=== PATIENT | male | born 1945 | race Caucasian/White ===

== ENCOUNTER 2023-11-19 16:48 | Inpatient (IN) ==
[2023-11-19 17:32] LABS: Basophils # (auto) 0.05 K/uL (0.00-0.20); Basophils % (auto) 0.6 %; Eosinophils # (auto) 0.24 K/uL (0.00-0.50); Hematocrit (blood only) 43.3 % (42.0-52.0); Immature Granulocytes # (auto) 0.02 K/uL (0.01-0.20); Immature Granulocytes % (auto) 0.2 %; Lymphocytes # (auto) 1.42 K/uL (1.20-3.40); Lymphocytes % (auto) 17.5 %; Mean Corpuscular Hemoglobin 30.4 pg (25.0-34.0); Mean Corpuscular Hgb Conc 32.3 g/dL (32.0-36.0); Mean Corpuscular Volume 94.1 fL (80.0-100.0); Mean Platelet Volume 10.2 fL (9.4-12.4); Monocytes # (auto) 0.71 K/uL (0.11-0.59); Monocytes % (auto) 8.7 %; Neutrophils # (auto) 5.69 K/uL (1.40-6.50); Platelet Count 263 K/uL (130-400); RDW Coefficient of Variation 12.8 % (11.5-14.5); White Blood Count 8.13 K/ul (4.8-10.8)
--- NOTE | 2023-11-19 17:36 | XRay Report ---
XR chest 1V not portable HISTORY: 78 years-old Male Chest pain, nonspecific COMPARISON: 11/09/2011 TECHNIQUE: AP view chest FINDINGS: Cardiac silhouette is enlarged. Right IJ Ukisqv-d-Ryag catheter is in place. No pneumothorax. Layerin g left greater than right pleural effusions with bibasilar consolidation. Pulmonary vascular congesti on. Bilateral articulation with pulmonary nodules. Degenerative changes of the shoulders and spine. L umbar spinal fusion hardware. IMPRESSION: 1. Cardiomegaly with pulmonary vascular congestion. 2. Layering pleural effusions with left greater than right bibasilar consolidation. 2. Bilateral pulmonary nodules are noted in addition to a right IJ Fkudtl-i-Braj catheter. Correlate with oncologic history. ACT 112: Negative or not required by law. The above report was generated using voice recognition software. It may contain grammatical, syntax o r spelling errors. Electronically signed by: Narendra Mckee M.D. 11/19/2023 5:35 PM
[2023-11-19 17:48] LABS: Albumin Globulin Ratio 1.5 (0.9-2); Albumin Level 4.4 gm/dl (3.4-5.0); BUN Creatinine Ratio 12.1 (10-20); Bilirubin,Total 0.4 mg/dl (0.2-1.0); Calcium 9.3 mg/dl (8.6-10.3); Creatinine Clr Calc Pharmacy 26.6 ml/min; Est GFR (African American) 33.2 ml/min; Est GFR (Non-African American) 28.6 ml/min; Globulin 2.9 gm/dl (2.5-4.0); Potassium 4.3 mmol/L (3.5-5.1); Total Protein 7.3 gm/dl (6.0-8.3)
[2023-11-19 17:54] LABS: Troponin I High Sensitivity 5.3 pg/ml (0-20)
[2023-11-19 17:59] LABS: Partial Thromboplastin Ratio 1.1; Partial Thromboplastin Time 32 Seconds (21-31); Prothrombin Time 11.2 Seconds (9.0-12.0)
--- NOTE | 2023-11-19 18:49 | Emergency Department Note ---
Impression & Plan BRUCE (acute kidney injury), Pleural effusion ED Provider Note NAME: PIETER ZIEGLER III AGE: 78 SEX: M : 1945 ARRIVES VIA: Walk-In INFORMANT: Patient, ED PROVIDER(S): Joao Perez MD CHIEF COMPLAINT: Shortness of breath HPI: This is a 78-year-old male with history of metastatic renal cancer presenting for shortness of breath. Patient states that over the past 1 week he has had chest pain in his right lower chest as well as left chest as well. He notes it is intermittent but mostly worse with exertion. He notes that he is extremely short of breath especially with walking. He states he cannot walk more than a few feet without feeling extremely winded. He notes that he follows with heme-onc at [facility] who gives him Keytruda every 21 days. His last treatment was about 2 weeks ago. Denies any cardiac history shows heart attack, CHF. No history of blood clots, is on no blood thinners. No current fever chills nausea or vomiting. No recent leg swelling or leg pain. Patient mentions that he has his left kidney completely moved due to his renal carcinoma only has his right now. ROS: See above HPI for pertinent positives & negatives. A total of 10 systems reviewed and were otherwise negative. PAST MEDICAL HISTORY: See Below PAST SURGICAL HISTORY: See Below FAMILY HISTORY: See Below SOCIAL HISTORY: See Below HOME MEDICATIONS: See Below ALLERGIES: See Below VITALS: See Below PHYSICAL EXAMINATION: General: resting comfortably in no acute distress Head: Normocephalic and atraumatic Eyes: Normal inspection, extraocular muscles intact Ear, nose, throat: Normal external exam Neck: Normal range of motion Respiratory: Diminished lung sounds at the left Cardiovascular: Regular rate/rhythm, no murmur GI: soft, nontender, no guarding or rebound Extremities: nontender, moves all extremities, no swelling, 2+ pulses in all extremities Neuro: The patient awake and alert, appropriately conversive, no focal deficits, symmetric faces Skin: Warm, dry, and intact MEDICAL DECISION MAKING: Is a 78-year-old male with history of metastatic renal cancer resenting for shortness of breath. Consider multiple including PE, ACS, pleural effusion, metastatic CA, pneumonia. -Upon record review, it appears that patient's previous creatinine was 1.7, now is 2.5. He only has 1 kidney and making this somewhat concerning for an BRUCE. -Otherwise patient does have a chest x-ray that as per independent interpretation reveals a left pleural effusion without focal opacity or pneumothorax. -Blood work otherwise reveals no leukocytosis, anemia, no significant electrolyte disturbances, LFTs within normal limits. Troponin and BNP are both within normal limits as well. -Patient is significantly dyspneic with exertion, diabetes is like related to his pleural effusion. This may be metastatic in etiology. Otherwise patient required mission for the pleural effusions as well as BRUCE and solitary kidney. -There is a slight concern for PE as patient's cancer he has not tachycardic or hypoxic making this lower likelihood. -ECG independently interpreted by me with normal sinus rhythm, rate of 60, normal axis, normal MD, normal QRS, normal QTc, no ST segment elevations consistent with STEMI criteria Differential diagnosis: See above ER treatment provided: See below Diagnostics interpreted by me: ECG: See above Cardiac Monitoring: An order was placed for continuous cardiac monitoring. The monitor shows a rate of 67 with sinus rhythm. Laboratory studies: As stated above and show below. Imaging studies: See below. Past Med/Surg History Social History Smoking Status: Never smoker Feels Safe at Home: Yes Allergies Allergies Allergy/AdvReac Type Severity Reaction Status Date / Time lisinopril Allergy Severe LIP EDEMA Verified 11/19/23 19:05 Home Meds Home Medications Medication Instructions Recorded Confirmed aspirin 81 mg tablet,delayed 81 mg PO QPM 11/19/23 11/19/23 release atorvastatin 20 mg tablet 20 mg PO QPM 11/19/23 11/19/23 diclofenac sodium 1 % topical gel 2 g topical QID PRN Pain 11/19/23 11/19/23 doxazosin 4 mg tablet 4 mg PO QPM 11/19/23 11/19/23 doxycycline hyclate 100 mg capsule 100 mg PO BID PRN LYME FLARE-UPS 11/19/23 11/19/23 famotidine 40 mg tablet 40 mg PO HS PRN 11/19/23 11/19/23 HEARTBURN/INDIGESTION gabapentin 600 mg tablet See Rx Instructions .Route .COMPLEX 11/19/23 11/19/23 lidocaine 5 % topical patch 1 patch topical DAILY PRN Pain 11/19/23 11/19/23 lidocaine-prilocaine 2.5 %-2.5 % 1 applic topical DIRECTED PRN 1 11/19/23 11/19/23 topical cream HR PRIOR TO MEDIPORT ACCESS modafinil 100 mg tablet 100 mg PO DIRECTED PRN Fatigue 11/19/23 11/19/23 multivitamin 1 tab PO QPM 11/19/23 11/19/23 omeprazole 20 mg capsule,delayed 20 mg PO QPM 11/19/23 11/19/23 release ondansetron HCl 8 mg tablet 8 mg PO Q8H PRN NAUSEA/VOMITING 11/19/23 11/19/23 prochlorperazine maleate 10 mg 10 mg PO Q6H PRN NAUSEA/VOMITING 11/19/23 11/19/23 tablet (Compazine) tramadol 50 mg tablet 50 mg PO Q8H PRN Pain 11/19/23 11/19/23 Results & Data (ED) Vital Signs Vital Signs - 24 hr 11/19/23 17:03 11/19/23 17:56 11/19/23 18:35 Temperature 36.8 C Temperature Source Temporal Artery Scan Pulse Rate 68 57 L Pulse Rate [Finger] 60 Respiratory Rate 16 18 Respiratory Effort / Characteristics Non-Labored Spontaneous Non-Labored Spontaneous Respiratory Depth Normal Normal Blood Pressure 115/74 Blood Pressure [Left Arm] 115/69 Blood Pressure Mean 87 Blood Pressure Mean [Left Arm] 84 Blood Pressure Position Sitting Pulse Oximetry 93 95 Oxygen Delivery Method Room Air Room Air Sepsis Recent Fever Within 48 Hours No Sepsis New/Unexplained Change in Mental Status N/A Sepsis Action Taken by Nursing No Action Required 11/19/23 21:00 11/19/23 22:02 Temperature Temperature Source Pulse Rate 67 Pulse Rate [Finger] 58 L Respiratory Rate 14 Respiratory Effort / Characteristics Respiratory Depth Blood Pressure Blood Pressure [Left Arm] 154/88 H Blood Pressure Mean Blood Pressure Mean [Left Arm] 110 Blood Pressure Position Pulse Oximetry 93 Oxygen Delivery Method Room Air Sepsis Recent Fever Within 48 Hours Sepsis New/Unexplained Change in Mental Status Sepsis Action Taken by Nursing Laboratory Data 11/19/23 17:10 11/19/23 17:10 Lab Results 11/19/23 Range/Units 17:10 WBC 8.13 (4.8-10.8) K/ul RBC 4.60 L (4.70-6.10) M/uL Hgb 14.0 (14.0-18.0) g/dl Hct 43.3 (42.0-52.0) % MCV 94.1 (80.0-100.0) fL MCH 30.4 (25.0-34.0) pg MCHC 32.3 (32.0-36.0) g/dL RDW Std Deviation 44.0 (36.4-46.3) fL RDW Coeff of Karlene 12.8 (11.5-14.5) % Plt Count 263 (130-400) K/uL MPV 10.2 (9.4-12.4) fL Immature Gran % (Auto) 0.2 % Neut % (Auto) 70.0 % Lymph % (Auto) 17.5 % [place] % (Auto) 8.7 % Eos % (Auto) 3.0 % Baso % (Auto) 0.6 % Neut # (Auto) 5.69 (1.40-6.50) K/uL Lymph # (Auto) 1.42 (1.20-3.40) K/uL [place] # (Auto) 0.71 H (0.11-0.59) K/uL Eos # (Auto) 0.24 (0.00-0.50) K/uL Baso # (Auto) 0.05 (0.00-0.20) K/uL Immature Gran # (Auto) 0.02 (0.01-0.20) K/uL PT 11.2 (9.0-12.0) Seconds INR 1.0 (0.9-1.1) APTT 32 H (21-31) Seconds PTT Ratio 1.1 Sodium 137 (136-145) mmol/L Potassium 4.3 (3.5-5.1) mmol/L Chloride 102 (98-107) mmol/L Carbon Dioxide 26 (21-32) mmol/L Anion Gap 9 (3-11) BUN 26 H (6-23) mg/dl Creatinine 2.15 H (0.6-1.4) mg/dl Est Cr Clr Drug Dosing 26.6 ml/min Est GFR ( Amer) 33.2 ml/min Est GFR (Non-Af Amer) 28.6 ml/min BUN/Creatinine Ratio 12.1 (10-20) Glucose 135 H (70-99(Fasting)) mg/dl Calcium 9.3 (8.6-10.3) mg/dl Total Bilirubin 0.4 (0.2-1.0) mg/dl AST 21 (13-39) U/L ALT 15 (7-52) U/L Alkaline Phosphatase 98 (34-104) U/L Troponin I High Sens 5.3 (0-20) pg/ml B-Natriuretic Peptide 39 (0-100) pg/ml Total Protein 7.3 (6.0-8.3) gm/dl Albumin 4.4 (3.4-5.0) gm/dl Globulin 2.9 (2.5-4.0) gm/dl Albumin/Globulin Ratio 1.5 (0.9-2) Administered Medications Acetaminophen (Acetaminophen 325 Mg Tab) 650 mg PO Q4H PRN PRN Reason: Pain or Fever Stop: 12/19/23 23:18 Last Admin: 11/19/23 23:32 Dose: 650 mg Documented By: NABIL Discontinued Medications Aspirin (Aspirin 81 Mg Ectab) 81 mg PO NOW STA Stop: 11/19/23 22:30 Last Admin: 11/19/23 23:10 Dose: 81 mg Documented By: NABIL Atorvastatin Calcium (Atorvastatin 20 Mg Tab) 20 mg PO NOW STA Stop: 11/19/23 22:30 Last Admin: 11/19/23 23:11 Dose: 20 mg Documented By: NABIL Doxazosin Mesylate (Doxazosin Mesylate 4 Mg Tab) 4 mg PO NOW STA Stop: 11/19/23 22:30 Last Admin: 11/19/23 23:12 Dose: 4 mg Documented By: NABIL Famotidine (Famotidine 40 Mg Tablet) 40 mg PO NOW STA Stop: 11/19/23 22:47 Last Admin: 11/19/23 23:13 Dose: 40 mg Documented By: NABIL Gabapentin (Gabapentin 600 Mg Tab) 1,200 mg PO NOW STA Stop: 11/19/23 22:30 Last Admin: 11/19/23 23:10 Dose: 1,200 mg Documented By: NABIL Pantoprazole Sodium (Pantoprazole 40 Mg Tab) 40 mg PO NOW STA Stop: 11/19/23 22:30 Last Admin: 11/19/23 23:10 Dose: 40 mg Documented By: NABIL Tramadol HCl (Tramadol Hcl 50 Mg Tablet) 50 mg PO NOW STA Stop: 11/19/23 21:40 Last Admin: 11/19/23 21:44 Dose: 50 mg Documented By: BMK Imaging Data Radiologist's Impression: Chest X-Ray 11/19/23 17:07 XR chest 1V not portable HISTORY: 78 years-old Male Chest pain, nonspecific COMPARISON: 11/09/2011 TECHNIQUE: AP view chest FINDINGS: Cardiac silhouette is enlarged. Right IJ Ilqcax-s-Avca catheter is in place. No pneumothorax. Layering left greater than right pleural effusions with bibasilar consolidation. Pulmonary vascular congestion. Bilateral articulation with pulmonary nodules. Degenerative changes of the shoulders and spine. Lumbar spinal fusion hardware. IMPRESSION: 1. Cardiomegaly with pulmonary vascular congestion. 2. Layering pleural effusions with left greater than right bibasilar consolidation. 2. Bilateral pulmonary nodules are noted in addition to a right IJ Xcxqgt-d-Lgzz catheter. Correlate with oncologic history. ACT 112: Negative or not required by law. The above report was generated using voice recognition software. It may contain grammatical, syntax or spelling errors. Electronically signed by: Narendra Mckee M.D. 11/19/2023 5:35 PM Discharge Plan Visit Data Chief Complaint: Shortness of Breath/Dyspnea Stated Complaint: TROUBLE BREATHING/SOB/PAINFUL, CHEST/BACK PAIN ED Provider: Joao Perez Discharge Problem: BRUCE (acute kidney injury), Pleural effusion Patient Disposition: Admitted As Inpatient Discharge Instructions Interventions: ED Discharge Assessment Last Done: 11/19/23 23:19
[2023-11-19] MEDS: traMADol HCL 50 MG TABLET PO STA (21:44)
--- NOTE | 2023-11-19 22:54 | History & Physical Report ---
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 Minimal exertion making very short of breath. Has some cough. No fevers. Has lower abdominal pain. No headache. No blurred visions. No runny nose or sore throat. Appetite is okay. No nausea. No diarrhea or constipation. No blood in stools. Normal bladder movements. Hemodynamics are okay. Shortness of breath Patient is on Keytruda for recurrence of renal cancer and worried could be side effect Possible pleural effusion chest x-ray Will do CT chest Will do VQ scan Nebs as needed Will check echocardiogram Close monitor Chest pains EKG and troponin okay Will follow serial enzymes and echo Consult cardiology in a.m. Hyperlipidemia On statin GERD Omeprazole BPH On doxazosin CKD stage III Presented creatinine of 2.1 Baseline creatinine seems to around 1.7-2 Will follow labs Transitional cell renal carcinoma on the left side S/p nephrectomy Recurrence Currently on Keytruda Follows with [facility] DVT prophylaxis Heparin subcu Disposition Telemetry Addendum: CT chest shows: 1. Multiple bilateral pulmonary nidus, consistent with metastasis. Correlate for primary malignancy. 2. Hepatic metastasis are also present. 3. Mild thickening/lymphadenopathy in the LEFT upper quadrant between the spleen and diaphragm, which is indeterminate. Evaluation limited without contrast. 4. Large LEFT pleural effusion. Consulted pulmonary. May need to discuss with the heme-onc Dr. 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 Minimal exertion making very short of breath. Has some cough. No fevers. Has lower abdominal pain. No headache. No blurred visions. No runny nose or sore throat. Appetite is okay. No nausea. No diarrhea or constipation. No blood in stools. Normal bladder movements. Hemodynamics are okay. Past medical history. As mentioned above Past surgical history. Appendectomy. Bladder instillation. Cystoscopy with lithotripsy. Cystoscopy and stent placement. Cystoscopy for treatment of bladder tumor. Cystourethroscopy with biopsy. Leg stents. Robotic laparoscopic left nephrectomy. Lumbar surgery. Kidney stone. TURP. Social history. . Quit smoking 2001. Smoked 3 packs a day for 33 years. Alcohol rarely. No drug use Family history. Brother had a heart attack. Mother had stomach aneurysm. Paternal aunt had stomach aneurysm Allergies Allergy/AdvReac Type Severity Reaction Status Date / Time lisinopril Allergy Severe LIP EDEMA Verified 11/19/23 19:05 Home Medications Medication Instructions Recorded Confirmed Type aspirin 81 mg tablet,delayed 81 mg PO QPM 11/19/23 11/19/23 History release atorvastatin 20 mg tablet 20 mg PO QPM 11/19/23 11/19/23 History diclofenac sodium 1 % topical gel 2 g topical QID PRN Pain 11/19/23 11/19/23 History doxazosin 4 mg tablet 4 mg PO QPM 11/19/23 11/19/23 History doxycycline hyclate 100 mg capsule 100 mg PO BID PRN LYME FLARE-UPS 11/19/23 11/19/23 History famotidine 40 mg tablet 40 mg PO HS PRN 11/19/23 11/19/23 History HEARTBURN/INDIGESTION gabapentin 600 mg tablet See Rx Instructions .Route .COMPLEX 11/19/23 11/19/23 History lidocaine 5 % topical patch 1 patch topical DAILY PRN Pain 11/19/23 11/19/23 History lidocaine-prilocaine 2.5 %-2.5 % 1 applic topical DIRECTED PRN 1 11/19/23 11/19/23 History topical cream HR PRIOR TO MEDIPORT ACCESS modafinil 100 mg tablet 100 mg PO DIRECTED PRN Fatigue 11/19/23 11/19/23 History multivitamin 1 tab PO QPM 11/19/23 11/19/23 History omeprazole 20 mg capsule,delayed 20 mg PO QPM 11/19/23 11/19/23 History release ondansetron HCl 8 mg tablet 8 mg PO Q8H PRN NAUSEA/VOMITING 11/19/23 11/19/23 History prochlorperazine maleate 10 mg 10 mg PO Q6H PRN NAUSEA/VOMITING 11/19/23 11/19/23 History tablet (Compazine) tramadol 50 mg tablet 50 mg PO Q8H PRN Pain 11/19/23 11/19/23 History Past Med/Surg History Social History Smoking Status: Never smoker Hx Alcohol Use: No Hx Substance Use: No Preferred Language: Malay Communication Ability: Effective Food Service Coordinator Required: No Beliefs That Will Affect Care: None Current Living Situation: Spouse Other Information That Helps Us Care for You: No Feels Safe at Home: Yes Safety Concerns: Feels Safe At This Time Assistive Devices: Cane Review of Systems Review of Systems: All systems reviewed & are unremarkable except as noted in HPI & below Physical Exam Physical Exam: General- Not in distress Head- atraumatic Eyes- PERRL ENT- oropharynx clear Neck- supple, no JVD. Lungs- clear to auscultation mild bibasilar crackles, no wheezing Heart- regular rhythm; no murmur, no gallop. Abdomen- normal bowel sounds, soft, nontender, no distension. Extremities- no pretibial edema, no erythema seen. Neuro- alert, oriented PERRL, no facial palsy; no dysarthria; moves extremities. Skin- warm & dry Results & Data Results & Data Vital Signs (Past 12 Hours) Vital Signs Temp Pulse Pulse Resp BP BP Pulse Ox 11/19/23 22:02 67 11/19/23 21:00 58 L 14 154/88 H 93 11/19/23 18:35 57 L 11/19/23 17:56 60 18 115/69 95 11/19/23 17:03 36.8 C 68 16 115/74 93 O2 Del Method 11/19/23 22:02 11/19/23 21:00 Room Air 11/19/23 18:35 11/19/23 17:56 Room Air 11/19/23 17:03 Room Air Diagnostic Findings Laboratory Results WBC 8.13 K/ul (4.8-10.8) 11/19/23 17:10 RBC 4.60 M/uL (4.70-6.10) L 11/19/23 17:10 Hgb 14.0 g/dl (14.0-18.0) 11/19/23 17:10 Hct 43.3 % (42.0-52.0) 11/19/23 17:10 MCV 94.1 fL (80.0-100.0) 11/19/23 17:10 MCH 30.4 pg (25.0-34.0) 11/19/23 17:10 MCHC 32.3 g/dL (32.0-36.0) 11/19/23 17:10 RDW Std Deviation 44.0 fL (36.4-46.3) 11/19/23 17:10 RDW Coeff of Karlene 12.8 % (11.5-14.5) 11/19/23 17:10 Plt Count 263 K/uL (130-400) 11/19/23 17:10 MPV 10.2 fL (9.4-12.4) 11/19/23 17:10 Immature Gran % (Auto) 0.2 % 11/19/23 17:10 Neut % (Auto) 70.0 % 11/19/23 17:10 Lymph % (Auto) 17.5 % 11/19/23 17:10 [place] % (Auto) 8.7 % 11/19/23 17:10 Eos % (Auto) 3.0 % 11/19/23 17:10 Baso % (Auto) 0.6 % 11/19/23 17:10 Neut # (Auto) 5.69 K/uL (1.40-6.50) 11/19/23 17:10 Lymph # (Auto) 1.42 K/uL (1.20-3.40) 11/19/23 17:10 [place] # (Auto) 0.71 K/uL (0.11-0.59) H 11/19/23 17:10 Eos # (Auto) 0.24 K/uL (0.00-0.50) 11/19/23 17:10 Baso # (Auto) 0.05 K/uL (0.00-0.20) 11/19/23 17:10 Immature Gran # (Auto) 0.02 K/uL (0.01-0.20) 11/19/23 17:10 PT 11.2 Seconds (9.0-12.0) 11/19/23 17:10 INR 1.0 (0.9-1.1) 11/19/23 17:10 APTT 32 Seconds (21-31) H 11/19/23 17:10 PTT Ratio 1.1 11/19/23 17:10 Sodium 137 mmol/L (136-145) 11/19/23 17:10 Potassium 4.3 mmol/L (3.5-5.1) 11/19/23 17:10 Chloride 102 mmol/L (98-107) 11/19/23 17:10 Carbon Dioxide 26 mmol/L (21-32) 11/19/23 17:10 Anion Gap 9 (3-11) 11/19/23 17:10 BUN 26 mg/dl (6-23) H 11/19/23 17:10 Creatinine 2.15 mg/dl (0.6-1.4) H 11/19/23 17:10 Est Cr Clr Drug Dosing 26.6 ml/min 11/19/23 17:10 Est GFR ( Amer) 33.2 ml/min 11/19/23 17:10 Est GFR (Non-Af Amer) 28.6 ml/min 11/19/23 17:10 BUN/Creatinine Ratio 12.1 (10-20) 11/19/23 17:10 Glucose 135 mg/dl (70-99(Fasting)) H 11/19/23 17:10 Calcium 9.3 mg/dl (8.6-10.3) 11/19/23 17:10 Total Bilirubin 0.4 mg/dl (0.2-1.0) 11/19/23 17:10 AST 21 U/L (13-39) 11/19/23 17:10 ALT 15 U/L (7-52) 11/19/23 17:10 Alkaline Phosphatase 98 U/L (34-104) 11/19/23 17:10 Troponin I High Sens 5.3 pg/ml (0-20) 11/19/23 17:10 B-Natriuretic Peptide 39 pg/ml (0-100) 11/19/23 17:10 Total Protein 7.3 gm/dl (6.0-8.3) 11/19/23 17:10 Albumin 4.4 gm/dl (3.4-5.0) 11/19/23 17:10 Globulin 2.9 gm/dl (2.5-4.0) 11/19/23 17:10 Albumin/Globulin Ratio 1.5 (0.9-2) 11/19/23 17:10 Impressions Chest X-Ray 11/19/23 17:07 XR chest 1V not portable HISTORY: 78 years-old Male Chest pain, nonspecific COMPARISON: 11/09/2011 TECHNIQUE: AP view chest FINDINGS: Cardiac silhouette is enlarged. Right IJ Qruiji-l-Qjzt catheter is in place. No pneumothorax. Layering left greater than right pleural effusions with bibasilar consolidation. Pulmonary vascular congestion. Bilateral articulation with pulmonary nodules. Degenerative changes of the shoulders and spine. Lumbar spinal fusion hardware. IMPRESSION: 1. Cardiomegaly with pulmonary vascular congestion. 2. Layering pleural effusions with left greater than right bibasilar consolidation. 2. Bilateral pulmonary nodules are noted in addition to a right IJ Cksmbl-s-Owub catheter. Correlate with oncologic history. ACT 112: Negative or not required by law. The above report was generated using voice recognition software. It may contain grammatical, syntax or spelling errors. Electronically signed by: Narendra cMkee M.D. 11/19/2023 5:35 PM ECG Additional Comments: ECG. Sinus rhythm with short HI. Rate of 60. Nonspecific T wave abnormalities. Code Status & VTE Plan VTE Prophylaxis Plan VTE Prophylaxis will be ordered: Yes
[2023-11-19] MEDS: PANTOprazole 40 MG TAB PO STA (23:10)
[2023-11-19] MEDS: ASPIRIN 81 MG ECTAB PO STA (23:10)
[2023-11-19] MEDS: GABAPENTIN 600 MG TAB PO STA (23:10)
[2023-11-19] MEDS: ATORVASTATIN 20 MG TAB PO STA (23:11)
[2023-11-19] MEDS: DOXAZosin MESYLATE 4 MG TAB PO STA (23:12)
[2023-11-19] MEDS: FAMOTIDINE 40 MG TABLET PO STA (23:13)
[2023-11-19] MEDS ORDERED: NITROGLYCERIN SL 0.4 MG/TAB TAB SL PRN (23:19)
[2023-11-19] MEDS ORDERED: LIDOCAINE 5% 1 PATCH TD PRN (23:19)
[2023-11-19] MEDS ORDERED: DOXYCYCLINE HYCLATE 100 MG CAP PO PRN (23:19)
[2023-11-19] MEDS ORDERED: DICLOFENAC SOD 1% GEL 100 GM TUBE EXT PRN (23:19)
[2023-11-19] MEDS ORDERED: FAMOTIDINE 40 MG TABLET PO PRN (23:19)
[2023-11-19] MEDS ORDERED: LIDOCAINE/PRILOCAINE 2.5% EA CRM EXT PRN (23:19)
[2023-11-19] MEDS ORDERED: POLYETHYLENE (MIRALAX) 17 GM PACK PO PRN (23:19)
[2023-11-19] MEDS ORDERED: modafiniL 100 MG TAB PO PRN (23:19)
[2023-11-19] MEDS ORDERED: LEVALBUTEROL 1.25 MG/3 ML NEB NEB PRN (23:19)
[2023-11-19] MEDS: ACETAMINOPHEN 325 MG TAB PO PRN (23:32)
--- NOTE | 2023-11-20 00:13 | CT Scan Report ---
Exam(s): CT CHEST Without Contrast EXAM: CT Chest Without Intravenous Contrast CLINICAL HISTORY: Reason for exam: chest pain and sob. TECHNIQUE: Axial computed tomography images of the chest without intravenous contrast. Automated exposure control was utilized for the study. A dose lowering technique was utilized adhering to the principles of ALARA. COMPARISON: No relevant prior studies available. FINDINGS: Lungs: Multiple bilateral pulmonary nidus, consistent with metastasis. Correlate for primary malignancy. No consolidation. Pleural space: Large LEFT pleural effusion. No pneumothorax. Heart: Unremarkable. No cardiomegaly. No significant pericardial effusion. No significant coronary artery calcifications. Bones/joints: Degenerative changes of the spine. No acute fracture. No dislocation. Soft tissues: Unremarkable. Vasculature: Atherosclerotic changes of the aorta. No thoracic aortic aneurysm. Lymph nodes: Mild thickening/lymphadenopathy in the LEFT upper quadrant between the spleen and diaphragm, which is indeterminate. Evaluation limited without contrast. Liver: Hepatic metastasis are also present. IMPRESSION: 1. Multiple bilateral pulmonary nidus, consistent with metastasis. Correlate for primary malignancy. 2. Hepatic metastasis are also present. 3. Mild thickening/lymphadenopathy in the LEFT upper quadrant between the spleen and diaphragm, which is indeterminate. Evaluation limited without contrast. 4. Large LEFT pleural effusion. Electronically signed by: Jason Hutchins MD 11/20/23 00:12 AM
--- NOTE | 2023-11-20 00:14 | CT Scan Report ---
Exam(s): CT ABDOMEN + PELVIS Without Contrast EXAM: CT Abdomen and Pelvis Without Intravenous Contrast CLINICAL HISTORY: Reason for exam: abdominal pain. hx of renal cancer. TECHNIQUE: Axial computed tomography images of the abdomen and pelvis without intravenous contrast. Automated exposure control was utilized for the study. A dose lowering technique was utilized adhering to the principles of ALARA. COMPARISON: No relevant prior studies available. FINDINGS: Lung bases: Unremarkable. No mass. No consolidation. ABDOMEN: Liver: Hepatic metastases. Gallbladder and bile ducts: Unremarkable. No calcified stones. No ductal dilation. Pancreas: Unremarkable. No ductal dilation. Spleen: Unremarkable. No splenomegaly. Adrenals: Unremarkable. No mass. Kidneys and ureters: Multiple renal cysts. LEFT nephrectomy, correlate for history of renal cell carcinoma. Stomach and bowel: Diverticulosis, without acute diverticulitis. No small bowel obstruction. No free intraperitoneal air. PELVIS: Appendix: No findings to suggest acute appendicitis. Bladder: Unremarkable. No stones. Reproductive: Vasectomy clips. ABDOMEN and PELVIS: Intraperitoneal space: Unremarkable. No free air. No significant fluid collection. Bones/joints: Degenerative changes of the spine. Multilevel posterior lumbar fusion hardware. No acute fracture. No dislocation. Soft tissues: Unremarkable. Vasculature: Atherosclerotic changes of the aorta. No abdominal aortic aneurysm. Lymph nodes: Enlarged retroperitoneal lymph nodes, preferentially located on the LEFT side of the aorta. Mild scarring between the spleen and LEFT hemidiaphragm. IMPRESSION: 1. Enlarged retroperitoneal lymph nodes, preferentially located on the LEFT side of the aorta. Mild scarring between the spleen and LEFT hemidiaphragm. 2. Hepatic metastases. 3. Multiple renal cysts. LEFT nephrectomy, correlate for history of renal cell carcinoma. 4. Diverticulosis, without acute diverticulitis. No small bowel obstruction. No free intraperitoneal air. Electronically signed by: Jason Hutchins MD 11/20/23 00:13 AM
[2023-11-20] MEDS: traMADol HCL 50 MG TABLET PO PRN (00:29)
[2023-11-20 04:13] LABS: Basophils # (auto) 0.06 K/uL (0.00-0.20); Basophils % (auto) 0.9 %; Eosinophils # (auto) 0.29 K/uL (0.00-0.50); Eosinophils % (auto) 4.2 %; Hemoglobin 12.5 g/dl (14.0-18.0); Immature Granulocytes # (auto) 0.02 K/uL (0.01-0.20); Immature Granulocytes % (auto) 0.3 %; Lymphocytes # (auto) 1.31 K/uL (1.20-3.40); Lymphocytes % (auto) 18.8 %; Mean Corpuscular Hemoglobin 30.8 pg (25.0-34.0); Mean Corpuscular Hgb Conc 32.9 g/dL (32.0-36.0); Mean Corpuscular Volume 93.6 fL (80.0-100.0); Mean Platelet Volume 10.4 fL (9.4-12.4); Monocytes # (auto) 0.72 K/uL (0.11-0.59); Monocytes % (auto) 10.4 %; Neutrophils # (auto) 4.55 K/uL (1.40-6.50); Neutrophils % (auto) 65.4 %; Platelet Count 230 K/uL (130-400); RDW Coefficient of Variation 12.5 % (11.5-14.5); RDW Standard Deviation 43.1 fL (36.4-46.3); Red Blood Count 4.06 M/uL (4.70-6.10); White Blood Count 6.95 K/ul (4.8-10.8)
[2023-11-20 04:28] LABS: BUN Creatinine Ratio 13.2 (10-20); Calcium 8.6 mg/dl (8.6-10.3); Creatinine Clr Calc Pharmacy 30.2 ml/min; Est GFR (African American) 38.8 ml/min; Est GFR (Non-African American) 33.5 ml/min; Potassium 4.4 mmol/L (3.5-5.1)
[2023-11-20 04:35] LABS: Troponin I High Sensitivity 5.6 pg/ml (0-20)
--- OUTSIDE RECORDS SUMMARY | 2023-11-20 05:45 | External Medical Summary | Summary of Care ---
Author Name Unknown Organization [facility] Address [address] [place] [address] Phone [phone] Care Team Providers Care Gis Coordinator Name Role Phone Elissa Carrero MD Primary Care Provider Reason for Visit * Reason Comments Chemotherapy C3/D1 - Keytruda * Episode Based Medications (Routine) - Authorized Specialty Diagnoses / Procedures Referred By Contac t Referred To Contact Diagnoses Cancer of left renal pelvis (HCC) Encounter for antineoplastic chemotherapy Malignant neoplasm of overlapping sites of bladder (HCC) Procedures SD INJ PEMBROLIZUMAB Romel Perez MD [address] [place] [address] [place] [address] Anc Hem/Onc [facility] Tammy [address] [place] [phone] Referral ID Status Reason Start Date Expiration Date V isits Requested Visits Authorized [id number] Authorized 09/11/2023 08/17/[phone] Encounter Details Date Type Department Care Team (Latest Contact Info) Description 11/05/2023 11:00 AM EST Hem/Onc Treatment Hematology/Oncolog y Treatment, [address] [phone] Tammy, Chair 3 Hem Onc [address] [place] [address] Cancer of left renal pelvis (HCC)*; Encounter for antineoplastic chemotherapy; Malignant neoplasm of overlapping sites of bladder (HCC) Allergies Active Allergy Reactions Criticality Noted Date Comments Lisinopril 07/04/2019 Other reaction(s): Angioedema Piroxicam 10/25/2022 Other reaction(s): muscle spasms documented as of this encounter (statuses as of 11/16/2023) Medications Medication Sig Dispensed Refills Start Date End Date Status MULTIVITAMINS PO TABS daily 0 Active Diclofenac Sodium 1 % gel Place topically on the skin. 0 08/28/2018 Active omeprazole (PRILOSEC) 20 MG CPDR Take by mouth. 0 09/15/2019 Active Prochlorperazine Maleate 10 MG Oral Tablet (Compazine)Indicatio ns:Cancer of left renal pelvis (HCC) Take by mouth 1 Tablet every 6 hours as needed for Nausea. 30 Tablet 0 06/27/2022 Active Ondansetron HCl 8 MG Oral TabletIndications:Ca ncer of left renal pelvis (HCC) Take by mouth 1 Tablet every 8 hours as needed for Nausea. 30 Tablet 0 06/27/2022 Active traMADol HCl 50 MG Oral Tablet (Ultram)Indications: Chronic low back pain, unspecified back pain laterality, unspecified whether sciatica present Take 1 Tablet by mouth every 8 hours as needed for Pain, Moderate. 90 Tablet 2 11/03/2022 Active Lidocaine 5 % External Patch (Lidoderm) Place 1 Patch topically on the skin daily as needed (pain). 90 Patch 3 01/24/2023 Active Atorvastatin Calcium 20 MG Oral Tablet (Lipitor) TAKE 1 TABLET AT BEDTIME 90 Tablet 3 05/14/2023 Active Gabapentin 600 MG Oral Tablet (Neurontin) 2 tablets in the morning, 1 tablet in the afternoon, 2 tablets in the evening 450 Tablet 3 05/24/2023 Active Famotidine 40 MG Oral Tablet (Pepcid) Take 1 Tablet by mouth at bedtime as needed for Heartburn. 90 Tablet 3 06/21/2023 Active Doxycycline Hyclate 100 MG Oral Tablet Take 1 Tablet by mouth in the morning and 1 Tablet before bedtime. Patient takes this "as needed" for lyme flare ups- starting it 09/06/23. 0 Active Lidocaine-Prilocaine 2.5-2.5 % External Cream (Emla)Indications:Ca ncer of left renal pelvis (HCC) APPLY TO SKIN OVER MEDIPORT & COVER 1HR PRIOR TO ACCESSING. 30 g 1 09/06/2023 Active Aspirin 81 MG Oral Capsule Take 1 Tablet by mouth every evening. 0 Active Modafinil 100 MG Oral Tablet (Provigil) Take 1 Tablet by mouth daily as needed (fatigue). 90 Tablet 1 10/10/2023 Active Doxazosin Mesylate 4 MG Oral Tablet (Cardura) Take 1 Tablet by mouth in the morning. 90 Tablet 3 10/24/2023 Active documented as of this encounter (statuses as of 11/16/2023) Active Problems Problem Noted Date Diagnosed Date Right inguinal pain 10/10/2023 Chronic kidney disease, stage 3b 01/22/2023 Overview: Per CKD protocol 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 Impaired fasting glucose 11/21/2022 Allergic rhinitis 10/27/2022 Fatigue 10/27/2022 LPRD (laryngopharyngeal reflux disease) 10/27/19 23 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 Chronic back pain 10/27/2022 Other specified anemias 10/27/2022 Encounter for antineoplastic chemotherapy 2021 Cancer of left renal pelvis 05/23/2022 Malignant neoplasm of overlapping sites of bladd er 05/12/2022 Bladder cancer 04/18/2017 GERD (gastroesophageal reflux disease) 7 HTN, goal below 130/80 11/15/2016 BPH without obstruction/lower urinary tract symp toms 11/15/2016 Vascular disease 11/15/2016 Hyperlipidemia with target LDL less than 130 09/2016 documented as of this encounter (statuses as of 11/16/2023) Resolved Problems Problem Noted Date Diagnosed Date Resolved Date Stage 3a chronic kidney disease 10/27/2022 01/24/2023 Overview: Per CKD protocol documented as of this encounter (statuses as of 11/16/2023) Immunizations Name Administration Dates Next Due COVID-19 mRNA, LNP-s, No Pre serve, 2-Dose Series (F[employer]) 01/09/2022,06/28/2021,11/10/2020,10/21 Pneumococcal Conjugate Vacc, 13 Valent (Prevnar) 01/14/2016 Pneumococcal Polysaccharide PPV23 (Pneumovax) 08/06/2013 Seasonal Influenza, Quadriva lent Hd (Fluzone Hd) 09/05/2023,06/27/2022,07/12/2021,06/17,06/26/2013 Seasonal Influenza, Quadriva lent Hd, 65+ Yrs 07/13/2020 Seasonal Influenza, Split, I IV3, With Preserve, Inj 09/30/2016,06/26/2013 Seasonal Influenza, Trivalen t, High Dose, No Preserve, IM 09/05/2019,08/07/2018 TD, Preservative Free 08/16/1990 TDAP (age 10 and older)(Boostrix) 09/30/2016 TDAP (age 11 and older)(Adacel) 08/06/2013 Varicella Zoster Vaccine (Adult) 09/03/2013 documented as of this encounter Social History Tobacco Use Types Packs/Day Years Used Date Smoking Tobacco: Former Cigarettes 3 33 0 09/17/1968 - 09/17/2001 Smokeless Tobacco: Never Alcohol Use Standard Drinks/Week Comments Yes 0 (1 standard drink = 0.6 oz pur e alcohol) rarely Sex and Gender Information Value Date Recorded Sex Assigned at Not on file Gender Identity Not on file Sexual Orientation Not on file Job Start Date Occupation Industry Not on file Not on file Not on file documented as of this encounter Last Filed Vital Signs Vital Sign Reading Time Taken Comments Blood Pressure 99/56 11/05/2023 11:00 AM EST Pulse 58 11/05/2023 11:00 AM EST Temperature 35.8 C (96.5 F) 11/05/2023 11:[address] Respiratory Rate 16 11/05/2023 11:00 AM EST Oxygen Saturation 93% 11/05/2023 11:00 AM EST Inhaled Oxygen Concentration - - Weight 77.1 kg (170 lb) 11/05/2023 11:00 AM EST Height - - Body Mass Index 29.16 10/10/2023 3:16 PM EST documented in this encounter Functional Status Functional Status Response Date of Assess ment Are you deaf or do you have serious difficulty h earing? No 05/23/2022 Are you blind or do you have serious difficulty seeing, even when wearing glasses? No 05/23/2022 Do you have serious difficul ty walking or climbing stairs? (5 years old or older) No 05/23/2022 Do you have difficulty dress ing or bathing? (5 years old or older) No 05/23/2022 Because of a physical, menta l, or emotional condition, do you have difficulty doing errands alone such as visiting a doctor s office or shopping? (15 years old or older) No 05/23/20 22 Cognitive Status Response Date of Assessm ent Because of a physical, menta l, or emotional condition, do you have serious difficulty concentrating, remembering, or making decisions? (5 years old or older) No 05/23/2022 documented as of this encounter Nursing Notes * Katia Short, RN - 11/05/2023 2:42 PM EST Chair 5. Port accessed. Labs WNL for tx. Patient here for Keytruda, feeling overall well. Chemo agents Keytruda Appetite overall good Nausea/Vomiting no Diarrhea no Constipation no Mucositis no Fatigue yes, says she does get quite fatigued typically for several days after tx, then starts to come back around Bleeding no Infection no Rash no Numbness tingling no Pain says he has lower back pain, towards hips and it rotates from R to L sides, typically takes Tylenol and Tramadol when needed Radiation no ABN Labs WNL for tx, Cr 1.7, at baseline for patient, patient only has 1 kidney Alt in Tx: N/A Return in 3 weeks Safety and Risk for Injury Patient will remain free from injury. Ensure appropriate safety devices are available. Provide and maintain safe environment. Goals: Patient will remain free from injury. Possible barriers to meeting goals: ambulating with IV pole Stability of the patient: Moderately stable - low risk of patient condition declining or worsening Summary regarding today's goals: Met: pt remained free of harm today Functional status at today's visit: Restricted in physically strenuous activity but ambulatory and able to carry out work on a light orsedentary nature, e.g. light house work, office work The drug name, dose, infusion volume, rate and route of administration, expiration date and time, appearance and physical integrity of the drug and rate set on the pump and sequencing of drug administration (as applicable) were verified by me and second sign-in RN. Patient was assessed for symptoms or adverse side effects during treatment. Patient tolerated treatment well without any acute issues or problems. Patient left facility in stable condition and denied any further needs. documented in this encounter Plan of Treatment Upcoming Encounters Date Type Department Care Team (Late st Contact Info) Description 11/23/2023 10:15 AM EST Office Visit Family Medicine, [facility] [address] [facility] [address] [place] [phone] Elissa Carrero MD [address] [facility] [address] [place] [address] 11/26/2023 12:30 PM EDT Laboratory Laboratory State [facility] Sanchez [address] [place] [phone] Tammy, Lab Scenery [address] [place] [address] 11/26/2023 1:30 PM EDT Hem/Onc Treatment Hematology/Oncology Treatment, [place] [address] [place] [phone] Tammy, Chair 8 Hem Onc Scen[address] [place] [address] 12/11/2023 9:45 AM EDT Imaging Radiology [address], [address] [address] 12/17/2023 8:30 AM EDT Laboratory Laboratory [facility] Sanchez [address] [place] [phone] Tammy, Lab Scenery [address] [place] [address] 12/17/2023 9:00 AM EDT Office Visit Hematology/Oncology [facility] [address] [place] [phone] Romel Perez MD [address] [place] [address] 12/17/2023 9:30 AM EDT Hem/Onc Treatment Hematology/Oncology Treatment, [place] [address] [place], [place] [phone] Tammy, Chair 8 Hem Onc [facility] [address] [facility] [place] [address] 05/13/2024 2:00 PM EDT Office Visit Nephrology, [facility] [address] [place] [address] Geraldo Sheehan MD [address] [place] [address] Health Maintenance Due Date Last Done Comments Depression Screening 1957 Albumin/Creatinine Ratio 02/07/1964 CKD PHOS USE SMARTSET 25800 02/07/1963 Zoster Vaccines (2 of 3) 10/29/2013 09/03/2013 COVID-19 Vaccine ( season) 2023 01/09/2022, 06/28/2021, 11/10/2020, Additional history exists GFR 05/05/2024 11/05/2023, 09/18, 09/24/2023, Additional history exists CKD HGB USE SMARTSET 90339 11/05/202411/05, 11/05/2023, 10/15/2023, Additional history exists DTaP,Tdap,and Td Vaccines (3 - Td or Tdap) 09/30/2026 09/30/2016, 08/06/2013, 08/16/1990 Pneumococcal Vaccine: 65+ Years Completed 01/14/2016, 08/06/2013 Hepatitis C Screening Completed 11/15/2020 Influenza Vaccine (FLU shot) Completed , 06/27/2022, 07/12/2021, Additional history exists GARDASIL-HPV IMMUNIZATION SERIES Aged Out No longer eligible based on patient's age to complete this topic Hepatitis B Aged Out No longer eligi ble based on patient's age to complete this topic MENINGOCOCCAL (MENACTRA/MENVEO) Aged Out No longer eligible based on patient's age to complete this topic documented as of this encounter Medical Devices Implanted Type Area Wrapper Operator Device Identifier Shelf Expiration Date Model / Serial / Lot Port Implant W/8f Poly Cath - [id number] Implanted:Qty : 1 on 09/21/2023 by Phill Patrick MD at [facility] Right: Chest CR BARD : PERIPHERAL VASCULAR [id number] 08/16/2024 [id number] / / [id number] documented as of this encounter Visit Diagnoses Diagnosis Cancer of left renal pelvis (HCC)- Primary Encounter for antineoplastic chemotherapy Malignant neoplasm of overlapping sites of bladder (HCC) Malignant neoplasm of other specified sites of bladder documented in this encounter Administered Medications Inactive Administered Medications - up to 3 most recent administrations Medication Order MAR Action Action Date Dose Rate Site hEParin 100 UNIT/ML Lock Flush inj 500 Units 500 Units (5 mL), IV Lock, PRN Other, IV Flush, Starting on Sun11/05/23 at 1118, Until Sun11/05/23 at 1846, For 24 hours, Do not flush if lock, PICC, or central line not in place; IV infusing or unable to flush. Given 11/05/2023 12:02 PM EST 500 Units NSS infusion Intravenous, at 50 mL/hr, PRN, Starting on Sun11/05/23 at 1230, Until Sun11/05/23 at 1846, Maintenance line Start Infusion 11/05/2023 11:19 AM EST 50 mL/hr Pembrolizumab (Keytruda) 200 mg in NSS 100 mL infusion 200 mg, IV Piggyback, ONCE, 1 dose, On Sun11/05/23 at 1300, Administer over 30 Minutes, Infuse through 0.2 micron filter. Start Infusion 11/05/2023 11:20 AM EST 200 mg 200 mL/hr sodium chloride 0.9 % flush central line 10 mL 10 mL, IV Push, PRN Other, IV Flush, Starting on Sun11/05/23 at 1118, Until Sun11/05/23 at 1846, For 24 hours, Do not flush if lock, PICC, or central line not in place; IV infusing or unable to flush. Given 11/05/2023 12:02 PM EST 10 mL documented in this encounter Advance Directives Latest Code Status on File Code Status Date Activated Date Inactivated Comments Full Code 08/29/2023 9:51 AM 08/29/2023 4:02 PM Thi s order reflects the patients wishes and were consensually agreed upon. Question Answer Comments Discussion of Advance Directives occurred with: Patient Does the patient have a Living Will? Yes, not currently available Does the patient have Health Care Power of Machine Adjuster Leader? Yes, not currently available Code Status History Code Status Date Activated Date Inactivated Comments Full Code 05/23/2022 6:38 PM 05/25/2022 7:08 PM This or barak reflects the patients wishes and were consensually agreed upon. Question Answer Comments Discussion of Advance Directives occurred with: Not Discussed due to patient's condition Full Code 05/23/2022 12:31 PM 05/23/2022 6:38 PM This o rder reflects the patients wishes and were consensually agreed upon. Question Answer Comments Discussion of Advance Directives occurred with: Not Discussed due to patient's condition Full Code 11/12/2017 2:18 PM 11/13/2017 8:58 PM Question Answer Comments Discussion of Advance Directives occurred with: Not Discussed Does the patient have a Living Will? No Does the patient have Health Care Power of Machine Adjuster Leader? No Care Teams Gis Coordinator Relationship Specialty Start Date End Date Elissa Carrero MD [address] [address] PCP - General Family Medicine 12/29/22 documented as of this encounter
--- OUTSIDE RECORDS SUMMARY | 2023-11-20 05:45 | External Medical Summary | Summary of Care ---
Author Name Unknown Organization [facility] Address [address] [place] [address] Phone [phone] Care Team Providers Care Nutritionists Name Role Phone Elissa Carrero MD Primary Care Provider Reason for Visit * Reason Comments Treatment * Episode Based Medications (Routine) - Authorized Specialty Diagnoses / Procedures Referred By Carolina t Referred To Contact Diagnoses Cancer of left renal pelvis (HCC) Encounter for antineoplastic chemotherapy Malignant neoplasm of overlapping sites of bladder (HCC) Procedures [place] INJ PEMBROLIZUMAB Romel Perez MD [address] [place] [id number] Anc Hem/Onc [address] [address] Referral ID Status Reason Start Date Expiration Date V isits Requested Visits Authorized [id number] Authorized 09/11/2023 08/17/[phone] Encounter Details Date Type Department Care Team (Latest Contact Info) Description 09/24/2023 2:00 PM EST Hem/Onc Treatment Hematology/Oncolog y Treatment, [address] [phone] Cancer of left renal pelvis (HCC)*; Encounter for antineoplastic chemotherapy; Malignant neoplasm of overlapping sites of bladder (HCC) Allergies Active Allergy Reactions Criticality Noted Date Comments Lisinopril 07/04/2019 Other reaction(s): Angioedema Piroxicam 10/25/2022 Other reaction(s): muscle spasms documented as of this encounter (statuses as of 11/14/2023) Medications Medication Sig Dispensed Refills Start Date End Date Status MULTIVITAMINS PO TABS daily 0 Active Diclofenac Sodium 1 % gel Place topically on the skin. 0 08/28/2018 Active omeprazole (PRILOSEC) 20 MG CPDR Take by mouth. 0 09/15/2019 Active Prochlorperazine Maleate 10 MG Oral Tablet (Compazine)Indica tions:Cancer of left renal pelvis (HCC) Take by mouth 1 Tablet every 6 hours as needed for Nausea. 30 Tablet 0 06/27/2022 Active Ondansetron HCl 8 MG Oral TabletIndications :Cancer of left renal pelvis (HCC) Take by mouth 1 Tablet every 8 hours as needed for Nausea. 30 Tablet 0 06/27/2022 Active traMADol HCl 50 MG Oral Tablet (Ultram)Indicatio ns:Chronic low back pain, unspecified back pain laterality, [...] flare ups- starting it 09/06/23. 0 Active Lidocaine-Priloca ine 2.5-2.5 % External Cream (Emla)Indications :Cancer of left renal pelvis (HCC) APPLY TO SKIN OVER MEDIPORT & COVER 1HR PRIOR TO ACCESSING. 30 g 1 09/06/2023 Active Aspirin 81 MG Oral Capsule Take 1 Tablet by mouth every evening. 0 Active Modafinil 100 MG Oral Tablet (Provigil) Take 1 Tablet by mouth as needed (fatigue). 90 Tablet 1 11/03/2022 10/10/2023 Discontinue d(Refill) Doxazosin Mesylate 4 MG Oral Tablet (Cardura) TAKE 1 TABLET DAILY 90 Tablet 3 11/06/2022 10/24/2023 Discontinue d(Refill) documented as of this encounter (statuses as of 11/14/2023) Active Problems Problem Noted Date Diagnosed Date Chronic kidney disease, stage 3b 01/22/2023 Overview: Per CKD protocol 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 Impaired fasting glucose 11/21/2022 Allergic rhinitis 10/27/2022 Fatigue 10/27/2022 LPRD (laryngopharyngeal reflux disease) 10/27/19 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 Chronic back pain 10/27/2022 Other [...] as of this encounter (statuses as of 11/14/2023) Resolved Problems Problem Noted Date Diagnosed Date Resolved Date Stage 3a chronic kidney disease 10/27/2022 01/24/2023 Overview: Per CKD protocol documented as of this encounter (statuses as of 11/14/2023) Immunizations Name Administration Dates Next Due COVID-19 mRNA, LNP-s, No Pre serve, 2-Dose Series (Notch Wearable Movement Capture) 01/09/2022,06/28/2021,11/10/2020,10/21 Pneumococcal Conjugate Vacc, 13 Valent (Prevnar) [...] Sign Reading Time Taken Comments Blood Pressure 121/76 09/24/2023 1:46 PM EST Pulse 71 09/24/2023 1:46 PM EST Temperature 36.4 C (97.5 F) 09/24/2023 1:46 PM ES T Respiratory Rate 18 09/24/2023 1:46 PM EST Oxygen Saturation 97% 09/24/2023 1:46 PM EST Inhaled Oxygen Concentration - - Weight - - Height - - Body Mass Index - - documented in this encounter Functional Status Functional [...] (15 years old or older) No 05/23/20 Cognitive Status Response Date of Assessm ent Because of a physical, menta l, or emotional condition, do you have serious difficulty concentrating, remembering, or making decisions? (5 years old or older) No 05/23/2022 documented as of this encounter Nursing Notes * Stacey De Leon RN - 09/24/2023 2:48 PM EST Safety and Risk for Injury Patient will remain free from injury. Ensure appropriate safety devices are available. Provide and maintain safe environment. Functional status at today's visit: Fully active, able to carry on all pre-disease performance without restriction The drug name, dose, infusion volume, rate and route of administration, expiration date and time, appearance and physical integrity of the drug and rate set on the pump and sequencing of drug administration (as applicable) were verified by me and second sign-in RN. Patient was assessed for symptoms or adverse side effects during treatment. Goals: Patient here for day 1 cycle 1 Keytruda. Possible barriers to meeting goals: IV pole and central line. Stability of the patient: Moderately stable - low risk of patient condition declining or worsening Summary regarding today's goals: Met: Patient received treatment without any issues. documented in this encounter Plan of Treatment Upcoming Encounters Date Type Department Care Team (Late st Contact Info) Description 11/23/2023 10:15 AM EST Office Visit Family Medicine, [facility] [address] [facility] [address] [place] [address] Elissa Carrero MD [address] [facility] [address] [place] [address] 11/26/2023 12:30 PM EDT Laboratory Laboratory [facility] [place] [address] [facility] [place] [phone] Tammy, Lab Scenery [address] [facility] [place] [address] 11/26/2023 1:30 PM EDT Hem/Onc Treatment Hematology/Oncology Treatment, [place] [address] [place] [phone] Tammy, Chair 8 Hem Onc Scenery [address] [facility] [address] [place], [place] [address] 12/11/2023 9:45 AM EDT Imaging Radiology [address], [place] [facility] [place] [address] 12/17/2023 8:30 AM EDT Laboratory Laboratory [facility] [place] [address] [place] [phone] Tammy, Lab [facility] [address] [facility] [place] [address] 12/17/2023 9:00 AM EDT Office Visit Hematology/Oncology [facility] [place] [address] [place] [phone] Romel Perez MD [address] [place] [address] 12/17/2023 9:30 AM EDT Hem/Onc Treatment Hematology/Oncology Treatment, [place] [address] [place], [place] [phone] Tammy, Chair 8 Hem Onc [facility] [address] [facility] [place], [place] [address] 05/13/2024 2:00 PM EDT Office Visit Nephrology, [facility] [address] [place], [place] [address] Geraldo Sheehan MD [address] [facility] [place], [place] [address] Health Maintenance Due Date Last Done Comments Depression Screening 1957 Albumin/Creatinine Ratio 02/07/1964 CKD PHOS USE SMARTSET 22086 02/07/1964 Zoster Vaccines (2 of 3) 10/29/2013 09/03/2013 COVID-19 Vaccine ( season) 2023 01/09/2022, 06/28/2021, 11/10/2020, Additional history exists GFR 05/05/2024 11/05/2023, 09/18, 09/24/2023, Additional history exists CKD HGB USE SMARTSET 33813 11/05/202411/05, 11/05/2023, 10/15/2023, Additional history exists DTaP,Tdap,and [...] this encounter Medical Devices Implanted Type Area Hyperion Developer Device Identifier Shelf Expiration Date Model / Serial / Lot Port Implant W/8f Poly Cath - [id number] Implanted:Qty : 1 on 09/21/2023 by Phill Patrick MD at [facility] Right: Chest CR BARD : PERIPHERAL VASCULAR [id number] 08/16/2024 [id number] / / [id number] documented as of this encounter Visit Diagnoses Diagnosis Cancer of left renal pelvis (HCC)- Primary Encounter for antineoplastic chemotherapy Malignant neoplasm of overlapping sites of bladder (HCC) Malignant neoplasm of other specified sites of bladder documented in this encounter Administered Medications Inactive Administered Medications - up to 3 most recent administrations Medication Order MAR Action Action Date Dose Rate Site NSS infusion Intravenous, at 50 mL/hr, PRN, Starting on Sun09/24/23 at 1500, Until Sun09/24/23 at 1904, Maintenance line Start Infusion 09/24/2023 2:10 PM EST 50 mL/hr Pembrolizumab (Keytruda) 200 mg in NSS 100 mL infusion 200 mg, IV Piggyback, ONCE, 1 dose, On Sun09/24/23 at 1530, Administer over 30 Minutes, Infuse through 0.2 micron filter. Start Infusion 09/24/2023 2:12 PM EST 200 mg 200 mL/hr documented in this encounter Advance Directives Latest [...] the patient have Health Care Power of Assistant Reading Teacher? Yes, not currently available Code Status History [...] the patient have Health Care Power of Assistant Reading Teacher? No Care Teams Nutritionists Relationship Specialty Start Date End Date Elissa Carrero MD [address] [address] PCP - General Family Medicine 12/29/22 documented as of this encounter
--- OUTSIDE RECORDS SUMMARY | 2023-11-20 05:45 | External Medical Summary | Summary of Care ---
Author Name Unknown Organization [facility] Address [address] [place] [address] Phone [phone] Care Team Providers Care Vice President Of Marketing Name Role Phone Elissa Carrero MD Primary Care Provider Reason for Visit * Reason Onset Date Comments Advice 10/04/2023 Encounter Details Date Type Department Care Team (Late st Contact Info) Description 10/04/2023 Telephone Hematology/Oncology, [facility] [address] [facility] [place] [address] Romel Perez MD 200 [place] [address] Advice Allergies Active Allergy Reactions Criticality Noted Date Comments Lisinopril 07/04/2019 Other reaction(s): Angioedema Piroxicam 10/25/2022 Other reaction(s): muscle spasms documented as of this encounter (statuses as of 11/15/2023) Medications Medication Sig Dispensed Refills Start Date [...] as of this encounter (statuses as of 11/15/2023) Active Problems Problem Noted Date Diagnosed Date [...] as of this encounter (statuses as of 11/15/2023) Resolved Problems Problem Noted Date Diagnosed Date Resolved Date Stage 3a chronic kidney disease 10/27/2022 01/24/2023 Overview: Per CKD protocol documented as of this encounter (statuses as of 11/15/2023) Immunizations Name Administration Dates Next Due COVID-19 mRNA, LNP-s, No Pre serve, 2-Dose Series (Pfizer) 01/09/2022,06/28/2021,11/10/2020,10/21 Pneumococcal Conjugate Vacc, 13 Valent (Prevnar) [...] on file documented as of this encounter Functional Status Functional Status Response [...] No 05/23/2022 documented as of this encounter Miscellaneous Notes * Telephone Encounter - Madai Hull RN - 10/09/2023 10:46 AM EST Called patient, he verbalized understanding. * Telephone Encounter - Madai Hull RN - 10/08/2023 4:[address] Perez, patient to follow up with PCP. * Telephone Encounter - Madai Hull RN - 10/08/2023 1:[address] Perez's routing comment: "He can try" Called patient- he did doxycycline, joint pain is ok now (not gone completely, but he has arthritisso doesn't expect it to go away). Patient states that he has pain in groin/ into testicles. Started about 1-1.5 weeks ago. States it is a little more than a dull aching pain. Worse when he gets up and walks. Denies swelling/ redness.Has not had this pain previously. No trauma/ exertion that he feels would cause this. Dr Perez: patient is concerned that this could be related to his cancer- please advise. Thanks! * Telephone Encounter - Madai Hull RN - 10/04/2023 3:59 PM EST Per [facility]odate: "Title Immune Checkpoint Inhibitors (Anti-PD-1, -PD-L1, and -CTLA4 Therapies) / Antibiotics Risk Rating C: Monitor therapy Summary Antibiotics may diminish the therapeutic effect of Immune Checkpoint Inhibitors (Anti-PD-1,-PD-L1, and -CTLA4 Therapies). Severity Major Reliability Rating Fair: Existing data/reports are inconsistent Patient Management Be aware that several observational studies have demonstrated decreased progression free survival, overall survival, and tumor response in patients treated with immune checkpoint inhibitors who received antibiotics in close proximity to or during immune checkpoint inhibitor therapy." Patient received C1D1 keytruda 09/24/23. Called patient- he has chronic lyme, when it flairs up he has joint pain all over his body. He thentakes doxycycline for 2-3 days and this typically resolves it. He has been having joint pain all over his body for the last few days. Reviewed above information on interaction with patient. Patient asked if keytruda can also cause joint pain- advised him that this could be a rare immune mediated side effect. Patient would like to try doxycycline for 2 days to see if this helps joint pain. He is going to start it tonight as he is very uncomfortable, but would like Dr Perez's input on if it would be ok to continue for 2-3 days since he is in between cycles of keytruda. Dr Perez: is it ok for patient to take doxycycline for 2-3 days to see if joint pain is due to chronic lyme? * Telephone Encounter - Rex Fu OSA - 10/04/2023 12:30 PM EST Pt would like to know if it is safe for scott to take Doxycycline while he is on immune therapy. Please call pts home to advise. documented in this encounter Plan of Treatment Upcoming Encounters Date Type Department Care Team (Late st Contact Info) Description 11/23/2023 10:15 AM EST Office Visit Family Medicine, [facility] [address] [facility] [address] [place] [phone] Elissa Carrero MD 7095 [facility] [address] [facility] [address] 11/26/2023 12:30 PM EDT Laboratory Laboratory [facility] [place] [address] [place] [phone] Tammy, Lab Scenery [address] [place] [address] 11/26/2023 1:30 PM EDT Hem/Onc Treatment Hematology/Oncology Treatment, [place] [address] [place] [phone] Tammy, Chair 8 Hem Onc Scenery [address] [place] [address] 12/11/2023 9:45 AM EDT Imaging Radiology [facility] 1st Floor, [place] [address] [place] [address] 12/17/2023 8:30 AM EDT Laboratory Laboratory [facility] [place] [address] [place] [phone] Tammy, Lab Scenery [address] [place] [address] 12/17/2023 9:00 AM EDT Office Visit Hematology/Oncology [facility] [address] [facility] [place] [phone] Romel Perez MD [address] [facility] [place] [address] 12/17/2023 9:30 AM EDT Hem/Onc Treatment Hematology/Oncology Treatment, [place] 200 [facility], [place] [phone] Tammy, Chair 8 Hem Onc [address] [place] [address] 05/13/2024 2:00 PM EDT Office Visit Nephrology, [facility] [address] [facility] [place], [place] [address] Geraldo Sheehan MD [address] [facility] [place] [address] Health Maintenance Due Date Last Done Comments Depression Screening 1957 Albumin/Creatinine Ratio 02/07/1964 CKD PHOS USE SMARTSET 21045 02/07/1963 Zoster Vaccines (2 of 3) 10/29/2013 09/03/2013 COVID-19 Vaccine ( - season) 2023 01/09/2022, 06/28/2021, 11/10/2020, Additional history exists GFR 05/05/2024 11/05/2023, 09/18, 09/24/2023, Additional history exists CKD HGB USE SMARTSET 70014 11/05/202411/05, 11/05/2023, 10/15/2023, Additional history exists DTaP,Tdap,and [...] this encounter Medical Devices Implanted Type Area Payroll And Benefits Manager Device Identifier Shelf Expiration Date Model / Serial / Lot Port Implant W/8f Poly Cath - [id number] Implanted:Qty : 1 on 09/21/2023 by Phill Patrick MD at [facility] Right: Chest CR BARD : PERIPHERAL VASCULAR [id number] 08/16/2024 [id number] / / [id number] documented as of this encounter Advance Directives Latest Code Status [...] the patient have Health Care Power of Fruit Harvester Machine Operator? Yes, not currently available Code Status History [...] the patient have Health Care Power of Fruit Harvester Machine Operator? No Care Teams Vice President Of Marketing Relationship Specialty Start Date End Date Elissa Carrero MD [address] [place] [address] PCP - General Family Medicine 4/14/23 documented as of this encounter
--- OUTSIDE RECORDS SUMMARY | 2023-11-20 05:46 | External Medical Summary ---
Author Name Unknown Address Unknown Organization K09:[facility] [place] [address] Laboratory Report Ordering Provider Test Date Status PENELOPE WALLACE 11/05/2023 09:55:09 Final Observation Date Value Abnormality Reference (Units ) Status WBC, Total 11/05/2023 09:55:09 7.72 4.00-10.8 0 (K/uL) Final RBC 11/05/2023 09:55:09 4.34 4.50-5.25 (M/uL) Final Hemoglobin 11/05/2023 09:55:09 13.2 Below low normal 14 .0-16.8 (g/dL) Final HCT 11/05/2023 09:55:09 41.5 40.0-48.4 (%) Final MCV 11/05/2023 09:55:09 95.6 82.0-99.5 (fL) Final MCH 11/05/2023 09:55:09 30.4 27.0-34.0 (pg) Final MCHC 11/05/2023 09:55:09 31.8 32.0-36.0 (g/dL) Final RDW 11/05/2023 09:55:09 13.2 11.5-15.5 (%) Final Platelets 11/05/2023 09:55:09 233 140-400 (K /uL) Final MPV 11/05/2023 09:55:09 10.6 6.6-11.1 ( fL) Final Performing Location [facility] [place] [address]
--- OUTSIDE RECORDS SUMMARY | 2023-11-20 05:46 | External Medical Summary | Summary of Care ---
Author Name Unknown Organization [facility] Address [address] [facility] [place] [address] Phone [phone] Care Team Providers Care Textile Artist Name Role Phone Elissa Carrero MD Primary Care Provider Reason for Referral * Precert (Within 24 hrs (call dept; emergent)) - Authorized Specialty Diagnoses / Procedures Referred By Contac t Referred To Contact Radiology Diagnoses Cancer of left renal pelvis (HCC) Procedures PET CT SKULL BASE TO MID-THIGH Dipti Guaman CRNP [address] [place] [address] Referral ID Status Reason Start Date Expiration Date V isits Requested Visits Authorized [id number] Authorized 12/10/2023 999 999 Reason for Visit * Reason Comments Re-Check Chemo recheck Encounter Details Date Type Department Care Team (Late st Contact Info) Description 10/15/2023 11:30 AM EST Office Visit Hematology/On[facility] [place] [address] [facility] [address] Dipti Guaman CRNP [address] [place] [address] Cancer of left renal pelvis (HCC)*; Encounter for antineoplastic immunotherapy Allergies Active Allergy Reactions Criticality Noted Date Comments Lisinopril 07/04/2019 Other reaction(s): Angioedema Piroxicam 10/25/2022 Other reaction(s): muscle spasms documented as of this encounter (statuses as of 10/17/2023) Medications Medication Sig Dispensed Refills Start Date [...] Pain, Moderate. 90 Tablet 2 11/03/2022 Active Doxazosin Mesylate 4 MG Oral Tablet (Cardura) TAKE 1 TABLET DAILY 90 Tablet 3 11/06/2022 Active Lidocaine 5 % External Patch (Lidoderm) [...] needed (fatigue). 90 Tablet 1 10/10/2023 Active documented as of this encounter (statuses as of 10/17/2023) Active Problems Problem Noted Date Diagnosed Date [...] as of this encounter (statuses as of 10/17/2023) Resolved Problems Problem Noted Date Diagnosed Date Resolved Date Stage 3a chronic kidney disease 10/27/2022 01/24/2023 Overview: Per CKD protocol documented as of this encounter (statuses as of 10/17/2023) Immunizations Name Administration Dates Next Due COVID-19 mRNA, LNP-s, No Pre serve, 2-Dose Series (Synchroneuron) 01/09/2022,06/28/2021,11/10/2020,10/21 Pneumococcal Conjugate Vacc, 13 Valent (Prevnar) [...] Date Smoking Tobacco: Former Cigarettes 3 33 Q uit: 09/17/2001 Smokeless Tobacco: Never Alcohol Use Standard [...] Sign Reading Time Taken Comments Blood Pressure 106/67 10/15/2023 11:29 AM EST Pulse 60 10/15/2023 11:29 AM EST Temperature 36.4 C (97.5 F) 10/15/2023 1 1:29 AM EST Respiratory Rate 18 10/15/2023 11:2 9 AM EST Oxygen Saturation 94% 10/15/2023 11: 29 AM EST Inhaled Oxygen Concentration - - Weight 74.3 kg (163 lb 14.4 oz) 024 11:29 AM EST Height - - Body Mass Index 28.12 10/10/2023 3:16 PM EST documented in this [...] No 05/23/2022 documented as of this encounter Progress Notes * Deniz Dipti BillingsREHAN perez - 10/15/2023 11:40 AM EST Hematology/Oncology Outpatient Clinic note Rolf Munoz [address] [place] [address] Name: Drew Rosen Date: 10/15/2023 CHIEF COMPLAINT: Drew Rosen is a 78 year old male patient of Dr. Urena Ana here today for f/u visit today. From Patient chart confirmed with patient. HEMATOLOGY/ONCOLOGY DIAGNOSIS: Renal pelvis transitional cell malignant neoplasm, left Cancer Staging pT3 NX DATE OF DIAGNOSIS: 04/04/22 TREATMENT HISTORY: Robotic laparoscopic nephrectomy with total ureterectomy, bladder cuff 05/23/22 Gemzar D1, D8 and Carboplatin D1 every 21 days x 4 cycles (07/05/22 - 09/28/22) CURRENT TREATMENT: Pembrolizumab 200 mg q21 Days Until Progression, Unacceptable Toxicity, or up to 24 Months ONCOLOGY HISTORY: Patient with a past medical history significant for hypertension, hyperlipidemia, GERD, BPH, bladder cancer and chronic back pain was recently found to have abnormality on the CT urogram and filling defect of the left renal pelvis. Patient had cystoscopy, left ureteroscopy with possible ablation, left retrograde pyelogram, left ureteral stent placement on 04/04/[address] Alvarado. 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 A. Left renal pelvis, mass, biopsy: High-grade urothelial carcinoma, with laminal propria invasion No muscularis propria identified. Patient history significant for the high-grade urothelial carcinoma involving the bladder status post resection followed by the treatment with BCG twice in 2017. He underwent robotic laparoscopic nephrectomy with total ureterectomy, bladder cuff 05/23/22 by . Histopathology is consistent with high-grade urothelial carcinoma involving the ureter and renal pelvis, invasive into periureteral adipose tissue and renal pelvis adipose tissue with lymphovascular invasion. Margins of resections are negative. A. Left kidney, ureter, and bladder cuff, left radical nephroureterectomy: High grade urothelial carcinoma, involving ureter and renal pelvis, invasive into periureteral adipose tissue and renal pelvic adipose tissue, with lymphovascular invasion, see synoptic summary Ureteral/bladder cuff margin and vascular margins, negative for tumor Comment Multiple deeper levels have been examined. Immunohistochemical stains were performed with adequate controls on block A1. CK17 shows basal celllayer urothelium. CD44 highlights urothelium while CK20 is essentially negative. The morphology and immunohistochemical profile support the above diagnosis Tumor Site: Ureter Renal pelvis Tumor Size: Greatest dimension in Centimeters (cm): 7.4 cm Additional Dimension in Centimeters (cm): 1.0cm Additional Dimension in Centimeters (cm): 0.5cm Histologic Type: Urothelial carcinoma, invasive Histologic Grade: High-grade Tumor Extent: Invades beyond muscularis into peripelvic fat or renal parenchyma Lymphovascular Invasion: Present Margins: All margins negative for invasive carcinoma Regional Lymph Nodes: Not applicable (no regional lymph nodes submitted or found) pT Category: pT3: For renal pelvis only-Tumor invades beyond muscularis into peripelvic fat or intothe renal parenchyma or For ureter only-Tumor invades beyond muscularis into periureteric fat Patient is now referred for adjuvant chemotherapy. Patient is complaining of chronic back pain. He denies any headache dizziness, blurred vision, chest palpitation abdominal pain or distention, bleeding, bruising, nausea vomiting, fever, night sweats, hematuria, hematochezia. He quit smoking about 20 years ago. He used to smoke 3 packs per day for about 20 years. Drinks alcohol socially. Family history is negative for any hematology/oncology problem Patient has very aggressive disease and as per recommendation from NCCN guidelines he can benefit with adjuvant chemotherapy. He can benefit with combination of gemcitabine and carboplatin (because of his age, other comorbid condition and has only one kidney). Discussed with patient and in detail about the diagnosis and prognosis and reviewed all the available blood tests, CT scan finding, pathology finding with them. Discussed with them about the benefit, risk, side effects, toxicity and the rationale of adjuvant chemotherapy. After detailed discussion he agreed to proceed with treatment and signed the consent form. Because of the locally advanced aggressive disease also also get baseline PET scan to rule out any other metastasis. Interval History: Follow-up CT scan done on 08/31/2023 unfortunately shows disease progression with worsening nodulardensity left nephrectomy bed representing local recurrence and worsening lymphadenopathy representing metastases with indeterminate right lung nodule. PDL1 expression is more than 5%. Result: Antibody Clone Block IC Intensity Interpretation (see NOTE) PD-L1 (SP142) A1 5-8% 2-3+ ?5% IC % IC=Tumor-Infiltrating Immune Cells (the proportion of tumor area occupied by PD-L1 expressing tumor-infiltrating immune cells of any intensity). NOTE: ?5% IC is associated with increased objective response rate in a He would cystoscopy done on 08/29/2023 and was negative. Urine cytology is also negative. Discussed with the patient in detail about diagnosis and reviewed all the available blood tests, PET scan finding and CT scan finding with them. Discussed with him about the diagnosis and prognosis. He can benefit with the immunotherapy Keytruda. Discussed with him about the benefit, risk, side effects and toxicity of the treatment. After detailed discussion he agreed to proceed with treatment and signed the consent form. HISTORY OF PRESENT ILLNESS: Drew Rosen is a 78 year old male with a history as outlined above. Currently here for f/u visit today and consideration for C2D1 of treatment. Patient continues to have pain in his right groin. Comes and goes. Following with palliative care. Taking tramadol and gabapentin as needed which is helping. Has been going on the last couple weeks. Happens when he twists or crosses his leg. When it flairs it can last for hours. Is walking on his treadmill. No swelling to the area. Is urinating well. Bowels are moving normally with fiber pills. Denies significant SOB. Rarely coughs. Past Medical History: Diagnosis Date Bladder cancer (HCC) 04/18/2017 Former smoker 3ppd for 33 years GERD (gastroesophageal reflux disease) Hyperlipidemia Hypertension Vascular disease Past Surgical History: Procedure Laterality Date APPENDECTOMY W/OTHER PROCEDURE BLADDER INSTILLATION, ANTICARCINOGENIC N/A 04/10/2018 BLADDER INSTILLATION OF ANTICARCINOGENIC AGENT performed by Dean Altamirano MD at OR [facility] [place] BLADDER INSTILLATION, ANTICARCINOGENIC N/A 07/11/2018 BLADDER INSTILLATION OF ANTICARCINOGENIC AGENT performed by Dean Altamirano MD at OR [facility] [place] CYSTO/URETERO W/LITHOTRIPSY Left 09/06/2018 CYSTOURETHROSCOPY URETEROSCOPY WITH LITHOTRIPSY AND STENT INSERTION performed by Tawana Munoz MD at[facility] [place] CYSTOSCOPY N/A 01/17/2023 CYSTOURETHROSCOPY performed by Nabeel Alvarado MD at OR [facility] [place] CYSTOSCOPY N/A 08/29/2023 CYSTOURETHROSCOPY performed by Nabeel Alvarado MD at OR [facility] [place] [facility] CYSTOSCOPY/INSERTION OF STENT Left 11/13/2017 CYSTOURETHROSCOPY WITH INSERTION URETERAL STENT performed by Dean Altamirano MD at OR [facility] [place] CYSTOSCOPY/INSERTION OF STENT Left 04/10/2018 CYSTOURETHROSCOPY WITH INSERTION URETERAL STENT performed by Dean Altamirano MD at OR [facility] [place] CYSTOSCOPY/INSERTION OF STENT Left 07/11/2018 CYSTOURETHROSCOPY WITH INSERTION URETERAL STENT performed by Dean Altamirano MD at OR [facility] [place] CYSTOSCOPY/INSERTION OF STENT Left 05/23/2022 CYSTOURETHROSCOPY WITH INSERTION URETERAL STENT performed by Nabeel Alvarado MD at OR [facility] [place] CYSTOSCOPY/TREAT LGE BLADDER TUMOR N/A 11/13/2017 CYSTOURETHROSCOPY WITH FULGURATION LARGE BLADDER TUMOR performed by Dean Altamirano MD at OR [facility] [place] CYSTOSCOPY/TREAT LGE BLADDER TUMOR N/A 04/10/2018 CYSTOURETHROSCOPY WITH FULGURATION LARGE BLADDER TUMOR performed by Dean Altamirano MD at OR [facility] [place] CYSTOSCOPY/TREAT LGE BLADDER TUMOR N/A 07/11/2018 CYSTOURETHROSCOPY WITH FULGURATION LARGE BLADDER TUMOR performed by Dean Altamirano MD at OR [facility] [place] CYSTOSCOPY/TREAT LGE BLADDER TUMOR Left 04/04/2022 CYSTOURETHROSCOPY WITH FULGURATION LARGE BLADDER TUMOR performed by Nabeel Alvarado MD at OR [facility] [place] [place] CYSTOURETERO W/BIOPSY Left 11/13/2017 CYSTOURETHROSCOPY URETEROSCOPY WITH BIOPSY AND OR FULGURATION LESION performed by Dean Altamirano MD at OR [facility] [place] CYSTOURETERO W/BIOPSY Left 09/06/2018 CYSTOURETHROSCOPY URETEROSCOPY WITH BIOPSY AND OR FULGURATION LESION performed by Tawana Munoz MD at OR [facility] [place] CYSTOURETERO W/BIOPSY Left 04/04/2022 CYSTOURETHROSCOPY URETEROSCOPY WITH BIOPSY AND OR FULGURATION LESION performed by Nabeel Alvarado MD at OR [facility] [place] FLUORO PYELOGRAM RETROGRADE Left 11/13/2017 UROGRAHY, RETROGRADE, WITH OR WITHOUT KUB performed by Dean Altamirano MD at OR [facility] [place] FLUORO PYELOGRAM RETROGRADE Left 04/10/2018 UROGRAHY, RETROGRADE, WITH OR WITHOUT KUB performed by Dean Altamirano MD at OR [facility] [place] FLUORO PYELOGRAM RETROGRADE Left 07/11/2018 UROGRAHY, RETROGRADE, WITH OR WITHOUT KUB performed by Dean Altamirano MD at OR [facility] [place] FLUORO PYELOGRAM RETROGRADE Left 09/06/2018 UROGRAHY, RETROGRADE, WITH OR WITHOUT KUB performed by Tawana Munoz MD at OR [facility] [place] INFORMATION leg stents per pt INFORMATION Left left forearm repair was done in [facility] ACC DEV;5 YRS/OLDER Right 09/21/2023 INSERT TUNNELED CENTRAL VENOUS ACCESS WITH SUBQ PORT performed by Phill Patrick MD at OR [facility] [place] REMOVE K/URETER Left 05/23/2022 ROBOTIC LAPAROSCOPIC NEPHRECTOMY WITH TOTAL URETERECTOMY performed by Nabeel Alvarado MD at OR [facility] [place] MISCELLANEOUS ORDER ([facility] ONLY) 2012 lumbar surgery . Multipel back surgeries in past REMOVAL OF KIDNEY STONE, OVER 2CM N/A 11/13/2017 PERCUTANEOUS NEPHROSTOLITHOTOMY OVER 2CM performed by Dean Altamirano MD at OR [facility] [place] [facility] REMOVAL OF PROSTATE (TURP) N/A 11/13/2017 TRANSURETHRAL RESECTION PROSTATE ELECTROSURGICAL performed by Dean Altamirano MD at OR [facility] Social History Socioeconomic History Marital status: Spouse name: Not on file Number of children: Not on file Years of education: Not on file Highest education level: Not on file Occupational History Not on file Tobacco Use Smoking status: Former Packs/day: 3.00 Years: 33.00 Additional pack years: 0.00 Total pack years: 99.00 Types: Cigarettes Quit date: 09/17/2001 Years since quittin.0 Smokeless tobacco: Never Vaping Use Vaping Use: Never used Substance and Sexual Activity Alcohol use: Yes Comment: rarely Drug use: No Sexual activity: Not on file Other Topics Concern Not on file Social History Narrative Not on file Social Determinants of Health Financial Resource Strain: Not on file Food Insecurity: Not on file Transportation Needs: Not on file Physical Activity: Not on file Stress: Not on file Social Connections: Not on file Intimate Partner Violence: Not on file Housing Stability: Not on file Review of patient's allergies indicates: Allergen Reactions Lisinopril Other reaction(s): Angioedema Piroxicam Other reaction(s): muscle spasms Current Outpatient Medications Medication Sig Dispense Refill MULTIVITAMINS PO TABS daily Diclofenac Sodium 1 % gel Place topically on the skin. omeprazole (PRILOSEC) 20 MG CPDR Take by mouth. Prochlorperazine Maleate 10 MG Oral Tablet (Compazine) Take by mouth 1 Tablet every 6 hours as needed for Nausea. 30 Tablet 0 Ondansetron HCl 8 MG Oral Tablet Take by mouth 1 Tablet every 8 hours as needed for Nausea. 30 Tablet 0 traMADol HCl 50 MG Oral Tablet (Ultram) Take 1 Tablet by mouth every 8 hours as needed for Pain, Moderate. 90 Tablet 2 Doxazosin Mesylate 4 MG Oral Tablet (Cardura) TAKE 1 TABLET DAILY 90 Tablet 3 Lidocaine 5 % External Patch (Lidoderm) Place 1 Patch topically on the skin daily as needed (pain).90 Patch 3 Atorvastatin Calcium 20 MG Oral Tablet (Lipitor) TAKE 1 TABLET AT BEDTIME 90 Tablet 3 Gabapentin 600 MG Oral Tablet (Neurontin) 2 tablets in the morning, 1 tablet in the afternoon, 2 tablets in the evening 450 Tablet 3 Famotidine 40 MG Oral Tablet (Pepcid) Take 1 Tablet by mouth at bedtime as needed for Heartburn. 90Tablet 3 Doxycycline Hyclate 100 MG Oral Tablet Take 1 Tablet by mouth in the morning and 1 Tablet before bedtime. Patient takes this "as needed" for lyme flare ups- starting it 09/06/23. Lidocaine-Prilocaine 2.5-2.5 % External Cream (Emla) APPLY TO SKIN OVER MEDIPORT & COVER 1HR PRIOR TO ACCESSING. 30 g 1 Aspirin 81 MG Oral Capsule Take 1 Tablet by mouth every evening. Modafinil 100 MG Oral Tablet (Provigil) Take 1 Tablet by mouth daily as needed (fatigue). 90 Tablet1 No current facility-administered medications for this visit. REVIEW OF SYSTEMS: See HPI - otherwise negative OBJECTIVE: Filed Vitals: 10/15/23 1129 BP: 106/67 Pulse: 60 Resp: 18 Temp: 36.4 C (97.5 F) TempSrc: Tympanic SpO2: 94% Weight: 74.3 kg (163 lb 14.4 oz) Wt Readings from Last 5 Encounters: 10/15/23 74.3 kg (163 lb 14.4 oz) 10/10/23 74.5 kg (164 lb 3.2 oz) 10/02/23 78.5 kg (173 lb) 09/05/23 75.7 kg (166 lb 12.8 oz) 08/29/23 73.5 kg (162 lb 1.6 oz) PHYSICAL EXAM: ECOG: Performance Status 1 = 80-90% Symptoms but nearly ambulatory General Appearance: No acute distress Lymph Nodes: Normal - No palpable lymph nodes in the neck, supraclavicular or inguinal areas. +tender to palpation in right inguinal area - no abnormalities noted Lungs/Thorax: Normal - Clear to auscultation Heart: Normal - Regular rate and rhythm, normal S1, S2, no appreciable murmurs Pulses/Extremities: Normal - 2+ throughout and symmetrical, no edema Abdomen: Normal - Soft, nontender, bowel sounds present, no appreciable hepatosplenomegaly, no palpable masses Neurologic: alert and oriented x 4, ambulates with cane LABS: Results for orders placed or performed in visit on 10/15/23 COMPREHENSIVE METABOLIC PANEL Result Value Ref Range BUN 28 (H) 6 - 20 mg/dL Creatinine 2.0 (H) 0.6 - 1.2 mg/dL Estimated Glomerular Filtration Rate 34 (L) >=60 mL/min Sodium 140 135 - 146 mmol/L Potassium 4.6 3.5 - 5.1 mmol/L Chloride 103 98 - 107 mmol/L CO2 25 22 - 32 mmol/L Anion Gap 12 7 - 15 mmol/L Glucose 104 70 - 120 mg/dL Albumin 4.6 3.8 - 5.0 g/dL AST 18 10 - 50 U/L Alkaline Phosphatase 79 35 - 130 U/L Bilirubin, Total 0.3 <=1.2 mg/dL Calcium 9.7 8.4 - 10.2 mg/dL Protein 7.3 6.0 - 8.3 g/dL ALT 11 10 - 50 U/L CBC Result Value Ref Range WBC 8.15 4.00 - 10.80 K/uL RBC 4.58 4.50 - 5.25 M/uL HGB 14.4 14.0 - 16.8 g/dL HCT 44.2 40.0 - 48.4 % MCV 96.5 82.0 - 99.5 fL MCH 31.4 27.0 - 34.0 pg MCHC 32.6 32.0 - 36.0 g/dL RDW 13.3 11.5 - 15.5 % PLT 215 140 - 400 K/uL MPV 10.5 6.6 - 11.1 fL DIFFERENTIAL, AUTOMATED Result Value Ref Range WBC 8.15 4.00 - 10.80 K/uL Neutrophils % 63.6 40.0 - 75.0 % Lymphocytes % 21.2 18.0 - 42.0 % Monocytes % 10.8 1.0 - 11.0 % Eosinophils % 3.9 0.0 - 6.0 % Basophils % 0.5 0.0 - 2.0 % Absolute Neutrophils 5.18 1.80 - 7.70 K/uL Absolute Lymphocytes 1.73 1.00 - 4.80 K/ul Absolute Monocytes 0.88 0.00 - 1.10 K/uL Absolute Eosinophils 0.32 0.00 - 0.70 K/uL Absolute Basophils 0.04 0.00 - 0.20 K/uL IMPRESSION/PLAN: Renal pelvis transitional cell malignant neoplasm, left Encounter for immunotherapy Under observation since September 2022 Follow-up CT scan done on 08/31/2023 unfortunately shows disease progression with worsening nodulardensity left nephrectomy bed representing local recurrence and worsening lymphadenopathy representing metastases with indeterminate right lung nodule. Decided to start patient on Keytruda 200 mg every 21 days. Tolerating well. Plan to continue until disease progression, toxicity or up to 24 months. Lab results reviewed: Renal function stable Ok for treatment today as scheduled Follow up with nephrology and Urology as scheduled Order placed for restaging PET/CT to be completed s/p C4. Continue to follow with palliative care for pain management. RTC in 9 weeks with physician for chemo return/scan review REHAN Mendes documented in this encounter Nursing Notes * Libia Jean Baptiset LPN - 10/15/2023 11:35 AM EST Patient identifed by name and birthdate Do you have any concerns about pain management for today's visit? No Living Will or Advance Directive for Health Care as noted on the problem list. [facility] is a way you can talk to your provider on line through e-mail. Would you like to sign up? I can activate it for you? NO Filed Vitals: 10/15/23 1129 BP: 106/67 Pulse: 60 Resp: 18 Temp: 36.4 C (97.5 F) TempSrc: Tympanic SpO2: 94% Weight: 74.3 kg (163 lb 14.4 oz) Patient was instructed to not get up on the exam table/exam chair until directed and assisted by their provider; patient is to remain seated in the chair/ wheelchair/ exam table/ exam chair for fall prevention and safety reasons. Patient is aware to have assistance to step down off exam table/exam chair with personnel. Patient voiced full comprehension of instructions. Pt is in pain in right groin. Rates 4/10 right now but can be a 10/10 at times. documented in this encounter Plan of Treatment Upcoming Encounters Date Type Department Care Team (Late st Contact Info) Description 11/05/2023 10:00 AM EST Laboratory Laboratory [facility] [place] [address] [place] [id number] [address], Lab Scenery [address] [facility] [place] [address] 11/05/2023 11:00 AM EST Hem/Onc Treatment Hematology/Oncology Treatment, [place] [address] [place] [address] [address], Chair 3 Hem Onc Scenery [address] [place] [address] 11/23/2023 10:15 AM EST Office Visit Family Medicine, [facility] [address] [facility] [address] [place] [phone] Elissa Carrero MD [address] [facility] [address] [place] [address] 11/26/2023 12:30 PM EDT Laboratory Laboratory [facility] Tammy [place] [address] [place] [phone] Tammy, Lab Scenery [address] [place] [address] 11/26/2023 1:30 PM EDT Hem/Onc Treatment Hematology/Oncology Treatment, [place] [address] [place] [address] Tammy, Chair 8 Hem Onc Scenery [address] [place] [address] 12/11/2023 9:45 AM EDT Imaging Radiology [address], [place] [facility] [address] 12/17/2023 8:30 AM EDT [facility] [place] [address] [place] [phone] Tammy, Lab Scenery [address] [place] [address] 12/17/2023 9:00 AM EDT Office Visit Hematology/Oncology Sergio Tammy [place] [address] [place] [address] Romel Perez MD [address] [place] [address] 12/17/2023 9:30 AM EDT Hem/Onc Treatment Hematology/Oncology Treatment, [place] [address] [place] [address] Tammy, Chair [address] Hem Onc Scenery [address] [place] [address] 05/13/2024 2:00 PM EDT Office Visit NephrologyGianluca [address] [place] [address] Geraldo Sheehan MD [address] [facility] [place] [address] Scheduled Orders Name Type Priority Associated Diagnoses Orde r Schedule PET CT SKULL BASE TO MID-THIGH Medical Imaging STAT Cancer of left renal pelvis (HCC) Expected: 12/10/2023 (Approximate), Expires: 04/14/2024 Health Maintenance Due Date Last Done Comments Depression Screening 1957 Albumin/Creatinine Ratio 02/07/1964 CKD PHOS USE SMARTSET 66070 02[birth year]07/1963 Zoster Vaccines (2 of 3) 10/29/2013 09/03/2013 COVID-19 Vaccine ( season) 2023 01/09/2022, 06/28/2021, 11/10/2020, Additional history exists GFR 04/14/2024 10/15/2023, 04/2024, 08/15/2023, Additional history exists CKD HGB USE SMARTSET 86772 10/15/202410/15, 10/15/2023, 09/24/2023, Additional history exists DTaP,Tdap,and Td Vaccines (3 [...] this encounter Medical Devices Implanted Type Area Retirement Assistant Device Identifier Shelf Expiration Date Model / Serial / Lot Port Implant W/8f Poly Cath - [id number] Implanted:Qty : 1 on 09/21/2023 by Phill Patrick MD at OR [facility] Right: Chest CR BARD : PERIPHERAL VASCULAR [id number] 08/16/2024 [id number] / / [id number] documented as of this encounter Visit Diagnoses Diagnosis Cancer of left renal pelvis (HCC)- Primary Encounter for antineoplastic immunotherapy documented in this encounter Advance Directives Latest [...] the patient have Health Care Power of Web Administrator? Yes, not currently available Code Status History [...] the patient have Health Care Power of Web Administrator? No Care Teams Textile Artist Relationship Specialty Start Date End Date Elissa Carrero MD [address] [place] [address] PCP - General Family Medicine 12/29/22 documented as of this encounter
--- OUTSIDE RECORDS SUMMARY | 2023-11-20 05:46 | External Medical Summary | Summary of Care ---
Author Name Unknown Organization [facility] Address [address] [place] [address] Phone [phone] Care Team Providers Care Hand Cooper Helper Name Role Phone Elissa Carrero MD Primary Care Provider Reason for Visit * Reason Comments Treatment * Episode Based Medications (Routine) - Authorized Specialty Diagnoses / Procedures Referred By Carolina t Referred To Contact Diagnoses Cancer of left renal pelvis (HCC) Encounter for antineoplastic chemotherapy Malignant neoplasm of overlapping sites of bladder (HCC) Procedures IA INJ PEMBROLIZUMAB Romel Perez MD [address] [place] [id number] Anc Hem/Onc [address] [address] Referral ID Status Reason Start Date Expiration Date V isits Requested Visits Authorized [id number] Authorized 09/11/2023 08/17/2099 999 999 Encounter Details Date Type Department Care Team (Latest Contact Info) Description 09/24/2023 2:00 PM EST Hem/Onc Treatment Hematology/Oncolog y Treatment, [address] [address] Cancer of left renal pelvis (HCC)*; Encounter for antineoplastic chemotherapy; Malignant neoplasm of overlapping sites of bladder (HCC) Allergies Active Allergy Reactions Criticality Noted Date Comments Lisinopril 07/04/2019 Other reaction(s): Angioedema Piroxicam 10/25/2022 Other reaction(s): muscle spasms documented as of this encounter (statuses as of 11/13/2023) Medications Medication Sig Dispensed Refills Start Date [...] as of this encounter (statuses as of 11/13/2023) Active Problems Problem Noted Date Diagnosed Date [...] as of this encounter (statuses as of 11/13/2023) Resolved Problems Problem Noted Date Diagnosed Date Resolved Date Stage 3a chronic kidney disease 10/27/2022 01/24/2023 Overview: Per CKD protocol documented as of this encounter (statuses as of 11/13/2023) Immunizations Name Administration Dates Next Due COVID-19 mRNA, LNP-s, No Pre serve, 2-Dose Series ([employer]) 01/09/2022,06/28/2021,11/10/2020,10/21 Pneumococcal Conjugate Vacc, 13 Valent (Prevnar) [...] 10:15 AM EST Office Visit Family Medicine, [facility] 7095 [facility] [address] [place] [address] Elissa Carrero MD 7095 [facility] [place] [address] [place] [address] 11/26/2023 12:30 PM EDT Laboratory Laboratory [facility] [place] 200 [facility] [place] [phone] Tammy, Lab Scenery 200 [facility] [place] [address] 11/26/2023 1:30 PM EDT Hem/Onc Treatment Hematology/Oncology Treatment, [place] [address] [place] [phone] Tammy, Chair 8 Hem Onc Scenery 200 [facility] [address] [place], [place] [address] 12/11/2023 9:45 AM EDT Imaging Radiology [address], [place] [facility] [place] [address] 12/17/2023 8:30 AM EDT Laboratory Laboratory [facility] [place] [address] [place] [phone] Tammy, Lab [facility] [address] [facility] [place] [address] 12/17/2023 9:00 AM EDT Office Visit Hematology/Oncology [facility] [place] [address] [place] [phone] Romel Perez MD [address] [place] [address] 12/17/2023 9:30 AM EDT Hem/Onc Treatment Hematology/Oncology Treatment, [place] [address] [place], [place] [phone] Tammy, Chair 8 Hem Onc [facility] 200 [facility] [place], [place] [address] 05/13/2024 2:00 PM EDT Office Visit Nephrology, [facility] [address] [place], [place] [address] Geraldo Sheehan MD 200 [facility] [place], [place] [address] Health Maintenance Due Date Last Done Comments Depression Screening 1957 Albumin/Creatinine Ratio 02/07/1964 CKD PHOS USE SMARTSET 13198 02/07/1964 Zoster Vaccines (2 of 3) 10/29/2013 09/03/2013 COVID-19 Vaccine ( season) 2023 01/09/2022, 06/28/2021, 11/10/2020, Additional history exists GFR 05/05/2024 11/05/2023, 09/18, 09/24/2023, Additional history exists CKD HGB USE SMARTSET 24006 11/05/202411/05, 11/05/2023, 10/15/2023, Additional history exists DTaP,Tdap,and [...] this encounter Medical Devices Implanted Type Area Special Agent [employer] Device Identifier Shelf Expiration Date Model / Serial / Lot Port Implant W/8f Poly Cath - [id number] Implanted:Qty : 1 on 09/21/2023 by Phill Patrick MD at OR [facility] Right: Chest CR BARD : PERIPHERAL VASCULAR [id number] 08/16/2024 [id number] / / [id number] documented as of this encounter Visit Diagnoses [...] the patient have Health Care Power of Hazard Mitigation Officer? Yes, not currently available Code Status History [...] the patient have Health Care Power of Hazard Mitigation Officer? No Care Teams Hand Cooper Helper Relationship Specialty Start Date End Date Elissa Carrero MD [address] [address] PCP - General Family Medicine 12/29/22 documented as of this encounter
--- OUTSIDE RECORDS SUMMARY | 2023-11-20 05:46 | External Medical Summary ---
Author Name Unknown Address Unknown Organization K09:[facility] - [address] [place] [address] Laboratory Report Ordering Provider Test Date Status PENELOPE WALLACE 11/05/2023 09:55:09 Final Observation Date Value Abnormality Reference (Units ) Status BUN 11/05/2023 09:55:09 31 Above high normal 6-20 (mg/dL) Final Creatinine 11/05/2023 09:55:09 1.7 Above high normal 0.6-1.2 (mg/dL) Final Glomerular filtration rate/1.73 sq M.predicted [Volume Rate/Area] in Serum, Plasma or Blood by Creatinine-based formula (CKD-EPI) 11/05/2023 09:55:09 40 Below low normal >=60 (mL/min) Final eGFR is calculated based on the CKD-EPI 2020 equation SODIUM 11/05/2023 09:55:09 139 135-146 (m mol/L) Final Potassium 11/05/2023 09:55:09 4.5 3.5-5.1 (m mol/L) Final Cl 11/05/2023 09:55:09 104 98-107 (mm ol/L) Final CO2 11/05/2023 09:55:09 23 22-32 (mmo l/L) Final Anion gap 11/05/2023 09:55:09 12 7-15 (mmol /L) Final Glucose 11/05/2023 09:55:09 130 Above high normal 70 -120 (mg/dL) Final Albumin 11/05/2023 09:55:09 4.2 3.8-5.0 (g /dL) Final AST (Aspartate aminotransferase) 11/05/2023 09:55:09 19 10-50 (U/L) Fin al Alk Phos 11/05/2023 09:55:09 83 35-130 (U/ L) Final Bilirubin, Total 11/05/2023 09:55:09 0.2 <=1 .2 (mg/dL) Final Calcium 11/05/2023 09:55:09 9.2 8.4-10.2 ( mg/dL) Final Protein 11/05/2023 09:55:09 6.7 6.0-8.3 (g /dL) Final ALT (Alanine aminotransferase) 11/05/2023 09:55:09 7 Below low normal 10-50 (U/L) Final Performing Location [facility] [address] [place] [address]
--- OUTSIDE RECORDS SUMMARY | 2023-11-20 05:46 | External Medical Summary | Summary of Care ---
Author Name Unknown Organization [facility] Address [address] [place] [address] Phone [phone] Care Team Providers Care Certified Shorthand Reporter Name Role Phone Elissa Carrero MD Primary Care Provider Reason for Visit * Reason Comments Outpatient Testing Encounter Details Date Type Department Care Team (Late st Contact Info) Description 11/05/2023 10:00 AM EST Laboratory Laboratory [facility] [address] [place] [phone] [facility] [address] [place] [address] Cancer of left renal pelvis (HCC); Encounter for long-term (current) use of medications Allergies Active Allergy Reactions Criticality Noted Date Comments Lisinopril 07/04/2019 Other reaction(s): Angioedema Piroxicam 10/25/2022 Other reaction(s): muscle spasms documented as of this encounter (statuses as of 11/05/2023) Medications Medication Sig Dispensed Refills Start Date [...] as of this encounter (statuses as of 11/05/2023) Active Problems Problem Noted Date Diagnosed Date [...] as of this encounter (statuses as of 11/05/2023) Resolved Problems Problem Noted Date Diagnosed Date Resolved Date Stage 3a chronic kidney disease 10/27/2022 01/24/2023 Overview: Per CKD protocol documented as of this encounter (statuses as of 11/05/2023) Immunizations Name Administration Dates Next Due COVID-19 mRNA, LNP-s, No Pre serve, 2-Dose Series ([employer]) 01/09/2022,06/28/2021,11/10/2020,10/21 Pneumococcal Conjugate Vacc, 13 Valent (Prevnar) [...] No 05/23/2022 documented as of this encounter Plan of Treatment Upcoming Encounters Date Type Department Care Team (Late st Contact Info) Description 11/05/2023 11:00 AM EST Hem/Onc Treatment Hematology/Oncology Treatment, [place] 200 [facility] [address] Tammy, Chair [address] Hem On[address] [place] [address] Arrived 11/23/2023 10:15 AM EST Office Visit Family Medicine, [facility] 7095 [facility] [place] [address] [place] [phone] Elissa Carrero MD 7095 [facility] [place] [address] [place] [address] 11/26/2023 12:30 PM EDT Laboratory Laboratory [facility] [place] 200 [facility] [place] [phone] [place], Lab Scenery [address] [place], [place] [address] 11/26/2023 1:30 PM EDT Hem/Onc Treatment Hematology/Oncology Treatment, [place] 200 [facility], [place] [address] Tammy, Chair 8 Hem Onc Scenery [address] [place] [address] 12/11/2023 9:45 AM EDT Imaging Radiology [facility] 1st [facility], [place] [facility] [place] [phone] 12/17/2023 8:30 AM EDT Laboratory Laboratory [facility] [place] [address] [place] [phone] Tammy, Lab Scenery 200 [facility] [place] [address] 12/17/2023 9:00 AM EDT Office Visit Hematology/Oncology [facility] [place] [address] [place] [address] Romel Perez MD [address] [place] [address] 12/17/2023 9:30 AM EDT Hem/Onc Treatment Hematology/Oncology Treatment, [place] 200 [facility], [place] [address] Tammy, Chair 8 Hem Onc Scenery [address] [place], [place] [address] 05/13/2024 2:00 PM EDT Office Visit Nephrology, [facility] [address] [place], [place] [address] Geraldo Sheehan MD [address] [place] [address] Pending Results Name Type Priority Associated Diagnoses Date /Time TSH WITH FREE T4 IF INDICATED Lab STAT Cancer of left renal pelvis (HCC) Encounter for long-term (current) use of medications 11/05/2023 9:55 AM EST Health Maintenance Due Date Last Done Comments Depression Screening 1957 Albumin/Creatinine Ratio 02/07/1964 CKD PHOS USE SMARTSET 05446 02/07/1964 Zoster Vaccines (2 of 3) 10/29/2013 09/03/2013 COVID-19 Vaccine ( season) 2023 01/09/2022, 06/28/2021, 11/10/2020, Additional history exists GFR 04/14/2024 10/15/2023, 04/2024, 08/15/2023, Additional history exists CKD HGB USE SMARTSET 01168 10/15/202411/05, 11/05/2023, 10/15/2023, Additional history exists DTaP,Tdap,and Td [...] this encounter Medical Devices Implanted Type Area Topper Packer Device Identifier Shelf Expiration Date Model / Serial / Lot Port Implant W/8f Poly Cath - [id number] Implanted:Qty : 1 on 09/21/2023 by Phill Patrick MD at OR [facility] Right: Chest CR BARD : PERIPHERAL VASCULAR [id number] 08/16/2024 [id number] / / [id number] documented as of this encounter Procedures Procedure Name Priority Date/Time Associated Diagnosis Comments DIFFERENTIAL, AUTOMATED STAT 11/05/2023 9:55 AM EST Cancer of left renal pelvis (HCC) CBC STAT 11/05/2023 9:55 AM EST Cancer of left renal pelvis (HCC) CBC STAT 11/05/2023 9:55 AM EST Cancer of left renal pelvis (HCC) documented in this encounter Results * DIFFERENTIAL, AUTOMATED (11/05/2023 9:55 AM EST) WBC 7.72 4.00 - 10.80 K/uL 11/05/2023 10:02 AM EST [facility] [place] [facility]-02 Neutrophils % 67.5 40.0 - 75.0 % 11/05/2023 10:02 AM EST [facility] [place] 56-02 Lymphocytes % 18.1 18.0 - 42.0 % 11/05/2023 10:02 AM [facility] [place] 56-02 Monocytes % 10.0 1.0 - 11.0 % 11/05/2023 10:02 AM [facility] [place] 56-02 Eosinophils % 4.0 0.0 - 6.0 % 11/05/2023 10:02 AM [facility] [place] 56-02 Basophils % 0.4 0.0 - 2.0 % 11/05/2023 10:02 AM [facility] [place] 56-02 Absolute Neutrophils 5.21 1.80 - 7.70 K/uL 11/05/2023 10:02 AM [facility] [place] 56-02 Absolute Lymphocytes 1.40 1.00 - 4.80 K/ul 11/05/2023 10:02 AM [facility] [place] 56-02 Absolute Monocytes 0.77 0.00 - 1.10 K/uL 11/05/2023 10:02 AM [facility] [place] 56-02 Absolute Eosinophils 0.31 0.00 - 0.70 K/uL 11/05/2023 10:02 AM [facility] [place] 56-02 Absolute Basophils 0.03 0.00 - 0.20 K/uL 11/05/2023 10:02 AM [facility] [place] 56-02 Blood Venous blood specimen / Unknown Venipuncture / Unknown 11/05/2023 9:55 AM EST 11/05/2023 9:55 AM EST Romel Perez MD LAB BLOOD [facility] 56 [address] [place] [address] * (ABNORMAL) CBC (11/05/2023 9:55 AM EST) WBC 7.72 4.00 - 10.80 K/uL 11/05/2023 10:02 AM [facility] 56- RBC 4.34 4.50 - 5.25 M/uL 11/05/2023 10:02 AM [facility] 56- HGB 13.2(L) 14.0 - 16.8 g/dL 11/05/2023 10:02 AM [facility] 56- HCT 41.5 40.0 - 48.4 % 11/05/2023 10:02 AM [facility] 56- MCV 95.6 82.0 - 99.5 fL 11/05/2023 10:02 AM [facility] 56- MCH 30.4 27.0 - 34.0 pg 11/05/2023 10:02 AM [facility] 56-02 MCHC 31.8 32.0 - 36.0 g/dL 11/05/2023 10:02 AM [facility] 56-02 RDW 13.2 11.5 - 15.5 % 11/05/2023 10:02 AM [facility] 56-02 PLT 233 140 - 400 K/uL 11/05/2023 10:02 AM [facility] 56-02 MPV 10.6 6.6 - 11.1 fL 11/05/2023 10:02 AM [facility] 56-02 Blood Venous blood specimen / Unknown Venipuncture / Unknown 11/05/2023 9:55 AM EST 11/05/2023 9:55 AM EST Romel Perez MD LAB BLOOD [facility] 56 [address] [place] [address] documented in this encounter Visit Diagnoses Diagnosis Cancer of left renal pelvis (HCC) Encounter for long-term (current) use of medications Encounter for long-term (current) use of other medications documented in this encounter Advance Directives Latest [...] the patient have Health Care Power of Childcare Teacher? Yes, not currently available Code Status [...] the patient have Health Care Power of Childcare Teacher? No Care Teams Certified Shorthand Reporter Relationship Specialty Start Date End Date Elissa Carrero MD [address] [address] PCP - General Family Medicine 12/29/22 documented as of this encounter
--- OUTSIDE RECORDS SUMMARY | 2023-11-20 05:46 | External Medical Summary ---
Author Name Unknown Address Unknown Organization K01:[facility] [address] [facility] [address] [place] [address] Laboratory Report Ordering Provider Test Date Status PENELOPE WALLACE 11/05/2023 09:55:09 Final Observation Date Value Abnormality Reference (Units ) Status TSH 11/05/2023 09:55:09 3.44 0.27-4.20 (uIU/mL) Final Performing Location [facility] [address] [place] [address]
--- OUTSIDE RECORDS SUMMARY | 2023-11-20 05:46 | External Medical Summary | Summary of Care ---
Author Name Unknown Organization [facility] Address [address] [place] [address] Phone [phone] Care Team Providers Care Cashier Checker Name Role Phone Elissa Carrero MD Primary Care Provider Reason for Visit * Reason Comments Chemotherapy C3/D1 - Keytruda * Episode Based Medications (Routine) - Authorized Specialty Diagnoses / Procedures Referred By Contac t Referred To Contact Diagnoses Cancer of left renal pelvis (HCC) Encounter for antineoplastic chemotherapy Malignant neoplasm of overlapping sites of bladder (HCC) Procedures [place] INJ PEMBROLIZUMAB Romel Perez MD [address] [place] [address] [place] [address] Anc Hem/Onc [facility] Tammy [address] [place] [phone] Referral ID Status Reason Start Date Expiration Date V isits Requested Visits Authorized [id number] Authorized 09/11/2023 08/17/2099 999 999 Encounter Details Date Type Department Care Team (Latest Contact Info) Description 11/05/2023 11:00 AM EST Hem/Onc Treatment Hematology/Oncolog y Treatment, [address] [phone] Tammy, Chair 3 Hem On[address] [place] [address] Cancer of left renal pelvis (HCC)*; [...] mRNA, LNP-s, No Pre serve, 2-Dose Series ([employer]) 01/09/2022,06/28/2021,11/10/2020,10/21 Pneumococcal Conjugate Vacc, 13 Valent (Prevnar) [...] 10:15 AM EST Office Visit Family Medicine, [facility] 7095 [facility] [address] [place] [phone] Elissa Carrero MD 7095 [facility] [place] [address] [place] [address] 11/26/2023 12:30 PM EDT Laboratory Laboratory [facility] [address] [place] [phone] Tammy, Lab Scenery [address] [place] [address] 11/26/2023 1:30 PM EDT Hem/Onc Treatment Hematology/Oncology Treatment, [place] [address] [place] [phone] Tammy, Chair 8 Hem Onc Scenery [address] [address] 12/11/2023 9:45 AM EDT Imaging Radiology [address], [address] [address] 12/17/2023 8:30 AM EDT Laboratory Laboratory [facility] [address] [place] [phone] Tammy, Lab Scenery [address] [place] [address] 12/17/2023 9:00 AM EDT Office Visit Hematology/Oncology [facility] [place] [address] [place] [phone] Romel Perez MD [address] [place] [address] 12/17/2023 9:30 AM EDT Hem/Onc Treatment Hematology/Oncology Treatment, [place] [address] [place], [place] [address] Tammy, Chair [address] [facility] 200 [facility] [place] [address] 05/13/2024 2:00 PM EDT Office Visit Nephrology, [facility] 200 [place] [address] Geraldo Sheehan MD 200 [place] [address] Health Maintenance Due Date Last Done Comments Depression Screening 1957 Albumin/Creatinine Ratio 02/07/1964 CKD PHOS USE SMARTSET 02525 02/07/1964 Zoster Vaccines (2 of 3) 10/29/2013 09/03/2013 COVID-19 Vaccine ( season) 2023 01/09/2022, 06/28/2021, 11/10/2020, Additional history exists GFR 05/05/2024 11/05/2023, 09/18, 09/24/2023, Additional history exists CKD HGB USE SMARTSET 17420 11/05/202411/05, 11/05/2023, 10/15/2023, Additional history exists DTaP,Tdap,and [...] this encounter Medical Devices Implanted Type Area Black Top Roller Device Identifier Shelf Expiration Date Model / Serial / Lot Port Implant W/8f Poly Cath - [id number] Implanted:Qty : 1 on 09/21/2023 by Phill Patrick MD at OR [facility] Right: Chest CR BARD : PERIPHERAL VASCULAR [id number] 08/16/2024 [id number] / / [id number] documented as of this encounter Visit Diagnoses Diagnosis Cancer of left renal pelvis (HCC)- Primary Encounter for antineoplastic chemotherapy Malignant neoplasm of overlapping sites of bladder (HCC) Malignant neoplasm of other specified sites of bladder documented in this encounter Administered Medications Active Administered Medications - up to 3 most recent administrations Medication Order MAR Action Action Date Dose Rate Site diphenhydrAMINE (Benadryl) inj 50 mg 50 mg, IV Push, ONCE PRN Other, Hypersensitivity Reaction, Starting on Sun11/05/23 at 1118, Until Sun11/06/23 at 1117, For 24 hours EPINEPHrine 1 MG/ML inj 0.3 mg 0.3 mg, Intramuscular, ONCE PRN Other, Hypersensitivity Reaction or Anaphylaxis, Starting on Sun11/05/23 at 1118, Until Sun11/06/23 at 1117, For 24 hours hEParin 100 UNIT/ML Lock Flush inj 500 Units 500 Units (5 mL), IV Lock, PRN Other, IV Flush, Starting on Sun11/05/23 at 1118, Until Sun11/06/23 at 111, For 24 hours, Do not flush if lock, PICC, or central line not in place; IV infusing or unable to flush. Given 11/05/2023 12:02 PM EST 500 Units Hydrocortisone Sod Suc (PF) (Solu-Cortef) inj 100 mg 100 mg, IV Push, ONCE PRN Other, Hypersensitivity Reaction, Starting on Sun11/05/23 at 1118, Until Sun11/06/23 at 1117, For 24 hours NSS infusion Intravenous, at 50 mL/hr, PRN, Starting on Sun11/05/23 at 1230, Until Discontinued, Maintenance line Start Infusion 11/05/2023 11:19 AM EST 50 mL/hr oxygen GAS Inhalation, OXYGEN, First dose on Sun11/05/23 at 1600, Until Discontinued, Device/Managed by: Low Flow Device, Goal SPO2 (%): 91-95, Starting Device: Nasal Cannula, Initial Flow Rate (LPM): 2, Lowest Support: Nasal Cannula: Flow 0-6 LPM. Titrate up/down by 1 LPM., Higher Support: Non-Rebreather (NRB) Mask: Minimum of 10 LPM. Titrate to maintain bag inflation., Titration Interval: Q2 minutes and as needed., Notify Provider: For sudden DECREASE in resting SPO2 to less than 85% and when escalating delivery device., Wean patient off Oxygen when the oxygen saturation is greater than or equal to 93% sodium chloride 0.9 % flush central line 10 mL 10 mL, IV Push, PRN Other, IV Flush, Starting on Sun11/05/23 at 1118, Until Sun11/06/23 at 1117, For 24 hours, Do not flush if lock, PICC, or central line not in place; IV infusing or unable to flush. Given 11/05/2023 12:02 PM EST 10 mL Inactive Administered Medications - up to 3 most recent administrations Medication Order MAR Action Action Date Dose Rate Site Pembrolizumab (Keytruda) 200 mg in NSS 100 mL infusion 200 mg, IV Piggyback, ONCE, 1 dose, On Sun11/05/23 at 1300, Administer over 30 Minutes, Infuse through 0.2 micron filter. Start Infusion 11/05/2023 11:20 AM EST 200 mg 200 mL/hr documented in [...] the patient have Health Care Power of Underbaster? Yes, not currently available Code Status History [...] the patient have Health Care Power of Underbaster? No Care Teams Cashier Checker Relationship Specialty Start Date End Date Elissa Carrero MD [address] [address] PCP - General Family Medicine 12/29/22 documented as of this encounter
--- OUTSIDE RECORDS SUMMARY | 2023-11-20 05:46 | External Medical Summary ---
Author Name Unknown Address Unknown Organization K09:[facility] [place] [address] Laboratory Report Ordering Provider Test Date Status PENELOPE WALLACE 11/05/2023 09:55:09 Final Observation Date Value Abnormality Reference (Units ) Status SYNC LEUKOCYTES IN BLOOD BY AUTOMATED COUNT 11/05/2023 09:55:09 7.72 4.00-10.80 (K/uL) Final Segs 11/05/2023 09:55:09 67.5 40.0-75.0 (%) Final Lymphs % 11/05/2023 09:55:09 18.1 18.0-42.0 (%) Final Monos 11/05/2023 09:55:09 10.0 1.0-11.0 (%) Final Eosinophils 11/05/2023 09:55:09 4.0 0.0-6.0 (%) Final Basos 11/05/2023 09:55:09 0.4 0.0-2.0 (%) Final Absolute Segs 11/05/2023 09:55:09 5.21 1.80-7.70 (K/uL) Final Lymphs, absolute 11/05/2023 09:55:09 1.40 1.00-4.80 (K/ul) Final Monos, Abs 11/05/2023 09:55:09 0.77 0.00-1.10 (K/uL) Final Eos, Abs 11/05/2023 09:55:09 0.31 0.00-0.70 (K/uL) Final Basos, Abs 11/05/2023 09:55:09 0.03 0.00-0.20 (K/uL) Final Performing Location [facility] [address] [place] [address]
--- OUTSIDE RECORDS SUMMARY | 2023-11-20 05:46 | External Medical Summary | Summary of Care ---
Author Name Unknown Organization [facility] Address [address] [place] [address] Phone [phone] Care Team Providers Care Antique Furniture Repairer Name Role Phone Elissa Carrero MD Primary Care Provider Reason for Visit * Reason Onset Date Comments Advice 07/31/2023 Encounter Details Date Type Department Care Team (Late st Contact Info) Description 07/31/2023 Telephone Urology, [place] [address] [place] [address] Services, Scheduling [address] [place] [address] Advice Allergies Active Allergy Reactions Criticality Noted Date Comments Lisinopril 07/04/2019 Other reaction(s): Angioedema Piroxicam 10/25/2022 Other reaction(s): muscle spasms documented as of this encounter (statuses as of 10/30/2023) Medications Medication Sig Dispensed Refills Start Date [...] for Heartburn. 90 Tablet 3 06/21/2023 Active documented as of this encounter (statuses as of 10/30/2023) Active Problems Problem Noted Date Diagnosed Date [...] as of this encounter (statuses as of 10/30/2023) Resolved Problems Problem Noted Date Diagnosed Date Resolved Date Stage 3a chronic kidney disease 10/27/2022 01/24/2023 Overview: Per CKD protocol documented as of this encounter (statuses as of 10/30/2023) Immunizations Name Administration Dates Next Due COVID-19 mRNA, LNP-s, No Pre serve, 2-Dose Series (Pfizer) 01/09/2022,06/28/2021,11/10/2020,10/21 Pneumococcal Conjugate Vacc, 13 Valent (Prevnar) 01/14/2016 Pneumococcal Polysaccharide PPV23 (Pneumovax) 08/06/2013 Seasonal Influenza, Quadriva lent Hd (Fluzone Hd) 06/27/2022,07/12/2021,06/17/2015,06/26 Seasonal Influenza, Quadriva lent Hd, 65+ Yrs [...] encounter Miscellaneous Notes * Telephone Encounter - Daniela Helms OSA - 07/31/2023 11:30 AM EST Pt. asking for call back regarding report from PET scan done by Hem Oncology, which showed possiblecancer in lymph glands. Report should have been emailed to dr. Alvarado. Pt is out today after 1.30pm, so would like call back on his to speak with Dr. Alvarado. documented in this encounter Plan of Treatment Upcoming Encounters Date Type Department Care Team (Late st Contact Info) Description 11/05/2023 10:00 AM EST Laboratory Laboratory [facility] [employer] [address] [place] [phone] Tammy Lab [facility] 200 [facility] [place] [address] 11/05/2023 11:00 AM EST Hem/Onc Treatment Hematology/Oncology Treatment, [place] [address] [place] [address] Tammy, Chair 3 Hem Onc Scenery 200 [facility] [place] [address] 11/23/2023 10:15 AM EST Office Visit Family Medicine, [facility] [address] [facility] [address] [place] [phone] Elissa Carrero MD 7095 [facility] [address] [place] [address] 11/26/2023 12:30 PM EDT Laboratory Laboratory [place] Sanchez [address] [place] [phone] Tammy Lab [facility] 200 [facility] [place] [address] 11/26/2023 1:30 PM EDT Hem/Onc Treatment Hematology/Oncology Treatment, [place] 200 [facility], [place] [address] Tammy, Chair 8 Hem Onc Scenery [address] [place], [place] [address] 12/11/2023 9:45 AM EDT Imaging Radiology [address], [place] [address] [place] [address] 12/17/2023 8:30 AM EDT Laboratory Laboratory [facility] [address] [place] [phone] Tammy, Lab [facility] [address] [place], [place] [address] 12/17/2023 9:00 AM EDT Office Visit Hematology/Oncology [facility] [address] [place] [address] Romel Perez MD [address] [place], [place] [address] 12/17/2023 9:30 AM EDT Hem/Onc Treatment Hematology/Oncology Treatment, [place] 200 [place] [address] Tammy, Chair 8 Hem Onc Scenery [address] [place], [place] [address] 05/13/2024 2:00 PM EDT Office Visit Nephrology, [facility] [address] [place], [place] [address] Geraldo Sheehan MD 200 [facility] [place], [place] [address] Health Maintenance Due Date Last Done Comments Depression Screening 1957 Albumin/Creatinine Ratio 02/07/1964 CKD PHOS USE SMARTSET 69347 02/07/1964 Zoster Vaccines (2 of 3) 10/29/2013 09/03/2013 COVID-19 Vaccine (5 - 2023-24 season) 2023 01/09/2022, 06/28/2021, 11/10/2020, Additional history exists GFR 04/14/2024 10/15/2023, 04/2024, 08/15/2023, Additional history exists CKD HGB USE SMARTSET 93369 10/15/202410/15, 10/15/2023, 09/24/2023, Additional history exists DTaP,Tdap,and [...] this encounter Medical Devices Implanted Type Area Garage Door Technician Device Identifier Shelf Expiration Date Model / Serial / Lot Port Implant W/8f Poly Cath - [id number] Implanted:Qty : 1 on 09/21/2023 by Phill Patrick MD at OR [facility] Right: Chest CR BARD : PERIPHERAL VASCULAR [id number] 08/16/2024 [id number] / / [id number] documented as of this encounter Advance Directives [...] the patient have Health Care Power of On Site Construction Superintendent? Yes, not currently available Code Status History [...] the patient have Health Care Power of On Site Construction Superintendent? No Care Teams Antique Furniture Repairer Relationship Specialty Start Date End Date Elissa Carrero MD [address] [place] [address] PCP - General Family Medicine 12/29/22 documented as of this encounter
--- OUTSIDE RECORDS SUMMARY | 2023-11-20 05:47 | External Medical Summary | Summary of Care ---
Author Name Unknown Organization [facility] Address [address] [facility] [place] [address] Phone [phone] Care Team Providers Care Bridge Expert Name Role Phone Elissa Carrero MD Primary Care Provider Encounter Details Date Type Department Care Team (Late st Contact Info) Description 10/09/2023 Orders Only Hematology/Oncology [place] [facility] Sanchez 200 [facility] [place] [address] Romel Perez MD [address] [place] [address] Allergies Active Allergy Reactions Criticality Noted Date Comments Lisinopril 07/04/2019 Other reaction(s): Angioedema Piroxicam 10/25/2022 Other reaction(s): muscle spasms documented as of this encounter (statuses as of 10/09/2023) Medications Medication Sig Dispensed Refills Start Date [...] for Nausea. 30 Tablet 0 06/27/2022 Active Modafinil 100 MG Oral Tablet (Provigil) Take 1 Tablet by mouth as needed (fatigue). 90 Tablet 1 11/03/2022 Active traMADol HCl 50 MG Oral Tablet [...] Tablet by mouth every evening. 0 Active documented as of this encounter (statuses as of 10/09/2023) Active Problems Problem Noted Date Diagnosed Date [...] as of this encounter (statuses as of 10/09/2023) Resolved Problems Problem Noted Date Diagnosed Date Resolved Date Stage 3a chronic kidney disease 10/27/2022 01/24/2023 Overview: Per CKD protocol documented as of this encounter (statuses as of 10/09/2023) Immunizations Name Administration Dates Next Due COVID-19 mRNA, LNP-s, No Pre serve, 2-Dose Series (Zappos) 01/09/2022,06/28/2021,11/10/2020,10/21 Pneumococcal Conjugate Vacc, 13 Valent (Prevnar) [...] Care Team (Late st Contact Info) Description 10/10/2023 3:30 PM EST Office Visit Family Medicine, [facility] 7095 [facility] [address] [place] [phone] Elissa Carrero MD 7095 [facility] [address] [place] [address] 10/11/2023 2:00 PM EST Telemedicine Palliative Medicine [facility] [address] [place] [address] Jennifer Velasquez MD [address] [place] [address] 10/15/2023 11:00 AM EST Laboratory Laboratory [place] Derrick Munoz [address] [place] [phone] [place], Lab Scenery [address] [place] [address] 10/15/2023 11:30 AM EST Office Visit Hematology/Oncology [facility] [place] [address] [facility] [address] [place], [place] [address] Dipti Guaman CRNP 400 [facility] [place] [address] 10/15/2023 12:00 PM EST Hem/Onc Treatment Hematology/Oncology Treatment, [place] 200 [facility] [place] [address] Tammy, Chair 4 Hem Onc [address] [place] [address] 11/23/2023 10:15 AM EST Office Visit Family Medicine, [facility] 7095 [facility] [address] [place] [phone] Elissa Carrero MD 7095 [facility] [address] [place] [address] 05/13/2024 2:00 PM EDT Office Visit Nephrology, [facility] 200 [facility] [place] [address] Geraldo Sheehan MD [address] [facility] [address] [place], [place] [address] Health Maintenance Due Date Last Done Comments Depression Screening 1957 Albumin/Creatinine Ratio 02/07/1964 CKD PHOS USE SMARTSET 50723 02/07/1964 Zoster Vaccines (2 of 3) 10/29/2013 09/03/2013 COVID-19 Vaccine ( season) 2023 01/09/2022, 06/28/2021, 11/10/2020, Additional history exists GFR 03/24/2024 09/24/2023, 07/19, 07/17/2023, Additional history exists CKD HGB USE SMARTSET 44526 09/24/202409/24, 09/24/2023, 08/15/2023, Additional history exists DTaP,Tdap,and Td Vaccines (3 [...] this encounter Medical Devices Implanted Type Area Sales Officer Device Identifier Shelf Expiration Date Model / Serial / Lot Port Implant W/8f Poly Cath - [id number] Implanted:Qty : 1 on 09/21/2023 by Phill Patrick MD at OR [facility] Right: Chest CR BARD : PERIPHERAL VASCULAR [id number] 08/16/2024 [id number] / / [id number] documented as of this encounter Advance Directives [...] the patient have Health Care Power of Rug Dyer Helper? Yes, not currently available Code Status History [...] the patient have Health Care Power of Rug Dyer Helper? No Care Teams Bridge Expert Relationship Specialty Start Date End Date Elissa Carrero MD [address] [address] PCP - General Family Medicine 12/29/22 documented as of this encounter
--- OUTSIDE RECORDS SUMMARY | 2023-11-20 05:47 | External Medical Summary ---
Author Name Unknown Address Unknown Organization K09[facility] [place] [address] Laboratory Report Ordering Provider Test Date Status PENELOPE WALLACE 10/15/2023 10:55:08 Final Observation Date Value Abnormality Reference (Units ) Status SYNC LEUKOCYTES IN BLOOD BY AUTOMATED COUNT 10/15/2023 10:55:08 8.15 4.00-10.80 (K/uL) Final Segs 10/15/2023 10:55:08 63.6 40.0-75.0 (%) Final Lymphs % 10/15/2023 10:55:08 21.2 18.0-42.0 (%) Final Monos 10/15/2023 10:55:08 10.8 1.0-11.0 (%) Final Eosinophils 10/15/2023 10:55:08 3.9 0.0-6.0 (%) Final Basos 10/15/2023 10:55:08 0.5 0.0-2.0 (%) Final Absolute Segs 10/15/2023 10:55:08 5.18 1.80-7.70 (K/uL) Final Lymphs, absolute 10/15/2023 10:55:08 1.73 1.00-4.80 (K/ul) Final Monos, Abs 10/15/2023 10:55:08 0.88 0.00-1.10 (K/uL) Final Eos, Abs 10/15/2023 10:55:08 0.32 0.00-0.70 (K/uL) Final Basos, Abs 10/15/2023 10:55:08 0.04 0.00-0.20 (K/uL) Final Performing Location [facility] [place] [address]
--- OUTSIDE RECORDS SUMMARY | 2023-11-20 05:47 | External Medical Summary | Summary of Care ---
Author Name Unknown Organization [facility] Address [address] [facility] [place] [address] Phone [phone] Care Team Providers Care Cost Consultant Name Role Phone Elissa Carrero MD Primary Care Provider Reason for Referral * Evaluate & Treat - Unlimited Visits (Within 10 days (routine)) - Authorized Specialty Diagnoses / Procedures Referred By Contcarl t Referred To Contact Hospice and Palliative Medicine / Palliative Medicine Diagnoses Cancer of left renal pelvis (HCC) Romel Perez MD 200 [facility] [place] [address] Referral ID Status Reason Start Date Expiration Date Visits Requested Visits Authorized [id number] Authorized Specialty Services Required 09/27/2023 999 999 Question Answer Referral Priority Within 10 days (routine) Where should this appointment be scheduled? [facility] Reason for Referral: Cancer Palliative Medicine To Address: Pain & Symptom Management Is this referral for [facility] Palliative service? (P Insurance Only) No Comments Pt hx of metastatic renal cancer. Please discuss pain management and quality of life goals going forward. Thank you. Reason for Visit * Reason Onset Date Comments Advice 09/27/2023 Encounter Details Date Type Department Care Team (Late st Contact Info) Description 09/27/2023 Telephone Hematology/Oncology [place] [address] [place] [address] [address] Romel Perez MD 200 [facility] [place] [address] Advice Allergies Active Allergy Reactions Criticality Noted Date Comments Lisinopril 07/04/2019 Other reaction(s): Angioedema Piroxicam 10/25/2022 Other reaction(s): muscle spasms documented as of this encounter (statuses as of 09/27/2023) Medications Medication Sig Dispensed Refills Start Date [...] as of this encounter (statuses as of 09/27/2023) Active Problems Problem Noted Date Diagnosed Date [...] as of this encounter (statuses as of 09/27/2023) Resolved Problems Problem Noted Date Diagnosed Date Resolved Date Stage 3a chronic kidney disease 10/27/2022 01/24/2023 Overview: Per CKD protocol documented as of this encounter (statuses as of 09/27/2023) Immunizations Name Administration Dates Next Due COVID-19 mRNA, LNP-s, No Pre serve, 2-Dose Series (RadiumOne) 01/09/2022,06/28/2021,11/10/2020,10/21 Pneumococcal Conjugate Vacc, 13 Valent (Prevnar) [...] encounter Miscellaneous Notes * Telephone Encounter - Troy Dominguez RN - 09/27/2023 2:22 PM EST Palliative Medicine referral placed. Called patient to discuss this with him and he is agreeable. * Telephone Encounter - Troy Dominguez RN - 09/27/2023 10:48 AM EST Reviewed patient chart. Pt states his stomach pain has come off and on a week prior to his infusion. He is taking 1,000mg Tylenol BID and torrey-seltzer with some effect. Notices the pain worsening over time. He rates this pain 5/10 primarily in his lower abdomen. He is moving his bowels well without signs of blood/dark stools. He denies any urinary issues. I advised that the patient may take another 1,000mg at lunch time to help as well. Dr. Perez- Pt had recent CT Abdomen that showed no issues regarding the stomach. Would you like to prescribe anything further for pain? Pt started Keytruda treatment 09/24/23. * Telephone Encounter - Earnestine Lopez OSA - 09/27/2023 10:14 AM EST Patient is calling, he is on keytruda and is having upset stomach, stomach pain, lower abdominal pain and wants to speak with a nurse about side effects Please call him back to advise. documented in this encounter Plan of Treatment Upcoming Encounters Date Type Department Care Team (Late st Contact Info) Description 10/15/2023 11:00 AM EST Laboratory Laboratory [place] [address] [place] [address] [phone] [place] [address] 10/15/2023 11:30 AM EST Office Visit Hematology/Oncology [place] [facility] [place] [address] [place] [address] Dipti Gilliam CRNP 400 [facility] [place] [address] 10/15/2023 12:00 PM EST Hem/Onc Treatment Hematology/Oncology Treatment, [place] 200 [facility] [place] [address] Tammy, Chair 4 Hem Onc [address] [place] [address] 11/23/2023 10:15 AM EST Office Visit Family Medicine, [facility] 7095 [facility] 1100 [place] [phone] Elissa Carrero MD 7095 [facility] [address] [place] [address] 05/13/2024 2:00 PM EDT Office Visit Nephrology, [facility] 200 [facility] [place] [address] Geraldo Sheehan MD 200 [facility] [place] [address] Scheduled Referrals Name Type Priority Associated Diagnoses Orde r Schedule PALLIATIVE CARE REFERRAL OP Referral Within 10 days (routine) Cancer of left renal pelvis (HCC) Ordered: 09/27/2023 Health Maintenance Due Date Last Done Comments Depression Screening 1957 Albumin/Creatinine Ratio 02/07/1964 CKD PHOS USE SMARTSET 30673 02/07/1964 Zoster Vaccines (2 of 3) 10/29/2013 09/03/2013 COVID-19 Vaccine ( season) 2023 01/09/2022, 06/28/2021, 11/10/2020, Additional history exists GFR 03/24/2024 09/24/2023, 07/19, 07/17/2023, Additional history exists CKD HGB USE SMARTSET 27684 09/24/202409/24, 09/24/2023, 08/15/2023, Additional history exists DTaP,Tdap,and [...] this encounter Medical Devices Implanted Type Area E Commerce Retailer Device Identifier Shelf Expiration Date Model / Serial / Lot Port Implant W/8f Poly Cath - [id number] Implanted:Qty : 1 on 09/21/2023 by Phill Patrick MD at OR [facility] Right: Chest CR BARD : PERIPHERAL VASCULAR [id number] 08/16/2024 [id number] / / [id number] documented as of this encounter Visit Diagnoses Diagnosis Cancer of left renal pelvis (HCC)- Primary documented in this encounter Advance Directives Latest [...] the patient have Health Care Power of Milk Pickup Driver? Yes, not currently available Code Status History [...] the patient have Health Care Power of Milk Pickup Driver? No Care Teams Cost Consultant Relationship Specialty Start Date End Date Elissa Carrero MD [address] [place] [address] PCP - General Family Medicine 12/29/22 documented as of this encounter
--- OUTSIDE RECORDS SUMMARY | 2023-11-20 05:47 | External Medical Summary ---
Author Name Unknown Address Unknown Organization K09[facility] [place] [address] Laboratory Report Ordering Provider Test Date Status PENELOPE WALLACE 10/15/2023 10:55:08 Final Observation Date Value Abnormality Reference (Units ) Status WBC, Total 10/15/2023 10:55:08 8.15 4.00-10.8 0 (K/uL) Final RBC 10/15/2023 10:55:08 4.58 4.50-5.25 (M/uL) Final Hemoglobin 10/15/2023 10:55:08 14.4 14.0-16.8 (g/dL) Final HCT 10/15/2023 10:55:08 44.2 40.0-48.4 (%) Final MCV 10/15/2023 10:55:08 96.5 82.0-99.5 (fL) Final MCH 10/15/2023 10:55:08 31.4 27.0-34.0 (pg) Final MCHC 10/15/2023 10:55:08 32.6 32.0-36.0 (g/dL) Final RDW 10/15/2023 10:55:08 13.3 11.5-15.5 (%) Final Platelets 10/15/2023 10:55:08 215 140-400 (K /uL) Final MPV 10/15/2023 10:55:08 10.5 6.6-11.1 ( fL) Final Performing Location [facility] [place] [address]
--- OUTSIDE RECORDS SUMMARY | 2023-11-20 05:47 | External Medical Summary | Summary of Care ---
Author Name Unknown Organization [facility] Address [address] [place] [address] Phone [phone] Care Team Providers Care Gold Cutter Name Role Phone Elissa Carrero MD Primary Care Provider Reason for Visit * Reason Comments Follow Up Encounter Details Date Type Department Care Team (Late st Contact Info) Description 10/11/2023 2:00 PM EST Telemedicine Palliative Medicine [facility] [address] [place] [address], [place] [phone] Jennifer Velasquez MD [address], [place] [phone] Cancer related pain*; Malignant neoplasm of overlapping sites of bladder (HCC); Palliative care encounter; Nausea; Advance directive discussed with patient Allergies Active Allergy Reactions Criticality Noted Date Comments Lisinopril 07/04/2019 Other reaction(s): Angioedema Piroxicam 10/25/2022 Other reaction(s): muscle spasms documented as of this encounter (statuses as of 10/11/2023) Medications Medication Sig Dispensed Refills Start Date [...] as of this encounter (statuses as of 10/11/2023) Active Problems Problem Noted Date Diagnosed Date [...] as of this encounter (statuses as of 10/11/2023) Resolved Problems Problem Noted Date Diagnosed Date Resolved Date Stage 3a chronic kidney disease 10/27/2022 01/24/2023 Overview: Per CKD protocol documented as of this encounter (statuses as of 10/11/2023) Immunizations Name Administration Dates Next Due COVID-19 mRNA, LNP-s, No Pre serve, 2-Dose Series ([employer]) 01/09/2022,06/28/2021,11/10/2020,10/21 Pneumococcal Conjugate Vacc, 13 Valent (Prevnar) [...] as of this encounter Progress Notes * Jennifer Velasquez MD - 10/11/2023 12:12 PM EST PROGRESS NOTE - Palliative Medicine Name: Drew Rosen Date: 10/11/2023 Drew Rosen is a 78 year old male seen in follow-up for symptom management for diagnosis of metastatic renal cell cancer. Patient was last seen by me on 10/03/2023 for new onset suprapubic pain. Patient is currently receiving immunotherapy. SUBJECTIVE: After connecting to the patient via telephone, the patient was identified by name and date of . Patient was then informed that this was a telephone call only visit. The patient agreed to participate. Visit Disposition: Routine follow-up Total call duration was 15 minutes. Chart reviewed. There was no family with him during this visit Interval history: During last visit patient had complained of suprapubic pain without any exacerbating and relieving factors. It was thought to be since starting Keytruda. Patient was advised to taketramadol around the clock as he was reluctant to try any new medication. Today patient reports that suprapubic pain persist but tolerable. He had an appointment with his PCP recently who advised him to use lidocaine gel at suprapubic and right groin area. Patient tried and was not effective. He plans to continue using it more often. He takes tramadol 50 mg tablet half tablet 3 times a day. Some days he takes twice a day. He does not like to take too many pain medications. He shares that he wants to deal with the pain the way it is He is scheduled for Keytruda on 10/15/2023 He has no new complaints for today OBJECTIVE: Unable to complete physical examination due to telephonic visit LABS REVIEWED: No labs to review since last palliative Medicine visit IMAGING REVIEWED: No new imaging studies to review since last palliative Medicine visit Current Outpatient Medications Medication Sig Dispense Refill [...] No current facility-administered medications for this visit. ASSESSMENT/PLAN: Drew Rosen is a/an 78 year old male with metastatic renal cell cancer, followed by palliative Medicine for symptom management and supportive care. Secondary Diagnoses are hypertension, hyperlipidemia, BPH, chronic back pain, chronic kidney disease Encounter for palliative care Goals of care/advance directive/advance care planning Currently patient is receiving immunotherapy for metastatic renal cell cancer at [facility] During last palliative Medicine visit patient was working with his to complete advance directives. Today patient shared he has not completed and will be working on it. Chronic back pain Chronic kidney disease Suprapubic pain- persist with tolerable Continue gabapentin 600 mg, 2 capsules in the morning, 1 capsule in the afternoon into capsule at bedtime as prescribed by PCP Continue tramadol 50 mg tablet, take half tablet 3 times a day. Patient was advised to take full tablet for severe pain. Patient has enough tramadol from last prescription from last year and does notrequire any new refills today He plans to continue using lidocaine gel As per PCP note if pain persists and plan for ultrasound to rule out hernia Patient does not like too many changes in his current regimen. His symptoms are tolerable and he would like to continue current analgesic regimen Advised to continue laxatives In the future patient does have an option of seeing palliative care at [facility] or [facility] aspreferred location. Patient wants to wait till next immunotherapy appointment on 10/15/2023 to determine the next follow-up plan. I communicated this with palliative Medicine nurse navigator Yolanda Walker to call the patient in 10 days. Currently patient is not scheduled for follow-up as per hisrequest documented in this encounter Plan of Treatment Upcoming Encounters Date Type Department Care Team (Late st Contact Info) Description 10/15/2023 11:00 AM EST Laboratory Laboratory [facility] Sanchez [address] [place] [address] Francisco Munoz [place] [address] [place], [place] [address] 10/15/2023 11:30 AM EST Office Visit Hematology/Oncology [facility] [place] [address] [place], [place] [address] Dipti Guaman, REHAN [address] [facility] [place] [address] 10/15/2023 12:00 PM EST Hem/Onc Treatment Hematology/Oncology Treatment, [place] [address] [place], [place] [address] Tammy, Chair 4 Hem Onc [facility] [address] [place], [place] [address] 11/23/2023 10:15 AM EST Office Visit Family Medicine, [facility] [place] [address] [facility] [address] [place] [phone] Elissa Carrero MD [address] [facility] [address] [facility] [address] 05/13/2024 2:00 PM EDT Office Visit Nephrology, [facility] [address] [place], [place] [address] Geraldo Sheehan MD [address] [place], [place] [address] Health Maintenance Due Date Last Done Comments Depression Screening 1957 Albumin/Creatinine Ratio 02/07/1964 CKD PHOS USE SMARTSET 40791 02/07/1964 Zoster Vaccines (2 of 3) 10/29/2013 09/03/2013 COVID-19 Vaccine ( season) 2023 01/09/2022, 06/28/2021, 11/10/2020, Additional history exists GFR 03/24/2024 09/24/2023, 11/2 05/2023, 07/17/2023, Additional history exists CKD HGB USE SMARTSET 41136 09/24/202409/24, 09/24/2023, 08/15/2023, Additional history exists DTaP,Tdap,and [...] this encounter Medical Devices Implanted Type Area Top Stop Attacher Device Identifier Shelf Expiration Date Model / Serial / Lot Port Implant W/8f Poly Cath - [id number] Implanted:Qty : 1 on 09/21/2023 by Phill Patrick MD at OR [facility] Right: Chest CR BARD : PERIPHERAL VASCULAR [id number] 08/16/2024 [id number] / / [id number] documented as of this encounter Visit Diagnoses Diagnosis Cancer related pain- Primary Neoplasm related pain (acute) (chronic) Malignant neoplasm of overlapping sites of bladder (HCC) Malignant neoplasm of other specified sites of bladder Palliative care encounter Encounter for palliative care Nausea Nausea alone Advance directive discussed with patient Other specified counseling documented in this encounter Advance Directives Latest [...] the patient have Health Care Power of Shipping Point Inspector? Yes, not currently available Code Status History [...] the patient have Health Care Power of Shipping Point Inspector? No Care Teams Gold Cutter Relationship Specialty Start Date End Date Elissa Carrero MD [address] [address] PCP - General Family Medicine 12/29/22 documented as of this encounter
--- OUTSIDE RECORDS SUMMARY | 2023-11-20 05:47 | External Medical Summary | Summary of Care ---
Author Name Unknown Organization [facility] Address [address] [place] [address] Phone [phone] Care Team Providers Care Continuous Improvement Analyst Name Role Phone Elissa Carrero MD Primary Care Provider Reason for Visit * Reason Comments Chemotherapy Keytruda * Episode Based Medications (Routine) - Authorized Specialty Diagnoses / Procedures Referred By Contcarl t Referred To Contact Diagnoses Cancer of left renal pelvis (HCC) Encounter for antineoplastic chemotherapy Malignant neoplasm of overlapping sites of bladder (HCC) Procedures AR INJ PEMBROLIZUMAB Romel Perez MD [address] [place] [address] [place] [address] Anc Hem/Onc [facility] Tammy [address] [place] [address] Referral ID Status Reason Start Date Expiration Date V isits Requested Visits Authorized [id number] Authorized 09/11/2023 08/17/[phone] Encounter Details Date Type Department Care Team (Latest Contact Info) Description 10/15/2023 12:00 PM EST Hem/Onc Treatment Hematology/Oncolog y Treatment, [address] [address] Tammy, Chair 4 Hem Onc [address] [place] [address] Cancer of left renal pelvis (HCC)*; Encounter for antineoplastic chemotherapy; Malignant neoplasm of overlapping sites of bladder (HCC) Allergies Active Allergy Reactions Criticality Noted Date Comments Lisinopril 07/04/2019 Other reaction(s): Angioedema Piroxicam 10/25/2022 Other reaction(s): muscle spasms documented as of this encounter (statuses as of 10/15/2023) Medications Medication Sig Dispensed Refills Start Date [...] as of this encounter (statuses as of 10/15/2023) Active Problems Problem Noted Date Diagnosed Date [...] as of this encounter (statuses as of 10/15/2023) Resolved Problems Problem Noted Date Diagnosed Date Resolved Date Stage 3a chronic kidney disease 10/27/2022 01/24/2023 Overview: Per CKD protocol documented as of this encounter (statuses as of 10/15/2023) Immunizations Name Administration Dates Next Due COVID-19 mRNA, LNP-s, No Pre serve, 2-Dose Series ([employer]) 01/09/2022,06/28/2021,11/10/2020,10/21 Pneumococcal Conjugate Vacc, 13 Valent (Prevnar) [...] as of this encounter Nursing Notes * Beatriz Loyola, RN - 10/15/2023 2:10 PM EST Pt completed treatment without issues. VAD flushed with 10 ml NSS and Heparin 5 ml (100 units/ml). Conrad needle removed intact. Goals: Pt will remain free from injury. Possible barriers to meeting goals: ambulation with IV pole Stability of the patient: Moderately stable - low risk of patient condition declining or worsening Summary regarding today's goals: Met: Pt remained free from injury during treatment today. Discharged in stable condition. CT assisted. * Beatriz Loyola RN - 10/15/2023 12:50 PM EST Chair 11, Keytruda. Pt seen by Dipti VAN; refer to OV notes. Labs stable for treatment. VAD accessed; Keytruda infusing. Safety and Risk for Injury Patient will remain free from injury. Ensure appropriate safety devices are available. Provide and maintain safe environment. Functional status at today's visit: Restricted in [...] symptoms or adverse side effects during treatment. documented in this encounter Plan of Treatment Upcoming Encounters Date Type Department Care Team (Late st Contact Info) Description 11/05/2023 10:00 AM EST Laboratory Laboratory [facility] [place] [address] [place] [phone] Tammy, Lab [address]en[address] [facility] [place] [address] 11/05/2023 11:00 AM EST Hem/Onc Treatment Hematology/Oncology Treatment, [place] [address] [place] [address] Tammy, Chair 3 Hem Onc [place] [address] [place] [address] 11/23/2023 10:15 AM EST Office Visit Family [facility], [facility] [place] [address] [facility] [address] [place] [phone] Elissa Carrero MD 70[address] [facility] [address] [place] [address] 11/26/2023 12:30 PM EDT Laboratory Laboratory [facility] Tammy [place] [address] [place] [phone] Tammy, Lab Scenery [address] [place] [address] 11/26/2023 1:30 PM EDT Hem/Onc Treatment Hematology/Oncology Treatment, [place] [address] [place] [address] Tammy, Chair 8 Hem Onc [place] [address] [place] [address] 12/11/2023 9:45 AM EDT Imaging Radiology [facility], [place] [address] [facility] [place] [address] 12/17/2023 8:30 AM EDT Laboratory Laboratory [facility] Tammy [place] [address] [place] [phone] Tammy Lab Scenery [address] [place] [address] 12/17/2023 9:00 AM EDT Office Visit Hematology/Oncology [facility] Tammy [place] [address] [place] [address] Romel Perez MD [address] [place] [address] 12/17/2023 9:30 AM EDT Hem/Onc Treatment Hematology/Oncology Treatment, [place] [address] [place] [address] Tammy, Chair 8 Hem Onc [place] [address] [place] [address] 05/13/2024 2:00 PM EDT Office Visit Nephrology, Gianluca Munoz 200 [facility] [place] [address] Geraldo Sheehan MD [address] [facility] [place] [address] Health Maintenance Due Date Last Done Comments Depression Screening 1957 Albumin/Creatinine Ratio 02/07/1964 CKD PHOS USE SMARTSET 41423 02/07/1964 Zoster Vaccines (2 of 3) 10/29/2013 09/03/2013 COVID-19 Vaccine ( season) 2023 01/09/2022, 06/28/2021, 11/10/2020, Additional history exists GFR 04/14/2024 10/15/2023, 04/2024, 08/15/2023, Additional history exists CKD HGB USE SMARTSET 66840 10/15/202410/15, 10/15/2023, 09/24/2023, Additional history exists DTaP,Tdap,and [...] this encounter Medical Devices Implanted Type Area Quality Process Lead Device Identifier Shelf Expiration Date Model / Serial / Lot Port Implant W/8f Poly Cath - [id number] Implanted:Qty : 1 on 09/21/2023 by Phill Patrick MD at OR [facility] Right: Chest CR BARD : PERIPHERAL VASCULAR [id number] 08/16/2024 [id number] / / [id number] documented as of this encounter Visit Diagnoses [...] ONCE PRN Other, Hypersensitivity Reaction, Starting on Sun10/15/23 at 1234, Until Sun10/16/23 at 1233, For 24 hours EPINEPHrine 1 MG/ML inj 0.3 mg 0.3 mg, Intramuscular, ONCE PRN Other, Hypersensitivity Reaction or Anaphylaxis, Starting on Sun10/15/23 at 1234, Until Sun10/16/23 at 1233, For 24 hours hEParin 100 UNIT/ML Lock Flush inj 500 Units 500 Units (5 mL), IV Lock, PRN Other, IV Flush, Starting on Sun10/15/23 at 1234, Until Sun10/16/23 at 1233, For 24 hours, Do not flush if lock, PICC, or central line not in place; IV infusing or unable to flush. Given 10/15/2023 1:13 PM EST 500 Units Hydrocortisone Sod Suc (PF) (Solu-Cortef) inj 100 mg 100 mg, IV Push, ONCE PRN Other, Hypersensitivity Reaction, Starting on Sun10/15/23 at 1234, Until Sun10/16/23 at 1233, For 24 hours NSS infusion Intravenous, at 50 mL/hr, PRN, Starting on Sun10/15/23 at 1345, Until Discontinued, Maintenance line Start Infusion 10/15/2023 12:31 PM EST 50 mL/hr oxygen GAS Inhalation, OXYGEN, First dose on Sun10/15/23 at 1600, Until Discontinued, Device/Managed by: Low [...] Push, PRN Other, IV Flush, Starting on Sun10/15/23 at 1234, Until Sun10/16/23 at 1233, For 24 hours, Do not flush if lock, PICC, or central line not in place; IV infusing or unable to flush. Given 10/15/2023 1:13 PM EST 10 mL Inactive Administered Medications - up to 3 most recent administrations Medication Order MAR Action Action Date Dose Rate Site Pembrolizumab (Keytruda) 200 mg in NSS 100 mL infusion 200 mg, IV Piggyback, ONCE, 1 dose, On Sun10/15/23 at 1415, Administer over 30 Minutes, Infuse through 0.2 micron filter. Start Infusion 10/15/2023 12:39 PM EST 200 mg 200 mL/hr documented [...] the patient have Health Care Power of Washing Machine Installer? Yes, not currently available Code Status History [...] the patient have Health Care Power of Washing Machine Installer? No Care Teams Continuous Improvement Analyst Relationship Specialty Start Date End Date Elissa Carrero MD [address] [address] PCP - General Family Medicine 12/29/22 documented as of this encounter
--- OUTSIDE RECORDS SUMMARY | 2023-11-20 05:47 | External Medical Summary | Summary of Care ---
Author Name Unknown Organization [facility] Address [address] [place] [address] Phone [phone] Care Team Providers Care Knotter Name Role Phone Elissa Carrero MD Primary Care Provider Reason for Visit * Reason Comments Outpatient Testing Encounter Details Date Type Department Care Team (Late st Contact Info) Description 10/15/2023 11:00 AM EST Laboratory Laboratory [facility] [address] [place] [phone] [facility] [address] [place] [address] Cancer of left renal pelvis (HCC); Encounter [...] 10/15/2023 11:30 AM EST Office Visit Hematology/Oncology [address] [place] [address] Dipti Guaman CRNP [address] [place] [address] [place] [address] Arrived 10/15/2023 12:00 PM EST Hem/Onc Treatment Hematology/Oncology Treatment, [place] 200 [facility] [place] [address] Tammy, Chair 4 Hem Onc [address] [place] [address] Arrived 11/23/2023 10:15 AM EST Office Visit Family [facility] [place] [address] [facility] [address] [place] [phone] Elissa Carrero MD 4[address] [facility] [address] [place] [address] 05/13/2024 2:00 PM EDT Office Visit Nephrology, Gianluca Munoz 200 [facility] [place] [address] Geraldo Sheehan MD 200 [facility] [place] [address] Pending Results Name Type Priority Associated Diagnoses Date /Time COMPREHENSIVE METABOLIC PANEL Lab STAT Cancer of left renal pelvis (HCC) 10/15/2023 10:55 AM EST TSH WITH FREE T4 IF INDICATED Lab STAT Cancer of left renal pelvis (HCC) Encounter for long-term (current) use of medications 10/15/2023 10:55 AM EST Health Maintenance Due Date Last Done Comments Depression Screening 1957 Albumin/Creatinine Ratio 02/07/1964 CKD PHOS USE SMARTSET 24397 02[birth year]07/1963 Zoster Vaccines (2 of 3) 10/29/2013 09/03/2013 COVID-19 Vaccine ( season) 2023 01/09/2022, 06/28/2021, 11/10/2020, Additional history exists GFR 03/24/2024 09/24/2023, 07/19, 07/17/2023, Additional history exists CKD HGB USE SMARTSET 31683 10/15/202410/15, 10/15/2023, 09/24/2023, Additional history exists DTaP,Tdap,and [...] this encounter Medical Devices Implanted Type Area On Site Property Manager Device Identifier Shelf Expiration Date Model / Serial / Lot Port Implant W/8f Poly Cath - [id number] Implanted:Qty : 1 on 09/21/2023 by Phill Patrick MD at OR [facility] Right: Chest CR BARD : PERIPHERAL VASCULAR [id number] 08/16/2024 [id number] / / [id number] documented as of this encounter Procedures Procedure Name Priority Date/Time Associated Diagnosis Comments DIFFERENTIAL, AUTOMATED STAT 10/15/2023 10:55 AM EST Cancer of left renal pelvis (HCC) CBC STAT 10/15/2023 10:55 AM EST Cancer of left renal pelvis (HCC) CBC STAT 10/15/2023 10:55 AM EST Cancer of left renal pelvis (HCC) documented in this encounter Results * DIFFERENTIAL, AUTOMATED (10/15/2023 10:55 AM EST) WBC 8.15 4.00 - 10.80 K/uL 10/15/2023 11:01 AM EST [facility] 56-02 Neutrophils % 63.6 40.0 - 75.0 % 10/15/2023 11:01 AM EST [facility] 56-02 Lymphocytes % 21.2 18.0 - 42.0 % 10/15/2023 11:01 AM EST [facility] 56-02 Monocytes % 10.8 1.0 - 11.0 % 10/15/2023 11:01 AM EST [facility] [place] 56-02 Eosinophils % 3.9 0.0 - 6.0 % 10/15/2023 11:01 AM EST [facility] [place] 56-02 Basophils % 0.5 0.0 - 2.0 % 10/15/2023 11:01 AM EST [facility] 56-02 Absolute Neutrophils 5.18 1.80 - 7.70 K/uL 10/15/2023 11:01 AM EST [facility] [place] 56-02 Absolute Lymphocytes 1.73 1.00 - 4.80 K/ul 10/15/2023 11:01 AM EST [facility] 56-02 Absolute Monocytes 0.88 0.00 - 1.10 K/uL 10/15/2023 11:01 AM [facility] 56- Absolute Eosinophils 0.32 0.00 - 0.70 K/uL 10/15/2023 11:01 AM [facility] 56- Absolute Basophils 0.04 0.00 - 0.20 K/uL 10/15/2023 11:01 AM [facility] 56- Blood Venous blood specimen / Unknown Venipuncture / Unknown 10/15/2023 10:55 AM EST 10/15/2023 10:55 AM EST Romel Perez MD LAB BLOOD [facility]A BLES [facility] [address] [place] [address] * CBC (10/15/2023 10:55 AM EST) WBC 8.15 4.00 - 10.80 K/uL 10/15/2023 11:01 AM [facility] 56 RBC 4.58 4.50 - 5.25 M/uL 10/15/2023 11:01 AM [facility] 56 HGB 14.4 14.0 - 16.8 g/dL 10/15/2023 11:01 AM [facility] 56 HCT 44.2 40.0 - 48.4 % 10/15/2023 11:01 AM [facility] 56- MCV 96.5 82.0 - 99.5 fL 10/15/2023 11:01 AM [facility] 56- MCH 31.4 27.0 - 34.0 pg 10/15/2023 11:01 AM [facility] 56 MCHC 32.6 32.0 - 36.0 g/dL 10/15/2023 11:01 AM [facility] 56 RDW 13.3 11.5 - 15.5 % 10/15/2023 11:01 AM [facility] 56- PLT 215 140 - 400 K/uL 10/15/2023 11:01 AM [facility] 56- MPV 10.5 6.6 - 11.1 fL 10/15/2023 11:01 AM EST [facility] 56 Blood Venous blood specimen / Unknown Venipuncture / Unknown 10/15/2023 10:55 AM EST 10/15/2023 10:55 AM EST Romel Perez MD LAB BLOOD ORDERA BLES [facility] 56- [address] [place] [address] documented in this encounter Visit Diagnoses Diagnosis [...] the patient have Health Care Power of Chiller Tender? Yes, not currently available Code Status History [...] the patient have Health Care Power of Chiller Tender? No Care Teams Knotter Relationship Specialty Start Date End Date Elissa Carrero MD [address] [place] [phone] PCP - General Family Medicine 12/29/22 documented as of this encounter
--- OUTSIDE RECORDS SUMMARY | 2023-11-20 05:47 | External Medical Summary ---
Author Name Unknown Address Unknown Organization K01:[facility] [place] [address] [place] [address] Laboratory Report Ordering Provider Test Date Status RODRIGOPENELOPE 10/15/2023 10:55:08 Final Observation Date Value Abnormality Reference (Units ) Status TSH 10/15/2023 10:55:08 3.68 0.27-4.20 (uIU/mL) Final Performing Location [facility] [place] [address] [facility] [address]
--- OUTSIDE RECORDS SUMMARY | 2023-11-20 05:47 | External Medical Summary | Summary of Care ---
Author Name Unknown Organization [facility] Address [address] [facility] [address] Phone [phone] Care Team Providers Care Sole Rounder Name Role Phone Elissa Carrero MD Primary Care Provider Reason for Visit * Reason Onset Date Comments Appointment 10/15/2023 Encounter Details Date Type Department Care Team (Late st Contact Info) Description 10/15/2023 Telephone Hematology/Oncology [facility] [address] [place] [address] Dipti Guaman CRNP [address] [place] [address] Appointment Allergies Active Allergy Reactions Criticality Noted Date [...] mRNA, LNP-s, No Pre serve, 2-Dose Series ([employer],) 01/09/2022,06/28/2021,11/10/2020,10/21 Pneumococcal Conjugate Vacc, 13 Valent (Prevnar) [...] encounter Miscellaneous Notes * Telephone Encounter - Hayley Puentes OSA - 10/15/2023 1:13 PM EST Patient scheduled for a PET/CT Scan @ for 12/11/23 @ 9:45am. Patient given prep instructions. documented in this encounter Plan of Treatment Upcoming Encounters Date Type Department Care Team (Late st Contact Info) Description 11/05/2023 10:00 AM EST Laboratory Laboratory [facility] [address] [place] [phone] [facility] [address] [place] [address] 11/05/2023 11:00 AM EST Hem/Onc Treatment Hematology/Oncology Treatment, [address] [place] [address] Tammy, Chair 3 Hem Onc Scen[address] [place] [address] 11/23/2023 10:15 AM EST Office Visit Family Medicine, [facility] [address] [facility] [address] [place] [phone] Elissa Carrero MD [address] [facility] [address] [place] [address] 11/26/2023 12:30 PM EDT Laboratory Laboratory [facility] [address] [place] [phone] [facility] [address] [place] [address] 11/26/2023 1:30 PM EDT Hem/Onc Treatment Hematology/Oncology Treatment, [address] [facility] [place] [address] Tammy, Chair 8 Hem Onc Scenery [address] [place] [address] 12/11/2023 9:45 AM EDT Imaging Radiology [facility] [address] [facility] [facility] [address] 12/17/2023 8:30 AM EDT Laboratory Laboratory [facility] [address] [place] [phone] Tammy [facility] Sc[address] [place] [address] 12/17/2023 9:00 AM EDT Office Visit Hematology/Oncology [facility] [address] [place] [address] Romel Perez MD [address] [place] [address] 12/17/2023 9:30 AM EDT Hem/Onc Treatment Hematology/Oncology Treatment, [address] [facility] [place] [address] Tammy, Chair 8 Hem On[address] [place] [address] 05/13/2024 2:00 PM EDT Office Visit Nephrology, [facility] [address] [facility] [place] [address] Geraldo Sheehan MD [address] [facility] [place] [address] Health Maintenance Due Date Last Done Comments Depression Screening 1957 Albumin/Creatinine Ratio 02/07/1964 CKD PHOS USE SMARTSET 83933 02/07/1964 Zoster Vaccines (2 of 3) 10/29/2013 09/03/2013 COVID-19 Vaccine (2022- season) 2023 01/09/2022, 06/28/2021, 11/10/2020, Additional history exists GFR 04/14/2024 10/15/2023, 04/2024, 08/15/2023, Additional history exists CKD HGB USE SMARTSET 11346 10/15/202410/15, 10/15/2023, 09/24/2023, Additional history exists DTaP,Tdap,and [...] this encounter Medical Devices Implanted Type Area Supervisor Prepress Device Identifier Shelf Expiration Date Model / Serial / Lot Port Implant W/8f Poly Cath - [id number] Implanted:Qty : 1 on 09/21/2023 by Phill Patrick MD at OR [facility] Right: Chest CR BARD : PERIPHERAL VASCULAR [id number] 08/16/2024 [id number] / / [id number] documented as of this encounter Advance Directives [...] the patient have Health Care Power of Buckle Attacher? Yes, not currently available Code Status History [...] the patient have Health Care Power of Buckle Attacher? No Care Teams Sole Rounder Relationship Specialty Start Date End Date Elissa Carrero MD [address] [place] [address] PCP - General Family Medicine 12/29/22 documented as of this encounter
--- OUTSIDE RECORDS SUMMARY | 2023-11-20 05:47 | External Medical Summary | Summary of Care ---
Author Name Unknown Organization [facility] Address [address] [place] [address] Phone [phone] Care Team Providers Care Senior Catering Sales Manager Name Role Phone Elissa Carrero MD Primary Care Provider Reason for Visit * Reason Comments NEW PATIENT * Evaluate & Treat - Unlimited Visits (Within 10 days (routine)) - Authorized Specialty Diagnoses / Procedures Referred By Contac t Referred To Contact Hospice and Palliative Medicine / Palliative Medicine Diagnoses Cancer of left renal pelvis (HCC) Romel Perez MD [address] [place] [id number] Referral ID Status Reason Start Date Expiration Date Visits Requested Visits Authorized [id number] Authorized Specialty Services Required 09/27/[phone] Encounter Details Date Type Department Care Team (Late st Contact Info) Description 10/02/2023 1:00 PM EST Office Visit Palliative Medicine [facility] [address] [place] [address] Jennifer Velasquez MD [address] [place] [address] Cancer related pain*; Cancer of left renal pelvis (HCC); Malignant neoplasm of overlapping sites of bladder (HCC); Palliative care encounter; Advance directive discussed with patient; Nausea Allergies Active Allergy Reactions Criticality Noted Date Comments Lisinopril 07/04/2019 Other reaction(s): Angioedema Piroxicam 10/25/2022 Other reaction(s): muscle spasms documented as of this encounter (statuses as of 10/02/2023) Medications Medication Sig Dispensed Refills Start Date [...] as of this encounter (statuses as of 10/02/2023) Active Problems Problem Noted Date Diagnosed Date [...] as of this encounter (statuses as of 10/02/2023) Resolved Problems Problem Noted Date Diagnosed Date Resolved Date Stage 3a chronic kidney disease 10/27/2022 01/24/2023 Overview: Per CKD protocol documented as of this encounter (statuses as of 10/02/2023) Immunizations Name Administration Dates Next Due COVID-19 mRNA, LNP-s, No Pre serve, 2-Dose Series ([employer]) 01/09/2022,06/28/2021,11/10/2020,10/21 Pneumococcal Conjugate Vacc, 13 Valent (Prevnar) [...] Sign Reading Time Taken Comments Blood Pressure 106/58 10/02/2023 12:33 PM EST ma nual Pulse 59 10/02/2023 12:33 PM EST Temperature 36.3 C (97.3 F) 10/02/2023 12:[address] Respiratory Rate 16 10/02/2023 12:33 PM EST Oxygen Saturation 95% 10/02/2023 12:33 PM EST ra Inhaled Oxygen Concentration - - Weight 78.5 kg (173 lb) 10/02/2023 12:33 PM EST Height 162.6 cm (5' 4.02") 10/02/2023 12:[address] Body Mass Index 29.68 10/02/2023 12:33 PM EST documented in this encounter Functional [...] Progress Notes * Jennifer Velasquez MD - 10/02/2023 10:18 AM EST Images from the original note were not included. OUTPATIENT CONSULT NOTE - Palliative Medicine Name: Drew Rosen Date: 10/02/2023 REASON FOR CONSULT: We have been asked to see this patient for Setting Goals of Care - Palliative and Symptom Management Patient accompanied by none HPI: rDew Rosen is a (an) 78 year old male referred for assistance with pain and symptom mx. This note was copy/pasted from Romel Perez MD, dated on 09/05/23. "78-year-old male with past medical history significant for high blood pressure, hyperlipidemia, GERD BPH, bladder cancer and chronic back pain was recently found to have abnormality on the CT urogram and filling defect of the left renal pelvis. Patient had cystoscopy, left ureteroscopy with possible ablation, left retrograde pyelogram, left ureteral stent placement on 04/04/[address] Alvarado. 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 He underwent robotic laparoscopic nephrectomy with total ureterectomy, bladder cuff 05/23/22 by . Histopathology is consistent with high-grade urothelial carcinoma involving the ureter and renal pelvis, invasive into periureteral adipose tissue and renal pelvis adipose tissue with lymphovascular invasion. Margins of resections are negative. Clinically patient is recovering well from the surgical procedure clinically doing well. He continues to issues with chronic back pain. Patient has stage pT3 NX (no lymph nodes were removed) high-grade urothelial carcinoma, size of thetumor was 7.4 cm and all the resection margins are negative. Tumor invades beyond muscularis into peripelvic fat or renal parenchyma. Patient has very aggressive disease and as per recommendation from NCCN guidelines he received 4 cycles of adjuvant chemotherapy including combination gemcitabine and carboplatin (because of his age,other comorbid condition and has only one kidney). Received last dose of chemotherapy on 09/28/2022. Follow-up PET scan done on 07/20/2023 which unfortunately revealed new nodularity in the left nephrectomy bed with hypermetabolic para-aortic/left common iliac lymph nodes concerning for metastasis. PET scan was reviewed by Nabeel Roa and his impression is most likely patient has metastatic disease and need systemic treatment. He has follow-up CT scan done which shows disease progression. Discussed with the patient in detail about [...] proceed with treatment and signed the consent form." PALLIATIVE ENCOUNTER FROM TODAY'S VISIT: 10/02/2023 Patient with history of renal cancer since March 2022. Bedtime the disease was limited to left renalpelvis. Patient underwent laparoscopic nephrectomy with total ureterectomy in May 2022. Patient was diagnosed with high-grade urothelial carcinoma. Post surgery patient had adjuvant chemotherapy which was completed in September 2022. Recent PET scan in July 2023 showed metastatic disease involving left nephrectomy bed and abdominal lymph nodes. Patient follows Oncology at [facility]. After detailed discussion with Oncology, patient agreed to start immunotherapy. Patient had Keytruda on 09/24/2023. Patient was referred to palliative Medicine for pain and symptom management. Patient has history ofchronic back pain for which he takes gabapentin 1200 milligram in the morning, 600 in the afternoonand 1200 milligram at bedtime. Patient has chronic back pain has been managed with patient's PCP Recently patient started having lower abdominal pain. Pain is located suprapubic radiating to bilateral side and pelvis. Pain started last week after receiving Keytruda. Pain is not associated with urination, bowel movements and eating. Pain is intermittent and worst 5/10. Patient has not seen any changes in urination. Does not have nausea or vomiting. Does not have diarrhea or constipation. Patient tried tramadol 50 mg 3 days ago and 25 mg yesterday. Pain was better relieved with 50 mg tramadol. Patient does not like to take medications. He had past experience with oxycodone and hydrocodone and did not like the way it makes him feel. Currently he has been prescribed tramadol by his PCP. Hetakes tramadol for chronic back pain every couple days as needed. [facility] Currently he gets tramadol through [facility] pharmacy since it is not frequent medication. He does not remember when was the last time he had tramadol refills and how many tablets left. REVIEW OF SYMPTOMS: [Severity scale of each symptom should be based on how the patient feels now.] 1. Pain Assessment: Yes: Severity: , Location: Lower abdomen, Onset: days, Duration: intermittent, Quality: dull/blunt, and Exacerbating/Precipitating Factors: none Current Analgesic Regimen: Yes: Acetaminophen and Adjuvant medications: Gabapentin, Tramadol 2. Shortness of Breath Assessment: None Current Regimen: None 3. Nausea Assessment: Yes: Severity: Current Regimen: Yes: 5-HT3 antagonists: Ondansetron and Antidopaminergics: Prochlorperazine 4. Tiredness/Fatigue Assessment: Yes: Severity: Current Regimen: None 5. Drowsiness Assessment: None 6. Depression Assessment: 1. During the past month, has patient been bothered by feeling down, depressed, or hopeless? No 2. During the past month, has patient been bothered by having little interest or pleasure in doing things? No Current Regimen: none 7. Anxiety Assessment: None Current Regimen: None 8. Anorexia/Lack of Appetite: Yes: Severity: Current Regimen: None 9. Well-being Assessment: Yes: Severity: 10. Constipation Assessment: None Current Regimen: None 11. Insomnia Assessment: None Current Regimen: None 12. Oropharyngeal Secretions or Cough: No Current Regimen: none Rest of the review of systems negative. FUNCTIONALITY: 70% - Ambulation: Reduced, Unable normal job/work / Significant disease. Self-care: Full. Intake: Normal or reduced. Conscious level: Full. ADVANCED DIRECTIVES AND [place] ORDERS FOR LIFE-SUSTAINING TREATMENT: Patient has not completed PAST MEDICAL HISTORY: Past Medical History: Diagnosis Date Bladder cancer (HCC) 04/18/2017 Former smoker 3ppd for 33 years GERD (gastroesophageal reflux disease) Hyperlipidemia Hypertension Vascular disease PAST SURGICAL HISTORY: Past Surgical History: Procedure Laterality Date APPENDECTOMY W/OTHER PROCEDURE BLADDER INSTILLATION, ANTICARCINOGENIC N/A 04/10/2018 BLADDER INSTILLATION OF ANTICARCINOGENIC AGENT performed [place] Altam[place] [facility] [place]DER INSTILLATION, ANTICARCINOGENIC N/A 07/11/2018 BLADDER INSTILLATION OF ANTICARCINOGENIC AGENT performed by Dean Altamirano MD [place] [facility] [place]STO/URETERO W/LITHOTRIPSY Left 09/06/2018 CYSTOURETHROSCOPY URETEROSCOPY WITH LITHOTRIPSY AND STENT INSERTION performed [place] Tawana Munoz [place] [facility] [place] N/A 01/17/2023 CYSTOURETHROSCOPY performed by Nabeel Alvarado MD [place] [facility] [place] N/A 08/29/2023 CYSTOURETHROSCOPY performed by Nabeel Alvarado MD [place] [facility] [place]/INSERTION OF STENT Left 11/13/2017 CYSTOURETHROSCOPY WITH INSERTION URETERAL STENT performed by Dean Altamirano MD [place] [facility] [place]/INSERTION OF STENT Left 04/10/2018 CYSTOURETHROSCOPY WITH INSERTION URETERAL STENT performed by Dean Altamirano MD [place] [facility] [place]STOS[place]/INSERTION OF STENT Left 07/11/2018 CYSTOURETHROSCOPY WITH INSERTION URETERAL STENT performed by Dean Altamirano MD [place] [facility] [place]/INSERTION OF STENT Left 05/23/2022 CYSTOURETHROSCOPY WITH INSERTION URETERAL STENT performed by Nabeel Alvarado MD [place] [facility] [place]STOS[place]/TREAT LGE BLADDER TUMOR N/A 11/13/2017 CYSTOURETHROSCOPY WITH FULGURATION LARGE BLADDER TUMOR performed by Dean Altamirano MD [place] [facility] [place]/TREAT LGE BLADDER TUMOR N/A 04/10/2018 CYSTOURETHROSCOPY WITH FULGURATION LARGE BLADDER TUMOR performed by Dean Altamirano MD [place] [facility] [place]STOS[place]/TREAT LGE BLADDER TUMOR N/A 07/11/2018 CYSTOURETHROSCOPY WITH FULGURATION LARGE BLADDER TUMOR performed by Dean Altamirano MD [place] [facility] [place]STOS[place]/TREAT LGE BLADDER TUMOR Left 04/04/2022 CYSTOURETHROSCOPY WITH FULGURATION LARGE BLADDER TUMOR performed by Nabeel Alvarado MD at [place] [facility] [place] CYSTOURETERO W/BIOPSY Left 11/13/2017 CYSTOURETHROSCOPY URETEROSCOPY WITH BIOPSY AND OR FULGURATION LESION performed by Dean Altamirano MD [place] [facility] [place] CYSTOURETERO W/BIOPSY Left 09/06/2018 CYSTOURETHROSCOPY URETEROSCOPY WITH BIOPSY AND OR FULGURATION LESION performed by Tawana Munoz MD [place] [facility] [place] CYSTOURETERO W/BIOPSY Left 04/04/2022 CYSTOURETHROSCOPY URETEROSCOPY WITH BIOPSY AND OR FULGURATION LESION performed by Nabeel Alvarado MD [place] [facility] [place] FLUORO PYELOGRAM RETROGRADE Left 11/13/2017 UROGRAHY, RETROGRADE, WITH OR WITHOUT KUB performed by Dean Altamirano MD [place] [facility] [place]O PYELOGRAM RETROGRADE Left 04/10/2018 UROGRAHY, RETROGRADE, WITH OR WITHOUT KUB performed by Dean Altamirano MD [place] [facility] [place]O PYELOGRAM RETROGRADE Left 07/11/2018 UROGRAHY, RETROGRADE, WITH OR WITHOUT KUB performed by Dean Altamirano MD [place] [facility] [place]O PYELOGRAM RETROGRADE Left 09/06/2018 UROGRAHY, RETROGRADE, WITH OR WITHOUT KUB performed by Tawana Munoz MD [place] [facility] [place] INFORMATION leg stents per pt INFORMATION Left left forearm repair was done in [facility] ACC DEV;5 YRS/OLDER Right 09/21/2023 INSERT TUNNELED CENTRAL VENOUS ACCESS WITH SUBQ PORT performed by Phill Patrick MD at OR [facility] [place] REMOVE K/URETER Left 05/23/2022 ROBOTIC LAPAROSCOPIC NEPHRECTOMY WITH TOTAL URETERECTOMY performed by Nabeel Alvarado MD [place] [facility] [place]ISCELLANEOUS ORDER ([facility] ONLY) 2011 lumbar surgery . Multipel back surgeries in past REMOVAL OF KIDNEY STONE, OVER 2CM N/A 11/13/2017 PERCUTANEOUS NEPHROSTOLITHOTOMY OVER 2CM performed by Dean Altamirano MD [place] [facility] [place] REMOVAL OF PROSTATE (TURP) N/A 11/13/2017 TRANSURETHRAL RESECTION PROSTATE ELECTROSURGICAL performed by Dean Altamirano MD [place] [facility] [place] FAMILY HISTORY: Family History Problem Relation Age of Onset Other (stomach aneurysm) Mother Heart attack Brother Other (stomach aneurysm) Aunt (Unspecified) Paternal Family History: noncontributory SOCIAL HISTORY: Social History Socioeconomic History Marital status: Tobacco Use Smoking status: Former Packs/day: 3.00 Years: 33.00 Additional pack years: 0.00 Total pack years: 99.00 Types: Cigarettes Quit date: 09/17/2001 Years since quittin.0 Smokeless tobacco: Never Vaping Use Vaping Use: Never used Substance and Sexual Activity Alcohol use: Yes Comment: rarely Drug use: No Family Support: Spouse: Primary PSYCHOSOCIAL ASSESSMENT: At times, I worry I will be a burden to my family: A little bit Pertinent Social Factors: Lives with . for 58 yrs. They have a daughter. 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 He used to smoke 3 packs per day for about 20 years. Drinks alcohol socially. Denies h/o drug abuse Current Outpatient Medications Medication Sig Dispense Refill [...] as needed for Nausea. 30 Tablet 0 Modafinil 100 MG Oral Tablet (Provigil) Take 1 Tablet by mouth as needed (fatigue). 90 Tablet 1 traMADol HCl 50 MG Oral Tablet (Ultram) [...] Take 1 Tablet by mouth every evening. No current facility-administered medications for this visit. ALLERGIES: Lisinopril and Piroxicam PHYSICAL EXAMINATION: Constitutional: no acute distress HEENT: normal: normocephalic, atraumatic; no masses, tenderness, or adenopathy Eyes: sclera and conjunctiva normal Chest: normal respiratory effort Abdomen: soft, normal bowel sounds, suprapubic tenderness + Musculoskeletal: (-) negative Extremities: no clubbing, cyanosis, or edema, otherwise grossly normal, warm, and dry Neuro: alert, oriented to person, place, and time Psych: normal mood and affect LABS REVIEWED: Yes. 09/24/2023 UN 6 - 20 mg/dL 25 High Creatinine 0.6 - 1.2 mg/dL 1.9 High Estimated Glomerular Filtration Rate >=60 mL/min 35 Low Comment: eGFR is calculated based on the CKD-EPI 2020 equation Sodium 135 - 146 mmol/L 139 Potassium 3.5 - 5.1 mmol/L 4.4 Chloride 98 - 107 mmol/L 103 CO2 22 - 32 mmol/L 25 Anion Gap 7 - 15 mmol/L 11 Glucose 70 - 120 mg/dL 132 High Albumin 3.8 - 5.0 g/dL 4.4 AST 10 - 50 U/L 16 Alkaline Phosphatase 35 - 130 U/L 76 Bilirubin, Total <=1.2 mg/dL 0.4 Calcium 8.4 - 10.2 mg/dL 9.3 Protein 6.0 - 8.3 g/dL 7.0 ALT 10 - 50 U/L 10 WBC 4.00 - 10.80 K/uL 6.81 RBC 4.50 - 5.25 M/uL 4.38 HGB 14.0 - 16.8 g/dL 13.5 Low HCT 40.0 - 48.4 % 42.0 MCV 82.0 - 99.5 fL 95.9 MCH 27.0 - 34.0 pg 30.8 MCHC 32.0 - 36.0 g/dL 32.1 RDW 11.5 - 15.5 % 13.2 PLT 140 - 400 K/uL 220 MPV 6.6 - 11.1 fL 10.1 I reviewed and interpreted lab data independently. Patient has normal CBC and liver function. He has decreased renal function, stable creatinine 1.9 since last 2 months IMAGING REVIEWED: Yes. CT abdomen pelvis on 08/31/2023 showed IMPRESSION 1. Worsening nodular density left nephrectomy bed representing local recurrence. Worsening lymphadenopathy representing metastasis. 2. Indeterminate right lung nodules. Metastasis not excluded. Consider short- term follow-up CT scanof the chest in 3 months. PET-CT on 07/20/2023 showed IMPRESSION 1. New nodularity in the left nephrectomy bed, suspicious for local recurrence. 2. Enlarged and hypermetabolic distal paraaortic/left common iliac nodes, concerning for heather metastases. ASSESSMENT/PLAN: Drew Rosen is a/an 78 year old male referred for consultation to Palliative Medicine with the primary diagnosis of: Cancer: Metastatic renal cell cancer Secondary Diagnoses are hypertension, hyperlipidemia, BPH, chronic back pain, chronic kidney disease Encounter for palliative care Reviewed Palliative medicine involvement for symptom assessment and management related to serious illness or related to disease directed treatment. We discussed our involvement as support, corodination, advance care planning discussion and advance directives discussion. Our role remains as a oracle hrms consultant and we work along with Primary team involved in care planning or other medical transcription editor.. We remain available for any questions or concerns at office number [phone] from 8 am to 4 pm. In case of any urgent need, we have production worker provider who can be reached by calling hospital ethylene oxide panelboard operator at [phone]. Goals of care/advance directive/advance care planning Patient had history of renal cancer status post left nephrectomy and adjuvant chemotherapy till September 2022. In July 2023 patient is diagnosed with metastatic renal cancer. Patient was recently started with immunotherapy, Keytruda and received 1st dose on 09/24/2023. Next dose scheduled on 10/15/2023. Patient follows Oncology at [facility]. Patient was referred to palliative Medicine for pain and symptom management. Patient does not have written advance directives. He did share that he and his has started discussing and plan to complete the document. He he tells me that he has a copy at home. Encouraged him to complete and bring the copy for record. Chronic back pain Cancer-related lower abdominal pain Chronic kidney disease Opioid Risk Tool - Revised (ORT-R) The revised ORT is a validated screening tool for the risk of developing Opioid Use Disorder (OUD) in patients on or being considered for opioid therapy. This tool should be administered to patients upon initial visit prior to beginning or continuing opioid therapy for pain management. A score of 2 or lower indicates low risk for future opioid use disorder; a score of >/= 3 indicates a high risk for opioid use disorder. Nik each box that applies Yes NO Family history of substance abuse Alcohol 0 0 Illegal drugs 0 0 Rx drugs 0 0 Personal history of substance abuse Alcohol 1 0 Illegal drugs 0 0 Rx drugs 0 0 Age between 16--45 years 0 0 Psychological disease ADD, OCD, bipolar, schizophrenia 0 0 Depression 0 0 Scoring totals Mary Ann Chau, Lexie Pichardo, Jayson Atkins, Jose Suarez, Cecil Kirkland. (2019) Development of the Revised Opioid Risk Tool to Predict Opioid Use Disorder in Patients with Chronic Nonmalignant Pain The Journal of Pain 0 (0) 1-10. Available online: https://www.jpain.org/article/K1353-0885(98)83665-6/fulltext Accessed February 24, 2019. Score is 1: low risk Plan to continue gabapentin and Tylenol as prescribed by PCP for chronic back pain Lower abdominal pain, suprapubic pain-uncertain etiology, but it does coincide after starting Keytruda No other associated symptoms, aggravating or relieving factors Patient does not like to use opioids, bad feelings with oxycodone and hydrocodone in the past Given chronic kidney disease, advised not to take NSAIDs We would detailed discussion regarding uncertainty of new onset suprapubic pain. Plan to continue to observe pain and other associated symptoms if any. Since patient does not like changes in his current medications, advised to start taking tramadol asscheduled based Patient is agreeable to take tramadol 50 mg tablet, half tablet twice a day for few days and then if tolerated increase it to 3 times a day Continue laxatives Patient is unsure how many tramadol tablets left at home. He will call palliative Medicine office if he needs prescription prior to next palliative telephonic visit Return visit in 9 days on 10/11 as telephonic visit In the future patient does have an option of seeing palliative care at [facility] or [place] aspreferred location. We will continue to address this plan and future visits. Jennifer Velasquez MD 10/02/2023 10:18 AM documented in this encounter Nursing Notes * Filiberto Biggs, MED ASSIST - 10/02/2023 12:33 PM EST Patient was instructed to not get up on the exam table/exam chair until directed and assisted by their provider; patient is to remain seated in the chair/ wheelchair/ exam table/ exam chair for fall prevention and safety reasons. Patient is aware to have assistance to step down off exam table/exam chair with personnel. Patient voiced full comprehension of instructions. Room 7 documented in this encounter Plan of Treatment Upcoming Encounters Date Type Department Care Team (Late st Contact Info) Description 10/11/2023 2:00 PM EST Telemedicine Palliative Medicine [facility] [address], [place] [id number] Jennifer Velasquez MD [address], [place] [id number] 10/15/2023 11:00 AM EST Laboratory Laboratory [facility] [place] [place] [address] [facility] [place] [id number] Tammy, Lab Scenery [address] [facility] [place] [address] 10/15/2023 11:30 AM EST Office Visit Hematology/Oncology [facility] [place] [address] [facility] [place] [address] Dipti Guaman CRNP [address] [place] [address] 10/15/2023 12:00 PM EST Hem/Onc Treatment Hematology/Oncology Treatment, [place] [address] [place] [address] Tammy, Chair 4 Hem Onc Scenery [address] [facility] [place] [address] 11/23/2023 10:15 AM EST Office Visit Family Medicine, [facility] [address] [facility] [place] [address] [place] [phone] Elissa Carrero MD [address] [facility] [place] [address] [place] [address] 05/13/2024 2:00 PM EDT Office Visit Nephrology[facility]ianluca [address] [place] [address] Geraldo Sheehan MD [address] [place] [address] Scheduled Referrals Name Type Priority Associated Diagnoses Orde r Schedule PALLIATIVE CARE REFERRAL OP Referral Within 10 days (routine) Cancer of left renal pelvis (HCC) Ordered: 09/27/2023 Health Maintenance Due Date Last Done Comments Depression Screening 1957 Albumin/Creatinine Ratio 02/07/1964 CKD PHOS USE SMARTSET 09897 02/07/1963 Zoster Vaccines (2 of 3) 10/29/2013 09/03/2013 COVID-19 Vaccine ( season) 2023 01/09/2022, 06/28/2021, 11/10/2020, Additional history exists GFR 03/24/2024 09/24/2023, 07/19, 07/17/2023, Additional history exists CKD HGB USE SMARTSET 23037 09/24/202409/24, 09/24/2023, 08/15/2023, Additional history exists DTaP,Tdap,and [...] this encounter Medical Devices Implanted Type Area Assistant Merchandiser Device Identifier Shelf Expiration Date Model / Serial / Lot Port Implant W/8f Poly Cath - [id number] Implanted:Qty : 1 on 09/21/2023 by Phill Patrick MD at OR [facility] Right: Chest CR BARD : PERIPHERAL VASCULAR [id number] 08/16/2024 [id number] / / [id number] documented as of this encounter Visit Diagnoses Diagnosis Cancer related pain- Primary Neoplasm related pain (acute) (chronic) Cancer of left renal pelvis (HCC) Malignant neoplasm of overlapping sites of bladder (HCC) Malignant neoplasm of other specified sites of bladder Palliative care encounter Encounter for palliative care Advance directive discussed with patient Other specified counseling Nausea Nausea alone documented in this encounter Advance Directives Latest [...] the patient have Health Care Power of Inspector Plug Seam? Yes, not currently available Code Status History [...] the patient have Health Care Power of Inspector Plug Seam? No Care Teams Senior Catering Sales Manager Relationship Specialty Start Date End Date Elissa Carrero MD [address] [address] PCP - General Family Medicine 12/29/22 documented as of this encounter
--- OUTSIDE RECORDS SUMMARY | 2023-11-20 05:47 | External Medical Summary ---
Author Name Unknown Address Unknown Organization [id number]:[facility] [address] [place] [address] Laboratory Report Ordering Provider Test Date Status PENELOPE WALLACE 10/15/2023 10:55:08 Final Observation Date Value Abnormality Reference (Units ) Status BUN 10/15/2023 10:55:08 28 Above high normal 6-20 (mg/dL) Final Creatinine 10/15/2023 10:55:08 2.0 Above high normal 0.6-1.2 (mg/dL) Final Glomerular filtration rate/1.73 sq M.predicted [Volume Rate/Area] in Serum, Plasma or Blood by Creatinine-based formula (CKD-EPI) 10/15/2023 10:55:08 34 Below low normal >=60 (mL/min) Final eGFR is calculated based on the CKD-EPI 2020 equation SODIUM 10/15/2023 10:55:08 140 135-146 (m mol/L) Final Potassium 10/15/2023 10:55:08 4.6 3.5-5.1 (m mol/L) Final Cl 10/15/2023 10:55:08 103 98-107 (mm ol/L) Final CO2 10/15/2023 10:55:08 25 22-32 (mmo l/L) Final Anion gap 10/15/2023 10:55:08 12 7-15 (mmol /L) Final Glucose 10/15/2023 10:55:08 104 70-120 (mg /dL) Final Albumin 10/15/2023 10:55:08 4.6 3.8-5.0 (g /dL) Final AST (Aspartate aminotransferase) 10/15/2023 10:55:08 18 10-50 (U/L) Final Alk Phos 10/15/2023 10:55:08 79 35-130 (U/ L) Final Bilirubin, Total 10/15/2023 10:55:08 0.3 <=1 .2 (mg/dL) Final Calcium 10/15/2023 10:55:08 9.7 8.4-10.2 ( mg/dL) Final Protein 10/15/2023 10:55:08 7.3 6.0-8.3 (g /dL) Final ALT (Alanine aminotransferase) 10/15/2023 10:55:08 11 10-50 (U/L) Final Performing Location [facility] [address] [place] [address]
--- OUTSIDE RECORDS SUMMARY | 2023-11-20 05:48 | External Medical Summary | Summary of Care ---
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] Procedures INSER TUNN ACC DEV;5 YRS/OLDER INSERT TUNNELED CENTRAL VENOUS ACCESS WITH SUBQ PORT Referral ID Status Reason Start Date Expiration Date Visits Re quested Visits Authorized [id number] Encounter Details Date Type Department Care Team (Latest Contact Info) Description 09/21/2023 8:50 AM EST - 09/21/2023 12:30 PM EST Hospital Encounter OR [facility], Operating Room, [facility] - 4th Floor [address] [address] Phill Patrick [facility] [address] [facility] [address] Discharge Disposition: Home - Self Care Allergies Active Allergy Reactions Criticality Noted Date Comments Lisinopril 07/04/2019 Other reaction(s): Angioedema Piroxicam 10/25/2022 Other reaction(s): muscle spasms documented as of this encounter (statuses as of 09/22/2023) Medications Medication Sig Dispensed Refills Start Date [...] as of this encounter (statuses as of 09/22/2023) Active Problems Problem Noted Date Diagnosed Date [...] as of this encounter (statuses as of 09/22/2023) Resolved Problems Problem Noted Date Diagnosed Date Resolved Date Stage 3a chronic kidney disease 10/27/2022 01/24/2023 Overview: Per CKD protocol documented as of this encounter (statuses as of 09/22/2023) Immunizations Name Administration Dates Next Due COVID-19 mRNA, LNP-s, No Pre serve, 2-Dose Series (MinuteKey) 01/09/2022,06/28/2021,11/10/2020,10/21 Pneumococcal Conjugate Vacc, 13 Valent (Prevnar) [...] Sign Reading Time Taken Comments Blood Pressure 138/97 09/21/2023 12:23 PM EST Pulse 60 09/21/2023 12:23 PM EST Temperature 36.2 C (97.2 F) 09/21/2023 12:[address] Respiratory Rate 16 09/21/2023 12:23 PM EST Oxygen Saturation 97% 09/21/2023 12:23 PM EST Inhaled Oxygen Concentration - - [...] as of this encounter Progress Notes * Phill Patrick MD - 09/21/2023 11:48 AM EST [address] [address] OUTPATIENT SURGERY DISCHARGE SUMMARY NOTE Name: Drew Rosen Location: [facility]/MD Date: 09/21/2023 Time: 11:49 AM Surgery Date: 09/21/2023 Procedure: Procedure(s): INSERT TUNNELED CENTRAL VENOUS ACCESS WITH SUBQ PORT Right Surgeon: Surgeon(s): Phill Patrick MD Discharge Diagnosis: carcinoma After examination of this patient, I have determined he is ready for discharge to home when the patient meets criteria. Discharge instructions were given to the patient. documented in this encounter H&P Notes * Phill Patrick MD - 09/21/2023 10:05 AM EST HISTORY & PHYSICAL - Interventional Radiology Service [address] [address] Name: Drew Rosen Location: [facility]/MD Date: 09/21/2023 Time: 10:05 AM CHIEF COMPLAINT: Port placement for chemotherapy HISTORY OF PRESENT ILLNESS: Cancer, left renal pelvis, bladder Past Medical History: Diagnosis Date Bladder cancer (HCC) 04/18/2017 Former smoker 3ppd for 33 years GERD (gastroesophageal reflux disease) Hyperlipidemia Hypertension Vascular disease Past Surgical History: Procedure Laterality Date APPENDECTOMY W/OTHER PROCEDURE BLADDER INSTILLATION, ANTICARCINOGENIC N/A 04/10/2018 BLADDER INSTILLATION OF ANTICARCINOGENIC AGENT performed by Dean Altamirano MD at [place] [facility] BLADDER INSTILLATION, ANTICARCINOGENIC N/A 07/11/2018 BLADDER INSTILLATION OF ANTICARCINOGENIC AGENT performed by Dean Altamirano MD at [place] [facility] CYSTO/URETERO W/LITHOTRIPSY Left 09/06/2018 CYSTOURETHROSCOPY URETEROSCOPY WITH LITHOTRIPSY AND STENT INSERTION performed by Tawana Mnuoz MD [facility] CYSTOSCOPY N/A 01/17/2023 CYSTOURETHROSCOPY performed by Nabeel Alvarado MD at [place] [facility] CYSTOSCOPY N/A 08/29/2023 CYSTOURETHROSCOPY performed by Nabeel Alvarado MD at OR [facility] CYSTOSCOPY/INSERTION OF STENT Left 11/13/2017 CYSTOURETHROSCOPY WITH INSERTION URETERAL STENT performed by Dean Altamirano MD at OR [facility] CYSTOSCOPY/INSERTION OF STENT Left 04/10/2018 CYSTOURETHROSCOPY WITH INSERTION URETERAL STENT performed by Dean Altamirano MD at OR [facility] CYSTOSCOPY/INSERTION OF STENT Left 07/11/2018 CYSTOURETHROSCOPY WITH INSERTION URETERAL STENT performed by Dean Altamirano MD at OR [facility] CYSTOSCOPY/INSERTION OF STENT Left 05/23/2022 CYSTOURETHROSCOPY WITH INSERTION URETERAL STENT performed by Nabeel Alvarado MD at OR [facility] CYSTOSCOPY/TREAT LGE BLADDER TUMOR N/A 11/13/2017 CYSTOURETHROSCOPY WITH FULGURATION LARGE BLADDER TUMOR performed by Dean Altamirano MD at OR [facility] CYSTOSCOPY/TREAT LGE BLADDER TUMOR N/A 04/10/2018 CYSTOURETHROSCOPY WITH FULGURATION LARGE BLADDER TUMOR performed by Dean Altamirano MD at OR [facility] CYSTOSCOPY/TREAT LGE BLADDER TUMOR N/A 07/11/2018 CYSTOURETHROSCOPY WITH FULGURATION LARGE BLADDER TUMOR performed by Dean Altamirano MD at OR [facility] CYSTOSCOPY/TREAT LGE BLADDER TUMOR Left 04/04/2022 CYSTOURETHROSCOPY WITH FULGURATION LARGE BLADDER TUMOR performed by Nabeel Alvarado MD at OR [facility] CYSTOURETERO W/BIOPSY Left 11/13/2017 CYSTOURETHROSCOPY URETEROSCOPY WITH BIOPSY AND OR FULGURATION LESION performed by Dean Altamirano MD at OR [facility] CYSTOURETERO W/BIOPSY Left 09/06/2018 CYSTOURETHROSCOPY URETEROSCOPY WITH BIOPSY AND OR FULGURATION LESION performed by Tawana Munoz MD at OR [facility] CYSTOURETERO W/BIOPSY Left 04/04/2022 CYSTOURETHROSCOPY URETEROSCOPY WITH BIOPSY AND OR FULGURATION LESION performed by Nabeel Alvarado MD at OR [facility] FLUORO PYELOGRAM RETROGRADE Left 11/13/2017 UROGRAHY, RETROGRADE, WITH OR WITHOUT KUB performed by Dean Altamirano MD at OR [facility] FLUORO PYELOGRAM RETROGRADE Left 04/10/2018 UROGRAHY, RETROGRADE, WITH OR WITHOUT KUB performed by Dean Altamirano MD at OR [facility] FLUORO PYELOGRAM RETROGRADE Left 07/11/2018 UROGRAHY, RETROGRADE, WITH OR WITHOUT KUB performed by Dean Altamirano MD at OR [facility] FLUORO PYELOGRAM RETROGRADE Left 09/06/2018 UROGRAHY, RETROGRADE, WITH OR WITHOUT KUB performed by Tawana Munoz MD at [place] [facility] INFORMATION leg stents per pt INFORMATION Left left forearm repair was done in [place] LAPARO REMOVE K/URETER Left 05/23/2022 ROBOTIC LAPAROSCOPIC NEPHRECTOMY WITH TOTAL URETERECTOMY performed by Nabeel Alvarado MD at OR [facility] MISCELLANEOUS ORDER ([facility] ONLY) 2012 lumbar surgery . Multipel back surgeries in past REMOVAL OF KIDNEY STONE, OVER 2CM N/A 11/13/2017 PERCUTANEOUS NEPHROSTOLITHOTOMY OVER 2CM performed by Dean Altamirano MD at OR [facility] REMOVAL OF PROSTATE (TURP) N/A 11/13/2017 TRANSURETHRAL RESECTION PROSTATE ELECTROSURGICAL performed by Dean Altamirano MD at [place] [facility] Social History Socioeconomic History Marital status: Spouse [...] on file Housing Stability: Not on file Family History Problem Relation Age of Onset Other (stomach aneurysm) Mother Heart attack Brother Other (stomach aneurysm) Aunt (Unspecified) Paternal Review of patient's allergies indicates: Allergen Reactions Lisinopril Other reaction(s): Angioedema Piroxicam Other reaction(s): muscle spasms Current Facility-Administered Medications Medication Dose Route Frequency Provider Last Rate Last Admin isolyte-S pH 7.4 infusion Intravenous Continuous Phill Patrick MD 10 mL/hr at 09/21/23918 New Bag at 09/21/23 09 REVIEW OF SYSTEMS: Constitutional: (-) fever chills sweats or weight loss Cardiovascular: (-) negative: no chest pain, dyspnea, syncope, or palpitations Pulmonary: (-) negative: no cough, wheezing, or shortness of breath Abdominal/GI: (-) negative: no pain, heartburn, dysphagia, bleeding, change in bowel habits, nauseaor vomiting OBJECTIVE: There were no vitals taken for this visit. PHYSICAL EXAM: Constitutional: no acute distress CV: normal rate and rhythm, no murmur, gallops or rub Chest: normal respiratory effort, lungs clear to auscultation and percussion Abdomen: normal: soft, bowel sounds normal, no masses, tenderness or organomegaly LABS: CBC Results: PT INR Results: Results for orders placed or performed in visit on 11/12/17 PT/INR Result Value Ref Range Prothrombin Time 13.1 11.5 - 14.6 seconds INR 1.02 0.87 - 1.17 BUN Results: Lab Results Component Value Date/Time BUN - [facility] 33 (H) 08/15/2023 11:01 AM BUN - [facility] 31 (H) 07/17/2023 10:29 AM BUN - [facility] 27 (H) 04/09/2023 10:50 AM BUN - [facility] 36 (H) 09/04/2018 01:10 PM BUN - [facility] 23 (H) 07/02/2018 12:09 PM BUN - [facility] 26 (H) 02/28/2018 12:27 PM BUN/CREAT RATIO-OUTSIDE LAB 22.0 (H) 08/28/2017 12:05 PM BUN/CREAT RATIO-OUTSIDE LAB 30.0 (H) 07/23/2017 02:28 PM BUN/CREAT RATIO-OUTSIDE LAB 20.0 03/29/2017 11:33 AM Creatinine Results: Lab Results Component Value Date/Time CREATININE - [facility] 1.9 (H) 08/15/2023 11:01 AM CREATININE - [facility] 2.0 (H) 07/17/2023 10:29 AM CREATININE - [facility] 1.8 (H) 04/09/2023 10:50 AM CREATININE - [facility] 1.4 (H) 09/04/2018 01:10 PM CREATININE - [facility] 1.3 (H) 07/02/2018 12:09 PM CREATININE - [facility] 1.3 (H) 02/28/2018 12:27 PM CREATININE, BODY FLUID - [facility] 2.0 05/25/2022 10:56 AM CREATININE, BODY FLUID - [facility] 2.0 05/24/2022 11:48 AM Potassium Results: Lab Results Component Value Date/Time POTASSIUM - [facility] 4.4 08/15/2023 11:01 AM POTASSIUM - [facility] 4.9 07/17/2023 10:29 AM POTASSIUM - [facility] 4.3 04/09/2023 10:50 AM POTASSIUM - [facility] 3.5 09/04/2018 01:10 PM POTASSIUM - [facility] 3.7 07/02/2018 12:09 PM POTASSIUM - [facility] 3.5 02/28/2018 12:27 PM POTASSIUM, WHOLE BLOOD - [facility] 3.4 (L) 05/23/2022 05:35 PM POTASSIUM, WHOLE BLOOD - [facility] 3.3 (L) 05/23/2022 03:54 PM INFORMED CONSENT: Yes PRE-SEDATION ASSESSMENT IMPRESSION/PLAN: Port placement under ultrasound guidance, right internal jugular Phill Patrick MD documented in this encounter Nursing Notes * Wendy Garland RN - 09/21/2023 12:29 PM EST [address] [address] SameDay Surgery Discharge Note Name: Drew Rosen Date: 09/21/2023 Time: 12:29 PM Discharge Disposition: Home Responsible adult as escort home: [facility] [place] Transport Mode: Ambulatory Accompanied by: Keyanna Garland RN To: Car Belongings with patient: Yes Patient meets criteria to be transferred or discharged. * Eliezer Templeton RN - 09/21/2023 10:30 AM EST Pt condition was reassessed by Dr. Phill Patrick immediately prior to start of moderate sedation and procedure. documented in this encounter OR Notes * Operative Report Brief - Phill Patrick MD - 09/21/2023 11:43 AM EST PROCEDURE NOTE - Interventional Radiology [facility]-[address] [address] Name: Drew Rosen Location: OR [facility]/OR Date: 09/21/2023 Time: 11:43 AM PROCEDURE: right IJ port placement DOCK COORDINATOR: Celina ANESTHESIA: conscious sedation COMPLICATIONS: none SPECIMEN: none ESTIMATED BLOOD LOSS: negligible FINDINGS: right IJ patent. Port placed cavoatrial junction documented in this encounter Miscellaneous Notes * Sedation Note - Phill Patrick MD - 09/21/2023 11:49 AM EST Discharge Date: 09/21/2023 Provider: Celina GARRETT The information below provides you with the instructions and the list of medications you need to betaking following discharge from the hospital. If you have any questions, please ask before leaving.Please carry this letter with you when you see your doctor in the clinic. If you have questions, you can reach us at the numbers above. SPECIAL INSTRUCTIONS Mediport Insertion (Implanted Central Venous Access) A Mediport is a sealed chamber covered by a silicone disc that is surgically placed in a pocket under the skin on the upper chest, just below the collarbone. This chamber connects to a flexible tube that goes into a large vein in the neck. The tip is near the heart. The port provides direct access to the bloodstream and can be used in drawing blood samples and giving intravenous fluids and medications. Some ports allow CT scan injections; these ports are referred to as "Power Ports." The port will be visible only as a small raised area beneath your skin. Home Care If you experience pain or discomfort at the site you may use a cold pack on the site and/or take acetaminophen (Tylenol) or your preferred pain medicine as directed. Avoid contact sports or any activity that may cause blunt force impact to the port area, as it may damage your port. Avoid strenuous activity for 24 to 48 hours after the procedure. Do not lift anything heavier than 10 pounds for 3 days after the procedure. Gradually increase your activity after 24 to 48 hours after the procedure. No dressing changes or wound care are needed at the insertion site. Your wound is closed with sutures on the inside and then sealed on the outside with a special "skin glue" called Dermabond (a surgical glue). Depending on your physician's preference, there may also be "steri strips" applied. It isvery important to let these special bandages fall off on their own. Please do not scrub or pull these bandages off. You may gently wash the area with soap and water. Depending on your physician's preference, there may also be gauze and Tegaderm (clear) bandage overthe Mediport insertion site. You may remove this bandage in 24 hours. You may shower in 24 hours. Gently wash the area and pat it dry. Please DO NOT take a bath, soak in a hot tub, or swim until the wound is completely healed. Your port must be accessed and flushed/heparinized every 30 days if it is not currently being used. When to Call Interventional Radiology Call Interventional Radiology right away if you have any of the following: Fever above 100 degrees Fahrenheit Increased bleeding, redness, swelling, warmth, or discharge at the incision site. Constant or increasing pain, numbness, coldness, or tingling around the incision area. Vomiting or nausea that does not go away If at any time you experience any of the following or feel you are having a medical emergency, [id number] for emergency assistance. Chest Pain Sudden, severe shortness of breath Rapid heart rate Sudden onset of weakness Do not smoke or use tobacco products in any way! If you feel suicidal or homicidal, please call the crisis hotline at 8-873-035-WMJS ([phone]) MODERATE SEDATION You may have received medication that made you comfortable/sedated you during your procedure. This is considered moderate sedation. This medication was given to relax you. You may also not remember having the procedure done. It may take up to 24 hours for this medication to be out of your system. Because of this, you should observe the following for the next 24 hours: Do not drink alcohol or take depressant drugs. Do not operate any type of machinery that requires hand-eye coordination. Do not sign any legal papers or documents. Do not make any financial decisions. You should be in the presence of an adult for the remainder of the day. If you are experiencing any problems related to your procedure, you should contact the Interventional Radiology physician unless otherwise directed. Driving: You may resume driving 2 days . Diet: You may resume your current diet as tolerated. Return to work or school: You may return to school or work 2 days after the procedure, unless otherwise instructed by the physician. * Sedation Note - Phill Patrick MD - 09/21/2023 11:44 AM EST SEDATION NOTE Indication: The patient is a(n) 78 year old male with left renal pelvis carcinoma. Location: right chest Sedating physician: Celina Procedure physician: Celina Procedure(s) Performed: port placement, right chest. Sedation was accomplished using versed & fentanyl a. Any and all anesthetic medications were delivered under the direct supervision of a provider. Actual level of sedation: Moderate Patient tolerated procedure well. Vitals and oxygen saturations stable throughout. Adverse Outcome(s) during the procedure: None Post Sedation Evaluation: Cardiovascular status: acceptable and BP returned to baseline Level of consciousness: awake and alert Airway patency: patent Distress - NAD Hydration status - well hydrated Nausea/vomiting - present Pain Evaluation Pain Assessment Flowsheet Row Most Recent Value Pain Assessment Scale [facility] Adult Scale 0-10 Pain Score 0 (no pain) Vital Signs: BP: 148/86 (09/21 1134) Pulse: 52 (09/21 1134) Resp: 7 (09/21 1134) SpO2: 93 % (09/21 1134) I have personally examined the patient, prescribed the necessary medications as charted, and certify that Drew Rosen is recovered for safe discharge from my face to face care. * Pre-Sedation Assessment - Phill Patrick MD - 09/21/2023 10:03 AM EST PRE-SEDATION ASSESSMENT PRE-SEDATION ASSESSMENT: Port Placement Under Us Guidance,Likely Right Level of sedation planned: Moderate Patient's allergies reviewed: Yes H&P Review / Interval Note Documentation: There is no H&P on file. Difficulty with sedation / anesthesia: No Sleep apnea: No History of snoring: Yes History of difficult intubation: No Decreased ROM neck flexion/extension: No Tracheal deviation: No Decreased ability to open mouth / TMJ: No Loose teeth / dentures / partial: Yes Congenital deformities / abnormalities: No Dysphagia: No Chest: Clear Heart: Regular Rhythm Adequate Vascular Access: Yes ASA Risk Stratification (Select One): ASA 2 - Mild systemic disease, no functional limitations The patient was identified and the procedure verified: Yes The patient was reevaluated immediately prior to the sedation: 09/21/2023 10:05 AM documented in this encounter Plan of Treatment Upcoming Encounters Date Type Department Care Team (Late st Contact Info) Description 09/24/2023 1:00 PM EST Laboratory Laboratory [facility] [place] [address] [facility] [place] [phone] [address] [place] [address] 09/24/2023 2:00 PM EST Hem/Onc Treatment Hematology/Oncology Treatment, [place] [address] [facility] [place] [address] 11/23/2023 10:15 AM EST Office Visit Family Medicine, [facility] [address] [facility] [address] [place] [phone] Elissa Carrero MD [address] [facility] [place] [address] [place] [address] 05/13/2024 2:00 PM EDT Office Visit Nephrology, [facility] [address] [facility] [place] [address] Geraldo Sheehan MD [address] [place] [address] Health Maintenance Due Date Last Done Comments Depression Screening 1957 Albumin/Creatinine Ratio 02/07/1964 CKD PHOS USE SMARTSET 67630 02/07/1964 Zoster Vaccines (2 of 3) 10/29/2013 09/03/2013 COVID-19 Vaccine ( season) 2023 01/09/2022, 06/28/2021, 11/10/2020, Additional history exists GFR 02/13/2024 08/15/2023, 06/19, 04/09/2023, Additional history exists CKD HGB USE SMARTSET 18524 08/15/202408/15, 08/15/2023, 07/17/2023, Additional history exists DTaP,Tdap,and Td Vaccines (3 [...] this encounter Medical Devices Implanted Type Area Business Banking Representative Device Identifier Shelf Expiration Date Model / Serial / Lot Port Implant W/8f Poly Cath - [id number] Implanted:Qty : 1 on 09/21/2023 by Phill Patrick MD at OR [facility] Right: Chest CR BARD : PERIPHERAL VASCULAR [id number] 08/16/2024 [id number] / / [id number] documented as of this encounter Procedures Procedure Name Priority Date/Time Associated Diagnosis Comments IR INTERVENTIONAL RADIOLOGY PROCEDURE IN OR Routine 09/21/2023 11:25 AM EST documented in this encounter Results * IR INTERVENTIONAL RADIOLOGY PROCEDURE IN OR (09/21/2023 11:25 AM EST) 09/21/2023 4:53 PM EST Impressions [facility] - 09/21/2023 4:50 PM EST IMPRESSION: Successful placement of a right chest power injectable medical port. Narrative [facility] - 09/21/2023 4:50 PM EST PROCEDURE: right chest medical port placement INDICATION: Bladder neoplasm in need of central intravenous access for chemotherapy. ATTENDING (OPERATING PHYSICIAN): Celina REYES RESIDENT (OPERATING PHYSICIAN): SUPPORTING PROVIDER (COMMONWEALTH ATTORNEY): None. CONSENT: After a detailed discussion of the procedure, risks, benefits and alternative treatment options, informed consent was obtained. TIME OUT: A time out procedure was performed. The patient's identification was verified. Informed consent with agreement of procedure, site and position was obtained. All necessary equipment was available prior to procedure. CONTRAST: No contrast was administered. COMPLICATIONS: None. ANESTHESIA: Local lidocaine. IV Versed. IV Fentanyl. SEDATION TIME: Start to end: 1032J-1137J. MEDICATIONS: See MAR PROCEDURE DESCRIPTION: The right neck and chest were prepped and draped in the usual sterile fashion. Using real-time ultrasound guidance, the right internal jugular vein was punctured with a micro puncture needle. Digital ultrasound images were acquired and digitally archived. A wire and sheath were used to secure access to the internal jugular vein access using fluoroscopic guidance. A second incision was made in the upper chest and a pocket was created. The medical port catheter was tunneled from the pocket to the venotomy site, measured to 21 cm and then cut. A peel-away sheath was placed through the venotomy over the wire and the catheter was positioned under fluoroscopic guidance. Once the medical port and catheter were in satisfactory position, the medical port was accessed, had appropriate blood return, and easily flushed and was locked with dilute heparin. The incision was then closed with absorbable suture and surgical glue. The venotomy site was closed with absorbable suture and surgical glue. FINDINGS: Ultrasound shows an anechoic and compressible right internal jugular vein. The medical port is in the right upper chest with the catheter tip at the cavoatrial junction Procedure Note Phill Patrick MD - 09/21/2023 PROCEDURE: right chest medical port placement INDICATION: Bladder neoplasm in need of central intravenous access forchemotherapy. ATTENDING (OPERATING PHYSICIAN): Celina REYES RESIDENT (OPERATING PHYSICIAN): SUPPORTING PROVIDER (COMMONWEALTH ATTORNEY): None. CONSENT: After a detailed discussion of the procedure, risks, benefits andalternative treatment options, informed consent was obtained. TIME OUT: A time out procedure was performed. The patient's identificationwas verified. Informed consent with agreement of procedure, site andposition was obtained. All necessary equipment was available prior toprocedure. CONTRAST: No contrast was administered. COMPLICATIONS: None. ANESTHESIA: Local lidocaine. IV Versed. IV Fentanyl. SEDATION TIME: Start to end: 1032J-1137J. MEDICATIONS: See MAR PROCEDURE DESCRIPTION: The right neck and chest were prepped and draped inthe usual sterile fashion. Using real-time ultrasound guidance, the rightinternal jugular vein was punctured with a micro puncture needle. Digitalultrasound images were acquired and digitally archived. A wire and sheathwere used to secure access to the internal jugular vein access usingfluoroscopic guidance. A second incision was made in the upper chest and a pocket was created.The medical port catheter was tunneled from the pocket to the venotomysite, measured to 21 cm and then cut. A peel-away sheath was placedthrough the venotomy over the wire and the catheter was positioned underfluoroscopic guidance. Once the medical port and catheter were in satisfactory position, themedical port was accessed, had appropriate blood return, and easilyflushed and was locked with dilute heparin. The incision was then closedwith absorbable suture and surgical glue. The venotomy site was closedwith absorbable suture and surgical glue. FINDINGS: Ultrasound shows an anechoic and compressible right internal jugularvein. The medical port is in the right upper chest with the catheter tipat the cavoatrial junction IMPRESSION IMPRESSION: Successful placement of a right chest power injectable medical port. Phill Patrick MD RAD SPECIAL PROCEDUR ES Performing Organization Address City/State/ZIP Co va Phone Number [facility] documented in this encounter Administered Medications Inactive Administered Medications - up to 3 most recent administrations Medication Order MAR Action Action Date Dose Rate Site isolyte-S pH 7.4 infusion Intravenous, at 10 mL/hr, Plasma-LYTE 148, isolyte-S, and isolyte-S pH 7.4 are considered equivalent - including for MAR barcode scanning., CONTINUOUS, Starting on Sun09/21/23 at 0945, Until Sun09/21/23 at 1632 New Bag 09/21/2023 9:19 AM EST 10 mL/ hr documented in this encounter Active and Recently Administered Medications Times are shown in EST. Continuous Medication Order 09/19/2023 09/20/2023 09/21/2023 isolyte-S pH 7.4 infusion Intravenous, at 10 mL/hr, Plasma-LYTE 148, isolyte-S, and isolyte-S pH 7.4 are considered equivalent - including for MAR barcode scanning., CONTINUOUS, Starting on Sun09/21/23 at 0945, Until Sun09/21/23 at 1632 0919 (New Bag - Prov ider: Mikaela Paulino RN) PRN Medication Order 09/19/2023 09/20/2023 09/21/2023 buffered lidocaine 1 % inj (CANCELED) ONCE PRN INTRA PROCEDURE, Starting on Sun09/21/23 at 1123, Until Sun09/21/23 at 1137, Intra-Op 1123 (Given - Provid er: Phill Patrick MD) fentaNYL (PF) inj (CANCELED) ONCE PRN INTRA PROCEDURE, Starting on Sun09/21/23 at 1034, Until Sun09/21/23 at 1137, Intra-Op 1034 (Given - Provid er: Deja Tinajero RN)1115 (Given - Provider: Deja Tinajero RN) hEParin 100 UNIT/ML Lock Flush inj (CANCELED) ONCE PRN INTRA PROCEDURE, Starting on Sun09/21/23 at 1123, Until Sun09/21/23 at 1137, Intra-Op 1123 (Given - Provid er: Phill Patrick MD) midazolam (Versed) 2 MG/2ML inj (CANCELED) ONCE PRN INTRA PROCEDURE, Starting on Sun09/21/23 at 1034, Until Sun09/21/23 at 1137, Intra-Op 1034 (Given - Provid er: Deja Tinajero RN) documented in this encounter Advance Directives Latest [...] the patient have Health Care Power of Reimbursement Consultant? Yes, not currently available Code Status History [...] the patient have Health Care Power of Reimbursement Consultant? No Care Teams Garment Parts Cutter Hand Relationship Specialty Start Date End Date Elissa Carrero MD [address] [address] [place] [address] PCP - General Family Medicine 12/29/22 documented as of this encounter
--- OUTSIDE RECORDS SUMMARY | 2023-11-20 05:48 | External Medical Summary ---
Author Name Unknown Address Unknown Organization K09:[facility] [address] [place] [address] Laboratory Report Ordering Provider Test Date Status PENELOPE WALLACE 09/24/2023 12:48:49 Final Observation Date Value Abnormality Reference (Units ) Status BUN 09/24/2023 12:48:49 25 Above high normal 6-20 (mg/dL) Final Creatinine 09/24/2023 12:48:49 1.9 Above high normal 0.6-1.2 (mg/dL) Final Glomerular filtration rate/1.73 sq M.predicted [Volume Rate/Area] in Serum, Plasma or Blood by Creatinine-based formula (CKD-EPI) 09/24/2023 12:48:49 35 Below low normal >=60 (mL/min) Final eGFR is calculated based on the CKD-EPI 2020 equation SODIUM 09/24/2023 12:48:49 139 135-146 (m mol/L) Final Potassium 09/24/2023 12:48:49 4.4 3.5-5.1 (m mol/L) Final Cl 09/24/2023 12:48:49 103 98-107 (mm ol/L) Final CO2 09/24/2023 12:48:49 25 22-32 (mmo l/L) Final Anion gap 09/24/2023 12:48:49 11 7-15 (mmol /L) Final Glucose 09/24/2023 12:48:49 132 Above high normal 70 -120 (mg/dL) Final Albumin 09/24/2023 12:48:49 4.4 3.8-5.0 (g /dL) Final AST (Aspartate aminotransferase) 09/24/2023 12:48:49 16 10-50 (U/L) Fin al Alk Phos 09/24/2023 12:48:49 76 35-130 (U/ L) Final Bilirubin, Total 09/24/2023 12:48:49 0.4 <=1 .2 (mg/dL) Final Calcium 09/24/2023 12:48:49 9.3 8.4-10.2 ( mg/dL) Final Protein 09/24/2023 12:48:49 7.0 6.0-8.3 (g /dL) Final ALT (Alanine aminotransferase) 09/24/2023 12:48:49 10 10-50 (U/L) Frantz kirkpatrick Performing Location [facility] [address] [place] [address]
--- OUTSIDE RECORDS SUMMARY | 2023-11-20 05:48 | External Medical Summary ---
Author Name Unknown Address Unknown Organization [facility] [address] [place] [address] Laboratory Report Ordering Provider Test Date Status PENELOPE WALLACE 09/24/2023 12:48:49 Final Observation Date Value Abnormality Reference (Units ) Status WBC, Total 09/24/2023 12:48:49 6.81 4.00-10.8 0 (K/uL) Final RBC 09/24/2023 12:48:49 4.38 4.50-5.25 (M/uL) Final Hemoglobin 09/24/2023 12:48:49 13.5 Below low normal 14 .0-16.8 (g/dL) Final HCT 09/24/2023 12:48:49 42.0 40.0-48.4 (%) Final MCV 09/24/2023 12:48:49 95.9 82.0-99.5 (fL) Final MCH 09/24/2023 12:48:49 30.8 27.0-34.0 (pg) Final MCHC 09/24/2023 12:48:49 32.1 32.0-36.0 (g/dL) Final RDW 09/24/2023 12:48:49 13.2 11.5-15.5 (%) Final Platelets 09/24/2023 12:48:49 220 140-400 (K /uL) Final MPV 09/24/2023 12:48:49 10.1 6.6-11.1 ( fL) Final Performing Location [facility] [address] [address]
--- OUTSIDE RECORDS SUMMARY | 2023-11-20 05:48 | External Medical Summary | Summary of Care ---
Author Name Unknown Organization [facility] Address [address] [place] [address] Phone [phone] Care Team Providers Care Director Life Name Role Phone Elissa Carrero MD Primary Care Provider Encounter Details Date Type Department Care Team (Late st Contact Info) Description 09/07/2023 Orders Only Hematology/Oncology, [facility] [address] [place] [address] Romel Perez MD [address] [place] [address] Allergies Active Allergy Reactions Criticality Noted Date Comments Lisinopril 07/04/2019 Other reaction(s): Angioedema Piroxicam 10/25/2022 Other reaction(s): muscle spasms documented as of this encounter (statuses as of 09/07/2023) Medications Medication Sig Dispensed Refills Start Date [...] TO ACCESSING. 30 g 1 09/06/2023 Active documented as of this encounter (statuses as of 09/07/2023) Active Problems Problem Noted Date Diagnosed Date [...] as of this encounter (statuses as of 09/07/2023) Resolved Problems Problem Noted Date Diagnosed Date Resolved Date Stage 3a chronic kidney disease 10/27/2022 01/24/2023 Overview: Per CKD protocol documented as of this encounter (statuses as of 09/07/2023) Immunizations Name Administration Dates Next Due COVID-19 mRNA, LNP-s, No Pre serve, 2-Dose Series ([employer]) 01/09/2022,06/28/2021,11/10/2020,10/21 Pneumococcal Conjugate Vacc, 13 Valent (Prevnar) [...] Care Team (Late st Contact Info) Description 09/19/2023 1:00 PM EST Office Visit Urology, [place] [address] [place] [address] Nabeel Alvarado MD [address] [place] [address] 11/23/2023 10:15 AM EST Office Visit [facility], [facility] [address] [facility] [address] [place] [phone] Elissa Carrero MD 7095 [facility] [address] [place] [address] 05/13/2024 2:00 PM EDT Office Visit Nephrology, [place]luca Munoz [address] [place] [address] Geraldo Sheehan MD [address] [place] [address] Health Maintenance Due Date Last Done Comments Depression Screening 1957 Albumin/Creatinine Ratio 02/07/1964 CKD PHOS USE SMARTSET 46128 02/07/1964 Zoster Vaccines (2 of 3) 10/29/2013 09/03/2013 COVID-19 Vaccine ( season) 2023 01/09/2022, 06/28/2021, 11/10/2020, Additional history exists GFR 02/13/2024 08/15/2023, 06/19, 04/09/2023, Additional history exists CKD HGB USE SMARTSET 86964 08/15/202408/15, 08/15/2023, 07/17/2023, Additional history exists DTaP,Tdap,and [...] documented as of this encounter Medical Devices Not on filedocumented as of this encounter Advance Directives Latest [...] the patient have Health Care Power of Straight Knife Machine Cutter? Yes, not currently available Code Status History [...] the patient have Health Care Power of Straight Knife Machine Cutter? No Care Teams Director Life Relationship Specialty Start Date End Date Elissa Carrero MD [address] [address] PCP - General Family Medicine 12/29/22 documented as of this encounter
--- OUTSIDE RECORDS SUMMARY | 2023-11-20 05:48 | External Medical Summary ---
Author Name Unknown Address Unknown Organization [facility] [address] [place] [address] Laboratory Report Ordering Provider Test Date Status PENELOPE WALLACE 09/24/2023 12:48:49 Final Observation Date Value Abnormality Reference (Units ) Status SYNC LEUKOCYTES IN BLOOD BY AUTOMATED COUNT 09/24/2023 12:48:49 6.81 4.00-10.80 (K/uL) Final Segs 09/24/2023 12:48:49 64.1 40.0-75.0 (%) Final Lymphs % 09/24/2023 12:48:49 21.6 18.0-42.0 (%) Final Monos 09/24/2023 12:48:49 9.8 1.0-11.0 (%) Final Eosinophils 09/24/2023 12:48:49 4.1 0.0-6.0 (%) Final Basos 09/24/2023 12:48:49 0.4 0.0-2.0 (%) Final Absolute Segs 09/24/2023 12:48:49 4.36 1.80-7.70 (K/uL) Final Lymphs, absolute 09/24/2023 12:48:49 1.47 1.00-4.80 (K/ul) Final Monos, Abs 09/24/2023 12:48:49 0.67 0.00-1.10 (K/uL) Final Eos, Abs 09/24/2023 12:48:49 0.28 0.00-0.70 (K/uL) Final Basos, Abs 09/24/2023 12:48:49 0.03 0.00-0.20 (K/uL) Final Performing Location [facility] [address] [place] [address]
--- OUTSIDE RECORDS SUMMARY | 2023-11-20 05:48 | External Medical Summary | Summary of Care ---
Author Name Unknown Organization [facility] Address [address] [place] [address] Phone [phone] Care Team Providers Care Ship Boss Name Role Phone Elissa Carrero MD Primary Care Provider Reason for Visit * Reason Comments Treatment * Episode Based Medications (Routine) - Authorized Specialty Diagnoses / Procedures Referred By Carolina t Referred To Contact Diagnoses Cancer of left renal pelvis (HCC) Encounter for antineoplastic chemotherapy Malignant neoplasm of overlapping sites of bladder (HCC) Procedures [place] INJ PEMBROLIZUMAB Romel Perez MD [address] [place] [address] Anc Hem/Onc [address] [address] Referral ID Status Reason Start Date Expiration Date V isits Requested Visits Authorized [id number] Authorized 09/11/2023 08/17/[phone] Encounter Details Date Type Department Care Team (Latest Contact Info) Description 09/24/2023 2:00 PM EST Hem/Onc Treatment Hematology/Oncolog y Treatment, [address] [address] Cancer of left renal pelvis (HCC)*; Encounter for antineoplastic chemotherapy; Malignant neoplasm of overlapping sites of bladder (HCC) Allergies Active Allergy Reactions Criticality Noted Date Comments Lisinopril 07/04/2019 Other reaction(s): Angioedema Piroxicam 10/25/2022 Other reaction(s): muscle spasms documented as of this encounter (statuses as of 09/24/2023) Medications Medication Sig Dispensed Refills Start Date [...] as of this encounter (statuses as of 09/24/2023) Active Problems Problem Noted Date Diagnosed Date [...] as of this encounter (statuses as of 09/24/2023) Resolved Problems Problem Noted Date Diagnosed Date Resolved Date Stage 3a chronic kidney disease 10/27/2022 01/24/2023 Overview: Per CKD protocol documented as of this encounter (statuses as of 09/24/2023) Immunizations Name Administration Dates Next Due COVID-19 mRNA, LNP-s, No Pre serve, 2-Dose Series ([employer]) 01/09/2022,06/28/2021,11/10/2020,10/21 Pneumococcal Conjugate Vacc, 13 Valent (Prevnar) [...] Description 10/15/2023 11:00 AM EST Laboratory Laboratory [facility] 200 [facility] [place] [phone] [facility] [address] [facility] [place] [address] 10/15/2023 11:30 AM EST Office Visit Hematology/Oncology [address] [place] [address] Dipti Guaman CRNP 400 [facility] [place] [address] 10/15/2023 12:00 PM EST Hem/Onc Treatment Hematology/Oncology Treatment, [place] [facility] [place] [address] Tammy, Chair 4 Hem Onc [address] [place] [address] 11/23/2023 10:15 AM EST Office Visit Family Medicine, [facility] 7095 [facility] [address] [place] [address] Elissa Carrero MD 7097 [facility] [address] [place] [address] 05/13/2024 2:00 PM EDT [facility] 200 [facility] [place] [address] Geraldo Sheehan MD 200 [facility] [place] [address] Health Maintenance Due Date Last Done Comments Depression Screening 1957 Albumin/Creatinine Ratio 02/07/1964 CKD PHOS USE SMARTSET 85445 02/07/1964 Zoster Vaccines (2 of 3) 10/29/2013 09/03/2013 COVID-19 Vaccine ( season) 2023 01/09/2022, 06/28/2021, 11/10/2020, Additional history exists GFR 03/24/2024 09/24/2023, 07/19, 07/17/2023, Additional history exists CKD HGB USE SMARTSET 14041 09/24/202409/24, 09/24/2023, 08/15/2023, Additional history exists DTaP,Tdap,and [...] this encounter Medical Devices Implanted Type Area Gyn Physician Device Identifier Shelf Expiration Date Model / Serial / Lot Port Implant W/8f Poly Cath - [id number] Implanted:Qty : 1 on 09/21/2023 by Phill Patrick MD at OR [facility] Right: Chest CR BARD : PERIPHERAL VASCULAR [id number] 08/16/2024 [id number] / / [id number] documented as of this encounter Visit Diagnoses [...] ONCE PRN Other, Hypersensitivity Reaction, Starting on Sun09/24/23 at 1349, Until Sun09/25/23 at 1348, For 24 hours EPINEPHrine 1 MG/ML inj 0.3 mg 0.3 mg, Intramuscular, ONCE PRN Other, Hypersensitivity Reaction or Anaphylaxis, Starting on Sun09/24/23 at 1349, Until Sun09/25/23 at 1348, For 24 hours hEParin 100 UNIT/ML Lock Flush inj 500 Units 500 Units (5 mL), IV Lock, PRN Other, IV Flush, Starting on Sun09/24/23 at 1452, Until Sun09/25/23 at 1451, For 24 hours, Do not flush if lock, PICC, or central line not in place; IV infusing or unable to flush. Hydrocortisone Sod Suc (PF) (Solu-Cortef) inj 100 mg 100 mg, IV Push, ONCE PRN Other, Hypersensitivity Reaction, Starting on Sun09/24/23 at 1349, Until Sun09/25/23 at 1348, For 24 hours NSS infusion Intravenous, at 50 mL/hr, PRN, Starting on Sun09/24/23 at 1500, Until Discontinued, Maintenance line Start Infusion 09/24/2023 2:10 PM EST 50 mL/hr oxygen GAS Inhalation, OXYGEN, First dose on Sun09/24/23 at 1600, Until Discontinued, Device/Managed by: Low [...] Push, PRN Other, IV Flush, Starting on Sun09/24/23 at 1452, Until Sun09/25/23 at 1451, For 24 hours, Do not flush if lock, PICC, or central line not in place; IV infusing or unable to flush. Inactive Administered Medications - up to 3 [...] the patient have Health Care Power of Travel Physical Therapist? Yes, not currently available Code Status History [...] the patient have Health Care Power of Travel Physical Therapist? No Care Teams Ship Boss Relationship Specialty Start Date End Date Elissa Carrero MD [address] [address] PCP - General Family Medicine 12/29/22 documented as of this encounter
--- OUTSIDE RECORDS SUMMARY | 2023-11-20 05:48 | External Medical Summary | Summary of Care ---
Author Name Unknown Organization [facility] Address [address] [facility] [place] [address] Phone [phone] Care Team Providers Care Beater Lead Name Role Phone Elissa Carrero MD Primary Care Provider Reason for Visit * Reason Onset Date Comments Precert Future 09/06/2023 Keytruda Encounter Details Date Type Department Care Team (Late st Contact Info) Description 09/06/2023 Telephone Hematology/Oncology Sergio Tammy [place] [address] [place] [address] Romel Perez MD [address] [place] [address] Precert Future (Keytruda) Allergies Active Allergy Reactions Criticality Noted Date Comments Lisinopril 07/04/2019 Other reaction(s): Angioedema Piroxicam 10/25/2022 Other reaction(s): muscle spasms documented as of this encounter (statuses as of 09/11/2023) Medications Medication Sig Dispensed Refills Start Date [...] as of this encounter (statuses as of 09/11/2023) Active Problems Problem Noted Date Diagnosed Date [...] as of this encounter (statuses as of 09/11/2023) Resolved Problems Problem Noted Date Diagnosed Date Resolved Date Stage 3a chronic kidney disease 10/27/2022 01/24/2023 Overview: Per CKD protocol documented as of this encounter (statuses as of 09/11/2023) Immunizations Name Administration Dates Next Due COVID-19 [...] Telephone Encounter - Madai Hull RN - 09/11/2023 7:47 AM EST Referral entered but was not routed to nursing. [facility]: can you please call patient with OOP estimate for treatment? Scheduling: please call patient to schedule for after port placement 09/21/23 - labs "CBCd, CMP, TSH/T4" - 2 hour appt "C1D1 keytruda" (Ana) Thanks! * Telephone Encounter - Madai Hull RN - 09/06/2023 2:33 PM EST Patient would like [facility] to call with OOP cost estimate. Port placement 09/21/23. * Telephone Encounter - Troy Dominguez RN - 09/06/2023 2:07 PM EST Order received for Keytruda. [place] plan adjusted. Waiting for auth. Consent signed 09/05/23. Hep B Labs 07/04/22. Nurse education scheduled for today. documented in this encounter Plan of Treatment Upcoming Encounters Date Type Department Care Team (Late st Contact Info) Description 09/19/2023 1:00 PM EST Office Visit Urology, [place] [address] [place] [address] Nabeel Alvarado MD [address] [place] [address] 11/23/2023 10:15 AM EST Office Visit Family Medicine, [facility] 70[address] [facility] [address] [place] [phone] Elissa Carrero MD 7095 [facility] [address] [place] [address] 05/13/2024 2:00 PM EDT Office Visit Nephrology, [facility] 200 [facility] [place] [address] Geraldo Sheehan MD [address] [facility] [place] [address] Health Maintenance Due Date Last Done Comments Depression Screening 1957 Albumin/Creatinine Ratio 02/07/1964 CKD PHOS USE SMARTSET 57240 02/07/1963 Zoster Vaccines (2 of 3) 10/29/2013 09/03/2013 COVID-19 Vaccine ( season) 2023 01/09/2022, 06/28/2021, 11/10/2020, Additional history exists GFR 02/13/2024 08/15/2023, 06/19, 04/09/2023, Additional history exists CKD HGB USE SMARTSET 70625 08/15/202408/15, 08/15/2023, 07/17/2023, Additional history exists DTaP,Tdap,and [...] the patient have Health Care Power of Hourly Shift Manager? Yes, not currently available Code Status History [...] the patient have Health Care Power of Hourly Shift Manager? No Care Teams Beater Lead Relationship Specialty Start Date End Date Elissa Carrero MD [address] [address] PCP - General Family Medicine 12/29/22 documented as of this encounter
--- OUTSIDE RECORDS SUMMARY | 2023-11-20 05:48 | External Medical Summary | Summary of Care ---
Author Name Unknown Organization [facility] Address [address] [facility] [place] [address] Phone [phone] Care Team Providers Care Crimping Machine Operator For Metal Name Role Phone Elissa Carrero MD Primary Care Provider Reason for Visit * Reason Onset Date Comments Precert Future 09/06/2023 Keytruda Encounter Details Date Type Department Care Team (Late st Contact Info) Description 09/06/2023 Telephone Hematology/Oncology Sergio Tammy [place] [address] [place] [address] Romel Perez MD [address] [place] [address] Precert Future (Keytruda) Allergies Active Allergy Reactions [...] encounter Miscellaneous Notes * Telephone Encounter - Niecy Lin OSA - 09/11/2023 8:15 AM EST Unable to estimate due to patient having 2 insurances. Pt not contacted due to minimal cost. * Telephone Encounter - Madai Hull RN [...] 09/06/2023 2:33 PM EST Patient would like [facility] to call with OOP cost estimate. Port placement 09/21/23. * Telephone Encounter - Troy Dominguez RN - 09/06/2023 2:07 PM EST Order received for Keytruda. [place] plan adjusted. Waiting for auth. Consent signed 09/05/23. Hep B Labs 07/04/22. Nurse education scheduled for today. documented in this encounter Plan of Treatment Upcoming Encounters Date Type Department Care Team (Late st Contact Info) Description 09/19/2023 1:00 PM EST Office Visit Urology, [place] [address] [place] [address] Nabe[place] Alvarado MD [address] [place] [address] 11/23/2023 10:15 AM EST Office Visit Family Medicine, [facility] 70[address] [facility] [address] [place] [address] Elissa Carrero MD 7095 [facility] [address] [place] [address] 05/13/2024 2:00 PM EDT Office Visit Nephrology, [facility] 200 [facility] [place] [address] Geraldo Sheehan MD 200 [facility] [place] [address] Health Maintenance Due Date Last Done Comments Depression Screening 1957 Albumin/Creatinine Ratio 02/07/1964 CKD PHOS USE SMARTSET 51407 02[birth year]07/1963 Zoster Vaccines (2 of 3) 10/29/2013 09/03/2013 COVID-19 Vaccine ( season) 2023 01/09/2022, 06/28/2021, 11/10/2020, Additional history exists GFR 02/13/2024 08/15/2023, 06/19, 04/09/2023, Additional history exists CKD HGB USE SMARTSET 49092 08/15/202408/15, 08/15/2023, 07/17/2023, Additional history exists DTaP,Tdap,and [...] the patient have Health Care Power of Tax Senior Associate? Yes, not currently available Code Status History [...] the patient have Health Care Power of Tax Senior Associate? No Care Teams Crimping Machine Operator For Metal Relationship Specialty Start Date End Date Elissa Carrero MD [address] [address] PCP - General Family Medicine 12/29/22 documented as of this encounter
--- OUTSIDE RECORDS SUMMARY | 2023-11-20 05:48 | External Medical Summary | Summary of Care ---
Author Name Unknown Organization [facility] Address [address] [place] [facility] [place] [address] Phone [phone] Care Team Providers Care Labor And Delivery Nurse Name Role Phone Elissa Carrero MD Primary Care Provider Reason for Visit * Reason Comments Outpatient Testing Encounter Details Date Type Department Care Team (Late st Contact Info) Description 09/24/2023 1:00 PM EST Laboratory Laboratory [facility] [address] [place] [phone] [facility] [address] [place] [address] Cancer of left renal pelvis (HCC); Encounter [...] mRNA, LNP-s, No Pre serve, 2-Dose Series (idiag) 01/09/2022,06/28/2021,11/10/2020,10/21 Pneumococcal Conjugate Vacc, 13 Valent (Prevnar) [...] Team (Late st Contact Info) Description 09/24/2023 2:00 PM EST Hem/Onc Treatment Hematology/Oncology Treatment, [place] 200 [facility] [place] [address] Arrived 11/23/2023 10:15 AM EST Office Visit Family Medicine, [facility] EMSO 7095 [facility] [address] [place] [phone] Elissa Carrero MD 7095 [facility] [address] [place] [address] 05/13/2024 2:00 PM EDT Office Visit Nephrology, [facility] 200 [facility] [place] [address] Geraldo Sheehan MD 200 [facility] [place] [address] Pending Results Name Type Priority Associated Diagnoses Date /Time COMPREHENSIVE METABOLIC PANEL Lab STAT Cancer of left renal pelvis (HCC) 09/24/2023 12:48 PM EST TSH WITH FREE T4 IF INDICATED Lab STAT Cancer of left renal pelvis (HCC) Encounter for long-term (current) use of medications 09/24/2023 12:48 PM EST Health Maintenance Due Date Last Done Comments Depression Screening 1957 Albumin/Creatinine Ratio 02/07/1964 CKD PHOS USE SMARTSET 86526 02/07/1964 Zoster Vaccines (2 of 3) 10/29/2013 09/03/2013 COVID-19 Vaccine ( season) 2023 01/09/2022, 06/28/2021, 11/10/2020, Additional history exists GFR 02/13/2024 08/15/2023, 06/19, 04/09/2023, Additional history exists CKD HGB USE SMARTSET 57734 08/15/202409/24, 09/24/2023, 08/15/2023, Additional history exists DTaP,Tdap,and Td [...] this encounter Medical Devices Implanted Type Area Flake Cutter Operator Device Identifier Shelf Expiration Date Model / Serial / Lot Port Implant W/8f Poly Cath - [id number] Implanted:Qty : 1 on 09/21/2023 by Phill Patrick MD at OR [facility] Right: Chest CR BARD : PERIPHERAL VASCULAR [id number] 08/16/2024 [id number] / / [id number] documented as of this encounter Procedures Procedure Name Priority Date/Time Associated Diagnosis Comments DIFFERENTIAL, AUTOMATED STAT 09/24/2023 12:48 PM EST Cancer of left renal pelvis (HCC) CBC STAT 09/24/2023 12:48 PM EST Cancer of left renal pelvis (HCC) CBC STAT 09/24/2023 12:48 PM EST Cancer of left renal pelvis (HCC) documented in this encounter Results * DIFFERENTIAL, AUTOMATED (09/24/2023 12:48 PM EST) WBC 6.81 4.00 - 10.80 K/uL 09/24/2023 1:02 PM EST [facility] 56-02 Neutrophils % 64.1 40.0 - 75.0 % 09/24/2023 1:02 PM EST [facility] 56-02 Lymphocytes % 21.6 18.0 - 42.0 % 09/24/2023 1:02 PM EST [facility] 56-02 Monocytes % 9.8 1.0 - 11.0 % 09/24/2023 1:02 PM EST [facility] [place] 56-02 Eosinophils % 4.1 0.0 - 6.0 % 09/24/2023 1:02 PM EST [facility] [place] 56-02 Basophils % 0.4 0.0 - 2.0 % 09/24/2023 1:02 PM EST [facility] 56-02 Absolute Neutrophils 4.36 1.80 - 7.70 K/uL 09/24/2023 1:02 PM EST [facility] 56-02 Absolute Lymphocytes 1.47 1.00 - 4.80 K/ul 09/24/2023 1:02 PM EST [facility] 56-02 Absolute Monocytes 0.67 0.00 - 1.10 K/uL 09/24/2023 1:02 PM EST [facility] 56-02 Absolute Eosinophils 0.28 0.00 - 0.70 K/uL 09/24/2023 1:02 PM [facility] 56-02 Absolute Basophils 0.03 0.00 - 0.20 K/uL 09/24/2023 1:02 PM [facility] 56-02 Blood Venous blood specimen / Unknown Venipuncture / Unknown 09/24/2023 12:48 PM EST 09/24/2023 12:54 PM EST Romel Perez MD LAB BLOOD ORDERA BLES [facility] 56-02 [address] [place] [address] * (ABNORMAL) CBC (09/24/2023 12:48 PM EST) WBC 6.81 4.00 - 10.80 K/uL 09/24/2023 1:02 PM EST [facility] 56- RBC 4.38 4.50 - 5.25 M/uL 09/24/2023 1:02 PM [facility] 5602 HGB 13.5(L) 14.0 - 16.8 g/dL 09/24/2023 1:02 PM [facility] 56 HCT 42.0 40.0 - 48.4 % 09/24/2023 1:02 PM [facility] 56- MCV 95.9 82.0 - 99.5 fL 09/24/2023 1:02 PM [facility] 5602 MCH 30.8 27.0 - 34.0 pg 09/24/2023 1:02 PM [facility] 5602 MCHC 32.1 32.0 - 36.0 g/dL 09/24/2023 1:02 PM [facility] 5602 RDW 13.2 11.5 - 15.5 % 09/24/2023 1:02 PM [facility] 56-02 PLT 220 140 - 400 K/uL 09/24/2023 1:02 PM [facility] 56-02 MPV 10.1 6.6 - 11.1 fL 09/24/2023 1:02 PM [facility] 56-02 Blood Venous blood specimen / Unknown Venipuncture / Unknown 09/24/2023 12:48 PM EST 09/24/2023 12:54 PM EST Romel Perez MD LAB BLOOD ORDERA BLES [facility] 56- [address] [place] [address] documented in this encounter Visit Diagnoses Diagnosis [...] the patient have Health Care Power of Beck Operator? Yes, not currently available Code Status [...] the patient have Health Care Power of Beck Operator? No Care Teams Labor And Delivery Nurse Relationship Specialty Start Date End Date Elissa Carrero MD [address] [address] PCP - General Family Medicine 12/29/22 documented as of this encounter
--- OUTSIDE RECORDS SUMMARY | 2023-11-20 05:48 | External Medical Summary | Summary of Care ---
Author Name Unknown Organization [facility] Address [address] [facility] [place] [address] Phone [phone] Care Team Providers Care Commissioner Of Relocation Services Name Role Phone Elissa Carrero MD Primary Care Provider Reason for Visit * Reason Onset Date Comments Precert Future 09/06/2023 Keytruda Encounter Details Date Type Department Care Team (Late st Contact Info) Description 09/06/2023 Telephone Hematology/Oncology Sergio Tammy [place] [address] [place] [address] Romel Perez MD [address] [place] [address] Precert Future (Keytruda) Allergies Active Allergy Reactions Criticality Noted Date Comments Lisinopril 07/04/2019 Other reaction(s): Angioedema Piroxicam 10/25/2022 Other reaction(s): muscle spasms documented as of this encounter (statuses as of 09/12/2023) Medications Medication Sig Dispensed Refills Start Date [...] as of this encounter (statuses as of 09/12/2023) Active Problems Problem Noted Date Diagnosed Date [...] as of this encounter (statuses as of 09/12/2023) Resolved Problems Problem Noted Date Diagnosed Date Resolved Date Stage 3a chronic kidney disease 10/27/2022 01/24/2023 Overview: Per CKD protocol documented as of this encounter (statuses as of 09/12/2023) Immunizations Name Administration Dates Next Due COVID-19 [...] encounter Miscellaneous Notes * Telephone Encounter - Keyla Hudson OSA - 09/12/2023 9:30 AM EST Spoke to patient, scheduled treatment/labs 09/24/23. * Telephone Encounter - Niecy Lin OSA [...] 2:07 PM EST Order received for Keytruda. [place] plan adjusted. Waiting for auth. Consent signed 09/05/23. Hep B Labs 07/04/22. Nurse education scheduled for today. documented in this encounter Plan of Treatment Upcoming Encounters Date Type Department Care Team (Late st Contact Info) Description 09/19/2023 1:00 PM EST Office Visit Urology, [place] [address] [place] [address] Nabeel Alvarado MD [address] [place] [address] 09/24/2023 1:00 PM EST Laboratory Laboratory [facility] [place] 200 [facility] [place] [phone] [place] [facility] [address] [facility] [place] [address] 09/24/2023 2:00 PM EST Hem/Onc Treatment Hematology/Oncology Treatment, [place] [address] [place] [address] 11/23/2023 10:15 AM EST Office Visit Family Medicine, [facility] EMSO 7095 [facility] [place] [address] [place] [phone] Elissa Carrero MD 7095 [facility] [place] 1100 [place] [address] 05/13/2024 2:00 PM EDT Office Visit Nephrology, [facility] 200 [facility] [place] [address] Geraldo Sheehan MD 200 [facility] [place] [address] Health Maintenance Due Date Last Done Comments Depression Screening 1957 Albumin/Creatinine Ratio 02/07/1964 CKD PHOS USE SMARTSET 01538 02/07/1964 Zoster Vaccines (2 of 3) 10/29/2013 09/03/2013 COVID-19 Vaccine ( season) 2023 01/09/2022, 06/28/2021, 11/10/2020, Additional history exists GFR 02/13/2024 08/15/2023, 06/19, 04/09/2023, Additional history exists CKD HGB USE SMARTSET 96803 08/15/202408/15, 08/15/2023, 07/17/2023, Additional history exists DTaP,Tdap,and [...] the patient have Health Care Power of Communications Consultant? Yes, not currently available Code Status [...] the patient have Health Care Power of Communications Consultant? No Care Teams Commissioner Of Relocation Services Relationship Specialty Start Date End Date Elissa Carrero MD [address] [address] PCP - General Family Medicine 12/29/22 documented as of this encounter
--- OUTSIDE RECORDS SUMMARY | 2023-11-20 05:48 | External Medical Summary ---
Author Name Unknown Address Unknown Organization K01:[facility] [place] [address] [facility] [address] [place] [address] Laboratory Report Ordering Provider Test Date Status WALLACEDEDRAPENELOPE 09/24/2023 12:48:49 Final Observation Date Value Abnormality Reference (Units ) Status TSH 09/24/2023 12:48:49 2.73 0.27-4.20 (uIU/mL) Final Performing Location LABORATORY C - [address] [place] [address]
--- OUTSIDE RECORDS SUMMARY | 2023-11-20 05:48 | External Medical Summary | Summary of Care ---
Author Name Unknown Organization [facility] Address [address] [place] [address] Phone [phone] Care Team Providers Care Lead Recreation Assistant Name Role Phone Elissa Carrero MD Primary Care Provider Reason for Visit * Reason Comments Treatment * Episode Based Medications (Routine) - Authorized Specialty Diagnoses / Procedures Referred By Carolina t Referred To Contact Diagnoses Cancer of left renal pelvis (HCC) Encounter for antineoplastic chemotherapy Malignant neoplasm of overlapping sites of bladder (HCC) Procedures MO INJ PEMBROLIZUMAB Romel Perez MD [address] [place] [address] Anc Hem/Onc [address] [address] Referral ID Status Reason Start Date Expiration Date V isits Requested Visits Authorized [id number] Authorized 09/11/2023 08/17/[phone] Encounter Details Date Type Department Care Team (Latest Contact Info) Description 09/24/2023 2:00 PM EST Hem/Onc Treatment Hematology/Oncolog y Treatment, [address] [address] Cancer of left renal pelvis (HCC)*; Encounter [...] mRNA, LNP-s, No Pre serve, 2-Dose Series ([employer]) 01/09/2022,06/28/2021,11/10/2020,10/21 Pneumococcal Conjugate Vacc, 13 Valent (Prevnar) [...] Description 10/15/2023 11:00 AM EST Laboratory Laboratory [facility] 200 [facility] [place] [phone] [facility] [address] [facility] [place] [address] 10/15/2023 11:30 AM EST Office Visit Hematology/Oncology [address] [place] [address] Dipti Guaman CRNP 400 [facility] [place] [address] 10/15/2023 12:00 PM EST Hem/Onc Treatment Hematology/Oncology Treatment, [place] 200 [facility] [place] [address] Tammy, Chair 4 Hem Onc [address] [place] [address] 11/23/2023 10:15 AM EST Office Visit Family Medicine, [facility] EMSO 7095 [facility] 1100 [place] [phone] Elissa Carrero MD 7056 [facility] [address] [place] [address] 05/13/2024 2:00 PM EDT Office Visit Nephrology, [facility] 200 [facility] [place] [address] Geraldo Sheehan MD 200 [facility] [place] [address] Health Maintenance Due Date Last Done Comments Depression Screening 1957 Albumin/Creatinine Ratio 02/07/1964 CKD PHOS USE SMARTSET 25381 02/07/1964 Zoster Vaccines (2 of 3) 10/29/2013 09/03/2013 COVID-19 Vaccine ( season) 2023 01/09/2022, 06/28/2021, 11/10/2020, Additional history exists GFR 03/24/2024 09/24/2023, 07/19, 07/17/2023, Additional history exists CKD HGB USE SMARTSET 76327 09/24/202409/24, 09/24/2023, 08/15/2023, Additional history exists DTaP,Tdap,and [...] this encounter Medical Devices Implanted Type Area Spray Gun Repairer Helper Device Identifier Shelf Expiration Date Model / Serial / Lot Port Implant W/8f Poly Cath - [id number] Implanted:Qty : 1 on 09/21/2023 by Phill Patrick MD at OR [facility] Right: Chest CR BARD : PERIPHERAL VASCULAR [id number] 08/16/2024 [id number] / / [id number] documented as of this encounter Visit Diagnoses [...] the patient have Health Care Power of Mill Beam Fitter? Yes, not currently available Code Status History [...] the patient have Health Care Power of Mill Beam Fitter? No Care Teams Lead Recreation Assistant Relationship Specialty Start Date End Date Elissa Carrero MD [address] [address] PCP - General Family Medicine 12/29/22 documented as of this encounter
[2023-11-20] MEDS: HEPARIN SOD 5,000 UNIT/0.5 ML VIAL SQ SCH (05:55)
--- OUTSIDE RECORDS SUMMARY | 2023-11-20 06:10 | External Medical Summary | Summary of Care ---
Author Name Unknown Organization [facility] Address [address] [facility] [place] [address] Phone [phone] Care Team Providers Care Professional Services Manager Name Role Phone Elissa Carrero MD Primary Care Provider Reason for Visit * Reason Onset Date Comments Precert Future 09/06/2023 Keytruda Encounter Details Date Type Department Care Team (Late st Contact Info) Description 09/06/2023 Telephone Hematology/Oncology Sergio Tammy [place] [address] [place] [address] Romel Perez MD [address] [place] [address] Precert Future (Keytruda) Allergies Active Allergy Reactions Criticality Noted Date Comments Lisinopril 07/04/2019 Other reaction(s): Angioedema Piroxicam 10/25/2022 Other reaction(s): muscle spasms documented as of this encounter (statuses as of 09/06/2023) Medications Medication Sig Dispensed Refills Start Date [...] as of this encounter (statuses as of 09/06/2023) Active Problems Problem Noted Date Diagnosed Date [...] as of this encounter (statuses as of 09/06/2023) Resolved Problems Problem Noted Date Diagnosed Date Resolved Date Stage 3a chronic kidney disease 10/27/2022 01/24/2023 Overview: Per CKD protocol documented as of this encounter (statuses as of 09/06/2023) Immunizations Name Administration Dates Next Due COVID-19 [...] placement 09/21/23. * Telephone Encounter - Troy Dominguez, MARCIE - 09/06/2023 2:07 PM EST Order received for Keytruda. [place] plan adjusted. Waiting for auth. Consent signed 09/05/23. Hep B Labs 07/04/22. Nurse education scheduled for today. documented in this encounter Plan of Treatment Upcoming Encounters Date Type Department Care Team (Late st Contact Info) Description 09/19/2023 1:00 PM EST Office Visit Urology, [place] [address] [place] [address] Nabeel Alvarado MD [address] [facility] [address] [facility] [address] 11/23/2023 10:15 AM EST Office Visit Family Medicine, [facility] E[facility] 7095 [facility] [address] [place] [phone] Elissa Carrero MD 7095 [facility] [address] [place] [address] 05/13/2024 2:00 PM EDT Office Visit Nephrology, [place]luc[place] 200 [facility] [place] [address] Geraldo Sheehan MD 200 [facility] [place] [facility] [place] [address] Health Maintenance Due Date Last Done Comments Depression Screening 1957 Albumin/Creatinine Ratio 02/07/1964 CKD PHOS USE SMARTSET 23819 02/07/1964 Zoster Vaccines (2 of 3) 10/29/2013 09/03/2013 COVID-19 Vaccine ( season) 2023 01/09/2022, 06/28/2021, 11/10/2020, Additional history exists GFR 02/13/2024 08/15/2023, 06/19, 04/09/2023, Additional history exists CKD HGB USE SMARTSET 35853 08/15/202408/15, 08/15/2023, 07/17/2023, Additional history exists DTaP,Tdap,and [...] the patient have Health Care Power of Flight Test Shop Mechanic? Yes, not currently available Code Status History [...] the patient have Health Care Power of Flight Test Shop Mechanic? No Care Teams Professional Services Manager Relationship Specialty Start Date End Date Elissa Carrero MD [address] [place] [address] PCP - General Family Medicine 12/29/22 documented as of this encounter
--- OUTSIDE RECORDS SUMMARY | 2023-11-20 06:11 | External Medical Summary | Summary of Care ---
Author Name Unknown Organization [facility] Address [address] [place] [address] Phone [phone] Care Team Providers Care Faculty Criminal Justice Name Role Phone Elissa Carrero MD Primary Care Provider Reason for Visit * Reason Onset Date Comments Scheduling 09/06/2023 Encounter Details Date Type Department Care Team (Late st Contact Info) Description 09/06/2023 Telephone Hematology/Oncology, [facility] 400 [facility] [place] [address] Romel Perez MD 200 [place] [address] Scheduling Allergies Active Allergy Reactions Criticality Noted Date [...] encounter Miscellaneous Notes * Telephone Encounter - Mercedes Adams OSA - 09/06/2023 10:35 AM EST Spoke to patient to schedule the Mediport Insertion for 09/21 at [facility]. Patient identified by: name/birthdate Person taught: Patient METHOD: Lecture-telephone interview Patient Preferred Learning Methods: Lecture-Telephone interview PATIENT INSTRUCTIONS GIVEN: - General Preoperative Instructions Reviewed - NPO Instructions Reviewed, pt to stop eating 8 hours prior to procedure and stop drinking 2 hoursprior to procedure. -Vocal Music Teacher required Location and check-in instructions Verbalizes understanding of education: Yes Procedure date at time of Imaging Encounter: 09/21 What procedure is patient having? Mediport Insertion Laterality confirmed as N/a Does the patient have a yellow bar? Did not The Patient was given the opportunity to ask questions concerning the procedure. Signature: VIVIENNE Trinidad 09/06/2023 documented in this encounter Plan of Treatment Upcoming Encounters Date Type Department Care Team (Late st Contact Info) Description 09/06/2023 2:30 PM EST Nurse Only Hematology/Oncology [facility] [place] [address] [place] [address] Tammy, Nurse [facility] [address] [place] [address] 09/19/2023 1:00 PM EST Office Visit Urology, [address] [place] [address] Nabeel Alvarado MD [address] [place] [address] 11/23/2023 10:15 AM EST Office Visit Family Medicine, [facility] E[facility] 7095 [facility] [address] [place] [address] Elissa Carrero MD 7095 [facility] [place] [address] [place] [address] 05/13/2024 2:00 PM EDT Office Visit Nephrology, [facility] 200 [facility] [place] [address] Geraldo Sheehan MD [address] [place] [address] Health Maintenance Due Date Last Done Comments Depression Screening 1957 Albumin/Creatinine Ratio 02/07/1964 CKD PHOS USE SMARTSET 98088 02/07/1963 Zoster Vaccines (2 of 3) 10/29/2013 09/03/2013 COVID-19 Vaccine ( season) 2023 01/09/2022, 06/28/2021, 11/10/2020, Additional history exists GFR 02/13/2024 08/15/2023, 06/19, 04/09/2023, Additional history exists CKD HGB USE SMARTSET 26657 08/15/202408/15, 08/15/2023, 07/17/2023, Additional history exists DTaP,Tdap,and [...] the patient have Health Care Power of Fugitive Investigator? Yes, not currently available Code Status History Code Status Date Activated Date Inactivated Comments Full Code 05/23/2022 6:38 PM 05/25/2022 7:08 PM This or barak reflects the patients wishes and were consensually agreed upon. Question Answer Comments Discussion of Advance Directives occurred with: Not Discussed due to patient's condition Full Code 05/23/2022 12:31 PM 05/23/2022 6:38 PM This order reflects the patients wishes and were consensually agreed upon. Question Answer Comments Discussion of Advance Directives occurred with: Not Discussed due to patient's condition Full Code 11/12/2017 2:18 PM 11/13/2017 8:58 PM Question Answer Comments Discussion of Advance Directives occurred with: Not Discussed Does the patient have a Living Will? No Does the patient have Health Care Power of Fugitive Investigator? No Care Teams Faculty Criminal Justice Relationship Specialty Start Date End Date Elissa Carrero MD [address] [address] PCP - General Family Medicine 12/29/22 documented as of this encounter
--- OUTSIDE RECORDS SUMMARY | 2023-11-20 06:11 | External Medical Summary | Summary of Care ---
Author Name Unknown Organization [facility] Address [address] [facility] [place] [address] Phone [phone] Care Team Providers Care Bar Gauger And Lubricator Tender Name Role Phone Elissa Carrero MD Primary Care Provider Reason for Visit * Reason Onset Date Comments Precert Future 09/06/2023 Keytruda Encounter Details Date Type Department Care Team (Late st Contact Info) Description 09/06/2023 Telephone Hematology/Oncology Sergio Tammy [place] [address] [place] [address] Romel Perez MD [address] [place] [address] Precert Future (Keytruda) Allergies Active Allergy Reactions [...] 2:07 PM EST Order received for Keytruda. [place] plan adjusted. Waiting for auth. Consent signed 09/05/23. Hep B Labs 07/04/22. Nurse education scheduled for today. documented in this encounter Plan of Treatment Upcoming Encounters Date Type Department Care Team (Late st Contact Info) Description 09/06/2023 2:30 PM EST Nurse Only Hematology/Oncology [facility] [address] [place] [address] [place], Nurse Hem Onc [facility] 200 [facility] [place] [address] Arrived 09/19/2023 1:00 PM EST Office Visit Urology, [place] [address] [place] [address] Nabeel Alvarado MD [address] [place] [address] 11/23/2023 10:15 AM EST Office Visit Family Medicine, [facility] EMSO 7095 [facility] [place] [address] [place] [phone] Elissa Carrero MD 7095 [facility] [address] [place] [address] 05/13/2024 2:00 PM EDT Office Visit Nephrology, Gianluca Munoz 200 Gianluca [address] [place] [address] Geraldo Sheehan MD 200 [facility] [place] [address] Health Maintenance Due Date Last Done Comments Depression Screening 1957 Albumin/Creatinine Ratio 02/07/1964 CKD PHOS USE SMARTSET 20312 02/07/1963 Zoster Vaccines (2 of 3) 10/29/2013 09/03/2013 COVID-19 Vaccine ( season) 2023 01/09/2022, 06/28/2021, 11/10/2020, Additional history exists GFR 02/13/2024 08/15/2023, 06/19, 04/09/2023, Additional history exists CKD HGB USE SMARTSET 99180 08/15/202408/15, 08/15/2023, 07/17/2023, Additional history exists DTaP,Tdap,and [...] the patient have Health Care Power of Boiler Helper? Yes, not currently available Code Status [...] the patient have Health Care Power of Boiler Helper? No Care Teams Bar Gauger And Lubricator Tender Relationship Specialty Start Date End Date Elissa Carrero MD [address] [address] PCP - General Family Medicine 12/29/22 documented as of this encounter
--- OUTSIDE RECORDS SUMMARY | 2023-11-20 06:11 | External Medical Summary | Summary of Care ---
Author Name Unknown Organization [facility] Address [address] [facility] [place] [address] Phone [phone] Care Team Providers Care Paleology Teacher Name Role Phone Elissa Carrero MD Primary Care Provider Encounter Details Date Type Department Care Team (Late st Contact Info) Description 09/06/2023 Orders Only Hematology/Oncology [place] Derrick Sanchez [address] [facility] [place] [address] Romel Perez MD [address] [place] [address] Cancer of left renal pelvis (HCC)*; Encounter for long-term (current) use of medications [...] Nurse Only Hematology/Oncology [place] Der[place] Sanchez [address] [facility] [place] [address] Tammy, Nurse Hem Onc [facility] [address] [facility] [place] [address] Arrived 09/19/2023 1:00 PM EST Office Visit Urology, [place] [address] [place] [address] Nabeel Alvarado MD [address] [place] [address] 11/23/2023 10:15 AM EST Office Visit Family Medicine, [facility] [address] [facility] [address] [place] [phone] Elissa Carrero MD 7095 [facility] [address] [place] [address] 05/13/2024 2:00 PM EDT Office Visit Nephrology, [place]luc[place] Munoz 200 [facility] [place] [address] Geraldo Sheehan MD [address] [facility] [place] [address] Scheduled Orders Name Type Priority Associated Diagnoses Orde r Schedule CBC WITH WBC DIFFERENTIAL Lab STAT Cancer of left renal pelvis (HCC) Every 3 Weeks for 17 Occurrences starting 09/06/2023 until 09/06/2024 COMPREHENSIVE METABOLIC PANEL Lab STAT Cancer of left renal pelvis (HCC) Every 3 Weeks for 17 Occurrences starting 09/06/2023 until 09/06/2024 TSH WITH FREE T4 IF INDICATED Lab STAT Cancer of left renal pelvis (HCC) Encounter for long-term (current) use of medications Every 3 Weeks for 17 Occurrences starting 09/06/2023 until 09/06/2024 Health Maintenance Due Date Last Done Comments Depression Screening 1957 Albumin/Creatinine Ratio 02/07/1964 CKD PHOS USE SMARTSET 24834 02/07/1964 Zoster Vaccines (2 of 3) 10/29/2013 09/03/2013 COVID-19 Vaccine ( season) 2023 01/09/2022, 06/28/2021, 11/10/2020, Additional history exists GFR 02/13/2024 08/15/2023, 06/19, 04/09/2023, Additional history exists CKD HGB USE SMARTSET 39104 08/15/202408/15, 08/15/2023, 07/17/2023, Additional history exists DTaP,Tdap,and [...] Not on filedocumented as of this encounter Visit Diagnoses Diagnosis Cancer of left renal pelvis (HCC)- Primary Encounter for long-term (current) use of medications [...] the patient have Health Care Power of Bellows Assembler? Yes, not currently available Code Status History [...] the patient have Health Care Power of Bellows Assembler? No Care Teams Paleology Teacher Relationship Specialty Start Date End Date Elissa Carrero MD [address] [place] [address] PCP - General Family Medicine 12/29/22 documented as of this encounter
--- OUTSIDE RECORDS SUMMARY | 2023-11-20 06:12 | External Medical Summary | Summary of Care ---
Author Name Unknown Organization [facility] Address [address] [facility] [place] [address] Phone [phone] Care Team Providers Care Netbackup Engineer Name Role Phone Elissa Carrero MD Primary Care Provider Reason for Visit * Reason Onset Date Comments Test Results Imaging Study 09/03/2023 Encounter Details Date Type Department Care Team (Late st Contact Info) Description 09/03/2023 Telephone Hematology/Oncology [facility] [address] [place] [address] Romel Perez MD [address] [place] [address] Test Results Imaging Study Allergies Active Allergy Reactions Criticality Noted Date Comments Lisinopril 07/04/2019 Other reaction(s): Angioedema Piroxicam 10/25/2022 Other reaction(s): muscle spasms documented as of this encounter (statuses as of 09/03/2023) Medications Medication Sig Dispensed Refills Start Date [...] as of this encounter (statuses as of 09/03/2023) Active Problems Problem Noted Date Diagnosed Date [...] as of this encounter (statuses as of 09/03/2023) Resolved Problems Problem Noted Date Diagnosed Date Resolved Date Stage 3a chronic kidney disease 10/27/2022 01/24/2023 Overview: Per CKD protocol documented as of this encounter (statuses as of 09/03/2023) Immunizations Name Administration Dates Next Due COVID-19 [...] Telephone Encounter - Troy Dominguez RN - 09/03/2023 3:52 PM EST ----- Message from Romel Perez MD sent at 09/02/2023 8:16 PM EST ----- Will discuss CT finding on 09/05 documented in this encounter Plan of Treatment Upcoming Encounters Date Type Department Care Team (Late st Contact Info) Description 09/05/2023 10:15 AM EST Office Visit Hematology/Oncology [facility] [address] [place] [address] Romel Perez MD [address] [place] [address] 09/19/2023 1:00 PM EST Office Visit Urology, [place] [address] [place] [address] Nabeel Alvarado MD [address] [place] [address] 11/23/2023 10:15 AM EST Office Visit Family Medicine, [facility] [address] [facility] [address] [place] [phone] Elissa Carrero MD 7095 [facility] [address] [place] [address] 05/13/2024 2:00 PM EDT Office Visit NephrologyGianluca [address] [place] [address] Geraldo Sheehan MD [address] [place] [address] Health Maintenance Due Date Last Done Comments Depression Screening 1957 Albumin/Creatinine Ratio 02/07/1964 CKD PHOS USE SMARTSET 72773 02/07/1964 Zoster Vaccines (2 of 3) 10/29/2013 09/03/2013 COVID-19 Vaccine ( season) 2023 01/09/2022, 06/28/2021, 11/10/2020, Additional history exists Influenza Vaccine (FLU shot) (#1) 2023 06/27/2022, 07/12/2021, 07/13/2020, Additional history exists GFR 02/13/2024 08/15/2023, 06/19, 04/09/2023, Additional history exists CKD HGB USE SMARTSET 20627 08/15/202408/15, 08/15/2023, 07/17/2023, Additional history exists DTaP,Tdap,and Td Vaccines (3 - Td or Tdap) 09/30/2026 09/30/2016, 08/06/2013, 08/16/1990 Pneumococcal Vaccine: 65+ Years Completed 01/14/2016, 08/06/2013 Hepatitis C Screening Completed 11/15/2020 GARDASIL-HPV IMMUNIZATION SERIES Aged Out No longer [...] the patient have Health Care Power of Relocation Commissioner? Yes, not currently available Code Status History [...] the patient have Health Care Power of Relocation Commissioner? No Care Teams Netbackup Engineer Relationship Specialty Start Date End Date Elissa Carrero MD [address] [address] PCP - General Family Medicine 12/29/22 documented as of this encounter
--- OUTSIDE RECORDS SUMMARY | 2023-11-20 06:12 | External Medical Summary | Summary of Care ---
Author Name Unknown Organization [facility] Address [address] [place] [address] Phone [phone] Care Team Providers Care Shorthand Reporter Name Role Phone Elissa Carrero MD Primary Care Provider Reason for Referral * Precert (Within 10 days (routine)) - Authorized Specialty Diagnoses / Procedures Referred By Contac t Referred To Contact Radiology Diagnoses Cancer of left renal pelvis (HCC) Procedures IR VENOUS ACCESS MEDIPORT Romel Perez MD [address] [facility] [place] [address] Referral ID Status Reason Start Date Expiration Date V isits Requested Visits Authorized [id number] Authorized 09/12/2023 999 999 Reason for Visit * Reason Onset Date Comments Follow Up 4wk Medication Administration 09/05/2023 Flu an d/or Pneumo Inj Encounter Details Date Type Department Care Team (Late st Contact Info) Description 09/05/2023 10:15 AM EST Office Visit Hematology/Oncology State Derrick Sanchez [address] [place] [address] [address] Romel Perez MD [address] [place] [address] [address] Cancer of left renal pelvis (HCC)*; Need for prophylactic vaccination and inoculation against influenza Allergies Active Allergy Reactions Criticality Noted Date Comments Lisinopril 07/04/2019 Other reaction(s): Angioedema Piroxicam 10/25/2022 Other reaction(s): muscle spasms documented as of this encounter (statuses as of 09/05/2023) Medications Medication Sig Dispensed Refills Start Date [...] as of this encounter (statuses as of 09/05/2023) Active Problems Problem Noted Date Diagnosed Date [...] as of this encounter (statuses as of 09/05/2023) Resolved Problems Problem Noted Date Diagnosed Date Resolved Date Stage 3a chronic kidney disease 10/27/2022 01/24/2023 Overview: Per CKD protocol documented as of this encounter (statuses as of 09/05/2023) Immunizations Name Administration Dates Next Due COVID-19 mRNA, LNP-s, No Pre serve, 2-Dose Series (Miradia) 01/09/2022,06/28/2021,11/10/2020,10/21 Pneumococcal Conjugate Vacc, 13 Valent (Prevnar) [...] 33 Q uit: 09/17/2001 Smokeless Tobacco: Never Tobacco Cessation:Counseling Given: Not Answered Alcohol Use Standard Drinks/Week Comments Yes 0 [...] Sign Reading Time Taken Comments Blood Pressure 99/63 09/05/2023 10:08 AM EST Pulse 59 09/05/2023 10:08 AM EST Temperature 36.7 C (98 F) 09/05/2023 10: 08 AM EST Respiratory Rate 16 09/05/2023 10:0 8 AM EST Oxygen Saturation 95% 09/05/2023 10: 08 AM EST Inhaled Oxygen Concentration - - Weight 75.7 kg (166 lb 12.8 oz) 023 10:08 AM EST Height 162.6 cm (5' 4") 09/05/2023 10:0 8 AM EST Body Mass Index 28.63 09/05/2023 10:08 AM EST documented in this encounter Functional Status [...] as of this encounter Progress Notes * Sulma Stiles CMA - 09/05/2023 10:32 AM EST PRE - ADMINISTRATION DOCUMENTATION Are you experiencing any cold symptoms or fever? No Have you had Guillain-[place] Syndrome (an illness that causes paralysis) within the last 6 weeks? No Have you had the flu shot in the past? YES Have you ever had a reaction to the flu shot? No Sulma Stiles CMA, 09/05/2023 10:32 AM Immunization Administration Documentation Time Out Procedure Performed: Yes Patient Identified (Ask Name/Date of ): Yes Does the patient have a fever greater than 101 degrees today? No Patient allergic to latex? No VFC Stock: Yes, Does this patient qualify for immunization through the VFC program because he/she (check only one): Yes-is enrolled in Medicaid Immunization(s) verified: Yes, Immunization Name: Flu, VIS Sheet(s) given: Yes Verified Side and Site: Yes Verified Shot(s) with Parent(s)/Patient: Yes * Rmoel Perez MD - 09/05/2023 10:09 AM EST Outpatient Consult Note Data Source: Patient, Epic record. Data Source: Patient, Epic record. 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 Received 4 cycles of adjuvant chemotherapy including combination of gemcitabine and carboplatin. Received last dose on 09/28/2022. Oncologic History : 78-year-old male with a past medical history significant for hypertension, hyperlipidemia, GERD, BPH, bladder cancer and chronic back pain was recently found to have abnormality on the CT urogram andfilling defect of the left renal pelvis. Patient [...] history is negative for any hematology/oncology problem Follow-up PET scan was done on 07/20/2023 which shows new nodularity in the left nephrectomy bed measuring 1.2 x 0.9 cm with the SUV of 1.9. There were also 2 adjacent newly hypermetabolic distal para-aortic/left common iliac lymph nodes increase in size from the prior examination with SUV of 4.7. 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 Received 4 cycles of adjuvant chemotherapy including combination of gemcitabine and carboplatin. Received last dose on 09/28/2022. Oncologic History : 78-year-old male with a past medical history significant for hypertension, hyperlipidemia, GERD, BPH, bladder cancer and chronic back pain was recently found to have abnormality on the CT urogram andfilling defect of the left renal pelvis. Patient [...] history is negative for any hematology/oncology problem Follow-up PET scan was done on 07/20/2023 which shows new nodularity in the left nephrectomy bed measuring 1.2 x 0.9 cm with the SUV of 1.9. There were also 2 adjacent newly hypermetabolic distal para-aortic/left common iliac lymph nodes increase in size from the prior examination with SUV of 4.7. Dr. Alvarado, Heinric response about PET scan finding: Given the observation that he had both disease in the renal bed and retroperitoneal lymph nodes, itis more likely than not that he has systemic disease. I relooked at his path report and this development is not surprising. Interval History: Follow-up CT scan done on [...] was negative. Urine cytology is also negative. LABS/IMAGING: Results for orders placed or performed during the hospital encounter of 11/12/17 GLUCOSE METER STAT STRIP Result Value Ref Range Glucose Meter 128 (H) 70 - 120 mg/dL TYPE AND SCREEN Result Value Ref Range SAMPLE EXPIRES 11/16/2017 ABO/RH(D) A POSITIVE Red Blood Cell Antibody Screen NEGATIVE ABO/RH Result Value Ref Range ABO/RH(D) A POSITIVE REVIEW OF SYSTEMS: General: No Fever, chills, night sweats, or weight loss. HEENT: No change in visual acuity, blurred or double vision. No epistaxis, facial pain, nasal discharge or change in hearing. Denies dysphagia, no muscosal ulceration, or sores noted. Cardiovascular: No chest pain, THURSTON, or palpitations Respiratory: No shortness of breath, cough, hemoptysis, or pleuritic chest pain Gastrointestinal: No abdominal pain, nausea, vomiting, diarrhea, rectal pain or bleeding Genitourinary: Denies Hematuria or dysuria Musculoskeletal: Generalized weakness and fatigue Psychiatric: No vegetative signs of depression Endocrine: No symptoms of hypothyroidism or hyperglycemia Hematologic: No bleeding or lymph nodes noted As mentioned above, all of the systems were reviewed in full and are unremarkable. Past Medical History: Diagnosis Date Bladder cancer (HCC) 04/18/2017 Former smoker 3ppd for 33 years GERD (gastroesophageal reflux disease) Hyperlipidemia Hypertension Vascular disease Current Outpatient Medications Medication Sig Dispense Refill [...] bedtime as needed for Heartburn. 90Tablet 3 No current facility-administered medications for this visit. Social History Tobacco Use Smoking status: Former Packs/day: 3.00 Years: 33.00 Additional pack years: 0.00 Total pack years: 99.00 Types: Cigarettes Quit date: 09/17/2001 Years since quittin.9 Smokeless tobacco: Never Vaping Use Vaping Use: Never used Substance Use Topics Alcohol use: Yes Comment: rarely Drug use: No Review of patient's allergies indicates: Allergen Reactions Lisinopril Other reaction(s): Angioedema Piroxicam Other reaction(s): muscle spasms PHYSICAL EXAMINATION: General Appearance: Healthy appearing patient in no acute distress BP 99/63 (BP Site: Left Arm, BP Position: Sitting, BP Cuff Size: Regular) | Pulse 59 | Temp 36.7 C (98 F) (Tympanic) | Resp 16 | Ht 1.626 m (5' 4") | Wt 75.7 kg (166 lb 12.8 oz) | SpO2 95% | BMI 28.63 kg/m | BSA 1.85 m Vitals reviewed. HEENT: No oral or pharyngeal masses, ulceration or thrush noted, no sinus tenderness. Neck is supple with no thyromegaly or JVD noted. Lymph Nodes: No lymphadenopathy noted in the occipital, pre and post auricular, cervical, supra andinfraclavicular, axillary, epitrochlear, inguinal, and popliteal region. Lungs/Thorax: Clear to auscultation, no accessory muscles of respiration being used. Heart: Regular rate and rhythm, normal S1, S2 Abdomen: Soft, nontender, bowel sounds present, no appreciable hepatosplenomegaly, no palpable masses Extremeties: Good pulses bilaterally, no peripheral edema. ASSESSMENT: 78-year-old male with past medical history significant for high blood pressure, hyperlipidemia, GERD BPH, bladder cancer and chronic back pain was recently found to have abnormality on the CT urogramand filling defect of the left renal pelvis. [...] with treatment and signed the consent form. I will also refer the patient to IR for the placement of Port-A-Cath. PLAN: As above. He will return to clinic for follow-up in 3 weeks after receiving 1st dose of Keytruda. The patient voiced understanding of all of the above. All questions and concerns were addressed in an apparently satisfactory manner. Romel Perez MD (This note was completed using the dictation program Fluency Direct. As such, there may be misspellings, word substitutions, or other variations that should not change the essence of the clinical content of this encounter note. If there is need for further clarification, please direct questions to me.) documented in this encounter Nursing Notes * Sulma Stiles CMA - 09/05/2023 10:08 AM EST Patient identifed by name and birthdate Do you have any concerns about pain management for today's visit? No Living Will or Advance Directive for Health Care as noted on the problem list. [facility] is a way you can talk to your provider on line through e-mail. Would you like to sign up? I can activate it for you? NO Filed Vitals: 09/05/23 1008 BP: 99/63 Pulse: 59 Resp: 16 Temp: 36.7 C (98 F) TempSrc: Tympanic SpO2: 95% Weight: 75.7 kg (166 lb 12.8 oz) Height: 1.626 m (5' 4") Patient was instructed to not get up on the exam table/exam chair until directed and assisted by their provider; patient is to remain seated in the chair/ wheelchair/ exam table/ exam chair for fall prevention and safety reasons. Patient is aware to have assistance to step down off exam table/exam chair with personnel. Patient voiced full comprehension of instructions. documented in this encounter Plan of Treatment Upcoming Encounters Date Type Department Care Team (Late st Contact Info) Description 09/06/2023 2:30 PM EST Nurse Only Hematology/Oncology [facility] [place] [address] [place] [address] [place], Nurse Hem Onc [place] [address] [place] [address] 09/19/2023 1:00 PM EST [facility] [place] [address] [facility] [address] Nabeel Alvarado MD [address] [facility] [place] [address] 11/23/2023 10:15 AM EST Office Visit Family Medicine, [facility] [address] [facility] [address] [place] [address] Elissa Carrero MD 70[address] [facility] [address] [place] [address] 05/13/2024 2:00 PM EDT Office Visit Nephrology, Gianluca Munoz 200 [facility] [place] [address] Geraldo Sheehan MD [address] [facility] [place] [address] Scheduled Orders Name Type Priority Associated Diagnoses Orde r Schedule IR VENOUS ACCESS MEDIPORT Medical Imaging Routine Cancer of left renal pelvis (HCC) Expected: 09/12/2023, Expires: 10/06/2024 Health Maintenance Due Date Last Done Comments Depression Screening 1957 Albumin/Creatinine Ratio 02/07/1964 CKD PHOS USE SMARTSET 87260 02/07/1964 Zoster Vaccines (2 of 3) 10/29/2013 09/03/2013 COVID-19 Vaccine ( season) 2023 01/09/2022, 06/28/2021, 11/10/2020, Additional history exists GFR 02/13/2024 08/15/2023, 06/19, 04/09/2023, Additional history exists CKD HGB USE SMARTSET 24626 08/15/202408/15, 08/15/2023, 07/17/2023, Additional history exists DTaP,Tdap,and [...] Cancer of left renal pelvis (HCC)- Primary Need for prophylactic vaccination and inoculation against influenza documented in this encounter Advance Directives Latest [...] the patient have Health Care Power of Electrical Maintenance Man? Yes, not currently available Code Status History [...] the patient have Health Care Power of Electrical Maintenance Man? No Care Teams Shorthand Reporter Relationship Specialty Start Date End Date Elissa Carrero MD [address] [address] PCP - General Family Medicine 12/29/22 documented as of this encounter
--- OUTSIDE RECORDS SUMMARY | 2023-11-20 06:12 | External Medical Summary | Summary of Care ---
Author Name Unknown Organization [facility] Address [address] [place] [address] Phone [phone] Care Team Providers Care Dye Maker Name Role Phone Elissa Carrero MD Primary Care Provider Reason for Visit * Reason Onset Date Comments Appointment 09/05/2023 Encounter Details Date Type Department Care Team (Late st Contact Info) Description 09/05/2023 Telephone Hematology/Oncology, [facility] 400 [facility] [place] [address] Romel Perez MD 200 [place] [address] Appointment Allergies Active Allergy Reactions Criticality Noted [...] Telephone Encounter - Keyla Hudson OSA - 09/05/2023 10:40 AM EST IR- Please reach out to patient regarding: Order Questions Question Answer Is this Procedure for Evaluation, Venous Access Insertion or Removal? Venous Access Insertion Mediport Type Single Lumen Reason for Procedure for chemo Where Will The Procedure Be Performed? [facility] Thanks! documented in this encounter Plan of Treatment Upcoming Encounters Date Type Department Care Team (Late st Contact Info) Description 09/06/2023 2:30 PM EST Nurse Only Hematology/Oncology [facility] [place] [address] [place] [address] [place], Nurse Hem Onc [facility] [address] [place] [address] 09/19/2023 1:00 PM EST Office Visit Urology, [place] [address] [place] [address] Nabeel Alvarado MD [address] [place] [address] 11/23/2023 10:15 AM EST Office Visit Family Medicine, [facility] [address] [facility] [address] [place] [phone] Elissa Carrero MD 70[address] [facility] [address] [place] [address] 05/13/2024 2:00 PM EDT Office Visit Nephrology, Gianluca Munoz 200 [facility] [place] [address] Geraldo Sheehan MD 200 [facility] [place] [address] Health Maintenance Due Date Last Done Comments Depression Screening 1957 Albumin/Creatinine Ratio 02/07/1964 CKD PHOS USE SMARTSET 41374 02/07/1964 Zoster Vaccines (2 of 3) 10/29/2013 09/03/2013 COVID-19 Vaccine ( season) 2023 01/09/2022, 06/28/2021, 11/10/2020, Additional history exists GFR 02/13/2024 08/15/2023, 06/19, 04/09/2023, Additional history exists CKD HGB USE SMARTSET 82840 08/15/202408/15, 08/15/2023, 07/17/2023, Additional history exists DTaP,Tdap,and [...] the patient have Health Care Power of Pharmacy Care Coordinator? Yes, not currently available Code Status History [...] the patient have Health Care Power of Pharmacy Care Coordinator? No Care Teams Dye Maker Relationship Specialty Start Date End Date Elissa Carrero MD [address] [place] [address] PCP - General Family Medicine 12/29/22 documented as of this encounter
--- OUTSIDE RECORDS SUMMARY | 2023-11-20 06:12 | External Medical Summary | Summary of Care ---
Author Name Unknown Organization [facility] Address [address] [place] [address] Phone [phone] Care Team Providers Care Flight Radio Operator Name Role Phone Elissa Carrero MD Primary Care Provider Reason for Visit * Auth/Cert Specialty Diagnoses / Procedures Referred By Carolina t Referred To Contact Diagnoses Malignant neoplasm of urinary bladder, unspecified site (HCC) Malignant neoplasm of urinary bladder, unspecified site (HCC) [C67.9] Procedures CYSTOSCOPY CYSTOURETHROSCOPY Referral ID Status Reason Start Date Expiration Date Visits Re quested Visits Authorized [id number] Encounter Details Date Type Department Care Team (Latest Contact Info) Description 08/29/2023 9:29 AM EST - 08/29/2023 11:58 AM EST Hospital Encounter [facility] [address] [place] [address] Nabeel Alvarado MD [address] [place] [address] Discharge Disposition: Home - Self Care Allergies Active Allergy Reactions Criticality Noted Date Comments Lisinopril 07/04/2019 Other reaction(s): Angioedema Piroxicam 10/25/2022 Other reaction(s): muscle spasms documented as of this encounter (statuses as of 08/30/2023) Medications Medication Sig Dispensed Refills Start Date [...] as of this encounter (statuses as of 08/30/2023) Active Problems Problem Noted Date Diagnosed Date [...] as of this encounter (statuses as of 08/30/2023) Resolved Problems Problem Noted Date Diagnosed Date Resolved Date Stage 3a chronic kidney disease 10/27/2022 01/24/2023 Overview: Per CKD protocol documented as of this encounter (statuses as of 08/30/2023) Immunizations Name Administration Dates Next Due COVID-19 mRNA, LNP-s, No Pre serve, 2-Dose Series (Zerply) 01/09/2022,06/28/2021,11/10/2020,10/21 Pneumococcal Conjugate Vacc, 13 Valent (Prevnar) [...] Sign Reading Time Taken Comments Blood Pressure 129/72 08/29/2023 11:15 AM EST Pulse 59 08/29/2023 11:15 AM EST Temperature 36 C (96.8 F) 08/29/2023 11:15 AM EST Respiratory Rate 12 08/29/2023 11:15 AM EST Oxygen Saturation 95% 08/29/2023 11:15 AM EST Inhaled Oxygen Concentration - - Weight 73.5 kg (162 lb 1.6 oz) 08/29/2023 9:43 A M EST Height 162.6 cm (5' 4") 08/29/2023 9:43 AM EST Body Mass Index 27.82 08/29/2023 9:43 AM EST documented in this encounter Functional [...] No 05/23/2022 documented as of this encounter Discharge Instructions * Discharge Instr - AVS* Nik Nickerson MD - 08/29/2023 11:43 AM EST Discharge Date: 08/29/2023 Check your Patient Education Brochure for further information. You may call [phone] between the hours of 7:00 a.m. - 8:00 p.m. for the first 24 hours. After the initial 24 hours, please contact your physician at [phone]. After 5:00 p.m. or on the weekend, call [phone] and ask for thephysician customer service and sales consultant. [facility] is available 24 hours a day at . The information below provides you with the instructions and the list of medications you need to betaking following discharge from the hospital. If you have any questions, please ask before leaving.Please carry this letter with you when you see your doctor in the clinic. If you have questions, you can reach us at the numbers above. Diet: Start with clear liquids (jello, tea, apple juice), avoid dairy products (milk, cheese, pudding, ice cream) and fried, greasy foods. Progress to prescribed diet as tolerated. If nausea should occur, have clear liquids only until soft foods can be tolerated. Activity: A responsible adult must be with the patient for 24 hours after surgery. Rest today and tomorrow, and then increase activity as tolerated. DO NOT drive, operate any appliances and/or machinery or sign legal documents for 24 hours. Warnings: Call promptly in case of: A. Excessive bleeding B. Fever greater than 101 degrees F (38.3 degrees C) C. Persistent nausea and vomiting D. Redness, swelling or pus-like drainage E. Pain that is not relieved by the medicines mentioned above Special Instructions: You had instrumentation of your urethra and bladder. You will likely have burning or light bleedingwhen you urinate - this is normal. Drink plenty of fluids, preferably water, to dilute any blood inyour urine. Additionally, dilute urine will burn less with urination. Follow up A follow up appointment will be made for you with Dr. Alvarado in one year with cystoscopy You willbe called with this appointment. If you are not contacted about this appointment -within 1 week youshould call [phone] confirm the date. See your primary care physician (Elissa Carrero MD) as needed. Future Appointments Appt Date/Time Provider Department 08/31/2023 10:00 AM CT1 [facility] Radiology [address] 09/05/2023 10:15 AM Romel Perez MD Hematology/Oncology [facility] 09/19/2023 1:00 PM [facility]23 10:15 AM Elissa Carrero MD [facility] 05/13/2024 2:00 PM Geraldo Sheehan MD Nephrology, [facility] documented in this encounter Progress Notes * Nik Nickerson MD - 08/29/2023 11:20 AM EST [facility] [address] [facility] [address] OUTPATIENT SURGERY DISCHARGE SUMMARY NOTE Name: Drew Rosen Location: [place] [facility] Date: 08/29/2023 Time: 11:20 AM Surgery Date: 08/29/2023 Procedure: Procedure(s): CYSTOURETHROSCOPY N/A Surgeon: Surgeon(s): Nabeel Alvarado MD El Miniawi, Mark Nasser, MD Wang, Danielle, MD Discharge Diagnosis: history of high grade T1 urothelial carcinoma After examination of this patient, I have determined he is ready for discharge to home when the patient meets criteria. Discharge instructions were given to the patient. documented in this encounter H&P Notes * Nabeel Alvarado MD - 08/29/2023 9:56 AM EST HISTORY AND PHYSICAL EXAMINATION - Urology Name: Drew Rosen Date: 08/29/2023 Time: 9:56 AM Location: [place] [facility] PCP: Elissa Carrero MD [address] [address] HPI: This 78 year old male presented to the clinic last on 08/15/2023, for pre- operative H&P for planned surgery. Patient is tentatively scheduled for cystoscopy for surveillance by Dr. Ralf Alvarado on 08/29/2023. Last surveillance cystoscopy 01/17/2023. 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 He received 4 cycles of adjuvant chemotherapy including combination of gemcitabine and carboplatin. Received last dose on 09/28/2022. Final pathology ypT3 7.4cm UC of left renal pelvis with extension into perirenal fat, LVI+, margin -. Saw [facility] most recently 08/01/23, with plan to repeat CT in 4 weeks due to eye surgery holding off immunotherapy. He had most recent PET scan was done on 07/20/2023 which shows new nodularity in the left nephrectomy bed measuring 1.2 x 0.9 cm with the SUV of 1.9. There were also 2 adjacent newly hypermetabolic distal para-aortic/left common iliac lymph nodes increase in size from the prior examination with SUV of 4.7. He experiences nocturia 1 episode per night which is not bothersome. The patient denies hematuria, dysuria, obstructive or irritative voiding complaints, flank pain, f/c, n/v/c/d. The patient denies h/o TIA/CVA, KS, sleep apnea, DVT/PE, or DM. No blood thinners aside from 81mg ASA, last dose 12 evening. No recent gross hematuria. PAST MEDICAL HISTORY: Past Medical History Past Medical History: Diagnosis Date Bladder cancer (HCC) 04/18/2017 Former smoker 3ppd for 33 years GERD (gastroesophageal reflux disease) Hyperlipidemia Hypertension Vascular disease Problem List Patient Active Problem List Diagnosis Code GERD (gastroesophageal reflux disease) K21.9 HTN, goal below 130/80 I10 BPH without obstruction/lower urinary tract symptoms N40.0 Vascular disease I99.9 Hyperlipidemia with target LDL less than 130 E78.5 Bladder cancer (HCC) C67.9 Malignant neoplasm of overlapping sites of bladder (HCC) C67.8 Cancer of left renal pelvis (HCC) C65.2 Encounter for antineoplastic chemotherapy Z51.11 Allergic rhinitis J30.9 Fatigue R53.83 LPRD (laryngopharyngeal reflux disease) K21.9 Narcolepsy G47.419 Chronic back pain M54.9, G89.29 Other specified anemias D64.89 Transitional cell carcinoma (HCC) C68.9 Impaired fasting glucose R73.01 Chronic kidney disease, stage 3b (HCC) N18.32 PAST SURGICAL HISTORY: Past Surgical History Past Surgical History: Procedure Laterality Date APPENDECTOMY W/OTHER PROCEDURE BLADDER INSTILLATION, ANTICARCINOGENIC N/A 04/10/2018 BLADDER INSTILLATION OF ANTICARCINOGENIC AGENT performed by Dean Altamirano MD at [place] [facility] BLADDER INSTILLATION, ANTICARCINOGENIC N/A 07/11/2018 BLADDER INSTILLATION OF ANTICARCINOGENIC AGENT performed by Dean Altamirano MD at [place] [facility] CYSTO/URETERO W/LITHOTRIPSY Left 09/06/2018 CYSTOURETHROSCOPY URETEROSCOPY WITH LITHOTRIPSY AND STENT INSERTION performed by Tawana Munoz MD [facility] CYSTOSCOPY N/A 01/17/2023 CYSTOURETHROSCOPY performed by Nabeel Alvarado MD at [place] [facility] CYSTOSCOPY/INSERTION OF STENT Left 11/13/2017 CYSTOURETHROSCOPY WITH INSERTION URETERAL STENT performed by Dean Altamirano MD at [place] [facility] CYSTOSCOPY/INSERTION OF STENT Left 04/10/2018 CYSTOURETHROSCOPY WITH INSERTION URETERAL STENT performed by Dean Altamirano MD at [place] [facility] CYSTOSCOPY/INSERTION OF STENT Left 07/11/2018 CYSTOURETHROSCOPY WITH INSERTION URETERAL STENT performed by Dean Altamirano MD at [place] [facility] CYSTOSCOPY/INSERTION OF STENT Left 05/23/2022 CYSTOURETHROSCOPY WITH INSERTION URETERAL STENT performed by Nabeel Alvarado MD at [place] [facility] CYSTOSCOPY/TREAT LGE BLADDER TUMOR N/A 11/13/2017 CYSTOURETHROSCOPY WITH FULGURATION LARGE BLADDER TUMOR performed by Dean Altamirano MD at [place] [facility] CYSTOSCOPY/TREAT LGE BLADDER TUMOR N/A 04/10/2018 CYSTOURETHROSCOPY WITH FULGURATION LARGE BLADDER TUMOR performed by Dean Altamirano MD at [place] [facility] CYSTOSCOPY/TREAT LGE BLADDER TUMOR N/A 07/11/2018 CYSTOURETHROSCOPY WITH FULGURATION LARGE BLADDER TUMOR performed by Dean Altamirano MD at [place] [facility] CYSTOSCOPY/TREAT LGE BLADDER TUMOR Left 04/04/2022 CYSTOURETHROSCOPY WITH FULGURATION LARGE BLADDER TUMOR performed by Nabeel Alvarado MD at OR [facility] CYSTOURETERO W/BIOPSY Left 11/13/2017 CYSTOURETHROSCOPY URETEROSCOPY WITH BIOPSY AND OR FULGURATION LESION performed by Dean Altamirano MD at [place] [facility] CYSTOURETERO W/BIOPSY Left 09/06/2018 CYSTOURETHROSCOPY URETEROSCOPY WITH BIOPSY AND OR FULGURATION LESION performed by Tawana Munoz MD at OR [facility] CYSTOURETERO W/BIOPSY Left 04/04/2022 CYSTOURETHROSCOPY URETEROSCOPY WITH BIOPSY AND OR FULGURATION LESION performed by Nabeel Alvarado MD at [place] [facility] FLUORO PYELOGRAM RETROGRADE Left 11/13/2017 UROGRAHY, RETROGRADE, WITH OR WITHOUT KUB performed by Dean Altamirano MD at [place] [facility] FLUORO PYELOGRAM RETROGRADE Left 04/10/2018 UROGRAHY, RETROGRADE, WITH OR WITHOUT KUB performed by Dean Altamirano MD at [place] [facility] FLUORO PYELOGRAM RETROGRADE Left 07/11/2018 UROGRAHY, RETROGRADE, WITH OR WITHOUT KUB performed by Dean Altamirano MD at [place] [facility] FLUORO PYELOGRAM RETROGRADE Left 09/06/2018 UROGRAHY, RETROGRADE, WITH OR WITHOUT KUB performed by Tawana Muonz MD at [place] [facility] INFORMATION leg stents per pt INFORMATION Left left forearm repair was done in [place] LAPARO REMOVE K/URETER Left 05/23/2022 ROBOTIC LAPAROSCOPIC NEPHRECTOMY WITH TOTAL URETERECTOMY performed by Nabeel Alvarado MD at [place] [facility] MISCELLANEOUS ORDER ([facility] ONLY) 2012 lumbar surgery . Multipel back surgeries in past REMOVAL OF KIDNEY STONE, OVER 2CM N/A 11/13/2017 PERCUTANEOUS NEPHROSTOLITHOTOMY OVER 2CM performed by Dean Altamirano MD at [place] [facility] REMOVAL OF PROSTATE (TURP) N/A 11/13/2017 TRANSURETHRAL RESECTION PROSTATE ELECTROSURGICAL performed by Dean Altmairano MD at [place] [facility] FAMILY HISTORY: Family History Problem Relation Age of Onset Other (stomach aneurysm) Mother Heart attack Brother Other (stomach aneurysm) Aunt (Unspecified) Paternal SOCIAL HISTORY: Social History Socioeconomic History Marital status: Spouse [...] on file Housing Stability: Not on file Current Medications Current Outpatient Medications Medication Sig Dispense Refill [...] No current facility-administered medications for this visit. Review of patient's allergies indicates: Allergen Reactions Lisinopril Other reaction(s): Angioedema Piroxicam Other reaction(s): muscle spasms ROS EXAM: CONSTITUTIONAL: No change in weight, No weakness, No fatigue, and No fevers, sweats, or chills CARDIOVASCULAR: No chest pain, No shortness of breath, No dyspnea on exertion, No orthopnea, No paroxysmal nocturnal dyspnea, No edema, No palpitations, and No syncope PULMONARY: No cough, sputum, or hemoptysis, No wheezing, No rales, No shortness of breath, and No recent change in breathing GASTROINTESTINAL: No abdominal pain, No change in bowel habits, No significant heartburn, No significant change in appetite, No nausea, vomiting, diarrhea, or constipation, No hematemesis, No blood in stools or black tarry stools, No abdominal bloating or early satiety, and No dysphagia : As above NEUROLOGIC: Normal balance, No headaches, No seizures, and No weakness All other systems normal/negative PHYSICAL EXAMINATION: Most Recent Vital Signs: BP: 145 mmHg/76 mmHg (08/29/23944) Pulse: 56 (08/29/23944) Temp: 36 C (08/29/23944) Resp: 19 (08/29/23944) SpO2: 100 % (08/29/23944) General: alert, awake, oriented to person and place and situation, no distress Skin: Warm, dry, w/o rash or diaphoresis HEAD: Normocephalic, atraumatic Heart: regular rate, regular rhythm, no murmur Chest: clear to auscultation bilaterally Abdomen: soft, non-tender, non-distended, normal bowel sounds Back: no costo-vertebral angle tenderness, well healed lumbar incisional scar from prior back surgery Extremities: no edema Impression: 1Dayron Rosen is a 78 year old male with 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 Nabeel Alvarado on 08/29/2023 Sonali Dsouza MD 08/29/2023 9:56 AM documented in this encounter Nursing Notes * Leonie Lyons RN - 08/29/2023 11:15 AM EST Dual Licensed Skin Assessment completed by Leonie Lyons RN and Trisha Hawk RN. The patient is/has a N/A Skin Breakdown (includes non blanchable erythema): No * Susu Judd RN - 08/29/2023 10:17 AM EST Dual Licensed Skin Assessment completed by Jordyn cody. The patient is/has a N/A Skin Breakdown (includes non blanchable erythema): No documented in this encounter Plan of Treatment Upcoming Encounters Date Type Department Care Team (Late st Contact Info) Description 08/31/2023 10:00 AM EST Imaging Radiology [address] [place] [address] 09/05/2023 10:15 AM EST Office Visit Hematology/Oncology [facility] [place] [address] [facility] [place] [address] Romel Perez MD [address] [facility] [place] [address] 09/19/2023 1:00 PM EST Office Visit Urology, [place] [address] [place] [address] Nabeel Alvarado MD [address] [place] [address] 11/23/2023 10:15 AM EST Office Visit Family Medicine, [facility] [address] [facility] [address] [place] [id number] Elissa Carrero MD [address] [facility] [address] [place] [address] 05/13/2024 2:00 PM EDT Office Visit Nephrology, [facility] [address] [facility] [address] [place], [place] [address] Geraldo Sheehan MD [address] [facility] [place] [address] Pending Results Name Type Priority Associated Diagnoses Date /Time CYTOLOGY Pathology Routine Malignant neoplasm of urinary bladder, unspecified site (HCC) 08/29/2023 10:46 AM EST Scheduled Orders Name Type Priority Associated Diagnoses Orde r Schedule CYTOLOGY Pathology Routine Malignant neoplasm of urinary bladder, unspecified site (HCC) Release Upon Ordering for 1 Occurrences starting 08/29/2023, 1 completed Health Maintenance Due Date Last Done Comments Depression Screening 1957 Albumin/Creatinine Ratio 02/07/1964 CKD PHOS USE SMARTSET 38958 02/07/1963 Zoster Vaccines (2 of 3) 10/29/2013 09/03/2013 COVID-19 Vaccine ( - season) 2023 01/09/2022, 06/28/2021, 11/10/2020, Additional history exists Influenza Vaccine (FLU shot) (#1) 2023 06/27/2022, 07/12/2021, 07/13/2020, Additional history exists GFR 02/13/2024 08/15/2023, 06/19, 04/09/2023, Additional history exists CKD HGB USE SMARTSET 18756 08/15/202408/15, 08/15/2023, 07/17/2023, Additional history exists DTaP,Tdap,and [...] as of this encounter Visit Diagnoses Diagnosis Malignant neoplasm of urinary bladder, unspecified site (HCC) documented in this encounter Active and Recently Administered Medications Times are shown in EST. Scheduled Medication Order 08/27/2023 08/28/2023 08/29/2023 ceFAZolin in dextrose (Ancef) ivpb 2 g (COMPLETED) 2 g, IV Piggyback, ONCALL, 1 dose, Starting on Sun08/29/23 at 0951, Until Sun08/29/23 at 1029 1029 (Given - Provid er: Divina Guevara CRNA) PRN Medication Order 08/27/2023 08/28/2023 08/29/2023 sodium chloride IR 0.9 % irrigation (CANCELED) ONCE PRN INTRA PROCEDURE, Starting on Sun08/29/23 at 1040, Until Sun08/29/23 at 1053, Intra-Op 1040 (Given - Provid er: Nabeel Alvarado MD - Comment: PRN Intraop) documented in this encounter Advance Directives Latest [...] patient have Health Care Power of Pharmacy Messenger? Yes, not currently available Code Status History [...] patient have Health Care Power of Pharmacy Messenger? No Care Teams Flight Radio Operator Relationship Specialty Start Date End Date Elissa Carrero MD [address] [address] PCP - General Family Medicine 12/29/22 documented as of this encounter
--- OUTSIDE RECORDS SUMMARY | 2023-11-20 06:13 | External Medical Summary | Summary of Care ---
Author Name Unknown Organization [facility] Address [address] [place] [address] Phone [phone] Care Team Providers Care Pressure Supervisor Name Role Phone Elissa Carrero MD Primary Care Provider Reason for Visit * Reason Comments HISTORY and PHYSICAL Encounter Details Date Type Department Care Team (Late st Contact Info) Description 08/15/2023 9:30 AM EST Office Visit Urology, [place] [address] [place], [place] [phone] Rojelio Rose PA-C [address], [place] [id number] Malignant neoplasm of overlapping sites of bladder (HCC)*; Pre-op testing; Dysuria Allergies Active Allergy Reactions Criticality Noted Date Comments Lisinopril 07/04/2019 Other reaction(s): Angioedema Piroxicam 10/25/2022 Other reaction(s): muscle spasms documented as of this encounter (statuses as of 08/15/2023) Medications Medication Sig Dispensed Refills Start Date [...] as of this encounter (statuses as of 08/15/2023) Active Problems Problem Noted Date Diagnosed Date [...] as of this encounter (statuses as of 08/15/2023) Resolved Problems Problem Noted Date Diagnosed Date Resolved Date Stage 3a chronic kidney disease 10/27/2022 01/24/2023 Overview: Per CKD protocol documented as of this encounter (statuses as of 08/15/2023) Immunizations Name Administration Dates Next Due COVID-19 [...] Sign Reading Time Taken Comments Blood Pressure 104/57 08/15/2023 9:46 AM EST Pulse 59 08/15/2023 9:46 AM EST Temperature 35.7 C (96.3 F) 08/15/2023 9:46 AM ES T Respiratory Rate - - Oxygen Saturation - - Inhaled Oxygen Concentration - - Weight 77.1 kg (170 lb 1 oz) 08/15/2023 9:46 AM EST Height 162.6 cm (5' 4") 08/15/2023 9:46 AM EST Body Mass Index 29.19 08/15/2023 9:46 AM EST documented in this encounter Functional [...] as of this encounter Progress Notes * Rojelio Rose PA-C - 08/15/2023 9:57 AM EST HISTORY AND PHYSICAL EXAMINATION - Urology Name: Drew Rosen Date: 08/15/2023 Time: 9:57 AM PCP: Elissa Carrero MD [address] [place] [address] C/c Pre-operative History and Physical HPI: This 78 year old male presents to the clinic today, 08/15/2023, for pre- operative H&P for planned surgery. Patient is tentatively scheduled for cystoscopy for surveillance by Dr. Ralf Alvarado on 08/29/2023. Last surveillance cystoscopy 01/17/2023. 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 The patient denies hematuria, dysuria, obstructive or irritative voiding complaints, flank pain, f/c, n/v/c/d. The patient denies h/o TIA/CVA, PA, sleep apnea, DVT/PE, or DM. PAST MEDICAL HISTORY: Past Medical History: Diagnosis Date Bladder cancer (HCC) 04/18/2017 Former smoker 3ppd for 33 years GERD (gastroesophageal reflux disease) Hyperlipidemia Hypertension Vascular disease Patient Active Problem List Diagnosis Code GERD [...] (HCC) N18.32 PAST SURGICAL HISTORY: Past Surgical History: Procedure Laterality Date APPENDECTOMY W/OTHER PROCEDURE BLADDER INSTILLATION, ANTICARCINOGENIC N/A 04/10/2018 BLADDER INSTILLATION OF ANTICARCINOGENIC AGENT performed by Dean Altamirano MD at OR [facility] BLADDER INSTILLATION, ANTICARCINOGENIC N/A 07/11/2018 BLADDER INSTILLATION OF ANTICARCINOGENIC AGENT performed by Dean Altamirano MD at OR [facility] CYSTO/URETERO W/LITHOTRIPSY Left 09/06/2018 CYSTOURETHROSCOPY URETEROSCOPY WITH LITHOTRIPSY AND STENT INSERTION performed by Tawana Munoz MD at[facility] CYSTOSCOPY N/A 01/17/2023 CYSTOURETHROSCOPY performed by Nabeel Alvarado MD at OR [facility] CYSTOSCOPY/INSERTION OF STENT Left 11/13/2017 CYSTOURETHROSCOPY WITH INSERTION URETERAL STENT performed by Dean Altamirano MD at OR [facility] CYSTOSCOPY/INSERTION OF STENT Left 04/10/2018 CYSTOURETHROSCOPY WITH INSERTION URETERAL STENT performed by Dean Altamirano MD at OR [facility] CYSTOSCOPY/INSERTION OF STENT Left 07/11/2018 CYSTOURETHROSCOPY WITH INSERTION URETERAL STENT performed by Dean Altamirano MD at OR [facility] CYSTOSCOPY/INSERTION OF STENT Left 05/23/2022 CYSTOURETHROSCOPY WITH INSERTION URETERAL STENT performed by Nabeel Alvarado MD at OR [facility] CYSTOSCOPY/TREAT LGE BLADDER TUMOR N/A 11/13/2017 CYSTOURETHROSCOPY WITH FULGURATION LARGE BLADDER TUMOR performed by Dean Altamirano MD at OR [facility] CYSTOSCOPY/TREAT LGE BLADDER TUMOR N/A 04/10/2018 CYSTOURETHROSCOPY WITH FULGURATION LARGE BLADDER TUMOR performed by Dean Altamirano MD at OR [facility] CYSTOSCOPY/TREAT LGE BLADDER TUMOR N/A 07/11/2018 CYSTOURETHROSCOPY WITH FULGURATION LARGE BLADDER TUMOR performed by Dean Altamirano MD at OR [facility] CYSTOSCOPY/TREAT LGE BLADDER TUMOR Left 04/04/2022 CYSTOURETHROSCOPY WITH FULGURATION LARGE BLADDER TUMOR performed by Nabeel Alvarado MD at OR [facility] CYSTOURETERO W/BIOPSY Left 11/13/2017 CYSTOURETHROSCOPY URETEROSCOPY WITH BIOPSY AND OR FULGURATION LESION performed by Dean Altamirano MD at OR [facility] CYSTOURETERO W/BIOPSY Left 09/06/2018 CYSTOURETHROSCOPY URETEROSCOPY WITH BIOPSY AND OR FULGURATION LESION performed by Tawana Munoz MD at OR [facility] CYSTOURETERO W/BIOPSY Left 04/04/2022 CYSTOURETHROSCOPY URETEROSCOPY WITH BIOPSY AND OR FULGURATION LESION performed by Nabeel Alvarado MD at OR [facility] FLUORO PYELOGRAM RETROGRADE Left 11/13/2017 UROGRAHY, RETROGRADE, WITH OR WITHOUT KUB performed by Dean Altamirano MD at OR [facility] FLUORO PYELOGRAM RETROGRADE Left 04/10/2018 UROGRAHY, RETROGRADE, WITH OR WITHOUT KUB performed by Dean Altamirano MD at OR [facility] FLUORO PYELOGRAM RETROGRADE Left 07/11/2018 UROGRAHY, RETROGRADE, WITH OR WITHOUT KUB performed by Dean Altamirano MD at OR [facility] FLUORO PYELOGRAM RETROGRADE Left 09/06/2018 UROGRAHY, RETROGRADE, WITH OR WITHOUT KUB performed by Tawana Munoz MD at OR [facility] INFORMATION leg stents per pt INFORMATION Left left forearm repair was done in [place] LAPARO REMOVE K/URETER Left 05/23/2022 ROBOTIC LAPAROSCOPIC NEPHRECTOMY WITH TOTAL URETERECTOMY performed by Nabeel Alvarado MD at OR [facility] MISCELLANEOUS ORDER ([facility] ONLY) 2012 lumbar surgery . Multipel back surgeries in past REMOVAL OF KIDNEY STONE, OVER 2CM N/A 11/13/2017 PERCUTANEOUS NEPHROSTOLITHOTOMY OVER 2CM performed by Dean Altamirano MD at OR [facility] REMOVAL OF PROSTATE (TURP) N/A 11/13/2017 TRANSURETHRAL RESECTION PROSTATE ELECTROSURGICAL performed by Dean Altamirano MD at OR [facility] FAMILY HISTORY: Family History Problem Relation Age [...] file Housing Stability: Not on file Current Outpatient Medications Medication Sig Dispense Refill [...] normal/negative PHYSICAL EXAMINATION: Most Recent Vital Signs: BP 104/57 (BP Site: Left Arm, BP Position: Sitting, BP Cuff Size: Large) | Pulse 59 | Temp 35.7 C(96.3 F) (Tympanic) | Ht 1.626 m (5' 4") | Wt 77.1 kg (170 lb 1 oz) | BMI 29.19 kg/m | BSA 1.87m General: alert, awake, oriented to person and place and situation, no distress Skin: Warm, dry, w/o rash or diaphoresis HEAD: Normocephalic, atraumatic Heart: regular rate, regular rhythm, no murmur Chest: clear to auscultation bilaterally Abdomen: soft, non-tender, non-distended, normal bowel sounds Back: no costo-vertebral angle tenderness, well healed lumbar incisional scar from prior back surgery Extremities: no edema Impression: 1. Pre-operative Examination 2. 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 Ralf Alvarado on 08/29/2023 - Pre-op labs: CBC, BMP, Urine Culture clean catch - Pre-Op diagnostics ordered: EKG ordered - Pre-operative anticoagulation management includes: none - Reviewed the rationale, risks, and benefits of the procedure. The patient has no questions regarding the risks of surgery. - Pt was instructed to notify clinic with any changes to health status prior to procedure. - Pt will receive preop antibiotics and early mobilization to decrease surgical risks. - Pt knows to be NPO (nothing by mouth) after midnight the night before surgery. Pt informed to take any necessary meds with sips of water only. - The following PREP was reviewed and given to the patient: none - Patient handouts given for: Adverse reaction, patient instructions - Patient's questions regarding the preparations as well as the procedure were answered to the bestof my ability. Patient was agreeable to everything that was discussed and displayed an understanding of all information given. Will proceed as planned. - Consent will be completed day of procedure. Rojelio Rose PA-C Department of Urology [facility] 08/15/2023 9:57 AM documented in this encounter Miscellaneous Notes * Addendum Note - Kendra Luna OSA - 08/15/2023 12:28 PM ESTAddended by: KENDRA LUNA on: 08/15/2023 12:28 PM Modules accepted: Orders documented in this encounter Plan of Treatment Upcoming Encounters Date Type Department Care Team (Latest Contact Info) Description 08/27/2023 10:15 AM EST Office Visit Hematology/Oncology Gianluca Munoz [place] [address] [place] [address] Romel Perez MD [address] [place] [address] 08/29/2023 2:00 PM EST Hospital Encounter OR [facility], OPERATING ROOM [facility], [facility] [address] [place] [address] Nabeel Alvarado MD [address] [place] [address] 08/29/2023 2:00 PM EST Anesthesia Event OR [facility], OPERATING ROOM [facility], [facility] [address] [place] [address] Cyril Pena CRNP [address] [place] [address] 08/29/2023 2:00 PM EST - 08/29/2023 3:18 PM EST Surgery OR [facility], OPERATING ROOM [facility], [facility] [address] [place] [address] Nabeel Alvarado MD [address] [place] [address] CYSTOURETHROSCOPY 08/31/2023 10:00 AM EST Imaging Radiology [address], [place] [address] [facility] [place] [address] 09/05/2023 10:15 AM EST Office Visit Hematology/Oncology Gianluca Munoz [place] [address] [place] [address] Romel Perez MD [address] [place] [address] 09/19/2023 1:00 PM EST Office Visit Urology, [place] [address] [place] [address] Nabeel Alvarado MD [address] [place] [address] 11/23/2023 10:15 AM EST Office Visit Family Medicine, [facility] [address] [facility] [address] [place] [address] Elissa Carrero MD [address] [facility] [address] [place] [address] 05/13/2024 2:00 PM EDT Office Visit Nephrology, [facility] [address] [facility] [place] [address] Geraldo Sheehan MD [address] [place] [id number] Pending Results Name Type Priority Associated Diagnoses Date /Time CULTURE, URINE, QUANTITATIVE Lab Routine Malignant neoplasm of overlapping sites of bladder (HCC) Pre-op testing Dysuria 08/15/2023 11:33 AM EST Scheduled Orders Name Type Priority Associated Diagnoses Orde r Schedule EKG EKG Routine Malignant neoplasm of overlapping sites of bladder (HCC) Pre-op testing Ordered: 08/15/2023 Scheduled Procedures Name Priority Associated Diagnoses Date/Ti me CYSTOURETHROSCOPY Malignant neoplasm of urinary bladder, unspecified site (HCC) 08/29/2023 2:00 PM EST Health Maintenance Due Date Last Done Comments Depression Screening 1957 Albumin/Creatinine Ratio 02/07/1964 CKD PHOS USE SMARTSET 93462 02/07/1964 Zoster Vaccines (2 of 3) 10/29/2013 09/03/2013 COVID-19 Vaccine ( season) 2023 01/09/2022, 06/28/2021, 11/10/2020, Additional history exists Influenza Vaccine (FLU shot) (#1) 2023 06/27/2022, 07/12/2021, 07/13/2020, Additional history exists GFR 02/13/2024 08/15/2023, 06/19, 04/09/2023, Additional history exists CKD HGB USE SMARTSET 49982 08/15/202408/15, 08/15/2023, 07/17/2023, Additional history exists DTaP,Tdap,and [...] Not on filedocumented as of this encounter Procedures Procedure Name Priority Date/Time Associated Diagnosis Comments EXTRA URINE MARBLE TOP Routine 08/15/2023 11:32 AM EST EXTRA TUBES Routine 08/15/2023 11:32 AM EST DIFFERENTIAL, AUTOMATED Routine 08/15/2023 11:01 AM EST Malignant neoplasm of overlapping sites of bladder (HCC) Pre-op testing BASIC METABOLIC PANEL Routine 08/15/2023 11:01 AM EST Malignant neoplasm of overlapping sites of bladder (HCC) Pre-op testing CBC Routine 08/15/2023 11:01 AM EST Malignant neoplasm of overlapping sites of bladder (HCC) Pre-op testing CBC Routine 08/15/2023 11:01 AM EST Malignant neoplasm of overlapping sites of bladder (HCC) Pre-op testing URINALYSIS, POINT OF CARE CAIO 08/15/2023 9:44 AM EST documented in this encounter Results * EXTRA URINE MARBLE TOP (08/15/2023 11:32 AM EST) Urine Urine specimen / Unknown 08/15/2023 11:32 AM EST 08/15/2023 12:28 PM EST Rojelio Rose PA-C LAB URINE ORDERABLES [facility] [address] [place] [address] * DIFFERENTIAL, AUTOMATED (08/15/2023 11:01 AM EST) WBC 5.95 4.00 - 10.80 K/uL 08/15/2023 11:42 AM EST [facility] Neutrophils % 60.1 40.0 - 75.0 % 08/15/2023 11:42 AM EST [facility] Lymphocytes % 25.4 18.0 - 42.0 % 08/15/2023 11:42 AM EST [facility] Monocytes % 9.4 1.0 - 11.0 % 08/15/2023 11:42 AM EST [facility] Eosinophils % 4.0 0.0 - 6.0 % 08/15/2023 11:42 AM EST [facility] Basophils % 0.8 0.0 - 2.0 % 08/15/2023 11:42 AM EST [facility] Immature Granulocytes % 0.3 0.0 - 2.0 % 08/15/2023 11:42 AM EST [facility] Absolute Neutrophils 3.57 1.80 - 7.70 K/uL 08/15/2023 11:42 AM EST [facility] Absolute Lymphocytes 1.51 1.00 - 4.80 K/ul 08/15/2023 11:42 AM EST [facility] Absolute Monocytes 0.56 0.00 - 1.10 K/uL 08/15/2023 11:42 AM EST [facility] Absolute Eosinophils 0.24 0.00 - 0.70 K/uL 08/15/2023 11:42 AM EST [facility] Absolute Basophils 0.05 0.00 - 0.20 K/uL 08/15/2023 11:42 AM EST [facility] Absolute Immature Granulocytes 0.02 0.00 - 0.20 K/uL 08/15/2023 11:42 AM EST [facility] Blood Venous blood specimen / Unknown Venipuncture / Unknown 08/15/2023 11:01 AM EST 08/15/2023 11:25 AM EST Rojelio Rose PA-C LAB BLOOD ORDERABLES [facility] [address] [place] [address] * (ABNORMAL) CBC (08/15/2023 11:01 AM EST) WBC 5.95 4.00 - 10.80 K/uL 08/15/2023 11:42 AM EST [facility] RBC 4.29 4.50 - 5.25 M/uL 08/15/2023 11:42 AM EST [facility] HGB 13.6(L) 14.0 - 16.8 g/dL 08/15/2023 11:42 AM EST [facility] HCT 42.2 40.0 - 48.4 % 08/15/2023 11:42 AM EST [facility] MCV 98.4 82.0 - 99.5 fL 08/15/2023 11:42 AM EST [facility] MCH 31.7 27.0 - 34.0 pg 08/15/2023 11:42 AM EST [facility] MCHC 32.2 32.0 - 36.0 g/dL 08/15/2023 11:42 AM EST [facility] RDW 12.8 11.5 - 15.5 % 08/15/2023 11:42 AM EST [facility] PLT 211 140 - 400 K/uL 08/15/2023 11:42 AM EST [facility] MPV 10.6 6.6 - 11.1 fL 08/15/2023 11:42 AM EST [facility] nRBCs 0 <=0 /100 WBCs 08/15/2023 11:42 AM EST [facility] Blood Venous blood specimen / Unknown Venipuncture / Unknown 08/15/2023 11:01 AM EST 08/15/2023 11:25 AM EST Rojelio Rose PA-C LAB BLOOD ORDERABLES [facility] [address] [place] [address] * (ABNORMAL) BASIC METABOLIC PANEL (08/15/2023 11:01 AM EST) BUN 33(H) 6 - 20 mg/dL 08/15/2023 11:59 AM EST [facility] Creatinine 1.9(H) 0.6 - 1.2 mg/dL 08/15/2023 11:59 AM EST LABORATORY GM Estimated Glomerular Filtration Rate 37(L) >=60 mL/min 08/15/2023 11:59 AM EST [facility] Comment:eGFR is calculated b ased on the CKD-EPI 2020 equation Sodium 141 135 - 146 mmol/L 08/15/2023 11:59 AM EST [facility] Potassium 4.4 3.5 - 5.1 mmol/L 08/15/2023 11:59 AM EST [facility] Chloride 106 98 - 107 mmol/L 08/15/2023 11:59 AM EST [facility] CO2 24 22 - 32 mmol/L 08/15/2023 11:59 AM EST [facility] Anion Gap 11 7 - 15 mmol/L 08/15/2023 11:59 AM EST [facility] Glucose 103 70 - 120 mg/dL 08/15/2023 11:59 AM EST [facility] Calcium 9.3 8.4 - 10.2 mg/dL 08/15/2023 11:59 AM EST [facility] Blood Venous blood specimen / Unknown Venipuncture / Unknown 08/15/2023 11:01 AM EST 08/15/2023 11:24 AM EST Rojelio Rose PA-C LAB BLOOD ORDERABLES Performing Organization Address City/State/[facility] Co de Phone Number LABORATORY [facility] [address] [place] [address] * URINALYSIS, POINT OF CARE (08/15/2023 9:44 AM EST) Color, Urine Yellow Light Yellow, Yellow 08/15/2023 9:46 AM EST [employer] Clarity, Urine Clear Clear 08/15/2023 9:46 AM EST [employer] Glucose, Urine Negative Negative mg/dL 08/15/2023 9:46 AM EST [employer] Bilirubin, Urine Negative Negative 08/15/2023 9:46 AM EST [employer] Ketone, Urine Negative Negative mg/dL 08/15/2023 9:46 AM EST [facility] Specific [place], Urine 1.015 1.003 - 1.030 08/15/2023 9:46 AM EST [facility] Blood, Urine Negative Negative 08/15/2023 9:46 AM EST [facility] pH, Urine 5.5 5.0, 5.5, 6.0, 6.5, 7.0, 7.5 units 08/15/2023 9:46 AM EST [facility] Protein, Urine Negative Negative mg/dL 08/15/2023 9:46 AM EST [facility] [employer] Urobilinogen, Urine 0.2 0.2, 1.0 mg/dL 08/15/2023 9:46 AM EST [facility] [employer] Nitrite, Urine Negative Negative 08/15/2023 9:46 AM EST [facility] [employer] Esterase, Urine Negative Negative 08/15/2023 9:46 AM EST [facility] [employer] Urine 08/15/2023 9:44 AM EST 08/15/2023 9:46 AM EST Rojelio Rose PA-C LAB POINT OF CARE TE ST DOCKED DEVICE UNSOLICITED RESULTS [facility] [address] [place] [address] documented in this encounter Visit Diagnoses Diagnosis Malignant neoplasm of overlapping sites of bladder (HCC)- Primary Malignant neoplasm of other specified sites of bladder Pre-op testing Preoperative examination, unspecified Dysuria Malignant neoplasm of urinary bladder, unspecified site (HCC) documented in this encounter Advance Directives Latest Code Status on File Code Status Date Activated Date Inactivated Comments Full Code 05/23/2022 6:38 PM 05/25/2022 7:08 PM This or barak reflects the patients wishes and were consensually agreed upon. Question Answer Comments Discussion of Advance Directives occurred with: Not Discussed due to patient's condition Code Status History Code Status Date Activated Date Inactivated Comments Full Code 05/23/2022 12:31 PM 05/23/2022 6:38 [...] the patient have Health Care Power of Graduate Teacher Education? No Care Teams Pressure Supervisor Relationship Specialty Start Date End Date Elissa Carrero MD [address] [address] PCP - General Family Medicine 12/29/22 documented as of this encounter
--- OUTSIDE RECORDS SUMMARY | 2023-11-20 06:13 | External Medical Summary | Summary of Care ---
Author Name Unknown Organization [facility] Address [address] [place] [address] Phone [phone] Care Team Providers Care Wedding Florist Name Role Phone Elissa Carrero MD Primary Care Provider Reason for Visit * Reason Comments HISTORY and PHYSICAL Encounter Details Date Type Department Care Team (Late st Contact Info) Description 08/15/2023 9:30 AM EST Office Visit Urology, [place] [address] [place], [place] [phone] Rojelio Rose PA-C [address] [place], [place] [phone] Malignant neoplasm of overlapping sites of bladder [...] Time: 9:57 AM PCP: Elissa Carrero MD [address] [place] [address] C/c Pre-operative History and Physical HPI: This [...] f/c, n/v/c/d. The patient denies h/o TIA/CVA, DE, sleep apnea, DVT/PE, or DM. PAST MEDICAL [...] performed by Dean Altamirano MD at OR [facility] BLADDER INSTILLATION, ANTICARCINOGENIC N/A 07/11/2018 BLADDER INSTILLATION OF ANTICARCINOGENIC AGENT performed by Dean Altamirano MD at OR [facility] CYSTO/URETERO W/LITHOTRIPSY Left 09/06/2018 CYSTOURETHROSCOPY URETEROSCOPY WITH LITHOTRIPSY AND STENT INSERTION performed by Tawana Munoz MD atOR [facility] CYSTOSCOPY N/A 01/17/2023 CYSTOURETHROSCOPY performed by Nabeel Alvarado MD at OR [facility] CYSTOSCOPY/INSERTION OF STENT Left 11/13/2017 CYSTOURETHROSCOPY WITH INSERTION URETERAL STENT performed by Dean Altamirano MD at OR [facility] CYSTOSCOPY/INSERTION OF STENT Left 04/10/2018 CYSTOURETHROSCOPY WITH INSERTION URETERAL STENT performed by Dean Altamirano MD at OR [facility] CYSTOSCOPY/INSERTION OF STENT Left 07/11/2018 CYSTOURETHROSCOPY WITH INSERTION URETERAL STENT performed by Dean Altamirano MD at OR [facility] CYSTOSCOPY/INSERTION OF STENT Left 05/23/2022 CYSTOURETHROSCOPY WITH INSERTION URETERAL STENT performed by Nabeel Alvarado MD at OR [facility] CYSTOSCOPY/TREAT LGE BLADDER TUMOR N/A 11/13/2017 CYSTOURETHROSCOPY WITH FULGURATION LARGE BLADDER TUMOR performed by Dean Altamirano MD at OR [facility] CYSTOSCOPY/TREAT LGE BLADDER TUMOR N/A 04/10/2018 CYSTOURETHROSCOPY WITH FULGURATION LARGE BLADDER TUMOR performed by Dean Altamirano MD at OR [facility] CYSTOSCOPY/TREAT LGE BLADDER TUMOR N/A 07/11/2018 CYSTOURETHROSCOPY WITH FULGURATION LARGE BLADDER TUMOR performed by Dean Altamirano MD at OR [facility] CYSTOSCOPY/TREAT LGE BLADDER TUMOR Left 04/04/2022 CYSTOURETHROSCOPY WITH FULGURATION LARGE BLADDER TUMOR performed by Nabeel Alvarado MD at OR [facility] CYSTOURETERO W/BIOPSY Left 11/13/2017 CYSTOURETHROSCOPY URETEROSCOPY WITH BIOPSY AND OR FULGURATION LESION performed by Dean Altamirano MD at OR [facility] [facility] CYSTOURETERO W/BIOPSY Left 09/06/2018 CYSTOURETHROSCOPY URETEROSCOPY WITH BIOPSY AND OR FULGURATION LESION performed by Tawana Munoz MD at OR [facility] CYSTOURETERO W/BIOPSY Left 04/04/2022 CYSTOURETHROSCOPY URETEROSCOPY WITH BIOPSY AND OR FULGURATION LESION performed by Nabeel Alvarado MD at OR [facility] FLUORO PYELOGRAM RETROGRADE Left 11/13/2017 UROGRAHY, RETROGRADE, WITH OR WITHOUT KUB performed by Dean Altamirano MD at OR [facility] FLUORO PYELOGRAM RETROGRADE Left 04/10/2018 UROGRAHY, RETROGRADE, WITH OR WITHOUT KUB performed by Dean Altamirano MD at OR [facility] FLUORO PYELOGRAM RETROGRADE Left 07/11/2018 UROGRAHY, RETROGRADE, WITH OR WITHOUT KUB performed by Dean Altamirano MD at OR [facility] FLUORO PYELOGRAM RETROGRADE Left 09/06/2018 UROGRAHY, RETROGRADE, WITH OR WITHOUT KUB performed by Tawana Munoz MD at OR [facility] INFORMATION leg stents per pt INFORMATION Left left forearm repair was done in [place] LAPARO REMOVE K/URETER Left 05/23/2022 ROBOTIC LAPAROSCOPIC NEPHRECTOMY WITH TOTAL URETERECTOMY performed by Nabeel Alvarado MD at OR [facility] MISCELLANEOUS ORDER ([facility] ONLY) 2012 lumbar surgery . Multipel back surgeries in past REMOVAL OF KIDNEY STONE, OVER 2CM N/A 11/13/2017 PERCUTANEOUS NEPHROSTOLITHOTOMY OVER 2CM performed by Dean Altamirano MD at OR [facility] REMOVAL OF PROSTATE (TURP) N/A 11/13/2017 TRANSURETHRAL RESECTION PROSTATE ELECTROSURGICAL performed by Dean Altamirano MD at OR [facility] FAMILY HISTORY: Family History [...] procedure. Rojelio Rose PA-C Department of Urology [facility] 08/15/2023 9:57 AM documented in this encounter Miscellaneous Notes * Addendum Note - Kendra Luna OSA - 08/15/2023 12:28 PM ESTAddended by: KENDRA LUNA on: 08/15/2023 12:28 PM Modules accepted: Orders documented in this encounter Plan of Treatment Upcoming Encounters Date Type Department Care Team (Latest Contact Info) Description 08/27/2023 10:15 AM EST Office Visit Hematology/Oncology Gianluca Munoz [place] [address] [place] [address] Romel Perez MD [address] [place] [address] 08/29/2023 2:00 PM EST Hospital Encounter OR [facility], OPERATING ROOM [facility], [facility] [address] [place] [address] Nabeel Alvarado MD [address] [place] [address] 08/29/2023 2:00 PM EST Anesthesia Event OR [facility], OPERATING ROOM [facility], [facility] [address] [place] [address] Cyril Pena CRNP [address] [place] [address] 08/29/2023 2:00 PM EST - 08/29/2023 3:18 PM EST Surgery OR [facility], OPERATING ROOM [facility], [facility] [address] [place] [address] Nabeel Alvarado MD [address] [place] [address] CYSTOURETHROSCOPY 08/31/2023 10:00 AM EST Imaging Radiology [address], [place] [address] [facility] [address] 09/05/2023 10:15 AM EST Office Visit Hematology/Oncology Gianluca Munoz [place] [address] [place] [address] Romel Perez MD [address] [place] [address] 09/19/2023 1:00 PM EST Office Visit Urology, [place] [address] [place] [address] Nabeel Alvarado MD [address] [place] [address] 11/23/2023 10:15 AM EST Office Visit Family Medicine, [facility] 7095 [facility] [address] [place] [address] Elissa Carrero MD 7095 [facility] [address] [place] [address] 05/13/2024 2:00 PM EDT Office Visit Nephrology, [facility] 200 [facility] [place] [address] Geraldo Sheehan MD [address] [place] [address] Pending Results Name Type Priority Associated Diagnoses Date /Time CULTURE, URINE, QUANTITATIVE Lab Routine Malignant neoplasm of overlapping sites of bladder (HCC) Pre-op testing Dysuria 08/15/2023 11:33 AM EST EXTRA TUBES Lab Routine 08/15/2023 11 :32 AM EST EXTRA URINE MARBLE TOP Lab Routine 11:32 AM EST Scheduled Orders Name Type Priority [...] Albumin/Creatinine Ratio 02/07/1963 CKD PHOS USE SMARTSET 92744 02/07/1963 Zoster Vaccines (2 of 3) 10/29/2013 09/03/2013 COVID-19 Vaccine ( season) 2023 01/09/2022, 06/28/2021, 11/10/2020, Additional history exists Influenza Vaccine (FLU shot) (#1) 2023 06/27/2022, 07/12/2021, 07/13/2020, Additional history exists GFR 02/13/2024 08/15/2023, 06/19, 04/09/2023, Additional history exists CKD HGB USE SMARTSET 37065 08/15/202408/15, 08/15/2023, 07/17/2023, Additional history exists DTaP,Tdap,and [...] Priority Date/Time Associated Diagnosis Comments DIFFERENTIAL, AUTOMATED Routine 08/15/2023 11:01 AM EST [...] EST documented in this encounter Results * DIFFERENTIAL, AUTOMATED (08/15/2023 11:01 AM EST) [...] LAB BLOOD ORDERABLES [facility] [address] [place] [address] * (ABNORMAL) CBC (08/15/2023 11:01 AM EST) [...] PA-C LAB BLOOD ORDERABLES [facility] [address] [place] [address] * (ABNORMAL) BASIC METABOLIC PANEL (08/15/2023 11:01 AM EST) BUN 33(H) 6 - 20 mg/dL 08/15/2023 11:59 AM EST [facility] Creatinine 1.9(H) 0.6 - 1.2 mg/dL 08/15/2023 11:59 AM EST [facility] Estimated Glomerular Filtration Rate 37(L) >=60 mL/min [...] PA-C LAB BLOOD ORDERABLES Performing Organization Address City/State/[facility] Co de Phone Number LABORATORY [facility] [address] [place], [place] [phone] * URINALYSIS, POINT OF CARE (08/15/2023 9:44 AM EST) Color, Urine Yellow Light Yellow, Yellow 08/15/2023 9:46 AM EST [employer] Clarity, Urine Clear Clear 08/15/2023 9:46 AM EST [employer] Glucose, Urine Negative Negative mg/dL 08/15/2023 9:46 AM EST [employer] Bilirubin, Urine Negative Negative 08/15/2023 9:46 AM EST [employer] Ketone, Urine Negative Negative mg/dL 08/15/2023 9:46 AM EST [employer] Specific [place], Urine 1.015 1.003 - 1.030 08/15/2023 9:46 AM EST [employer] Blood, Urine Negative Negative 08/15/2023 9:46 AM EST [employer] pH, Urine 5.5 5.0, 5.5, 6.0, 6.5, 7.0, 7.5 units 08/15/2023 9:46 AM EST [employer] Protein, Urine Negative Negative mg/dL 08/15/2023 9:46 AM EST [facility] [employer] Urobilinogen, Urine 0.2 0.2, 1.0 mg/dL 08/15/2023 9:46 AM EST [facility] Nitrite, Urine Negative Negative 08/15/2023 9:46 AM EST [facility] Esterase, Urine Negative Negative 08/15/2023 9:46 AM EST [facility] Urine 08/15/2023 9:44 AM EST 08/15/2023 9:46 AM EST Rojelio Rose PA-C LAB POINT OF CARE TE ST DOCKED DEVICE UNSOLICITED RESULTS [facility] [address] [place] [address] documented in this encounter Visit Diagnoses Diagnosis [...] the patient have Health Care Power of Animal Treatment Investigator? No Care Teams Wedding Florist Relationship Specialty Start Date End Date Elissa Carrero MD [address] [place] [id number] PCP - General Family Medicine 12/29/22 documented as of this encounter
--- OUTSIDE RECORDS SUMMARY | 2023-11-20 06:13 | External Medical Summary | Summary of Care ---
Author Name Unknown Organization [facility] Address [address] [place] [address] Phone [phone] Care Team Providers Care Roller Machine Operator Name Role Phone Elissa Carrero MD Primary Care Provider Reason for Visit * Reason Onset Date Comments Advice 08/16/2023 Encounter Details Date Type Department Care Team (Late st Contact Info) Description 08/16/2023 Telephone Hematology/Oncology, [facility] 400 [facility] [place] [address] Romel Perez MD [address] [place] [address] Advice Allergies Active Allergy Reactions Criticality Noted Date Comments Lisinopril 07/04/2019 Other reaction(s): Angioedema Piroxicam 10/25/2022 Other reaction(s): muscle spasms documented as of this encounter (statuses as of 08/20/2023) Medications Medication Sig Dispensed Refills Start Date [...] as of this encounter (statuses as of 08/20/2023) Active Problems Problem Noted Date Diagnosed Date [...] as of this encounter (statuses as of 08/20/2023) Resolved Problems Problem Noted Date Diagnosed Date Resolved Date Stage 3a chronic kidney disease 10/27/2022 01/24/2023 Overview: Per CKD protocol documented as of this encounter (statuses as of 08/20/2023) Immunizations Name Administration Dates Next Due COVID-19 [...] Telephone Encounter - Madai Hull RN - 08/20/2023 9:[address] Perez's routing comment: "Patient had robotic laparoscopic nephrectomy with total ureterectomy, bladder cuff 05/23/22. Not sure why NGS can not be done. Want to see the patient after the CT scan. Please can we request for NGS, they should have enough material/tissue." Staff message sent to pathology. * Telephone Encounter - Madai Hull RN - 08/20/2023 8:[address] Perez: please advise on previous note. NGS unable to be added, patient would like to start treatment. Would you like to see him 08/27? Or do you want to cancel this and see him 09/[address] scan? * Telephone Encounter - Madai Hull RN - 08/16/2023 1:59 PM EST Per office note, plan was to add NGS to pathology and repeat CT scan prior to deciding on treatment. Ct 08/31. Appt with Dr Perez 08/27 was previously scheduled. NGS unable to be added. Called patient. He states that he does not see the point in waiting to start treatment. Advised himthat I will leave both appts scheduled, will review with Dr Perez when he returns on Sunday. Patient verbalized understanding. He notes he has cataract surgery 08/22 and follow up with eye doctor 08/23. * Telephone Encounter - Allen Parker OSA - 08/16/2023 11:22 AM EST Wants advice on 2 questions. Has an appointment w/Dr. Perez on 08/27/23 and 09/05/23. Does he need both and if not, which shouldbe canceled? Dr. Perez had discussed immunotherapy. If the cancer that is coming back is the same as the highly aggressive cancer, why are they waiting so long? documented in this encounter Plan of Treatment Upcoming Encounters Date Type Department Care Team (Latest Contact Info) Description 08/27/2023 10:15 AM EST Office Visit Hematology/Oncology [facility] [place] [address] [facility] [place] [address] Romel Perez MD [address] [facility] [place] [address] 08/29/2023 2:00 PM EST Hospital Encounter [place] [facility], OPER[facility]OM [facility] [address] [place] [address] Nabeel Alvarado MD [address] [place] [address] 08/29/2023 2:00 PM EST Anesthesia Event [place] [facility] [facility]ATING RO[facility] [address] [place] [address] Cyril Pena CRNP [address] [place] [address] 08/29/2023 2:00 PM EST - 08/29/2023 3:18 PM EST Surgery OR C, OPER[facility] ROOM [facility] [address] [place] [address] Nabeel Alvarado MD [address] [place] [address] CYSTOURETHROSCOPY 08/31/2023 10:00 AM EST Imaging Radiology [address], [place] 132 [facility] [place] [address] 09/05/2023 10:15 AM EST Office Visit Hematology/Oncology [facility] [place] 200 [facility] [place] [address] Romel Perez MD [address] [facility] [place] [address] 09/19/2023 1:00 PM EST Office Visit Urology, [place] [address] [facility] [place] [address] Nabeel Alvarado MD [address] [place] [address] 11/23/2023 10:15 AM EST Office Visit Family Medicine, [facility] 7095 [facility] [address] [place] [phone] Elissa Carrero MD 7095 [facility] [address] [place] [address] 05/13/2024 2:00 PM EDT Office Visit Nephrology, [facility] 200 [facility] [place] [address] Geraldo Sheehan MD [address] [place] [address] Scheduled Procedures Name Priority Associated Diagnoses Date/Ti me CYSTOURETHROSCOPY Malignant neoplasm of urinary bladder, unspecified site (HCC) 08/29/2023 2:00 PM EST Health Maintenance Due Date Last Done Comments Depression Screening 1957 Albumin/Creatinine Ratio 02/07/1964 CKD PHOS USE SMARTSET 83602 02/07/1964 Zoster Vaccines (2 of 3) 10/29/2013 09/03/2013 COVID-19 Vaccine ( season) 2023 01/09/2022, 06/28/2021, 11/10/2020, Additional history exists Influenza Vaccine (FLU shot) (#1) 2023 06/27/2022, 07/12/2021, 07/13/2020, Additional history exists GFR 02/13/2024 08/15/2023, 06/19, 04/09/2023, Additional history exists CKD HGB USE SMARTSET 41334 08/15/202408/15, 08/15/2023, 07/17/2023, Additional history exists DTaP,Tdap,and [...] the patient have Health Care Power of Container Washer Machine? No Care Teams Roller Machine Operator Relationship Specialty Start Date End Date Elissa Carrero MD [address] [address] PCP - General Family Medicine 12/29/22 documented as of this encounter
--- OUTSIDE RECORDS SUMMARY | 2023-11-20 06:13 | External Medical Summary | Summary of Care ---
Author Name Unknown Organization [facility] Address [address] [place] [address] Phone [phone] Care Team Providers Care Radiation Officer Name Role Phone Elissa Carrero MD Primary Care Provider Reason for Visit * Reason Onset Date Comments Advice 08/16/2023 Encounter Details Date Type Department Care Team (Late st Contact Info) Description 08/16/2023 Telephone Hematology/Oncology, [facility] 400 [facility] [place] [address] Romel Perez MD [address] [place] [address] Advice Allergies Active Allergy Reactions Criticality Noted Date Comments Lisinopril 07/04/2019 Other reaction(s): Angioedema Piroxicam 10/25/2022 Other reaction(s): muscle spasms documented as of this encounter (statuses as of 08/22/2023) Medications Medication Sig Dispensed Refills Start Date [...] as of this encounter (statuses as of 08/22/2023) Active Problems Problem Noted Date Diagnosed Date [...] as of this encounter (statuses as of 08/22/2023) Resolved Problems Problem Noted Date Diagnosed Date Resolved Date Stage 3a chronic kidney disease 10/27/2022 01/24/2023 Overview: Per CKD protocol documented as of this encounter (statuses as of 08/22/2023) Immunizations Name Administration Dates Next Due COVID-19 [...] Telephone Encounter - Keyla Hudson OSA - 08/22/2023 3:58 PM EST Cancelled as requested. * Telephone Encounter - Madai Hull RN - 08/22/2023 3:44 PM EST Pathology can be added, now in process. Called patient. He is agreeable to cancelling 08/27/23 appt and keeping 09/05 appt as scheduled to review pathology/ CT results. Scheduling: please cancel 08/27/23 appt- patient aware. Thanks! * Telephone Encounter - Madai Hull [...] Care Team (Latest Contact Info) Description 08/29/2023 2:00 PM EST Hospital Encounter OR [facility], OPERATING ROOM [facility] [address] [place] [address] Nabeel Alvarado MD [address] [place] [address] 08/29/2023 2:00 PM EST Anesthesia Event OR [facility], OPERATING ROOM [facility], [facility] [address] [place] [facility] [place] [address] Cyril Pena CRNP [address] [place] [address] 08/29/2023 2:00 PM EST - 08/29/2023 3:18 PM EST Surgery OR [facility], OPERATING ROOM [facility], [facility] [address] [place] [facility] [place] [address] Nabeel Alvarado MD [address] [place] [address] CYSTOURETHROSCOPY 08/31/2023 10:00 AM EST Imaging Radiology [address], [place] 132 [place] [address] 09/05/2023 10:15 AM EST Office Visit Hematology/Oncology [facility] [address] [place] [address] Romel Perez MD [address] [place] [address] 09/19/2023 1:00 PM EST Office Visit Urology, [place] [address] [place] [address] Nabeel Alvarado MD [address] [place] [address] 11/23/2023 10:15 AM EST Office Visit Family Medicine, [facility] 7095 [facility] [address] [place] [phone] Elissa Carrero MD 7095 [facility] [address] [place] [address] 05/13/2024 2:00 PM EDT Office Visit Nephrology, [facility] [address] [place], [place] [address] Geraldo Sheehan MD 200 [facility] [place] [address] Scheduled Procedures Name Priority Associated Diagnoses Date/Ti me CYSTOURETHROSCOPY Malignant neoplasm of urinary bladder, unspecified site (HCC) 08/29/2023 2:00 PM EST Health Maintenance Due Date Last Done Comments Depression Screening 1957 Albumin/Creatinine Ratio 02/07/1964 CKD PHOS USE SMARTSET 83477 02/07/1963 Zoster Vaccines (2 of 3) 10/29/2013 09/03/2013 COVID-19 Vaccine ( season) 2023 01/09/2022, 06/28/2021, 11/10/2020, Additional history exists Influenza Vaccine (FLU shot) (#1) 2023 06/27/2022, 07/12/2021, 07/13/2020, Additional history exists GFR 02/13/2024 08/15/2023, 06/19, 04/09/2023, Additional history exists CKD HGB USE SMARTSET 98379 08/15/202408/15, 08/15/2023, 07/17/2023, Additional history exists DTaP,Tdap,and [...] the patient have Health Care Power of Slicing Machine Operator/Tender? No Care Teams Radiation Officer Relationship Specialty Start Date End Date Elissa Carrero MD [address] [address] PCP - General Family Medicine 12/29/22 documented as of this encounter
--- OUTSIDE RECORDS SUMMARY | 2023-11-20 06:13 | External Medical Summary | Summary of Care ---
Author Name Unknown Organization [facility] Address [address] [place] [address] Phone [phone] Care Team Providers Care Wedding Coordinator Name Role Phone Elissa Carrero MD Primary Care Provider Reason for Visit * Reason Onset Date Comments Advice 08/16/2023 Encounter Details Date Type Department Care Team (Late st Contact Info) Description 08/16/2023 Telephone Hematology/Oncology, [facility] 400 [facility] [place] [address] Romel Perez MD 200 [place] [address] Advice Allergies Active Allergy Reactions Criticality Noted [...] AM EST Office Visit Hematology/Oncology Gianluca Munoz [place] 200 [facility] [place] [address] Romel Perez MD [address] [place] [address] 08/29/2023 2:00 PM EST Hospital Encounter [facility] [address] [place] [address] Nabeel Alvarado MD [address] [place] [address] 08/29/2023 2:00 PM EST Anesthesia Event OR [facility], OPERATING ROOM [facility], [facility] [address] [facility] [place] [address] Cyril Pena CRNP [address] [facility] [address] 08/29/2023 2:00 PM EST - 08/29/2023 3:18 PM EST Surgery OR [facility], OPERATING ROOM [facility], [facility] [address] [facility] [address] Nabeel Alvarado MD [address] [place] [address] CYSTOURETHROSCOPY 08/31/2023 10:00 AM EST Imaging Radiology [address] [place] [address] 09/05/2023 10:15 AM EST Office Visit Hematology/Oncology [facility] [address] [place] [address] Romel Perez MD [address] [place] [address] 09/19/2023 1:00 PM EST Office Visit Urology, [place] [address] [place] [address] Nabeel Alvarado MD [address] [place] [address] 11/23/2023 10:15 AM EST Office Visit Family Medicine, [facility] 7095 [facility] 1100 [place] [phone] Elissa Carrero MD 7095 [facility] [address] [place] [address] 05/13/2024 2:00 PM EDT Office Visit Nephrology, [facility] [address] [place] [address] Geraldo Sheehan MD 200 Gianluca Nguyen [place], [place] [address] Scheduled Procedures Name Priority Associated Diagnoses Date/Ti me CYSTOURETHROSCOPY Malignant neoplasm of urinary bladder, unspecified site (HCC) 08/29/2023 2:00 PM EST Health Maintenance Due Date Last Done Comments Depression Screening 1957 Albumin/Creatinine Ratio 02/07/1964 CKD PHOS USE SMARTSET 68846 02/07/1963 Zoster Vaccines (2 of 3) 10/29/2013 09/03/2013 COVID-19 Vaccine ( season) 2023 01/09/2022, 06/28/2021, 11/10/2020, Additional history exists Influenza Vaccine (FLU shot) (#1) 2023 06/27/2022, 07/12/2021, 07/13/2020, Additional history exists GFR 02/13/2024 08/15/2023, 06/19, 04/09/2023, Additional history exists CKD HGB USE SMARTSET 96805 08/15/202408/15, 08/15/2023, 07/17/2023, Additional history exists DTaP,Tdap,and [...] the patient have Health Care Power of Electric Melt Operator? No Care Teams Wedding Coordinator Relationship Specialty Start Date End Date Elissa Carrero MD [address] [place] [address] [place] [address] PCP - General Family Medicine 12/29/22 documented as of this encounter
--- OUTSIDE RECORDS SUMMARY | 2023-11-20 06:14 | External Medical Summary ---
Author Name Unknown Address Unknown Organization K01:[facility] - [facility] [place] [address] Laboratory Report Ordering Provider Test Date Status DORITA RÍOS 08/15/2023 11:01:19 Final Observation Date Value Abnormality Reference (Units ) Status WBC, Total 08/15/2023 11:01:19 5.95 4.00-10.80 (K/uL) Final RBC 08/15/2023 11:01:19 4.29 4.50-5.25 (M/uL) Final Hemoglobin 08/15/2023 11:01:19 13.6 Below low normal 14.0-16.8 (g/dL) Final HCT 08/15/2023 11:01:19 42.2 40.0-48.4 (%) Final MCV 08/15/2023 11:01:19 98.4 82.0-99.5 (fL) Final MCH 08/15/2023 11:01:19 31.7 27.0-34.0 (pg) Final MCHC 08/15/2023 11:01:19 32.2 32.0-36.0 (g/dL) Final RDW 08/15/2023 11:01:19 12.8 11.5-15.5 (%) Final Platelets 08/15/2023 11:01:19 211 140-400 (K/uL) Final MPV 08/15/2023 11:01:19 10.6 6.6-11.1 (fL) Final Nucleated erythrocytes/100 leukocytes [Ratio] in Blood by Automated count 08/15/2023 11:01:19 0 <=0 (/100 WBCs) Final Performing Location [facility] - [address] [place] [address]
--- OUTSIDE RECORDS SUMMARY | 2023-11-20 06:14 | External Medical Summary | Summary of Care ---
Author Name Unknown Organization [facility] Address [address] [place] [address] Phone [phone] Care Team Providers Care [employer] Teacher Name Role Phone Elissa Carrero MD Primary Care Provider Reason for Visit * Reason Onset Date Comments Follow Up 07/31/2023 Encounter Details Date Type Department Care Team (Late st Contact Info) Description 07/31/2023 Telephone [facility] Urology [address] [place] [address] Nabeel Alvarado MD [address] [place] [address] Follow Up Allergies Active Allergy Reactions Criticality Noted Date Comments Lisinopril 07/04/2019 Other reaction(s): Angioedema Piroxicam 10/25/2022 Other reaction(s): muscle spasms documented as of this encounter (statuses as of 07/31/2023) Medications Medication Sig Dispensed Refills Start Date [...] as of this encounter (statuses as of 07/31/2023) Active Problems Problem Noted Date Diagnosed Date [...] as of this encounter (statuses as of 07/31/2023) Resolved Problems Problem Noted Date Diagnosed Date Resolved Date Stage 3a chronic kidney disease 10/27/2022 01/24/2023 Overview: Per CKD protocol documented as of this encounter (statuses as of 07/31/2023) Immunizations Name Administration Dates Next Due COVID-19 [...] encounter Miscellaneous Notes * Telephone Encounter - Nabeel Alvarado MD - 07/31/2023 5:16 PM EST After connecting to the patient via telephone, the patient was identified by name and date of . Patient was then informed that this was a telephone call only visit. The patient agreed to participate. Visit Disposition: Routine follow-up Total call duration was 18 minutes. Called patient at his request to discuss the results of the PETscan and whether there is a role forsurgery. Results of surgery were discussed below: A. Left kidney, ureter, and bladder cuff, [...] morphology and immunohistochemical profile support the above diagnosis. Clinical History History of renal pelvis cancer. Synoptic Data Procedure: Nephroureterectomy Specimen Laterality: Left Tumor Site: Ureter Renal pelvis Tumor Size: [...] only-Tumor invades beyond muscularis into periureteric fat Pathologic Finding in Ipsilateral Nonneoplastic Renal Tissue: Glomerular disease: glomerulosclerosis Results of PET scan were also discussed below: Narrative & Impression EXAM PET CT SKULL BASE TO MID-THIGH - 07/20/2023 12:03 pm HISTORY history of left renal pelvis transitional cell neoplasm, s/p surgery and chemotherapy, f/u abnormalactivity in left renal bed COMPARISON PET CT dated 07/04/2022. CT body dated 01/08/2023. TECHNIQUE PET imaging was performed from the skull base to the mid thighs 64 minutes following the intravenous administration of 12.3 mCi of F-18 fluorodeoxyglucose (FDG). Gastroview was administered. Low-doseCT was performed for anatomic localization and attenuation correction purposes and fused with the PET images on a separate workstation. The patient's glucose level at the time of radiotracer injection was 92 mg/dL. This is a follow up PET/CT for the above indication. FINDINGS PET SCAN: Maximum blood pool SUV: 2.7 Maximum hepatic SUV: 3.8 Head/Neck: No metabolically active cervical lymphadenopathy. Physiologic activity is present within the visualized brain. Chest: Stable 7 mm left upper lobe pulmonary nodule (series 2, image 79), too small for PET characterization. No metabolically active pulmonary nodules. No metabolically active axillary, hilar, or mediastinal lymphadenopathy. Abdomen/Pelvis: Status post left nephrectomy with new nodularity measuring 1.2 x 0.9 cm (series 2, image 146) with mild activity up to 1.9 SUV. Two adjacent newly hypermetabolic distal paraaortic/left common iliac lymph nodes, increased in size from prior exams. They measure 1.2 x 1.5 cm and 1.1 x 1.3 cm with activity up to 4.7 SUV (previously 0.5 cm and 0.6 x 0.8 cm on 07/04/2022). Similar enlargement of the left adrenal gland without focal activity. Physiologic activity is present within the gastrointestinal and genitourinary systems. Musculoskeletal: No abnormal focal activity localizes to the bones. Similar lucent lesion in the right iliac bone, possibly donor graft site. ADDITIONAL CT FINDINGS: Lines/Devices: None. Head/Neck: Atherosclerosis of the carotid bulbs. Chest: Heavy coronary artery calcifications. The large airways are patent. No focal consolidation, pleural effusion, or pneumothorax. Abdomen/Pelvis: Scattered hepatic cysts. Right cortical and sinus renal cysts. Status post left nephrectomy. Similar enlargement of the left adrenal gland. Colonic diverticulosis. Heavy atherosclerosis of the aorta and its branches. Vasectomy clips. Musculoskeletal/Other: Osseous degenerative changes. Lumbar posterior fusion hardware. Diffuse inflammatory activity throughout the left lumbar erector spinae complex. IMPRESSION IMPRESSION 1. New nodularity in the left nephrectomy bed, suspicious for local recurrence. 2. Enlarged and hypermetabolic distal paraaortic/left common iliac nodes, concerning for heather metastases. I have personally reviewed this examination and agree with the resident/fellow physician's interpretation. 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 He received 4 cycles of adjuvant carboplatin and gemcitabine with last dose on 09/28/2022. He had a recent PET scan showing recurrent disease in the left renal bed and left sided retroperitoneal and pelvic lymphadenopathy. Plan: Reviewed the surgical pathology and indicated that the pT3 disease is high risk for local recurrence and lymphovascular invasion in high risk for systemic dissemination of his disease. Recommended systemic management. He has progress following gemcitabine and carboplatin (due to eGFRof 35 mL/min) 3. Pt expressed understanding and agrees with oncology followup which is scheduled for next month. 4. He has an upcoming cystoscopy next month that he wants in the operating room. Last cystoscopy was negative for bladder recurrence. Nabeel Alvarado MD 07/31/2023 8:13 PM documented in this encounter Plan of Treatment Upcoming Encounters Date Type Department Care Team (Late st Contact Info) Description 08/15/2023 9:30 AM EST Office Visit Urology, [place] [address] [place] [address] Rojelio Rose PA-C [address] [place] [address] 08/15/2023 10:30 AM EST Pre-Admission Testing Pre Surgery Center, [place] [address] [place] [facility] [address] [place] [address] [place] [facility] [address] 08/27/2023 10:15 AM EST Office Visit Hematology/Oncology Gianluca Munoz [place] [address] [place] [address] Romel Perez MD [address] [place] [address] 08/29/2023 2:00 PM EST Hospital Encounter OR [facility], OPERATING ROOM [facility], [facility] [address] [place] [address] Nabeel Alvarado MD [address] [place] [facility] [address] 08/29/2023 2:00 PM EST - 08/29/2023 3:18 PM EST Surgery OR [facility], OPERATING ROOM [facility], [facility] [address] [facility] [address] Nabeel Alvarado MD [address] [place] [facility] [address] CYSTOURETHROSCOPY 09/19/2023 1:00 PM EST Office Visit Urology, [place] [address] [facility] [address] Nabeel Alvarado MD [address] [place] [facility] [address] 11/23/2023 10:15 AM EST Office Visit Family Medicine, [facility] [address] [facility] [address] [place] [phone] Elissa Carrero MD [address] [facility] [address] [place] [address] 05/13/2024 2:00 PM EDT Office Visit Nephrology, [facility] [address] [place] [address] Geraldo Sheehan MD 200 [facility] [place] [address] Scheduled Procedures Name Priority Associated Diagnoses Date/Ti me CYSTOURETHROSCOPY Malignant neoplasm of urinary bladder, unspecified site (HCC) 08/29/2023 2:00 PM EST Health Maintenance Due Date Last Done Comments Depression Screening 1957 Albumin/Creatinine Ratio 02/07/1964 CKD PHOS USE SMARTSET 12696 02[birth year]07/1963 Zoster Vaccines (2 of 3) 10/29/2013 09/03/2013 COVID-19 Vaccine ( season) 2023 01/09/2022, 06/28/2021, 11/10/2020, Additional history exists Influenza Vaccine (FLU shot) (#1) 2023 06/27/2022, 07/12/2021, 07/13/2020, Additional history exists GFR 01/15/2024 07/17/2023, 03/18, 12/26/2022, Additional history exists CKD HGB USE SMARTSET 83947 07/17/202407/17, 07/17/2023, 04/09/2023, Additional history exists DTaP,Tdap,and Td Vaccines (3 [...] the patient have Health Care Power of Icer Air Conditioning? No Care Teams [employer] Teacher Relationship Specialty Start Date End Date Elissa Carrero MD [address] [address] PCP - General Family Medicine 12/29/22 documented as of this encounter
--- OUTSIDE RECORDS SUMMARY | 2023-11-20 06:14 | External Medical Summary ---
Author Name Unknown Address Unknown Organization K01:LABORATORY C - [address] [place] [address] Laboratory Report Ordering Provider Test Date Status DORITA RÍOS 08/15/2023 11:01:19 Final Observation Date Value Abnormality Reference (Units ) Status SYNC LEUKOCYTES IN BLOOD BY AUTOMATED COUNT 08/15/2023 11:01:19 5.95 4.00-10.80 (K/uL) Final Segs 08/15/2023 11:01:19 60.1 40.0-75.0 (%) Final Lymphs % 08/15/2023 11:01:19 25.4 18.0-42.0 (%) Final Monos 08/15/2023 11:01:19 9.4 1.0-11.0 (%) Final Eosinophils 08/15/2023 11:01:19 4.0 0.0-6.0 (%) Final Basos 08/15/2023 11:01:19 0.8 0.0-2.0 (%) Final Immature Granulocyte, Percent 08/15/2023 11:01:19 0.3 0.0-2.0 (%) Final Absolute Segs 08/15/2023 11:01:19 3.57 1.80-7.70 (K/uL) Final Lymphs, absolute 08/15/2023 11:01:19 1.51 1.00-4.80 (K/ul) Final Monos, Abs 08/15/2023 11:01:19 0.56 0.00-1.10 (K/uL) Final Eos, Abs 08/15/2023 11:01:19 0.24 0.00-0.70 (K/uL) Final Basos, Abs 08/15/2023 11:01:19 0.05 0.00-0.20 (K/uL) Final Immature Granulocytes, Number 08/15/2023 11:01:19 0.02 0.00-0.20 (K/uL) Final Performing Location [facility] [place] [address] [facility] [address]
--- OUTSIDE RECORDS SUMMARY | 2023-11-20 06:14 | External Medical Summary | Summary of Care ---
Author Name Unknown Organization [facility] Address [address] [place] [address] Phone [phone] Care Team Providers Care Supervisor Cartography Name Role Phone Elissa Carrero MD Primary Care Provider Reason for Visit * Reason Comments HISTORY and PHYSICAL Encounter Details Date Type Department Care Team (Late st Contact Info) Description 08/15/2023 9:30 AM EST Office Visit Urology, [place] [address] [place], [place] [phone] Rojelio Rose PA-C [address] [place], [place] [phone] Malignant neoplasm of overlapping sites of bladder [...] Time: 9:57 AM PCP: Elissa Carrero MD [address] [place] [address] C/c Pre-operative History and Physical HPI: This [...] performed by Dean Altamirano MD at OR [facility] BLADDER INSTILLATION, ANTICARCINOGENIC N/A 07/11/2018 BLADDER INSTILLATION OF ANTICARCINOGENIC AGENT performed by Dean Altamirano MD at OR [facility] CYSTO/URETERO W/LITHOTRIPSY Left 09/06/2018 CYSTOURETHROSCOPY URETEROSCOPY WITH LITHOTRIPSY AND STENT INSERTION performed by Tawana Munoz [facility] CYSTOSCOPY N/A 01/17/2023 CYSTOURETHROSCOPY performed by Nabeel Alvarado MD at OR [facility] CYSTOSCOPY/INSERTION OF STENT Left 11/13/2017 CYSTOURETHROSCOPY WITH INSERTION URETERAL STENT performed by Dean Altamirano MD at OR [facility] CYSTOSCOPY/INSERTION OF STENT Left 04/10/2018 CYSTOURETHROSCOPY WITH INSERTION URETERAL STENT performed by Dean Altamirano MD at OR [facility] CYSTOSCOPY/INSERTION OF STENT Left 07/11/2018 CYSTOURETHROSCOPY WITH INSERTION URETERAL STENT performed by Dean Altamirano MD at OR [facility] CYSTOSCOPY/INSERTION OF STENT Left 05/23/2022 CYSTOURETHROSCOPY WITH INSERTION URETERAL STENT performed by Nabeel Alvarado MD at OR [facility] CYSTOSCOPY/TREAT LGE BLADDER TUMOR N/A 11/13/2017 CYSTOURETHROSCOPY WITH FULGURATION LARGE BLADDER TUMOR performed by Dean Altamirano MD at OR [facility] CYSTOSCOPY/TREAT LGE BLADDER TUMOR N/A 04/10/2018 CYSTOURETHROSCOPY WITH FULGURATION LARGE BLADDER TUMOR performed by Dean Altamirano MD at OR [facility] CYSTOSCOPY/TREAT LGE BLADDER TUMOR N/A 07/11/2018 CYSTOURETHROSCOPY WITH FULGURATION LARGE BLADDER TUMOR performed by Dean Altamirano MD at OR [facility] CYSTOSCOPY/TREAT LGE BLADDER TUMOR Left 04/04/2022 CYSTOURETHROSCOPY WITH FULGURATION LARGE BLADDER TUMOR performed by Nabeel Alvarado MD at OR [facility] CYSTOURETERO W/BIOPSY Left 11/13/2017 CYSTOURETHROSCOPY URETEROSCOPY WITH BIOPSY AND OR FULGURATION LESION performed by Dean Altamirano MD at OR [facility] CYSTOURETERO W/BIOPSY Left 09/06/2018 CYSTOURETHROSCOPY URETEROSCOPY WITH BIOPSY AND OR FULGURATION LESION performed by Tawana Munoz MD at OR [facility] CYSTOURETERO W/BIOPSY Left 04/04/2022 CYSTOURETHROSCOPY URETEROSCOPY WITH BIOPSY AND OR FULGURATION LESION performed by Nabeel Alvarado MD at OR [facility] FLUORO PYELOGRAM RETROGRADE Left 11/13/2017 UROGRAHY, RETROGRADE, WITH OR WITHOUT KUB performed by Dean Altamirano MD at OR [facility] FLUORO PYELOGRAM RETROGRADE Left 04/10/2018 UROGRAHY, RETROGRADE, WITH OR WITHOUT KUB performed by Dean Altamirano MD at OR [facility] FLUORO PYELOGRAM RETROGRADE Left 07/11/2018 UROGRAHY, RETROGRADE, WITH OR WITHOUT KUB performed by Dean Altamirano MD at OR [facility] FLUORO PYELOGRAM RETROGRADE Left 09/06/2018 UROGRAHY, RETROGRADE, WITH OR WITHOUT KUB performed by Tawana Munoz MD at OR [facility] INFORMATION leg stents per pt INFORMATION Left left forearm repair was done in [place] LAPARO REMOVE K/URETER Left 05/23/2022 ROBOTIC LAPAROSCOPIC NEPHRECTOMY WITH TOTAL URETERECTOMY performed by Nabeel Alvarado MD at OR [facility] MISCELLANEOUS ORDER ([facility] ONLY) 2012 lumbar surgery . Multipel back surgeries in past REMOVAL OF KIDNEY STONE, OVER 2CM N/A 11/13/2017 PERCUTANEOUS NEPHROSTOLITHOTOMY OVER 2CM performed by Dean Altamirano MD at OR [facility] REMOVAL OF PROSTATE (TURP) N/A 11/13/2017 TRANSURETHRAL RESECTION PROSTATE ELECTROSURGICAL performed by Dean Altamirano MD at OR [facility] FAMILY HISTORY: Family History Problem Relation Age [...] procedure. Rojelio Rose PA-C Department of Urology [facility] 08/15/2023 9:57 AM documented in this encounter Plan of Treatment Upcoming Encounters Date Type Department Care Team (Latest Contact Info) Description 08/27/2023 10:15 AM EST Office Visit Hematology/Oncology [facility] [address] [place] [address] Romel Perez MD [address] [place] [address] 08/29/2023 2:00 PM EST Hospital Encounter OR [facility], OPERATING ROOM [facility], [facility] [address] [place] [address] Nabeel Alvarado MD [address] [place] [address] 08/29/2023 2:00 PM EST Anesthesia Event OR [facility], OPERATING ROOM [facility], [facility] [address] [place] [facility] [place] [address] Cyril Pena CRNP [address] [place] [address] 08/29/2023 2:00 PM EST - 08/29/2023 3:18 PM EST Surgery OR [facility], OPERATING ROOM [facility], [facility] [address] [place] [address] Nabeel Alvarado MD [address] [place] [address] CYSTOURETHROSCOPY 08/31/2023 10:00 AM EST Imaging Radiology [address] [place] [address] 09/05/2023 10:15 AM EST Office Visit Hematology/Oncology [facility] [address] [place] [address] Romel Perez MD [address] [place] [address] 09/19/2023 1:00 PM EST Office Visit Urology, [place] [address], [place] [phone] Nabeel Alvarado MD [address] [place] [address] 11/23/2023 10:15 AM EST Office Visit [facility] [address] [facility] [address] [place] [address] Elissa Carrero MD [address] [facility] [address] [place] [address] 05/13/2024 2:00 PM EDT Office Visit Nephrology, Gianluca Munoz 200 [facility] [place] [address] Geraldo Sheehan MD 200 [facility] [place] [address] Scheduled Orders Name Type Priority Associated Diagnoses Orde r Schedule EKG EKG Routine Malignant neoplasm of overlapping sites of bladder (HCC) Pre-op testing Ordered: 08/15/2023 CULTURE, URINE, QUANTITATIVE Lab Routine Malignant neoplasm of overlapping sites of bladder (HCC) Pre-op testing Dysuria Ordered: 08/15/2023 BASIC METABOLIC PANEL Lab Routine Malignant neoplasm of overlapping sites of bladder (HCC) Pre-op testing Ordered: 08/15/2023 CBC WITH WBC DIFFERENTIAL Lab Routine Malignant neoplasm of overlapping sites of bladder (HCC) Pre-op testing Ordered: 08/15/2023 CBC Lab Routine Malignant neoplasm of overlapping sites of bladder (HCC) Pre-op testing Ordered: 08/15/2023 DIFFERENTIAL, AUTOMATED Lab Routine Malignant neoplasm of overlapping sites of bladder (HCC) Pre-op testing Ordered: 08/15/2023 Scheduled Procedures Name Priority Associated Diagnoses Date/Ti me CYSTOURETHROSCOPY Malignant neoplasm of urinary bladder, unspecified site (HCC) 08/29/2023 2:00 PM EST Health Maintenance Due Date Last Done Comments Depression Screening 1957 Albumin/Creatinine Ratio 02/07/1963 CKD PHOS USE SMARTSET 09920 02[birth year]07/1963 Zoster Vaccines (2 of 3) 10/29/2013 09/03/2013 COVID-19 Vaccine ( season) 2023 01/09/2022, 06/28/2021, 11/10/2020, Additional history exists Influenza Vaccine (FLU shot) (#1) 2023 06/27/2022, 07/12/2021, 07/13/2020, Additional history exists GFR 01/15/2024 07/17/2023, 07/12/2022, 12/26/2022, Additional history exists CKD HGB USE SMARTSET 94508 07/17/202407/17, 07/17/2023, 04/09/2023, Additional history exists DTaP,Tdap,and [...] Procedure Name Priority Date/Time Associated Diagnosis Comments URINALYSIS, POINT OF CARE CAIO 08/15/2023 9:44 AM EST documented in this encounter Results * URINALYSIS, POINT OF CARE (08/15/2023 9:44 AM EST) Color, Urine Yellow Light Yellow, Yellow 08/15/2023 9:46 AM EST [facility] Clarity, Urine Clear Clear 08/15/2023 9:46 AM EST [facility] Glucose, Urine Negative Negative mg/dL 08/15/2023 9:46 AM EST [facility] Bilirubin, Urine Negative Negative 08/15/2023 9:46 AM EST [facility] Ketone, Urine Negative Negative mg/dL 08/15/2023 9:46 AM EST [facility] Specific [place], Urine 1.015 1.003 - 1.030 08/15/2023 9:46 AM EST [facility] Blood, Urine Negative Negative 08/15/2023 9:46 AM EST [facility] pH, Urine 5.5 5.0, 5.5, 6.0, 6.5, 7.0, 7.5 units 08/15/2023 9:46 AM EST [facility] Protein, Urine Negative Negative mg/dL 08/15/2023 9:46 AM EST [facility] Urobilinogen, Urine 0.2 0.2, 1.0 mg/dL 08/15/2023 9:46 AM EST [facility] Nitrite, Urine Negative Negative 08/15/2023 9:46 AM EST [facility] Esterase, Urine Negative Negative 08/15/2023 9:46 AM EST [facility] Urine 08/15/2023 9:44 AM EST 08/15/2023 9:46 AM EST Rojelio Rose PA-C LAB POINT OF CARE TE ST DOCKED DEVICE UNSOLICITED RESULTS [facility] [address] [place] [address] documented in this encounter Visit Diagnoses Diagnosis [...] the patient have Health Care Power of Photovoltaic Solar Cell Designer? No Care Teams Supervisor Cartography Relationship Specialty Start Date End Date Elissa Carrero MD [address] [phone] PCP - General Family Medicine 12/29/22 documented as of this encounter
--- OUTSIDE RECORDS SUMMARY | 2023-11-20 06:14 | External Medical Summary ---
Author Name Unknown Address Unknown Organization K01:LABORATORY [facility] - [address] [place] [address] Laboratory Report Ordering Provider Test Date Status DORITA RÍOS 08/15/2023 11:01:19 Final Observation Date Value Abnormality Reference (Units ) Status BUN 08/15/2023 11:01:19 33 Above high normal 6-20 (mg/dL) Final Creatinine 08/15/2023 11:01:19 1.9 Above high normal 0.6-1.2 (mg/dL) Final Glomerular filtration rate/1.73 sq M.predicted [Volume Rate/Area] in Serum, Plasma or Blood by Creatinine-based formula (CKD-EPI) 08/15/2023 11:01:19 37 Below low normal >=60 (mL/min) Final eGFR is calculated based on the CKD-EPI 2020 equation SODIUM 08/15/2023 11:01:19 141 135-146 (m mol/L) Final Potassium 08/15/2023 11:01:19 4.4 3.5-5.1 (m mol/L) Final Cl 08/15/2023 11:01:19 106 98-107 (mm ol/L) Final CO2 08/15/2023 11:01:19 24 22-32 (mmo l/L) Final Anion gap 08/15/2023 11:01:19 11 7-15 (mmol /L) Final Glucose 08/15/2023 11:01:19 103 70-120 (mg /dL) Final Calcium 08/15/2023 11:01:19 9.3 8.4-10.2 ( mg/dL) Final Performing Location LABORATORY [facility] - [address] [place] [address]
--- OUTSIDE RECORDS SUMMARY | 2023-11-20 06:14 | External Medical Summary | Summary of Care ---
Author Name Unknown Organization [facility] Address [address] [place] [address] Phone [phone] Care Team Providers Care Hose Handler Name Role Phone Elissa Carrero MD Primary Care Provider Reason for Visit * Reason Onset Date Comments Pre-Op Testing 08/15/2023 Encounter Details Date Type Department Care Team (Latest Contact Info) Description 08/15/2023 10:30 AM EST Pre-Admission Testing Pre Surgery [facility] [address], [place] [id number] [facility] [address], [place] [id number] Pre-operative examination* Allergies Active Allergy Reactions Criticality Noted Date [...] (Adult) 09/03/2013 documented as of this encounter Anesthesia Record Procedure Summary Procedure Name Responsible Anesthesiologist Anesthesia Start Time Anesthesia Stop Time CYSTOURETHROSCOPY Events No events on file. Meds * Agents No agents on file. * Blood No blood administrations on file. Lines, Drains, and Airways Type Details Placement Removal Alteration in Skin Integrity Placement Date: 11/13/17; Time: 1019; Wound Type: Surgical Incision; Laterality: Left; Location: Flank 11/13/17 1019 by Elyse Dunne RN Urethral Catheter 05/23/22; 1523; Hand search engine marketing manager; Regular catheter; 16; 10 mL; Yes; None 05/23/22 1523 by Doug Tyler RN Drain 05/23/22; 1726; Jose Juan e (19); Left, Lower, Quadrant 05/23/22 1726 by Doug Tyler RN Alteration in Skin Integrity Placement Date: 05/23/22; Time: 1747; Wound Type: Surgical (4 incisions); Orientation/Laterality: Medial, Upper; Location: Abdomen 05/23/221747 by Doug Tyler RN documented in this encounter Social History Tobacco Use Types [...] No 05/23/2022 documented as of this encounter Patient Instructions * Patient Instructions* Cyril Pena CRNP - 08/15/2023 10:22 AM EST [facility]: Contact # [phone] Directions to Surgical Suite in from the [facility] Entrance The Surgical Waiting Room can be found in the [facility]. Enter through Main [facility] Entrance and the Waiting Room is directly in front of you. Proceed to check in and give them your name. Directions to Surgical Suite from the East Entrance Enter the East entrance and follow the hallway to the J elevator. Take the J elevator up to Level 1. Continue down the long hallway to the main [facility] Lobby. The Surgical Waiting Room will be on your Right. Proceed to check in and give them your Name. Directions to Surgical Suite from the Parking Garage Enter the [facility] lobby and proceed down the [place] to the left. At the end of the [place]ston, turn right. Continue down the long hallway to the main [facility] Lobby. The Surgical Waiting Room will be on your Right. Proceed to check in and give them your Name. THANK YOU FOR CHOOSING [facility]! PRE-OP PATIENT INFORMATION AND EDUCATION: MEDICATION INSTRUCTIONS: The day of surgery/procedure, you may TAKE the following medications with a sip of water up to 2 hours prior to your arrival time: -Lipitor -Cardura -Pepcid -Gabapentin -Prilosec -Zofran (if needed) -Compazine (if needed) -Tramadol (if needed) AVOID / DO NOT TAKE the following medications the morning of surgery/procedure: -Provigil STOP taking the following medications the noted number of days prior to surgery/procedure unless otherwise specified by your surgeon: -STOP taking your Multivitamin 10 days prior to surgery. Please follow surgeon's instructions regarding use of Aspirin, Coumadin, Plavix, Eliquis, and any other blood thinner including NSAIDs (non-steroidal anti- inflammatory drugs, eg, Advil, Ibuprofen, Motrin, Aleve, Naproxen). 10 days prior to surgery/procedure Stop all Herbal supplements, Green Tea, Turmeric, Melatonin, CBD, THC, etc. Stop all Vitamins (including Vitamin E) 24 hours prior to surgery/procedure DO NOT consume any alcohol. DO NOT use medical marijuana. DO NOT smoke or use tobacco products of any kind after midnight prior to surgery. *Using any of these products may increase your risks of procedural complications. IF IT IS LESS THAN RECOMMENDED STOPPAGE TIME PLEASE STOP AT TIME OF NOTIFICATION. FASTING RECOMMENDATIONS: To reduce risk, it is important for all elective surgery patients to follow the specific fasting guidelines listed below. DO NOT EAT after midnight on the night prior to your surgery date. You are allowed to drink clear liquids up to two hours prior to arrival time to the hospital or surgery center. Examples of clear liquids include water, clear fruit juice without pulp, clear carbonated beverages, clear tea, and black coffee. Any drinks given by your surgical service take as directed. THE DAY BEFORE YOUR SURGERY: -Drink plenty of fluid the day before your surgery. Contact your surgeon's office if you develop any of the following within 2 weeks of surgery: A cold Infection Fever Shingles Chicken pox or exposure to chicken pox Open areas such as scrapes, cuts, kevin or other skin conditions Rashes GENERAL INSTRUCTIONS FOR PREPARING FOR SURGERY: BATHING INSTRUCTIONS: Bathe the evening prior to and the morning of surgery/procedure. Cleanse your body using ONLY anti-bacterial soap (eg, Dial, Safeguard) or any specific soap/cleansers and instructions provided by your surgeon (eg, Chlorhexidine). -You should brush your teeth the morning of surgery. Do NOT apply any lotions, powders, sprays, creams, oils, make-up, or deodorants after bathing. No hairspray, or nail slovenian on fingers or toes. Day of surgery/procedure do not use tampons. If you wear contacts wear your eyeglasses if available otherwise bring your contact supplies with you to remove them prior to your surgery/procedure. If you wear glasses or dentures, please bring cases in which you can store them during your surgery. Please remove all piercings and jewelry and leave them at home. Wear comfortable and loose clothing. -Please leave all valuables at home. -If you use a CPAP and are staying overnight, please bring your mask. -If you use an assistive mobility device (walker, cane, etc), please label it with your name and bring to hospital. -An escort ups driver is required if you are being discharged the same day of the surgery. You should have a responsible adult over the age of 18 [address] you home. This person should be present with youin the hospital at the time of discharge and for the first 24 hours after the surgery to support your needs. If you are taking a taxi home, you must have your responsible democrat accompany you in the taxi ride home at the time of discharge. OR times subject to change. Please check voicemail messages the day/evening before your surgery forany updates. PRE-OP: You will be taken to the pre-op area where your vital signs (blood pressure, pulse and temperature)will be taken. Any preparations that need to be done will be done there. When it is time for your surgery, you will be taken to the operating room. PARENTS OF PEDIATRIC PATIENTS WILL BE ALLOWED TO STAY WITH THEIR CHILDREN UNTIL THEY ARE ESCORTED TO THE OPERATING ROOM OUTPATIENT SURGERY PATIENTS: After your surgery you will be taken to the Same Day Surgery Unit when you are awake and will go home from there. You will get instructions about your home care before you leave. Arrange to have someone drive you home from the hospital. You may not drive for 24 hours after anesthesia. You must havean adult stay with you at home for 24 hours after your operation. This is very important. If you are not able to comply with these guidelines, your Short Stay surgery cannot be done. ADMISSION PATIENTS: After your stay in the recovery area, you will be taken to your room. Your family may visit you in your room based on current visitation policy. If a next day discharge is expected, it is important to make arrangements for a ups driver to take you home. Please be aware our visitation policies are subject to change Professionals, attendants, caregivers or family members are allowable visitors for patients with intellectual, developmental or cognitive disabilities, communication barriers or behavioral concerns. Because patients' and families' needs vary, they will be taken into account when applying visitation restrictions. ANESTHESIA INFORMATION This information has been prepared to help you and your family better understand the process of anesthesia, so that you may help make well-informed decisions about your care. This information is alsoprovided to guide your completion of the [facility] [address] anesthesia consent form which addresses real, but infrequent, problems associated with anesthesia. IMPORTANT INFORMATION TO PREVENT YOUR SURGERY FROM BEING CANCELLED/ RESCHEDULED: --You are required to have a ups driver to take you home whether you are admitted to the hospital following your surgery or not --You are required to have a responsible adult with you for the first 24 hours after surgery to support your needs Types of Anesthesia: Local Anesthesia Local anesthetic drugs (numbing drugs) are usually injected into the tissues to numb just the specific location of your body requiring minor surgery, such as an area of your hand or foot. Regional Anesthesia -Regional anesthesia involves the use of local anesthetics (numbing drugs) to numb larger areas of your body by blocking nerves to those areas. This is commonly referred to as a nerve block. Another way of performing regional anesthesia is by blocking nerves of the spinal cord by injecting numbing m edicines with great exactness around those nerves. This is called spinal or epidural anesthesia depending on exactly where the medication is injected. The type of regional anesthesia selected dependson the type of surgery and whether regional anesthesia is being done to help with pain after surgery or as a part of the anesthesia for surgery. You may remain awake, be sedated, or be given a general anesthetic depending on the type of surgery and the type of regional anesthesia performed Monitored Anesthesia Care (MAC) -Describes a range of sedation that can be given to a patient undergoing a procedure. The level of sedation usually depends on what is needed for the procedure being performed. A patient could be awake and aware of the procedure being performed but be relaxed and able to follow instructions as needed or may be unaware of what is happening and only rouse to significant stimulation. A patient may be able to speak, hear things around them, and answer questions and follow commands but is not in pain or anxious. A patient may experience varying depths of sedation during the procedure. The use of general anesthesia could result if this type of anesthesia is ineffective. General Anesthesia - Occurs by using a combination of medications to put a patient into a deep, sleep-like, unresponsive state for surgery. This is required for many surgical procedures. Under general anesthesia, a patient does not feel pain and is unaware of what is happening during the procedure. Systems in the body may not function normally while a patient is under general anesthesia. They are monitored by the anesthesia provider and may need to be assisted while a patient is under general anesthesia. For example, a breathing device may need to be placed in the airway to assist breathing and medications may need to be given to ensure that your blood pressure and heart rate remain normal. Risks of Anesthesia: Regional/Local/Nerve Blocks -Include but are not limited to, , cardiac or respiratory arrest, permanent complete paralysis, permanent nerve injury, seizure, spinal headache, backache, pain in buttocks and legs, infection, bleeding, leakage of spinal fluid, inadequate pain relief, bowel or bladder dysfunction, prolonged numbness or pain, temporary drop in blood pressure, or allergic reaction to the medications. Monitored Anesthesia Care (MAC) -Common risks include temporary dizziness, light-headedness, nausea and/or vomiting, and leakage ofintravenous fluid into the tissues with swelling or discoloration of the area or residual pain. Less common risks include, but are not limited to, , heart attack, permanent brain damage, stroke,pneumonia, blood clots, awareness, nerve stretch injury of your arm, neck or leg, permanent liver damage and allergic reaction to the medications. General Anesthesia -More common risks include temporary sore throat, pain in the neck or other muscles, dizziness, light-headedness, nausea and/or vomiting, and leakage of intravenous fluid into the tissues with swelling or discoloration of the area or residual pain. Less common risks include, but are not limited to,, heart attack, permanent brain damage, stroke, pneumonia, blood clots, irritation of the cornea of your eye, vision loss, loosened or broken teeth, or other oral injuries, awareness, nerve stretch injury of the arm, neck or leg, hoarseness, laryngospasm, permanent liver damage and allergic reaction to the medications. History of anesthesia complications: If you or a family member have had a complication related to anesthesia such as difficulty with placement of a breathing tube or a serious reaction to a medication administered for anesthesia, pleasetell your anesthesia provider. Having this information will help keep you safe while under anesthesia Nausea: A common side effect of anesthesia is nausea, but some patients do experience both nausea and vomiting. If you have experienced nausea or vomiting after anesthesia in the past, be sure to tell your anesthesia provider so medication can be given to help prevent it from happening again. Patient safety/consenting process: All surgical procedures and anesthetics have some small risks. They are dependent upon many factorsincluding the type of surgery and your medical condition. That is why it is important to know aboutany underlying medical problems, how they are treated and how they can be managed to reduce the risks of anesthesia and surgery. Thus, it is important for your anesthesia provider to ask detailed questions about your medical history, and to know what prescription medications you are taking, including dosages and schedules, as well as any over the counter or herbal medicines and supplements. You must notify the doctor of any of the following: -if you are or possibly -if you have any sensitivity to medications -present mental and physical condition -if recently consumed alcohol or non-clear liquids -if you are presently on psychiatric mood-altering drugs or other medications If you are a female of child-bearing age and you use any form of hormone-based contraception, please continue to use it and, in addition, use an alternative form of contraception, such as condoms andspermicide for a month after discharge from the hospital. This is because during the hospitalization you might receive one or more medications that may render hormone-based contraceptives ineffective for several days or weeks. The affected contraceptives include, but are not limited to, the usual contraceptive pills, most types of intrauterine devices, Depo-Provera shots, hormonal patches, and hormonal vaginal rings. If you are not sure, contact your primary care physician, your ceo ziff davis, or your surgeon to check if this warning applies to you. You may need to have invasive monitoring, which includes the insertion of catheters into your veinsand arteries. This is done to measure pressures, to take blood samples, and may be used in emergentsituations for intravenous access. This monitoring has risks including, but not limited to, injury to your arteries, lung collapse, bleeding, nerve injury as well as the risks related to anesthesia. An esophageal probe may be used to monitor your heart, this monitor has risks which include sore throat, hoarseness, difficulty with swallowing, loosened or broken teeth and esophageal injury. Major complications are rare but could include , respiratory distress, an abnormal heartbeat, infection, and bleeding. As part of the consent to administer anesthesia authorization you will discuss the following with the anesthesia doctor and his/her associates: -your present condition and diagnosis as it pertains to anesthesia or sedation administration -a description of the proposed anesthetic/sedation technique or procedure to be used -significant risks and benefits of the proposed anesthetic/sedation technique or procedure -any applicable alternatives, including their risks and benefits -if applicable, use of back-up method of contraception for 30 days after discharge -if applicable, the option of having no treatment and the potential results of this -if your procedure is in an outpatient surgery setting-the risk associated with having this procedure in this type of setting should be discussed as well as the potential need for transfer to the hospital if necessary Please be sure to have all questions that you have answered prior to signing the consent to administer anesthesia. You can make your care safer by being an active, informed patient. It is important that you are involved in your health care. Being a good patient does not mean being a silent one. If you have questions, problems, safety concerns or unmet needs, please let us know if you would like further clarification of the "Patient Rights and Responsibilities" as they pertain to you, or would like more information regarding our complaint and for grievance process, please call the site where you receive care and request to speak withthe patient advocate line. documented in this encounter Nursing Notes * Roxy Espinoza MED ASSIST - 08/15/2023 11:01 AM EST Patient identified by: name/birthdate Current Lab work: Lab work drawn from right arm and basilic antecubital vein . Previous Lab work: N/A EKG obtained: done today - 08/15/2023 Other Studies: N/A * Cyril Pena CRNP - 08/15/2023 10:21 AM EST [facility]: Contact # [phone] Directions to Surgical Suite in from the [facility] Entrance The Surgical Waiting Room can be found in the Lobby [facility]. Enter through Main [facility] Entrance and the Waiting Room is directly in front of you. Proceed to check in and give them your name. Directions to Surgical Suite from the East Entrance Enter the East entrance and follow the hallway to the J elevator. Take the J elevator up to Level 1. Continue down the long hallway to the main [facility]. The Surgical Waiting Room will be on your Right. Proceed to check in and give them your Name. Directions to Surgical Suite from the Parking Garage Enter the [facility] and proceed down the [place] to the left. At the end of the [place], turn right. Continue down the long hallway to the main [facility]. The Surgical Waiting Room will be on your Right. Proceed to check in and give them your Name. THANK YOU FOR CHOOSING [facility]! PRE-OP PATIENT INFORMATION AND EDUCATION: MEDICATION INSTRUCTIONS: The day of surgery/procedure, you may TAKE the following medications with a sip of water up to 2 hours prior to your arrival time: -Lipitor -Cardura -Pepcid -Gabapentin -Prilosec -Zofran (if needed) -Compazine (if needed) -Tramadol (if needed) AVOID / DO NOT TAKE the following medications the morning of surgery/procedure: -Provigil STOP taking the following medications the noted number of days prior to surgery/procedure unless otherwise specified by your surgeon: -STOP taking your Multivitamin 10 days prior to surgery. Please follow surgeon's instructions regarding use of Aspirin, Coumadin, Plavix, Eliquis, and any other blood thinner including NSAIDs (non-steroidal anti- inflammatory drugs, eg, Advil, Ibuprofen, Motrin, Aleve, Naproxen). 10 days prior to surgery/procedure Stop all Herbal supplements, Green Tea, Turmeric, Melatonin, CBD, THC, etc. Stop all Vitamins (including Vitamin E) 24 hours prior to surgery/procedure DO NOT consume any alcohol. DO NOT use medical marijuana. DO NOT smoke or use tobacco products of any kind after midnight prior to surgery. *Using any of these products may increase your risks of procedural complications. IF IT IS LESS THAN RECOMMENDED STOPPAGE TIME PLEASE STOP AT TIME OF NOTIFICATION. FASTING RECOMMENDATIONS: To reduce risk, it is important for all elective surgery patients to follow the specific fasting guidelines listed below. DO NOT EAT after midnight on the night prior to your surgery date. You are allowed to drink clear liquids up to two hours prior to arrival time to the hospital or surgery center. Examples of clear liquids include water, clear fruit juice without pulp, clear carbonated beverages, clear tea, and black coffee. Any drinks given by your surgical service take as directed. THE DAY BEFORE YOUR SURGERY: -Drink plenty of fluid the day before your surgery. Contact your surgeon's office if you develop any of the following within 2 weeks of surgery: A cold Infection Fever Shingles Chicken pox or exposure to chicken pox Open areas such as scrapes, cuts, kevin or other skin conditions Rashes GENERAL INSTRUCTIONS FOR PREPARING FOR SURGERY: BATHING INSTRUCTIONS: Bathe the evening prior to and the morning of surgery/procedure. Cleanse your body using ONLY anti-bacterial soap (eg, Dial, Safeguard) or any specific soap/cleansers and instructions provided by your surgeon (eg, Chlorhexidine). -You should brush your teeth the morning of surgery. Do NOT apply any lotions, powders, sprays, creams, oils, make-up, or deodorants after bathing. No hairspray, or nail slovenian on fingers or toes. Day of surgery/procedure do not use tampons. If you wear contacts wear your eyeglasses if available otherwise bring your contact supplies with you to remove them prior to your surgery/procedure. If you wear glasses or dentures, please bring cases in which you can store them during your surgery. Please remove all piercings and jewelry and leave them at home. Wear comfortable and loose clothing. -Please leave all valuables at home. -If you use a CPAP and are staying overnight, please bring your mask. -If you use an assistive mobility device (walker, cane, etc), please label it with your name and bring to hospital. -An escort ups driver is required if you are being discharged the same day of the surgery. You should have a responsible adult over the age of 18 [address] you home. This person should be present with youin the hospital at the time of discharge and for the first 24 hours after the surgery to support your needs. If you are taking a taxi home, you must have your responsible democrat accompany you in the taxi ride home at the time of discharge. OR times subject to change. Please check [employer] Pharm[employer]sil messages the day/evening before your surgery forany updates. PRE-OP: You will be taken to the pre-op area where your vital signs (blood pressure, pulse and temperature)will be taken. Any preparations that need to be done will be done there. When it is time for your surgery, you will be taken to the operating room. PARENTS OF PEDIATRIC PATIENTS WILL BE ALLOWED TO STAY WITH THEIR CHILDREN UNTIL THEY ARE ESCORTED TO THE OPERATING ROOM OUTPATIENT SURGERY PATIENTS: After your surgery you will be taken to the Same Day Surgery Unit when you are awake and will go home from there. You will get instructions about your home care before you leave. Arrange to have someone drive you home from the hospital. You may not drive for 24 hours after anesthesia. You must havean adult stay with you at home for 24 hours after your operation. This is very important. If you are not able to comply with these guidelines, your Short Stay surgery cannot be done. ADMISSION PATIENTS: After your stay in the recovery area, you will be taken to your room. Your family may visit you in your room based on current visitation policy. If a next day discharge is expected, it is important to make arrangements for a ups driver to take you home. Please be aware our visitation policies are subject to change Professionals, attendants, caregivers or family members are allowable visitors for patients with intellectual, developmental or cognitive disabilities, communication barriers or behavioral concerns. Because patients' and families' needs vary, they will be taken into account when applying visitation restrictions. ~SEE ANESTHESIA EVENT FOR PRE-OP ANESTHESIA ASSESSMENT~ ~~~~~~~~~~~~~~~~~~~~~~~~~~~~~~~~~~~~~~~~~~~~~~~~~~~~ Patient identified by name/birthdate Optime case procedure confirmed with surgical consent Laterality confirmed as N/a Surgery date at time of Pre-Surgery Center Encounter: 08/29/2023 What procedure is patient having? Cysto for surveillance for malignant neoplasm of urinary bladder Anesthesia Consent pool notified: N/A In an emergency, is patient willing to accept blood products or blood transfusion? Yes Does Blood Bank order need placed? No. Anesthesia evaluation requested per case documentation. No Preop Eval Requested? No PATIENT EDUCATION SCREENING Education Screening: Patient Preoperative bathing instructions were reviewed with patient. Motivation Level: Asks Questions and Eager to Learn Language Barrier: No Physical Barrier: N/A Patient Preferred Learning Methods: Reading and Lecture LEARNING NEED: Printed Patient Education Given: Preop Information: Adult Persons present for education: Patient METHOD: One to One OUTCOME: State / Describe / Explain PATIENT INSTRUCTIONS GIVEN: General Preoperative Instructions Reviewed Medication Instructions Reviewed NPO Instructions Reviewed Verbalizes understanding of education: Yes COVID-19/Coronavirus Screening: Informant: Patient Have you been experiencing any symptoms of viral infection of the upper respiratory system (fever, cough, shortness of breath, myalgia, fatigue) in the last 16 days? No Symptoms started N/a Symptoms include none Symptom severity is N/a Additional details include: N/A In the last month, have you been in contact with someone who was confirmed or suspected to have Coronavirus/ COVID-19? No In the last month, have you been in contact with someone who was experiencing upper respiratory symptoms of viral infection? No Have you been diagnosed with COVID-19/Coronavirus? Yes If so, when were you given this diagnosis? 11/06/2022, patient denies residual s/sx, s/p vaccination x 3 doses Are you currently experiencing any residual symptoms? When did your symptoms resolve? No, N/a Has patient undergone Infectious Disease consultation for Coronavirus/ COVID-19? No Does patient require Infectious Disease consultation/referral? No Pre-Anesthesia Review of Systems, Health History and Education completed Signature: REHAN Bolivar 08/15/2023 documented in this encounter Plan of Treatment Upcoming Encounters Date Type Department Care Team (Latest Contact Info) Description 08/27/2023 10:15 AM EST Office Visit Hematology/Oncology [facility] Tammy [place] [address] [facility] [place] [address] Romel Perez MD [address] [place] [address] 08/29/2023 2:00 PM EST Hospital [place] [facility] [facility] [facility] [address] [place] [address] Nabeel Alvarado MD [address] [place] [address] 08/29/2023 2:00 PM EST Anesthesia Event [place] [facility] [facility] [address] [place] [facility] [address] Cyril Pena CRNP [address] [place] [address] 08/29/2023 2:00 PM EST - 08/29/2023 3:18 PM EST Surgery [place] [facility] [facility] [address] [facility] [address] Nabeel Alvarado MD [address] [place], [place] [id number] CYSTOURETHROSCOPY 08/31/2023 10:00 AM EST Imaging Radiology [address], [place] [address] [place] [address] 09/05/2023 10:15 AM EST Office Visit Hematology/Oncology [facility] [place] [address] [facility] [place] [address] Romel Perez MD [address] [facility] [address] [place] [address] 09/19/2023 1:00 PM EST Office Visit Urology, [place] [address] [place] [address] Nabeel Alvarado MD [address] [place] [address] 11/23/2023 10:15 AM EST Office Visit Family Medicine, [facility] [address] [facility] [place] [address] [place] [phone] Elissa Carrero MD 70[address] [facility] [address] [place] [address] 05/13/2024 2:00 PM EDT Office Visit Nephrology, [facility] [address] [facility] [address] [place] [address] Geraldo Sheehan MD [address] [facility] [place], [place] [address] Scheduled Procedures Name Priority Associated Diagnoses Date/Ti me CYSTOURETHROSCOPY Malignant neoplasm of urinary bladder, unspecified site (HCC) 08/29/2023 2:00 PM EST Health Maintenance Due Date Last Done Comments Depression Screening 1957 Albumin/Creatinine Ratio 02/07/1964 CKD PHOS USE SMARTSET 32995 02/07/1964 Zoster Vaccines (2 of 3) 10/29/2013 09/03/2013 COVID-19 Vaccine ( season) 2023 01/09/2022, 06/28/2021, 11/10/2020, Additional history exists Influenza Vaccine (FLU shot) (#1) 2023 06/27/2022, 07/12/2021, 07/13/2020, Additional history exists GFR 01/15/2024 07/17/2023, 07/12/2022, 12/26/2022, Additional history exists CKD HGB USE SMARTSET 50840 07/17/202407/17, 07/17/2023, 04/09/2023, Additional history exists DTaP,Tdap,and [...] as of this encounter Visit Diagnoses Diagnosis Pre-operative examination- Primary Preoperative examination, unspecified Malignant neoplasm of urinary bladder, unspecified site [...] the patient have Health Care Power of Cheese Cooker? No Care Teams Hose Handler Relationship Specialty Start Date End Date Elissa Carrero MD [address] [address] PCP - General Family Medicine 12/29/22 documented as of this encounter
--- OUTSIDE RECORDS SUMMARY | 2023-11-20 06:14 | External Medical Summary | Summary of Care ---
Author Name Unknown Organization [facility] Address [address] [place] [address] Phone [phone] Care Team Providers Care Incubator Machine Operator Name Role Phone Elissa Carrero MD Primary Care Provider Encounter Details Date Type Department Care Team (Late st Contact Info) Description 07/31/2023 Orders Only Hematology/Oncology, [facility] [address] [place] [address] Romel Perez MD [address] [place] [address] Reply from [place]abe[place] Roa about PET scan finding: Allergies Active Allergy Reactions Criticality Noted Date [...] as of this encounter Progress Notes * Romel Perez MD - 07/31/2023 4:27 PM EST Reply from Nabeel Roa about PET scan finding: Given the observation that he had both disease in the renal bed and retroperitoneal lymph nodes, itis more likely than not that he has systemic disease. I relooked at his path report and this development is not surprising. A. Left kidney, ureter, and bladder cuff, left radical nephroureterectomy: High grade urothelial carcinoma, involving ureter and renal pelvis, invasive into periureteral adipose tissue and renal pelvic adipose tissue, with lymphovascular invasion, see synoptic summary Ureteral/bladder cuff margin and vascular margins, negative for tumor. documented in this encounter Plan of Treatment Upcoming Encounters Date Type Department Care Team (Late st Contact Info) Description 08/15/2023 9:30 AM EST Office Visit Urology, [place] [address] [place] [address] Rojelio Rose PA-C [address] [place] [address] 08/15/2023 10:30 AM EST Pre-Admission Testing Pre [facility], [place] [address] [place] [address] [facility] [address] [place] [address] 08/27/2023 10:15 AM EST Office Visit Hematology/Oncology [employer] [address] [place] [address] Romel Perez MD [address] [place] [address] 08/29/2023 2:00 PM EST Hospital Encounter [place] [facility] [place]OM [facility] [address] [place] [address] Nabeel Alvarado MD [address] [place] [address] 08/29/2023 2:00 PM EST - 08/29/2023 3:18 PM EST Surgery OR [facility] OPERATING ROOM [facility] [address] [place] [address] Nabeel Alvarado MD [address] [place] [address] CYSTOURETHROSCOPY 09/19/2023 1:00 PM EST Office Visit Urology, [place] [address] [place] [address] Nabeel Alvarado MD [address] [place] [address] 11/23/2023 10:15 AM EST Office Visit Family Medicine, [facility] [address] [facility] [address] [place] [phone] Elissa Carrero MD 70[address] [facility] [address] [place] [address] 05/13/2024 2:00 PM EDT Office Visit Nephrology, [facility]luca Munoz [address] [place] [address] Geraldo Sheehan MD [address] [place], [place] [address] Scheduled Procedures Name Priority Associated Diagnoses Date/Ti me CYSTOURETHROSCOPY Malignant neoplasm of urinary bladder, unspecified site (HCC) 08/29/2023 2:00 PM EST Health Maintenance Due Date Last Done Comments Depression Screening 1957 Albumin/Creatinine Ratio 02/07/1964 CKD PHOS USE SMARTSET 17752 02/07/1964 Zoster Vaccines (2 of 3) 10/29/2013 09/03/2013 COVID-19 Vaccine ( season) 2023 01/09/2022, 06/28/2021, 11/10/2020, Additional history exists Influenza Vaccine (FLU shot) (#1) 2023 06/27/2022, 07/12/2021, 07/13/2020, Additional history exists GFR 01/15/2024 07/17/2023, 03/18, 12/26/2022, Additional history exists CKD HGB USE SMARTSET 93310 07/17/202407/17, 07/17/2023, 04/09/2023, Additional history exists DTaP,Tdap,and [...] the patient have Health Care Power of Drum Filler? No Care Teams Incubator Machine Operator Relationship Specialty Start Date End Date Elissa Carrero MD [address] [address] PCP - General Family Medicine 12/29/22 documented as of this encounter
--- OUTSIDE RECORDS SUMMARY | 2023-11-20 06:14 | External Medical Summary | Summary of Care ---
Author Name Unknown Organization [facility] Address [address] [place] [place] [place] [address] Phone [phone] Care Team Providers Care Manager Medical Affairs Name Role Phone Elissa Carrero MD Primary Care Provider Reason for Referral * Precert (Within 10 days (routine)) - Authorized Specialty Diagnoses / Procedures Referred By Contac t Referred To Contact Radiology Diagnoses Cancer of left renal pelvis (HCC) Procedures CT ABDOMEN WO IV/ORAL CONTRAST Romel Perez MD [address] [place] [address] Referral ID Status Reason Start Date Expiration Date V isits Requested Visits Authorized [id number] Authorized 08/31/2023 999 999 Reason for Visit * Reason Comments Follow Up Encounter Details Date Type Department Care Team (Late st Contact Info) Description 08/01/2023 12:30 PM EST Office Visit Hematology/Oncology [facility] [address] [place] [address] Romel Perez MD [address] [place] [address] Cancer of left renal pelvis (HCC)* Allergies Active Allergy Reactions Criticality Noted Date Comments Lisinopril 07/04/2019 Other reaction(s): Angioedema Piroxicam 10/25/2022 Other reaction(s): muscle spasms documented as of this encounter (statuses as of 08/01/2023) Medications Medication Sig Dispensed Refills Start Date [...] as of this encounter (statuses as of 08/01/2023) Active Problems Problem Noted Date Diagnosed Date [...] as of this encounter (statuses as of 08/01/2023) Resolved Problems Problem Noted Date Diagnosed Date Resolved Date Stage 3a chronic kidney disease 10/27/2022 01/24/2023 Overview: Per CKD protocol documented as of this encounter (statuses as of 08/01/2023) Immunizations Name Administration Dates Next Due COVID-19 mRNA, LNP-s, No Pre serve, 2-Dose Series ([employer]) 01/09/2022,06/28/2021,11/10/2020,10/21 Pneumococcal Conjugate Vacc, 13 Valent (Prevnar) [...] Sign Reading Time Taken Comments Blood Pressure 133/85 08/01/2023 12:29 PM EST Pulse 69 08/01/2023 12:29 PM EST Temperature - - Respiratory Rate 16 08/01/2023 12:29 PM EST Oxygen Saturation 95% 08/01/2023 12:29 PM EST Inhaled Oxygen Concentration - - Weight 74.2 kg (163 lb 9.6 oz) 08/01/2023 12:29 PM EST Height 163.8 cm (5' 4.5") 08/01/2023 12:29 PM ES T Body Mass Index 27.65 08/01/2023 12:29 PM EST documented in this encounter Functional [...] Progress Notes * Romel Perez MD - 08/01/2023 12:25 PM EST Outpatient Consult Note Data Source: Patient, Epic record. Data Source: Patient, Epic record. 08/01/2023 12:25 PM Drew Rosen [id number] 78 year old Patient Encounter: HEMATOLOGY/ONCOLOGY [facility] Cancer Diagnosis: Renal pelvis transitional cell [...] the prior examination with SUV of 4.7. Interval History: Reply from [place]abe[place] Roa about PET scan finding: Given the observation that he had both disease in the renal bed and retroperitoneal lymph nodes, itis more likely than not that he has systemic disease. I relooked at his path report and this development is not surprising. He return to clinic to discuss options of further treatment. Overall clinically he is stable without any new symptoms. Denies any headache, dizziness, chest pain palpitation pain, nausea, vomiting, fever, night sweats. LABS/IMAGING: Results for orders placed or performed [...] bleeding Genitourinary: Denies Hematuria or dysuria Musculoskeletal: Stable pain Psychiatric: No vegetative signs of depression Endocrine: [...] Types: Cigarettes Quit date: 09/17/2001 Years since quittin.8 Smokeless tobacco: Never Vaping Use Vaping Use: Never used Substance Use Topics Alcohol use: Yes Comment: rarely Drug use: No Review of patient's allergies indicates: Allergen Reactions Lisinopril Other reaction(s): Angioedema Piroxicam Other reaction(s): muscle spasms PHYSICAL EXAMINATION: General Appearance: Healthy appearing patient in no acute distress There were no vitals taken for this visit. Vitals reviewed. HEENT: No oral or pharyngeal [...] has metastatic disease and need systemic treatment. Patient return to clinic to discuss the options of the treatment. Discussed with the patient and in detail about the diagnosis and prognosis and reviewed all the available blood tests and PET scan finding with them. Patient is scheduled for the eye surgery in next few weeks. He has metastatic incurable disease and can benefit with immunotherapy. After detailed discussion we decided to hold treatment and repeat the scan in 6 weeks. In the meantime he will have eye surgery done. I will also request the pathology for PD-L1 and NGS. PLAN: As above. He will return clinic for follow-up in [address] scan of the abdomen pelvis. The patient voiced understanding of all of [...] in this encounter Nursing Notes * Sulma Stiles, [facility] - 08/01/2023 12:30 PM EST Patient identifed by name and birthdate Do you have any concerns about pain management for today's visit? No Living Will or Advance Directive for Health Care as noted on the problem list. [employer] is a way you can talk to your provider on line through e-mail. Would you like to sign up? I can activate it for you? NO Filed Vitals: 08/01/23 1229 BP: 133/85 Pulse: 69 Resp: 16 SpO2: 95% Weight: 74.2 kg (163 lb 9.6 oz) Height: 1.638 m (5' 4.5") Patient was instructed to not get up [...] 08/15/2023 9:30 AM EST Office Visit Urology, [place] [address] [place] [address] Rojelio Rose PA-C [address] [place] [address] 08/15/2023 10:30 AM EST Pre-Admission Testing Pre Surgery Center, [place] [address] [place] [address] [facility] [address] [place] [address] 08/27/2023 10:15 AM EST Office Visit Hematology/Oncology [facility] [address] [place] [address] Romel Perez MD 200 [facility] [place] [address] 08/29/2023 2:00 PM EST Hospital En[place] [facility] [facility] [address] [place] [address] Nabeel Alvarado MD [address] [place], [place] [id number] 08/29/2023 2:00 PM EST - 08/29/2023 3:18 PM EST Surgery [place] [facility] [facility] [address] [place] [address] Nabeel Alvarado MD [address] [place] [address] CYSTOURETHROSCOPY 08/31/2023 10:00 AM EST Imaging Radiology [address] [place] [address] [facility] [address] 09/05/2023 10:15 AM EST Office Visit Hematology/Oncology [employer] [address] [facility] [place] [address] Romel Perez MD 200 [facility] [place] [address] 09/19/2023 1:00 PM EST Office Visit Urology, [place] [address] [place] [address] Nabeel Alvarado MD [address] [place] [address] 11/23/2023 10:15 AM EST Office Visit Family Medicine, [facility] [address] [facility] [address] [place] [phone] Elissa Carreor MD 70[address] [facility] [address] [place] [address] 05/13/2024 2:00 PM EDT Office Visit Nephrology, Gianluca Munoz [address] [facility] [place] [address] Geraldo Sheehan MD 200 [facility] [place] [address] Pending Results Name Type Priority Associated Diagnoses Date /Time ANATOMIC PATHOLOGY (BM/SURGICAL/CYTOLOGY) ADD ON REQUEST Lab Routine Cancer of left renal pelvis (HCC) 08/01/2023 12:45 PM EST Scheduled Orders Name Type Priority Associated Diagnoses Orde r Schedule CT ABDOMEN WO IV/ORAL CONTRAST Medical Imaging Routine Cancer of left renal pelvis (HCC) Expected: 08/31/2023, Expires: 08/31/2024 Scheduled Procedures Name Priority Associated Diagnoses Date/Ti me CYSTOURETHROSCOPY Malignant neoplasm of urinary bladder, unspecified site (HCC) 08/29/2023 2:00 PM EST Health Maintenance Due Date Last Done Comments Depression Screening 1957 Albumin/Creatinine Ratio 02/07/1964 CKD PHOS USE SMARTSET 82904 02[birth year]07/1963 Zoster Vaccines (2 of 3) 10/29/2013 09/03/2013 COVID-19 Vaccine ( season) 2023 01/09/2022, 06/28/2021, 11/10/2020, Additional history exists Influenza Vaccine (FLU shot) (#1) 2023 06/27/2022, 07/12/2021, 07/13/2020, Additional history exists GFR 01/15/2024 07/17/2023, 03/18, 12/26/2022, Additional history exists CKD HGB USE SMARTSET 93543 07/17/202407/17, 07/17/2023, 04/09/2023, Additional history exists DTaP,Tdap,and [...] Cancer of left renal pelvis (HCC)- Primary Malignant neoplasm of urinary bladder, unspecified site [...] the patient have Health Care Power of Floorworker Distributor? No Care Teams Manager Medical Affairs Relationship Specialty Start Date End Date Elissa Carrero MD [address] [address] PCP - General Family Medicine 12/29/22 documented as of this encounter
--- OUTSIDE RECORDS SUMMARY | 2023-11-20 06:14 | External Medical Summary | Summary of Care ---
Author Name Unknown Organization [facility] Address [address] [facility] [place] [address] Care Team Providers Care Combat Engineer Name Role Phone Elissa Carrero MD Primary Care Provider Reason for Visit * Reason Comments pre-op exam Patient here for a P re-op exam for Cataract Surgery 08/06/23 and 08/22/[address] Camp. No PAC needed. He has no medication changes. He had his annual PET scan and per the patient states his Oncologist found something and his cancer has returned. Encounter Details Date Type Department Care Team (Late st Contact Info) Description 07/31/2023 2:45 PM EST Office Visit Family Medicine, [facility] EMSO [address] [facility] [address] [place] [phone] Elissa Carrero MD 70[address] [facility] [address] [place] [address] Cataract of both eyes, unspecified cataract type*; Cancer of left renal pelvis (HCC); Chronic kidney disease, stage 3b (HCC); HTN, goal below 130/80 Allergies Active Allergy Reactions Criticality Noted Date [...] mRNA, LNP-s, No Pre serve, 2-Dose Series ([employer]) 01/09/2022,06/28/2021,11/10/2020,10/21 Pneumococcal Conjugate Vacc, 13 Valent (Prevnar) [...] Sign Reading Time Taken Comments Blood Pressure 138/78 07/31/2023 2:27 PM EST Pulse 65 07/31/2023 2:27 PM EST Temperature 36 C (96.8 F) 07/31/2023 2:27 PM EST Respiratory Rate - - Oxygen Saturation - - Inhaled Oxygen Concentration - - Weight 74.3 kg (163 lb 12.8 oz) 07/31/2023 2:27 PM EST Height 163.8 cm (5' 4.5") 07/31/2023 2:27 PM EST Body Mass Index 27.68 07/31/2023 2:27 PM EST documented in this encounter Functional [...] as of this encounter Progress Notes * Elissa Carrero MD - 07/31/2023 2:44 PM EST Images from the original note were not included. History of Present Illness Drew Rosen is a 78 year old male that presents for pre-op exam (Patient here for a Pre-op examfor Cataract Surgery 08/06/23 and 08/22/[address] Camp. No PAC needed. He has no medication changes. He had his annual PET scan and per the patient states his Oncologist found something and his cancer has returned. ) Planning for cataract surgery with Dr Camp. 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 Using a cane for ambulation due to back trouble, no SOB or CP with exertion. Exercises most days ontreadmill and light weights. Most recent kidney function GFR 34, stable. Review of Systems Constitutional: Negative for chills and fever. Respiratory: Negative for chest tightness and shortness of breath. Cardiovascular: Negative for chest pain and leg swelling. Physical Exam Vitals: 07/31/23 1427 Temp: 36 C (96.8 F) Pulse: 65 BP: 138/78 BMI: 27.69 Physical Exam Vitals and nursing note reviewed. Constitutional: Appearance: Normal appearance. Cardiovascular: Rate and Rhythm: Normal rate and regular rhythm. Pulses: Normal pulses. Heart sounds: Normal heart sounds. Pulmonary: Effort: Pulmonary effort is normal. Breath sounds: Normal breath sounds. Musculoskeletal: Cervical back: Normal range of motion. Right lower leg: No edema. Left lower leg: No edema. Skin: General: Skin is warm and dry. Neurological: Mental Status: He is alert. I have reviewed the following results: BMP results Recent Labs Units 07/17/23 1029 04/09/23 1050 12/26/22 1027 SODIUM - [facility] mmol/L 140 138 140 POTASSIUM - [facility] mmol/L 4.9 4.3 4.4 CHLORIDE - [facility] mmol/L 105 103 105 CO2 - [facility] mmol/L 24 24 27 CREATININE - [facility] mg/dL 2.0* 1.8* 1.9* BUN - [facility] mg/dL 31* 27* 29* Lipid panel resultsNo results for input(s): "CHOL", "LDLCALC", "HDL", "TRIG" in the last 32055 hours. CBC results Recent Labs Units 07/17/23 1029 04/09/23 1050 12/26/22 1027 WBC AUTO - [facility] K/uL 5.54 5.13 4.95 HGB - [facility] g/dL 14.3 12.6* 13.1* HCT - [facility] % 43.7 38.3* 39.4* PLATELET AUTO - [facility] K/uL 196 187 178 HbA1c results Recent Labs Units 07/17/23 1029 05/24/22 0607 HEMOGLOBIN A1C - [facility] % 6.1* 5.9* TSH results No results for input(s): "TSH" in the last 30666 hours. Vitamin D results No results for input(s): "25OHVITAMIND" in the last 82557 hours. Hepatic panel results Recent Labs Units 07/17/23 1029 04/09/23 1050 12/26/22 1027 PROTEIN - [facility] g/dL 7.0 6.6 7.0 BILIRUBIN, TOTAL - [facility] mg/dL 0.3 0.4 0.3 ALKALINE PHOSPHATASE - [facility] U/L 58 69 58 AST - [facility] U/L 18 17 18 ALT - [facility] U/L 11 8* 7* Assessment and Plan Cataract of both eyes, unspecified cataract type Surgery planned per Dr Camp. History, physical, recent labs reviewed. No signs of active cardiopulmonary or infectious process at this time. OK to clear for surgery without additional testing/evaluation. Cancer of left renal pelvis (HCC) Reviewed PET report and Oncology notes - planning to FU with Urology for next steps. Chronic kidney disease, stage 3b (HCC) HTN, goal below 130/80 Reviewed CMP, Nephrology notes - stable. BP at goal on home checks (120s/60s) Wrap-Up documented in this encounter Plan of Treatment Upcoming Encounters Date Type Department Care Team (Late st Contact Info) Description 08/15/2023 9:30 AM EST Office Visit Urology, [place] [address] [place] [address] Rojelio Rose PA-C [address] [place] [address] 08/15/2023 10:30 AM EST Pre-Admission Testing [facility], [place] [address] [place] [address] Nicola Kirk [address] [place] [address] 08/27/2023 10:15 AM EST Office Visit Hematology/Oncology [place], [place] [address] [place] [address] Romel Perez MD 200 [facility] [place] [address] 08/29/2023 2:00 PM EST Hospital Encounter [place] [facility] OPERATING ROOM [facility] [place] [address] [place] [address] Nabeel Alvarado MD [address] [place] [address] 08/29/2023 2:00 PM EST - 08/29/2023 3:18 PM EST Surgery OR [facility], OPERATING ROOM [facility] [place] [address] [place] [address] Nabeel Alavrado MD [address] [place] [address] CYSTOURETHROSCOPY 09/19/2023 1:00 PM EST Office Visit Urology, [place] [address], [place] [phone] Nabeel Alvarado MD [address] [place] [address] 11/23/2023 10:15 AM EST Office Visit Family Medicine, [facility] [address] [facility] [address] [place] [phone] Elissa Carrero MD 7095 [facility] [address] [place] [address] 05/13/2024 2:00 PM EDT Office Visit Nephrology, [place]luc[place] Munoz [address], [place] [address] Geraldo Sheehan MD [address] [facility] [address] [place], [place] [address] Scheduled Procedures Name Priority Associated Diagnoses Date/Ti me CYSTOURETHROSCOPY Malignant neoplasm of urinary bladder, unspecified site (HCC) 08/29/2023 2:00 PM EST Health Maintenance Due Date Last Done Comments Depression Screening 1957 Albumin/Creatinine Ratio 02/07/1964 CKD PHOS USE SMARTSET 71618 02/07/1964 Zoster Vaccines (2 of 3) 10/29/2013 09/03/2013 COVID-19 Vaccine ( season) 2023 01/09/2022, 06/28/2021, 11/10/2020, Additional history exists Influenza Vaccine (FLU shot) (#1) 2023 06/27/2022, 07/12/2021, 07/13/2020, Additional history exists GFR 01/15/2024 07/17/2023, 03/18, 12/26/2022, Additional history exists CKD HGB USE SMARTSET 83213 07/17/202407/17, 07/17/2023, 04/09/2023, Additional history exists DTaP,Tdap,and [...] as of this encounter Visit Diagnoses Diagnosis Cataract of both eyes, unspecified cataract type- Primary Cancer of left renal pelvis (HCC) Chronic kidney disease, stage 3b (HCC) HTN, goal below 130/80 Unspecified essential hypertension Malignant neoplasm of urinary bladder, unspecified site [...] the patient have Health Care Power of Theater Projectionist? No Care Teams Combat Engineer Relationship Specialty Start Date End Date Elissa Carrero MD [address] [address] PCP - General Family Medicine 12/29/22 documented as of this encounter
--- OUTSIDE RECORDS SUMMARY | 2023-11-20 06:14 | External Medical Summary ---
Author Name Unknown Address Unknown Organization K01:[facility] - [address] [place] [id number] Laboratory Report Ordering Provider Test Date Status DORITA RÍOS 08/15/2023 11:33:04 Final Observation Date Value Abnormality Reference (Units) Status Bacteria identified in Specimen by Culture 08/15/2023 11:33:04 No significant growth Final Test: Culture, Urine, Quant itative
Specimen Source: Urine, Clean Catch
Specimen Type: Urine
Specimen Date: 08/15/2023 11:33 AM
Result Date: 08/16/2023 9:52 AM
Result Status: Final result
Resulting Lab: [facility]
[address]
[place] [address]

CULTURE

No significant growth

null Performing Location [facility] - [address] [facility] [address]
--- OUTSIDE RECORDS SUMMARY | 2023-11-20 06:14 | External Medical Summary | Summary of Care ---
Author Name Unknown Organization [facility] Address [address] [place] [address] Phone [phone] Care Team Providers Care Traveling Plant Operator Name Role Phone Elissa Carrero MD Primary Care Provider Reason for Visit * Reason Comments HISTORY and PHYSICAL Encounter Details Date Type Department Care Team (Late st Contact Info) Description 08/15/2023 9:30 AM EST Office Visit Urology, [place] [address] [place], [place] [phone] Rojelio Rose PA-C [address] [place], [place] [phone] Malignant neoplasm of overlapping sites of bladder [...] Time: 9:57 AM PCP: Elissa Carrero MD [address] [place] [address] C/c Pre-operative History and Physical HPI: This [...] f/c, n/v/c/d. The patient denies h/o TIA/CVA, OR, sleep apnea, DVT/PE, or DM. PAST MEDICAL [...] performed by Dean Altamirano MD at OR [facility] BLADDER INSTILLATION, ANTICARCINOGENIC N/A 07/11/2018 BLADDER INSTILLATION OF ANTICARCINOGENIC AGENT performed by Dean Altamirano MD at OR [facility] CYSTO/URETERO W/LITHOTRIPSY Left 09/06/2018 CYSTOURETHROSCOPY URETEROSCOPY WITH LITHOTRIPSY AND STENT INSERTION performed by Tawana Munoz MD atOR [facility] CYSTOSCOPY N/A 01/17/2023 CYSTOURETHROSCOPY performed by Nabeel Alvarado MD at OR [facility] CYSTOSCOPY/INSERTION OF STENT Left 11/13/2017 CYSTOURETHROSCOPY WITH INSERTION URETERAL STENT performed by Dean Altamirano MD at OR [facility] CYSTOSCOPY/INSERTION OF STENT Left 04/10/2018 CYSTOURETHROSCOPY WITH INSERTION URETERAL STENT performed by Dean Altamirano MD at OR [facility] CYSTOSCOPY/INSERTION OF STENT Left 07/11/2018 CYSTOURETHROSCOPY WITH INSERTION URETERAL STENT performed by Dean Altamirano MD at OR [facility] CYSTOSCOPY/INSERTION OF STENT Left 05/23/2022 CYSTOURETHROSCOPY WITH INSERTION URETERAL STENT performed by Nabeel Alvarado MD at OR [facility] CYSTOSCOPY/TREAT LGE BLADDER TUMOR N/A 11/13/2017 CYSTOURETHROSCOPY WITH FULGURATION LARGE BLADDER TUMOR performed by Dean Altamirano MD at OR [facility] CYSTOSCOPY/TREAT LGE BLADDER TUMOR N/A 04/10/2018 CYSTOURETHROSCOPY WITH FULGURATION LARGE BLADDER TUMOR performed by Dean Altamirano MD at OR [facility] CYSTOSCOPY/TREAT LGE BLADDER TUMOR N/A 07/11/2018 CYSTOURETHROSCOPY WITH FULGURATION LARGE BLADDER TUMOR performed by Dean Altamirano MD at OR [facility] CYSTOSCOPY/TREAT LGE BLADDER TUMOR Left 04/04/2022 CYSTOURETHROSCOPY WITH FULGURATION LARGE BLADDER TUMOR performed by Nabeel Alvarado MD at OR [facility] CYSTOURETERO W/BIOPSY Left 11/13/2017 CYSTOURETHROSCOPY URETEROSCOPY WITH BIOPSY AND OR FULGURATION LESION performed by Dean Altamirano MD at OR [facility] CYSTOURETERO W/BIOPSY Left 09/06/2018 CYSTOURETHROSCOPY URETEROSCOPY WITH BIOPSY AND OR FULGURATION LESION performed by Tawana Munoz MD at OR [facility] CYSTOURETERO W/BIOPSY Left 04/04/2022 CYSTOURETHROSCOPY URETEROSCOPY WITH BIOPSY AND OR FULGURATION LESION performed by Nabeel Alvarado MD at OR [facility] FLUORO PYELOGRAM RETROGRADE Left 11/13/2017 UROGRAHY, RETROGRADE, WITH OR WITHOUT KUB performed by Dean Altamirano MD at OR [facility] FLUORO PYELOGRAM RETROGRADE Left 04/10/2018 UROGRAHY, RETROGRADE, WITH OR WITHOUT KUB performed by Dean Altamirano MD at OR [facility] FLUORO PYELOGRAM RETROGRADE Left 07/11/2018 UROGRAHY, RETROGRADE, WITH OR WITHOUT KUB performed by Dean Altamirano MD at OR [facility] FLUORO PYELOGRAM RETROGRADE Left 09/06/2018 UROGRAHY, RETROGRADE, WITH OR WITHOUT KUB performed by Tawana Munoz MD at OR [facility] INFORMATION leg stents per pt INFORMATION Left left forearm repair was done in [place] LAPARO REMOVE K/URETER Left 05/23/2022 ROBOTIC LAPAROSCOPIC NEPHRECTOMY WITH TOTAL URETERECTOMY performed by Nabeel Alvarado MD at OR [facility] MISCELLANEOUS ORDER ([facility] ONLY) 2012 lumbar surgery . Multipel back surgeries in past REMOVAL OF KIDNEY STONE, OVER 2CM N/A 11/13/2017 PERCUTANEOUS NEPHROSTOLITHOTOMY OVER 2CM performed by Dean Altamirano MD at OR [facility] REMOVAL OF PROSTATE (TURP) N/A 11/13/2017 TRANSURETHRAL RESECTION PROSTATE ELECTROSURGICAL performed by Dean Altamirano MD at OR [facility] FAMILY HISTORY: Family History Problem Relation Age [...] procedure. Rojelio Rose PA-C Department of Urology [facility] 08/15/2023 9:57 AM documented in this encounter Plan of Treatment Upcoming Encounters Date Type Department Care Team (Latest Contact Info) Description 08/27/2023 10:15 AM EST Office Visit Hematology/Oncology [place] [address] [place] [address] Romel Perez MD [address] [place] [address] 08/29/2023 2:00 PM EST Hospital Encounter OR [facility], OPERATING ROOM [facility], [facility] [address] [place] [address] Nabeel Alvarado MD [address] [place] [address] 08/29/2023 2:00 PM EST Anesthesia Event OR [facility], OPERATING ROOM [facility], [facility] [address] [place] [facility] [place] [address] Cyril Pena CRNP [address] [place] [address] 08/29/2023 2:00 PM EST - 08/29/2023 3:18 PM EST Surgery OR [facility], OPERATING ROOM [facility], [facility] [address] [place] [address] Nabeel Alvarado MD [address] [place] [address] CYSTOURETHROSCOPY 08/31/2023 10:00 AM EST Imaging Radiology [address] [place] [address] 09/05/2023 10:15 AM EST Office Visit Hematology/Oncology [facility] [address] [place] [address] Romel Perez MD [address] [place] [address] 09/19/2023 1:00 PM EST Office Visit Urology, [place] [address], [place] [phone] Nabeel Alvarado MD [address] [place] [address] 11/23/2023 10:15 AM EST Office Visit [facility] [address] [facility] [address] [place] [address] Elissa Carrero MD 70[address] [facility] [address] [facility] [place] [address] 05/13/2024 2:00 PM EDT Office Visit Nephrology, Gianluca Munoz 200 [place] [address] Geraldo Sheehan MD [address] [facility] [place] [address] Scheduled Orders Name Type Priority Associated Diagnoses [...] Albumin/Creatinine Ratio 02[birth year]07/1963 CKD PHOS USE SMARTSET 86293 02/07/1963 Zoster Vaccines (2 of 3) 10/29/2013 09/03/2013 COVID-19 Vaccine ( season) 2023 01/09/2022, 06/28/2021, 11/10/2020, Additional history exists Influenza Vaccine (FLU shot) (#1) 2023 06/27/2022, 07/12/2021, 07/13/2020, Additional history exists GFR 01/15/2024 07/17/2023, 03/18, 12/26/2022, Additional history exists CKD HGB USE SMARTSET 03520 07/17/202407/17, 07/17/2023, 04/09/2023, Additional history exists DTaP,Tdap,and [...] Yellow Light Yellow, Yellow 08/15/2023 9:46 AM [employer] Clarity, Urine Clear Clear 08/15/2023 9:46 AM EST [employer] Glucose, Urine Negative Negative mg/dL 08/15/2023 9:46 AM EST [employer] Bilirubin, Urine Negative Negative 08/15/2023 9:46 AM EST [employer] Ketone, Urine Negative Negative mg/dL 08/15/2023 9:46 AM EST [employer] Specific [place], Urine 1.015 1.003 - 1.030 08/15/2023 9:46 AM EST [employer] Blood, Urine Negative Negative 08/15/2023 9:46 AM EST [employer] pH, Urine 5.5 5.0, 5.5, 6.0, 6.5, 7.0, 7.5 units 08/15/2023 9:46 AM EST [employer] Protein, Urine Negative Negative mg/dL 08/15/2023 9:46 AM EST [employer] Urobilinogen, Urine 0.2 0.2, 1.0 mg/dL 08/15/2023 9:46 AM [employer] Nitrite, Urine Negative Negative 08/15/2023 9:46 AM EST [facility] [employer] Esterase, Urine Negative Negative 08/15/2023 9:46 AM EST [facility] [employer] Urine 08/15/2023 9:44 AM EST 08/15/2023 9:46 AM EST Rojelio Rose PA-C LAB POINT OF CARE TE ST DOCKED DEVICE UNSOLICITED RESULTS [facility] [address] [place] [address] documented in this encounter Visit Diagnoses Diagnosis [...] the patient have Health Care Power of Paint Stockman? No Care Teams Traveling Plant Operator Relationship Specialty Start Date End Date Elissa Carrero MD [address] [id number] PCP - General Family Medicine 12/29/22 documented as of this encounter
--- OUTSIDE RECORDS SUMMARY | 2023-11-20 06:14 | External Medical Summary | Summary of Care ---
Author Name Unknown Organization [facility] Address [address] [place] [address] Phone [phone] Care Team Providers Care Production Supervisor Name Role Phone Elissa Carrero MD Primary Care Provider Reason for Visit * Reason Comments HISTORY and PHYSICAL Encounter Details Date Type Department Care Team (Late st Contact Info) Description 08/15/2023 9:30 AM EST Office Visit Urology, [facility] [address] [place], [place] [phone] Rojelio Rose PA-C [address] [place], [place] [phone] Malignant neoplasm of overlapping sites of bladder [...] Time: 9:57 AM PCP: Elissa Carrero MD [address] [place] [address] C/c Pre-operative History and Physical HPI: This [...] TIA/CVA, KS, sleep apnea, DVT/PE, or DM. PAST MEDICAL [...] performed by Dean Altamirano MD at OR [facility] BLADDER INSTILLATION, ANTICARCINOGENIC N/A 07/11/2018 BLADDER INSTILLATION OF ANTICARCINOGENIC AGENT performed by Dean Altamirano MD at OR [facility] CYSTO/URETERO W/LITHOTRIPSY Left 09/06/2018 CYSTOURETHROSCOPY URETEROSCOPY WITH LITHOTRIPSY AND STENT INSERTION performed by Tawana Munoz MD atOR [facility] CYSTOSCOPY N/A 01/17/2023 CYSTOURETHROSCOPY performed by Nabeel Alvarado MD at OR [facility] CYSTOSCOPY/INSERTION OF STENT Left 11/13/2017 CYSTOURETHROSCOPY WITH INSERTION URETERAL STENT performed by Dean Altamirano MD at OR [facility] CYSTOSCOPY/INSERTION OF STENT Left 04/10/2018 CYSTOURETHROSCOPY WITH INSERTION URETERAL STENT performed by Dean Altamirano MD at OR [facility] CYSTOSCOPY/INSERTION OF STENT Left 07/11/2018 CYSTOURETHROSCOPY WITH INSERTION URETERAL STENT performed by Dean Altamirano MD at OR [facility] CYSTOSCOPY/INSERTION OF STENT Left 05/23/2022 CYSTOURETHROSCOPY WITH INSERTION URETERAL STENT performed by Nabeel Alvarado MD at OR [facility] CYSTOSCOPY/TREAT LGE BLADDER TUMOR N/A 11/13/2017 CYSTOURETHROSCOPY WITH FULGURATION LARGE BLADDER TUMOR performed by Dean Altamirano MD at OR [facility] CYSTOSCOPY/TREAT LGE BLADDER TUMOR N/A 04/10/2018 CYSTOURETHROSCOPY WITH FULGURATION LARGE BLADDER TUMOR performed by Dean Altamirano MD at OR [facility] CYSTOSCOPY/TREAT LGE BLADDER TUMOR N/A 07/11/2018 CYSTOURETHROSCOPY WITH FULGURATION LARGE BLADDER TUMOR performed by Dean Altamirano MD at OR [facility] CYSTOSCOPY/TREAT LGE BLADDER TUMOR Left 04/04/2022 CYSTOURETHROSCOPY WITH FULGURATION LARGE BLADDER TUMOR performed by Nabeel Alvarado MD at OR [facility] CYSTOURETERO W/BIOPSY Left 11/13/2017 CYSTOURETHROSCOPY URETEROSCOPY WITH BIOPSY AND OR FULGURATION LESION performed by Dean Altamirano MD at OR [facility] CYSTOURETERO W/BIOPSY Left 09/06/2018 CYSTOURETHROSCOPY URETEROSCOPY WITH BIOPSY AND OR FULGURATION LESION performed by Tawana Munoz MD at OR [facility] CYSTOURETERO W/BIOPSY Left 04/04/2022 CYSTOURETHROSCOPY URETEROSCOPY WITH BIOPSY AND OR FULGURATION LESION performed by Nabeel Alvarado MD at OR [facility] FLUORO PYELOGRAM RETROGRADE Left 11/13/2017 UROGRAHY, RETROGRADE, WITH OR WITHOUT KUB performed by Dean Altamirano MD at OR [facility] FLUORO PYELOGRAM RETROGRADE Left 04/10/2018 UROGRAHY, RETROGRADE, WITH OR WITHOUT KUB performed by Dean Altamirano MD at OR [facility] FLUORO PYELOGRAM RETROGRADE Left 07/11/2018 UROGRAHY, RETROGRADE, WITH OR WITHOUT KUB performed by Dean Altamirano MD at OR [facility] FLUORO PYELOGRAM RETROGRADE Left 09/06/2018 UROGRAHY, RETROGRADE, WITH OR WITHOUT KUB performed by Tawana Munoz MD at OR [facility] INFORMATION leg stents per pt INFORMATION Left left forearm repair was done in [place] LAPARO REMOVE K/URETER Left 05/23/2022 ROBOTIC LAPAROSCOPIC NEPHRECTOMY WITH TOTAL URETERECTOMY performed by Nabeel Alvarado MD at OR [facility] MISCELLANEOUS ORDER ([facility] ONLY) 2012 lumbar surgery . Multipel back surgeries in past REMOVAL OF KIDNEY STONE, OVER 2CM N/A 11/13/2017 PERCUTANEOUS NEPHROSTOLITHOTOMY OVER 2CM performed by Dean Altamirano MD at OR [facility] REMOVAL OF PROSTATE (TURP) N/A 11/13/2017 TRANSURETHRAL RESECTION PROSTATE ELECTROSURGICAL performed by Dean Altamirano MD at OR [facility] FAMILY HISTORY: Family [...] procedure. Rojelio Rose PA-C Department of Urology [facility] 08/15/2023 9:57 AM documented in this encounter Plan of Treatment Upcoming Encounters Date Type Department Care Team (Latest Contact Info) Description 08/27/2023 10:15 AM EST Office Visit Hematology/Oncology [facility] Der[facility] Sanchez [address] [place] [address] Romel Perez MD [address] [place] [address] 08/29/2023 2:00 PM EST Hospital Encounter OR [facility], OPERATING ROOM [facility], [facility] [address] [place] [address] Nabeel Alvarado MD [address] [place] [address] 08/29/2023 2:00 PM EST Anesthesia Event OR [facility], OPERATING ROOM [facility], [facility] [address] [place] [facility] [address] Cyril Pena CRNP [address] [place] [address] 08/29/2023 2:00 PM EST - 08/29/2023 3:18 PM EST Surgery OR [facility], OPERATING ROOM [facility], [facility] [address] [place] [address] Nabeel Alvarado MD [address] [place] [address] CYSTOURETHROSCOPY 08/31/2023 10:00 AM EST Imaging Radiology [address] [place] [address] 09/05/2023 10:15 AM EST Office Visit Hematology/Oncology [facility] [address] [place] [address] Romel Perez MD [address] [place] [address] 09/19/2023 1:00 PM EST Office Visit Urology, [facility] [address] [place], [place] [phone] Nabeel Alvarado MD [address] [place] [address] 11/23/2023 10:15 AM EST Office Visit [facility] [address] [facility] [address] [facility] [address] [place] [phone] Elissa Carrero MD [address] [facility] [address] [place] [address] 05/13/2024 2:00 PM EDT Office Visit Nephrology, Gianluca Munoz [address] [facility] [place] [address] Geraldo Sheehan MD [address] [facility] [place] [address] Pending Results Name Type Priority Associated Diagnoses Date /Time BASIC METABOLIC PANEL Lab Routine Malignant neoplasm of overlapping sites of bladder (HCC) Pre-op testing 08/15/2023 11:01 AM EST CBC WITH WBC DIFFERENTIAL Lab Routine Malignant neoplasm of overlapping sites of bladder (HCC) Pre-op testing 08/15/2023 11:01 AM EST CBC Lab Routine Malignant neoplasm of overlapping sites of bladder (HCC) Pre-op testing 08/15/2023 11:01 AM EST DIFFERENTIAL, AUTOMATED Lab Routine Malignant neoplasm of overlapping sites of bladder (HCC) Pre-op testing 08/15/2023 11:01 AM EST Scheduled Orders Name Type Priority Associated Diagnoses Orde r Schedule EKG EKG Routine Malignant neoplasm of overlapping sites of bladder (HCC) Pre-op testing Ordered: 08/15/2023 CULTURE, URINE, QUANTITATIVE Lab Routine Malignant neoplasm of overlapping sites of bladder (HCC) Pre-op testing Dysuria Ordered: 08/15/2023 Scheduled Procedures Name Priority Associated Diagnoses Date/Ti me CYSTOURETHROSCOPY Malignant neoplasm of urinary bladder, unspecified site (HCC) 08/29/2023 2:00 PM EST Health Maintenance Due Date Last Done Comments Depression Screening 1957 Albumin/Creatinine Ratio 02/07/1964 CKD PHOS USE SMARTSET 46322 02[birth year]07/1963 Zoster Vaccines (2 of 3) 10/29/2013 09/03/2013 COVID-19 Vaccine ( season) 2023 01/09/2022, 06/28/2021, 11/10/2020, Additional history exists Influenza Vaccine (FLU shot) (#1) 2023 06/27/2022, 07/12/2021, 07/13/2020, Additional history exists GFR 01/15/2024 07/17/2023, 07/12/2022, 12/26/2022, Additional history exists CKD HGB USE SMARTSET 02779 07/17/202407/17, 07/17/2023, 04/09/2023, Additional history exists DTaP,Tdap,and [...] Associated Diagnosis Comments URINALYSIS, POINT OF CARE [facility] 08/15/2023 9:44 AM EST documented in this encounter Results * URINALYSIS, POINT OF CARE (08/15/2023 9:44 AM EST) Color, Urine Yellow Light Yellow, Yellow 08/15/2023 9:46 AM EST [facility] Clarity, Urine Clear Clear 08/15/2023 9:46 AM EST [facility] Glucose, Urine Negative Negative mg/dL 08/15/2023 9:46 AM EST [facility] Bilirubin, Urine Negative Negative 08/15/2023 9:46 AM EST [facility] Ketone, Urine Negative Negative mg/dL 08/15/2023 9:46 AM EST [employer] Specific [place], Urine 1.015 1.003 - 1.030 08/15/2023 9:46 AM EST [employer] Blood, Urine Negative Negative 08/15/2023 9:46 AM EST [employer] pH, Urine 5.5 5.0, 5.5, 6.0, 6.5, 7.0, 7.5 units 08/15/2023 9:46 AM EST [facility] Protein, Urine Negative Negative mg/dL 08/15/2023 9:46 AM EST [facility] TIME PLUS Q Urobilinogen, Urine 0.2 0.2, 1.0 mg/dL 08/15/2023 9:46 AM EST [facility] Nitrite, Urine Negative Negative 08/15/2023 9:46 AM EST [facility] Esterase, Urine Negative Negative 08/15/2023 9:46 AM EST [facility] Urine 08/15/2023 9:44 AM EST 08/15/2023 9:46 AM EST Rojelio Rose PA-C LAB POINT OF CARE TE ST DOCKED DEVICE UNSOLICITED RESULTS [facility] [address] [place] [address] documented in this encounter Visit Diagnoses Diagnosis [...] the patient have Health Care Power of Numerical Control Programmer? No Care Teams Production Supervisor Relationship Specialty Start Date End Date Elissa Carrero MD [address] [address] PCP - General Family Medicine 12/29/22 documented as of this encounter
--- OUTSIDE RECORDS SUMMARY | 2023-11-20 06:14 | External Medical Summary ---
Author Name Unknown Address Unknown Organization : Laboratory Report Ordering Provider Test Date Status DORITA RÍOS 08/15/2023 09:44:00 Final Observation Date Value Abnormality Reference (Units ) Status Color of Urine by Auto 08/15/2023 09:44:00 Yellow Light Yellow, Yellow Final Clarity, Urine 08/15/2023 09:44:00 Clear Clear Final Glucose [Mass/volume] in Urine by Automated test strip 08/15/2023 09:44:00 Negative Negative (mg/dL) Final Bilirubin.total [Presence] in Urine by Automated test strip 08/15/2023 09:44:00 Negative Negative Final Ketones [Mass/volume] in Urine by Automated test strip 08/15/2023 09:44:00 Negative Negative (mg/dL) Final Specific gravity, Urine 08/15/2023 09:44:00 1.015 1.003-1.030 Final Hemoglobin [Presence] in Urine by Automated test strip 08/15/2023 09:44:00 Negative Negative Final pH, Urine 08/15/2023 09:44:00 5.5 5.0, 5.5, 6.0, 6.5, 7.0, 7.5 (units) Final Protein [Mass/volume] in Urine by Automated test strip 08/15/2023 09:44:00 Negative Negative (mg/dL) Final Urobilinogen, Urine 08/15/2023 09:44:00 0.2 0.2, 1.0 (mg/dL) Final Nitrite [Presence] in Urine by Automated test strip 08/15/2023 09:44:00 Negative Negative Final Leukocyte esterase [Presence] in Urine by Automated test strip 08/15/2023 09:44:00 Negative Negative Final Performing Location
--- OUTSIDE RECORDS SUMMARY | 2023-11-20 06:14 | External Medical Summary | Summary of Care ---
Author Name Unknown Organization [facility] Address [address] [place] [facility] [place] [place] [address] Phone [phone] Care Team Providers Care Wait Staff Name Role Phone Elissa Carrero MD Primary Care Provider Reason for Visit * Reason Comments Follow Up F/U Encounter Details Date Type Department Care Team (Late st Contact Info) Description 07/25/2023 4:00 PM EST Office Visit [facility] [place] [address] [place] [address] Romel Perez MD [address] [place] [address] Cancer of left renal pelvis (HCC)* Allergies Active Allergy Reactions Criticality Noted Date Comments Lisinopril 07/04/2019 Other reaction(s): Angioedema Piroxicam 10/25/2022 Other reaction(s): muscle spasms documented as of this encounter (statuses as of 07/25/2023) Medications Medication Sig Dispensed Refills Start Date [...] as of this encounter (statuses as of 07/25/2023) Active Problems Problem Noted Date Diagnosed Date [...] as of this encounter (statuses as of 07/25/2023) Resolved Problems Problem Noted Date Diagnosed Date Resolved Date Stage 3a chronic kidney disease 10/27/2022 01/24/2023 Overview: Per CKD protocol documented as of this encounter (statuses as of 07/25/2023) Immunizations Name Administration Dates Next Due COVID-19 [...] Sign Reading Time Taken Comments Blood Pressure 149/84 07/25/2023 3:46 PM EST Pulse 59 07/25/2023 3:46 PM EST Temperature 35.9 C (96.7 F) 07/25/2023 3:46 PM ES T Respiratory Rate 16 07/25/2023 3:46 PM EST Oxygen Saturation 95% 07/25/2023 3:46 PM EST Inhaled Oxygen Concentration - - Weight 75 kg (165 lb 4.8 oz) 07/25/2023 3:46 PM EST Height - - Body Mass Index 27.94 05/24/2023 11:40 AM EDT documented in this encounter Functional Status Functional [...] or making decisions? (5 years old or older No 05/23/2022 documented as of this encounter Progress Notes * Romel Perez MD - 07/25/2023 4:10 PM EST Outpatient Consult Note Data Source: [facility]. Data Source: Patient, Epic record. 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 Denies any headache, dizziness, blurred vision, chest pain, shortness breath palpitation abdominal or distention, nausea, vomiting, fever, night sweats, weight loss, hematuria. LABS/IMAGING: Results for orders placed or performed during the hospital encounter of 07/20/23 GLUCOSE METER, POINT OF CARE Result Value Ref Range Glucose Meter 92 70 - 120 mg/dL Follow-up PET scan was done on 07/20/2023 which shows new nodularity in the left nephrectomy bed measuring 1.2 x 0.9 cm with the SUV of 1.9. There were also 2 adjacent newly hypermetabolic distal para-aortic/left common iliac lymph nodes increase in size from the prior examination with SUV of 4.7. REVIEW OF SYSTEMS: General: No Fever, chills, [...] bleeding Genitourinary: Denies Hematuria or dysuria Musculoskeletal: No bone pain Skin: No skin rash or lesions noted Neurologic: No numbness, weakness, neuropathic pain or change in cognitive function Psychiatric: No vegetative signs of depression Endocrine: [...] appearing patient in no acute distress BP 149/84 (BP Site: Left Arm, BP Position: Sitting, BP Cuff Size: Regular) | Pulse 59 | Temp 35.9 C (96.7 F) (Tympanic) | Resp 16 | Wt 75 kg (165 lb 4.8 oz) | SpO2 95% | BMI 27.94 kg/m | BSA 1.85 m Vitals reviewed. [...] Extremeties: Good pulses bilaterally, no peripheral edema. Skin: Normal skin tone with no rash, petechiae, ecchymosis noted. Musculoskeletal: No pain on palpation over bony prominence, no edema, no evidence of gout, no jointor bony deformity ASSESSMENT: 78-year-old male with past medical history [...] Received last dose of chemotherapy on 09/28/2022. Clinically he is doing well and physical examination is unremarkable. All his blood tests are in acceptable range. He is a follow-up PET scan done which unfortunately revealed new nodularity in the left nephrectomy bed with hypermetabolic para-aortic/left common iliac lymph nodes concerning for meta stasis. Discussed with the patient about diagnosis reviewed all the available blood tests and PET scan finding with him. I will get the opinion of Dr. Shameka Harry about the PET scan finding and his recommendation. Patient has follow-up appointment with him on 08/15/2023. PLAN: As above. He will return to clinic for follow-up in 4 weeks. The patient voiced understanding of all of [...] this encounter Nursing Notes * Libia Jean Baptiste LPN - 07/25/2023 3:50 PM EST Patient identifed by name and birthdate Do you have any concerns about pain management for today's visit? No Living Will or Advance Directive for Health Care as noted on the problem list. [facility] is a way you can talk to your provider on line through e-mail. Would you like to sign up? I can activate it for you? NO Filed Vitals: 07/25/23 1546 BP: 149/84 Pulse: 59 Resp: 16 Temp: 35.9 C (96.7 F) TempSrc: Tympanic SpO2: 95% Weight: 75 kg (165 lb 4.8 oz) Patient was instructed to not get [...] 2:45 PM EST Office Visit Family Medicine, [facility] [address] [facility] [address] [place] [phone] Elissa Carrero MD [address] [facility] [address] [place] [address] 08/15/2023 9:30 AM EST Office Visit Urology, [place] [address] [place] [address] Rojelio Rose PA-C [address] [place] [address] 08/15/2023 10:30 AM EST Pre-Admission Testing Pre Surgery [place], [place] [address] [place] [address] [facility] [address] [place] [address] 08/27/2023 10:15 AM EST Office Visit Hematology/Oncology [facility] Tammy [place] [address] [place] [address] Romel Perez MD [address] [place] [address] 08/29/2023 2:00 PM EST Hospital Encounter [place] [facility] [place] [facility] [place] [facility] [address] [place] [address] Nabeel Alvarado MD [address] [place] [address] 08/29/2023 2:00 PM EST - 08/29/2023 3:18 PM EST Surgery [place] [facility] [place] [facility] [facility] [address] [place] [address] Nabeel Alvarado MD [address] [place] [address] CYSTOURETHROSCOPY 09/19/2023 1:00 PM EST Office Visit Urology, [place] [address] [place] [address] Nabeel Alvarado MD [address] [place] [address] 11/23/2023 10:15 AM EST Office Visit [facility] [address] [place] [phone] Elissa Carrero MD [address] [facility] [address] [place] [address] 05/13/2024 2:00 PM EDT Office Visit Nephrology, Gianluca Munoz [address] [place] [address] Geraldo Sheehan MD [address] [place] [address] Scheduled Procedures Name Priority Associated Diagnoses Date/Ti me CYSTOURETHROSCOPY Malignant neoplasm of urinary bladder, unspecified site (HCC) 08/29/2023 2:00 PM EST Health Maintenance Due Date Last Done Comments Depression Screening 1957 Albumin/Creatinine Ratio 02/07/1964 CKD PHOS USE SMARTSET 02202 02/07/1963 Zoster Vaccines (2 of 3) 10/29/2013 09/03/2013 COVID-19 Vaccine ( season) 2023 01/09/2022, 06/28/2021, 11/10/2020, Additional history exists Influenza Vaccine (FLU shot) (#1) 2023 06/27/2022, 07/12/2021, 07/13/2020, Additional history exists GFR 01/15/2024 07/17/2023, 03/18, 12/26/2022, Additional history exists CKD HGB USE SMARTSET 23601 07/17/202407/17, 07/17/2023, 04/09/2023, Additional history exists DTaP,Tdap,and [...] the patient have Health Care Power of Percussion Welding Machine Operator? No Care Teams Wait Staff Relationship Specialty Start Date End Date Elissa Carrero MD [address] [place] [address] PCP - General Family Medicine 12/29/22 documented as of this encounter"
--- OUTSIDE RECORDS SUMMARY | 2023-11-20 06:14 | External Medical Summary ---
Author Name Unknown Address Unknown Organization K01:[facility]ATORY [facility] - [address] [place] [address] Laboratory Report Ordering Provider Test Date Status PENELOPE WALLACE 08/01/2023 12:45:49 Final Observation Date Value Abnormality Reference (Units ) Status COMMENT 08/01/2023 12:45:49 Rcvd request,slides to [place](SM out)08/01/23 Final COMMENT 08/01/2023 12:45:49 Per [place], there is no tissue block(smear only)test not done 08/01/23 Final COMMENT 08/01/2023 12:45:49 Testing can't be performed, insufficient tissue Final Performing Location [facility] - [address] [place] [address]
--- OUTSIDE RECORDS SUMMARY | 2023-11-20 06:15 | External Medical Summary | Summary of Care ---
Author Name Unknown Organization [facility] Address [address] [place] [address] Phone [phone] Care Team Providers Care Community Health Outreach Worker Name Role Phone Elissa Carrero MD Primary Care Provider Reason for Visit * Precert (Within 10 days (routine)) - Authorized Specialty Diagnoses / Procedures Referred By Carolina t Referred To Contact Radiology Diagnoses Cancer of left renal pelvis (HCC) Malignant neoplasm of overlapping sites of bladder (HCC) Procedures PET CT SKULL BASE TO MID-THIGH Dipti Guaman CRNP [address] [place] [address] Referral ID Status Reason Start Date Expiration Date V isits Requested Visits Authorized [id number] Authorized 07/25/[phone] Encounter Details Date Type Department Care Team (Latest Contact Info) Description 07/20/2023 9:23 AM EDT - 07/20/2023 11:59 PM EDT Hospital Encounter Radiology, [facility] [address] [place], [place] [id number] Arrived Discharge Disposition: Home - Self Care Allergies Active Allergy Reactions Criticality Noted Date Comments Lisinopril 07/04/2019 Other reaction(s): Angioedema Piroxicam 10/25/2022 Other reaction(s): muscle spasms documented as of this encounter (statuses as of 07/21/2023) Medications Medication Sig Dispensed Refills Start Date [...] as of this encounter (statuses as of 07/21/2023) Active Problems Problem Noted Date Diagnosed Date [...] as of this encounter (statuses as of 07/21/2023) Resolved Problems Problem Noted Date Diagnosed Date Resolved Date Stage 3a chronic kidney disease 10/27/2022 01/24/2023 Overview: Per CKD protocol documented as of this encounter (statuses as of 07/21/2023) Immunizations Name Administration Dates Next Due COVID-19 [...] Care Team (Late st Contact Info) Description 07/23/2023 2:40 PM EST Office Visit Nephrology, [facility] [address] [place] [address] Geraldo Sheehan MD 200 [facility] [place] [address] 07/25/2023 4:00 PM EST Office Visit Hematology/Oncology [facility] [place] [address] [place] [address] Romel Perez MD [facility] [place] [address] 07/31/2023 2:45 PM EST Office Visit Family Medicine, [facility] [place] [address] [facility] [address] [phone] Elissa Carrero MD 70[address] [facility] [address] [place] [address] 08/15/2023 9:30 AM EST Office Visit Urology, [place] [address] [place] [address] Rojelio Rose PA-C [address] [place] [address] 08/15/2023 10:30 AM EST Pre-Admission Testing Pre Surgery Center, [place] [address] [place] [address] [facility] [address] [place] [address] 08/29/2023 2:00 PM EST Hospital Encounter [place] [facility], OPERATING ROOM [facility], [facility] [address] [place] [address] Nabeel Alvarado MD [address] [place] [address] 08/29/2023 2:00 PM EST - 08/29/2023 3:18 PM EST Surgery OR [facility], OPERATING ROOM [facility], [facility] [address] [place] [address] Nabeel Alvarado MD [address] [place] [address] CYSTOURETHROSCOPY 09/19/2023 1:00 PM EST Office Visit Urology, [place] [address] [place] [address] Nabeel Alvarado MD [address] [place] [address] 11/23/2023 10:15 AM EST Office Visit Family Medicine, [facility] [place] [address] [facility] [address] [place] [phone] Elissa Carrero MD 70[address] [facility] [address] [place] [address] Scheduled Procedures Name Priority Associated Diagnoses Date/Ti me CYSTOURETHROSCOPY Malignant neoplasm of urinary bladder, unspecified site (HCC) 08/29/2023 2:00 PM EST Health Maintenance Due Date Last Done Comments Depression Screening 1957 Albumin/Creatinine Ratio 02/07/1964 CKD PHOS USE SMARTSET 99450 02/07/1964 Zoster Vaccines (2 of 3) 10/29/2013 09/03/2013 COVID-19 Vaccine (5 - season) 2023 01/09/2022, 06/28/2021, 11/10/2020, Additional history exists Influenza Vaccine (FLU shot) (#1) 2023 06/27/2022, 07/12/2021, 07/13/2020, Additional history exists GFR 01/15/2024 07/17/2023, 03/18, 12/26/2022, Additional history exists CKD HGB USE SMARTSET 22153 07/17/202407/17, 07/17/2023, 04/09/2023, Additional history exists DTaP,Tdap,and [...] Procedure Name Priority Date/Time Associated Diagnosis Comments GLUCOSE METER, POINT OF CARE CAIO 07/20/2023 9:47 AM EDT documented in this encounter Results * GLUCOSE METER, POINT OF CARE (07/20/2023 9:47 AM EDT) Glucose Meter 92 70 - 120 mg/dL 07/20/2023 1:39 PM EDT [facility] Blood Whole blood specimen / Unknown 07/20/2023 9:47 AM EDT 07/20/2023 1:39 PM EDT No Physician Data Unknown LAB POINT OF C ARE TEST DOCKED DEVICE UNSOLICITED RESULTS [facility] [address] [place] [place] [address] documented in this encounter Administered Medications Inactive Administered Medications - up to 3 most recent administrations Medication Order MAR Action Action Date Dose Rate Site fludeoxyglucose f-18 (Fdg) inj 12.3 millicurie 12.3 millicurie, Intravenous, ONCE, On Sun07/20/23 at 1006, For 1 dose, Radiology Medication Routing (Non-IR) Given 07/20/2023 9:55 AM EDT 12.3 millicuries Antecubital Left documented in this encounter Advance Directives Latest [...] the patient have Health Care Power of Breaker Table Worker? No Care Teams Community Health Outreach Worker Relationship Specialty Start Date End Date Elissa Carrero MD 70[address] [facility] [address] [phone] PCP - General Family Medicine 12/29/22 documented as of this encounter
--- OUTSIDE RECORDS SUMMARY | 2023-11-20 06:15 | External Medical Summary | Summary of Care ---
Author Name Unknown Organization [facility] Address [address] [place] [facility] [place] [address] Phone [phone] Care Team Providers Care Commercial Lines Account Manager Name Role Phone Elissa Carrero MD Primary Care Provider Reason for Visit * Reason Comments Chronic Kidney Disease (CKD) Encounter Details Date Type Department Care Team (Late st Contact Info) Description 07/23/2023 2:40 PM EST Office Visit [facility] [address] [place] [address] [address] Geraldo Sheehan MD 200 [facility] [address] [place] [address] Stage 3b chronic kidney disease (HCC)*; Cancer of left renal pelvis (HCC); S/p nephrectomy; HTN, goal below 140/90 Allergies Active Allergy Reactions Criticality Noted Date Comments Lisinopril 07/04/2019 Other reaction(s): Angioedema Piroxicam 10/25/2022 Other reaction(s): muscle spasms documented as of this encounter (statuses as of 07/23/2023) Medications Medication Sig Dispensed Refills Start Date [...] as of this encounter (statuses as of 07/23/2023) Active Problems Problem Noted Date Diagnosed Date [...] as of this encounter (statuses as of 07/23/2023) Resolved Problems Problem Noted Date Diagnosed Date Resolved Date Stage 3a chronic kidney disease 10/27/2022 01/24/2023 Overview: Per CKD protocol documented as of this encounter (statuses as of 07/23/2023) Immunizations Name Administration Dates Next Due COVID-19 [...] Sign Reading Time Taken Comments Blood Pressure 122/55 07/23/2023 2:40 PM EST Pulse 62 07/23/2023 2:40 PM EST Temperature 36.1 C (96.9 F) 07/23/2023 2:40 PM ES T Respiratory Rate - - Oxygen Saturation - - Inhaled Oxygen Concentration - - Weight 75.5 kg (166 lb 6.4 oz) 07/23/2023 2:40 P M EST Height - - Body Mass Index 28.12 05/24/2023 11:40 AM EDT documented in this [...] as of this encounter Progress Notes * Geraldo Sheehan MD - 07/23/2023 2:51 PM EST . Chief Complaint Patient presents with Chronic Kidney Disease (CKD) HPI: 78-year-old male with hypertension hyperlipidemia GERD BPH prior bladder cancer and chronic back pain was found to have a cancer in the left kidney. He had a creatinine of 1.4 GFR of 52 before he had the left nephrectomy May 2022. Biopsy consistent with high-grade urothelial carcinoma. Since then creatinine GFR has been worse but steady with the most recent blood work showing a creatinine of 1.9 GFR of 37 as of December 26, 2022. After the nephrectomy in May he has already finished a chemotherapy course of carboplatin without any major change in his kidney function. No diabetes no significant heart disease childhood kidney disease or family history of kidney disease. At this time he feels fine but very worried about his single kidney status. Since last visit December 2022----no new health issues. Is still closely followed by Urology and is supposed to have cystoscopy in August. He just had a PET scan done but results pending at this time. Denies any acute symptoms. Appetite is good weight is stable NSAID No Renal Stone No Herbal Medication No Urinary Complaints Yes, mild BPH symptoms Current Outpatient Medications Medication Sig Dispense Refill [...] No current facility-administered medications for this visit. Past Medical History: Diagnosis Date Bladder cancer (HCC) 04/18/2017 Former smoker 3ppd for 33 years GERD (gastroesophageal reflux disease) Hyperlipidemia Hypertension Vascular disease Past Surgical History: Procedure Laterality Date APPENDECTOMY W/OTHER PROCEDURE BLADDER INSTILLATION, ANTICARCINOGENIC N/A 04/10/2018 BLADDER INSTILLATION OF ANTICARCINOGENIC AGENT performed by Dean Altamirano MD at [place] [facility] BLADDER INSTILLATION, ANTICARCINOGENIC N/A 07/11/2018 BLADDER INSTILLATION OF ANTICARCINOGENIC AGENT performed by Dean Altamirano MD at OR [facility] CYSTO/URETERO W/LITHOTRIPSY Left 09/06/2018 CYSTOURETHROSCOPY URETEROSCOPY WITH LITHOTRIPSY AND STENT INSERTION performed by Tawana Munoz MD at[facility] CYSTOSCOPY N/A 01/17/2023 CYSTOURETHROSCOPY performed by Nabeel Alvarado MD at OR [facility] CYSTOSCOPY/INSERTION OF STENT Left 11/13/2017 CYSTOURETHROSCOPY WITH INSERTION URETERAL STENT performed by Dean Altamirano MD at OR [facility] CYSTOSCOPY/INSERTION OF STENT Left 04/10/2018 CYSTOURETHROSCOPY WITH INSERTION URETERAL STENT performed by Dean Altamirano MD at OR [facility] CYSTOSCOPY/INSERTION OF STENT Left 07/11/2018 CYSTOURETHROSCOPY WITH INSERTION URETERAL STENT performed by Dean Altamirano MD at OR [facility] CYSTOSCOPY/INSERTION OF STENT Left 05/23/2022 CYSTOURETHROSCOPY WITH INSERTION URETERAL STENT performed by Nabeel Alvarado MD at OR [facility] CYSTOSCOPY/TREAT LGE BLADDER TUMOR N/A 11/13/2017 CYSTOURETHROSCOPY WITH FULGURATION LARGE BLADDER TUMOR performed by Dean Altamirano MD at OR [facility] CYSTOSCOPY/TREAT LGE BLADDER TUMOR N/A 04/10/2018 CYSTOURETHROSCOPY WITH FULGURATION LARGE BLADDER TUMOR performed by Dean Altamirano MD at OR [facility] CYSTOSCOPY/TREAT LGE BLADDER TUMOR N/A 07/11/2018 CYSTOURETHROSCOPY WITH FULGURATION LARGE BLADDER TUMOR performed by Dean Altamirano MD at OR [facility] CYSTOSCOPY/TREAT LGE BLADDER TUMOR Left 04/04/2022 CYSTOURETHROSCOPY WITH FULGURATION LARGE BLADDER TUMOR performed by Nabeel Alvarado MD at OR [facility] CYSTOURETERO W/BIOPSY Left 11/13/2017 CYSTOURETHROSCOPY URETEROSCOPY WITH BIOPSY AND OR FULGURATION LESION performed by Dean Altamirano MD at OR [facility] CYSTOURETERO W/BIOPSY Left 09/06/2018 CYSTOURETHROSCOPY URETEROSCOPY WITH BIOPSY AND OR FULGURATION LESION performed by Tawana Munoz MD at OR [facility] CYSTOURETERO W/BIOPSY Left 04/04/2022 CYSTOURETHROSCOPY URETEROSCOPY WITH BIOPSY AND OR FULGURATION LESION performed by Nabeel Alvarado MD at OR [facility] FLUORO PYELOGRAM RETROGRADE Left 11/13/2017 UROGRAHY, RETROGRADE, WITH OR WITHOUT KUB performed by Dean Altamirano MD at OR [facility] FLUORO PYELOGRAM RETROGRADE Left 04/10/2018 UROGRAHY, RETROGRADE, WITH OR WITHOUT KUB performed by Dean Altamirano MD at OR [facility] FLUORO PYELOGRAM RETROGRADE Left 07/11/2018 UROGRAHY, RETROGRADE, WITH OR WITHOUT KUB performed by Dean Altamirano MD at OR [facility] FLUORO PYELOGRAM RETROGRADE Left 09/06/2018 UROGRAHY, RETROGRADE, WITH OR WITHOUT KUB performed by Tawana Munoz MD at OR [facility] INFORMATION leg stents per pt INFORMATION Left left forearm repair was done in [place] LAPARO REMOVE K/URETER Left 05/23/2022 ROBOTIC LAPAROSCOPIC NEPHRECTOMY WITH TOTAL URETERECTOMY performed by Nabeel Alvarado MD at OR [facility] MISCELLANEOUS ORDER ([facility] ONLY) 2011 lumbar surgery . Multipel back surgeries in past REMOVAL OF KIDNEY STONE, OVER 2CM N/A 11/13/2017 PERCUTANEOUS NEPHROSTOLITHOTOMY OVER 2CM performed by Dean Altamirano MD at OR [facility] REMOVAL OF PROSTATE (TURP) N/A 11/13/2017 TRANSURETHRAL RESECTION PROSTATE ELECTROSURGICAL performed by Dean Altamirano MD at OR [facility] Review of patient's allergies indicates: Allergen Reactions Lisinopril Other reaction(s): Angioedema Piroxicam Other reaction(s): muscle spasms Family History Problem Relation Age of Onset Other (stomach aneurysm) Mother Heart attack Brother Other (stomach aneurysm) Aunt (Unspecified) Paternal Family History of Renal Disease No Social History Socioeconomic History Marital status: Spouse [...] on file Housing Stability: Not on file Ambulation: Cane Review of Systems: Twelve systems reviewed and negative OBJECTIVE: PHYSICAL EXAM: BP 122/55 (BP Site: Right Arm, BP Position: Sitting, BP Cuff Size: Regular) | Pulse 62 | Temp 36.1 C (96.9 F) (Tympanic) | Wt 75.5 kg (166 lb 6.4 oz) | BMI 28.12 kg/m | BSA 1.85 m General: alert, healthy and no distress Head: No masses, lesions, tenderness or abnormalities Neck: supple, no JVD Heart: regular rate & rhythm, no murmur and no gallops Lungs: normal respiratory rate and rhythm, lungs clear to auscultation Abdomen: abdomen soft and non-tender Back: no costovertebral angle tenderness Extremities: no edema Neuro Exam: alert & oriented x 3 with fluent speech, no focal motor/sensory deficits Skin: skin color, texture, turgor are normal, no rashes or significant lesions BP Readings from Last 4 Encounters: 07/23/23 122/55 05/24/23 133/72 04/24/23 149/87 01/17/23 148/79 Wt Readings from Last 4 Encounters: 07/23/23 75.5 kg (166 lb 6.4 oz) 05/24/23 74.1 kg (163 lb 6.4 oz) 04/24/23 73.4 kg (161 lb 14.4 oz) 01/17/23 74.8 kg (165 lb) Estimated body mass index is 28.12 kg/m as calculated from the following: Height as of 05/24/23: 1.638 m (5' 4.5"). Weight as of this encounter: 75.5 kg (166 lb 6.4 oz). Latest Reference Range & Units 05/23/22 18:54 05/24/22 06:07 05/25/22 06:33 Sodium 135 - 146 mmol/L 139 141 138 Potassium 3.5 - 5.1 mmol/L 3.4 (L) 4.0 3.9 Chloride 98 - 107 mmol/L 101 103 103 CO2 22 - 32 mmol/L 25 28 25 BUN 6 - 20 mg/dL 22 (H) 22 (H) 19 Creatinine 0.6 - 1.2 mg/dL 1.4 (H) 1.7 (H) 2.0 (H) Estimated Glomerular Filtration Rate >=60 mL/min 52 (L) 41 (L) 35 (L) Anion Gap 7 - 15 mmol/L 13 10 10 Glucose 70 - 120 mg/dL 209 (H) 134 (H) 103 Calcium 8.4 - 10.2 mg/dL 8.7 8.3 (L) 8.0 (L) Latest Reference Range & Units 09/27/22 10:47 12/26/22 10:27 Sodium 135 - 146 mmol/L 138 140 Potassium 3.5 - 5.1 mmol/L 4.4 4.4 Chloride 98 - 107 mmol/L 102 105 CO2 22 - 32 mmol/L 24 27 BUN 6 - 20 mg/dL 28 (H) 29 (H) Creatinine 0.6 - 1.2 mg/dL 2.0 (H) 1.9 (H) Estimated Glomerular Filtration Rate >=60 mL/min 34 (L) 37 (L) Anion Gap 7 - 15 mmol/L 12 8 Glucose 70 - 120 mg/dL 122 (H) 104 Calcium 8.4 - 10.2 mg/dL 9.4 9.7 ASSESSMENT: Stage 3b chronic kidney disease (HCC) (Primary) Chronic kidney disease stage IIIB secondary to reduced nephron mass as he is now single kidney status. Prior to nephrectomy at a creatinine of 1.4 giving a GFR in 50's. However after the nephrectomy GFRdropped to the 30s and has remained stable since then with the most recent GFR of 37 on December 26, 2022. I explained to him that at this age nobody really has the same GFR after 1 kidney is removed. Explain the inevitable drop in the GFR given the single kidney status after nephrectomy. His kidney has also handled the carboplatin chemotherapy fairly well without any meaningful change in his GFR Normal exam without evidence of fluid overload No symptoms. As long as he does not have any obstructive uropathy with his bladder cancer his renal prognosis isstill good. He does not have diabetes uncontrolled hypertension or vascular disease. 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 Explain to the patient the drop in his GFR from the 50s to 30s now. But since then has been stable HTN, goal below 140/90 Blood pressure is totally at goal without any medication at this time. Advised to continue with a low-salt diet. documented in this encounter Nursing Notes * Lillie Bryant LPN - 07/23/2023 2:32 PM EST Return patient- has back pain. Unsure what this is from. documented in this encounter Plan of Treatment Upcoming Encounters Date Type Department Care Team (Late st Contact Info) Description 07/25/2023 4:00 PM EST Office Visit Hematology/Oncology [facility] [place] [address] [facility] [place] [address] Romel Perez MD 200 [facility] [place] [place] [address] 07/31/2023 2:45 PM EST Office Visit Family Medicine, [facility] [place] [address] [facility] [address] [place] [phone] Elissa Carrero MD 70[address] [facility] [address] [place] [address] 08/15/2023 9:30 AM EST Office Visit Urology, [place] [address] [facility] [place] [address] Rojelio Rose PA-C [address] [place] [facility] [place] [address] 08/15/2023 10:30 AM EST Pre-Admission Testing Pre Surgery [place], [place] [address] [address] [facility]ola Kirk [address] [facility] [address] 08/29/2023 2:00 PM EST Hospital Encounter [facility], [facility] [address] [address] Nabeel Alvarado MD [address] [place] [address] 08/29/2023 2:00 PM EST - 08/29/2023 3:18 PM EST Surgery OR [facility] OPERATING ROOM [facility] [place] [address] [place] [address] Nabeel Alvarado MD [address] [place] [address] CYSTOURETHROSCOPY 09/19/2023 1:00 PM EST Office Visit Urology, [place] [address] [place] [address] Nabeel Alvarado MD [address] [place] [address] 11/23/2023 10:15 AM EST Office Visit Family Medicine, [facility] [place] [address] [facility] [address] [place] [address] Elissa Carrero MD [address] [facility] [address] [place] [address] 05/13/2024 2:00 PM EDT Office Visit Nephrology, [facility] 200 [facility] [place] [address] Geraldo Sheehan MD 200 [facility] [place] [place] [address] Scheduled Procedures Name Priority Associated Diagnoses Date/Ti me CYSTOURETHROSCOPY Malignant neoplasm of urinary bladder, unspecified site (HCC) 08/29/2023 2:00 PM EST Health Maintenance Due Date Last Done Comments Depression Screening 1957 Albumin/Creatinine Ratio 02/07/1964 CKD PHOS USE SMARTSET 60948 02/07/1963 Zoster Vaccines (2 of 3) 10/29/2013 09/03/2013 COVID-19 Vaccine ( season) 2023 01/09/2022, 06/28/2021, 11/10/2020, Additional history exists Influenza Vaccine (FLU shot) (#1) 2023 06/27/2022, 07/12/2021, 07/13/2020, Additional history exists GFR 01/15/2024 07/17/2023, 03/18, 12/26/2022, Additional history exists CKD HGB USE SMARTSET 71671 07/17/202407/17, 07/17/2023, 04/09/2023, Additional history exists DTaP,Tdap,and [...] as of this encounter Visit Diagnoses Diagnosis Stage 3b chronic kidney disease (HCC)- Primary 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 No Care Teams Commercial Lines Account Manager Relationship Specialty Start Date End Date Elissa Carrero MD [address] [address] PCP - General Family Medicine 12/29/22 documented as of this encounter
--- OUTSIDE RECORDS SUMMARY | 2023-11-20 06:15 | External Medical Summary | Summary of Care ---
Author Name Unknown Organization [facility] Address [facility] [place] [address] Care Team Providers Care Carton Forming Machine Adjuster Name Role Phone Elissa Carrero MD Primary Care Provider Reason for Visit * Reason Onset Date Comments Medication Refill 06/22/2023 Encounter Details Date Type Department Care Team Description 06/22/2023 [facility] [address] [place] [phone] Elissa Carrero MD 7095 [facility] [address] [place] [address] Allergies Active Allergy Reactions Severity Noted Date Comments Lisinopril 07/04/2019 Other reaction(s): Angioedema Piroxicam 10/25/2022 Other reaction(s): muscle spasms documented as of this encounter (statuses as of 06/22/2023) Medications Medication Sig Dispensed Refills Start Date [...] as of this encounter (statuses as of 06/22/2023) Active Problems Problem Noted Date Chronic kidney disease, stage 3b 023 Overview: Per CKD protocol 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 Impaired fasting glucose 11/21/2022 Allergic rhinitis 10/27/2022 Fatigue 10/27/2022 LPRD (laryngopharyngeal reflux disease) 10/27/2022 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 Chronic back pain 10/27/2022 Other specified anemias 10/27/2022 Encounter for antineoplastic chemotherap y 06/29/2022 Cancer of left renal pelvis 05/23/2022 Malignant neoplasm of overlapping sites of bladder 05/12/2022 Bladder cancer 04/18/2017 GERD (gastroesophageal reflux disease) 0 11/15/2016 HTN, goal below 130/80 11/15/2016 BPH without obstruction/lower urinary tr act symptoms 11/15/2016 Vascular disease 11/15/2016 Hyperlipidemia with target LDL less than 130 11/15/2016 documented as of this encounter (statuses as of 06/22/2023) Resolved Problems Problem Noted Date Resolved Date Stage 3a chronic kidney disease 10/27/2022 01/24/2023 Overview: Per CKD protocol documented as of this encounter (statuses as of 06/22/2023) Immunizations Name Administration Dates Next Due COVID-19 [...] 0.6 oz pur e alcohol) rarely Sex Assigned at Date Recorded Not on file Job Start Date Occupation [...] Plan of Treatment Upcoming Encounters Date Type Specialty Care Team Description 07/17/2023 Laboratory Laboratory [facility] [address] [place] [address] 07/17/2023 Imaging Radiology 07/23/2023 Office Visit Nephrology Geraldo Sheehan MD [address] [place] [address] 07/25/2023 Office Visit Urology Nabeel Alvarado MD [address] [place] [address] 07/25/2023 Office Visit Hematology Oncology Romel Perez MD [address] [place] [address] 11/23/2023 Office Visit Family Medicine Elissa Carrero MD [address] [id number] Health Maintenance Due Date Last Done Comments Depression Screening 1957 Albumin/Creatinine Ratio 02/07/1964 CKD PHOS USE SMARTSET 54433 02[birth year]07/1963 Zoster Vaccines (2 of 3) 10/29/2013 09/03/2013 COVID-19 Vaccine ( season) 2023 01/09/2022, 06/28/2021, 11/10/2020, Additional history exists Influenza Vaccine (FLU shot) (#1) 2023 06/27/2022, 07/12/2021, 07/13/2020, Additional history exists GFR 10/10/2023 04/09/2023, 12/16, 09/27/2022, Additional history exists CKD HGB USE SMARTSET 95777 04/09/202404/09, 04/09/2023, 12/26/2022, Additional history exists DTaP,Tdap,and Td Vaccines (3 [...] the patient have Health Care Power of Director Of Hotel? No Care Teams Carton Forming Machine Adjuster Relationship Specialty Start Date End Date Elissa Carrero MD [address], [place] [phone] PCP - General Family Medicine 12/29/22 documented as of this encounter
--- OUTSIDE RECORDS SUMMARY | 2023-11-20 06:15 | External Medical Summary ---
Author Name Unknown Address Unknown Organization [id number] [address] [place] [address] Laboratory Report Ordering Provider Test Date Status ERIN TESFAYE 07/17/2023 10:29:35 Final Observation Date Value Abnormality Reference (Units ) Status SYNC LEUKOCYTES IN BLOOD BY AUTOMATED COUNT 07/17/2023 10:29:35 5.54 4.00-10.80 (K/uL) Final Segs 07/17/2023 10:29:35 58.9 40.0-75.0 (%) Final Lymphs % 07/17/2023 10:29:35 24.7 18.0-42.0 (%) Final Monos 07/17/2023 10:29:35 9.6 1.0-11.0 (%) Final Eosinophils 07/17/2023 10:29:35 6.3 Above high normal 0.0-6.0 (%) Final Basos 07/17/2023 10:29:35 0.5 0.0-2.0 (%) Final Absolute Segs 07/17/2023 10:29:35 3.26 1.80-7.70 (K/uL) Final Lymphs, absolute 07/17/2023 10:29:35 1.37 1.00-4.80 (K/ul) Final Monos, Abs 07/17/2023 10:29:35 0.53 0.00-1.10 (K/uL) Final Eos, Abs 07/17/2023 10:29:35 0.35 0.00-0.70 (K/uL) Final Basos, Abs 07/17/2023 10:29:35 0.03 0.00-0.20 (K/uL) Final Performing Location [facility] - [address] [place] [address]
--- OUTSIDE RECORDS SUMMARY | 2023-11-20 06:15 | External Medical Summary ---
Author Name Unknown Address Unknown Organization [id number] [address] - [address] [place] [address] Laboratory Report Ordering Provider Test Date Status ERIN TESFAYE 07/17/2023 10:29:35 Final Observation Date Value Abnormality Reference (Units ) Status BUN 07/17/2023 10:29:35 31 Above high normal 6-20 (mg/dL) Final Creatinine 07/17/2023 10:29:35 2.0 Above high normal 0.6-1.2 (mg/dL) Final Glomerular filtration rate/1.73 sq M.predicted [Volume Rate/Area] in Serum, Plasma or Blood by Creatinine-based formula (CKD-EPI) 07/17/2023 10:29:35 34 Below low normal >=60 (mL/min) Final eGFR is calculated based on the CKD-EPI 2020 equation SODIUM 07/17/2023 10:29:35 140 135-146 (m mol/L) Final Potassium 07/17/2023 10:29:35 4.9 3.5-5.1 (m mol/L) Final Cl 07/17/2023 10:29:35 105 98-107 (mm ol/L) Final CO2 07/17/2023 10:29:35 24 22-32 (mmo l/L) Final Anion gap 07/17/2023 10:29:35 11 7-15 (mmol /L) Final Glucose 07/17/2023 10:29:35 114 70-120 (mg /dL) Final Albumin 07/17/2023 10:29:35 4.4 3.8-5.0 (g /dL) Final AST (Aspartate aminotransferase) 07/17/2023 10:29:35 18 10-50 (U/L) Final Alk Phos 07/17/2023 10:29:35 58 35-130 (U/ L) Final Bilirubin, Total 07/17/2023 10:29:35 0.3 <=1 .2 (mg/dL) Final Calcium 07/17/2023 10:29:35 9.5 8.4-10.2 ( mg/dL) Final Protein 07/17/2023 10:29:35 7.0 6.0-8.3 (g /dL) Final ALT (Alanine aminotransferase) 07/17/2023 10:29:35 11 10-50 (U/L) Final Performing Location [facility] [address] - [address] [facility] [address]
--- OUTSIDE RECORDS SUMMARY | 2023-11-20 06:15 | External Medical Summary | Summary of Care ---
Author Name Unknown Organization [facility] Address [address] [place] [address] Phone [phone] Care Team Providers Care Dental Chairside Assistant Name Role Phone Elissa Carrero MD Primary Care Provider Reason for Visit * Reason Onset Date Comments Surgery 06/29/2023 Procedure ssched uled Encounter Details Date Type Department Care Team Description 06/29/2023 Telephone Urology, [place] [address] [place] [address] Nabeel Alvarado MD [address] [place] [address] Surgery (Procedure sscheduled) Allergies Active Allergy Reactions Severity Noted Date Comments Lisinopril 07/04/2019 Other reaction(s): Angioedema Piroxicam 10/25/2022 Other reaction(s): muscle spasms documented as of this encounter (statuses as of 06/29/2023) Medications Medication Sig Dispensed Refills Start Date [...] as of this encounter (statuses as of 06/29/2023) Active Problems Problem Noted Date Chronic kidney [...] as of this encounter (statuses as of 06/29/2023) Resolved Problems Problem Noted Date Resolved Date Stage 3a chronic kidney disease 10/27/2022 01/24/2023 Overview: Per CKD protocol documented as of this encounter (statuses as of 06/29/2023) Immunizations Name Administration Dates Next Due COVID-19 [...] Specialty Care Team Description 07/17/2023 [facility] [address] 07/17/2023 Imaging Radiology 07/23/2023 Office Visit Nephrology Geraldo Sheehan MD [address] [place] [address] 07/25/2023 Office Visit Urology Nabeel Alvarado MD [address] [place] [address] 07/25/2023 Office Visit Hematology Oncology Romel Perez MD [address] [place] [address] 08/29/2023 Hospital Encounter Surgery Nabeel Alvarado MD [address] [place] [address] 11/23/2023 Office Visit Family Medicine Elissa Carrero MD [address] [address] Scheduled Procedures Name Priority Associated Diagnoses Date/Ti me CYSTOURETHROSCOPY Malignant neoplasm of urinary bladder, unspecified site (HCC) Health Maintenance Due Date Last Done Comments Depression Screening 1957 Albumin/Creatinine Ratio 02/07/1964 CKD PHOS USE SMARTSET 94383 02/07/1964 Zoster Vaccines (2 of 3) 10/29/2013 09/03/2013 COVID-19 Vaccine ( season) 2023 01/09/2022, 06/28/2021, 11/10/2020, Additional history exists Influenza Vaccine (FLU shot) (#1) 2023 06/27/2022, 07/12/2021, 07/13/2020, Additional history exists GFR 10/10/2023 04/09/2023, 12/16, 09/27/2022, Additional history exists CKD HGB USE SMARTSET 56368 04/09/202404/09, 04/09/2023, 12/26/2022, Additional history exists DTaP,Tdap,and [...] the patient have Health Care Power of Fondant Machine Operator? No Care Teams Dental Chairside Assistant Relationship Specialty Start Date End Date Elissa Carrero MD [address], [place] [address] PCP - General Family Medicine 12/29/22 documented as of this encounter
--- OUTSIDE RECORDS SUMMARY | 2023-11-20 06:15 | External Medical Summary ---
Author Name Unknown Address Unknown Organization K01:[facility] - [address] [place] [address] Laboratory Report Ordering Provider Test Date Status SUSI DOTSON 07/17/2023 10:29:35 Final Observation Date Value Abnormality Reference (Units ) Status HbA1C 07/17/2023 10:29:35 6.1 Above high normal 4. 0-5.6 (%) Final The use of HbA1c to monitor glycemic status is based on normal hemoglobin and HbA composition. This test should not be used in patients with abnormal hemoglobin that affects the half life of the red blood cell or the in vivo glycation rates. Glucose, estimated average 07/17/2023 10:29:35 128 Above high normal <126 (mg/dL) Frantz kirkpatrick Performing Location [facility] - [address] [facility] [address]
--- OUTSIDE RECORDS SUMMARY | 2023-11-20 06:15 | External Medical Summary ---
Author Name Unknown Address Unknown Organization [facility] [address] - [address] [place] [address] Laboratory Report Ordering Provider Test Date Status ERIN TESFAYE 07/17/2023 10:29:35 Final Observation Date Value Abnormality Reference (Units ) Status WBC, Total 07/17/2023 10:29:35 5.54 4.00-10.8 0 (K/uL) Final RBC 07/17/2023 10:29:35 4.57 4.50-5.25 (M/uL) Final Hemoglobin 07/17/2023 10:29:35 14.3 14.0-16.8 (g/dL) Final HCT 07/17/2023 10:29:35 43.7 40.0-48.4 (%) Final MCV 07/17/2023 10:29:35 95.6 82.0-99.5 (fL) Final MCH 07/17/2023 10:29:35 31.3 27.0-34.0 (pg) Final MCHC 07/17/2023 10:29:35 32.7 32.0-36.0 (g/dL) Final RDW 07/17/2023 10:29:35 13.0 11.5-15.5 (%) Final Platelets 07/17/2023 10:29:35 196 140-400 (K /uL) Final MPV 07/17/2023 10:29:35 10.8 6.6-11.1 ( fL) Final Performing Location [facility] [address] - [address] [place] [address]
--- OUTSIDE RECORDS SUMMARY | 2023-11-20 06:15 | External Medical Summary | Summary of Care ---
Author Name Unknown Organization [facility] Address [address] [facility] [address] Phone [phone] Care Team Providers Care Psychological Stress Evaluator Name Role Phone Elissa Carrero MD Primary Care Provider Reason for Visit * Reason Comments Outpatient Testing Encounter Details Date Type Department Care Team (Late st Contact Info) Description 07/17/2023 10:30 AM EDT Laboratory Laboratory, [facility] [phone] [facility] 132 [place] [address] Cancer of left renal pelvis (HCC); Malignant neoplasm of overlapping sites of bladder (HCC); Impaired fasting glucose Allergies Active Allergy Reactions Criticality Noted Date Comments Lisinopril 07/04/2019 Other reaction(s): Angioedema Piroxicam 10/25/2022 Other reaction(s): muscle spasms documented as of this encounter (statuses as of 07/17/2023) Medications Medication Sig Dispensed Refills Start Date [...] as of this encounter (statuses as of 07/17/2023) Active Problems Problem Noted Date Diagnosed Date [...] as of this encounter (statuses as of 07/17/2023) Resolved Problems Problem Noted Date Diagnosed Date Resolved Date Stage 3a chronic kidney disease 10/27/2022 01/24/2023 Overview: Per CKD protocol documented as of this encounter (statuses as of 07/17/2023) Immunizations Name Administration Dates Next Due COVID-19 [...] 07/23/2023 2:40 PM EST Office Visit Nephrology, [facility] 200 [facility] [place] [address] Geraldo Sheehan MD 200 [facility] [place] [address] 07/25/2023 4:00 PM EST Office Visit Hematology/Oncology [facility] [place] 200 [facility] [place] [address] Romel Perez MD 200 [facility] [place] [address] 07/31/2023 2:45 PM EST Office Visit Family Medicine, [facility] 7095 [facility] [address] [place] [phone] Elissa Carrero MD 7095 [facility] [address] [place] [address] 08/15/2023 9:30 AM EST Office Visit Urology, [place] [address] [place] [address] Rojelio Rose PA-C [address] [place], [place] [phone] 08/15/2023 10:30 AM EST Pre-Admission Testing Pre Surgery Center, [place] [address] [place] [facility] [place] [address] Nicola Kirk [address] [facility] [place] [address] 08/29/2023 12:38 PM EST Hospital Encounter OR [facility], OPERATING ROOM [facility], TJ PAVWINIFRED [address] [facility] [place] [address] Nabeel Alvarado MD [address] [place] [address] 08/29/2023 12:38 PM EST - 08/29/2023 2:06 PM EST Surgery OR [facility], OPERATING ROOM [facility], TJ LENNYWINIFRED [address] [facility] [place] [address] Nabeel Alvarado MD [address] [place] [address] CYSTOURETHROSCOPY 09/19/2023 1:00 PM EST Office Visit Urology, [place] [address] [place] [address] Nabeel Alvarado MD [address] [place] [address] 11/23/2023 10:15 AM EST [facility] 7095 [facility] 1100 [place] [phone] Elissa Carrero MD 7095 [facility] [address] [place] [address] Pending Results Name Type Priority Associated Diagnoses Date /Time COMPREHENSIVE METABOLIC PANEL Lab STAT Cancer of left renal pelvis (HCC) Malignant neoplasm of overlapping sites of bladder (HCC) 07/17/2023 10:29 AM EDT HEMOGLOBIN A1C Lab Routine Impaired fasting glucose 07/17/2023 10:29 AM EDT Scheduled Procedures Name Priority Associated Diagnoses Date/Ti me CYSTOURETHROSCOPY Malignant neoplasm of urinary bladder, unspecified site (HCC) 08/29/2023 12:38 PM EST Health Maintenance Due Date Last Done Comments Depression Screening 1957 Albumin/Creatinine Ratio 02/07/1964 CKD PHOS USE SMARTSET 66739 02/07/1963 Zoster Vaccines (2 of 3) 10/29/2013 09/03/2013 COVID-19 Vaccine (5 - season) 2023 01/09/2022, 06/28/2021, 11/10/2020, Additional history exists Influenza Vaccine (FLU shot) (#1) 2023 06/27/2022, 07/12/2021, 07/13/2020, Additional history exists GFR 10/10/2023 04/09/2023, 12/16, 09/27/2022, Additional history exists CKD HGB USE SMARTSET 69477 04/09/202407/17, 07/17/2023, 04/09/2023, Additional history exists DTaP,Tdap,and Td [...] Date/Time Associated Diagnosis Comments DIFFERENTIAL, AUTOMATED STAT 07/17/2023 10:29 AM EDT Cancer of left renal pelvis (HCC) Malignant neoplasm of overlapping sites of bladder (HCC) CBC STAT 07/17/2023 10:29 AM EDT Cancer of left renal pelvis (HCC) Malignant neoplasm of overlapping sites of bladder (HCC) CBC STAT 07/17/2023 10:29 AM EDT Cancer of left renal pelvis (HCC) Malignant neoplasm of overlapping sites of bladder (HCC) documented in this encounter Results * (ABNORMAL) DIFFERENTIAL, AUTOMATED (07/17/2023 10:29 AM EDT) WBC 5.54 4.00 - 10.80 K/uL 07/17/2023 10:35 AM EDT [facility] Neutrophils % 58.9 40.0 - 75.0 % 07/17/2023 10:35 AM EDT [facility] Lymphocytes % 24.7 18.0 - 42.0 % 07/17/2023 10:35 AM EDT [facility] Monocytes % 9.6 1.0 - 11.0 % 07/17/2023 10:35 AM EDT [facility] Eosinophils % 6.3(H) 0.0 - 6.0 % 07/17/2023 10:35 AM EDT [facility] Basophils % 0.5 0.0 - 2.0 % 07/17/2023 10:35 AM EDT [facility]10 Absolute Neutrophils 3.26 1.80 - 7.70 K/uL 07/17/2023 10:35 AM EDT [facility] Absolute Lymphocytes 1.37 1.00 - 4.80 K/ul 07/17/2023 10:35 AM EDT [facility] Absolute Monocytes 0.53 0.00 - 1.10 K/uL 07/17/2023 10:35 AM EDT [facility] Absolute Eosinophils 0.35 0.00 - 0.70 K/uL 07/17/2023 10:35 AM EDT [facility] Absolute Basophils 0.03 0.00 - 0.20 K/uL 07/17/2023 10:35 AM EDT [facility] Blood Venous blood specimen / Unknown Venipuncture / Unknown 07/17/2023 10:29 AM EDT 07/17/2023 10:29 AM EDT Dipti VAN LAB BLOOD ORDER AMISHA [facility] [place] [id number] * CBC (07/17/2023 10:29 AM EDT) WBC 5.54 4.00 - 10.80 K/uL 07/17/2023 10:35 AM EDT [facility] 57-10 RBC 4.57 4.50 - 5.25 M/uL 07/17/2023 10:35 AM EDT [facility]10 HGB 14.3 14.0 - 16.8 g/dL 07/17/2023 10:35 AM EDT [facility] 57-10 HCT 43.7 40.0 - 48.4 % 07/17/2023 10:35 AM EDT [facility] 57-10 MCV 95.6 82.0 - 99.5 fL 07/17/2023 10:35 AM EDT LAB[facility] 57-10 MCH 31.3 27.0 - 34.0 pg 07/17/2023 10:35 AM EDT [facility]10 MCHC 32.7 32.0 - 36.0 g/dL 07/17/2023 10:35 AM EDT [facility] 57-10 RDW 13.0 11.5 - 15.5 % 07/17/2023 10:35 AM EDT LAB[facility]ORY [facility] 57-10 PLT 196 140 - 400 K/uL 07/17/2023 10:35 AM EDT [facility] 57-10 MPV 10.8 6.6 - 11.1 fL 07/17/2023 10:35 AM EDT [facility] 57-10 Blood Venous blood specimen / Unknown Venipuncture / Unknown 07/17/2023 10:29 AM EDT 07/17/2023 10:29 AM EDT Dipti VAN LAB BLOOD ORDER AMISHA [facility]AT[facility] 57[address] [place] [id number] documented in this encounter Visit Diagnoses Diagnosis Cancer of left renal pelvis (HCC) Malignant neoplasm of overlapping sites of bladder (HCC) Malignant neoplasm of other specified sites of bladder Impaired fasting glucose Malignant neoplasm of urinary bladder, unspecified site [...] the patient have Health Care Power of Jewel Hole Rough Opener? No Care Teams Psychological Stress Evaluator Relationship Specialty Start Date End Date Elissa Carrero MD [address] [address] PCP - General Family Medicine 12/29/22 documented as of this encounter
--- OUTSIDE RECORDS SUMMARY | 2023-11-20 06:15 | External Medical Summary ---
Author Name Unknown Address Unknown Organization : Laboratory Report Ordering Provider Test Date Status NO,UNKNOWN 07/20/2023 09:47:32 Final Observation Date Value Abnormality Reference (Units ) Status Glucose Point of Care 07/20/2023 09:47:32 92 70-120 (mg/dL) Final Performing Location
--- OUTSIDE RECORDS SUMMARY | 2023-11-20 06:16 | External Medical Summary | Summary of Care ---
Author Name Unknown Organization [facility] Address [address] [place] [address] Care Team Providers Care High School Band Director Name Role Phone Elissa Carrero MD Primary Care Provider Encounter Details Date Type Department Care Team Description 06/19/2023 Telephone OtolaryngologyPat [facility] [address] [place] [phone] Susu Rome, DO [address] [place] [address] Allergies Active Allergy Reactions Severity Noted Date Comments Lisinopril 07/04/2019 Other reaction(s): Angioedema Piroxicam 10/25/2022 Other reaction(s): muscle spasms documented as of this encounter (statuses as of 06/19/2023) Medications Medication Sig Dispensed Refills Start Date End Date Status MULTIVITAMINS PO TABS daily 0 Active Diclofenac Sodium 1 % gel Place topically on the skin. 0 08/28/2018 Active omeprazole (PRILOSEC) 20 MG CPDR Take by mouth. 0 09/15/2019 Active Famotidine 40 MG Oral Tablet (Pepcid) 0 03/25/2021 Acti ve Prochlorperazine Maleate 10 MG Oral Tablet (Compazine)Indicatio [...] the evening 450 Tablet 3 05/24/2023 Active documented as of this encounter (statuses as of 06/19/2023) Active Problems Problem Noted Date Chronic kidney [...] as of this encounter (statuses as of 06/19/2023) Resolved Problems Problem Noted Date Resolved Date Stage 3a chronic kidney disease 10/27/2022 01/24/2023 Overview: Per CKD protocol documented as of this encounter (statuses as of 06/19/2023) Immunizations Name Administration Dates Next Due COVID-19 [...] encounter Miscellaneous Notes * Telephone Encounter - Karin Pappas LPN - 06/19/2023 1:39 PM EDT Rec'd Rx Clarification request for Famotidine from pharmacy. Patient not seen in our office since 2020. Sent back to pharmacy stating patient not seen since 2020 and if medication needed, to check with Dr. Carrero's office. documented in this encounter Plan of Treatment Upcoming Encounters Date Type Specialty Care Team Description 07/17/2023 Laboratory Laboratory [facility] [address] [place] [address] 07/17/2023 Imaging Radiology 07/23/2023 Office Visit Nephrology Geraldo Sheehan MD 200 [facility] [place] [address] 07/25/2023 Office Visit Urology Nabeel Alvarado MD [address] [place] [address] 07/25/2023 Office Visit Hematology Oncology Romel Perez MD [address] [place] [address] 11/23/2023 Office Visit Family Medicine Elissa Carrero MD [address] [address] Health Maintenance Due Date Last Done Comments Depression Screening 1957 Albumin/Creatinine Ratio 02/07/1963 CKD PHOS USE SMARTSET 02936 02[birth year]07/1963 Zoster Vaccines (2 of 3) 10/29/2013 09/03/2013 COVID-19 Vaccine ( season) 2023 01/09/2022, 06/28/2021, 11/10/2020, Additional history exists Influenza Vaccine (FLU shot) (#1) 2023 06/27/2022, 07/12/2021, 07/13/2020, Additional history exists GFR 10/10/2023 04/09/2023, 12/16, 09/27/2022, Additional history exists CKD HGB USE SMARTSET 68432 04/09/202404/09, 04/09/2023, 12/26/2022, Additional history exists DTaP,Tdap,and [...] the patient have Health Care Power of Photographer Motion Picture? No Care Teams High School Band Director Relationship Specialty Start Date End Date Elissa Carrero MD [address] [place] [address] PCP - General Family Medicine 12/29/22 documented as of this encounter
--- OUTSIDE RECORDS SUMMARY | 2023-11-20 06:16 | External Medical Summary | Summary of Care ---
Author Name Unknown Organization [facility] Address [address] [facility] [place] [address] Care Team Providers Care Oracle Database Manager Name Role Phone Elissa Carrero MD Primary Care Provider Reason for Referral * Evaluate & Treat - Unlimited Visits (Within 10 days (routine)) - Authorized Specialty Diagnoses / Procedures Referred By Contcarl t Referred To Contact Physical Therapy / Physical Medicine And Rehab Diagnoses Chronic bilateral low back pain with bilateral sciatica Elissa Carrero MD [address] [place] [address] [place] [id number] Referral ID Status Reason Start Date Expiration Date Visits Requested Visits Authorized [id number] Authorized Specialty Services Required 05/24/2023 05/24/[phone] Question Answer Referral Priority Within 10 days (routine) Where should this appointment be scheduled? Internal Comments [facility] Reason for Visit * Reason Comments Follow Up Patient here for a 6 month f/u for CKD, hyperlipidemia and Hypertension. He has no medication changes. Encounter Details Date Type Department Care Team Description 05/24/2023 Office Visit Family Medicine, [facility] [address] [address] [place] [phone] Elissa Carrero MD [address] [place] [address] [place] [id number] Chronic kidney disease, stage 3b (HCC)*; LPRD (laryngopharyngeal reflux disease); Impaired fasting glucose; Chronic bilateral low back pain with bilateral sciatica; Hyperlipidemia, unspecified hyperlipidemia type; Cancer of left renal pelvis (HCC) Allergies Active Allergy Reactions Severity Noted Date Comments Lisinopril 07/04/2019 Other reaction(s): Angioedema Piroxicam 10/25/2022 Other reaction(s): muscle spasms documented as of this encounter (statuses as of 05/25/2023) Medications Medication Sig Dispensed Refills Start Date End Date Status MULTIVITAMINS PO TABS daily 0 Active Diclofenac Sodium 1 % gel Place topically on the skin. 0 08/28/2018 Active omeprazole (PRILOSEC) 20 MG CPDR Take by mouth. 0 09/15/2019 Active Famotidine 40 MG Oral Tablet (Pepcid) 0 03/25/2021 Active Prochlorperazine Maleate 10 MG Oral Tablet [...] TABLET DAILY 90 Tablet 3 11/06/2022 Active Sennosides-Docusa te Sodium 8.6-50 MG Oral Tablet (Senokot-S) TAKE ONE TABLET BY MOUTH EVERY DAY IN THE MORNING 30 Tablet 0 05/25/2022 05/25/2023 Active Lidocaine 5 % External Patch (Lidoderm) [...] the evening 450 Tablet 3 05/24/2023 Active Gabapentin 600 MG Oral Tablet (Neurontin) Take 1 Tablet by mouth in the morning and 1 Tablet at noon and 1 Tablet in the evening. 90 Tablet 2 11/17/2022 05/24/2023 Discontinue d(Refill) documented as of this encounter (statuses as of 05/25/2023) Active Problems Problem Noted Date Chronic kidney [...] as of this encounter (statuses as of 05/25/2023) Resolved Problems Problem Noted Date Resolved Date Stage 3a chronic kidney disease 10/27/2022 01/24/2023 Overview: Per CKD protocol documented as of this encounter (statuses as of 05/25/2023) Immunizations Name Administration Dates Next Due COVID-19 mRNA, LNP-s, No Pre serve, 2-Dose Series (Noovo) 01/09/2022,06/28/2021,11/10/2020,10/21 Pneumococcal Conjugate Vacc, 13 Valent (Prevnar) [...] Sign Reading Time Taken Comments Blood Pressure 133/72 05/24/2023 11:40 AM EDT Pulse 59 05/24/2023 11:40 AM EDT Temperature 35.9 C (96.6 F) 05/24/2023 11:40 AM E DT Respiratory Rate - - Oxygen Saturation - - Inhaled Oxygen Concentration - - Weight 74.1 kg (163 lb 6.4 oz) 05/24/2023 11:40 AM EDT Height 163.8 cm (5' 4.5") 05/24/2023 11:40 AM ED T Body Mass Index 27.61 05/24/2023 11:40 AM EDT documented in this [...] Progress Notes * Elissa Carrero MD - 05/24/2023 11:47 AM EDT Images from the original note were not included. History of Present Illness Drew Rosen is a 78 year old male that presents for Follow Up (Patient here for a 6 month f/u for CKD, hyperlipidemia and Hypertension. He has no medication changes. 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 Has undergone chemo x4 cycles. Initial PET showed no metastasis but questionedactivity in renal pelvis (post-surg vs other). Will be getting a repeat PET this fall. Cysto 5/3 normal, will also be getting repeat this fall. Renal function is stable stage 3b. Following with Nephrology q6mo Has ongoing chronic back pain. Had his yearly meeting with back surgeon, xray showed stable hardware. Has been through interventions with pain management and hasn't found that to be worthwhile. Neuropathy has been managed with gabapentin 1200/600/1200. Planning for cataract surgery in June - doesn't have a date yet. Would like to get a permit to [place] from his vehicle. [facility] with [facility] - has qualified for compensation related to [employer] based on the type of cancer he has been diagnosed with. 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 Feels he has adequate support through social networks. Has a very close friend that is nearing end of life, so that is also a stressor. Physical Exam Vitals: 05/24/23 1140 Temp: 35.9 C (96.6 F) Pulse: 59 BP: 133/72 BMI: 27.62 I have reviewed the following results: BMP results Recent Labs Units 04/09/23 1050 12/26/22 1027 09/27/22 1047 SODIUM - [facility] mmol/L 138 140 138 POTASSIUM - [facility] mmol/L 4.3 4.4 4.4 CHLORIDE - [facility] mmol/L 103 105 102 CO2 - [facility] mmol/L 24 27 24 CREATININE - [facility] mg/dL 1.8* 1.9* 2.0* BUN - [facility] mg/dL 27* 29* 28* Lipid panel resultsNo results for input(s): CHOL, LDLCALC, HDL, TRIG in the last 37556 hours. CBC results Recent Labs Units 04/09/23 1050 12/26/22 1027 09/27/22 1047 WBC AUTO - [facility] K/uL 5.13 4.95 4.04 HGB - [facility] g/dL 12.6* 13.1* 8.5* HCT - [facility] % 38.3* 39.4* 25.8* PLATELET AUTO - [facility] K/uL 187 178 149 HbA1c results Recent Labs Units 05/24/22 0607 HEMOGLOBIN A1C - [facility] % 5.9* TSH results No results for input(s): TSH in the last 21768 hours. Vitamin D results No results for input(s): 25OHVITAMIND in the last 57107 hours. Hepatic panel results Recent Labs Units 04/09/23 1050 12/26/22 1027 09/27/22 1047 PROTEIN - [facility] g/dL 6.6 7.0 7.0 BILIRUBIN, TOTAL - [facility] mg/dL 0.4 0.3 0.2 ALKALINE PHOSPHATASE - [facility] U/L 69 58 77 AST - [facility] U/L 17 18 26 ALT - [facility] U/L 8* 7* 36 Assessment and Plan Chronic kidney disease, stage 3b (HCC) Stable, avoiding nephrotoxins, encourage hydration LPRD (laryngopharyngeal reflux disease) Stable Impaired fasting glucose Update labs - HEMOGLOBIN A1C; Future - LIPID PANEL - (ECH ONLY); Future Chronic bilateral low back pain with bilateral sciatica Has seen ortho and pain management. Would be interested in PT - ordered - PHYSICAL THERAPY REFERRAL OP Hyperlipidemia, unspecified hyperlipidemia type Stable - LIPID PANEL - (ECH ONLY); Future Cancer of left renal pelvis (HCC) Following closely with heme/onc, Urology, planning for PET this fall. Notes reviewed. Wrap-Up Follow Up: Return in about 6 months (around 11/22/2023) for Return with Physician. | For: Return withPhysician Time: I spent a total of 30-39 minutes (exact time 36 mins) on the date of service in preparation, delivery, and documentation of the care provided to Drew Rosen excluding any time spent in the performance of separately billed services. documented in this encounter Plan of Treatment Upcoming Encounters Date Type Specialty Care Team Description 07/17/2023 Laboratory Laboratory [place] [address] [facility] [place] [address] 07/17/2023 Imaging Radiology 07/23/2023 Office Visit Nephrology Geraldo Sheehan MD [address] [place] [address] 07/25/2023 Office Visit Urology Nabeel Alvarado MD [address] [place] [address] 07/25/2023 Office Visit Hematology Oncology Romel Perez MD [address] [place] [address] 11/23/2023 Office Visit Family Medicine Elissa Carrero MD [address] [address] Scheduled Orders Name Type Priority Associated Diagnoses Orde r Schedule HEMOGLOBIN A1C Lab Routine Impaired fasting glucose Expected: 05/24/2023 (Approximate), Expires: 05/24/2024 LIPID PANEL - ([facility] ONLY) Lab Routine Impaired fasting glucose Hyperlipidemia, unspecified hyperlipidemia type Expected: 05/24/2023 (Approximate), Expires: 05/24/2024 Scheduled Referrals Name Type Priority Associated Diagnoses Orde r Schedule PHYSICAL THERAPY REFERRAL OP Referral Within 10 days (routine) Chronic bilateral low back pain with bilateral sciatica Ordered: 05/24/2023 Health Maintenance Due Date Last Done Comments Depression Screening 1957 Albumin/Creatinine Ratio 02/07/1964 CKD PHOS USE SMARTSET 90033 02[birth year]07/1963 Zoster Vaccines (2 of 3) 10/29/2013 09/03/2013 COVID-19 Vaccine (5 - Pfizer series) 03/06/2022 01/09/2022, 06/28/2021, 11/10/2020, Additional history exists Influenza Vaccine (FLU shot) (#1) 2023 06/27/2022, 07/12/2021, 07/13/2020, Additional history exists GFR 10/10/2023 04/09/2023, 12/16, 09/27/2022, Additional history exists CKD HGB USE SMARTSET 06821 04/09/202404/09, 04/09/2023, 12/26/2022, Additional history exists DTaP,Tdap,and [...] as of this encounter Visit Diagnoses Diagnosis Chronic kidney disease, stage 3b (HCC)- Primary LPRD (laryngopharyngeal reflux disease) Other diseases of larynx Impaired fasting glucose Chronic bilateral low back pain with bilateral sciatica Hyperlipidemia, unspecified hyperlipidemia type Cancer of left renal pelvis (HCC) documented in this encounter Advance Directives [...] the patient have Health Care Power of Centerless Grinder Tender? No Care Teams Oracle Database Manager Relationship Specialty Start Date End Date Elissa Carrero MD [address] [place] [address] PCP - General Family Medicine 12/29/22 documented as of this encounter
--- NOTE | 2023-11-20 08:26 | Electrocardiogram Report ---
Test Reason : Blood Pressure : / mmHG Vent. Rate : 060 BPM Atrial Rate : 060 BPM P-R Int : 102 ms QRS Dur : 088 ms QT Int : 442 ms P-R-T Axes : 013 024 037 degrees QTc Int : 442 ms Sinus rhythm with short OR Incomplete right bundle branch block Diffuse Minor Nonspecific T wave abnormality Abnormal ECG When compared with ECG of 29-JUL-2014 14:11, No significant change Confirmed by Vincenzo Francois ([id number]) on 11/20/2023 8:25:58 AM Referred By: REFERRED SELF Confirmed By:Vincenzo Francois
[2023-11-20] MEDS: GABAPENTIN 600 MG TAB PO SCH ×2 (08:41→15:12)
--- OUTSIDE RECORDS SUMMARY | 2023-11-20 08:44 | External Medical Summary | Summary of Care ---
Author Name Unknown Organization [facility] Address [address] [place] [address] Phone [phone] Care Team Providers Care Manager New Product Name Role Phone Elissa Carrero MD Primary Care Provider Reason for Visit * Reason Onset Date Comments Medication Refill 09/06/2023 Encounter Details Date Type Department Care Team (Late st Contact Info) Description 09/06/2023 Refill Hematology/Oncology Treatment, [place] [address] [place] [address] Romel Perez MD [address] [place] [address] Cancer of left renal pelvis (HCC)* Allergies [...] mRNA, LNP-s, No Pre serve, 2-Dose Series (D1G) 01/09/2022,06/28/2021,11/10/2020,10/21 Pneumococcal Conjugate Vacc, 13 Valent (Prevnar) [...] Encounter - Madai Hull RN - 09/06/2023 2:48 PM EST Pended EMLA documented in this encounter Plan of Treatment Upcoming Encounters Date Type Department Care Team (Late st Contact Info) Description 09/19/2023 1:00 PM EST Office Visit Urology, [place] [address] [place] [address] Nabeel Alvarado MD [address] [place] [address] 11/23/2023 10:15 AM EST Office Visit Family Medicine, [facility] [address] [facility] [address] [place] [phone] Elissa Carrero MD [address] [facility] [address] [place] [address] 05/13/2024 2:00 PM EDT Office Visit Nephrology, [facility] [address] [place] [address] Geraldo Sheehan MD [address] [place] [address] Health Maintenance Due Date Last Done Comments Depression Screening 1957 Albumin/Creatinine Ratio 02/07/1964 CKD PHOS USE SMARTSET 32428 02[birth year]07/1963 Zoster Vaccines (2 of 3) 10/29/2013 09/03/2013 COVID-19 Vaccine ( season) 2023 01/09/2022, 06/28/2021, 11/10/2020, Additional history exists GFR 02/13/2024 08/15/2023, 06/19, 04/09/2023, Additional history exists CKD HGB USE SMARTSET 07102 08/15/202408/15, 08/15/2023, 07/17/2023, Additional history exists DTaP,Tdap,and [...] the patient have Health Care Power of District Service Manager? Yes, not currently available Code Status [...] the patient have Health Care Power of District Service Manager? No Care Teams Manager New Product Relationship Specialty Start Date End Date Elissa Carrero MD [address] [place] [address] PCP - General Family Medicine 12/29/22 documented as of this encounter
--- OUTSIDE RECORDS SUMMARY | 2023-11-20 08:44 | External Medical Summary | Summary of Care ---
Author Name Unknown Organization [facility] Address [address] [facility] [place] [address] Phone [phone] Care Team Providers Care Pumping Supervisor Name Role Phone Elissa Carrero MD Primary Care Provider Encounter Details Date Type Department Care Team (Late st Contact Info) Description 09/06/2023 2:30 PM EST Nurse Only Hematology/Oncology [facility] Tammy Milo [address] [place] [address] [place], Nurse Hem Onc [facility] [address] [place] [address] Arrived Allergies Active Allergy Reactions Criticality Noted Date [...] flare ups- starting it 09/06/23. 0 Active documented as of this encounter [...] as of this encounter Nursing Notes * Madai Hull RN - 09/06/2023 4:38 PM EST Nurse education for keytruda completed. documented in this encounter Plan of Treatment Upcoming Encounters Date Type Department Care Team (Late st Contact Info) Description 09/19/2023 1:00 PM EST Office Visit Urology, [place] [address] [place] [address] Nabeel Alvarado MD [address] [place] [address] 11/23/2023 10:15 AM EST Office Visit Family Medicine, [facility] [address] [facility] [address] [place] [phone] Elissa Carrero MD [address] [facility] [address] [place] [address] 05/13/2024 2:00 PM EDT Office Visit Nephrology, [facility] [address] [facility] [place] [address] Geraldo Sheehan MD [address] [facility] [place] [address] Health Maintenance Due Date Last Done Comments Depression Screening 1957 Albumin/Creatinine Ratio 02/07/1964 CKD PHOS USE SMARTSET 49501 02/07/1963 Zoster Vaccines (2 of 3) 10/29/2013 09/03/2013 COVID-19 Vaccine ( - season) 2023 01/09/2022, 06/28/2021, 11/10/2020, Additional history exists GFR 02/13/2024 08/15/2023, 06/19, 04/09/2023, Additional history exists CKD HGB USE SMARTSET 37826 08/15/202408/15, 08/15/2023, 07/17/2023, Additional history exists DTaP,Tdap,and [...] the patient have Health Care Power of Maintainer Operator? Yes, not currently available Code Status [...] the patient have Health Care Power of Maintainer Operator? No Care Teams Pumping Supervisor Relationship Specialty Start Date End Date Elissa Carrero MD [address] [address] PCP - General Family Medicine 12/29/22 documented as of this encounter
--- NOTE | 2023-11-20 11:37 | Electrocardiogram Report ---
Test Reason : Blood Pressure : / mmHG Vent. Rate : 057 BPM Atrial Rate : 057 BPM P-R Int : 130 ms QRS Dur : 096 ms QT Int : 440 ms P-R-T Axes : 022 020 029 degrees QTc Int : 428 ms Sinus bradycardia Incomplete right bundle branch block Borderline ECG When compared with ECG of 19-NOV-2023 17:10, No significant change was found Confirmed by Vincenzo Francois ([id number]) on 11/20/2023 11:36:49 AM Referred By: REFERRED SELF Confirmed By:Vincenzo Francois
--- NOTE | 2023-11-20 11:54 | Nuclear Medicine Report ---
NM lung perf cyn CLINICAL HISTORY: sob. PE? Technique: Perfusion imaging was performed in multiple projections after the intravenous injection of 5 mCi of Tc-99m labeled macroaggregated albumin (MAA). Comparison: Comparison is made to CT chest 11/19/2023 FINDINGS/IMPRESSION: Left-sided perfusion is significantly diminished in the posterior hemithorax, c ompatible with a large pleural effusion seen on CT. Against this background, no definite segmental de fects are seen. ACT 112: Negative or not required by law. Electronically signed by: Franky Santos M.D. 11/20/2023 11:53 AM
--- NOTE | 2023-11-20 12:44 | Pulmonary Consultation ---
Date of Consultation November 20, 2023 Assessment & Plan (1) Pleural effusion: (2) Pulmonary nodule: (3) SOB (shortness of breath): Plan Impression: 78-year-old male with metastatic renal cell carcinoma but without known history of pulmonary involvement presents now with multiple pulmonary nodules and pleural effusion and shortness of breath. Recommendations: 1. Pleural effusion: Advised the patient that diagnostic/therapeutic thoracentesis may offer him some benefit. He is agreeable to proceed. Fluid will be sent for microbiologic as well as cytologic analysis. 2. Multiple pulmonary nodules: Have asked for the patient's prior imaging at [facility] to be forwarded into our system for review including his most recent PET scan and prior CTs of the chest abdomen and pelvis. If these nodules are new and the pleural fluid does not yield a definitive diagnosis, biopsies of the nodules could be considered although with the patient already being diagnosed with metastatic cancer, it is unclear if this would pattern changer. Consultation with his outpatient oncologist is strongly recommended. 3. Dyspnea: Will see how he feels after drainage of the pleural fluid. If his symptoms are reasonably well-controlled, he can likely be dismissed from the hospital with outpatient pulmonary follow-up and follow-up with his primary care provider and [facility] medical oncology. The above recommendations and plan were extensively discussed with the patient. Questions were answered to the best my ability. He expressed understanding and is in agreement with the plan as outlined. Thanks for the opportunity participating in the care of this patient. History of Present Illness Attending Physician: Adriano Pace MD History of Present Illness Asked by hospitalist to evaluate this patient with pleural effusion and multiple pulmonary nodules and a history of metastatic renal cell carcinoma. History is obtained from discussion with the patient as well as review of the electronic medical record. Patient is a 78-year-old male with a history of transitional cell bladder cancer which is in remission and recently diagnosed renal cell carcinoma status post nephrectomy. His PET scan performed about 6 months ago demonstrated PET positive adenopathy in his abdomen per his report. We do not have any records available to review. He was given a diagnosis of metastatic renal cell carcinoma and has been initiated on Keytruda in the outpatient setting. He is completed 3 doses. He receives it every 3 weeks. His next dose is scheduled for next week. The patient presented to the emergency room late last evening with increasing shortness of breath. He denies any fevers chills night sweats. No productive cough. He is having some pain in his back abdomen and rectum. He was evaluated in the emergency room with a CT scan which demonstrated innumerable pulmonary nodules with a moderate-sized left effusion. The patient was admitted to the medicine service and pulmonary was consulted for additional management. The patient denies any known knowledge of pulmonary metastases. We do not have records from his hematology oncology evaluation or his prior imaging to review. He is not known to have osseous metastasis either. He is not anticoagulated currently. Allergies Allergy/AdvReac Type Severity Reaction Status Date / Time lisinopril Allergy Severe LIP EDEMA Verified 11/19/23 19:05 Home Medications Medication Instructions Recorded Confirmed Type aspirin 81 mg tablet,delayed 81 mg PO QPM 11/19/23 11/19/23 History release atorvastatin 20 mg tablet 20 mg PO QPM 11/19/23 11/19/23 History diclofenac sodium 1 % topical gel 2 g topical QID PRN Pain 11/19/23 11/19/23 History doxazosin 4 mg tablet 4 mg PO QPM 11/19/23 11/19/23 History doxycycline hyclate 100 mg capsule 100 mg PO BID PRN LYME FLARE-UPS 11/19/23 11/19/23 History famotidine 40 mg tablet 40 mg PO HS PRN 11/19/23 11/19/23 History HEARTBURN/INDIGESTION gabapentin 600 mg tablet See Rx Instructions .Route .COMPLEX 11/19/23 11/19/23 History lidocaine 5 % topical patch 1 patch topical DAILY PRN Pain 11/19/23 11/19/23 History lidocaine-prilocaine 2.5 %-2.5 % 1 applic topical DIRECTED PRN 1 11/19/23 11/19/23 History topical cream HR PRIOR TO MEDIPORT ACCESS modafinil 100 mg tablet 100 mg PO DIRECTED PRN Fatigue 11/19/23 11/19/23 History multivitamin 1 tab PO QPM 11/19/23 11/19/23 History omeprazole 20 mg capsule,delayed 20 mg PO QPM 11/19/23 11/19/23 History release ondansetron HCl 8 mg tablet 8 mg PO Q8H PRN NAUSEA/VOMITING 11/19/23 11/19/23 History prochlorperazine maleate 10 mg 10 mg PO Q6H PRN NAUSEA/VOMITING 11/19/23 11/19/23 History tablet (Compazine) tramadol 50 mg tablet 50 mg PO Q8H PRN Pain 11/19/23 11/19/23 History Patient History Social History Smoking Status: Never smoker Hx Alcohol Use: No Hx Substance Use: No Preferred Language: Kazakh Communication Ability: Effective Yeast Pumper Required: No Beliefs That Will Affect Care: None Current Living Situation: Spouse Other Information That Helps Us Care for You: No Feels Safe at Home: Yes Safety Concerns: Feels Safe At This Time Assistive Devices: Cane Review of Systems Review of Systems: Please refer to admission H&P. No additions or deletions Physical Exam Constitutional: WD/WN, vitals as above Neck: trachea midline, no thyromegaly Respiratory: + dullness to percussion; no respiratory distress, no labored breathing and no cough Auscultation: + diminished lung sounds Decreased at the left lung base. Cardiovascular: RRR, no murmur, no edema Gastrointestinal (Abdomen): normal bowel sounds, soft, nontender, no hepatosplenomegaly Musculoskeletal: Extremities: extremities normal to inspection Skin: no rashes, warm and dry Neurologic: Nonfocal exam Lymphatic: no cervical lymphadenopathy Results & Data Results & Data Vital Signs (Past 12 Hours) Vital Signs Temp Pulse Pulse Resp BP Pulse Ox O2 Del Method 11/20/23 10:44 Room Air 11/20/23 09:28 36.3 C L 60 18 133/72 92 Room Air 11/20/23 09:23 59 L 11/20/23 07:52 53 L 11/20/23 07:21 54 L 18 119/68 97 Nasal Cannula 11/20/23 06:00 62 18 108/68 97 Nasal Cannula 11/20/23 04:15 62 18 102/55 L 97 Nasal Cannula 11/20/23 02:37 56 L 19 99/60 L 95 Room Air O2 Flow Rate 11/20/23 10:44 11/20/23 09:28 11/20/23 09:23 11/20/23 07:52 11/20/23 07:21 2 11/20/23 06:00 2 11/20/23 04:15 2 11/20/23 02:37 Critical Care Results & Data Vital Signs (Past 12 Hours) Vital Signs Temp Pulse Pulse Resp BP Pulse Ox O2 Del Method 11/20/23 10:44 Room Air 11/20/23 09:28 36.3 C L 60 18 133/72 92 Room Air 11/20/23 09:23 59 L 11/20/23 07:52 53 L 11/20/23 07:21 54 L 18 119/68 97 Nasal Cannula 11/20/23 06:00 62 18 108/68 97 Nasal Cannula 11/20/23 04:15 62 18 102/55 L 97 Nasal Cannula 11/20/23 02:37 56 L 19 99/60 L 95 Room Air O2 Flow Rate 11/20/23 10:44 11/20/23 09:28 11/20/23 09:23 11/20/23 07:52 11/20/23 07:21 2 11/20/23 06:00 2 11/20/23 04:15 2 11/20/23 02:37 Lab & Micro Results (Past 24 Hours) RBC 4.06 M/uL (4.70-6.10) L 11/20/23 WBC 6.95 K/ul (4.8-10.8) 11/20/23 Hgb 12.5 g/dl (14.0-18.0) L 11/20/23 Hct 38.0 % (42.0-52.0) L 11/20/23 MCV 93.6 fL (80.0-100.0) 11/20/23 MCH 30.8 pg (25.0-34.0) 11/20/23 MCHC 32.9 g/dL (32.0-36.0) 11/20/23 RDW Standard Deviation 43.1 fL (36.4-46.3) 11/20/23 RDW Coefficient of Variation 12.5 % (11.5-14.5) 11/20/23 Plt Count 230 K/uL (130-400) 11/20/23 MPV 10.4 fL (9.4-12.4) 11/20/23 Neutrophils (%) (Auto) 65.4 % 11/20/23 Lymphocytes (%) (Auto) 18.8 % 11/20/23 Monocytes # (Auto) 0.72 K/uL (0.11-0.59) H 11/20/23 Eosinophils # (Auto) 0.29 K/uL (0.00-0.50) 11/20/23 Immature Granulocyte % (Auto) 0.3 % 11/20/23 Neutrophils # (Auto) 4.55 K/uL (1.40-6.50) 11/20/23 Lymphocytes # (Auto) 1.31 K/uL (1.20-3.40) 11/20/23 Monocytes # (Auto) 0.72 K/uL (0.11-0.59) H 11/20/23 Eosinophils # (Auto) 0.29 K/uL (0.00-0.50) 11/20/23 Basophils # (Auto) 0.06 K/uL (0.00-0.20) 11/20/23 Immature Granulocyte # (Auto) 0.02 K/uL (0.01-0.20) 4 Na 138 mmol/L (136-145) 11/20/23 K 4.4 mmol/L (3.5-5.1) 11/20/23 Cl 107 mmol/L (98-107) 11/20/23 CO2 24 mmol/L (21-32) 11/20/23 Anion Gap 7 (3-11) 11/20/23 BUN 25 mg/dl (6-23) H 11/20/23 Creatinine 1.89 mg/dl (0.6-1.4) H 11/20/23 Estimated GFR ( Amer) 38.8 ml/min 11/20/23 Estimated GFR (Non-Af Amer) 33.5 ml/min 11/20/23 BUN/Creatinine Ratio 13.2 (10-20) 11/20/23 Glu 105 mg/dl (70-99(Fasting)) H 11/20/23 Ca 8.6 mg/dl (8.6-10.3) 11/20/23 Total Bilirubin 0.4 mg/dl (0.2-1.0) 11/19/23 AST 21 U/L (13-39) 11/19/23 ALT 15 U/L (7-52) 11/19/23 Alkaline Phosphatase 98 U/L (34-104) 11/19/23 TP 7.3 gm/dl (6.0-8.3) 11/19/23 Albumin 4.4 gm/dl (3.4-5.0) 03/04/24 Globulin 2.9 gm/dl (2.5-4.0) 11/19/23 Albumin/Globulin Ratio 1.5 (0.9-2) 11/19/23 Mg 2.0 mg/dl (1.7-2.4) 11/20/23 03:37 Calcium Level 8.6 mg/dl (8.6-10.3) 11/20/23 03:37 Prothromb Time International Ratio 1.0 (0.9-1.1) 11/19/23 17:1 0 Diagnostic Findings (Past 24 Hours) Chest X-Ray 11/19/23 17:07 XR chest 1V not portable HISTORY: 78 years-old Male Chest pain, nonspecific COMPARISON: 11/09/2011 TECHNIQUE: AP view chest FINDINGS: Cardiac silhouette is enlarged. Right IJ Ulisew-m-Yuzs catheter is in place. No pneumothorax. Layering left greater than right pleural effusions with bibasilar consolidation. Pulmonary vascular congestion. Bilateral articulation with pulmonary nodules. Degenerative changes of the shoulders and spine. Lumbar spinal fusion hardware. IMPRESSION: 1. Cardiomegaly with pulmonary vascular congestion. 2. Layering pleural effusions with left greater than right bibasilar consolidation. 2. Bilateral pulmonary nodules are noted in addition to a right IJ Agukix-s-Ofew catheter. Correlate with oncologic history. ACT 112: Negative or not required by law. The above report was generated using voice recognition software. It may contain grammatical, syntax or spelling errors. Electronically signed by: Narendra Mckee M.D. 11/19/2023 5:35 PM Abdomen/Pelvis CT 11/19/23 23:19 Exam(s): CT ABDOMEN + PELVIS Without Contrast EXAM: CT Abdomen and Pelvis Without Intravenous Contrast CLINICAL HISTORY: Reason for exam: abdominal pain. hx of renal cancer. TECHNIQUE: Axial computed tomography images of the abdomen and pelvis without intravenous contrast. Automated exposure control was utilized for the study. A dose lowering technique was utilized adhering to the principles of ALARA. COMPARISON: No relevant prior studies available. FINDINGS: Lung bases: Unremarkable. No mass. No consolidation. ABDOMEN: Liver: Hepatic metastases. Gallbladder and bile ducts: Unremarkable. No calcified stones. No ductal dilation. Pancreas: Unremarkable. No ductal dilation. Spleen: Unremarkable. No splenomegaly. Adrenals: Unremarkable. No mass. Kidneys and ureters: Multiple renal cysts. LEFT nephrectomy, correlate for history of renal cell carcinoma. Stomach and bowel: Diverticulosis, without acute diverticulitis. No small bowel obstruction. No free intraperitoneal air. PELVIS: Appendix: No findings to suggest acute appendicitis. Bladder: Unremarkable. No stones. Reproductive: Vasectomy clips. ABDOMEN and PELVIS: Intraperitoneal space: Unremarkable. No free air. No significant fluid collection. Bones/joints: Degenerative changes of the spine. Multilevel posterior lumbar fusion hardware. No acute fracture. No dislocation. Soft tissues: Unremarkable. Vasculature: Atherosclerotic changes of the aorta. No abdominal aortic aneurysm. Lymph nodes: Enlarged retroperitoneal lymph nodes, preferentially located on the LEFT side of the aorta. Mild scarring between the spleen and LEFT hemidiaphragm. IMPRESSION: 1. Enlarged retroperitoneal lymph nodes, preferentially located on the LEFT side of the aorta. Mild scarring between the spleen and LEFT hemidiaphragm. 2. Hepatic metastases. 3. Multiple renal cysts. LEFT nephrectomy, correlate for history of renal cell carcinoma. 4. Diverticulosis, without acute diverticulitis. No small bowel obstruction. No free intraperitoneal air. Electronically signed by: Jason Hutchins MD 11/20/23 00:[address] 11/19/23 23:19 Exam(s): CT CHEST Without Contrast EXAM: CT Chest Without Intravenous Contrast CLINICAL HISTORY: Reason for exam: chest pain and sob. TECHNIQUE: Axial computed tomography images of the chest without intravenous contrast. Automated exposure control was utilized for the study. A dose lowering technique was utilized adhering to the principles of ALARA. COMPARISON: No relevant prior studies available. FINDINGS: Lungs: Multiple bilateral pulmonary nidus, consistent with metastasis. Correlate for primary malignancy. No consolidation. Pleural space: Large LEFT pleural effusion. No pneumothorax. Heart: Unremarkable. No cardiomegaly. No significant pericardial effusion. No significant coronary artery calcifications. Bones/joints: Degenerative changes of the spine. No acute fracture. No dislocation. Soft tissues: Unremarkable. Vasculature: Atherosclerotic changes of the aorta. No thoracic aortic aneurysm. Lymph nodes: Mild thickening/lymphadenopathy in the LEFT upper quadrant between the spleen and diaphragm, which is indeterminate. Evaluation limited without contrast. Liver: Hepatic metastasis are also present. IMPRESSION: 1. Multiple bilateral pulmonary nidus, consistent with metastasis. Correlate for primary malignancy. 2. Hepatic metastasis are also present. 3. Mild thickening/lymphadenopathy in the LEFT upper quadrant between the spleen and diaphragm, which is indeterminate. Evaluation limited without contrast. 4. Large LEFT pleural effusion. Electronically signed by: Jason Hutchins MD 11/20/23 00:12 AM Pulmonary Quantative Diff Nuc Med 11/20/23 08:00 NM lung perf cyn CLINICAL HISTORY: sob. PE? Technique: Perfusion imaging was performed in multiple projections after the intravenous injection of 5 mCi of Tc-99m labeled macroaggregated albumin (MAA). Comparison: Comparison is made to CT chest 11/19/2023 FINDINGS/IMPRESSION: Left-sided perfusion is significantly diminished in the posterior hemithorax, compatible with a large pleural effusion seen on CT. Against this background, no definite segmental defects are seen. ACT 112: Negative or not required by law. Electronically signed by: Franky Santos M.D. 11/20/2023 11:53 AM I & O Totals 24 Hours 11/19/23 11/20/23 11/21/23 06:59 06:59 06:59 Intake Total 0 / 0 Balance 0 / 0 Cumulative 11/19/23 16:48 thru 11/20/23 06:00 Intake Total 0 Balance 0 RT Ventilator Mngmt (Last Documented) Ventilator Ordered Settings Respiratory Rate 18 11/20/23 09:28 Ventilator - PT Measurements Respiratory Rate 18 PG Care Time/CCT Total # of Minutes Spent Total Time Spent with Patient: Total time spent is greater than 50% in coordination of care (as documented) at patient's floor/unit and/or counseling patient: Coding Level of Care Code 17541 INT INP/OBS CARE 3/75MIN Diagnoses Pleural effusion J90 Pulmonary nodule R91.1 SOB (shortness of breath) R06.02
[2023-11-20] MEDS: KETOROLAC TROMETHAMINE 15 MG/ML VIAL IV ONE (12:56)
--- NOTE | 2023-11-20 13:28 | Procedure Note ---
Procedure Note Date of Service November 20, 2023 Note Procedure: Diagnostic therapeutic ultrasound-guided catheter thoracentesis Last Trimmer: Dr. Arjun Menard Indication: Pleural effusion Consent: Signed by patient and verified with timeout prior to procedure Anesthesia: 8 mL's 1% lidocaine without epinephrine local. Procedure: Consent was verified and timeout performed. Appropriate imaging studies were reviewed prior to the procedure. Patient was placed in a seated position and limited thoracic ultrasound was performed of the left chest. A moderate-sized left effusion was noted with compressive atelectasis. Site appropriate for thoracentesis was selected. The skin was prepped and draped in normal sterile fashion. Lidocaine was used for local analgesia. Fluid was aspirated via the finder needle. A small skin ina was made with the scalpel and the catheter over the needle apparatus was advanced over the rib into the pleural space. Using the syringe one-way valve system, a total of 1400 mL's of bloody fluid was removed. Procedure was terminated due to inability to withdraw additional fluid. The catheter was removed and observed to be intact. A sterile dressing was applied. Post procedure chest x-ray was ordered. Postprocedural ultrasound demonstrated persistent lung sliding with small residual fluid collection in the left pleural space Fluid was sent for cytology, cell count differential, Gram stain and culture, LDH, pH, glucose, total protein. The patient tolerated the procedure well without obvious complication Coding CPT Codes Pulmonary/Thoracic - Pulmonary and Thoracic: 89175 Thoracentesis w imaging ([id number]) [facility] [place] Procedure Codes (Charges) Pulmonary/Thoracic Procedure 1: Pulmonary and Thoracic: 67843 Thoracentesis w imaging
--- NOTE | 2023-11-20 14:05 | XRay Report ---
XR chest 1V portable CLINICAL HISTORY: S/P Thoracentesis TECHNIQUE: Single frontal radiograph of the chest was obtained. Comparison: Comparison is made to chest radiograph 11/19/2023 FINDINGS: A port catheter is seen. Calcified aortic knob is seen. The lungs are clear. No evidence of pleural e ffusion or pneumothorax. IMPRESSION: Status post thoracentesis with resolution of left pleural effusion and no evidence of pneumothorax. ACT 112: Negative or not required by law. Electronically signed by: Franky Santos M.D. 11/20/2023 2:03 PM
[2023-11-20 14:18] LABS: Total Protein Pleural Fluid 4.4 gm/dl
[2023-11-20 14:58] LABS: Appearance Pleural Fluid Bloody; Color Pleural Fluid Red; Lymphocytes, Fluid 54 %; Mono,Macrophage,Mesothelial 12 %; Neutrophils, Fluid 34 %; RBC Pleural Fluid Auto 60000 /uL; Source Pleural Fluid Left Lung; WBC Pleural Fluid Auto 3774 /uL
[2023-11-20] MEDS: MULTIVITAMIN TAB PO SCH (20:25)
[2023-11-20] MEDS: ASPIRIN 81 MG ECTAB PO SCH (20:25)
[2023-11-20] MEDS: PANTOprazole 40 MG TAB PO SCH (20:26)
[2023-11-20] MEDS: DOXAZosin MESYLATE 4 MG TAB PO SCH (20:28)
[2023-11-20] MEDS: ATORVASTATIN 20 MG TAB PO SCH (20:29)
[2023-11-20] MEDS ORDERED: NON-FORMULARY MEDICATION (Omeprazole 20 mg Capsule,Delayed Release(Dr/Ec)) PO SCH (21:00)
--- NOTE | 2023-11-21 06:27 | Hospitalist Progress Note ---
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 Minimal exertion making very short of breath. Has some cough. No fevers. Shortness of breath Patient is on Keytruda for recurrence of renal cancer and worried could be side effect Possible pleural effusion chest x-ray CT chest shows: 1. Multiple bilateral pulmonary nidus, consistent with metastasis. Correlate for primary malignancy. 2. Hepatic metastasis are also present. 3. Mild thickening/lymphadenopathy in the LEFT upper quadrant between the spleen and diaphragm, which is indeterminate. Evaluation limited without contrast. 4. Large LEFT pleural effusion. Consulted pulmonary medicine - pt is now s/p L thoracentesis Pt feels well after the procedure. Denies any more chest pains or shortness of breath, and was just walking laps in hallway May need to discuss with the elsa Perez Echocardiogram obtained -LV normal in size. Mild concentric LVH. LV wall motion is normal. EF 60 to 65%. Aortic valve sclerosis moderate, without significant aortic valvular stenosis. There is trace mitral regurg. There is trace tricuspid regurg. Doppler findings do not suggest pulmonary hypertension. Closely monitor Chest pains, secondary to above, now resolved EKG and troponin okay serial enzymes and echo, as above Hyperlipidemia On statin GERD Omeprazole BPH On doxazosin CKD stage III Presented creatinine of 2.1 Baseline creatinine seems to around 1.7-2 Will follow labs Transitional cell renal carcinoma on the left side S/p nephrectomy Recurrence Currently on Keytruda Follows with Dr. Ana Todd DVT prophylaxis Heparin subcu Disposition Telemetry Full code as per admitting provider discussion with patient Admission and Anticipated Discharge Date Admission Date: November 19, 2023 Subjective Pt seen in follow up of pl. effusion, hx of metastatic renal cancer, on Keytruda, follows w/ Dr. Perez No s/p thoracentesis by pulm. medicine Laying in bed, feeling well No chest pain, or shortness of breath. Says he was just walking laps in hallway Review of Systems Review of Systems: All systems reviewed & are unremarkable except as noted in Subjective Physical Exam Physical Exam: General- WD/WN eld erly M in NAD Hea d- atraumatic Ey es- PERRL ENT- or opharynx clear Ne ck- supple, no JVD . Lungs- clear to auscultation mild bibasilar crackle s, no wheezing He art- regular rhyth m; no murmur, no g allop. Abdomen- n ormal bowel sounds , soft, nontender, no distension. E xtremities- no pre tibial edema, no e rythema seen. Billie ro- alert, oriente d PERRL, no facia l palsy; no dysart hria; moves extrem ities. Skin- warm & dry Results & Data Results & Data Vital Signs (Past 12 Hours) Vital Signs Temp Pulse Pulse Resp BP Pulse Ox O2 Del Method 11/21/23 03:58 36.6 C 53 L 18 117/69 93 Room Air 11/20/23 23:11 36.6 C 63 18 102/58 L 95 Room Air 11/20/23 22:15 Room Air 11/20/23 21:58 63 11/20/23 19:53 36.7 C 61 18 126/72 91 Room Air
--- NOTE | 2023-11-21 07:35 | Electrocardiogram Report ---
Test Reason : Blood Pressure : / mmHG Vent. Rate : 055 BPM Atrial Rate : 055 BPM P-R Int : 132 ms QRS Dur : 092 ms QT Int : 432 ms P-R-T Axes : 033 026 059 degrees QTc Int : 413 ms Sinus bradycardia Otherwise normal ECG When compared with ECG of 20-NOV-2023 10:25, No significant change was found Confirmed by Vincenzo Francois ([id number]) on 11/21/2023 7:35:31 AM Referred By: REFERRED SELF Confirmed By:Vincenzo Francois
[2023-11-21 08:10] LABS: Hematocrit (blood only) 38.9 % (42.0-52.0); Hemoglobin 12.8 g/dl (14.0-18.0); Mean Corpuscular Hemoglobin 30.3 pg (25.0-34.0); Mean Corpuscular Hgb Conc 32.9 g/dL (32.0-36.0); Mean Corpuscular Volume 92.2 fL (80.0-100.0); Mean Platelet Volume 10.3 fL (9.4-12.4); Platelet Count 230 K/uL (130-400); RDW Coefficient of Variation 12.5 % (11.5-14.5); RDW Standard Deviation 42.2 fL (36.4-46.3); Red Blood Count 4.22 M/uL (4.70-6.10); White Blood Count 7.56 K/ul (4.8-10.8)
[2023-11-21 08:17] LABS: BUN Creatinine Ratio 14.5 (10-20); Calcium 8.5 mg/dl (8.6-10.3); Creatinine Clr Calc Pharmacy 31.9 ml/min; Est GFR (African American) 41.4 ml/min; Est GFR (Non-African American) 35.8 ml/min; Phosphorus 3.3 mg/dl (2.5-4.9); Potassium 4.8 mmol/L (3.5-5.1)
--- NOTE | 2023-11-21 11:16 | Pulmonology Progress Note ---
Date of Service November 21, 2023 Assessment & Plan (1) Pleural effusion: (2) Pulmonary nodule: (3) SOB (shortness of breath): Plan Impression: 78-year-old male with metastatic renal cell carcinoma but without known history of pulmonary involvement presents now with multiple pulmonary nodules and pleural effusion and shortness of breath. Recommendations: 1. Pleural effusion: Reviewed with cytology and pathology. There do appear to be malignant cells present. This likely represents spread of the patient's known metastatic transitional cell carcinoma. Formal pathology read pending. He will need to follow-up soon as possible with his medical oncologist as his current chemotherapy appears to be ineffectual. If the effusion reaccumulates, could consider additional interventions including serial thoracentesis or Pleurx catheter placement. 2. Multiple pulmonary nodules: These are new compared to his prior PET scan from a few months ago and undoubtedly represent metastatic spread of his known transitional cell carcinoma. 3. Dyspnea: W resolved The above recommendations and plan were extensively discussed with the patient. His pulmonary issues are resolved at this point in time and pulmonary will sign off. Recommend the patient be dismissed from the hospital with urgent outpatient follow-up with his medical oncologist Admission and Anticipated Discharge Date Admission Date: November 19, 2023 Subjective Patient seen and examined. EMR reviewed. The patient states his breathing is better since undergoing thoracentesis. He is anxious to be dismissed from the hospital. He is not coughing wheezing or expectorating any phlegm. Postprocedure chest x-ray demonstrated no complications. Review of Systems Review of Systems: All systems reviewed & are unremarkable except as noted in Subjective Physical Exam Constitutional: WD/WN, vitals as above Neck: trachea midline, no thyromegaly Respiratory: + dullness to percussion; no respiratory distress, no labored breathing and no cough Auscultation: + diminished lung sounds Cardiovascular: RRR, no murmur, no edema Gastrointestinal (Abdomen): normal bowel sounds, soft, nontender, no hepatosplenomegaly Musculoskeletal: Extremities: extremities normal to inspection Skin: no rashes, warm and dry Lymphatic: no cervical lymphadenopathy Results & Data Results & Data Vital Signs (Past 12 Hours) Vital Signs Temp Pulse Pulse Resp BP BP Pulse Ox 11/21/23 09:23 56 L 11/21/23 07:36 36.7 C 59 L 18 115/71 92 11/21/23 07:23 11/21/23 03:58 36.6 C 53 L 18 117/69 93 O2 Del Method 11/21/23 09:23 11/21/23 07:36 Room Air 11/21/23 07:23 Room Air 11/21/23 03:58 Room Air Diagnostic Findings Post procedure thoracentesis demonstrated no pneumothorax with improved aeration PG Care Time/CCT Total # of Minutes Spent Total Time Spent with Patient: Total time spent is greater than 50% in coordination of care (as documented) at patient's floor/unit and/or counseling patient: Coding Level of Care Code 20818 SUB INP/OBS CARE 3/50MIN Diagnoses Pleural effusion J90 Pulmonary nodule R91.1 SOB (shortness of breath) R06.02
--- NOTE | 2023-11-21 13:39 | Discharge Summary ---
Discharge Summary Date of Service November 21, 2023 Notes For Next Care Provider Per Hand Engraver, Dr Arjun Menard: "Pleural effusion: Reviewed with cytology and pathology. There do appear to be malignant cells present. This likely represents spread of the patient's known metastatic transitional cell carcinoma. Formal pathology read pending. He will need to follow-up soon as possible with his medical oncologist as his current c hemotherapy appears to be ineffectual. If the effusion reaccumulates, could consider additional interventions including serial thoracentesis or Pleurx catheter placement. 2. Multiple pulmonary nodules: These are new compared to his prior PET scan from a few months ago and undoubtedly represent metastatic spread of his known transitional cell carcinoma." Please ensure close follow up with Oncology. 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 Minimal exertion making very short of breath. Has some cough. No fevers. Has lower abdominal pain. No headache. No blurred visions. No runny nose or sore throat. Appetite is okay. No nausea. No diarrhea or constipation. No blood in stools. Normal bladder movements. Hemodynamics are okay. Past medical history. As mentioned above Past surgical history. Appendectomy. Bladder instillation. Cystoscopy with lithotripsy. Cystoscopy and stent placement. Cystoscopy for treatment of bladder tumor. Cystourethroscopy with biopsy. Leg stents. Robotic laparoscopic left nephrectomy. Lumbar surgery. Kidney stone. TURP. Social history. . Quit smoking 2001. Smoked 3 packs a day for 33 years. Alcohol rarely. No drug use Family history. Brother had a heart attack. Mother had stomach aneurysm. Paternal aunt had stomach aneurysm Admission Exam Per Admitting Provider General- Not in distress Head- atraumatic Eyes- PERRL ENT- oropharynx clear Neck- supple, no JVD. Lungs- clear to auscultation mild bibasilar crackles, no wheezing Heart- regular rhythm; no murmur, no gallop. Abdomen- normal bowel sounds, soft, nontender, no distension. Extremities- no pretibial edema, no erythema seen. Neuro- alert, oriented PERRL, no facial palsy; no dysarthria; moves extremities. 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 Shortness of breath Patient is on Keytruda for recurrence of renal cancer and worried could be side effect Possible pleural effusion chest x-ray CT chest noting multiple pulmonary nodules, hepatic metastasis, large LEFT pleural effusion Pulmonology consulted, appreciate recs -s/p L thoracentesis on 11/20 -per pulmonology, "1.Pleural effusion: Reviewed with cytology and pathology. There do appear to be malignant cells present. This likely represents spread of the patient's known metastatic transitional cell carcinoma. Formal pathology read pending. He will need to follow-up soon as possible with his medical oncologist as his current chemotherapy appears to be ineffectual. If the effusion reaccumulates, could consider additional interventions including serial thoracentesis or Pleurx catheter placement. 2. Multiple pulmonary nodules: These are new compared to his prior PET scan from a few months ago and undoubtedly represent metastatic spread of his known transitional cell carcinoma" Echocardiogram obtained -LV normal in size. Mild concentric LVH. LV wall motion is normal. EF 60 to 65%. Aortic valve sclerosis moderate, without significant aortic valvular stenosis. There is trace mitral regurg. There is trace tricuspid regurg. Doppler findings do not suggest pulmonary hypertension. Pt's oncologist Dr. Perez contacted directly as well as his office- state that they will reach out to pt to schedule follow up appointment. Pt notes that he has an upcoming treatment appointment in a few days but is aware that given the changes noted, treatment will need to be re-evaluated. Please ensure close follow up with Oncology. Chest pains secondary to above, now resolved hs-trop x3 wnl EKG with sinus bradycardia Echo as above Hyperlipidemia On statin, continue GERD On omeprazole, continue BPH On doxazosin, continue CKD stage III Presented with creatinine of 2.1 Baseline creatinine seems to around 1.7-2 Cr at baseline 1.79 on discharge Transitional cell renal carcinoma on the left side S/p nephrectomy Recurrence Currently on Keytruda, will need treatment plan re-assessment given metastasis above per pulmonology recs Follows with Rolf lamb-onc, Dr. Perez Pt's oncologist Dr. Perez contacted directly as well as his office- state that they will reach out to pt to schedule follow up appointment. Pt notes that he has an upcoming treatment appointment in a few days but is aware that given the changes noted, treatment will need to be re-evaluated. Please ensure close follow up with Oncology. Discharge Exam General: Alert, oriented. No acute distress Skin: No noted rashes or bruises Psych: Appropriate mood and affect Neuro: No gross deficits HEENT: NC/AT Chest: Nontender to palpation. CV: RRR Resp: Breath sounds clear bilaterally, no increased effort of breathing. Abdomen: Soft, nontender, nondistended. Extremities: No edema in lower extremities bilaterally. Updated Medication List Medication Instructions Recorded Confirmed Type aspirin 81 mg tablet,delayed 81 mg PO QPM 11/19/23 11/19/23 History release atorvastatin 20 mg tablet 20 mg PO QPM 11/19/23 11/19/23 History diclofenac sodium 1 % topical gel 2 g topical QID PRN Pain 11/19/23 11/19/23 History doxazosin 4 mg tablet 4 mg PO QPM 11/19/23 11/19/23 History doxycycline hyclate 100 mg capsule 100 mg PO BID PRN LYME FLARE-UPS 11/19/23 11/19/23 History famotidine 40 mg tablet 40 mg PO HS PRN 11/19/23 11/19/23 History HEARTBURN/INDIGESTION gabapentin 600 mg tablet See Rx Instructions .Route .COMPLEX 11/19/23 11/19/23 History lidocaine 5 % topical patch 1 patch topical DAILY PRN Pain 11/19/23 11/19/23 History lidocaine-prilocaine 2.5 %-2.5 % 1 applic topical DIRECTED PRN 1 11/19/23 11/19/23 History topical cream HR PRIOR TO MEDIPORT ACCESS modafinil 100 mg tablet 100 mg PO DIRECTED PRN Fatigue 11/19/23 11/19/23 History multivitamin 1 tab PO QPM 11/19/23 11/19/23 History omeprazole 20 mg capsule,delayed 20 mg PO QPM 11/19/23 11/19/23 History release ondansetron HCl 8 mg tablet 8 mg PO Q8H PRN NAUSEA/VOMITING 11/19/23 11/19/23 History prochlorperazine maleate 10 mg 10 mg PO Q6H PRN NAUSEA/VOMITING 11/19/23 11/19/23 History tablet (Compazine) tramadol 50 mg tablet 50 mg PO Q8H PRN Pain 11/19/23 11/19/23 History Hospital Stay Data Consultations 11/19/23 20:20 ED Decision to Admit Stat 11/20/23 07:18 Consult Pulmonology Routine Diagnostic Imagining Performed 11/19/23 23:19 CT Abd and Pelvis [CT abd pelvis wo con] Urgent CT chest diagnostic wo con Urgent Chest X-Ray 11/19/23 17:07 XR chest 1V not portable HISTORY: 78 years-old Male Chest pain, nonspecific COMPARISON: 11/09/2011 TECHNIQUE: AP view chest FINDINGS: Cardiac silhouette is enlarged. Right IJ [id number] catheter is in place. No pneumothorax. Layering left greater than right pleural effusions with bibasilar consolidation. Pulmonary vascular congestion. Bilateral articulation with pulmonary nodules. Degenerative changes of the shoulders and spine. Lumbar spinal fusion hardware. IMPRESSION: 1. Cardiomegaly with pulmonary vascular congestion. 2. Layering pleural effusions with left greater than right bibasilar consolidation. 2. Bilateral pulmonary nodules are noted in addition to a right IJ Iaeipc-k-[id number] catheter. Correlate with oncologic history. ACT 112: Negative or not required by law. The above report was generated using voice recognition software. It may contain grammatical, syntax or spelling errors. Electronically signed by: Narendra Mckee M.D. 11/19/2023 5:35 PM Abdomen/Pelvis CT 03/04/24 23:19 Exam(s): CT ABDOMEN + PELVIS Without Contrast EXAM: CT Abdomen and Pelvis Without Intravenous Contrast CLINICAL HISTORY: Reason for exam: abdominal pain. hx of renal cancer. TECHNIQUE: Axial computed tomography images of the abdomen and pelvis without intravenous contrast. Automated exposure control was utilized for the study. A dose lowering technique was utilized adhering to the principles of ALARA. COMPARISON: No relevant prior studies available. FINDINGS: Lung bases: Unremarkable. No mass. No consolidation. ABDOMEN: Liver: Hepatic metastases. Gallbladder and bile ducts: Unremarkable. No calcified stones. No ductal dilation. Pancreas: Unremarkable. No ductal dilation. Spleen: Unremarkable. No splenomegaly. Adrenals: Unremarkable. No mass. Kidneys and ureters: Multiple renal cysts. LEFT nephrectomy, correlate for history of renal cell carcinoma. Stomach and bowel: Diverticulosis, without acute diverticulitis. No small bowel obstruction. No free intraperitoneal air. PELVIS: Appendix: No findings to suggest acute appendicitis. Bladder: Unremarkable. No stones. Reproductive: Vasectomy clips. ABDOMEN and PELVIS: Intraperitoneal space: Unremarkable. No free air. No significant fluid collection. Bones/joints: Degenerative changes of the spine. Multilevel posterior lumbar fusion hardware. No acute fracture. No dislocation. Soft tissues: Unremarkable. Vasculature: Atherosclerotic changes of the aorta. No abdominal aortic aneurysm. Lymph nodes: Enlarged retroperitoneal lymph nodes, preferentially located on the LEFT side of the aorta. Mild scarring between the spleen and LEFT hemidiaphragm. IMPRESSION: 1. Enlarged retroperitoneal lymph nodes, preferentially located on the LEFT side of the aorta. Mild scarring between the spleen and LEFT hemidiaphragm. 2. Hepatic metastases. 3. Multiple renal cysts. LEFT nephrectomy, correlate for history of renal cell carcinoma. 4. Diverticulosis, without acute diverticulitis. No small bowel obstruction. No free intraperitoneal air. Electronically signed by: Jason Hutchins MD 11/20/23 00:[address] 11/19/23 23:19 Exam(s): CT CHEST Without Contrast EXAM: CT Chest Without Intravenous Contrast CLINICAL HISTORY: Reason for exam: chest pain and sob. TECHNIQUE: Axial computed tomography images of the chest without intravenous contrast. Automated exposure control was utilized for the study. A dose lowering technique was utilized adhering to the principles of ALARA. COMPARISON: No relevant prior studies available. FINDINGS: Lungs: Multiple bilateral pulmonary nidus, consistent with metastasis. Correlate for primary malignancy. No consolidation. Pleural space: Large LEFT pleural effusion. No pneumothorax. Heart: Unremarkable. No cardiomegaly. No significant pericardial effusion. No significant coronary artery calcifications. Bones/joints: Degenerative changes of the spine. No acute fracture. No dislocation. Soft tissues: Unremarkable. Vasculature: Atherosclerotic changes of the aorta. No thoracic aortic aneurysm. Lymph nodes: Mild thickening/lymphadenopathy in the LEFT upper quadrant between the spleen and diaphragm, which is indeterminate. Evaluation limited without contrast. Liver: Hepatic metastasis are also present. IMPRESSION: 1. Multiple bilateral pulmonary nidus, consistent with metastasis. Correlate for primary malignancy. 2. Hepatic metastasis are also present. 3. Mild thickening/lymphadenopathy in the LEFT upper quadrant between the spleen and diaphragm, which is indeterminate. Evaluation limited without contrast. 4. Large LEFT pleural effusion. Electronically signed by: Jason Hutchins MD 11/20/23 00:12 AM Pulmonary Quantative Diff Nuc Med 11/20/23 08:00 NM lung perf cyn CLINICAL HISTORY: sob. PE? Technique: Perfusion imaging was performed in multiple projections after the intravenous injection of 5 mCi of Tc-99m labeled macroaggregated albumin (MAA). Comparison: Comparison is made to CT chest 11/19/2023 FINDINGS/IMPRESSION: Left-sided perfusion is significantly diminished in the posterior hemithorax, compatible with a large pleural effusion seen on CT. Ag ainst this background, no definite segmental defects are seen. ACT 112: Negative or not required by law. Electronically signed by: Franky Santos M.D. 11/20/2023 11:53 AM Chest X-Ray 11/20/23 13:29 XR chest 1V portable CLINICAL HISTORY: S/P Thoracentesis TECHNIQUE: Single frontal radiograph of the chest was obtained. Comparison: Comparison is made to chest radiograph 11/19/2023 FINDINGS: A port catheter is seen. Calcified aortic knob is seen. The lungs are clear. No evidence of pleural effusion or pneumothorax. IMPRESSION: Status post thoracentesis with resolution of left pleural effusion and no evidence of pneumothorax. ACT 112: Negative or not required by law. Electronically signed by: Franky Santos M.D. 11/20/2023 2:03 PM Pending Results Patient Have Any Pending Studies at Discharge: No Discharge Instructions Given to Patient (Per Discharging Provider) Mr. Rosne, You were admitted and treated for shortness of breath. The pet technologist is recommending discharge but close followup with your oncologist as it appears that your cancer is spreading. We were in touch with your primary care provider and they indicated they would reach out to you to schedule an appointment. Please contact them if you have not heard from them by next week. We were also in touch with Dr. Perez's office, and they are working on an appointment for you. Please do not hesitate to come back to the emergency room if your symptoms worsen or return. It was a pleasure taking care of you while you were here. Total Time Total Time Spent Total Time Spent (In Minutes): > 30 minutes
== END 2023-11-21 13:57 | disposition home or self-care (01) | DRG 687 ==
LOC: ED 16:48 → SUATTDRO 22:36 → EDINP 22:36 → 2N 23:19

== ENCOUNTER 2024-04-28 09:16 | Inpatient (IN) ==
[2024-04-28 10:40] LABS: Basophils # (auto) 0.05 K/uL (0.00-0.20); Basophils % (auto) 0.4 %; Eosinophils # (auto) 0.14 K/uL (0.00-0.50); Eosinophils % (auto) 1.1 %; Hemoglobin 13.5 g/dl (14.0-18.0); Immature Granulocytes # (auto) 0.11 K/uL (0.01-0.20); Immature Granulocytes % (auto) 0.8 %; Lymphocytes % (auto) 7.6 %; Mean Corpuscular Hemoglobin 28.3 pg (25.0-34.0); Mean Corpuscular Hgb Conc 32.1 g/dL (32.0-36.0); Mean Corpuscular Volume 88.1 fL (80.0-100.0); Monocytes # (auto) 1.33 K/uL (0.11-0.59); Neutrophils # (auto) 10.61 K/uL (1.40-6.50); Neutrophils % (auto) 80.1 %; Platelet Count 353 K/uL (130-400); RDW Coefficient of Variation 16.7 % (11.5-14.5); RDW Standard Deviation 53.2 fL (36.4-46.3); Red Blood Count 4.77 M/uL (4.70-6.10); White Blood Count 13.24 K/ul (4.8-10.8)
[2024-04-28 10:41] LABS: Appearance Urine Clear (Clear); Bilirubin Urine Negative (Negative); Blood Urine Negative (Negative); Color Urine Yellow; Glucose Urine UA Negative (Negative); Ketones Urine 1+ (Negative); Leukocyte Esterase Urine Negative (Negative); Nitrite Urine Negative (Negative); Protein Urine Negative (Negative); Specific Gravity Urine 1.017 (1.000-1.030); Urobilinogen Urine Negative (Negative); pH Urine 6.5 (4.5-7.5)
[2024-04-28 10:54] LABS: Albumin Globulin Ratio 1.1 (0.9-2); Albumin Level 3.2 gm/dl (3.4-5.0); BUN Creatinine Ratio 23.5 (10-20); Bilirubin,Total 0.7 mg/dl (0.2-1.0); Calcium 9.8 mg/dl (8.6-10.3); Creatinine Clr Calc Pharmacy 42.8 ml/min; Est GFR (African American) 67.4 ml/min; Est GFR (Non-African American) 58.2 ml/min; Potassium 4.9 mmol/L (3.5-5.1); Total Protein 6.2 gm/dl (6.0-8.3)
[2024-04-28 10:59] LABS: Troponin I High Sensitivity 12.3 pg/ml (0-20)
[2024-04-28] MEDS: HYDROmorphone INJ 0.5 MG/0.5 ML SYR IV STA (11:05)
--- NOTE | 2024-04-28 11:13 | Emergency Department Note ---
Impression & Plan SOB (shortness of breath), Congestive heart failure ED Provider Note NAME: PIETER ZIEGLER III AGE: 79 SEX: M : 1945 ARRIVES VIA: Ambulance INFORMANT: Patient, ED PROVIDER(S): Joao Perez MD CHIEF COMPLAINT: Shortness of breath, right-sided abdominal pain HPI: This is a 79-year-old male presenting for shortness of breath. Patient notes that he has had worsening of his symptoms over the past few days to weeks. He notes a history of bladder, kidney and lung cancer. He actually missed his most recent chemo treatments due to inflammatory breath and generally weak/unwell. He notes at this time he is having shortness of breath that is worsening over the past few days. It is a slight pain in his right lower chest as well. No other nausea, vomiting or fevers. He notes exertional dyspnea, leg swelling. No leg pain. ROS: See above HPI for pertinent positives & negatives. A total of 10 systems reviewed and were otherwise negative. PAST MEDICAL HISTORY: See Below PAST SURGICAL HISTORY: See Below FAMILY HISTORY: See Below SOCIAL HISTORY: See Below HOME MEDICATIONS: See Below ALLERGIES: See Below VITALS: See Below PHYSICAL EXAMINATION: General: Chronically ill-appearing, weak Head: Normocephalic and atraumatic Eyes: Normal inspection, extraocular muscles intact Ear, nose, throat: Normal external exam Neck: Normal range of motion Respiratory: Crackles at bilateral bases Cardiovascular: Regular rate/rhythm, no murmur GI: soft, nontender, no guarding or rebound Extremities: nontender, moves all extremities Neuro: The patient awake and alert, appropriately conversive, no focal deficits, symmetric faces Skin: Warm, dry, and intact MEDICAL DECISION MAKING: This is a 79-year-old male present for shortness of breath. Considered PE, pneumonia, CHF/fluid overload -ECG independently interpreted by me with normal sinus rhythm, rate of 89, normal axis, normal IL, normal QRS, normal QTc, no ST segment elevations consistent with STEMI criteria -Chest x-ray implanter by me reveals focal opacities concerning for multifocal pneumonia or metastases -Blood was reviewed showing leukocytosis at 13.24. Otherwise BNP is elevated to 10, negative troponin. Urinalysis reassuring. No respiratory infection on upper respiratory panel -Patient does have pitting edema to bilateral feet. Consider CHF is a 20 etiology for his shortness of breath. Also consider worsening metastases as possible etiology. -Discussed care with hospitalist service, Rolf, for admission. Differential diagnosis: See above ER treatment provided: See below Independent History obtained from: Diagnostics interpreted by me: ECG: See above Cardiac Monitoring: An order was placed for continuous cardiac monitoring. The monitor shows a rate of 84 with sinus rhythm. Laboratory studies: As stated above and show below. Imaging studies: See below. Past Med/Surg History Problem List (Updated 04/28/24 @ 19:21 by Joao Perez MD) Congestive heart failure (Acute) Hypertension (Chronic) Pulmonary nodule SOB (shortness of breath) (Acute) Chronic low back pain (Chronic) Medical History (Updated 04/28/24 @ 19:21 by Joao Perez MD) BPH (benign prostatic hyperplasia) Pleural effusion Hypercholesteremia Peripheral arterial disease Transitional cell carcinoma Surgical History (Updated 04/28/24 @ 15:02 by Mayela Fu PA-C) S/P angioplasty with stent S/P lumbar spinal fusion History of appendectomy History of nephroureterectomy left Family History Other Heart disease Social History Smoking Status: Never smoker Second Hand Exposure: No; Do You Dip or Chew Tobacco: No; Tobacco Cessation Education Requested by Patient: No Hx Alcohol Use: No Hx Substance Use: No Preferred Language: Honduran Communication Ability: Effective Dressmaker Helper Required: No Beliefs That Will Affect Care: None Current Living Situation: Spouse Current Living Situation Comment: house Other Information That Helps Us Care for You: No Feels Safe at Home: Yes Safety Concerns: Feels Safe At This Time Assistive Devices: Cane, Denture - Upper, Denture - Lower and Scooter/Electric Scooter Assistive Devices Comment: cane at home, electric wheel chair when out of the home Allergies Allergies Allergy/AdvReac Type Severity Reaction Status Date / Time lisinopril Allergy Severe LIP EDEMA Verified 11/28/23 19:39 Home Meds Home Medications Medication Instructions Recorded Confirmed gabapentin 600 mg tablet 600 mg PO BID 11/19/23 04/28/24 lidocaine 5 % topical patch 1 patch topical DAILY PRN Pain 11/19/23 04/28/24 lidocaine-prilocaine 2.5 %-2.5 % 1 applic topical DIRECTED PRN 1 11/19/23 04/28/24 topical cream HR PRIOR TO MEDIPORT ACCESS ondansetron HCl 8 mg tablet 8 mg PO Q8H PRN NAUSEA/VOMITING 11/19/23 04/28/24 tramadol 50 mg tablet 50 mg PO Q8H PRN Pain 11/19/23 04/28/24 megestrol 625 mg/5 mL (125 mg/mL) 5 ml PO DAILY 04/28/24 04/28/24 oral suspension tamsulosin 0.4 mg capsule 0.4 mg PO HS 04/28/24 04/28/24 Results & Data (ED) Vital Signs Vital Signs - 24 hr 04/28/24 09:10 04/28/24 09:10 04/28/24 09:10 Temperature 36.8 C 36.8 C Temperature Source Oral Oral Pulse Rate 93 H Pulse Rate [Apical] 93 H Pulse Rate from SpO2 Sensor Pulse Rhythm [Apical] Respiratory Rate 20 19 Respiratory Effort / Characteristics Spontaneous Spontaneous Respiratory Pattern Regular Blood Pressure 135/91 Blood Pressure [Right Arm] 135/91 Blood Pressure Mean 105 Blood Pressure Mean [Right Arm] 105 Blood Pressure Position Semi-fowlers Blood Pressure Position [Right Arm] Semi-fowlers Pulse Oximetry 95 95 95 Oxygen Delivery Method Room Air Room Air Room Air Sepsis Recent Fever Within 48 Hours No Sepsis New/Unexplained Change in Mental Status N/A Sepsis Action Taken by Nursing No Action Required 04/28/24 09:10 04/28/24 09:26 04/28/24 09:30 Temperature Temperature Source Pulse Rate 933 H 90 Pulse Rate [Apical] Pulse Rate from SpO2 Sensor 92 H Pulse Rhythm [Apical] Respiratory Rate 19 18 Respiratory Effort / Characteristics Respiratory Pattern Blood Pressure 138/87 Blood Pressure [Right Arm] Blood Pressure Mean 105 Blood Pressure Mean [Right Arm] Blood Pressure Position Blood Pressure Position [Right Arm] Pulse Oximetry 95 94 Oxygen Delivery Method Room Air Sepsis Recent Fever Within 48 Hours Sepsis New/Unexplained Change in Mental Status Sepsis Action Taken by Nursing 04/28/24 09:40 04/28/24 09:50 04/28/24 09:57 Temperature Temperature Source Pulse Rate 90 91 H Pulse Rate [Apical] Pulse Rate from SpO2 Sensor 91 H Pulse Rhythm [Apical] Respiratory Rate 17 21 Respiratory Effort / Characteristics Respiratory Pattern Blood Pressure 128/94 135/91 Blood Pressure [Right Arm] Blood Pressure Mean 108 96 Blood Pressure Mean [Right Arm] Blood Pressure Position Blood Pressure Position [Right Arm] Pulse Oximetry 93 93 Oxygen Delivery Method Sepsis Recent Fever Within 48 Hours Sepsis New/Unexplained Change in Mental Status Sepsis Action Taken by Nursing 04/28/24 10:00 04/28/24 10:28 04/28/24 10:30 Temperature Temperature Source Pulse Rate 91 H 84 85 Pulse Rate [Apical] Pulse Rate from SpO2 Sensor Pulse Rhythm [Apical] Respiratory Rate 21 20 20 Respiratory Effort / Characteristics Respiratory Pattern Blood Pressure 144/91 H 142/88 H Blood Pressure [Right Arm] Blood Pressure Mean 117 118 Blood Pressure Mean [Right Arm] Blood Pressure Position Blood Pressure Position [Right Arm] Pulse Oximetry 93 95 96 Oxygen Delivery Method Room Air Sepsis Recent Fever Within 48 Hours Sepsis New/Unexplained Change in Mental Status Sepsis Action Taken by Nursing 04/28/24 11:00 04/28/24 11:30 04/28/24 12:10 Temperature Temperature Source Pulse Rate 69 72 68 Pulse Rate [Apical] Pulse Rate from SpO2 Sensor Pulse Rhythm [Apical] Respiratory Rate 15 15 15 Respiratory Effort / Characteristics Respiratory Pattern Blood Pressure 130/81 127/81 134/81 Blood Pressure [Right Arm] Blood Pressure Mean 96 94 109 Blood Pressure Mean [Right Arm] Blood Pressure Position Blood Pressure Position [Right Arm] Pulse Oximetry 95 94 94 Oxygen Delivery Method Sepsis Recent Fever Within 48 Hours Sepsis New/Unexplained Change in Mental Status Sepsis Action Taken by Nursing 04/28/24 12:33 04/28/24 12:48 04/28/24 13:00 Temperature Temperature Source Pulse Rate 71 69 Pulse Rate [Apical] 75 Pulse Rate from SpO2 Sensor 71 69 Pulse Rhythm [Apical] Regular Respiratory Rate 10 L 12 19 Respiratory Effort / Characteristics Respiratory Pattern Blood Pressure 135/82 135/85 Blood Pressure [Right Arm] 142/90 H Blood Pressure Mean 99 101 Blood Pressure Mean [Right Arm] 107 Blood Pressure Position Blood Pressure Position [Right Arm] Semi-fowlers Pulse Oximetry 93 94 94 Oxygen Delivery Method Room Air Sepsis Recent Fever Within 48 Hours Sepsis New/Unexplained Change in Mental Status Sepsis Action Taken by Nursing 04/28/24 13:10 Temperature Temperature Source Pulse Rate 75 Pulse Rate [Apical] Pulse Rate from SpO2 Sensor Pulse Rhythm [Apical] Respiratory Rate 14 Respiratory Effort / Characteristics Respiratory Pattern Blood Pressure 142/90 H Blood Pressure [Right Arm] Blood Pressure Mean 117 Blood Pressure Mean [Right Arm] Blood Pressure Position Blood Pressure Position [Right Arm] Pulse Oximetry 95 Oxygen Delivery Method Room Air Sepsis Recent Fever Within 48 Hours Sepsis New/Unexplained Change in Mental Status Sepsis Action Taken by Nursing Laboratory Data 04/28/24 10:14 04/28/24 10:14 Lab Results 04/28/24 04/28/24 Range/Units 10:14 10:22 WBC 13.24 H (4.8-10.8) K/ul RBC 4.77 (4.70-6.10) M/uL Hgb 13.5 L (14.0-18.0) g/dl Hct 42.0 (42.0-52.0) % MCV 88.1 (80.0-100.0) fL MCH 28.3 (25.0-34.0) pg MCHC 32.1 (32.0-36.0) g/dL RDW Std Deviation 53.2 H (36.4-46.3) fL RDW Coeff of Karlene 16.7 H (11.5-14.5) % Plt Count 353 (130-400) K/uL MPV 10.0 (9.4-12.4) fL Immature Gran % (Auto) 0.8 % Neut % (Auto) 80.1 % Lymph % (Auto) 7.6 % [place] % (Auto) 10.0 % Eos % (Auto) 1.1 % Baso % (Auto) 0.4 % Neut # (Auto) 10.61 H (1.40-6.50) K/uL Lymph # (Auto) 1.00 L (1.20-3.40) K/uL [place] # (Auto) 1.33 H (0.11-0.59) K/uL Eos # (Auto) 0.14 (0.00-0.50) K/uL Baso # (Auto) 0.05 (0.00-0.20) K/uL Immature Gran # (Auto) 0.11 (0.01-0.20) K/uL Sodium 136 (136-145) mmol/L Potassium 4.9 (3.5-5.1) mmol/L Chloride 105 (98-107) mmol/L Carbon Dioxide 22 (21-32) mmol/L Anion Gap 9 (3-11) BUN 28 H (6-23) mg/dl Creatinine 1.19 (0.6-1.4) mg/dl Est Cr Clr Drug Dosing 42.8 ml/min Est GFR ( Amer) 67.4 ml/min Est GFR (Non-Af Amer) 58.2 ml/min BUN/Creatinine Ratio 23.5 H (10-20) Glucose 79 (70-99(Fasting)) mg/dl Calcium 9.8 (8.6-10.3) mg/dl Total Bilirubin 0.7 (0.2-1.0) mg/dl AST 37 (13-39) U/L ALT 17 (7-52) U/L Alkaline Phosphatase 335 H (34-104) U/L Troponin I High Sens 12.3 (0-20) pg/ml B-Natriuretic Peptide 210 H (0-100) pg/ml Total Protein 6.2 (6.0-8.3) gm/dl Albumin 3.2 L (3.4-5.0) gm/dl Globulin 3.0 (2.5-4.0) gm/dl Albumin/Globulin Ratio 1.1 (0.9-2) Urine Color Yellow Urine Appearance Clear (Clear) Urine pH 6.5 (4.5-7.5) Ur Specific [place] 1.017 (1.000-1.030) Urine Protein Negative (Negative) Urine Glucose (UA) Negative (Negative) Urine Ketones 1+ H (Negative) Urine Blood Negative (Negative) Urine Nitrite Negative (Negative) Urine Bilirubin Negative (Negative) Urine Urobilinogen Negative (Negative) Ur Leukocyte Esterase Negative (Negative) Adenovirus (PCR) Not Detected (NotDetected) B. pertussis DNA (PCR) Not Detected (NotDetected) B.parapertussis DNA PCR Not Detected (NotDetected) C. pneumoniae DNA (PCR) Not Detected (NotDetected) Coronavirus OC43 (PCR) Not Detected (NotDetected) Coronavirus HKU1 (PCR) Not Detected (NotDetected) Coronavirus 229E (PCR) Not Detected (NotDetected) SARS-CoV-2 (PCR) Not Detected (NotDetected) Coronavirus NL63 (PCR) Not Detected (NotDetected) Human Metapneumovir PCR Not Detected (NotDetected) Influenza Type A (PCR) Not Detected (NotDetected) Influenza Type B (PCR) Not Detected (NotDetected) M. pneumoniae (PCR) Not Detected (NotDetected) Parainfluenza 1 (PCR) Not Detected (NotDetected) Parainfluenza 2 (PCR) Not Detected (NotDetected) Parainfluenza 3 (PCR) Not Detected (NotDetected) Parainfluenza 4 (PCR) Not Detected (NotDetected) RSV (PCR) Not Detected (NotDetected) Entero/Rhino (PCR) Not Detected (NotDetected) Administered Medications Acetaminophen (Acetaminophen 500 Mg Tab) 1,000 mg PO Q8H FELISHA Stop: 05/28/24 17:29 Last Admin: 04/28/24 17:40 Dose: 1,000 mg Documented By: EFREN Heparin Sodium (Porcine) (Heparin 100 Unit/Ml 5ml Flush) 5 ml FLUSH PRN PRN PRN Reason: Flush Stop: 05/28/24 17:11 Last Admin: 04/28/24 17:40 Dose: 5 ml Documented By: EFREN Discontinued Medications Hydromorphone HCl (Hydromorphone Inj 0.5 Mg/0.5 Ml Syr) 0.5 mg IV NOW STA Stop: 04/28/24 10:40 Last Admin: 04/28/24 11:05 Dose: 0.5 mg Documented By: JEFFERY Lidocaine (Lidocaine 5% 1 Patch) 1 patch TD NOW STA Stop: 04/28/24 17:24 Last Admin: 04/28/24 17:39 Dose: 1 patch Documented By: EFREN Oxycodone HCl (Oxycodone Hcl Ir 5 Mg Tab (Immediate Release)) 5 mg PO NOW STA Stop: 04/28/24 17:25 Last Admin: 04/28/24 17:39 Dose: 5 mg Documented By: EFREN Imaging Data Radiologist's Impression: Chest X-Ray 04/28/24 09:24 XR chest 1V portable HISTORY: 79 years-old Male Dyspnea COMPARISON: 03/26/2024 TECHNIQUE: AP view of the chest FINDINGS: Cardiac mediastinal and hilar silhouettes are unchanged. Right IJ Iznbjc-b-[id number] catheter is in stable positioning. Unchanged left greater than right pleural effusion with left basilar predominant consolidation. 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 No pneumothorax or pulmonary edema. Bones appear grossly intact. IMPRESSION: 1. Left greater right pleural effusions with left basilar consolidation again noted. 2. Multifocal pulmonary metastasis redemonstrated. ACT 112: Negative or not required by law. The above report was generated using voice recognition software. It may contain grammatical, syntax or spelling errors. Electronically signed by: Narendra Mckee M.D. 04/28/2024 11:26 AM Discharge Plan Visit Data Chief Complaint: Shortness of Breath/Dyspnea ED Provider: Joao Perez Discharge Problem: SOB (shortness of breath), Congestive heart failure Patient Disposition: Admitted As Inpatient Discharge Instructions Interventions: ED Discharge Assessment Last Done: 04/28/24 15:32
[2024-04-28 11:25] LABS: Adenovirus PCR Not Detected (NotDetected); Bordetella parapertussis PCR Not Detected (NotDetected); Bordetella pertussis PCR Not Detected (NotDetected); Chlamydia pneumoniae PCR Not Detected (NotDetected); Coronavirus 229E PCR Not Detected (NotDetected); Coronavirus CoV-2 (COVID19)PCR Not Detected (NotDetected); Coronavirus HKU1 PCR Not Detected (NotDetected); Coronavirus NL63 PCR Not Detected (NotDetected); Coronavirus OC43PCR Not Detected (NotDetected); Human Metapneumovirus PCR Not Detected (NotDetected); Influenza A PCR Not Detected (NotDetected); Influenza B PCR Not Detected (NotDetected); Mycoplasma pneumoniae PCR Not Detected (NotDetected); Parainfluenza Virus 1 PCR Not Detected (NotDetected); Parainfluenza Virus 2 PCR Not Detected (NotDetected); Parainfluenza Virus 3 PCR Not Detected (NotDetected); Parainfluenza Virus 4 PCR Not Detected (NotDetected); Respiratory Syncytial VirusPCR Not Detected (NotDetected); Rhinovirus/Enterovirus PCR Not Detected (NotDetected)
--- NOTE | 2024-04-28 11:27 | XRay Report ---
XR chest 1V portable HISTORY: 79 years-old Male Dyspnea COMPARISON: 03/26/2024 TECHNIQUE: AP view of the chest FINDINGS: Cardiac mediastinal and hilar silhouettes are unchanged. Right IJ Ygrzlb-b-Gdpy catheter is in stable positioning. Unchanged left greater than right pleural effusion with left basilar predominant consol idation. 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 No pneumo thorax or pulmonary edema. Bones appear grossly intact. IMPRESSION: 1. Left greater right pleural effusions with left basilar consolidation again noted. 2. Multifocal pulmonary metastasis redemonstrated. ACT 112: Negative or not required by law. The above report was generated using voice recognition software. It may contain grammatical, syntax o r spelling errors. Electronically signed by: Narendra Mckee M.D. 04/28/2024 11:26 AM
--- OUTSIDE RECORDS SUMMARY | 2024-04-28 12:36 | External Medical Summary | Summary of Care ---
Author Name Unknown Organization [facility] Address [address] [place] [facility] [address] Phone [phone] Care Team Providers Care Telephone Lineworker Name Role Phone Elissa Carrero MD Primary Care Provider Reason for Visit * Reason Comments Chemotherapy C2/D8 - Trodelvy * Episode Based Medications (Routine) - Authorized Specialty Diagnoses / Procedures Referred By Contcarl t Referred To Contact Diagnoses Cancer of left renal pelvis (HCC) Encounter for antineoplastic chemotherapy Malignant neoplasm of overlapping sites of bladder (HCC) Procedures [place] FOSAPREPITANT INJECTION [place] SACITUZUMAB GOVITECAN-HZIY Romel Perez MD [address] [place] [address] [place] [address] Anc Hem/Onc [address] [address] Referral ID Status Reason Start Date Expiration Date V isits Requested Visits Authorized [id number] Authorized 02/04/2024 09/16/2099 [id number] Encounter Details Date Type Department Care Team (Latest Contact Info) Description 03/18/2024 1:00 PM EDT Hem/Onc Treatment Hematology/Oncolog y Treatment, [address] [phone] Tammy, Chair 11 Hem Onc [address] [place] [address] Cancer of left renal pelvis (HCC)*; Encounter for antineoplastic chemotherapy; Malignant neoplasm of overlapping sites of bladder (HCC) Allergies Active Allergy Reactions Criticality Noted Date Comments Lisinopril 07/04/2019 Other reaction(s): Angioedema Piroxicam 10/25/2022 Other reaction(s): muscle spasms documented as of this encounter (statuses as of 04/24/2024) Medications Medication Sig Dispensed Refills Start Date End Date Status MULTIVITAMINS PO TABS Take by mouth once. Takes at night Active Diclofenac Sodium 1 % gel Place topically on the skin. 08/28/2018 Active Lidocaine 5 % External Patch (Lidoderm) Place 1 Patch topically on the skin daily as needed (pain). 90 Patch 3 01/24/2023 Active Gabapentin 600 MG Oral Tablet (Neurontin) 2 tablets in the morning, 1 tablet in the afternoon, 2 tablets in the evening 450 Tablet 3 05/24/2023 Active Famotidine 40 MG Oral Tablet (Pepcid) Take 1 Tablet by mouth at bedtime as needed for Heartburn. 90 Tablet 3 06/21/2023 Active Lidocaine-Priloca ine 2.5-2.5 % External Cream (Emla)Indications :Cancer of left renal pelvis (HCC) APPLY TO SKIN OVER MEDIPORT & COVER 1HR PRIOR TO ACCESSING. 30 g 1 09/06/2023 Active Aspirin 81 MG Oral Capsule Take 1 Tablet by mouth every evening. Active oxyCODONE-Acetami nophen 5-325 MG Oral Tablet (Percocet)Indicat ions:Malignant neoplasm of overlapping sites of bladder (HCC) Take 1 Tablet by mouth every 4 hours as needed for Pain, Moderate. 30 Tablet 11/26/2023 Active Prochlorperazine Maleate 10 MG Oral Tablet (Compazine)Indica tions:Cancer of left renal pelvis (HCC) Take 1 Tablet by mouth every 6 hours as needed for Nausea. 30 Tablet 2 02/07/2024 Active Ondansetron HCl 8 MG Oral TabletIndications :Cancer of left renal pelvis (HCC) Take 1 Tablet by mouth every 8 hours as needed for Nausea. 30 Tablet 2 02/07/2024 Active dexAMETHasone 2 MG Oral Tablet (Decadron)Indicat ions:Cancer related pain Take 1 Tablet by mouth daily with breakfast. 14 Tablet 03/11/2024 Active Diclofenac Sodium 50 MG Oral Tablet Delayed Release (Voltaren) FOUR TIMES DAILY 11/19/2023 Active MultiVitamin + Fluoride 0.25 MG Oral Tablet Chewable 1 Tablet. 11/19/2023 Active Tamsulosin HCl 0.4 MG Oral Capsule (Flomax)Indicatio ns:BPH without obstruction/lower urinary tract symptoms Take 1 Capsule by mouth every evening. 90 Capsule 5 03/13/2024 Active Modafinil 100 MG Oral Tablet (Provigil) Take 1 Tablet by mouth daily as needed (fatigue). 90 Tablet 1 03/13/2024 Active Hydrocortisone 2.5 % External Cream Administer into the rectum 2 times a day. Apply To rectum twice daily as needed for pain 20 g 3 03/13/2024 Active traMADol HCl 50 MG Oral Tablet (Ultram)Indicatio ns:Chronic low back pain, unspecified back pain laterality, unspecified whether sciatica present Take 1 Tablet by mouth every 8 hours as needed for Pain, Moderate. 90 Tablet 2 11/03/2022 Discontinue d(Refill) documented as of this encounter (statuses as of 04/24/2024) Active Problems Problem Noted Date Diagnosed Date Dehydration 12/10/2023 Right inguinal pain 10/10/2023 Chronic kidney disease, [...] as of this encounter (statuses as of 04/24/2024) Resolved Problems Problem Noted Date Diagnosed Date Resolved Date Stage 3a chronic kidney disease 10/27/2022 01/24/2023 Overview: Per CKD protocol documented as of this encounter (statuses as of 04/24/2024) Immunizations Name Administration Dates Next Due COVID-19 mRNA, LNP-s, No Pre serve, 2-Dose Series (Pfizer) 01/09/2022,06/28/2021,11/10/2020,10/21 Pneumococcal Conjugate Vacc, 13 Valent (Prevnar) 01/14/2016 Pneumococcal Polysaccharide PPV23 (Pneumovax) 08/06/2013 Seasonal Influenza Virus Vac cine, Unspecified Formulation 09/05/2023,06/27/2022,07/12/2021,09/05,08/07/2018,10/02/2017,09/30/2016 ,06/17/2015 Seasonal Influenza, Quadriva lent Hd (Fluzone Hd) 09/05/2023,06/27/2022,07/12/2021,06/17,06/26/2013 Seasonal Influenza, Quadriva lent Hd, 65+ Yrs 07/13/2020 Seasonal Influenza, Split, I IV3, With Preserve, Inj 09/30/2016,06/26/2013 Seasonal Influenza, Trivalen t, High Dose, No Preserve, IM 09/05/2019,08/07/2018 TD, Preservative Free 08/16/1990 TDAP (age 10 and older)(Boostrix) 09/30/2016 TDAP, Age 7 and older, IM (Adacel) 08/06/2013 Varicella Zoster Vaccine (Adult) 09/03/2013 documented [...] Sign Reading Time Taken Comments Blood Pressure 93/60 03/18/2024 12:53 PM EDT Pulse 60 03/18/2024 12:53 PM EDT Temperature 35.9 C (96.7 F) 03/18/2024 12:53 PM E DT Respiratory Rate 16 03/18/2024 12:53 PM EDT Oxygen Saturation 95% 03/18/2024 12:53 PM EDT Inhaled Oxygen Concentration - - Weight 60.3 kg (133 lb) 03/18/2024 12:53 PM EDT Height - - Body Mass Index 22.83 03/13/2024 11:32 AM EDT documented in this encounter Functional [...] as of this encounter Nursing Notes * Sonali Rucker RN - 03/18/2024 4:32 PM EDT Goals: Patient will remain free from injury Possible barriers to meeting goals: weakness, IV pole Stability of the patient: Moderately unstable - medium risk of patient condition declining or worsening Summary regarding today's goals: Met: pt remained free from harm while in clinic VAD flushed with 10 ml NSS and Heparin 5 ml (100 units/ml). Conrad needle removed intact. Pt discharged in stable condition. * Katia Short RN - 03/18/2024 12:58 PM EDT Chair 12. Port accessed. BP is slightly low 93/60. Patient has not been drinking a lot of water, less than 64 oz daily. Per patient, he feels he is drinking maybe half of this daily. Encouraged fluid intake to get to 64 oz per day. Chemotherapy/Immunotherapy agents: THERON Consent for chemotherapy drug treatment complete, dated, and signed? yes, date - 02/04/2024 Treatment lab parameters met? Yes Has treatment weight changed > than 10%? No Treatment preauthorized? Yes VITALS Filed Vitals: 03/18/24 1253 BP: 93/60 Pulse: 60 Resp: 16 Temp: 35.9 C (96.7 F) TempSrc: Tympanic SpO2: 95% Weight: 60.3 kg (133 lb) Urine protein: N/A Patient education completed for treatment? Yes Blood transfusion consent signed and complete? NA Return appointment scheduled? Yes Patient had provider visit today? No - If no provider visit must complete Pretreatment Assessment Functional Status: Functional status at today's visit: Ambulatory and capable of all selfcare but unable to carry out any work activities. Up and about more than 50% of waking hours The drug name, dose, infusion volume, rate and route of administration, expiration date and time, appearance and physical integrity of the drug and rate set on the pump and sequencing of drug administration (as applicable) were verified by me and second sign-in RN. Patient was assessed for symptoms or adverse side effects during treatment. PRE-TREATMENT ASSESSMENT: NEURO: fatigue:Main complaint from patient, significantly more fatigued since his Day 1 of tx cycle last week. CV/RESP: denies symptoms GI/: OTHER: sore on anus, makes it painful for patient to have BM, he is taking a stool softener . He saw PCP about 1 week ago for this sore and they ordered cream/topical medication to use for it. Otherwise, he is managing his pain he has regarding this. OTHER: denies any additional symptoms PAIN: 1-2 pain location : sore on anus, hurts mainly when having a BM Safety and Risk for Injury Patient will remain free from injury. Ensure appropriate safety devices are available. Provide and maintain safe environment. documented in this encounter Plan of Treatment Upcoming Encounters Date Type Department Care Team (Late st Contact Info) Description 04/29/2024 11:50 AM EDT Laboratory Laboratory [facility] [address] [facility] [place], [place] [phone] Tammy, Lab [address] [place], [place] [address] 04/29/2024 12:30 PM EDT Office Visit Hematology/Oncology [facility] [address] [place], [place] [phone] Romel Perez MD [address] [place] [address] 04/29/2024 1:00 PM EDT Hem/Onc Treatment Hematology/Oncology Treatment, [address] [place] [phone] Tammy, Chair 7 Hem Onc [address] [place], [place] [address] 05/14/2024 10:00 AM EDT Office Visit Palliative Medicine [address] [place] [phone] Mary Mayfield MD [address] [place] [address] Health Maintenance Due Date Last Done Comments Depression Screening 1957 Albumin/Creatinine Ratio 02/07/1964 CKD PHOS USE SMARTSET 40639 02[birth year]07/1963 Zoster Vaccines (2 of 3) 10/29/2013 09/03/2013 COVID-19 Vaccine ( season) 2023 01/09/2022, 06/28/2021, 11/10/2020, Additional history exists Influenza Vaccine (FLU shot) (#1) 2024 09/05/2023, 09/05/2023, 06/27/2022, Additional history exists GFR 10/15/2024 04/14/2024, 03/17, 03/18/2024, Additional history exists CKD HGB USE SMARTSET 11264 04/14/202504/14, 04/14/2024, 04/01/2024, Additional history exists DTaP,Tdap,and Td Vaccines (3 - Td or Tdap) 09/30/2026 09/30/2016, 08/06/2013, 08/16/1990 Pneumococcal Vaccine: 65+ Years Completed 01/14/2016, 08/06/2013 Hepatitis C Screening Completed 11/15/2020 HPV (Gardasil) Vaccine Aged Out No lo nger eligible based on patient's age to complete this topic Hepatitis B Vaccine Aged Out No longe r eligible based on patient's age to complete this topic MENINGOCOCCAL (MENACTRA/MENVEO) Aged Out No longer eligible based on patient's age to complete this topic documented as of this encounter Medical Devices Implanted Type Area Horse Breeder Device Identifier Shelf Expiration Date Model / Serial / Lot Port Implant W/8f Poly Cath - [id number] Implanted:Qty : 1 on 09/21/2023 by Phill Patrick MD at OR [facility] Right: Chest CR BARD : PERIPHERAL VASCULAR [id number] 08/16/2024 [id number] / / [id number] documented as of this encounter Visit Diagnoses Diagnosis Cancer of left renal pelvis (HCC)- Primary Encounter for antineoplastic chemotherapy Malignant neoplasm of overlapping sites of bladder (HCC) Malignant neoplasm of other specified sites of bladder documented in this encounter Administered Medications Inactive Administered Medications - up to 3 most recent administrations Medication Order MAR Action Action Date Dose Rate Site Acetaminophen (Tylenol) tab 650 mg 650 mg, Oral, ONCE, On Sun03/18/24 at 1430, For 1 dose, Maximum of 4 grams (4000 mg) per day. Patient/Caregiver Administered 03/18/2024 2:30 PM EDT 650 mg diphenhydrAMINE (Benadryl) cap 50 mg 50 mg, Oral, ONCE, On Sun03/18/24 at 1430, For 1 dose Given 03/18/2024 1:47 PM EDT 50 mg Famotidine (Pepcid) tab 20 mg 20 mg, Oral, ONCE, On Sun03/18/24 at 1430, For 1 dose Given 03/18/2024 1:47 PM EDT 20 mg Fosaprepitant Dimeglumine (Emend) 150 mg, ondansetron (Zofran) 16 mg, dexamethasone sodium phosphate 12 mg in NSS 250 mL Infusion 150 mg, IV Piggyback, ONCE, 1 dose, On Sun03/18/24 at 1430, Administer over 30 Minutes, Give 30 minutes prior to chemotherapy. Infuse over 30 minutes. Start Infusion 03/18/2024 1:54 PM EDT 150 mg 538.4 mL/hr hEParin 100 UNIT/ML Lock Flush inj 500 Units 500 Units (5 mL), IV Lock, PRN Other, IV Flush, Starting on Sun03/18/24 at 1328, Until Sun03/18/24 at 2040, For 24 hours, Do not flush if lock, PICC, or central line not in place; IV infusing or unable to flush. Given 03/18/2024 4:22 PM EDT 500 Units NSS infusion Intravenous, at 50 mL/hr, PRN, Starting on Sun03/18/24 at 1430, Until Sun03/18/24 at 2040, Maintenance line Start Infusion 03/18/2024 1:34 PM EDT 50 mL/hr Sacituzumab Govitecan-hziy (Trodelvy) 645 mg in NSS 250 mL infusion 645 mg (10 mg/kg 64.5 kg Treatment plan Recorded weight), IV Piggyback, ONCE, On Sun03/18/24 at 1500, For 1 dose, Final concentration 1.1 to 3.4 mg/mL. Total volume should not exceed 500 mL. Infuse inital dose over 3 hours. May administer subsequent infusions over 1 to 2 hours if previous infusions were tolerated. Caution Chemotherapy! Handle with gloves! Protect from light! Start Infusion 03/18/2024 2:39 PM EDT 645 mg 255 mL/hr sodium chloride 0.9 % flush central line 10 mL 10 mL, IV Push, PRN Other, IV Flush, Starting on Sun03/18/24 at 1328, Until Sun03/18/24 at 2040, For 24 hours, Do not flush if lock, PICC, or central line not in place; IV infusing or unable to flush. Given 03/18/2024 4:22 PM EDT 10 mL documented in this encounter Advance Directives Documents on File Type Date Recorded Patient Iso Coordinator Melody mitchell POLST 12/13/2023 10:22 AM POLST (kassie ba DNR) * Full Code (Latest Code Status on File) Date Activated Date Inactivated Comments 08/29/2023 9:51 AM 08/29/2023 4:02 PM This order reflects the patients wishes and were consensually agreed upon. Question Answer Comments Discussion of Advance Directives occurred with: Patient Does the patient have a Living Will? Yes, not cu rrently available Does the patient have Health Care Power of Medical Videographer? Yes, not currently available * Full Code Date Activated Date Inactivated Comments 05/23/2022 6:38 PM 05/25/2022 7:08 PM This order ref lects the patients wishes and were consensually agreed upon. Question Answer Comments Discussion of Advance Direct maral occurred with: Not Discussed due to patient's condition * Full Code Date Activated Date Inactivated Comments 05/23/2022 12:31 PM 05/23/2022 6:38 PM This order re flects the patients wishes and were consensually agreed upon. Question Answer Comments Discussion of Advance Direct maral occurred with: Not Discussed due to patient's condition * Full Code Date Activated Date Inactivated Comments 11/12/2017 2:18 PM 11/13/2017 8:58 PM Question Answer Comments Discussion of Advance Directives occurred with: Not Discussed Does the patient have a Living Will? No Does the patient have Health Care Power of Attor panchito? No Care Teams Telephone Lineworker Relationship Specialty Start Date End Date Elissa Carrero MD [address] [address] [place] [address] PCP - General Family Medicine 12/29/22 documented as of this encounter
--- OUTSIDE RECORDS SUMMARY | 2024-04-28 12:36 | External Medical Summary | Summary of Care ---
Author Name Unknown Organization [facility] Address [address] [place] [address] Phone [phone] Care Team Providers Care Senior Wind Energy Consultant Name Role Phone Elissa Carrero MD Primary Care Provider Reason for Visit * Reason Comments Chemotherapy C2/D8 - Trodelvy * Episode Based Medications (Routine) - Authorized Specialty Diagnoses / Procedures Referred By Contcarl t Referred To Contact Diagnoses Cancer of left renal pelvis (HCC) Encounter for antineoplastic chemotherapy Malignant neoplasm of overlapping sites of bladder (HCC) Procedures [place] FOSAPREPITANT INJECTION [place] SACITUZUMAB GOVITECAN-HZIY Rmoel Perez MD [address] [place] [address] [place] [address] Anc Hem/Onc [address] [phone] Referral ID Status Reason Start Date Expiration Date V isits Requested Visits Authorized [id number] Authorized 02/04/2024 09/16/[phone] Encounter Details Date Type Department Care Team (Latest Contact Info) Description 03/18/2024 1:00 PM EDT Hem/Onc Treatment Hematology/Oncolog y Treatment, [address] [phone] Tammy, Chair 11 Hem Onc [address] [place] [address] Cancer of left renal pelvis (HCC)*; Encounter [...] Description 04/29/2024 11:50 AM EDT Laboratory Laboratory [facility] [address] [facility] [place], [place] [phone] Tammy, Lab [address] [place], [place] [address] 04/29/2024 12:30 PM EDT Office Visit Hematology/Oncology [facility] [address] [place], [place] [phone] Romel Perez MD [address] [place] [address] 04/29/2024 1:00 PM EDT Hem/Onc Treatment Hematology/Oncology Treatment, [address] [place] [phone] Tammy, Chair 7 Hem Onc [address] [place], [place] [address] 05/14/2024 10:00 AM EDT Office Visit Palliative Medicine [address] [place] [phone] Mary Mayfield MD [address] [place] [address] Health Maintenance Due Date Last Done Comments Depression Screening 1957 Albumin/Creatinine Ratio 02/07/1964 CKD PHOS USE SMARTSET 06583 02/07/1964 Zoster Vaccines (2 of 3) 10/29/2013 09/03/2013 COVID-19 Vaccine ( season) 2023 01/09/2022, 06/28/2021, 11/10/2020, Additional history exists Influenza Vaccine (FLU shot) (#1) 2024 09/05/2023, 09/05/2023, 06/27/2022, Additional history exists GFR 10/15/2024 04/14/2024, 03/17, 03/18/2024, Additional history exists CKD HGB USE SMARTSET 81536 04/14/202504/14, 04/14/2024, 04/01/2024, Additional history exists DTaP,Tdap,and [...] this encounter Medical Devices Implanted Type Area Ms Access Database Developer Device Identifier Shelf Expiration Date Model / Serial / Lot Port Implant W/8f Poly Cath - [id number] Implanted:Qty : 1 on 09/21/2023 by Phill Patrick MD at OR [facility] Right: Chest CR BARD : PERIPHERAL VASCULAR [id number] 08/16/2024 [id number] / / [id number] documented as of this encounter Visit Diagnoses [...] Documents on File Type Date Recorded Patient Property Staff Accountant Melody mitchell POLST 12/13/2023 10:22 AM POLST [...] the patient have Health Care Power of Principal Systems Architect? Yes, not currently available * Full Code [...] Power of Attor panchito? No Care Teams Senior Wind Energy Consultant Relationship Specialty Start Date End Date Elissa Carrero MD [address] [address] [place] [address] PCP - General Family Medicine 12/29/22 documented as of this encounter
--- OUTSIDE RECORDS SUMMARY | 2024-04-28 12:37 | External Medical Summary ---
Author Name Unknown Address Unknown Organization K09[facility] [place] [address] Laboratory Report Ordering Provider Test Date Status PENELOPE WALLACE 04/14/2024 10:13:13 Final Observation Date Value Abnormality Reference (Units ) Status SYNC LEUKOCYTES IN BLOOD BY AUTOMATED COUNT 04/14/2024 10:13:13 9.91 4.00-10.80 (K/uL) Final Segs 04/14/2024 10:13:13 73.4 40.0-75.0 (%) Final Lymphs % 04/14/2024 10:13:13 10.0 Below low normal 18.0-42.0 (%) Final Monos 04/14/2024 10:13:13 15.2 Above high normal 1.0-11.0 (%) Final Eosinophils 04/14/2024 10:13:13 1.2 0.0-6.0 (%) Final Basos 04/14/2024 10:13:13 0.2 0.0-2.0 (%) Final Absolute Segs 04/14/2024 10:13:13 7.27 1.80-7.70 (K/uL) Final Lymphs, absolute 04/14/2024 10:13:13 0.99 Below low normal 1.00-4.80 (K/ul) Final Monos, Abs 04/14/2024 10:13:13 1.51 Above high normal 0.00-1.10 (K/uL) Final Eos, Abs 04/14/2024 10:13:13 0.12 0.00-0.70 (K/uL) Final Basos, Abs 04/14/2024 10:13:13 0.02 0.00-0.20 (K/uL) Final Performing Location [facility] [place] [address]
--- OUTSIDE RECORDS SUMMARY | 2024-04-28 12:37 | External Medical Summary | Summary of Care ---
Author Name Unknown Organization [facility] [address] [facility] [address] Phone [phone] Care Team Providers Care Boilers Inspector Name Role Phone Elissa Carrero MD Primary Care Provider Reason for Visit * Reason Comments Outpatient Testing Encounter Details Date Type Department Care Team (Late st Contact Info) Description 04/14/2024 10:10 AM EDT Laboratory Laboratory [facility] [address] [place] [phone] Mobile, Lab Scenery [address] [place] [address] Bladder cancer (HCC) Allergies Active Allergy Reactions Criticality Noted Date Comments Lisinopril 07/04/2019 Other reaction(s): Angioedema Piroxicam 10/25/2022 Other reaction(s): muscle spasms documented as of this encounter (statuses as of 04/14/2024) Medications Medication Sig Dispensed Refills Start Date End Date Status MULTIVITAMINS PO TABS Take by mouth once. Takes at night Active Diclofenac Sodium 1 % gel Place topically on the skin. 08/28/2018 Active traMADol HCl 50 MG Oral Tablet (Ultram)Indications :Chronic low back pain, unspecified back pain laterality, [...] for Heartburn. 90 Tablet 3 06/21/2023 Active Lidocaine-Prilocain e 2.5-2.5 % External Cream (Emla)Indications:C ancer of left renal pelvis (HCC) APPLY TO SKIN OVER MEDIPORT & COVER 1HR PRIOR TO ACCESSING. 30 g 1 09/06/2023 Active Aspirin 81 MG Oral Capsule Take 1 Tablet by mouth every evening. Active oxyCODONE-Acetamino phen 5-325 MG Oral Tablet (Percocet)Indicatio ns:Malignant neoplasm of overlapping sites of bladder (HCC) Take 1 Tablet by mouth every 4 hours as needed for Pain, Moderate. 30 Tablet 11/26/2023 Active Prochlorperazine Maleate 10 MG Oral Tablet (Compazine)Indicati ons:Cancer of left renal pelvis (HCC) Take 1 Tablet by mouth every 6 hours as needed for Nausea. 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 30 Tablet 2 02/07/2024 Active dexAMETHasone 2 MG Oral Tablet (Decadron)Indicatio ns:Cancer related pain Take 1 Tablet by mouth daily with breakfast. 14 Tablet 03/11/2024 Active Diclofenac Sodium 50 MG Oral Tablet Delayed Release (Voltaren) FOUR TIMES DAILY 11/19/2023 Active MultiVitamin + Fluoride 0.25 MG Oral Tablet Chewable 1 Tablet. 11/19/2023 Active Tamsulosin HCl 0.4 MG Oral Capsule (Flomax)Indications :BPH without obstruction/lower urinary tract symptoms Take 1 [...] for pain 20 g 3 03/13/2024 Active Megestrol Acetate 625 MG/5ML Oral SuspensionIndicatio ns:Malignant neoplasm of overlapping sites of bladder (HCC) Take 625 mg by mouth in the morning. 2000 mL 2 04/02/2024 Active documented as of this encounter (statuses as of 04/14/2024) Active Problems Problem Noted Date Diagnosed Date [...] as of this encounter (statuses as of 04/14/2024) Resolved Problems Problem Noted Date Diagnosed Date Resolved Date Stage 3a chronic kidney disease 10/27/2022 01/24/2023 Overview: Per CKD protocol documented as of this encounter (statuses as of 04/14/2024) Immunizations Name Administration Dates Next Due COVID-19 mRNA, LNP-s, No Pre serve, 2-Dose Series ([employer]) 01/09/2022,06/28/2021,11/10/2020,10/21 Pneumococcal Conjugate Vacc, 13 Valent (Prevnar) [...] Care Team (Late st Contact Info) Description 04/14/2024 10:30 AM EDT Office Visit Hematology/Oncology [facility] [address] [place] [phone] Romel Perez MD 200 [place] [address] Arrived 04/14/2024 11:00 AM EDT Hem/Onc Treatment Hematology/Oncology Treatment, [address] [place] [phone] Tammy, Chair 9 Hem On[address] [place], [place] [address] Arrived 05/14/2024 10:00 AM EDT Office Visit Palliative Medicine [facility] 200 [place] [address] Mary Mayfield MD [address] [place] [address] Pending Results Name Type Priority Associated Diagnoses Date /Time CBC WITH WBC DIFFERENTIAL Lab STAT Bladder cancer (HCC) 04/14/2024 10:13 AM EDT COMPREHENSIVE METABOLIC PANEL Lab STAT Bladder cancer (HCC) 04/14/2024 10:13 AM EDT CBC Lab STAT Bladder cancer (HCC) 04/14/2024 10:13 AM EDT DIFFERENTIAL, AUTOMATED Lab STAT Bladder cancer (HCC) 04/14/2024 10:13 AM EDT Health Maintenance Due Date Last Done Comments Depression Screening 1957 Albumin/Creatinine Ratio 02/07/1964 CKD PHOS USE SMARTSET 65566 02[birth year]07/1963 Zoster Vaccines (2 of 3) 10/29/2013 09/03/2013 COVID-19 Vaccine ( season) 2023 01/09/2022, 06/28/2021, 11/10/2020, Additional history exists Influenza Vaccine (FLU shot) (#1) 2024 09/05/2023, 09/05/2023, 06/27/2022, Additional history exists GFR 10/02/2024 04/01/2024, 07/0 10/2023, 03/11/2024, Additional history exists CKD HGB USE SMARTSET 32643 04/01/202504/01, 04/01/2024, 03/18/2024, Additional history exists DTaP,Tdap,and Td Vaccines (3 [...] this encounter Medical Devices Implanted Type Area Credit Resolution Representative Device Identifier Shelf Expiration Date Model / Serial / Lot Port Implant W/8f Poly Cath - [id number] Implanted:Qty : 1 on 09/21/2023 by Phill Patrick MD at OR [facility] Right: Chest CR BARD : PERIPHERAL VASCULAR [id number] 08/16/2024 [id number] / / [id number] documented as of this encounter Visit Diagnoses Diagnosis Bladder cancer (HCC) Malignant neoplasm of bladder, part unspecified documented in this encounter Advance Directives Documents on File Type Date Recorded Patient Customer Manager Expl anation POLST 12/13/2023 10:22 AM POLST (kassie ba [...] the patient have Health Care Power of Piece Maker? Yes, not currently available * Full Code [...] Power of Attor panchito? No Care Teams Boilers Inspector Relationship Specialty Start Date End Date Elissa Carrero MD [address] [address] PCP - General Family Medicine 12/29/22 documented as of this encounter
--- OUTSIDE RECORDS SUMMARY | 2024-04-28 12:37 | External Medical Summary | Summary of Care ---
Author Name Unknown Organization [facility] Address [address] [facility] [place] [address] Phone [phone] Care Team Providers Care Equalizer Operator Name Role Phone Elissa Carrero MD Primary Care Provider Reason for Visit * Reason Comments Chemotherapy C2/D8 - Trodelvy * Episode Based Medications (Routine) - Authorized Specialty Diagnoses / Procedures Referred By Contcarl t Referred To Contact Diagnoses Cancer of left renal pelvis (HCC) Encounter for antineoplastic chemotherapy Malignant neoplasm of overlapping sites of bladder (HCC) Procedures VA FOSAPREPITANT INJECTION VA SACITUZUMAB GOVITECAN-HZIY Romel Perez MD [address] [place] [address] [place] [address] Anc Hem/Onc [address] [address] Referral ID Status Reason Start Date Expiration Date V isits Requested Visits Authorized [id number] Authorized 02/04/2024 09/16/2099 [id number] Encounter Details Date Type Department Care Team (Latest Contact Info) Description 03/18/2024 1:00 PM EDT Hem/Onc Treatment Hematology/Oncolog y Treatment, [address] [phone] Tammy, Chair 11 Hem Onc [address] [place] [address] Cancer of left renal pelvis (HCC)*; Encounter for antineoplastic chemotherapy; Malignant neoplasm of overlapping sites of bladder (HCC) Allergies Active Allergy Reactions Criticality Noted Date Comments Lisinopril 07/04/2019 Other reaction(s): Angioedema Piroxicam 10/25/2022 Other reaction(s): muscle spasms documented as of this encounter (statuses as of 04/23/2024) Medications Medication Sig Dispensed Refills Start Date [...] as of this encounter (statuses as of 04/23/2024) Active Problems Problem Noted Date Diagnosed Date [...] as of this encounter (statuses as of 04/23/2024) Resolved Problems Problem Noted Date Diagnosed Date Resolved Date Stage 3a chronic kidney disease 10/27/2022 01/24/2023 Overview: Per CKD protocol documented as of this encounter (statuses as of 04/23/2024) Immunizations Name Administration Dates Next Due COVID-19 [...] Description 04/29/2024 11:50 AM EDT Laboratory Laboratory [facility] 200 [facility] [place], [place] [phone] Tammy, Lab [address] [place], [place] [address] 04/29/2024 12:30 PM EDT Office Visit Hematology/Oncology [facility] [address] [place], [place] [phone] Romel Perez MD 200 [place] [address] 04/29/2024 1:00 PM EDT Hem/Onc Treatment Hematology/Oncology Treatment, [address] [place] [phone] Tammy, Chair 7 Hem Onc [address] [place], [place] [address] 05/14/2024 10:00 AM EDT Office Visit Palliative Medicine [address] [place] [phone] Mary May[place] MD [address] [place] [address] Health Maintenance Due Date Last Done Comments Depression Screening 1957 Albumin/Creatinine Ratio 02/07/1964 CKD PHOS USE SMARTSET 82454 02/07/1964 Zoster Vaccines (2 of 3) 10/29/2013 09/03/2013 COVID-19 Vaccine ( season) 2023 01/09/2022, 06/28/2021, 11/10/2020, Additional history exists Influenza Vaccine (FLU shot) (#1) 2024 09/05/2023, 09/05/2023, 06/27/2022, Additional history exists GFR 10/15/2024 04/14/2024, 03/17, 03/18/2024, Additional history exists CKD HGB USE SMARTSET 32126 04/14/202504/14, 04/14/2024, 04/01/2024, Additional history exists DTaP,Tdap,and [...] this encounter Medical Devices Implanted Type Area 3Rd Grade Reading Teacher Device Identifier Shelf Expiration Date Model / Serial / Lot Port Implant W/8f Poly Cath - [id number] Implanted:Qty : 1 on 09/21/2023 by Phill Patrick MD at OR [facility] Right: Chest CR BARD : PERIPHERAL VASCULAR [id number] 08/16/2024 [id number] / / [id number] documented as of this encounter Visit Diagnoses [...] Documents on File Type Date Recorded Patient Marketing Program Manager Melody mitchell POLST 12/13/2023 10:22 AM POLST [...] the patient have Health Care Power of Home Visits Nurse? Yes, not currently available * Full Code [...] Power of Attor panchito? No Care Teams Equalizer Operator Relationship Specialty Start Date End Date Elissa Carrero MD [address] [address] [place] [address] PCP - General Family Medicine 12/29/22 documented as of this encounter
--- OUTSIDE RECORDS SUMMARY | 2024-04-28 12:37 | External Medical Summary | Summary of Care ---
Author Name Unknown Organization [facility] Address [address] [facility] [place] [address] Phone [phone] Care Team Providers Care Loading Manager Name Role Phone Elissa Carrero MD Primary Care Provider Reason for Visit * Reason Comments Chemotherapy C2/D8 - Trodelvy * Episode Based Medications (Routine) - Authorized Specialty Diagnoses / Procedures Referred By Contcarl t Referred To Contact Diagnoses Cancer of left renal pelvis (HCC) Encounter for antineoplastic chemotherapy Malignant neoplasm of overlapping sites of bladder (HCC) Procedures IA FOSAPREPITANT INJECTION IA SACITUZUMAB GOVITECAN-HZIY Romel Perez MD [address] [place] [address] [place] [address] Anc Hem/Onc [address] [address] Referral ID Status Reason Start Date Expiration Date V isits Requested Visits Authorized [id number] Authorized 02/04/2024 09/16/2099 [id number] Encounter Details Date Type Department Care Team (Latest Contact Info) Description 03/18/2024 1:00 PM EDT Hem/Onc Treatment Hematology/Oncolog y Treatment, [address] [phone] Tammy, Chair [address] Hem On[address] [place] [address] Cancer of left renal pelvis (HCC)*; Encounter [...] Description 04/29/2024 11:50 AM EDT Laboratory Laboratory [facility] 200 [facility] [place], [place] [phone] Tammy, Lab [address] [place], [place] [address] 04/29/2024 12:30 PM EDT Office Visit Hematology/Oncology [facility] [address] [place], [place] [phone] Romel Perez MD 200 [place] [address] 04/29/2024 1:00 PM EDT Hem/Onc Treatment Hematology/Oncology Treatment, [address] [place] [phone] Tammy, Chair 7 Hem Onc [address] [place], [place] [address] 05/14/2024 10:00 AM EDT Office Visit Palliative Medicine [address] [place] [phone] Mary [place] MD [address] [place] [address] Health Maintenance Due Date Last Done Comments Depression Screening 1957 Albumin/Creatinine Ratio 02/07/1964 CKD PHOS USE SMARTSET 60899 02/07/1963 Zoster Vaccines (2 of 3) 10/29/2013 09/03/2013 COVID-19 Vaccine ( season) 2023 01/09/2022, 06/28/2021, 11/10/2020, Additional history exists Influenza Vaccine (FLU shot) (#1) 2024 09/05/2023, 09/05/2023, 06/27/2022, Additional history exists GFR 10/15/2024 04/14/2024, 03/17, 03/18/2024, Additional history exists CKD HGB USE SMARTSET 11356 04/14/202504/14, 04/14/2024, 04/01/2024, Additional history exists DTaP,Tdap,and [...] encounter Medical Devices Implanted Type Area Payroll Machine Operator Device Identifier Shelf Expiration Date Model / Serial / Lot Port Implant W/8f Poly Cath - [id number] Implanted:Qty : 1 on 09/21/2023 by Phill Patrick MD at OR [facility] Right: Chest CR BARD : PERIPHERAL VASCULAR [id number] 08/16/2024 [id number] / / [id number] documented as of this encounter Visit Diagnoses [...] Documents on File Type Date Recorded Patient Equity Manager Melody mitchell POLST 12/13/2023 10:22 AM [...] the patient have Health Care Power of Furniture Removalist? Yes, not currently available * Full Code [...] Power of Attor panchito? No Care Teams Loading Manager Relationship Specialty Start Date End Date Elissa Carrero MD [address] [address] [place] [address] PCP - General Family Medicine 12/29/22 documented as of this encounter
--- OUTSIDE RECORDS SUMMARY | 2024-04-28 12:37 | External Medical Summary | Summary of Care ---
Author Name Unknown Organization [facility] Address [address] [facility] [place] [address] Phone [phone] Care Team Providers Care Farm Mechanic Name Role Phone Elissa Carrero MD Primary Care Provider Reason for Visit * Reason Comments Nurse Documentation No treatment per Dr. Perez. Encounter Details Date Type Department Care Team (Late st Contact Info) Description 04/14/2024 11:00 AM EDT Hem/Onc Treatment Hematology/Oncology Treatment, [address] [phone] Tammy, Chair 9 Hem Onc [facility] 200 [place] [address] Arrived Allergies Active Allergy Reactions Criticality Noted [...] mRNA, LNP-s, No Pre serve, 2-Dose Series ([employer]) 01/09/2022,06/28/2021,11/10/2020,10/21 Pneumococcal Conjugate Vacc, 13 Valent (Prevnar) [...] as of this encounter Nursing Notes * Apoorva Barba RN - 04/14/2024 11:02 AM EDT Patient was seen by Dr. Perez today. Per Dr. Perez delay treatment for 2 weeks. documented in this encounter Plan of Treatment Upcoming Encounters Date Type Department Care Team (Late st Contact Info) Description 04/29/2024 11:50 AM EDT Laboratory Laboratory [address] [place] [phone] [facility] Lab [address] [place] [address] 04/29/2024 12:30 PM EDT Office Visit Hematology/Oncology [address] [place] [phone] Romel Perez MD 200 [facility] [place] [address] 04/29/2024 1:00 PM EDT Hem/Onc Treatment Hematology/Oncology Treatment, [address], [place] [phone] Tammy, Chair 8 Hem Onc [address] [place] [address] 05/14/2024 10:00 AM EDT Office Visit Palliative Medicine [address], [place] [address] Mary [place] MD [address] [place], [place] [address] [address] Health Maintenance Due Date Last Done Comments Depression Screening 1957 Albumin/Creatinine Ratio 02/07/1964 CKD PHOS USE SMARTSET 84554 02/07/1963 Zoster Vaccines (2 of 3) 10/29/2013 09/03/2013 COVID-19 Vaccine ( season) 2023 01/09/2022, 06/28/2021, 11/10/2020, Additional history exists Influenza Vaccine (FLU shot) (#1) 2024 09/05/2023, 09/05/2023, 06/27/2022, Additional history exists GFR 10/15/2024 04/14/2024, 03/17, 03/18/2024, Additional history exists CKD HGB USE SMARTSET 34064 04/14/202504/14, 04/14/2024, 04/01/2024, Additional history exists DTaP,Tdap,and [...] this encounter Medical Devices Implanted Type Area Milk Processing Worker Device Identifier Shelf Expiration Date Model / Serial / Lot Port Implant W/8f Poly Cath - [id number] Implanted:Qty : 1 on 09/21/2023 by Phill Patrick MD at OR [facility] Right: Chest CR BARD : PERIPHERAL VASCULAR [id number] 08/16/2024 [id number] / / [id number] documented as of this encounter Advance Directives Documents on File Type Date Recorded Patient Agate Setter Expl anation POLST 12/13/2023 10:22 AM POLST [...] the patient have Health Care Power of Marketing Program Coordinator? Yes, not currently available * Full Code [...] Power of Attor panchito? No Care Teams Farm Mechanic Relationship Specialty Start Date End Date Elissa Carrero MD [address] [address] [place] [address] PCP - General Family Medicine 12/29/22 documented as of this encounter
--- OUTSIDE RECORDS SUMMARY | 2024-04-28 12:37 | External Medical Summary | Summary of Care ---
Author Name Unknown Organization [facility] [address] [facility] [address] Phone [phone] Care Team Providers Care Automobile Spring Repairer Name Role Phone Elissa Carrero MD Primary Care Provider Reason for Visit * Reason Onset Date Comments Filling Problem 04/01/2024 Dr. Perez Encounter Details Date Type Department Care Team (Late st Contact Info) Description 04/01/2024 [facility] [address] [place] [phone] Romel Perez MD [address] [place] [address] Filling Problem (Dr. Perez) Allergies Active Allergy Reactions Criticality Noted Date Comments Lisinopril 07/04/2019 Other reaction(s): Angioedema Piroxicam 10/25/2022 Other reaction(s): muscle spasms documented as of this encounter (statuses as of 04/02/2024) Medications Medication Sig Dispensed Refills Start Date [...] 03/13/2024 Active Megestrol Acetate 625 MG/5ML Oral SuspensionIndicat ions:Malignant neoplasm of overlapping sites of bladder (HCC) Take 625 mg by mouth in the morning. 2000 mL 2 04/02/2024 Active Megestrol Acetate 625 MG/5ML Oral SuspensionIndicat ions:Malignant neoplasm of overlapping sites of bladder (HCC) Take 625 mg by mouth once for 1 dose. 1999 mL 2 04/01/2024 Discontinue d(Refill) documented as of this encounter (statuses as of 04/02/2024) Active Problems Problem Noted Date Diagnosed Date [...] as of this encounter (statuses as of 04/02/2024) Resolved Problems Problem Noted Date Diagnosed Date Resolved Date Stage 3a chronic kidney disease 10/27/2022 01/24/2023 Overview: Per CKD protocol documented as of this encounter (statuses as of 04/02/2024) Immunizations Name Administration Dates Next Due COVID-19 mRNA, LNP-s, No Pre serve, 2-Dose Series ([employer]) 01/09/2022,06/28/2021,11/10/2020,10/21 Pneumococcal Conjugate Vacc, 13 Valent (Prevnar) [...] Telephone Encounter - Madai Hull RN - 04/02/2024 12:[address] Perez's routing comment: "Done Once daily" * Telephone Encounter - Madai Hull RN - 04/02/2024 11:07 AM EDT Rx was written: Disp Refills Start End Megestrol Acetate 625 MG/5ML Oral Suspension 2000 mL 2 04/01/2024 04/01/2024 Sig - Route: Take 625 mg by mouth once for 1 dose. - Oral Dr Perez: pended rx. Please adjust frequency and resign (ie- is patient to take this once a day, twice a day, etc- current rx says 1 dose). Thanks! * Telephone Encounter - Fide Coello OSA - 04/01/2024 1:[address] [facility] pharmacy in [place] requesting corrected script for Pt's Megestrol Acetate medication; dosing instructions seem to be incorrect according to pharmacist. Pharmacy phone number is [phone]. documented in this encounter Plan of Treatment Upcoming Encounters Date Type Department Care Team (Late st Contact Info) Description 04/14/2024 10:10 AM EDT Laboratory Laboratory [facility] [address] [place] [address] Francisco [address] [facility] [place] [address] 04/14/2024 10:30 AM EDT Office Visit Hematology/Oncology [facility] 200 [facility] [place] [place] [phone] Romel Perez MD 200 [facility] [place] [address] 04/14/2024 11:00 AM EDT Hem/Onc Treatment Hematology/Oncology Treatment, [place] 200 [place] [phone] Tammy, Chair 9 Hem Onc [address] [place] [address] 05/14/2024 10:00 AM EDT Office Visit Palliative Medicine [facility] 200 [place] [phone] Mary [place] MD [address] [place] [address] Health Maintenance Due Date Last Done Comments Depression Screening 1957 Albumin/Creatinine Ratio 02/07/1964 CKD PHOS USE SMARTSET 93607 02/07/1963 Zoster Vaccines (2 of 3) 10/29/2013 09/03/2013 COVID-19 Vaccine ( season) 2023 01/09/2022, 06/28/2021, 11/10/2020, Additional history exists Influenza Vaccine (FLU shot) (#1) 2024 09/05/2023, 09/05/2023, 06/27/2022, Additional history exists GFR 10/02/2024 04/01/2024, 07/0 10/2023, 03/11/2024, Additional history exists CKD HGB USE SMARTSET 22310 04/01/202504/01, 04/01/2024, 03/18/2024, Additional history exists DTaP,Tdap,and [...] this encounter Medical Devices Implanted Type Area Production Stage Manager Device Identifier Shelf Expiration Date Model / Serial / Lot Port Implant W/8f Poly Cath - [id number] Implanted:Qty : 1 on 09/21/2023 by Phill Patrick MD at [facility] Right: Chest CR BARD : PERIPHERAL VASCULAR [id number] 08/16/2024 [id number] / / [id number] documented as of this encounter Visit Diagnoses Diagnosis Malignant neoplasm of overlapping sites of bladder (HCC) Malignant neoplasm of other specified sites of bladder documented in this encounter Advance Directives Documents on File Type Date Recorded Patient Broadcasting Equipment Mechanic Expl anation POLST 12/13/2023 10:22 AM POLST [...] the patient have Health Care Power of Hall Supervisor? Yes, not currently available * Full Code [...] Power of Attor panchito? No Care Teams Automobile Spring Repairer Relationship Specialty Start Date End Date Elissa Carrero MD [address] [address] PCP - General Family Medicine 12/29/22 documented as of this encounter
--- OUTSIDE RECORDS SUMMARY | 2024-04-28 12:37 | External Medical Summary | Summary of Care ---
Author Name Unknown Organization [facility] Address [address] [facility] [place] [address] Phone [phone] Care Team Providers Care Project Design Engineer Name Role Phone Elissa Carrero MD Primary Care Provider Encounter Details Date Type Department Care Team (Late st Contact Info) Description 04/10/2024 Orders Only Hematology/Oncology [facility] [place] [address] [facility] [place] [phone] Romel Perez MD 200 [facility] [place] [address] Allergies Active Allergy Reactions Criticality Noted Date Comments Lisinopril 07/04/2019 Other reaction(s): Angioedema Piroxicam 10/25/2022 Other reaction(s): muscle spasms documented as of this encounter (statuses as of 04/10/2024) Medications Medication Sig Dispensed Refills Start Date [...] as of this encounter (statuses as of 04/10/2024) Active Problems Problem Noted Date Diagnosed Date [...] as of this encounter (statuses as of 04/10/2024) Resolved Problems Problem Noted Date Diagnosed Date Resolved Date Stage 3a chronic kidney disease 10/27/2022 01/24/2023 Overview: Per CKD protocol documented as of this encounter (statuses as of 04/10/2024) Immunizations Name Administration Dates Next Due COVID-19 mRNA, LNP-s, No Pre serve, 2-Dose Series ([employer]) 01/09/2022,06/28/2021,11/10/2020,10/21 Pneumococcal Conjugate Vacc, 13 Valent (Prevnar) [...] Description 04/14/2024 10:10 AM EDT Laboratory Laboratory [facility] 200 [facility] [place], [place] [phone] Tammy, Lab [facility] 200 [facility] [place], [place] [address] 04/14/2024 10:30 AM EDT Office Visit Hematology/Oncology [facility] [address] [facility] [place], [place] [phone] Romel Perez MD 200 [facility] [place] [address] 04/14/2024 11:00 AM EDT Hem/Onc Treatment Hematology/Oncology Treatment, [address] [place] [phone] Tammy, Chair 9 Hem On[address] [place], [place] [address] 05/14/2024 10:00 AM EDT Office Visit Palliative Medicine [address] [place] [phone] Mary Mayfield MD [address] [place] [address] Health Maintenance Due Date Last Done Comments Depression Screening 1957 Albumin/Creatinine Ratio 02/07/1964 CKD PHOS USE SMARTSET 76833 02/07/1964 Zoster Vaccines (2 of 3) 10/29/2013 09/03/2013 COVID-19 Vaccine ( season) 2023 01/09/2022, 06/28/2021, 11/10/2020, Additional history exists Influenza Vaccine (FLU shot) (#1) 2024 09/05/2023, 09/05/2023, 06/27/2022, Additional history exists GFR 10/02/2024 04/01/2024, 07/0 10/2023, 03/11/2024, Additional history exists CKD HGB USE SMARTSET 53378 04/01/202504/01, 04/01/2024, 03/18/2024, Additional history exists DTaP,Tdap,and [...] this encounter Medical Devices Implanted Type Area Ship Erector Device Identifier Shelf Expiration Date Model / Serial / Lot Port Implant W/8f Poly Cath - [id number] Implanted:Qty : 1 on 09/21/2023 by Phill Patrick MD at OR [facility] Right: Chest CR BARD : PERIPHERAL VASCULAR [id number] 08/16/2024 [id number] / / [id number] documented as of this encounter Advance Directives Documents on File Type Date Recorded Patient Steam Trap Worker Expl anation POLST 12/13/2023 10:22 AM POLST [...] the patient have Health Care Power of Local Intermodal Truck Driver? Yes, not currently available * Full Code [...] Power of Attor panchito? No Care Teams Project Design Engineer Relationship Specialty Start Date End Date Elissa Carrero MD [address] [address] PCP - General Family Medicine 12/29/22 documented as of this encounter
--- OUTSIDE RECORDS SUMMARY | 2024-04-28 12:37 | External Medical Summary ---
Author Name Unknown Address Unknown Organization K09[facility] [place] [address] Laboratory Report Ordering Provider Test Date Status PENELOPE WALLACE 04/14/2024 10:13:13 Final Observation Date Value Abnormality Reference (Units ) Status WBC, Total 04/14/2024 10:13:13 9.91 4.00-10.8 0 (K/uL) Final RBC 04/14/2024 10:13:13 4.50 4.50-5.25 (M/uL) Final Hemoglobin 04/14/2024 10:13:13 13.0 Below low normal 14 .0-16.8 (g/dL) Final HCT 04/14/2024 10:13:13 40.1 40.0-48.4 (%) Final MCV 04/14/2024 10:13:13 89.1 82.0-99.5 (fL) Final MCH 04/14/2024 10:13:13 28.9 27.0-34.0 (pg) Final MCHC 04/14/2024 10:13:13 32.4 32.0-36.0 (g/dL) Final RDW 04/14/2024 10:13:13 17.7 11.5-15.5 (%) Final Platelets 04/14/2024 10:13:13 313 140-400 (K /uL) Final MPV 04/14/2024 10:13:13 10.1 6.6-11.1 ( fL) Final Performing Location [facility] [place] [address]
--- OUTSIDE RECORDS SUMMARY | 2024-04-28 12:37 | External Medical Summary | Summary of Care ---
Author Name Unknown Organization [facility] Address [address] [facility] [place] [address] Care Team Providers Care Chief Administrative Officer Name Role Phone Elissa Carrero MD Primary Care Provider Reason for Visit * Reason Onset Date Comments Medication Refill 04/23/2024 Encounter Details Date Type Department Care Team (Late st Contact Info) Description 04/23/2024 Refill Family Medicine, [facility] EMSO [address] [facility] [address] [place] [phone] Elissa Carrero MD [address] [facility] [place] [address] [facility] [place] [address] Chronic low back pain, unspecified back pain laterality, unspecified whether sciatica present* Allergies Active Allergy Reactions Criticality Noted Date [...] the morning. 2000 mL 2 04/02/2024 Active traMADol HCl 50 MG Oral Tablet (Ultram)Indicatio ns:Chronic low back pain, unspecified back pain laterality, unspecified whether sciatica present Take 1 Tablet by mouth every 8 hours as needed for Pain, Moderate. 90 Tablet 2 04/23/2024 Active traMADol HCl 50 MG Oral Tablet [...] mRNA, LNP-s, No Pre serve, 2-Dose Series ([employer]) 01/09/2022,06/28/2021,11/10/2020,10/21 Pneumococcal Conjugate Vacc, 13 Valent (Prevnar) [...] encounter Miscellaneous Notes * Telephone Encounter - Elissa Carrero MD - 04/23/2024 5:04 PM EDT Signed Prescriptions: Disp Refills traMADol HCl 50 MG Oral Tablet (Ultram) 90 Tab*2 Sig: Take 1 Tablet by mouth every 8 hours as needed for Pain, Moderate.Authorizing Provider: ELISSA CARRERO- documented in this encounter Plan of Treatment Upcoming Encounters Date Type Department Care Team (Late st Contact Info) Description 04/29/2024 11:50 AM EDT Laboratory Laboratory [facility] Tammy [place] [address] [place] [phone] Tammy, Lab [facility] [address] [place] [address] 04/29/2024 12:30 PM EDT Office Visit Hematology/Oncology [facility] Tammy [place] [address] [place] [phone] Romel Perez MD [address] [place] [address] 04/29/2024 1:00 PM EDT Hem/Onc Treatment Hematology/Oncology Treatment, [place] [address] [place] [phone] Tammy, Chair 7 Hem Onc [facility] [place] [address] [address] 05/14/2024 10:00 AM EDT Office Visit Palliative Medicine [facility] 200 [place] [phone] Mary Mayfield MD [address] [place] [address] [place] [address] Health Maintenance Due Date Last Done Comments Depression Screening 1957 Albumin/Creatinine Ratio 02/07/1964 CKD PHOS USE SMARTSET 40773 02/07/1964 Zoster Vaccines (2 of 3) 10/29/2013 09/03/2013 COVID-19 Vaccine ( season) 2023 01/09/2022, 06/28/2021, 11/10/2020, Additional history exists Influenza Vaccine (FLU shot) (#1) 2024 09/05/2023, 09/05/2023, 06/27/2022, Additional history exists GFR 10/15/2024 04/14/2024, 03/17, 03/18/2024, Additional history exists CKD HGB USE SMARTSET 89464 04/14/202504/14, 04/14/2024, 04/01/2024, Additional history exists DTaP,Tdap,and [...] this encounter Medical Devices Implanted Type Area Placing Judge Device Identifier Shelf Expiration Date Model / Serial / Lot Port Implant W/8f Poly Cath - [id number] Implanted:Qty : 1 on 09/21/2023 by Phill Patrick MD at OR [facility] Right: Chest CR BARD : PERIPHERAL VASCULAR [id number] 08/16/2024 [id number] / / [id number] documented as of this encounter Visit Diagnoses Diagnosis Chronic low back pain, unspecified back pain laterality, unspecified whether sciatica present- Primary documented in this encounter Advance Directives Documents on File Type Date Recorded Patient Circuit Designer Expl anation POLST 12/13/2023 10:22 AM POLST [...] the patient have Health Care Power of Carpenter Inspector? Yes, not currently available * Full Code [...] Power of Attor panchito? No Care Teams Chief Administrative Officer Relationship Specialty Start Date End Date Elissa Carrero MD [address] [address] PCP - General Family Medicine 12/29/22 documented as of this encounter
--- OUTSIDE RECORDS SUMMARY | 2024-04-28 12:37 | External Medical Summary | Summary of Care ---
Author Name Unknown Organization [facility] Address [address] [facility] [place] [address] Phone [phone] Care Team Providers Care Tank Cleaner Name Role Phone Elissa Carrero MD Primary Care Provider Reason for Visit * Reason Comments Chemotherapy C2/D8 - Trodelvy * Episode Based Medications (Routine) - Authorized Specialty Diagnoses / Procedures Referred By Contcarl t Referred To Contact Diagnoses Cancer of left renal pelvis (HCC) Encounter for antineoplastic chemotherapy Malignant neoplasm of overlapping sites of bladder (HCC) Procedures MO FOSAPREPITANT INJECTION MO SACITUZUMAB GOVITECAN-HZIY Romel Perez MD [address] [place] [address] [place] [address] Anc Hem/Onc [address] [address] Referral ID Status Reason Start Date Expiration Date V isits Requested Visits Authorized [id number] Authorized 02/04/2024 09/16/2099 [id number] Encounter Details Date Type Department Care Team (Latest Contact Info) Description 03/18/2024 1:00 PM EDT Hem/Onc Treatment Hematology/Oncolog y Treatment, [address] [phone] Tammy, Chair 11 Hem On[address] [place] [address] Cancer of left renal pelvis (HCC)*; Encounter [...] Description 04/29/2024 11:50 AM EDT Laboratory Laboratory [facility] 200 [facility] [place], [place] [phone] Tammy, Lab [address] [place], [place] [address] 04/29/2024 12:30 PM EDT Office Visit Hematology/Oncology [facility] [address] [place], [place] [phone] Romel Perez MD 200 [place] [address] 04/29/2024 1:00 PM EDT Hem/Onc Treatment Hematology/Oncology Treatment, [address] [place] [phone] Tammy, Chair 7 Hem Onc [address] [place], [place] [address] 05/14/2024 10:00 AM EDT Office Visit Palliative Medicine [address] [place] [phone] Mary Mayfield MD [address] [place] [address] Health Maintenance Due Date Last Done Comments Depression Screening 1957 Albumin/Creatinine Ratio 02/07/1964 CKD PHOS USE SMARTSET 54527 02/07/1963 Zoster Vaccines (2 of 3) 10/29/2013 09/03/2013 COVID-19 Vaccine ( season) 2023 01/09/2022, 06/28/2021, 11/10/2020, Additional history exists Influenza Vaccine (FLU shot) (#1) 2024 09/05/2023, 09/05/2023, 06/27/2022, Additional history exists GFR 10/15/2024 04/14/2024, 03/17, 03/18/2024, Additional history exists CKD HGB USE SMARTSET 69810 04/14/202504/14, 04/14/2024, 04/01/2024, Additional history exists DTaP,Tdap,and [...] this encounter Medical Devices Implanted Type Area Childcare Attendant Device Identifier Shelf Expiration Date Model / Serial / Lot Port Implant W/8f Poly Cath - [id number] Implanted:Qty : 1 on 09/21/2023 by Phill Patrick MD at OR [facility] Right: Chest CR BARD : PERIPHERAL VASCULAR [id number] 08/16/2024 [id number] / / [id number] documented as of this encounter Visit Diagnoses [...] Documents on File Type Date Recorded Patient Motel Food Service Supervisor Melody mitchell POLST 12/13/2023 10:22 AM POLST [...] the patient have Health Care Power of Senior Systems Administrator? Yes, not currently available * Full Code [...] Power of Attor panchito? No Care Teams Tank Cleaner Relationship Specialty Start Date End Date Elissa Carrero MD [address] [place] [address] [place] [address] PCP - General Family Medicine 12/29/22 documented as of this encounter
--- OUTSIDE RECORDS SUMMARY | 2024-04-28 12:37 | External Medical Summary | Summary of Care ---
Author Name Unknown Organization [facility] Address [address] [place] [place] [address] Phone [phone] Care Team Providers Care Senior Art Director Name Role Phone Elissa Carrero MD Primary Care Provider Reason for Visit * Reason Comments Chemotherapy C2/D8 - Trodelvy * Episode Based Medications (Routine) - Authorized Specialty Diagnoses / Procedures Referred By Contcarl t Referred To Contact Diagnoses Cancer of left renal pelvis (HCC) Encounter for antineoplastic chemotherapy Malignant neoplasm of overlapping sites of bladder (HCC) Procedures LA FOSAPREPITANT INJECTION LA SACITUZUMAB GOVITECAN-HZIY Romel Perez MD [address] [place] [address] [place] [address] Anc Hem/Onc [address] [address] Referral ID Status Reason Start Date Expiration Date V isits Requested Visits Authorized [id number] Authorized 02/04/2024 09/16/2099 [id number] Encounter Details Date Type Department Care Team (Latest Contact Info) Description 03/18/2024 1:00 PM EDT Hem/Onc Treatment Hematology/Oncolog y Treatment, [address] [phone] Tammy, Chair 11 Hem Onc [address] [place] [address] Cancer of left renal pelvis (HCC)*; Encounter [...] Description 04/29/2024 11:50 AM EDT Laboratory Laboratory [facility] 200 [facility] [place], [place] [phone] Tammy, Lab [address] [place], [place] [address] 04/29/2024 12:30 PM EDT Office Visit Hematology/Oncology [facility] [address] [place], [place] [phone] Romel Perez MD 200 [facility] [address] 04/29/2024 1:00 PM EDT Hem/Onc Treatment Hematology/Oncology Treatment, [address] [place] [phone] Tammy, Chair 7 Hem Onc [address] [place], [place] [address] 05/14/2024 10:00 AM EDT Office Visit Palliative Medicine [address] [place] [phone] Mary Mayfield MD [address] [place] [address] Health Maintenance Due Date Last Done Comments Depression Screening 1957 Albumin/Creatinine Ratio 02/07/1964 CKD PHOS USE SMARTSET 29122 02[birth year]07/1963 Zoster Vaccines (2 of 3) 10/29/2013 09/03/2013 COVID-19 Vaccine ( season) 2023 01/09/2022, 06/28/2021, 11/10/2020, Additional history exists Influenza Vaccine (FLU shot) (#1) 2024 09/05/2023, 09/05/2023, 06/27/2022, Additional history exists GFR 10/15/2024 04/14/2024, 03/17, 03/18/2024, Additional history exists CKD HGB USE SMARTSET 71162 04/14/202504/14, 04/14/2024, 04/01/2024, Additional history exists DTaP,Tdap,and [...] this encounter Medical Devices Implanted Type Area News Writer Device Identifier Shelf Expiration Date Model / Serial / Lot Port Implant W/8f Poly Cath - [id number] Implanted:Qty : 1 on 09/21/2023 by Phill Patrick MD at OR [facility] Right: Chest CR BARD : PERIPHERAL VASCULAR [id number] 08/16/2024 [id number] / / [id number] documented as of this encounter Visit Diagnoses [...] Documents on File Type Date Recorded Patient Seamer Operator Melody mitchell POLST 12/13/2023 10:22 AM POLST [...] the patient have Health Care Power of Manager Molecular? Yes, not currently available * Full Code [...] of Attor panchito? No Care Teams Senior Art Director Relationship Specialty Start Date End Date Elissa Carrero MD [address] [place] [address] [place] [address] PCP - General Family Medicine 12/29/22 documented as of this encounter
--- OUTSIDE RECORDS SUMMARY | 2024-04-28 12:37 | External Medical Summary | Summary of Care ---
Author Name Unknown Organization [facility] Address [address] [facility] [place] [address] Phone [phone] Care Team Providers Care Steel Rule Die Maker Apprentice Name Role Phone Elissa Carrero MD Primary Care Provider Reason for Visit * Reason Comments Follow Up Treatment Encounter Details Date Type Department Care Team (Late st Contact Info) Description 04/14/2024 10:30 AM EDT Office Visit Hematology/Oncology [place] Derrick Sanchez [address] [facility] [place] [phone] Romel Perez MD [address] [facility] [place] [address] Cancer of left renal pelvis (HCC)* Allergies [...] mRNA, LNP-s, No Pre serve, 2-Dose Series (Conject) 01/09/2022,06/28/2021,11/10/2020,10/21 Pneumococcal Conjugate Vacc, 13 Valent (Prevnar) [...] 0 09/17/1968 - 09/17/2001 Smokeless Tobacco: Never Tobacco Cessation:Counseling Given: [...] Sign Reading Time Taken Comments Blood Pressure 119/81 04/14/2024 10:19 AM EDT Pulse 89 04/14/2024 10:19 AM EDT Temperature 36.1 C (97 F) 04/14/2024 10:19 AM EDT Respiratory Rate - - Oxygen Saturation 93% 04/14/2024 10:19 AM EDT Inhaled Oxygen Concentration - - Weight 62.6 kg (138 lb) 04/14/2024 10:19 AM EDT Height - - Body Mass Index 23.69 03/13/2024 11:32 AM EDT documented in this [...] Progress Notes * Romel Perez MD - 04/14/2024 10:34 AM EDT Outpatient Consult Note Data Source: Patient, Epic record. Data Source: Patient, Epic record. 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 Current Treatment: Sacituzumab govitecan-hziy (Trodelvy) Previous Treatment: Status post left radical nephroureterectomy. Received 4 cycles of adjuvant chemotherapy including combination of gemcitabine and carboplatin. Received last dose on 09/28/2022. Keytruda, received total of 3 cycles and had disease progression (09/24/2023 to 11/26/2023). Enfortumab vedotin 12/03/2023 to 01/21/2024 Oncologic History : 79-year-old male with a past medical history significant [...] report and this development is not surprising. Follow-up CT scan done on 08/31/2023 unfortunately [...] increased objective response rate in a He had cystoscopy done on 08/29/2023 and was negative. Urine cytology is also negative. He was admitted to the hospital on 11/19/2023 complaint of increasing shortness of breath and generalized weakness. CT scan revealed multiple pulmonary nodules, hepatic metastasis and large left pleural effusion. Patient was evaluated by the pulmonary service and had left thoracocentesis done and cytology is positive for metastatic malignant cells consistent with metastatic urothelial carcinoma. FINAL DIAGNOSIS Pleural fluid, left pleural cavity (cytologic analysis): - Metastatic carcinoma consistent with metastatic urothelial carcinoma is seen. - Please see microscopic description. Screened by on at . at 1231 CT scan of the abdomen pelvis revealed enlarged retroperitoneal lymph nodes with hepatic metastasis. Markers Tumor Mutational [place] (TMB): TMB Unit [place] 6.63 m/MB Low Microsatellite Instability Status (MSI): MSI Status 0.32 Stable Result Detail Tier I: Strong Significance Variants NONE Tier II: Potential Significance Variants Single Nucleotide Variants and Insertions/Deletions Gene Variant Tier Amino Acid Change Nucleotide Change Consequence Allele Frequency Sequencing Depth KMT2D H1820Pqn*19 Tier 2: Potential significance p.[id number] NM_003482.4: c.8301delT Frameshift Variant 25% 1975 KMT2D K287* Tier 2: Potential significance p.[id number] NM_003482.4: c.858_859insT Nonsense 22.3% 1991 TP53 R337C Tier 2: Potential significance p.Jbm344Dha NM_000546.6: c.1009C>T Missense Variant 22% 1999 TP53 H179R Tier 2: Potential significance p.Vce571Zmy NM_000546.6: c.536A>G Missense Variant 10.9% 1829 Interval History: Overall he is feeling better with improvement in the appetite since the start of megestrol acetate.He continues to complain generalized weakness and fatigue. LABS/IMAGING: Results for orders placed or performed in visit on 04/14/24 CBC Result Value Ref Range WBC 9.91 4.00 - 10.80 K/uL RBC 4.50 4.50 - 5.25 M/uL HGB 13.0 (L) 14.0 - 16.8 g/dL HCT 40.1 40.0 - 48.4 % MCV 89.1 82.0 - 99.5 fL MCH 28.9 27.0 - 34.0 pg MCHC 32.4 32.0 - 36.0 g/dL RDW 17.7 11.5 - 15.5 % PLT 313 140 - 400 K/uL MPV 10.1 6.6 - 11.1 fL DIFFERENTIAL, AUTOMATED Result Value Ref Range WBC 9.91 4.00 - 10.80 K/uL Neutrophils % 73.4 40.0 - 75.0 % Lymphocytes % 10.0 (L) 18.0 - 42.0 % Monocytes % 15.2 (H) 1.0 - 11.0 % Eosinophils % 1.2 0.0 - 6.0 % Basophils % 0.2 0.0 - 2.0 % Absolute Neutrophils 7.27 1.80 - 7.70 K/uL Absolute Lymphocytes 0.99 (L) 1.00 - 4.80 K/ul Absolute Monocytes 1.51 (H) 0.00 - 1.10 K/uL Absolute Eosinophils 0.12 0.00 - 0.70 K/uL Absolute Basophils 0.02 0.00 - 0.20 K/uL Result of the blood counts and electrolytes are in acceptable range with normal LFTs. Albumin levelhas decreased to 3.1. REVIEW OF SYSTEMS: General: No Fever, chills, night sweats, or weight loss. HEENT: No change in visual acuity, blurred or double vision. No epistaxis, facial pain, nasal discharge or change in hearing. Denies dysphagia, no muscosal ulceration, or sores noted. Cardiovascular: No chest pain, [place], or palpitations Respiratory: c/o shortness of breath, No cough, hemoptysis, or pleuritic chest pain Gastrointestinal: No abdominal pain, nausea, vomiting, diarrhea, rectal pain or bleeding Genitourinary: Denies Hematuria or dysuria Musculoskeletal: No bone pain Psychiatric: No vegetative signs of depression [...] Medication Sig Dispense Refill MULTIVITAMINS PO TABS Take by mouth once. Takes at night Diclofenac Sodium 1 % gel Place topically on the skin. traMADol HCl 50 MG Oral Tablet (Ultram) Take 1 Tablet by mouth every 8 hours as needed for Pain, Moderate. 90 Tablet 2 Lidocaine 5 % External Patch (Lidoderm) Place 1 Patch topically on the skin daily as needed (pain).90 Patch 3 Gabapentin 600 MG Oral Tablet (Neurontin) 2 tablets in the morning, 1 tablet in the afternoon, 2 tablets in the evening 450 Tablet 3 Famotidine 40 MG Oral Tablet (Pepcid) Take 1 Tablet by mouth at bedtime as needed for Heartburn. 90Tablet 3 Lidocaine-Prilocaine 2.5-2.5 % External Cream (Emla) APPLY TO SKIN OVER MEDIPORT & COVER 1HR PRIOR TO ACCESSING. 30 g 1 Aspirin 81 MG Oral Capsule Take 1 Tablet by mouth every evening. oxyCODONE-Acetaminophen 5-325 MG Oral Tablet (Percocet) Take 1 Tablet by mouth every 4 hours as needed for Pain, Moderate. 30 Tablet 0 Prochlorperazine Maleate 10 MG Oral Tablet (Compazine) Take 1 Tablet by mouth every 6 hours as needed for Nausea. 30 Tablet 2 Ondansetron HCl 8 MG Oral Tablet Take 1 Tablet by mouth every 8 hours as needed for Nausea. 30 Tablet 2 dexAMETHasone 2 MG Oral Tablet (Decadron) Take 1 Tablet by mouth daily with breakfast. 14 Tablet 0 Diclofenac Sodium 50 MG Oral Tablet Delayed Release (Voltaren) FOUR TIMES DAILY MultiVitamin + Fluoride 0.25 MG Oral Tablet Chewable 1 Tablet. Tamsulosin HCl 0.4 MG Oral Capsule (Flomax) Take 1 Capsule by mouth every evening. 90 Capsule 5 Modafinil 100 MG Oral Tablet (Provigil) Take 1 Tablet by mouth daily as needed (fatigue). 90 Tablet1 Hydrocortisone 2.5 % External Cream Administer into the rectum 2 times a day. Apply To rectum twicedaily as needed for pain 20 g 3 Megestrol Acetate 625 MG/5ML Oral Suspension Take 625 mg by mouth in the morning. 2000 mL 2 No current facility-administered medications for this visit. Social History Tobacco Use Smoking status: Former Current packs/day: 0.00 Average packs/day: 3.0 packs/day for 33.0 years (99.0 ttl pk-yrs) Types: Cigarettes Start date: 09/17/1968 Quit date: 09/17/2001 Years since quittin.5 Smokeless tobacco: Never Vaping Use Vaping status: Never Used Substance Use Topics Alcohol use: Yes Comment: rarely Drug use: No Review of patient's allergies indicates: Allergen Reactions Lisinopril Other reaction(s): Angioedema Piroxicam Other reaction(s): muscle spasms PHYSICAL EXAMINATION: General Appearance: Healthy appearing patient in no acute distress BP 119/81 (BP Site: Left Arm, BP Position: Sitting, BP Cuff Size: Regular) | Pulse 89 | Temp 36.1 C (97 F) (Tympanic) | Wt 62.6 kg (138 lb) | SpO2 93% | BMI 23.69 kg/m | BSA 1.68 m Vitals reviewed. HEENT: No oral or pharyngeal masses, ulceration or thrush noted, no sinus tenderness. Neck is supple with no thyromegaly or JVD noted. Lymph Nodes: No lymphadenopathy noted in the occipital, pre and post auricular, cervical, supra andinfraclavicular, axillary, epitrochlear, inguinal, and popliteal region. Lungs/Thorax: Decreased breath sounds in the left lower lung field, no accessory muscles of respiration being used. Heart: Regular rate and rhythm, normal S1, S2 Abdomen: Soft, nontender, bowel sounds present, no appreciable hepatosplenomegaly, no palpable masses Extremeties: Good pulses bilaterally, no peripheral edema. ASSESSMENT: 79-year-old male with past medical history significant for [...] to issues with chronic back pain. Patient had stage pT3 NX (no lymph nodes were [...] metastatic disease and need systemic treatment. He had follow-up CT scan done which shows disease progression. He was treated with Keytruda, received total of 3 doses with overall good tolerance. He was admitted recent to hospital with increasing shortness of breath and found to have new left-sided pleural effusion with liver and lung metastasis. He had thoracocentesis done and pleural fluid is positive for metastatic cancer. Patient had disease progression while receiving Keytruda. Subsequently he was treated with Enfortumab vedotin. Unfortunately follow-up PET scan shows diseaseprogression. Currently he is on Trodelvy. Currently his treatment is on hold because of the deteriorating and the general condition and performance status. He is feeling better since the start of megestrol acetate with improvement in appetite. He continues to feel weak and tired and fatigued. His blood counts are in acceptable range. Again discussed with the patient in detail about diagnosis and prognosis. Patient has incurable disease. He is planning to go on vacation for 2 weeks. For now I will continue to hold his treatment and he will continue megestrol acetate. Further management will depend on his overall general condition and performance status. PLAN: Continue hold treatment. He will return clinic for follow-up in 2 weeks with CBC and CMP. The patient voiced understanding of all of [...] in this encounter Nursing Notes * Libia Alvarado MED ASSIST - 04/14/2024 10:24 AM EDT Patient identifed by name and birthdate Do you have any concerns about pain management for today's visit? Yes. Patient instructed to discuss pain concerns with provider during the visit today Living Will or Advance Directive for Health Care as noted on the problem list. [facility] is a way you can talk to your provider on line through e-mail. Would you like to sign up? I can activate it for you? ALREADY ACTIVE Filed Vitals: 04/14/24 1019 BP: 119/81 Pulse: 89 Temp: 36.1 C (97 F) TempSrc: Tympanic SpO2: 93% Weight: 62.6 kg (138 lb) Patient was instructed to not get up [...] Description 04/29/2024 11:50 AM EDT Laboratory Laboratory [facility] [address] [facility] [place], [place] [phone] Tammy, Lab [facility] [address] [facility] [place] [address] 04/29/2024 12:30 PM EDT Office Visit Hematology/Oncology [facility] [place] [address] [facility] [place] [phone] Romel Perez MD [address] [facility] [place] [address] 04/29/2024 1:00 PM EDT Hem/Onc Treatment Hematology/Oncology Treatment, [address], [place] [phone] Tammy, Chair [address] Hem On[address] [place], [place] [address] 05/14/2024 10:00 AM EDT Office Visit Palliative Medicine [facility] [address], [place] [phone] Mary Mayfield MD [address] [place] [id number] Scheduled Orders Name Type Priority Associated Diagnoses Orde r Schedule CBC WITH WBC DIFFERENTIAL Lab Routine Cancer of left renal pelvis (HCC) Expected: 04/29/2024, Expires: 04/14/2025 COMPREHENSIVE METABOLIC PANEL Lab Routine Cancer of left renal pelvis (HCC) Expected: 04/29/2024, Expires: 04/14/2025 LD Lab Routine Cancer of left renal pelvis (HCC) Expected: 04/29/2024, Expires: 04/14/2025 Health Maintenance Due Date Last Done Comments Depression Screening 1957 Albumin/Creatinine Ratio 02/07/1964 CKD PHOS USE SMARTSET 44882 02/07/1963 Zoster Vaccines (2 of 3) 10/29/2013 09/03/2013 COVID-19 Vaccine ( season) 2023 01/09/2022, 06/28/2021, 11/10/2020, Additional history exists Influenza Vaccine (FLU shot) (#1) 2024 09/05/2023, 09/05/2023, 06/27/2022, Additional history exists GFR 10/15/2024 04/14/2024, 03/17, 03/18/2024, Additional history exists CKD HGB USE SMARTSET 36383 04/14/202504/14, 04/14/2024, 04/01/2024, Additional history exists DTaP,Tdap,and [...] this encounter Medical Devices Implanted Type Area Radiological Defense Officer Device Identifier Shelf Expiration Date Model / Serial / Lot Port Implant W/8f Poly Cath - [id number] Implanted:Qty : 1 on 09/21/2023 by Phill Patrick MD at [facility] Right: Chest CR BARD : PERIPHERAL VASCULAR [id number] 08/16/2024 [id number] / / [id number] documented as of this encounter Visit Diagnoses Diagnosis Cancer of left renal pelvis (HCC)- Primary documented in this encounter Advance Directives Documents on File Type Date Recorded Patient Adobe Developer Expl anation POLST 12/13/2023 10:22 AM POLST [...] the patient have Health Care Power of Conference Organizer? Yes, not currently available * Full Code [...] Power of Attor panchito? No Care Teams Steel Rule Die Maker Apprentice Relationship Specialty Start Date End Date Elissa Carrero MD [address] [address] PCP - General Family Medicine 12/29/22 documented as of this encounter"
--- OUTSIDE RECORDS SUMMARY | 2024-04-28 12:37 | External Medical Summary | Summary of Care ---
Author Name Unknown Organization [facility] Address [address] [place] [address] Phone [phone] Care Team Providers Care Bandsaw Operator Name Role Phone Elissa Carrero MD Primary Care Provider Encounter Details Date Type Department Care Team (Late st Contact Info) Description 04/12/2024 Orders Only Hematology/Oncology, [address] [address] Romel Perez MD [address] [place] [address] Allergies Active Allergy Reactions Criticality Noted Date Comments Lisinopril 07/04/2019 Other reaction(s): Angioedema Piroxicam 10/25/2022 Other reaction(s): muscle spasms documented as of this encounter (statuses as of 04/12/2024) Medications Medication Sig Dispensed Refills Start Date [...] as of this encounter (statuses as of 04/12/2024) Active Problems Problem Noted Date Diagnosed Date [...] as of this encounter (statuses as of 04/12/2024) Resolved Problems Problem Noted Date Diagnosed Date Resolved Date Stage 3a chronic kidney disease 10/27/2022 01/24/2023 Overview: Per CKD protocol documented as of this encounter (statuses as of 04/12/2024) Immunizations Name Administration Dates Next Due COVID-19 mRNA, LNP-s, No Pre serve, 2-Dose Series (Drillinginfo) 01/09/2022,06/28/2021,11/10/2020,10/21 Pneumococcal Conjugate Vacc, 13 Valent (Prevnar) [...] Description 04/14/2024 10:10 AM EDT Laboratory Laboratory [address] [place], [place] [phone] Tammy, Lab [address] [place], [place] [address] 04/14/2024 10:30 AM EDT Office Visit Hematology/Oncology [address] [place], [place] [phone] Rmoel Perez MD [address] [facility] [place] [address] 04/14/2024 11:00 AM EDT Hem/Onc Treatment Hematology/Oncology Treatment, [address] [place] [phone] Tammy, Chair 9 Hem Onc [address] [place], [place] [address] 05/14/2024 10:00 AM EDT Office Visit Palliative Medicine [address] [place] [phone] Mary Mayfield MD [address] [place] [phone] Health Maintenance Due Date Last Done Comments Depression Screening 1957 Albumin/Creatinine Ratio 02/07/1964 CKD PHOS USE SMARTSET 61565 02/07/1963 Zoster Vaccines (2 of 3) 10/29/2013 09/03/2013 COVID-19 Vaccine ( season) 2023 01/09/2022, 06/28/2021, 11/10/2020, Additional history exists Influenza Vaccine (FLU shot) (#1) 2024 09/05/2023, 09/05/2023, 06/27/2022, Additional history exists GFR 10/02/2024 04/01/2024, 07/0 10/2023, 03/11/2024, Additional history exists CKD HGB USE SMARTSET 94026 04/01/202504/01, 04/01/2024, 03/18/2024, Additional history exists DTaP,Tdap,and [...] this encounter Medical Devices Implanted Type Area Fire Extinguisher Sprinkler Inspector Device Identifier Shelf Expiration Date Model / Serial / Lot Port Implant W/8f Poly Cath - [id number] Implanted:Qty : 1 on 09/21/2023 by Phill Patrick MD at [facility] Right: Chest CR BARD : PERIPHERAL VASCULAR [id number] 08/16/2024 [id number] / / [id number] documented as of this encounter Advance Directives Documents on File Type Date Recorded Patient Hospital Unit Clerk Expl anation POLST 12/13/2023 10:22 AM POLST [...] the patient have Health Care Power of Repairer Hairspring? Yes, not currently available * Full Code [...] Power of Attor panchito? No Care Teams Bandsaw Operator Relationship Specialty Start Date End Date Elissa Carrero MD [address] [place] [address] PCP - General Family Medicine 12/29/22 documented as of this encounter
--- OUTSIDE RECORDS SUMMARY | 2024-04-28 12:37 | External Medical Summary ---
Author Name Unknown Address Unknown Organization [facility] [place] [address] Laboratory Report Ordering Provider Test Date Status PENELOPE WALLACE 04/14/2024 10:13:13 Final Observation Date Value Abnormality Reference (Units ) Status BUN 04/14/2024 10:13:13 16 6-20 (mg/dL) Final Creatinine 04/14/2024 10:13:13 1.2 0.6-1.2 (mg/dL) Final Glomerular filtration rate/1.73 sq M.predicted [Volume Rate/Area] in Serum, Plasma or Blood by Creatinine-based formula (CKD-EPI) 04/14/2024 10:13:13 64 >=60 (mL/min) Final eGFR is calculated based on the CKD-EPI 2020 equation. Sodium 04/14/2024 10:13:13 135 135-146 (m mol/L) Final Potassium 04/14/2024 10:13:13 4.3 3.5-5.1 (m mol/L) Final Cl 04/14/2024 10:13:13 103 98-107 (mm ol/L) Final CO2 04/14/2024 10:13:13 18 Below low normal 22- 32 (mmol/L) Final Anion gap 04/14/2024 10:13:13 14 7-15 (mmol /L) Final Glucose 04/14/2024 10:13:13 85 70-120 (mg /dL) Final Albumin 04/14/2024 10:13:13 3.1 Below low normal 3.8 -5.0 (g/dL) Final AST (Aspartate aminotransferase) 04/14/2024 10:13:13 29 10-50 (U/L) Fin al Alk Phos 04/14/2024 10:13:13 242 Above high normal 35 -130 (U/L) Final Bilirubin, Total 04/14/2024 10:13:13 0.5 <=1 .2 (mg/dL) Final Calcium 04/14/2024 10:13:13 8.9 8.4-10.2 ( mg/dL) Final Protein 04/14/2024 10:13:13 6.3 6.0-8.3 (g /dL) Final ALT (Alanine aminotransferase) 04/14/2024 10:13:13 10 10-50 (U/L) Frantz kirkpatrick Performing Location [facility] [address] [place] [address]
--- OUTSIDE RECORDS SUMMARY | 2024-04-28 12:38 | External Medical Summary | Summary of Care ---
Author Name Unknown Organization [facility] Address [address] [facility] [place] [address] Phone [phone] Care Team Providers Care Transportation Worker Name Role Phone Elissa Carrero MD Primary Care Provider Reason for Visit * Reason Onset Date Comments Advice 03/26/2024 Encounter Details Date Type Department Care Team (Late st Contact Info) Description 03/26/2024 Telephone Hematology/Oncology [facility] Tammy [place] 200 [facility] [place] [phone] Romel Perez MD 200 [facility] [place] [address] Advice Allergies Active Allergy Reactions Criticality Noted Date Comments Lisinopril 07/04/2019 Other reaction(s): Angioedema Piroxicam 10/25/2022 Other reaction(s): muscle spasms documented as of this encounter (statuses as of 03/27/2024) Medications Medication Sig Dispensed Refills Start Date [...] for pain 20 g 3 03/13/2024 Active documented as of this encounter (statuses as of 03/27/2024) Active Problems Problem Noted Date Diagnosed Date [...] as of this encounter (statuses as of 03/27/2024) Resolved Problems Problem Noted Date Diagnosed Date Resolved Date Stage 3a chronic kidney disease 10/27/2022 01/24/2023 Overview: Per CKD protocol documented as of this encounter (statuses as of 03/27/2024) Immunizations Name Administration Dates Next Due COVID-19 mRNA, LNP-s, No Pre serve, 2-Dose Series ([employer]) 01/09/2022,06/28/2021,11/10/2020,10/21 Pneumococcal Conjugate Vacc, 13 Valent (Prevnar) [...] Telephone Encounter - Troy Dominguez RN - 03/27/2024 11:12 AM EDT Scheduling- per Dr. Perez, would like to see patient prior to his infusion on 04/01. Please overbookpatient at 12:15 and call him to inform of visit with Dr. Perez that day. * Telephone Encounter - Troy Dominguez RN - 03/27/2024 10:10 AM EDT Pt was seen in ER yesterday and discharged. Dr. Perez - patient is scheduled for Trodelvy on 04/01, doesn't have a follow up with you until 04/08. Do you wish to see him when he comes that day? * Telephone Encounter - Troy Dominguez RN - 03/26/2024 4:02 PM EDT Pt calling stating that he hasn't been able to eat a lot for multiple days, has been coughing with some chest pain. Patient states he has no appetite. He has been having diarrhea at times but having at least uncontrolled diarrhea. Pt states he feels that he is severely dehydrated. SOB has been going on for at least 3 days. Denies fever. He has been having issues moving his urine. This RN advised patient to go to the closest ER for further evaluation. Pt asking if he can go tomorrow, I advised against this and recommended patient to be evaluated as soon as possible. Pt states he will go to [facility] ER after he showers. Dr. Perez- [facility]. documented in this encounter Plan of Treatment Upcoming Encounters Date Type Department Care Team (Late st Contact Info) Description 04/01/2024 12:00 PM EDT Laboratory Laboratory State Derrick Sanchez [address] [place] [phone] Francisco Munoz [address] [place] [address] 04/01/2024 1:00 PM EDT [facility] 200 [facility], [place] [phone] Park, Chair 1 Hem Onc [facility] 200 [facility] [place], [place] [address] 04/08/2024 8:20 AM EDT Laboratory Laboratory [facility] [place] 200 [facility] [place] [phone] Tammy, Lab [address] [place], [place] [address] 04/08/2024 9:00 AM EDT Office Visit Hematology/Oncology [facility] 200 [facility] [place], [place] [phone] Romel Perez MD 200 [facility] [address] 04/08/2024 9:30 AM EDT Hem/Onc Treatment Hematology/Oncology [facility] 200 [facility], [place] [phone] Park, Chair 9 Hem Onc [facility] 200 [facility] [place], [place] [address] 05/14/2024 10:00 AM EDT Office Visit Palliative Medicine [address], [place] [phone] Mary Mayfield MD [address] [place] [address] [place], [place] [phone] Health Maintenance Due Date Last Done Comments Depression Screening 1957 Albumin/Creatinine Ratio 02/07/1964 CKD PHOS USE SMARTSET 63038 02/07/1964 Zoster Vaccines (2 of 3) 10/29/2013 09/03/2013 COVID-19 Vaccine ( season) 2023 01/09/2022, 06/28/2021, 11/10/2020, Additional history exists Influenza Vaccine (FLU shot) (#1) 2024 09/05/2023, 09/05/2023, 06/27/2022, Additional history exists GFR 09/18/2024 03/18/2024, 02/16, 02/26/2024, Additional history exists CKD HGB USE SMARTSET 13205 03/18/202503/18, 03/18/2024, 03/11/2024, Additional history exists DTaP,Tdap,and Td Vaccines (3 [...] this encounter Medical Devices Implanted Type Area Pairing Machine Operator Device Identifier Shelf Expiration Date Model / Serial / Lot Port Implant W/8f Poly Cath - [id number] Implanted:Qty : 1 on 09/21/2023 by Phill Patrick MD at [facility] Right: Chest CR BARD : PERIPHERAL VASCULAR [id number] 08/16/2024 [id number] / / [id number] documented as of this encounter Advance Directives Documents on File Type Date Recorded Patient Assistant Winemaker Expl anation POL 12/13/2023 10:22 AM POL (kassie ba DNR) * Full Code (Latest Code Status on File) Date Activated Date Inactivated Comments 08/29/2023 9:51 AM 08/29/2023 4:02 PM This order reflects the patients wishes and were consensually agreed upon. Question Answer Comments Discussion of Advance Directives occurred with: Patient Does the patient have a Living Will? Yes, not cu rrently available Does the patient have Health Care Power of Insulation Technician? Yes, not currently available * Full Code [...] Power of Attor panchito? No Care Teams Transportation Worker Relationship Specialty Start Date End Date Elissa Carrero MD [address] [place] [address] PCP - General Family Medicine 12/29/22 documented as of this encounter
--- OUTSIDE RECORDS SUMMARY | 2024-04-28 12:38 | External Medical Summary | Summary of Care ---
Author Name Unknown Organization [facility] Address [address] [facility] [address] Phone [phone] Care Team Providers Care Manager Math Name Role Phone Elissa Carrero MD Primary Care Provider Reason for Visit * Reason Comments Outpatient Testing Encounter Details Date Type Department Care Team (Late st Contact Info) Description 04/01/2024 12:00 PM EDT Laboratory Laboratory [facility] [address] [place] [phone] [place], Lab Scenery [address] [place] [address] Bladder cancer (HCC) Allergies Active Allergy Reactions Criticality Noted Date Comments Lisinopril 07/04/2019 Other reaction(s): Angioedema Piroxicam 10/25/2022 Other reaction(s): muscle spasms documented as of this encounter (statuses as of 04/01/2024) Medications Medication Sig Dispensed Refills Start Date [...] as of this encounter (statuses as of 04/01/2024) Active Problems Problem Noted Date Diagnosed Date [...] as of this encounter (statuses as of 04/01/2024) Resolved Problems Problem Noted Date Diagnosed Date Resolved Date Stage 3a chronic kidney disease 10/27/2022 01/24/2023 Overview: Per CKD protocol documented as of this encounter (statuses as of 04/01/2024) Immunizations Name Administration Dates Next Due COVID-19 mRNA, LNP-s, No Pre serve, 2-Dose Series ([employer]) 01/09/2022,06/28/2021,11/10/2020,10/21 Pneumococcal Conjugate Vacc, 13 Valent (Prevnar) [...] Team (Late st Contact Info) Description 04/01/2024 1:00 PM EDT Hem/Onc Treatment Hematology/Oncology Treatment, [place] 200 [place] [phone] Tammy, Chair 1 Hem Onc Scenery 200 [facility] [place], [place] [address] Arrived 04/08/2024 8:20 AM EDT Laboratory Laboratory [facility] [address] [place], [place] [phone] Tammy, Lab [facility] 200 [facility] [place], [place] [address] 04/08/2024 9:00 AM EDT Office Visit Hematology/Oncology [facility] [address] [place], [place] [phone] Romel Perez MD [address] [place], [place] [address] 04/08/2024 9:30 AM EDT Hem/Onc Treatment Hematology/Oncology Treatment, [place] 200 [facility], [place] [phone] Tammy, Chair 9 Hem Onc [facility] 200 [place] [address] 05/14/2024 10:00 AM EDT Office Visit Palliative Medicine [facility] [place] 200 [facility], [place] [phone] Mary Mayfield MD [address] [place], [place] [address] [phone] Pending Results Name Type Priority Associated Diagnoses Date /Time COMPREHENSIVE METABOLIC PANEL Lab STAT Bladder cancer (HCC) 04/01/2024 12:12 PM EDT Health Maintenance Due Date Last Done Comments Depression Screening 1957 Albumin/Creatinine Ratio 02/07/1964 CKD PHOS USE SMARTSET 72182 02/07/1964 Zoster Vaccines (2 of 3) 10/29/2013 09/03/2013 COVID-19 Vaccine ( season) 2023 01/09/2022, 06/28/2021, 11/10/2020, Additional history exists Influenza Vaccine (FLU shot) (#1) 2024 09/05/2023, 09/05/2023, 06/27/2022, Additional history exists GFR 09/18/2024 03/18/2024, 02/16, 02/26/2024, Additional history exists CKD HGB USE SMARTSET 71459 04/01/202504/01, 04/01/2024, 03/18/2024, Additional history exists DTaP,Tdap,and [...] encounter Medical Devices Implanted Type Area Sales And Marketing Director Device Identifier Shelf Expiration Date Model / Serial / Lot Port Implant W/8f Poly Cath - [id number] Implanted:Qty : 1 on 09/21/2023 by Phill Patrick MD at [facility] Right: Chest CR BARD : PERIPHERAL VASCULAR [id number] 08/16/2024 [id number] / / [id number] documented as of this encounter Procedures Procedure Name Priority Date/Time Associated Diagnosis Comments DIFFERENTIAL, AUTOMATED STAT 04/01/2024 12:12 PM EDT Bladder cancer (HCC) CBC STAT 04/01/2024 12:12 PM EDT Bladder cancer (HCC) CBC STAT 04/01/2024 12:12 PM EDT Bladder cancer (HCC) documented in this encounter Results * (ABNORMAL) DIFFERENTIAL, AUTOMATED (04/01/2024 12:12 PM EDT) WBC 6.30 4.00 - 10.80 K/uL 04/01/2024 12:17 PM EDT [facility] 56- Neutrophils % 50.6 40.0 - 75.0 % 04/01/2024 12:17 PM EDT [facility] 56-02 Lymphocytes % 22.2 18.0 - 42.0 % 04/01/2024 12:17 PM EDT [facility] 56- Monocytes % 24.0(H) 1.0 - 11.0 % 04/01/2024 12:17 PM EDT [facility] 56-02 Eosinophils % 2.9 0.0 - 6.0 % 04/01/2024 12:17 PM EDT [facility] 56 Basophils % 0.3 0.0 - 2.0 % 04/01/2024 12:17 PM EDT [facility] 56-02 Absolute Neutrophils 3.19 1.80 - 7.70 K/uL 04/01/2024 12:17 PM EDT [facility] 56- Absolute Lymphocytes 1.40 1.00 - 4.80 K/ul 04/01/2024 12:17 PM EDT [facility] 56-02 Absolute Monocytes 1.51(H) 0.00 - 1.10 K/uL 04/01/2024 12:17 PM EDT [facility] 56-02 Absolute Eosinophils 0.18 0.00 - 0.70 K/uL 04/01/2024 12:17 PM EDT [facility] 56-02 Absolute Basophils 0.02 0.00 - 0.20 K/uL 04/01/2024 12:17 PM EDT [facility] 56-02 Blood Venous blood specimen / Unknown Venipuncture / Unknown 04/01/2024 12:12 PM EDT 04/01/2024 12:12 PM EDT Romel Perez MD LAB BLOOD ORDERA BLES [facility] [address] [place] [address] * (ABNORMAL) CBC (04/01/2024 12:12 PM EDT) WBC 6.30 4.00 - 10.80 K/uL 04/01/2024 12:17 [address]T [address] RBC 4.74 4.50 - 5.25 M/uL 04/01/2024 12:17 PM EDT [address] HGB 13.6(L) 14.0 - 16.8 g/dL 04/01/2024 12:17 PM EDT [address] HCT 42.3 40.0 - 48.4 % 04/01/2024 12:17 PM EDT [address] MCV 89.2 82.0 - 99.5 fL 04/01/2024 12:17 PM EDT [address] MCH 28.7 27.0 - 34.0 pg 04/01/2024 12:17 PM EDT [address] MCHC 32.2 32.0 - 36.0 g/dL 04/01/2024 12:17 PM EDT [address] RDW 16.9 11.5 - 15.5 % 04/01/2024 12:17 PM EDT [address] PLT 341 140 - 400 K/uL 04/01/2024 12:17 PM EDT [address] MPV 9.5 6.6 - 11.1 fL 04/01/2024 12:17 PM EDT [address] Blood Venous blood specimen / Unknown Venipuncture / Unknown 04/01/2024 12:12 PM EDT 04/01/2024 12:12 PM EDT Romel Perez MD LAB BLOOD ORDERA [place]ES [place] [address] [place] [address] documented in this encounter Visit Diagnoses Diagnosis Bladder cancer (HCC) Malignant neoplasm of bladder, part unspecified documented in this encounter Advance Directives Documents on File Type Date Recorded Patient Chick Sexer Expl anation POLST 12/13/2023 10:22 AM POLST [...] patient have Health Care Power of Manager Housekeeping? Yes, not currently available * Full Code [...] Power of Attor panchito? No Care Teams Manager Math Relationship Specialty Start Date End Date Elissa Carrero MD [address] [address] PCP - General Family Medicine 12/29/22 documented as of this encounter
--- OUTSIDE RECORDS SUMMARY | 2024-04-28 12:38 | External Medical Summary | Summary of Care ---
Author Name Unknown Organization [facility] Address [address] [facility] [place] [address] Phone [phone] Care Team Providers Care Rn Transplant Name Role Phone Elissa Carrero MD Primary Care Provider Reason for Visit * Reason Onset Date Comments Filling Problem 04/01/2024 Dr. Perez Encounter Details Date Type Department Care Team (Late st Contact Info) Description 04/01/2024 [facility] [address] [place] [phone] Romel Perez MD [address] [place] [address] Filling Problem (Dr. Perez) Allergies Active Allergy [...] mRNA, LNP-s, No Pre serve, 2-Dose Series ([employer]!) 01/09/2022,06/28/2021,11/10/2020,10/21 Pneumococcal Conjugate Vacc, 13 Valent (Prevnar) [...] Coello OSA - 04/01/2024 1:57 PM EDT [facility] pharmacy in [place] requesting corrected script for Pt's Megestrol Acetate medication; dosing instructions seem to be incorrect according to pharmacist. Pharmacy phone number is [phone]. documented in this encounter Plan of Treatment Upcoming Encounters Date Type Department Care Team (Late st Contact Info) Description 04/14/2024 10:10 AM EDT Laboratory Laboratory State Derrick Sanchez [address] [place] [phone] Francisco Munoz Scenery [address] [facility] [place] [address] 04/14/2024 10:30 AM EDT Office Visit Hematology/Oncology [facility] 200 [facility] [place] [phone] Romel Perez MD 200 [facility] [place] [address] 04/14/2024 11:00 AM EDT Hem/Onc Treatment Hematology/Oncology Treatment, [place] 200 [place] [phone] Tammy, Chair 9 Hem Onc [address] [place] [address] 05/14/2024 10:00 AM EDT Office Visit Palliative Medicine [facility] 200 [place] [phone] Mary Mayfield MD [address] [place] [address] Health Maintenance Due Date Last Done Comments Depression Screening 1957 Albumin/Creatinine Ratio 02/07/1964 CKD PHOS USE SMARTSET 61470 02/07/1963 Zoster Vaccines (2 of 3) 10/29/2013 09/03/2013 COVID-19 Vaccine ( season) 2023 01/09/2022, 06/28/2021, 11/10/2020, Additional history exists Influenza Vaccine (FLU shot) (#1) 2024 09/05/2023, 09/05/2023, 06/27/2022, Additional history exists GFR 10/02/2024 04/01/2024, 07/0 10/2023, 03/11/2024, Additional history exists CKD HGB USE SMARTSET 08977 04/01/202504/01, 04/01/2024, 03/18/2024, Additional history exists DTaP,Tdap,and [...] this encounter Medical Devices Implanted Type Area Director Airport Operations Device Identifier Shelf Expiration Date Model / Serial / Lot Port Implant W/8f Poly Cath - [id number] Implanted:Qty : 1 on 09/21/2023 by Phill Patrick MD at [facility] Right: Chest CR BARD : PERIPHERAL VASCULAR [id number] 08/16/2024 [id number] / / [id number] documented as of this encounter Visit Diagnoses Diagnosis Malignant neoplasm of overlapping sites of bladder (HCC) Malignant neoplasm of other specified sites of bladder documented in this encounter Advance Directives Documents on File Type Date Recorded Patient Licensed Clinical Social Worker Expl anation POLST 12/13/2023 10:22 AM [...] the patient have Health Care Power of Dock Attendant? Yes, not currently available * Full Code [...] Power of Attor panchito? No Care Teams Rn Transplant Relationship Specialty Start Date End Date Elissa Crarero MD [address] [address] PCP - General Family Medicine 12/29/22 documented as of this encounter
--- OUTSIDE RECORDS SUMMARY | 2024-04-28 12:38 | External Medical Summary | Summary of Care ---
Author Name Unknown Organization [facility] Address [address] [place] [address] Phone [phone] Care Team Providers Care Senior Microsoft Net Developer Name Role Phone Elissa Carrero MD Primary Care Provider Encounter Details Date Type Department Care Team (Late st Contact Info) Description 03/27/2024 Orders Only Hematology/Oncology, [address] [address] Romel Perez MD 200 [place] [address] Allergies Active Allergy Reactions Criticality [...] mRNA, LNP-s, No Pre serve, 2-Dose Series ([employer]) 01/09/2022,06/28/2021,11/10/2020,10/21 Pneumococcal Conjugate Vacc, 13 Valent (Prevnar) [...] EDT Laboratory Laboratory State Derrick Sanchez [address] [place] [address] Tammy, Lab Scenery [address] [place] [address] 04/01/2024 12:15 PM EDT Office Visit Hematology/Oncology [facility] [address] [place], [place] [address] Romel Perez MD [address] [place], [place] [address] 04/01/2024 1:00 PM EDT Hem[facility] 200 [facility], [place] [phone] Tammy, Chair 1 Hem Onc [facility] 200 [facility] [place], [place] [address] 04/08/2024 8:20 AM EDT Laboratory Laboratory [facility] [place] [address] [place], [place] [phone] Tammy, Lab [address] [place] [address] 04/08/2024 9:00 AM EDT Office Visit Hematology/Oncology [facility] [place] [address] [place], [place] [phone] Romel Perez MD [address] [place] [address] 04/08/2024 9:30 AM EDT Hem[facility] 200 [place] [phone] Tammy, Chair 9 Hem Onc [address]ery [address] [place] [address] 05/14/2024 10:00 AM EDT Office Visit Palliative Medicine [facility] 200 [facility], [place] [phone] Mary Mayfield MD [address] [place], [place] [address], [place] [address] Health Maintenance Due Date Last Done Comments Depression Screening 1957 Albumin/Creatinine Ratio 02/07/1964 CKD PHOS USE SMARTSET 27564 02/07/1964 Zoster Vaccines (2 of 3) 10/29/2013 09/03/2013 COVID-19 Vaccine ( season) 2023 01/09/2022, 06/28/2021, 11/10/2020, Additional history exists Influenza Vaccine (FLU shot) (#1) 2024 09/05/2023, 09/05/2023, 06/27/2022, Additional history exists GFR 09/18/2024 03/18/2024, 02/16, 02/26/2024, Additional history exists CKD HGB USE SMARTSET 53487 03/18/202503/18, 03/18/2024, 03/11/2024, Additional history exists DTaP,Tdap,and [...] this encounter Medical Devices Implanted Type Area Parts Expediter Device Identifier Shelf Expiration Date Model / Serial / Lot Port Implant W/8f Poly Cath - [id number] Implanted:Qty : 1 on 09/21/2023 by Phill Patrick MD at [facility] Right: Chest CR BARD : PERIPHERAL VASCULAR [id number] 08/16/2024 [id number] / / [id number] documented as of this encounter Advance Directives Documents on File Type Date Recorded Patient Food Packer Expl anation POLST 12/13/2023 10:22 AM POLST [...] the patient have Health Care Power of Pitting Machine Operator? Yes, not currently available * Full Code [...] of Attor panchito? No Care Teams Senior Microsoft Net Developer Relationship Specialty Start Date End Date Elissa Carrero MD [address] [address] PCP - General Family Medicine 12/29/22 documented as of this encounter
--- OUTSIDE RECORDS SUMMARY | 2024-04-28 12:38 | External Medical Summary ---
Author Name Unknown Address Unknown Organization K09:[facility] 56-02 - [address] [place] [address] Laboratory Report Ordering Provider Test Date Status PENELOPE WALLACE 04/01/2024 12:12:17 Final Observation Date Value Abnormality Reference (Units ) Status BUN 04/01/2024 12:12:17 24 Above high normal 6-20 (mg/dL) Final Creatinine 04/01/2024 12:12:17 1.2 0.6-1.2 (mg/dL) Final Glomerular filtration rate/1.73 sq M.predicted [Volume Rate/Area] in Serum, Plasma or Blood by Creatinine-based formula (CKD-EPI) 04/01/2024 12:12:17 63 >=60 (mL/min) Final eGFR is calculated based on the CKD-EPI 2020 equation Sodium 04/01/2024 12:12:17 137 135-146 (m mol/L) Final Potassium 04/01/2024 12:12:17 3.8 3.5-5.1 (m mol/L) Final Cl 04/01/2024 12:12:17 103 98-107 (mm ol/L) Final CO2 04/01/2024 12:12:17 21 Below low normal 22- 32 (mmol/L) Final Anion gap 04/01/2024 12:12:17 13 7-15 (mmol /L) Final Glucose 04/01/2024 12:12:17 126 Above high normal 70 -120 (mg/dL) Final Albumin 04/01/2024 12:12:17 3.5 Below low normal 3.8 -5.0 (g/dL) Final AST (Aspartate aminotransferase) 04/01/2024 12:12:17 20 10-50 (U/L) Fin al Alk Phos 04/01/2024 12:12:17 158 Above high normal 35 -130 (U/L) Final Bilirubin, Total 04/01/2024 12:12:17 0.3 <=1 .2 (mg/dL) Final Calcium 04/01/2024 12:12:17 8.9 8.4-10.2 ( mg/dL) Final Protein 04/01/2024 12:12:17 6.6 6.0-8.3 (g /dL) Final ALT (Alanine aminotransferase) 04/01/2024 12:12:17 15 10-50 (U/L) Frantz kirkpatrick Performing Location [facility] [address] [place] [address]
--- OUTSIDE RECORDS SUMMARY | 2024-04-28 12:38 | External Medical Summary | Summary of Care ---
Author Name Unknown Organization [facility] Address [address] [facility] [place] [address] Phone [phone] Care Team Providers Care Body Cleaner Name Role Phone Elissa Carrero MD Primary Care Provider Reason for Visit * Reason Comments Follow Up Treatment Encounter Details Date Type Department Care Team (Late st Contact Info) Description 04/01/2024 12:15 PM EDT Office Visit Hematology/Oncology [facility] [address] [facility] [place] [phone] Romel Perez MD [address] [facility] [place] [address] Malignant neoplasm of overlapping sites of bladder (HCC)* Allergies Active Allergy Reactions Criticality Noted [...] Active traMADol HCl 50 MG Oral Tablet (Ultram)Indication s:Chronic low back pain, unspecified back pain laterality, [...] for Heartburn. 90 Tablet 3 06/21/2023 Active Lidocaine-Prilocai ne 2.5-2.5 % External Cream (Emla)Indications: Cancer of left renal pelvis (HCC) APPLY TO SKIN OVER MEDIPORT & COVER 1HR PRIOR TO ACCESSING. 30 g 1 09/06/2023 Active Aspirin 81 MG Oral Capsule Take 1 Tablet by mouth every evening. Active oxyCODONE-Acetamin ophen 5-325 MG Oral Tablet (Percocet)Indicati ons:Malignant neoplasm of overlapping sites of bladder (HCC) Take 1 Tablet by mouth every 4 hours as needed for Pain, Moderate. 30 Tablet 11/26/2023 Active Prochlorperazine Maleate 10 MG Oral Tablet (Compazine)Indicat ions:Cancer of left renal pelvis (HCC) Take 1 Tablet by mouth every 6 hours as needed for Nausea. 30 Tablet 2 02/07/2024 Active Ondansetron HCl 8 MG Oral TabletIndications: Cancer of left renal pelvis (HCC) Take 1 Tablet by mouth every 8 hours as needed for Nausea. 30 Tablet 2 02/07/2024 Active dexAMETHasone 2 MG Oral Tablet (Decadron)Indicati ons:Cancer related pain Take 1 Tablet by mouth daily with breakfast. 14 Tablet 03/11/2024 Active Diclofenac Sodium 50 MG Oral Tablet Delayed Release (Voltaren) FOUR TIMES DAILY 11/19/2023 Active MultiVitamin + Fluoride 0.25 MG Oral Tablet Chewable 1 Tablet. 11/19/2023 Active Tamsulosin HCl 0.4 MG Oral Capsule (Flomax)Indication s:BPH without obstruction/lower urinary tract symptoms Take 1 [...] 03/13/2024 Active Megestrol Acetate 625 MG/5ML Oral SuspensionIndicati ons:Malignant neoplasm of overlapping sites of bladder (HCC) Take 625 mg by mouth once for 1 dose. 2000 mL 2 04/01/2024 04/01/2024 Active documented as of this encounter (statuses [...] mRNA, LNP-s, No Pre serve, 2-Dose Series ([employer]) 01/09/2022,06/28/2021,11/10/2020,10/21 Pneumococcal Conjugate Vacc, 13 Valent (Prevnar) [...] Sign Reading Time Taken Comments Blood Pressure 103/71 04/01/2024 12:25 PM EDT Pulse 78 04/01/2024 12:25 PM EDT Temperature 36.2 C (97.2 F) 04/01/2024 12:25 PM E DT Respiratory Rate 16 04/01/2024 12:25 PM EDT Oxygen Saturation 98% 04/01/2024 12:25 PM EDT Inhaled Oxygen Concentration - - Weight 58.7 kg (129 lb 6.4 oz) 04/01/2024 12:25 PM EDT Height - - Body Mass Index 22.21 03/13/2024 11:32 AM EDT documented in this [...] Progress Notes * Romel Perez MD - 04/01/2024 12:16 PM EDT Outpatient Consult Note Data Source: Patient, Epic record. Data Source: Patient, Epic record. 04/01/2024 12:16 PM Drew Rosen [id number] 79 year old Patient Encounter: HEMATOLOGY/ONCOLOGY [facility] Cancer Diagnosis: Renal pelvis High grade [...] nodes with hepatic metastasis. Markers Tumor Mutational [place] (TMB): TMB Unit [place] 6.63 m/MB Low Microsatellite Instability Status (MSI): MSI Status 0.32 Stable Result Detail Tier I: Strong Significance Variants NONE Tier II: Potential Significance Variants Single Nucleotide Variants and Insertions/Deletions Gene Variant Tier Amino Acid Change Nucleotide Change Consequence Allele Frequency Sequencing Depth KMT2D T2281Ztj*19 Tier 2: Potential significance p.[id number] NM_003482.4: c.8301delT Frameshift Variant 1975 KMT2D K287* Tier 2: Potential significance p.Udr827Nll NM_003482.4: c.858_859insT Nonsense 22.3% 1991 TP53 R337C Tier 2: Potential significance p.Jao594Eur NM_000546.6: c.1009C>T Missense Variant 22% 1999 TP53 H179R Tier 2: Potential significance p.Sqs018Eap NM_000546.6: c.536A>G Missense Variant 10.9% 1829 Interval History: He continues to complain generalized weakness and poor appetite. He continues to lose weight. So far he received total of 2 cycles of Trodelvy. LABS/IMAGING: Results for orders placed or performed in visit on 03/18/24 COMPREHENSIVE METABOLIC PANEL Result Value Ref Range BUN 25 (H) 6 - 20 mg/dL Creatinine 1.5 (H) 0.6 - 1.2 mg/dL Estimated Glomerular Filtration Rate 49 (L) >=60 mL/min Sodium 135 135 - 146 mmol/L Potassium 4.2 3.5 - 5.1 mmol/L Chloride 101 98 - 107 mmol/L CO2 22 22 - 32 mmol/L Anion Gap 12 7 - 15 mmol/L Glucose 114 70 - 120 mg/dL Albumin 3.6 (L) 3.8 - 5.0 g/dL AST 23 10 - 50 U/L Alkaline Phosphatase 163 (H) 35 - 130 U/L Bilirubin, Total 0.3 <=1.2 mg/dL Calcium 9.1 8.4 - 10.2 mg/dL Protein 6.6 6.0 - 8.3 g/dL ALT 14 10 - 50 U/L CBC Result Value Ref Range WBC 4.79 4.00 - 10.80 K/uL RBC 4.49 4.50 - 5.25 M/uL HGB 13.0 (L) 14.0 - 16.8 g/dL HCT 40.8 40.0 - 48.4 % MCV 90.9 82.0 - 99.5 fL MCH 29.0 27.0 - 34.0 pg MCHC 31.9 32.0 - 36.0 g/dL RDW 16.7 11.5 - 15.5 % PLT 371 140 - 400 K/uL MPV 10.4 6.6 - 11.1 fL DIFFERENTIAL, AUTOMATED Result Value Ref Range WBC 4.79 4.00 - 10.80 K/uL Neutrophils % 46.5 40.0 - 75.0 % Lymphocytes % 25.1 18.0 - 42.0 % Monocytes % 23.0 (H) 1.0 - 11.0 % Eosinophils % 5.0 0.0 - 6.0 % Basophils % 0.4 0.0 - 2.0 % Absolute Neutrophils 2.23 1.80 - 7.70 K/uL Absolute Lymphocytes 1.20 1.00 - 4.80 K/ul Absolute Monocytes 1.10 0.00 - 1.10 K/uL Absolute Eosinophils 0.24 0.00 - 0.70 K/uL Absolute Basophils 0.02 0.00 - 0.20 K/uL Blood counts results are stable in acceptable range. REVIEW OF SYSTEMS: General: No Fever, chills, night sweats, continue to loose weight HEENT: No change in visual acuity, blurred [...] as needed for pain 20 g 3 No current facility-administered medications for this [...] reaction(s): muscle spasms PHYSICAL EXAMINATION: General Appearance: Weak appearing patient in no acute distress, PS=3 There were no vitals taken for this [...] shows diseaseprogression. Currently he is on Trodelvy. He looks weak and tired with poor performance status. So far he completed 2 cycles of Trodelvy without any significant improvement in his symptoms and performance status. He continued to lose weight with a poor appetite. Discussed with the patient and in detail about diagnosis and prognosis. With his overall general condition, I will continue to hold his chemotherapy. I also prescribed megestrol acetate his appetite. I will see him back in 2 weeks to re-evaluate hold situation and decide about the continuationof the chemotherapy. After detailed discussion they agreed with the plan. PLAN: Continue hold chemotherapy. Return clinic for follow-up in 2 weeks. The patient voiced understanding of all [...] in this encounter Nursing Notes * Libia Alvarado, YUE ASSIST - 04/01/2024 12:26 PM EDT Patient identifed by name and birthdate [...] it for you? ALREADY ACTIVE Filed Vitals: 04/01/24 1225 BP: 103/71 Pulse: 78 Resp: 16 Temp: 36.2 C (97.2 F) TempSrc: Tympanic SpO2: 98% Weight: 58.7 kg (129 lb 6.4 oz) Patient was instructed to not get [...] Care Team (Late st Contact Info) Description 04/08/2024 8:20 AM EDT Laboratory Laboratory [facility] [address] [place] [phone] Tammy, Lab [address] [facility] [place] [address] 04/08/2024 9:00 AM EDT Office Visit Hematology/Oncology [facility] [place] [address] [facility] [place] [phone] Romel Perez MD [address] [facility] [place] [address] 04/08/2024 9:30 AM EDT Hem/Onc Treatment Hematology/Oncology Treatment, [place] [address] [facility], [place] [phone] [place], Chair 9 Hem Onc [address] [place] [address] 05/14/2024 10:00 AM EDT Office Visit Palliative Medicine [facility] [address] [phone] Mary Mayfield MD [address] [place] [address] [place] [address] Health Maintenance Due Date Last Done Comments Depression Screening 1957 Albumin/Creatinine Ratio 02/07/1964 CKD PHOS USE SMARTSET 18852 02/07/1964 Zoster Vaccines (2 of 3) 10/29/2013 09/03/2013 COVID-19 Vaccine ( season) 2023 01/09/2022, 06/28/2021, 11/10/2020, Additional history exists Influenza Vaccine (FLU shot) (#1) 2024 09/05/2023, 09/05/2023, 06/27/2022, Additional history exists GFR 10/02/2024 04/01/2024, 07/0 10/2023, 03/11/2024, Additional history exists CKD HGB USE SMARTSET 48425 04/01/202504/01, 04/01/2024, 03/18/2024, Additional history exists DTaP,Tdap,and [...] this encounter Medical Devices Implanted Type Area Rural Sociologist Device Identifier Shelf Expiration Date Model / Serial / Lot Port Implant W/8f Poly Cath - [id number] Implanted:Qty : 1 on 09/21/2023 by Phill Patrick MD at [facility] Right: Chest CR BARD : PERIPHERAL VASCULAR [id number] 08/16/2024 [id number] / / [id number] documented as of this encounter Visit Diagnoses Diagnosis Malignant neoplasm of overlapping sites of bladder (HCC)- Primary Malignant neoplasm of other specified sites of bladder documented in this encounter Advance Directives Documents on File Type Date Recorded Patient Interior Design Principal Expl anation POLST 12/13/2023 10:22 AM POLST [...] the patient have Health Care Power of Roller Skate Assembler? Yes, not currently available * Full Code [...] Power of Attor panchito? No Care Teams Body Cleaner Relationship Specialty Start Date End Date Elissa Carrero MD [address] [address] PCP - General Family Medicine 12/29/22 documented as of this encounter
--- OUTSIDE RECORDS SUMMARY | 2024-04-28 12:38 | External Medical Summary | Summary of Care ---
Author Name Unknown Organization [facility] Address [address] [facility] [place] [address] Phone [phone] Care Team Providers Care Newsroom Intern Name Role Phone Elissa Carrero MD Primary Care Provider Reason for Visit * Reason Onset Date Comments Advice 03/26/2024 Encounter Details Date Type Department Care Team (Late st Contact Info) Description 03/26/2024 Telephone Hematology/Oncology [facility] [place] [address] [facility] [place] [phone] Romel Perez MD [address] [facility] [place] [address] Advice Allergies Active Allergy Reactions Criticality Noted [...] mRNA, LNP-s, No Pre serve, 2-Dose Series ([employer]) 01/09/2022,06/28/2021,11/10/2020,10/21 Pneumococcal Conjugate Vacc, 13 Valent (Prevnar) [...] encounter Miscellaneous Notes * Telephone Encounter - Moriah Sarmiento OSA - 03/27/2024 11:33 AM EDT Added and pt is aware * Telephone Encounter - Troy Dominguez RN [...] possible. Pt states he will go to [facility] ER after he showers. Dr. Perez- [facility]. documented in this encounter Plan of Treatment Upcoming Encounters Date Type Department Care Team (Late st Contact Info) Description 04/01/2024 12:00 PM EDT Laboratory Laboratory [facility] [address] [place] [address] Tammy, Lab [address] [place] [address] 04/01/2024 12:15 PM EDT Office Visit Hematology/Oncology [facility] [place] [address] [place], [place] [address] Romel Perez MD [address] [place] [address] 04/01/2024 1:00 PM EDT [facility] [address] [facility], [place] [address] Tammy, Chair 1 Hem Onc [place] [address] [place], [place] [address] 04/08/2024 8:20 AM EDT Laboratory Laboratory [facility] [place] [address] [place], [place] [phone] Tammy, Lab [address] [place] [address] 04/08/2024 9:00 AM EDT Office Visit Hematology/Oncology [facility] [place] [address] [place], [place] [phone] Romel Perez MD [address] [place] [address] 04/08/2024 9:30 AM EDT Hem/Onc Treatment Hematology/Oncology Treatment, [place] [address] [facility] [address] Tammy, Chair 9 Hem Onc [address] [place], [place] [address] 05/14/2024 10:00 AM EDT Office Visit Palliative Medicine [facility] [place] [address] [facility], [place] [address] Mary [place]field MD [address] [place], [place] [address] [address] Health Maintenance Due Date Last Done Comments Depression Screening 1957 Albumin/Creatinine Ratio 02/07/1964 CKD PHOS USE SMARTSET 04547 02/07/1964 Zoster Vaccines (2 of 3) 10/29/2013 09/03/2013 COVID-19 Vaccine ( season) 2023 01/09/2022, 06/28/2021, 11/10/2020, Additional history exists Influenza Vaccine (FLU shot) (#1) 2024 09/05/2023, 09/05/2023, 06/27/2022, Additional history exists GFR 09/18/2024 03/18/2024, 02/16, 02/26/2024, Additional history exists CKD HGB USE SMARTSET 63985 03/18/202503/18, 03/18/2024, 03/11/2024, Additional history exists DTaP,Tdap,and [...] this encounter Medical Devices Implanted Type Area Tamper Operator Device Identifier Shelf Expiration Date Model / Serial / Lot Port Implant W/8f Poly Cath - [id number] Implanted:Qty : 1 on 09/21/2023 by Phill Patrick MD at [facility] Right: Chest CR BARD : PERIPHERAL VASCULAR [id number] 08/16/2024 [id number] / / [id number] documented as of this encounter Advance Directives Documents on File Type Date Recorded Patient Matlab Developer Expl anation POLST 12/13/2023 10:22 AM POLST (kassie ab DNR) * Full Code (Latest Code Status on File) Date Activated Date Inactivated Comments 08/29/2023 9:51 AM 08/29/2023 4:02 PM This order reflects the patients wishes and were consensually agreed upon. Question Answer Comments Discussion of Advance Directives occurred with: Patient Does the patient have a Living Will? Yes, not cu rrently available Does the patient have Health Care Power of Asset Protection Officer? Yes, not currently available * Full Code [...] Power of Attor panchito? No Care Teams Newsroom Intern Relationship Specialty Start Date End Date Elissa Carrero MD [address] [address] PCP - General Family Medicine 12/29/22 documented as of this encounter
--- OUTSIDE RECORDS SUMMARY | 2024-04-28 12:38 | External Medical Summary ---
Author Name Unknown Address Unknown Organization [facility] [place] [address] Laboratory Report Ordering Provider Test Date Status PENELOPE WALLACE 04/01/2024 12:12:17 Final Observation Date Value Abnormality Reference (Units ) Status SYNC LEUKOCYTES IN BLOOD BY AUTOMATED COUNT 04/01/2024 12:12:17 6.30 4.00-10.80 (K/uL) Final Segs 04/01/2024 12:12:17 50.6 40.0-75.0 (%) Final Lymphs % 04/01/2024 12:12:17 22.2 18.0-42.0 (%) Final Monos 04/01/2024 12:12:17 24.0 Above high normal 1.0-11.0 (%) Final Eosinophils 04/01/2024 12:12:17 2.9 0.0-6.0 (%) Final Basos 04/01/2024 12:12:17 0.3 0.0-2.0 (%) Final Absolute Segs 04/01/2024 12:12:17 3.19 1.80-7.70 (K/uL) Final Lymphs, absolute 04/01/2024 12:12:17 1.40 1.00-4.80 (K/ul) Final Monos, Abs 04/01/2024 12:12:17 1.51 Above high normal 0.00-1.10 (K/uL) Final Eos, Abs 04/01/2024 12:12:17 0.18 0.00-0.70 (K/uL) Final Basos, Abs 04/01/2024 12:12:17 0.02 0.00-0.20 (K/uL) Final Performing Location [facility] [place] [address]
--- OUTSIDE RECORDS SUMMARY | 2024-04-28 12:39 | External Medical Summary | Summary of Care ---
Author Name Unknown Organization [facility] Address [address] [place] [address] Phone [phone] Care Team Providers Care Biological Lab Technician Name Role Phone Elissa Carrero MD Primary Care Provider Reason for Visit * Reason Comments Procedure Hydration Encounter Details Date Type Department Care Team (Latest Contact Info) Description 02/19/2024 12:30 PM EDT Hem/Onc Treatment Hematology/Oncology Treatment, [place] [address] [place] [address] Malignant neoplasm of overlapping sites of bladder (HCC)*; Dehydration Allergies Active Allergy Reactions Criticality Noted Date Comments Lisinopril 07/04/2019 Other reaction(s): Angioedema Piroxicam 10/25/2022 Other reaction(s): muscle spasms documented as of this encounter (statuses as of 03/26/2024) Medications Medication Sig Dispensed Refills Start Date End Date Status MULTIVITAMINS PO TABS Take by mouth once. Takes at night Active Diclofenac Sodium 1 % gel Place topically on the skin. 08/28/2018 Active traMADol HCl 50 MG Oral Tablet (Ultram)Indicati ons:Chronic low back pain, unspecified back pain laterality, [...] for Heartburn. 90 Tablet 3 06/21/2023 Active Lidocaine-Priloc krystle 2.5-2.5 % External Cream (Emla)Indication s:Cancer of left renal pelvis (HCC) APPLY TO SKIN OVER MEDIPORT & COVER 1HR PRIOR TO ACCESSING. 30 g 1 09/06/2023 Active Aspirin 81 MG Oral Capsule Take 1 Tablet by mouth every evening. Active oxyCODONE-Acetam inophen 5-325 MG Oral Tablet (Percocet)Indica tions:Malignant neoplasm of overlapping sites of bladder (HCC) Take 1 Tablet by mouth every 4 hours as needed for Pain, Moderate. 30 Tablet 11/26/2023 Active Prochlorperazine Maleate 10 MG Oral Tablet (Compazine)Indic ations:Cancer of left renal pelvis (HCC) Take 1 Tablet by mouth every 6 hours as needed for Nausea. 30 Tablet 2 02/07/2024 Active Ondansetron HCl 8 MG Oral TabletIndication s:Cancer of left renal pelvis (HCC) Take 1 Tablet by mouth every 8 hours as needed for Nausea. 30 Tablet 2 02/07/2024 Active omeprazole (PRILOSEC) 20 MG CPDR Take by mouth. 09/15/2019 03/13/20 24 Discontinued Atorvastatin Calcium 20 MG Oral Tablet (Lipitor) TAKE 1 TABLET AT BEDTIME 90 Tablet 3 05/14/2023 03/13/20 24 Discontinued Doxycycline Hyclate 100 MG Oral Tablet Take 1 Tablet by mouth in the morning and 1 Tablet before bedtime. Patient takes this "as needed" for lyme flare ups- starting it 09/06/23. 03/13/20 24 Discontinued Modafinil 100 MG Oral Tablet (Provigil) Take 1 Tablet by mouth daily as needed (fatigue). 90 Tablet 1 10/10/2023 03/13/20 24 Discontinued(Ref ill) dexAMETHasone 2 MG Oral Tablet (Decadron)Indica tions:Cancer related pain Take 1 Tablet by mouth daily with breakfast. 14 Tablet 01/23/2024 03/11/20 24 Discontinued(Ref ill) Tamsulosin HCl 0.4 MG Oral Capsule (Flomax)Indicati ons:BPH without obstruction/lowe r urinary tract symptoms Take 1 Capsule by mouth in the morning. 30 Capsule 11 02/04/2024 03/13/20 24 Discontinued(Ref ill) documented as of this encounter (statuses as of 03/26/2024) Active Problems Problem Noted Date Diagnosed Date [...] as of this encounter (statuses as of 03/26/2024) Resolved Problems Problem Noted Date Diagnosed Date Resolved Date Stage 3a chronic kidney disease 10/27/2022 01/24/2023 Overview: Per CKD protocol documented as of this encounter (statuses as of 03/26/2024) Immunizations Name Administration Dates Next Due COVID-19 mRNA, LNP-s, No Pre serve, 2-Dose Series (Aginova) 01/09/2022,06/28/2021,11/10/2020,10/21 Pneumococcal Conjugate Vacc, 13 Valent (Prevnar) [...] Sign Reading Time Taken Comments Blood Pressure 98/64 02/19/2024 1:16 PM EDT Pulse 64 02/19/2024 1:16 PM EDT Temperature 36.6 C (97.9 F) 02/19/2024 1:16 PM ED T Respiratory Rate 16 02/19/2024 1:16 PM EDT Oxygen Saturation 93% 02/19/2024 1:16 PM EDT Inhaled Oxygen Concentration - - Weight - [...] of this encounter Nursing Notes * Katia Short RN - 02/19/2024 4:12 PM EDT Safety and Risk for Injury Patient will remain free from injury. Ensure appropriate safety devices are available. Provide and maintain safe environment. Goals: Patient will remain free from injury. Possible barriers to meeting goals: ambulating with IV pole, age, use of cane/wheelchair Stability of the patient: Moderately stable - low risk of patient condition declining or worsening Summary regarding today's goals: Met: patient remained free of harm today * Troy Dominguez, MARCIE - 02/19/2024 1:36 PM EDT Chair 5. Pt made aware that we are holding treatment one week today per Dr. Perez d/t worsening kidney function and ANC of 0.77. Pt with c/o dizziness with standing. Vitals entered and pt hypotensive with dryskin. Verbalizes that he is drinking fluids and protein shakes. Pt labs reviewed with him per his request. Per Dr. Perez pt to receive 1L NSS over 2 hours today. VAD accessed without issues, positive blood return noted. Fluids infusing per orders. documented in this encounter Plan of Treatment Upcoming Encounters Date Type Department Care Team (Late st Contact Info) Description 04/01/2024 12:00 PM EDT Laboratory Laboratory [facility] Derrick Munoz [address] [place] [phone] [place], Lab [facility] [address] [place] [address] 04/01/2024 1:00 PM EDT [facility], [place] [phone] Tammy, Chair 1 Hem Onc [address] [place] [address] 04/08/2024 8:20 AM EDT Laboratory Laboratory [facility] [address] [place], [place] [phone] Tammy, Lab [address] [place], [place] [address] 04/08/2024 9:00 AM EDT Office Visit Hematology/Oncology [address] [place], [place] [phone] [facility] [address] 04/08/2024 9:30 AM EDT Hem/Onc Treatment Hematology/Oncology [facility] [address] [facility], [place] [phone] Tammy, Chair 9 Hem Onc [address] [place], [place] [address] 05/14/2024 10:00 AM EDT Office Visit Palliative Medicine [address], [place] [phone] Mary Mayfield MD [address] [place], [place] [address] [address] Health Maintenance Due Date Last Done Comments Depression Screening 1957 Albumin/Creatinine Ratio 02/07/1964 CKD PHOS USE SMARTSET 35409 02/07/1964 Zoster Vaccines (2 of 3) 10/29/2013 09/03/2013 COVID-19 Vaccine ( season) 2023 01/09/2022, 06/28/2021, 11/10/2020, Additional history exists Influenza Vaccine (FLU shot) (#1) 2024 09/05/2023, 09/05/2023, 06/27/2022, Additional history exists GFR 09/18/2024 03/18/2024, 02/16, 02/26/2024, Additional history exists CKD HGB USE SMARTSET 74096 03/18/202503/18, 03/18/2024, 03/11/2024, Additional history exists DTaP,Tdap,and [...] this encounter Medical Devices Implanted Type Area Morning [employer] Anchor Device Identifier Shelf Expiration Date Model / Serial / Lot Port Implant W/8f Poly Cath - [id number] Implanted:Qty : 1 on 09/21/2023 by Phill Patrick MD at OR [facility] Right: Chest CR BARD : PERIPHERAL VASCULAR [id number] 08/16/2024 [id number] / / [id number] documented as of this encounter Visit Diagnoses Diagnosis Malignant neoplasm of overlapping sites of bladder (HCC)- Primary Malignant neoplasm of other specified sites of bladder Dehydration documented in this encounter Administered Medications Inactive Administered Medications - up to 3 most recent administrations Medication Order MAR Action Action Date Dose Rate Site hEParin 100 UNIT/ML Lock Flush inj 500 Units 500 Units (5 mL), IV Lock, PRN Other, IV Flush, Starting on Sun02/19/24 at 1232, Until Sun02/19/24 at 2015, For 24 hours, Do not flush if lock, PICC, or central line not in place; IV infusing or unable to flush. Given 02/19/2024 2:39 PM EDT 500 Units NSS infusion FOR HYDRATION Intravenous, at 500 mL/hr Administer over 2 Hours, ONCE, 1 dose, On Sun02/19/24 at 1345 Start Infusion 02/19/2024 12:36 PM EDT 1,000 mL 500 mL/hr sodium chloride 0.9 % flush central line 10 mL 10 mL, IV Push, PRN Other, IV Flush, Starting on Sun02/19/24 at 1232, Until Sun02/19/24 at 2015, For 24 hours, Do not flush if lock, PICC, or central line not in place; IV infusing or unable to flush. Given 02/19/2024 2:39 PM EDT 10 mL documented in this encounter Advance Directives Documents on File Type Date Recorded Patient Carder Blankets Expl anation POLST 12/13/2023 10:22 AM POLST [...] the patient have Health Care Power of Stained Glass Artist? Yes, not currently available * Full Code [...] Power of Attor panchito? No Care Teams Biological Lab Technician Relationship Specialty Start Date End Date Elissa Carrero MD 70[address] [facility] [address] [place] [address] PCP - General Family Medicine 12/29/22 documented as of this encounter
--- OUTSIDE RECORDS SUMMARY | 2024-04-28 12:39 | External Medical Summary | Summary of Care ---
Author Name Unknown Organization [facility] Address [address] [place] [address] Phone [phone] Care Team Providers Care Insulation Board Coater Operator Name Role Phone Elissa Carrero MD Primary Care Provider Reason for Visit * Reason Comments Chemotherapy Trodelvy. * Episode Based Medications (Routine) - Authorized Specialty Diagnoses / Procedures Referred By Carolina t Referred To Contact Diagnoses Cancer of left renal pelvis (HCC) Encounter for antineoplastic chemotherapy Malignant neoplasm of overlapping sites of bladder (HCC) Procedures HI FOSAPREPITANT INJECTION HI SACITUZUMAB GOVITECAN-HZIY Romel Perez MD [address] [place] [address] [place] [address] Anc Hem/Onc [address] [address] Referral ID Status Reason Start Date Expiration Date V isits Requested Visits Authorized [id number] Authorized 02/04/2024 09/16/2099 [id number] Encounter Details Date Type Department Care Team (Latest Contact Info) Description 02/26/2024 1:30 PM EDT Hem/Onc Treatment Hematology/Oncolog y Treatment, [address] [phone] Tammy, Chair 7 Hem Onc [address] [place] [address] Cancer of left renal pelvis (HCC)*; Encounter [...] Nursing Notes * Apoorva Barba RN - 02/26/2024 4:21 PM EDT Goals: Patient will remain free from injury. Possible barriers to meeting goals: Fall risk d/t ambulation with IV pole. Stability of the patient: Moderately unstable - medium risk of patient condition declining or worsening Summary regarding today's goals: Met: Patient remained free of injury. Patient tolerated infusion well. Discharged in stable condition. * Apoorva Barba RN - 02/26/2024 1:50 PM EDT Chair 7. Patient arrived for [facility]. Patient was seen by Dr. Perez (see office notes), per Dr. Perez ok for treatment today. VAD accessed. Chemotherapy/Immunotherapy agents: Trodelvy Consent for chemotherapy drug treatment complete, dated, and signed? yes, date - 02/04/24 Treatment lab parameters met? Yes Has treatment weight changed > than 10%? No Treatment preauthorized? Yes VITALS Filed Vitals: Urine protein: N/A Patient education completed for treatment? Yes Blood transfusion consent signed and complete? NA Return appointment scheduled? Yes Patient had provider visit today? Yes - Ok to release order and treat per provider Functional Status: Functional status at today's visit: [...] symptoms or adverse side effects during treatment. Safety and Risk for Injury Patient will remain free from injury. Ensure appropriate safety devices are available. Provide and maintain safe environment. documented in this encounter Plan of Treatment Upcoming Encounters Date Type Department Care Team (Late st Contact Info) Description 04/01/2024 12:00 PM EDT Laboratory Laboratory [facility] Tammy [place] [address] [place] [phone] Tammy, Lab [facility] [address] [place] [address] 04/01/2024 1:00 PM EDT Hem/Onc Treatment Hematology/Oncology Treatment, [place] [address] [place] [phone] Tammy, Chair 1 Hem Onc [facility] [address] [place] [address] 04/08/2024 8:20 AM EDT Laboratory Laboratory [facility] Tammy [place] [address] [place] [phone] Tammy, Lab [place] [address] [place] [address] 04/08/2024 9:00 AM EDT Office Visit Hematology/Oncology [facility] Tammy [place] [address] [place] [phone] Romel Perez MD [address] [place] [address] 04/08/2024 9:30 AM EDT Hem/Onc Treatment Hematology/[address], [address] [phone] Tammy, Chair 9 Hem Onc [address] [address] 05/14/2024 10:00 AM EDT Office Visit Palliative Medicine [facility] [address] [address] Mary Mayfield MD [address] [place] [address] [place] [address] Health Maintenance Due Date Last Done Comments Depression Screening 1957 Albumin/Creatinine Ratio 02/07/1964 CKD PHOS USE SMARTSET 10719 02/07/1963 Zoster Vaccines (2 of 3) 10/29/2013 09/03/2013 COVID-19 Vaccine (2022- season) 2023 01/09/2022, 06/28/2021, 11/10/2020, Additional history exists Influenza Vaccine (FLU shot) (#1) 2024 09/05/2023, 09/05/2023, 06/27/2022, Additional history exists GFR 09/18/2024 03/18/2024, 02/16, 02/26/2024, Additional history exists CKD HGB USE SMARTSET 24086 03/18/202503/18, 03/18/2024, 03/11/2024, Additional history exists DTaP,Tdap,and [...] this encounter Medical Devices Implanted Type Area Flexographic Press Operator Device Identifier Shelf Expiration Date Model / Serial / Lot Port Implant W/8f Poly Cath - [id number] Implanted:Qty : 1 on 09/21/2023 by Phill Patrick MD at OR [facility] Right: Chest CR BARD : PERIPHERAL VASCULAR [id number] 08/16/2024 [id number] / / [id number] documented as of this encounter Visit Diagnoses [...] 650 mg 650 mg, Oral, ONCE, On Sun02/26/24 at 1430, For 1 dose, Maximum of 4 grams (4000 mg) per day. Given 02/26/2024 1:41 PM EDT 650 mg Atropine sulfate inj 0.4 mg 0.4 mg, IV Push, ONCE PRN Other, acute diarrhea with a previous dose of sacituzumab, Starting on Sun02/26/24 at 1318, Until Sun02/26/24 at 2021 Given 02/26/2024 2:27 PM EDT 0.4 mg diphenhydrAMINE (Benadryl) cap 50 mg 50 mg, Oral, ONCE, On Sun02/26/24 at 1430, For 1 dose Given 02/26/2024 1:41 PM EDT 50 mg Famotidine (Pepcid) tab 20 mg 20 mg, Oral, ONCE, On Sun02/26/24 at 1430, For 1 dose Given 02/26/2024 1:41 PM EDT 20 mg Fosaprepitant Dimeglumine (Emend) 150 mg, ondansetron (Zofran) 16 mg, dexamethasone sodium phosphate 12 mg in NSS 250 mL Infusion 150 mg, IV Piggyback, ONCE, 1 dose, On Sun02/26/24 at 1430, Administer over 30 Minutes, Give 30 minutes prior to chemotherapy. Infuse over 30 minutes. Start Infusion 02/26/2024 1:40 PM EDT 150 mg 538.4 mL/hr NSS infusion Intravenous, at 50 mL/hr, PRN, Starting on Sun02/26/24 at 1430, Until Sun02/26/24 at 2021, Maintenance line Start Infusion 02/26/2024 1:35 PM EDT 50 mL/hr Sacituzumab Govitecan-hziy (Trodelvy) 645 mg in NSS 250 mL infusion 645 mg (10 mg/kg 64.5 kg Treatment plan Recorded weight), IV Piggyback, ONCE, On Sun02/26/24 at 1500, For 1 dose, Final concentration 1.1 to 3.4 mg/mL. Total volume should not exceed 500 mL. Infuse inital dose over 3 hours. May administer subsequent infusions over 1 to 2 hours if previous infusions were tolerated. Caution Chemotherapy! Handle with gloves! Protect from light! Start Infusion 02/26/2024 2:29 PM EDT 645 mg 255 mL/hr documented in this encounter Advance Directives Documents on File Type Date Recorded Patient Manager Strategic Development Expl anation POLST 12/13/2023 10:22 AM POLST [...] the patient have Health Care Power of Gun Club Manager? Yes, not currently available * Full Code [...] Power of Attor panchito? No Care Teams Insulation Board Coater Operator Relationship Specialty Start Date End Date Elissa Carrero MD [address] [address] PCP - General Family Medicine 12/29/22 documented as of this encounter
--- OUTSIDE RECORDS SUMMARY | 2024-04-28 12:39 | External Medical Summary | Summary of Care ---
Author Name Unknown Organization [facility] Address [address] [facility] [place] [address] Care Team Providers Care Rackman Name Role Phone Elissa Carrero MD Primary Care Provider Reason for Visit * Reason Onset Date Comments Emergency Department Follow-Up 03/27/2024 Encounter Details Date Type Department Care Team (Late st Contact Info) Description 03/27/2024 Telephone Family Medicine, [facility] 70[address] [facility] [address] [place] [phone] Elissa Carrero MD 7095 [facility] [place] [address] [place] [address] Emergency Department Follow-Up Allergies Active Allergy Reactions Criticality Noted Date [...] mRNA, LNP-s, No Pre serve, 2-Dose Series ([employer] 01/09/2022,06/28/2021,11/10/2020,10/21 Pneumococcal Conjugate Vacc, 13 Valent (Prevnar) [...] encounter Miscellaneous Notes * Telephone Encounter - Joy Alvarado OSA - 03/27/2024 8:31 AM EDT Called and spoke to Socorro on Drew's ER visit yesterday, she said that he is still currently sleeping but she will let him know to call the office if he wants an appointment. documented in this encounter Plan of Treatment Upcoming Encounters Date Type Department Care Team (Late st Contact Info) Description 04/01/2024 12:00 PM EDT Laboratory Laboratory [facility] [place] [address] [place] [phone] Tammy Lab [address] [place], [place] [address] 04/01/2024 1:00 PM EDT Hem/Onc Treatment [facility]ematology[facility], [place] [facility] [phone] Tammy, Chair 1 Hem Onc [address] [place] [address] 04/08/2024 8:20 AM EDT Laboratory Laboratory [facility] Tammy [place] [address] [place] [address] Tammy Lab [place] [address] [place], [place] [address] 04/08/2024 9:00 AM EDT Office Visit Hematology/Oncology [facility] Tammy [place] [address] [place] [address] Romel Perez MD [address] [place], [place] [address] 04/08/2024 9:30 AM EDT Hem/Onc Treatment [facility]ematology[facility]cology [facility], [place] [address] [facility] [address] Tammy, Chair 9 Hem Onc [address] [place] [address] 05/14/2024 10:00 AM EDT Office Visit Palliative Medicine [facility] 200 [place] [address] Mary Mayfield MD [address] [place], [place] [address] [address] Health Maintenance Due Date Last Done Comments Depression Screening 1957 Albumin/Creatinine Ratio 02/07/1963 CKD PHOS USE SMARTSET 91157 02/07/1963 Zoster Vaccines (2 of 3) 10/29/2013 09/03/2013 COVID-19 Vaccine (2022- season) 2023 01/09/2022, 06/28/2021, 11/10/2020, Additional history exists Influenza Vaccine (FLU shot) (#1) 2024 09/05/2023, 09/05/2023, 06/27/2022, Additional history exists GFR 09/18/2024 03/18/2024, 02/16, 02/26/2024, Additional history exists CKD HGB USE SMARTSET 54164 03/18/202503/18, 03/18/2024, 03/11/2024, Additional history exists DTaP,Tdap,and [...] encounter Medical Devices Implanted Type Area Supervisor Shop Device Identifier Shelf Expiration Date Model / Serial / Lot Port Implant W/8f Poly Cath - [id number] Implanted:Qty : 1 on 09/21/2023 by Phill Patrick MD at OR [facility] Right: Chest CR BARD : PERIPHERAL VASCULAR [id number] 08/16/2024 [id number] / / [id number] documented as of this encounter Advance Directives Documents on File Type Date Recorded Patient Apartment Community Assistant Manager Expl anation POLST 12/13/2023 10:22 AM [...] the patient have Health Care Power of Cutter Grind Tool Technician? Yes, not currently available * Full [...] Power of Attor panchito? No Care Teams Rackman Relationship Specialty Start Date End Date Elissa Carrero MD [address] [address] PCP - General Family Medicine 12/29/22 documented as of this encounter
--- OUTSIDE RECORDS SUMMARY | 2024-04-28 12:39 | External Medical Summary | Summary of Care ---
Author Name Unknown Organization [facility] Address [address] [facility] [place] [address] Phone [phone] Care Team Providers Care Loom Changeover Operator Name Role Phone Elissa Carrero MD Primary Care Provider Reason for Visit * Reason Onset Date Comments Advice 03/26/2024 Encounter Details Date Type Department Care Team (Late st Contact Info) Description 03/26/2024 Telephone Hematology/Oncology [facility] Tammy [place] 200 [facility] [place] [phone] Romel Perez MD 200 [facility] [place] [address] Advice Allergies Active Allergy Reactions Criticality Noted [...] mRNA, LNP-s, No Pre serve, 2-Dose Series ([employer]) 01/09/2022,06/28/2021,11/10/2020,10/21 Pneumococcal Conjugate Vacc, 13 Valent [...] possible. Pt states he will go to [facility] ER after he showers. Dr. Nico st[place]. documented in this encounter Plan of Treatment Upcoming Encounters Date Type Department Care Team (Late st Contact Info) Description 04/01/2024 12:00 PM EDT Laboratory Laboratory [facility] [address] [place] [phone] Tammy Lab [place] [address] [address] [facility] [place] [address] 04/01/2024 1:00 PM EDT Hem/Onc Treatment Hematology/Oncology Treatment, [place] [address] [facility] [address] [place] [phone] Tammy, Chair 1 Hem Onc [facility] 200 [facility] [place] [address] 04/08/2024 8:20 AM EDT Laboratory Laboratory [facility] Tammy [place] [address] [place] [address] Tammy Lab [facility] [address] [facility] [place] [address] 04/08/2024 9:00 AM EDT Office Visit Hematology/Oncology [facility] [address] [place] [phone] Romel Perez MD [address] [place] [address] 04/08/2024 9:30 AM EDT Hem/Onc Treatment Hematology/Oncology Treatment, [address] [place] [address] Tammy, Chair 9 Hem Onc [address] [place] [address] 05/14/2024 10:00 AM EDT Office Visit Palliative Medicine [address] [place] [phone] Mary Mayfield MD [address] [place] [address] Health Maintenance Due Date Last Done Comments Depression Screening 1957 Albumin/Creatinine Ratio 02/07/1963 CKD PHOS USE SMARTSET 40935 02/07/1963 Zoster Vaccines (2 of 3) 10/29/2013 09/03/2013 COVID-19 Vaccine (2022- season) 2023 01/09/2022, 06/28/2021, 11/10/2020, Additional history exists Influenza Vaccine (FLU shot) (#1) 2024 09/05/2023, 09/05/2023, 06/27/2022, Additional history exists GFR 09/18/2024 03/18/2024, 02/16, 02/26/2024, Additional history exists CKD HGB USE SMARTSET 60902 03/18/202503/18, 03/18/2024, 03/11/2024, Additional history exists DTaP,Tdap,and [...] this encounter Medical Devices Implanted Type Area Lineman Device Identifier Shelf Expiration Date Model / Serial / Lot Port Implant W/8f Poly Cath - [id number] Implanted:Qty : 1 on 09/21/2023 by Phill Patrick MD at [facility] Right: Chest CR BARD : PERIPHERAL VASCULAR [id number] 08/16/2024 [id number] / / [id number] documented as of this encounter Advance Directives Documents on File Type Date Recorded Patient Engineering Technical Analyst Expl anation POLST 12/13/2023 10:22 AM POLST [...] the patient have Health Care Power of Ops Manager? Yes, not currently available * Full [...] Power of Attor panchito? No Care Teams Loom Changeover Operator Relationship Specialty Start Date End Date Elissa Carrero MD [address] [address] PCP - General Family Medicine 12/29/22 documented as of this encounter
--- OUTSIDE RECORDS SUMMARY | 2024-04-28 12:39 | External Medical Summary | Summary of Care ---
Author Name Unknown Organization [facility] Address [address] [place] [address] Phone [phone] Care Team Providers Care Resident Care Provider Name Role Phone Elissa Carrero MD Primary Care Provider Reason for Visit * Reason Comments Chemotherapy Trodelvy. * Episode Based Medications (Routine) - Authorized Specialty Diagnoses / Procedures Referred By Carolina t Referred To Contact Diagnoses Cancer of left renal pelvis (HCC) Encounter for antineoplastic chemotherapy Malignant neoplasm of overlapping sites of bladder (HCC) Procedures [place] FOSAPREPITANT INJECTION [place] SACITUZUMAB GOVITECAN-HZIY Romel Perez MD [address] [place] [address] [place] [address] Anc Hem/Onc [address] [address] Referral ID Status Reason Start Date Expiration Date V isits Requested Visits Authorized [id number] Authorized 02/04/2024 09/16/2099 999 999 Encounter Details Date Type Department Care Team (Latest Contact Info) Description 02/26/2024 1:30 PM EDT Hem/Onc Treatment Hematology/Oncolog y Treatment, [address] [address] Tammy, Chair 7 Hem Onc [address] [place] [address] Cancer of left renal pelvis (HCC)*; Encounter [...] PM EDT Chair 7. Patient arrived for [facility]. Patient was seen by Dr. Perez (see [...] Description 04/01/2024 12:00 PM EDT Laboratory Laboratory [facility] Tammy [place] [address] [place] [phone] Tammy, Lab [facility] [address] [place] [address] 04/01/2024 1:00 PM EDT Hem/Onc Treatment Hematology/Oncology Treatment, [place] [address] [place] [phone] Tammy, Chair 1 Hem Onc [facility] [address] [place] [address] 04/08/2024 8:20 AM EDT Laboratory Laboratory [facility] Tammy [place] [address] [place] [address] Tammy, Lab Scene [address] [place] [address] 04/08/2024 9:00 AM EDT Office Visit Hematology/Oncology [facility] Tammy [place] [address] [place] [address] Romel Perez MD [address] [place] [address] 04/08/2024 9:30 AM EDT Hem/Onc Treatment Hematology/Oncology Treatment, [address] [phone] Tammy, Chair 9 Hem Onc [address] [address] 05/14/2024 10:00 AM EDT Office Visit Palliative Medicine [facility] [address] [address] Mary Mayfield MD [address] [place] [address] [place] [address] Health Maintenance Due Date Last Done Comments Depression Screening 1957 Albumin/Creatinine Ratio 02/07/1964 CKD PHOS USE SMARTSET 90128 02/07/1964 Zoster Vaccines (2 of 3) 10/29/2013 09/03/2013 COVID-19 Vaccine (2022- season) 2023 01/09/2022, 06/28/2021, 11/10/2020, Additional history exists Influenza Vaccine (FLU shot) (#1) 2024 09/05/2023, 09/05/2023, 06/27/2022, Additional history exists GFR 09/18/2024 03/18/2024, 02/16, 02/26/2024, Additional history exists CKD HGB USE SMARTSET 58898 03/18/202503/18, 03/18/2024, 03/11/2024, Additional history exists DTaP,Tdap,and [...] this encounter Medical Devices Implanted Type Area Streets And Buildings Decorator Device Identifier Shelf Expiration Date Model / Serial / Lot Port Implant W/8f Poly Cath - [id number] Implanted:Qty : 1 on 09/21/2023 by Phill Patrick MD at OR [facility] Right: Chest CR BARD : PERIPHERAL VASCULAR [id number] 08/16/2024 [id number] / / [id number] documented as of this encounter Visit Diagnoses [...] Documents on File Type Date Recorded Patient Mail Teller Expl anation POLST 12/13/2023 10:22 AM POLST [...] the patient have Health Care Power of Production Support Specialist? Yes, not currently available * Full Code [...] Power of Attor panchito? No Care Teams Resident Care Provider Relationship Specialty Start Date End Date Elissa Carrero MD [address] [address] PCP - General Family Medicine 12/29/22 documented as of this encounter
--- OUTSIDE RECORDS SUMMARY | 2024-04-28 12:39 | External Medical Summary | Summary of Care ---
Author Name Unknown Organization [facility] Address [address] [place] [address] Phone [phone] Care Team Providers Care Hood Fitter Name Role Phone Elissa Carrero MD Primary Care Provider Reason for Visit * Reason Comments Chemotherapy Trodelvy. * Episode Based Medications (Routine) - Authorized Specialty Diagnoses / Procedures Referred By Carolina t Referred To Contact Diagnoses Cancer of left renal pelvis (HCC) Encounter for antineoplastic chemotherapy Malignant neoplasm of overlapping sites of bladder (HCC) Procedures [place] FOSAPREPITANT INJECTION [place] SACITUZUMAB GOVITECAN-HZIY Romel Perez MD [address] [place] [address] [place] [address] Anc Hem/Onc [address] [address] Referral ID Status Reason Start Date Expiration Date V isits Requested Visits Authorized [id number] Authorized 02/04/2024 09/16/2099 999 999 Encounter Details Date Type Department Care Team (Latest Contact Info) Description 02/26/2024 1:30 PM EDT Hem/Onc Treatment Hematology/Oncolog y Treatment, [address] [address] Tammy, Chair 7 Hem Onc [address] [place] [address] Cancer of left renal pelvis (HCC)*; Encounter [...] PM EDT Chair 7. Patient arrived for [facility]. Patient was seen by Dr. Perez (see [...] Description 04/01/2024 12:00 PM EDT Laboratory Laboratory [facility] Tammy [place] [address] [place] [phone] Tammy, Lab [facility] [address] [place] [address] 04/01/2024 1:00 PM EDT Hem/Onc Treatment Hematology/Oncology Treatment, [place] [address] [place] [phone] Tammy, Chair 1 Hem Onc [facility] [address] [address] 04/08/2024 8:20 AM EDT Laboratory Laboratory [facility] Tammy [place] [address] [place] [address] Tammy, Lab Scene [address] [place] [place] [address] 04/08/2024 9:00 AM EDT Office Visit Hematology/Oncology [facility] Tammy [place] [address] [place] [phone] Romel Perez MD [address] [place] [address] 04/08/2024 9:30 AM EDT Hem/Onc Treatment Hematology/Oncology Treatment, [address] [phone] Tammy, Chair 9 Hem Onc [address] [address] 05/14/2024 10:00 AM EDT Office Visit Palliative Medicine [facility] [address] [address] Mary Mayfield MD [address] [place] [address] [place] [address] Health Maintenance Due Date Last Done Comments Depression Screening 1957 Albumin/Creatinine Ratio 02/07/1964 CKD PHOS USE SMARTSET 68878 02/07/1964 Zoster Vaccines (2 of 3) 10/29/2013 09/03/2013 COVID-19 Vaccine (2022- season) 2023 01/09/2022, 06/28/2021, 11/10/2020, Additional history exists Influenza Vaccine (FLU shot) (#1) 2024 09/05/2023, 09/05/2023, 06/27/2022, Additional history exists GFR 09/18/2024 03/18/2024, 02/16, 02/26/2024, Additional history exists CKD HGB USE SMARTSET 64921 03/18/202503/18, 03/18/2024, 03/11/2024, Additional history exists DTaP,Tdap,and [...] this encounter Medical Devices Implanted Type Area Mechanical Test Engineer Device Identifier Shelf Expiration Date Model / Serial / Lot Port Implant W/8f Poly Cath - [id number] Implanted:Qty : 1 on 09/21/2023 by Phill Patrick MD at OR [facility] Right: Chest CR BARD : PERIPHERAL VASCULAR [id number] 08/16/2024 [id number] / / [id number] documented as of this encounter Visit Diagnoses [...] Documents on File Type Date Recorded Patient Director Account Management Expl anation POLST 12/13/2023 10:22 AM POLST [...] the patient have Health Care Power of Instructor Ground Services? Yes, not currently available * Full Code [...] Power of Attor panchito? No Care Teams Hood Fitter Relationship Specialty Start Date End Date Elissa Carrero MD [address] [address] PCP - General Family Medicine 12/29/22 documented as of this encounter
--- OUTSIDE RECORDS SUMMARY | 2024-04-28 12:39 | External Medical Summary | Summary of Care ---
Author Name Unknown Organization [facility] Address [address] [place] [address] Phone [phone] Care Team Providers Care Sr. Manager Name Role Phone Elissa Carrero MD Primary Care Provider Reason for Visit * Reason Comments Chemotherapy Trodelvy. * Episode Based Medications (Routine) - Authorized Specialty Diagnoses / Procedures Referred By Carolina t Referred To Contact Diagnoses Cancer of left renal pelvis (HCC) Encounter for antineoplastic chemotherapy Malignant neoplasm of overlapping sites of bladder (HCC) Procedures [place] FOSAPREPITANT INJECTION [place] SACITUZUMAB GOVITECAN-HZIY Romel Perez MD [address] [place] [address] [place] [address] Anc Hem/Onc [address] [address] Referral ID Status Reason Start Date Expiration Date V isits Requested Visits Authorized [id number] Authorized 02/04/2024 09/16/2099 999 999 Encounter Details Date Type Department Care Team (Latest Contact Info) Description 02/26/2024 1:30 PM EDT Hem/Onc Treatment Hematology/Oncolog y Treatment, [address] [address] Tammy, Chair 7 Hem Onc [address] [place] [address] Cancer of left renal pelvis (HCC)*; Encounter [...] PM EDT Chair 7. Patient arrived for [facility]. Patient was seen by Dr. Perez (see [...] Description 04/01/2024 12:00 PM EDT Laboratory Laboratory [facility] Tammy [place] [address] [place] [phone] Tammy, Lab [facility] [address] [place] [address] [address] 04/01/2024 1:00 PM EDT Hem/Onc Treatment Hematology/Oncology Treatment, [place] [address] [place] [phone] Tammy, Chair 1 Hem Onc [facility] [address] [place] [address] 04/08/2024 8:20 AM EDT Laboratory Laboratory [facility] Tammy [place] [address] [place] [address] Tammy, Lab Scene [address] [place] [address] [place] [address] 04/08/2024 9:00 AM EDT Office Visit Hematology/Oncology [facility] Tammy [place] [address] [place] [address] Romel Perez MD [address] [place] [address] 04/08/2024 9:30 AM EDT Hem/Onc Treatment Hematology/Oncology Treatment, [address] [phone] Tammy, Chair 9 Hem Onc [address] [address] 05/14/2024 10:00 AM EDT Office Visit Palliative Medicine [facility] [address] [address] Mary Mayfield MD [address] [place] [address] [place] [address] Health Maintenance Due Date Last Done Comments Depression Screening 1957 Albumin/Creatinine Ratio 02/07/1964 CKD PHOS USE SMARTSET 65932 02/07/1964 Zoster Vaccines (2 of 3) 10/29/2013 09/03/2013 COVID-19 Vaccine (2022- season) 2023 01/09/2022, 06/28/2021, 11/10/2020, Additional history exists Influenza Vaccine (FLU shot) (#1) 2024 09/05/2023, 09/05/2023, 06/27/2022, Additional history exists GFR 09/18/2024 03/18/2024, 02/16, 02/26/2024, Additional history exists CKD HGB USE SMARTSET 12711 03/18/202503/18, 03/18/2024, 03/11/2024, Additional history exists DTaP,Tdap,and [...] this encounter Medical Devices Implanted Type Area Highway Traffic Control Technician Device Identifier Shelf Expiration Date Model / Serial / Lot Port Implant W/8f Poly Cath - [id number] Implanted:Qty : 1 on 09/21/2023 by Phill Patrick MD at OR [facility] Right: Chest CR BARD : PERIPHERAL VASCULAR [id number] 08/16/2024 [id number] / / [id number] documented as of this encounter Visit Diagnoses [...] Documents on File Type Date Recorded Patient Snuff Grinder And Screener Expl anation POLST 12/13/2023 10:22 AM POLST [...] the patient have Health Care Power of Die Reamer? Yes, not currently available * Full Code [...] Power of Attor panchito? No Care Teams Sr. Manager Relationship Specialty Start Date End Date Elissa Carrero MD [address] [address] PCP - General Family Medicine 12/29/22 documented as of this encounter
--- OUTSIDE RECORDS SUMMARY | 2024-04-28 12:39 | External Medical Summary | Summary of Care ---
Author Name Unknown Organization [facility] Address [address] [place] [address] Phone [phone] Care Team Providers Care Student Services Counselor Name Role Phone Elissa Carrero MD Primary Care Provider Reason for Visit * Reason Comments Chemotherapy Trodelvy. * Episode Based Medications (Routine) - Authorized Specialty Diagnoses / Procedures Referred By Carolina t Referred To Contact Diagnoses Cancer of left renal pelvis (HCC) Encounter for antineoplastic chemotherapy Malignant neoplasm of overlapping sites of bladder (HCC) Procedures [place] FOSAPREPITANT INJECTION [place] SACITUZUMAB GOVITECAN-HZIY Romel Perez MD [address] [place] [address] [place] [address] Anc Hem/Onc [address] [address] Referral ID Status Reason Start Date Expiration Date V isits Requested Visits Authorized [id number] Authorized 02/04/2024 09/16/2099 999 999 Encounter Details Date Type Department Care Team (Latest Contact Info) Description 02/26/2024 1:30 PM EDT Hem/Onc Treatment Hematology/Oncolog y Treatment, [address] [address] Tammy, Chair 7 Hem Onc [address] [place] [address] Cancer of left renal pelvis (HCC)*; Encounter [...] PM EDT Chair 7. Patient arrived for [facility]. Patient was seen by Dr. Perez [...] Description 04/01/2024 12:00 PM EDT Laboratory Laboratory [facility] Tammy [place] [address] [place] [phone] Tammy, Lab [facility] [address] [place] [address] [address] 04/01/2024 1:00 PM EDT Hem/Onc Treatment Hematology/Oncology Treatment, [place] [address] [place] [phone] Tammy, Chair 1 Hem Onc [facility] [address] [place] [address] 04/08/2024 8:20 AM EDT Laboratory Laboratory [facility] Tammy [place] [address] [place] [address] Tammy, Lab Scene [address] [place] [address] [place] [address] 04/08/2024 9:00 AM EDT Office Visit Hematology/Oncology [facility] Tammy [place] [address] [place] [address] Romel Perez MD [address] [place] [address] 04/08/2024 9:30 AM EDT Hem/Onc Treatment Hematology/Oncology Treatment, [address] [phone] Tammy, Chair 9 Hem Onc [address] [address] 05/14/2024 10:00 AM EDT Office Visit Palliative Medicine [facility] [address] [address] Mary Mayfield MD [address] [place] [address] [place] [address] Health Maintenance Due Date Last Done Comments Depression Screening 1957 Albumin/Creatinine Ratio 02/07/1963 CKD PHOS USE SMARTSET 50371 02/07/1964 Zoster Vaccines (2 of 3) 10/29/2013 09/03/2013 COVID-19 Vaccine (2022- season) 2023 01/09/2022, 06/28/2021, 11/10/2020, Additional history exists Influenza Vaccine (FLU shot) (#1) 2024 09/05/2023, 09/05/2023, 06/27/2022, Additional history exists GFR 09/18/2024 03/18/2024, 02/16, 02/26/2024, Additional history exists CKD HGB USE SMARTSET 32200 03/18/202503/18, 03/18/2024, 03/11/2024, Additional history exists DTaP,Tdap,and [...] this encounter Medical Devices Implanted Type Area Awning Hanger Supervisor Device Identifier Shelf Expiration Date Model / Serial / Lot Port Implant W/8f Poly Cath - [id number] Implanted:Qty : 1 on 09/21/2023 by Pihll Patrick MD at OR [facility] Right: Chest CR BARD : PERIPHERAL VASCULAR [id number] 08/16/2024 [id number] / / [id number] documented as of this encounter Visit Diagnoses [...] Documents on File Type Date Recorded Patient Composition Stone Applicator Expl anation POLST 12/13/2023 10:22 AM POLST [...] the patient have Health Care Power of Polysomnographer? Yes, not currently available * Full Code [...] Power of Attor panchito? No Care Teams Student Services Counselor Relationship Specialty Start Date End Date Elissa Carrero MD [address] [address] PCP - General Family Medicine 12/29/22 documented as of this encounter
--- OUTSIDE RECORDS SUMMARY | 2024-04-28 12:39 | External Medical Summary | Summary of Care ---
Author Name Unknown Organization [facility] Address [address] [facility] [place] [address] Phone [phone] Care Team Providers Care Abstract Manager Name Role Phone Elissa Carrero MD Primary Care Provider Reason for Visit * Reason Onset Date Comments Advice 03/26/2024 Encounter Details Date Type Department Care Team (Late st Contact Info) Description 03/26/2024 Telephone Hematology/Oncology [facility] Tammy [place] [facility] [place] [phone] Romel Perez MD 200 [facility] [place] [address] Advice Allergies Active Allergy Reactions Criticality Noted [...] mRNA, LNP-s, No Pre serve, 2-Dose Series ([employer]) 01/09/2022,06/28/2021,11/10/2020,10/21 Pneumococcal Conjugate Vacc, 13 Valent (Prevnar) [...] Dr. Perez - [facility], doesn't have a follow up [...] Pt states he will go to [facility] ER after he showers. Dr. Perez- [facility]. documented in this encounter Plan of Treatment Upcoming Encounters Date Type Department Care Team (Late st Contact Info) Description 04/01/2024 12:00 PM EDT Laboratory Laboratory [facility] [place] [address] [place] [phone] Tammy Lab [facility] [address] [place] [address] 04/01/2024 1:00 PM EDT Hem/Onc Treatment Hematology/Oncology Treatment, [place] [address] [place] [phone] Tammy, Chair 1 Hem Onc [facility] [address] [place] [address] 04/08/2024 8:20 AM EDT Laboratory Laboratory [facility] Tammy [place] [address] [place] [phone] Tammy Lab [facility] 200 [facility] [place] [address] 04/08/2024 9:00 AM EDT Office Visit [facility]ematology[facility]cology [facility] [phone] Romel Perez MD 200 [facility] [place] [address] 04/08/2024 9:30 AM EDT Hem/Onc Treatment Hematology/Oncology Treatment, [address] [place] [address] Tammy, Chair 9 Hem Onc [address] [place], [place] [address] 05/14/2024 10:00 AM EDT Office Visit Palliative Medicine [address], [place] [phone] Mary Mayfield MD [address] [place] [address] Health Maintenance Due Date Last Done Comments Depression Screening 1957 Albumin/Creatinine Ratio 02/07/1964 CKD PHOS USE SMARTSET 36639 02/07/1964 Zoster Vaccines (2 of 3) 10/29/2013 09/03/2013 COVID-19 Vaccine ( season) 2023 01/09/2022, 06/28/2021, 11/10/2020, Additional history exists Influenza Vaccine (FLU shot) (#1) 2024 09/05/2023, 09/05/2023, 06/27/2022, Additional history exists GFR 09/18/2024 03/18/2024, 02/16, 02/26/2024, Additional history exists CKD HGB USE SMARTSET 84648 03/18/202503/18, 03/18/2024, 03/11/2024, Additional history exists DTaP,Tdap,and [...] this encounter Medical Devices Implanted Type Area Internet Marketing Executive Device Identifier Shelf Expiration Date Model / Serial / Lot Port Implant W/8f Poly Cath - [id number] Implanted:Qty : 1 on 09/21/2023 by Phill Patrick MD at OR [facility] Right: Chest CR BARD : PERIPHERAL VASCULAR [id number] 08/16/2024 [id number] / / [id number] documented as of this encounter Advance Directives Documents on File Type Date Recorded Patient Supervisor Felting Expl anation POLST 12/13/2023 10:22 AM POLST [...] the patient have Health Care Power of Ichthyologist? Yes, not currently available * Full Code [...] Power of Attor panchito? No Care Teams Abstract Manager Relationship Specialty Start Date End Date Elissa Carrero MD [address] [address] PCP - General Family Medicine 12/29/22 documented as of this encounter
--- NOTE | 2024-04-28 13:22 | Electrocardiogram Report ---
Test Reason : Blood Pressure : */* mmHG Vent. Rate : 96 BPM Atrial Rate : 96 BPM P-R Int : 126 ms QRS Dur : 74 ms QT Int : 340 ms P-R-T Axes : 64 21 26 degrees QTcB Int : 429 ms Normal sinus rhythm Low voltage QRS Nonspecific T wave abnormality Abnormal ECG When compared with ECG of 26-Mar-2024 17:43, No significant change was found Confirmed by Jeffrey Elliott ([id number]) on 04/28/2024 1:21:54 PM Referred By: Confirmed By: Jeffrey Elliott
--- NOTE | 2024-04-28 13:28 | History & Physical Report ---
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 Shortness of breath Reported hypoxia per EMS prior to arrival but now saturating at 95% on room air CXR left greater right pleural effusions with left basilar consolidation again noted. Multifocal pulmonary metastasis redemonstrated CT chest wo con for better visualization Considering PE given sudden onset of SOB, underlying cancer - will order VQ scan (h/o solitary kidney) if CT chest wo clear explanation of SOB Venous dopplers given new BLE edema 2D echo from November 2023 with preserved EF 60-64%, AV sclerosis PRN nebs, incentive spirometry, supplemental O2 PRN Chest pain Seems pleuritic, also with known metastatic disease on R chest Initial ECG unchanged, HS trop negative CT chest pending Monitor troponin History of metastatic urothelial carcinoma with mets to R lung, s/p nephrectomy EMS reported patient was hypoxic in the low 80s initially but improved in the ED and is now saturating 94% on room air Follows with Dr. Perez - Had a follow-up CT scan done on 08/31/2023 that unfortunately showed disease progression with worsening nodular density left nephrectomy bed as well as metastases with indeterminate right lung nodule Chemo treatment has been on hold for the last 3 weeks because of the deteriorating of his general condition and performance status Per heme onc note, Dr. Perez has discussed with patient and in detail the diagnosis and prognosis as patient has an incurable disease Following with [facility] palliative service, has discussed hospice and not interested at this time Continue gabapentin, Megace, PRN tylenol BPH Flomax HS DVT Ppx: SQ heparin Code status: DNR PCP: Magan Hanson) Dispo: admitting to [facility] tele Patient seen in collaboration with Dr. Kuhn. Please see addendum. I spent a total of 75 minutes coordinating, documenting, and providing care for this patient excluding time spent in the performance of separately billed services. 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 EMS reported patient was hypoxic in the low 80s initially but improved in the ED and is now saturating 94% on room air. Endorses feeling more short of breath over the past few days and noticed some swelling in his ankles since yesterday. Has some pain across chest and onto R side with deep inspiration. Pain is non-radiat ing. No palpitations. Denies any history of known heart failure. No fever, chills, cough or congestion. Follows with Dr. Perez of heme onc with history of high-grade urothelial carcinoma involving the bladder status post resection followed by the treatment with BCG twice in 2016. Had a follow-up CT scan done on 08/31/2023 that unfortunately showed disease progression with worsening nodular density left nephrectomy bed as well as metastases with indeterminate right lung nodule. Chemo treatment has been on hold for the last 3 weeks because of the deteriorating of his general condition and performance status. Per heme onc note, Dr. Perez has discussed with patient and in detail the diagnosis and prognosis as patient has an incurable disease. Is due for follow up blood work with Dr. Perez tomorrow. Does feel appetite has improved with Megace. No N/V. + Generalized weakness, no recent falls. Following with [facility] palliative service, has discussed hospice and not interested at this time. Allergies Allergy/AdvReac Type Severity Reaction Status Date / Time lisinopril Allergy Severe LIP EDEMA Verified 11/28/23 19:39 Home Medications Medication Instructions Recorded Confirmed Type gabapentin 600 mg tablet 600 mg PO BID 11/19/23 04/28/24 History lidocaine 5 % topical patch 1 patch topical DAILY PRN Pain 11/19/23 04/28/24 History lidocaine-prilocaine 2.5 %-2.5 % 1 applic topical DIRECTED PRN 1 11/19/23 04/28/24 History topical cream HR PRIOR TO MEDIPORT ACCESS ondansetron HCl 8 mg tablet 8 mg PO Q8H PRN NAUSEA/VOMITING 11/19/23 04/28/24 History tramadol 50 mg tablet 50 mg PO Q8H PRN Pain 11/19/23 04/28/24 History megestrol 625 mg/5 mL (125 mg/mL) 5 ml PO DAILY 04/28/24 04/28/24 History oral suspension tamsulosin 0.4 mg capsule 0.4 mg PO HS 04/28/24 04/28/24 History Past Med/Surg History Problem List (Updated 04/28/24 @ 19:21 by Joao Perez MD) Congestive heart failure (Acute) Hypertension (Chronic) Pulmonary nodule SOB (shortness of breath) (Acute) Chronic low back pain (Chronic) Medical History (Updated 04/28/24 @ 19:21 by Joao Perez MD) BPH (benign prostatic hyperplasia) Pleural effusion Hypercholesteremia Peripheral arterial disease Transitional cell carcinoma Surgical History (Updated 04/28/24 @ 15:02 by Mayela Fu PA-C) S/P angioplasty with stent S/P lumbar spinal fusion History of appendectomy History of nephroureterectomy left Family History Other Heart disease Social History Smoking Status: Never smoker Second Hand Exposure: No; Do You Dip or Chew Tobacco: No; Tobacco Cessation Education Requested by Patient: No Hx Alcohol Use: No Hx Substance Use: No Preferred Language: Gabonese Communication Ability: Effective Marble Rubber Required: No Beliefs That Will Affect Care: None Current Living Situation: Spouse Current Living Situation Comment: house Other Information That Helps Us Care for You: No Feels Safe at Home: Yes Safety Concerns: Feels Safe At This Time Assistive Devices: Cane, Denture - Upper, Denture - Lower and Scooter/Electric Scooter Assistive Devices Comment: cane at home, electric wheel chair when out of the home Review of Systems Review of Systems: At least ten systems reviewed and negative except as noted in the HPI. Physical Exam Physical Exam: General Appearance: WD/WN, vitals as above, NAD, sitting up in bed, pleasant, appears chronically ill, conversing easily Head: normocephalic, atraumatic Eyes: normal inspection, PERRL, conjunctivae normal, anicteric sclerae ENT: external ear and nose normal, oropharynx normal Neck: normal visual inspection, trachea midline, no thyromegaly Respiratory: normal respiratory effort, lungs clear to auscultation, no wheeze, rales, rhonchi. No accessory muscle use Cardiovascular: regular rate, rhythm, normal peripheral pulses, 1+ BLE edema. Vessels: no JVD Chest: normal inspection of chest Abdomen/GI: normal bowel sounds, soft, nontender, no hepatosplenomegaly Extremities/Musculoskeletal: no cyanosis or clubbing, extremities motor strength 5/5 Neurologic: PERRL, EOMI, accommodation nl, no face palsy, no dysarthria, CN's II-XI intact bilaterally and moves all extremities Psychiatric: A+Ox3, depressed mood Skin: no rashes, normal color, warm/dry Results & Data Results & Data Vital Signs (Past 12 Hours) Vital Signs Temp Pulse Pulse Resp BP BP Pulse Ox 04/28/24 12:10 68 15 134/81 94 04/28/24 11:30 72 15 127/81 94 04/28/24 11:00 69 15 130/81 95 04/28/24 10:30 85 20 142/88 H 96 04/28/24 10:28 84 20 95 04/28/24 10:00 91 H 21 144/91 H 93 04/28/24 09:57 91 H 21 93 04/28/24 09:50 90 17 135/91 93 04/28/24 09:40 128/94 04/28/24 09:30 18 138/87 94 04/28/24 09:26 90 04/28/24 09:10 933 H 19 95 04/28/24 09:10 36.8 C 93 H 19 135/91 95 04/28/24 09:10 95 04/28/24 09:10 36.8 C 93 H 20 135/91 95 O2 Del Method 04/28/24 12:10 04/28/24 11:30 04/28/24 11:00 04/28/24 10:30 04/28/24 10:28 Room Air 04/28/24 10:00 04/28/24 09:57 04/28/24 09:50 04/28/24 09:40 04/28/24 09:30 04/28/24 09:26 04/28/24 09:10 Room Air 04/28/24 09:10 Room Air 04/28/24 09:10 Room Air 04/28/24 09:10 Room Air Laboratory Results Short CBC 04/28/24 Range/Units 10:14 WBC 13.24 H (4.8-10.8) K/ul Hgb 13.5 L (14.0-18.0) g/dl Hct 42.0 (42.0-52.0) % Plt Count 353 (130-400) K/uL BMP 04/28/24 10:14 Sodium 136 Potassium 4.9 Chloride 105 Carbon Dioxide 22 BUN 28 H Creatinine 1.19 Glucose 79 Calcium 9.8 Liver Function 04/28/24 Range/Units 10:14 Total Bilirubin 0.7 (0.2-1.0) mg/dl AST 37 (13-39) U/L ALT 17 (7-52) U/L Alkaline Phosphatase 335 H (34-104) U/L Albumin 3.2 L (3.4-5.0) gm/dl Urine 04/28/24 Range/Units 10:22 Urine Color Yellow Urine Appearance Clear (Clear) Urine pH 6.5 (4.5-7.5) Ur Specific [place] 1.017 (1.000-1.030) Urine Protein Negative (Negative) Urine Glucose (UA) Negative (Negative) Diagnostic Findings Chest X-Ray 04/28/24 09:24 XR chest 1V portable HISTORY: 79 years-old Male Dyspnea COMPARISON: 03/26/2024 TECHNIQUE: AP view of the chest FINDINGS: Cardiac mediastinal and hilar silhouettes are unchanged. Right IJ Mzvljn-e-Vhld catheter is in stable positioning. Unchanged left greater than right pleural effusion with left basilar predominant consolidation. 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 No pneumothorax or pulmonary edema. Bones appear grossly intact. IMPRESSION: 1. Left greater right pleural effusions with left basilar consolidation again noted. 2. Multifocal pulmonary metastasis redemonstrated. ACT 112: Negative or not required by law. The above report was generated using voice recognition software. It may contain grammatical, syntax or spelling errors. Electronically signed by: Narendra Mckee M.D. 04/28/2024 11:26 AM ECG Additional Comments: EKG reviewed - NSR, no significant changes from previous Supervising Physician Co-Signing Physician Notes Attending Addendum: Case reviewed with the advanced practitioner. I have personally performed a history and physical examination on the patient. I have reviewed the advanced practitioner's documentation on the date of service referenced in note, and I agree with, and take responsibility for the plan of care. please refer to her notes for full details patient seen and examined, records reviewed by myself as well on exam, patient Seen resting in bed, on room air, not in distress but reports mild dyspnea Denies any other symptoms no other symptoms VS noted and reviewed oriented x 3, not in distress, speaks in sentences with no effort nor accessory muscle use normal rate, regular rhythm, no murmurs clear breath sounds bilaterally non distended, soft, nontender no bipedal edema, erythema, warmth no neuro deficits all labs, imaging noted and reviewed ASSESSMENT AND PLAN> Shortness of breath, multifactorial Pleural effusion, pulmonary metastases Rule out acute PE History of bladder and renal CA, with pulmonary, skeletal mets CT chest: 1. Progressive metastasis includes worsening of the lymphatic, pulmonary, hepatic and osteolytic skeletal disease. 2. Increased size of the pleural effusions with probable pleural metastasis. 3. Intralobular septal thickening may represent a component of pulmonary edema. 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 4. Bony destruction/pathologic fracturing involves several bilateral ribs and also the C7 vertebral body without retropulsion. On 2 L of O2 via nasal cannula Pleural effusion too small for paracentesis Discussed with patient's oncologist Ana-start Decadron IV for pain control VQ scan ordered to rule out PE other diagnoses and plan of care as per advanced practitioner's notes Oli Kuhn MD
--- NOTE | 2024-04-28 16:27 | Ultrasound Report ---
BILATERAL LOWER EXTREMITY VENOUS DOPPLER HISTORY: Acute pain and swelling of the lower legs BLE edema COMPARISON STUDY: None. FINDINGS: There is normal compressibility, flow, and augmentation within the bilateral lower extremit y deep venous systems. IMPRESSION: No DVT within the right or left lower extremity. ACT 112: Negative or not required by law. Electronically signed by: Narendra Mckee M.D. 04/28/2024 4:26 PM
--- NOTE | 2024-04-28 17:07 | CT Scan Report ---
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 Acute shortness of breath. TECHNIQUE: Multiaxial CT images of the chest were performed without contrast. A dose lowering techni que was utilized adhering to the principles of ALARA. COMPARISON: Chest CT 11/28/2023, CT abdomen and pelvis 03/26/2024. FINDINGS: No thyroid nodule. Limited study without the use of IV contrast. Progressive lymphadenopath y includes an index 1.7 x 1.6 cm right paratracheal lymph node on image 94 series 4, previously 1.2 x 1.1 cm. The lymph nodes within the posterior mediastinum adjacent to the esophagus have also increas ed in size. Trace pericardial effusion. Extensive coronary artery calcifications. Mild ectasia of the ascending thoracic aorta, 3.9 cm. Right IJ Wjyalm-f-Urjc catheter in the distal tip terminates withi n the mid SVC. Extensive pulmonary metastasis is redemonstrated, which has also progressed. This incl udes an index 2.1 cm right apical lesion on image 65, previously 1.2 cm. Intralobular septal thickeni ng. Layering ugmnq-cf-lxomccar pleural effusions. Pleural thickening is noted, left greater than righ t with mild bibasilar consolidation. Central airways are patent. Extensive hepatic metastasis have also progressed. A 6.5 cm lesion within the right hepatic lobe, pre viously measured 6 cm on the 03/26/24 study. 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 Osteolytic destructive lesion at C7 with pathologic compression fracture. No definite retropulsion. Numerous osteolytic body lesions. There may be tumor involvement involving the left neural foramen at T11-T12. IMPRESSION: 1. Progressive metastasis includes worsening of the lymphatic, pulmonary, hepatic and osteolytic skel etal disease. 2. Increased size of the pleural effusions with probable pleural metastasis. 3. Intralobular septal thickening may represent a component of pulmonary edema. 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 4. Bony destruction/pathologic fracturing involves several bilateral ribs and also the C7 vertebral b natanael without retropulsion. ACT 112: Negative or not required by law. Dictated: 04/28/2024 4:15 PM Transcribed: 04/28/2024 4:38 PM Johnny [id number] [email or web address] Electronically signed by: Narendra Mckee M.D. 04/28/2024 5:06 PM
[2024-04-28] MEDS ORDERED: LIDOCAINE 5% 1 PATCH TD PRN (17:12)
[2024-04-28] MEDS ORDERED: ALBUT/IPRATROP 3MG/0.5MG NEB 3 ML VIAL NEB PRN (17:12)
[2024-04-28] MEDS ORDERED: traMADol HCL 50 MG TABLET PO PRN (17:12)
[2024-04-28] MEDS ORDERED: ACETAMINOPHEN 325 MG TAB PO PRN (17:12)
[2024-04-28] MEDS: oxyCODONE HCL IR 5 MG TAB (IMMEDIATE RELEASE) PO STA (17:39)
[2024-04-28] MEDS: LIDOCAINE 5% 1 PATCH TD STA (17:39)
[2024-04-28] MEDS: ACETAMINOPHEN 500 MG TAB PO SCH (17:40)
[2024-04-28] MEDS: HEPARIN 100 UNIT/ML 5ML FLUSH FLUSH PRN (17:40)
[2024-04-28] MEDS: traMADol HCL 50 MG TABLET PO PRN (19:43)
[2024-04-28] MEDS: POLYETHYLENE (MIRALAX) 17 GM PACK PO PRN (19:43)
[2024-04-28] MEDS ORDERED: DEXAMETHASONE SOD INJ 4 MG/ML VIAL IV SCH (21:00)
[2024-04-28] MEDS: HEPARIN SOD 5,000 UNIT/0.5 ML VIAL SQ SCH (21:02)
[2024-04-28] MEDS: dexAMETHasone 4 MG in SYRINGE 0 ML IV SCH (21:02)
[2024-04-28] MEDS: TAMSULOSIN HCL 0.4 MG CAP PO SCH (21:02)
[2024-04-28] MEDS: GABAPENTIN 600 MG TAB PO SCH (21:02)
[2024-04-28] MEDS: oxyCODONE HCL IR 5 MG TAB (IMMEDIATE RELEASE) PO PRN (23:48)
--- OUTSIDE RECORDS SUMMARY | 2024-04-29 04:55 | External Medical Summary | Summary of Care ---
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 Role Phone Elissa Carrero MD Primary Care Provider Reason for Visit * Reason Onset Date Comments Emergency Department Follow-Up 04/28/2024 Encounter Details Date Type Department Care Team (Late st Contact Info) Description 04/28/2024 Telephone Family Medicine, [facility] [address] [facility] [address] [place] [phone] Elissa Carrero MD [address] [facility] [address] [place] [address] Emergency Department Follow-Up Allergies Active Allergy Reactions Criticality Noted Date Comments Lisinopril 07/04/2019 Other reaction(s): Angioedema Piroxicam 10/25/2022 Other reaction(s): muscle spasms documented as of this encounter (statuses as of 04/28/2024) Medications Medication Sig Dispensed Refills Start Date [...] Pain, Moderate. 90 Tablet 2 04/23/2024 Active documented as of this encounter (statuses as of 04/28/2024) Active Problems Problem Noted Date Diagnosed Date [...] as of this encounter (statuses as of 04/28/2024) Resolved Problems Problem Noted Date Diagnosed Date Resolved Date Stage 3a chronic kidney disease 10/27/2022 01/24/2023 Overview: Per CKD protocol documented as of this encounter (statuses as of 04/28/2024) Immunizations Name Administration Dates Next Due COVID-19 mRNA, LNP-s, No Pre serve, 2-Dose Series ([email or web address]) 01/09/2022,06/28/2021,11/10/2020,10/21 Pneumococcal Conjugate Vacc, 13 Valent (Prevnar) [...] encounter Miscellaneous Notes * Telephone Encounter - Yumi Booth TECH - 04/28/2024 9:51 AM EDT Called to speak with patient regarding er visit on 04-26-24 to [facility] for constipation. Unable to leave a message at this time, phone just rang with no answer documented in this encounter Plan of Treatment Upcoming Encounters Date Type Department Care Team (Late st Contact Info) Description 04/29/2024 11:50 AM EDT Laboratory Laboratory [facility] [address] [place] [phone] [facility] [place] [address] [place] [id number] 04/29/2024 12:30 PM EDT Office Visit Hematology/Oncology [facility] [address] [place] [phone] Romel Perez MD [address] [facility] [place] [address] 04/29/2024 1:00 PM EDT Hem/Onc Treatment Hematology/Oncology [address] [phone] Tammy, Chair 7 Hem Onc [address] [place] [address] 05/14/2024 10:00 AM EDT Office Visit Palliative Medicine [facility] [address] [phone] Mary Mayfield MD [address] [place] [address] [place] [id number] Health Maintenance Due Date Last Done Comments Depression Screening 1957 Albumin/Creatinine Ratio 02/07/1964 CKD PHOS USE SMARTSET 64568 02/07/1963 Zoster Vaccines (2 of 3) 10/29/2013 09/03/2013 COVID-19 Vaccine ( season) 2023 01/09/2022, 06/28/2021, 11/10/2020, Additional history exists Influenza Vaccine (FLU shot) (#1) 2024 09/05/2023, 09/05/2023, 06/27/2022, Additional history exists GFR 10/15/2024 04/14/2024, 03/17, 03/18/2024, Additional history exists CKD HGB USE SMARTSET 57590 04/14/202504/14, 04/14/2024, 04/01/2024, Additional history exists DTaP,Tdap,and [...] this encounter Medical Devices Implanted Type Area [employer] Cross[employer] Protection Maintainer Device Identifier Shelf Expiration Date Model / Serial / Lot Port Implant W/8f Poly Cath - [id number] Implanted:Qty : 1 on 09/21/2023 by Phill Patrick MD at OR [facility] Right: Chest CR BARD : PERIPHERAL VASCULAR [id number] 08/16/2024 [id number] / / [id number] documented as of this encounter Advance Directives Documents on File Type Date Recorded Patient Time Study Analyst Expl anation POLST 12/13/2023 10:22 AM [...] the patient have Health Care Power of Registered Dietician? Yes, not currently available * Full Code [...] of Attor panchito? No Care Teams Farm Implement Engine Mechanic Relationship Specialty Start Date End Date Elissa Carrero MD [address] [address] PCP - General Family Medicine 12/29/22 documented as of this encounter
[2024-04-29 07:11] LABS: Hematocrit (blood only) 38.2 % (42.0-52.0); Hemoglobin 12.3 g/dl (14.0-18.0); Mean Corpuscular Hgb Conc 32.2 g/dL (32.0-36.0); Mean Platelet Volume 9.8 fL (9.4-12.4); Platelet Count 341 K/uL (130-400); RDW Coefficient of Variation 16.6 % (11.5-14.5); Red Blood Count 4.39 M/uL (4.70-6.10); White Blood Count 10.05 K/ul (4.8-10.8)
[2024-04-29 07:28] LABS: BUN Creatinine Ratio 26.1 (10-20); Calcium 9.5 mg/dl (8.6-10.3); Creatinine Clr Calc Pharmacy 42.8 ml/min; Est GFR (African American) 67.4 ml/min; Est GFR (Non-African American) 58.2 ml/min; Potassium 5.3 mmol/L (3.5-5.1)
[2024-04-29] MEDS: ONDANSETRON INJ 2 MG/ML 2 ML VIAL IV PRN (08:34)
[2024-04-29] MEDS: MEGESTROL ACETATE SUSP 400 MG/10 ML UDC PO SCH (08:47)
--- NOTE | 2024-04-29 10:38 | Nuclear Medicine Report ---
NM pul perfusion CLINICAL HISTORY: Redness of breath.. COMPARISON STUDY: Chest CT 04/28/2024. TECHNIQUE: Immediately following intravenous administration of 5.6 mCi of technetium 99 M MAA for the perfusion scan, anterior, oblique, lateral, and posterior views of the chest were obtained. FINDINGS: Scattered small perfusion defects seen throughout the lungs likely corresponds the patient' s known pulmonary metastases. Blunting of the costophrenic sulci consistent with the patient's small bilateral pleural effusions. No large defects identified. IMPRESSION: Scattered small perfusion defects within the lungs likely corresponds the patient's know n pulmonary metastases. Therefore, this is consistent with a low probability scan. ACT 112: Negative or not required by law. Electronically signed by: Troy Livingston M.D. 04/29/2024 10:36 AM
[2024-04-29] MEDS: HYDROmorphone INJ 0.5 MG/0.5 ML SYR IV PRN (12:01)
--- NOTE | 2024-04-29 12:02 | Palliative Care Consultation ---
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 He states he has been told he should think about hospice but he wants a second opinion (2) Weakness generalized: (3) Advanced care planning/counseling discussion: 60min face to face with pt and at bedside he talks about being told he has aggressive disease but says he isn't ready to give up, there has to be something more out there and he wants a second opinion. has mixed feelings, noting it might be best to enroll in hospice bc he is so weak and spends >80% day resting and sleeping, he is not eating, he is very weak. she adds that she will support whatever decision he makes and advocates for a second opinion. hospice discussed. he reiterates not feeling he is at that point yet; states they know cancer is not curable but they were told it might be con trollable. Oncology consult ordered at their request, Dr May notified. Pt would like OP Pall med follow up with me in clinic, we will schedule (4) Encounter for hospice care discussion: I provided education about the hospice benefit: an interdisciplinary program offered for patients with a terminal condition and a life expectancy of less than 6 months. This is covered by Medicare at 100%/no out of pocket expense to patient and all meds/supplies needed by patient for the reason they are on hospice are paid for/covered by hospice. The goal is assure quality of life of the patient in their home setting (home, penitentiary, inpatient hospice setting) by providing symptoms management, psychosocial and spiritual support. However, they cannot offer 24 hours care and if the family is unable to provide that care, they will have to consider personal care with out of pocket cost vs. penitentiary placement. (5) Palliative care by specialist: Plan above Thank you for allowing us to participate in the ongoing care of this patient. Please page with any additional concerns. 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 He came to [facility] ED with c/o worsening dyspnea. 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, mostly lived and [place] He was exposed repeatedly to [place], notes this is AO related disease and he is [facility] through the [facility] Pt reports signif right lower to mid quadrant pain without much radiation There is also back pain which he notes is more chronic Unable to get comfortable, mostly sleeps in recliner 2 story home and must stay on 1st floor where a second primary suite with bath is available but he does not like it pain is deep, aching and sometimes throbbing does not often radiate but sometimes can feels like the areas around it are sore declining PS for weeks per Not taking a lot of PO but started megace this past week and feels maybe it is helping weight loss has persisted he spends >80% of days resting/sleeping per Allergies Allergy/AdvReac Type Severity Reaction Status Date / Time lisinopril Allergy Severe LIP EDEMA Verified 11/28/23 19:39 Home Medications Medication Instructions Recorded Confirmed Type gabapentin 600 mg tablet 600 mg PO BID 11/19/23 04/28/24 History lidocaine 5 % topical patch 1 patch topical DAILY PRN Pain 11/19/23 04/28/24 History lidocaine-prilocaine 2.5 %-2.5 % 1 applic topical DIRECTED PRN 1 11/19/23 0 04/28/24 History topical cream HR PRIOR TO MEDIPORT ACCESS ondansetron HCl 8 mg tablet 8 mg PO Q8H PRN NAUSEA/VOMITING 11/19/23 04/28/24 History tramadol 50 mg tablet 50 mg PO Q8H PRN Pain 11/19/23 04/28/24 History megestrol 625 mg/5 mL (125 mg/mL) 5 ml PO DAILY 04/28/24 04/28/24 History oral suspension tamsulosin 0.4 mg capsule 0.4 mg PO HS 04/28/24 04/28/24 History Patient History Medical History (Updated 04/29/24 @ 18:25 by Bethany Chavis DNP) BPH (benign prostatic hyperplasia) Pleural effusion Hypercholesteremia Peripheral arterial disease Transitional cell carcinoma Surgical History (Updated 04/28/24 @ 15:02 by Mayela Fu PA-C) S/P angioplasty with stent S/P lumbar spinal fusion History of appendectomy History of nephroureterectomy left Family History Other Heart disease Social History Smoking Status: Never smoker Second Hand Exposure: No; Do You Dip or Chew Tobacco: No; Tobacco Cessation Education Requested by Patient: No Hx Alcohol Use: No Hx Substance Use: No Preferred Language: Greek Communication Ability: Effective Frame Stripper Required: No Beliefs That Will Affect Care: None Current Living Situation: Spouse Current Living Situation Comment: house Other Information That Helps Us Care for You: No Feels Safe at Home: Yes Safety Concerns: Feels Safe At This Time Assistive Devices: Cane and Scooter/Electric Scooter Assistive Devices Comment: cane at home, electric wheel chair when out of the home Review of Systems Review of Systems: All systems reviewed & are unremarkable except as noted in Subjective Physical Exam Physical Exam: Frail, cachectic bitemp wasting perrla MM dry dentition intact neck supple, no stridor resp effort WNL at rest no rhonchi, wheeze, few rales right mid to lower quad abd pain to palpation BS + gen weakness AAOx3 skin pale, scatt ecchymoses Results & Data Vital Signs (Past 12 Hours) Vital Signs Temp Pulse Resp BP BP Pulse Ox O2 Del Method 04/29/24 11:17 36.6 C 85 20 159/90 H 96 Nasal Cannula 04/29/24 10:00 Nasal Cannula 04/29/24 08:01 36.7 C 59 L 20 147/81 H 100 Nasal Cannula 04/29/24 02:27 36.4 C L 87 20 152/91 H 96 Nasal Cannula O2 Flow Rate 04/29/24 11:17 2 04/29/24 10:00 2 04/29/24 08:01 2 04/29/24 02:27 2 Laboratory Results 04/29/24 04/29/24 04/28/24 Range/Units 14:32 06:37 22:41 WBC 10.05 (4.8-10.8) K/ul RBC 4.39 L (4.70-6.10) M/uL Hgb 12.3 L (14.0-18.0) g/dl Hct 38.2 L (42.0-52.0) % MCV 87.0 (80.0-100.0) fL MCH 28.0 (25.0-34.0) pg MCHC 32.2 (32.0-36.0) g/dL RDW Std Deviation 53.0 H (36.4-46.3) fL RDW Coeff of Karlene 16.6 H (11.5-14.5) % Plt Count 341 (130-400) K/uL MPV 9.8 (9.4-12.4) fL Immature Gran % (Auto) % Neut % (Auto) % Lymph % (Auto) % [place] % (Auto) % Eos % (Auto) % Baso % (Auto) % Neut # (Auto) (1.40-6.50) K/uL Lymph # (Auto) (1.20-3.40) K/uL [place] # (Auto) (0.11-0.59) K/uL Eos # (Auto) (0.00-0.50) K/uL Baso # (Auto) (0.00-0.20) K/uL Immature Gran # (Auto) (0.01-0.20) K/uL Sodium 135 L 136 (136-145) mmol/L Potassium 5.3 H 5.3 H (3.5-5.1) mmol/L Chloride 101 103 (98-107) mmol/L Carbon Dioxide 24 24 (21-32) mmol/L Anion Gap 10 9 (3-11) BUN 37 H 31 H (6-23) mg/dl Creatinine 1.32 1.19 (0.6-1.4) mg/dl Est Cr Clr Drug Dosing 38.6 42.8 ml/min Est GFR ( Amer) 59.5 67.4 ml/min Est GFR (Non-Af Amer) 51.3 58.2 ml/min BUN/Creatinine Ratio 28.0 H 26.1 H (10-20) Glucose 122 H 77 (70-99(Fasting)) mg/dl Calcium 10.0 9.5 (8.6-10.3) mg/dl Total Bilirubin (0.2-1.0) mg/dl AST (13-39) U/L ALT (7-52) U/L Alkaline Phosphatase (34-104) U/L Troponin I High Sens 13.8 (0-20) pg/ml B-Natriuretic Peptide (0-100) pg/ml Total Protein (6.0-8.3) gm/dl Albumin (3.4-5.0) gm/dl Globulin (2.5-4.0) gm/dl Albumin/Globulin Ratio (0.9-2) Urine Color Urine Appearance (Clear) Urine pH (4.5-7.5) Ur Specific [place] (1.000-1.030) Urine Protein (Negative) Urine Glucose (UA) (Negative) Urine Ketones (Negative) Urine Blood (Negative) Urine Nitrite (Negative) Urine Bilirubin (Negative) Urine Urobilinogen (Negative) Ur Leukocyte Esterase (Negative) Adenovirus (PCR) (NotDetected) B. pertussis DNA (PCR) (NotDetected) B.parapertussis DNA PCR (NotDetected) C. pneumoniae DNA (PCR) (NotDetected) Coronavirus OC43 (PCR) (NotDetected) Coronavirus HKU1 (PCR) (NotDetected) Coronavirus 229E (PCR) (NotDetected) SARS-CoV-2 (PCR) (NotDetected) Coronavirus NL63 (PCR) (NotDetected) Human Metapneumovir PCR (NotDetected) Influenza Type A (PCR) (NotDetected) Influenza Type B (PCR) (NotDetected) M. pneumoniae (PCR) (NotDetected) Parainfluenza 1 (PCR) (NotDetected) Parainfluenza 2 (PCR) (NotDetected) Parainfluenza 3 (PCR) (NotDetected) Parainfluenza 4 (PCR) (NotDetected) RSV (PCR) (NotDetected) Entero/Rhino (PCR) (NotDetected) 04/28/24 04/28/24 04/28/24 Range/Units 17:09 10:22 10:14 WBC 13.24 H (4.8-10.8) K/ul RBC 4.77 (4.70-6.10) M/uL Hgb 13.5 L (14.0-18.0) g/dl Hct 42.0 (42.0-52.0) % MCV 88.1 (80.0-100.0) fL MCH 28.3 (25.0-34.0) pg MCHC 32.1 (32.0-36.0) g/dL RDW Std Deviation 53.2 H (36.4-46.3) fL RDW Coeff of Karlene 16.7 H (11.5-14.5) % Plt Count 353 (130-400) K/uL MPV 10.0 (9.4-12.4) fL Immature Gran % (Auto) 0.8 % Neut % (Auto) 80.1 % Lymph % (Auto) 7.6 % [place] % (Auto) 10.0 % Eos % (Auto) 1.1 % Baso % (Auto) 0.4 % Neut # (Auto) 10.61 H (1.40-6.50) K/uL Lymph # (Auto) 1.00 L (1.20-3.40) K/uL [place] # (Auto) 1.33 H (0.11-0.59) K/uL Eos # (Auto) 0.14 (0.00-0.50) K/uL Baso # (Auto) 0.05 (0.00-0.20) K/uL Immature Gran # (Auto) 0.11 (0.01-0.20) K/uL Sodium 136 (136-145) mmol/L Potassium 4.9 (3.5-5.1) mmol/L Chloride 105 (98-107) mmol/L Carbon Dioxide 22 (21-32) mmol/L Anion Gap 9 (3-11) BUN 28 H (6-23) mg/dl Creatinine 1.19 (0.6-1.4) mg/dl Est Cr Clr Drug Dosing 42.8 ml/min Est GFR ( Amer) 67.4 ml/min Est GFR (Non-Af Amer) 58.2 ml/min BUN/Creatinine Ratio 23.5 H (10-20) Glucose 79 (70-99(Fasting)) mg/dl Calcium 9.8 (8.6-10.3) mg/dl Total Bilirubin 0.7 (0.2-1.0) mg/dl AST 37 (13-39) U/L ALT 17 (7-52) U/L Alkaline Phosphatase 335 H (34-104) U/L Troponin I High Sens 13.7 12.3 (0-20) pg/ml B-Natriuretic Peptide 210 H (0-100) pg/ml Total Protein 6.2 (6.0-8.3) gm/dl Albumin 3.2 L (3.4-5.0) gm/dl Globulin 3.0 (2.5-4.0) gm/dl Albumin/Globulin Ratio 1.1 (0.9-2) Urine Color Yellow Urine Appearance Clear (Clear) Urine pH 6.5 (4.5-7.5) Ur Specific [place] 1.017 (1.000-1.030) Urine Protein Negative (Negative) Urine Glucose (UA) Negative (Negative) Urine Ketones 1+ H (Negative) Urine Blood Negative (Negative) Urine Nitrite Negative (Negative) Urine Bilirubin Negative (Negative) Urine Urobilinogen Negative (Negative) Ur Leukocyte Esterase Negative (Negative) Adenovirus (PCR) Not Detected (NotDetected) B. pertussis DNA (PCR) Not Detected (NotDetected) B.parapertussis DNA PCR Not Detected (NotDetected) C. pneumoniae DNA (PCR) Not Detected (NotDetected) Coronavirus OC43 (PCR) Not Detected (NotDetected) Coronavirus HKU1 (PCR) Not Detected (NotDetected) Coronavirus 229E (PCR) Not Detected (NotDetected) SARS-CoV-2 (PCR) Not Detected (NotDetected) Coronavirus NL63 (PCR) Not Detected (NotDetected) Human Metapneumovir PCR Not Detected (NotDetected) Influenza Type A (PCR) Not Detected (NotDetected) Influenza Type B (PCR) Not Detected (NotDetected) M. pneumoniae (PCR) Not Detected (NotDetected) Parainfluenza 1 (PCR) Not Detected (NotDetected) Parainfluenza 2 (PCR) Not Detected (NotDetected) Parainfluenza 3 (PCR) Not Detected (NotDetected) Parainfluenza 4 (PCR) Not Detected (NotDetected) RSV (PCR) Not Detected (NotDetected) Entero/Rhino (PCR) Not Detected (NotDetected) Diagnostic Findings Chest X-Ray 04/28/24 09:24 XR chest 1V portable HISTORY: 79 years-old Male Dyspnea COMPARISON: 03/26/2024 TECHNIQUE: AP view of the chest FINDINGS: Cardiac mediastinal and hilar silhouettes are unchanged. Right IJ Ryirmw-z-Ymyg catheter is in stable positioning. Unchanged left greater than right pleural effusion with left basilar predominant consolidation. 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 No pneumothorax or pulmonary edema. Bones appear grossly intact. IMPRESSION: 1. Left greater right pleural effusions with left basilar consolidation again noted. 2. Multifocal pulmonary metastasis redemonstrated. ACT 112: Negative or not required by law. The above report was generated using voice recognition software. It may contain grammatical, syntax or spelling errors. Electronically signed by: Narendra Mckee M.D. 04/28/2024 11:[address] 04/28/24 15:05 CT chest diagnostic wo con CT DOSE: 269.24 mGy.cm CLINICAL HISTORY: 79 years-old Male with SOB, h/o met cancer to lung. Acute shortness of breath. TECHNIQUE: Multiaxial CT images of the chest were performed without contrast. A dose lowering technique was utilized adhering to the principles of ALARA. COMPARISON: Chest CT 11/28/2023, CT abdomen and pelvis 03/26/2024. FINDINGS: No thyroid nodule. Limited study without the use of IV contrast. Progressive lymphadenopathy includes an index 1.7 x 1.6 cm right paratracheal lymph node on image 94 series 4, previously 1.2 x 1.1 cm. The lymph nodes within the posterior mediastinum adjacent to the esophagus have also increased in size. Trace pericardial effusion. Extensive coronary artery calcifications. Mild ectasia of the ascending thoracic aorta, 3.9 cm. Right IJ Njuouc-q-Nsky catheter in the distal tip terminates within the mid SVC. Extensive pulmonary metastasis is redemonstrated, which has also progressed. This includes an index 2.1 cm right apical lesion on image 65, previously 1.2 cm. Intralobular septal t hickening. Layering ppggc-oe-ldvozkzq pleural effusions. Pleural thickening is noted, left greater than right with mild bibasilar consolidation. Central airways are patent. Extensive hepatic metastasis have also progressed. A 6.5 cm lesion within the right hepatic lobe, previously measured 6 cm on the 03/26/24 study. 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 Osteolytic destructive lesion at C7 with pathologic compression fracture. No definite retropulsion. Numerous osteolytic body lesions. There may be tumor involvement involving the left neural foramen at T11-T12. IMPRESSION: 1. Progressive metastasis includes worsening of the lymphatic, pulmonary, hepatic and osteolytic skeletal disease. 2. Increased size of the pleural effusions with probable pleural metastasis. 3. Intralobular septal thickening may represent a component of pulmonary edema. 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 4. Bony destruction/pathologic fracturing involves several bilateral ribs and also the C7 vertebral body without retropulsion. ACT 112: Negative or not required by law. Dictated: 04/28/2024 4:15 PM Transcribed: 04/28/2024 4:38 PM Johnny [id number] [email or web address] Electronically signed by: Narendra Mckee M.D. 04/28/2024 5:06 PM Venous Doppler Study 04/28/24 15:07 BILATERAL LOWER EXTREMITY VENOUS DOPPLER HISTORY: Acute pain and swelling of the lower legs BLE edema COMPARISON STUDY: None. FINDINGS: There is normal compressibility, flow, and augmentation within the bilateral lower extremity deep venous systems. IMPRESSION: No DVT within the right or left lower extremity. ACT 112: Negative or not required by law. Electronically signed by: Narendra Mckee M.D. 04/28/2024 4:26 PM Pulmonary Perfusion Imaging 04/29/24 17:59 NM pul perfusion CLINICAL HISTORY: Redness of breath.. COMPARISON STUDY: Chest CT 04/28/2024. TECHNIQUE: Immediately following intravenous administration of 5.6 mCi of technetium 99 M MAA for the perfusion scan, anterior, oblique, lateral, and posterior views of the chest were obtained. FINDINGS: Scattered small perfusion defects seen throughout the lungs likely corresponds the patient's known pulmonary metastases. Blunting of the costophrenic sulci consistent with the patient's small bilateral pleural effusions. No large defects identified. IMPRESSION: Scattered small perfusion defects within the lungs likely corresponds the patient's known pulmonary metastases. Therefore, this is consistent with a low probability scan. ACT 112: Negative or not required by law. Electronically signed by: Troy Livingston M.D. 04/29/2024 10:36 AM PG Care Time/CCT Total # of Minutes Spent Total Time Spent with Patient: Total time spent is greater than 50% in coordination of care (as documented) at patient's floor/unit and/or counseling patient: I spent 125 minutes overall addressing this complex case: 20 min in medical data review/discussion with referring provider(s) and/or preparation for the visit incl OSH data 15 min in direct interaction with the patient/exam 60 min in Advance Care Planning/Goals of Care discussions as detailed above in note (must be >16min) 15 min in subsequent review and synthesis of assessment and plan 15 min communicating with other providers regarding the patient's case: nursing, primary team, oncology Advanced Care Planning 81370 Advanced Care Planning 30 Min 67845 Advanced Care Planning Additional 30 [place] [address] IN/OBS CONSULT LVL 4,60M (25 - SIGNIFICANT, SEPARATELY IDENTIFIABLE ) Patient Type New Medical Decision Making High Complexity Diagnoses Cancer related pain G89.3 Weakness generalized R53.1 Advanced care planning/counseling discussion Z71.89 Encounter for hospice care discussion Z71.89 Palliative care by specialist Z51.5 Additional Codes Advanced Care Planning - 26564 Advanced Care Planning 30 Min: 31016 Advanced Care Planning 30 Min ([id number]) Advanced Care Planning - 77558 Advanced Care Planning Additional 30 Min: 19906 Advanced Care Planning Additional 30 Min ([id number])
--- NOTE | 2024-04-29 12:51 | Electrocardiogram Report ---
Test Reason : Blood Pressure : */* mmHG Vent. Rate : 89 BPM Atrial Rate : 89 BPM P-R Int : 126 ms QRS Dur : 76 ms QT Int : 376 ms P-R-T Axes : 46 6 10 degrees QTcB Int : 457 ms Normal sinus rhythm Low voltage QRS Nonspecific T wave abnormality Abnormal ECG When compared with ECG of 28-Apr-2024 09:24, No significant change was found Confirmed by Jeffrey Elliott ([id number]) on 04/29/2024 12:50:39 PM Referred By: REFERRED SELF Confirmed By: Jeffrey Elliott
[2024-04-29 15:18] LABS: Creatinine Clr Calc Pharmacy 38.6 ml/min; Est GFR (African American) 59.5 ml/min; Est GFR (Non-African American) 51.3 ml/min; Potassium 5.3 mmol/L (3.5-5.1)
--- NOTE | 2024-04-29 16:10 | Hospitalist Progress Note ---
Date of Service April 29, 2024 Assessment & Plan (1) SOB (shortness of breath): (2) Transitional cell carcinoma: (3) BPH (benign prostatic hyperplasia): Plan This is a 79-year-old male with PMH of High-grade renal pelvis urothelial carcinoma with metastasis to lung (on Sacituzumab govitecan- held for last 3 weeks), chronic back pain, BPH, hypertension, vascular disease, liver and show pharyngeal reflux disease and other medical problems listed below presents from home with worsening shortness of breath. CT chest results discussed with Dr. Perez, who recommends palliative care consult and IV decadron 4mg BID. VQ scan ordered to rule out PE. Patient updated on plan this evening. Metastatic disease Metastatic pleural effusions Transient hypoxia, pleuritic chest pain likely due to above H/O high-grade urothelial carcinoma with metastasis to lung, liver, bone --Chest CT:Progressive metastasis includes worsening of the lymphatic, pulmonary, hepatic and osteolytic skeletal disease. Increased size of the pleural effusions with probable pleural metastasis. Intralobular septal thickening may represent a component of pulmonary edema. 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 Bony destruction/pathologic fracturing involves several bilateral ribs and also the C7 vertebral body without retropulsion. --CT ABD from 03/26/24:Findings consistent with worsening metastatic disease with interval increase in innumerable intrahepatic hypodensities. Innumerable pulmonary metastatic lesions. Left pleural effusion stable when compared to prior exam. Periaortic lymphadenopathy also noted. --Venous Doppler:No DVT within the right or left lower extremity. --V/Q Scan: Scattered small perfusion defects within the lungs likely corresponds the patient's known pulmonary metastases. Therefore, this is consistent with a low probability scan. -- Started on IV Decadron as recommended by Dr. Perez -- Appreciate palliative care input Pain control Consulted on [facility] oncology for second opinion as requested Supplemental oxygen as needed Bowel regimen to prevent constipation Nebs PRN Hyperkalemia Will give IV calcium gluconate Monitor potassium levels closely Low potassium diet Will consider further management if potassium levels continue to rise H/O Metastatic urothelial carcinoma with mets to R lung, s/p nephrectomy Follows with Dr. Perez - Had a follow-up CT scan done on 08/31/2023 that unfortunately showed disease progression with worsening nodular density left nephrectomy bed as well as metastases with indeterminate right lung nodule. Chemo treatment has been on hold for the last 3 weeks because of the deteriorating of his general condition and performance status Per oncology outpatient record: Patient was informed poor prognosis and incurable Following with [facility] palliative service, has discussed hospice and not interested at this time Continue gabapentin, Megace, PRN tylenol Consulted [facility] oncology for second opinion as requested by family BPH Continue Flomax HS DVT Px: SQ heparin Code status: DNR/DNI Admission and Anticipated Discharge Date Admission Date: April 28, 2024 Subjective Patient is seen and examined at bedside States having nausea associated with abdominal, back pain Also reports dyspnea Intermittently requiring minimal supplemental oxygen to maintain saturations Discussed with palliative care today " I understand that my disease is terminal and incurable" Review of Systems Review of Systems: All systems reviewed & are unremarkable except as noted in Subjective Physical Exam Physical Exam: Physical Exam: Vitals signs as noted above General Appearance: Thin, frail, ill-appearing, no apparent distress Head: normocephalic, Atraumatic Eyes: normal inspection, EOMI Neck: supple, Trachea midline Respiratory/Chest: Decreased breath sounds, CTA, No accessory muscle use Cardiovascular: S1, S2, No murmur Abdomen/GI:Soft, Non tender, Bowel sounds present Extremities/Musculoskeletal:normal inspection, trace edema Neurologic/Psych:AAOX3, grossly no focal neurological deficits Skin: normal color, warm Results & Data Results & Data Vital Signs (Past 12 Hours) Vital Signs Temp Pulse Resp BP Pulse Ox O2 Del Method O2 Flow Rate 04/29/24 15:40 36.5 C 85 18 113/74 91 Room Air 04/29/24 11:17 36.6 C 85 20 159/90 H 96 Nasal Cannula 2 04/29/24 10:00 Nasal Cannula 2 04/29/24 08:01 36.7 C 59 L 20 147/81 H 100 Nasal Cannula 2 Laboratory Results Short CBC 04/29/24 Range/Units 06:37 WBC 10.05 (4.8-10.8) K/ul Hgb 12.3 L (14.0-18.0) g/dl Hct 38.2 L (42.0-52.0) % Plt Count 341 (130-400) K/uL BMP 04/29/24 04/29/24 06:37 14:32 Sodium 136 135 L Potassium 5.3 H 5.3 H Chloride 103 101 Carbon Dioxide 24 24 BUN 31 H 37 H Creatinine 1.19 1.32 Glucose 77 122 H Calcium 9.5 10.0
--- NOTE | 2024-04-29 17:35 | Oncology Consultation ---
Date of Consultation April 29, 2024 Assessment & Plan (1) Urothelial cancer: (2) Congestive heart failure: Plan -Patient with widely metastatic urothelial carcinoma. Explained to patient and family that he has a very aggressive malignancy with widely metastatic disease. Based on this, prognosis is very poor and consideration for hospice is very reasonable. Patient however interested in discussing further treatment options. Since it appears that he only received 2 cycles of pembrolizumab, explained to them that he may not have received enough to see a response. Since standard of care is combination of pembrolizumab plus enfortumab vedotin, this would be an option for treatment in this case. Following extensive discussion, patient indicated that he would like a trial of Enfortumab plus pembrolizumab. He is aware that treatment might make clinical condition worse but wants to receive treatment. I will plan to see him outpatient to start treatment as soon after he is discharged from hospital. History of Present Illness Reason for Consultation: Metastatic urothelial carcinoma Attending Physician: Reinaldo Wheatley MD History of Present Illness 79-year-old gentleman with history of metastatic urothelial carcinoma most recently on Trodelvy being followed by Dr. Perez. Patient was admitted to [facility] with worsening shortness of breath. 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 Bilateral lower extremity venous ultrasound negative for DVTs. VQ scan revealed scattered small perfusion defects within the lungs likely corresponding to patient's known pulmonary metastasis. Per patient's , he had previously been on pembrolizumab but progressed after about 2 doses after which he was switched to Trodelvy. Has had several treatment interruptions due to poor performance status. Allergies Allergy/AdvReac Type Severity Reaction Status Date / Time lisinopril Allergy Severe LIP EDEMA Verified 11/28/23 19:39 Home Medications Medication Instructions Recorded Confirmed Type gabapentin 600 mg tablet 600 mg PO BID 11/19/23 04/28/24 History lidocaine 5 % topical patch 1 patch topical DAILY PRN Pain 11/19/23 04/28/24 History lidocaine-prilocaine 2.5 %-2.5 % 1 applic topical DIRECTED PRN 1 11/19/23 04/28/24 History topical cream HR PRIOR TO MEDIPORT ACCESS ondansetron HCl 8 mg tablet 8 mg PO Q8H PRN NAUSEA/VOMITING 11/19/23 04/28/24 History tramadol 50 mg tablet 50 mg PO Q8H PRN Pain 11/19/23 04/28/24 History megestrol 625 mg/5 mL (125 mg/mL) 5 ml PO DAILY 04/28/24 04/28/24 History oral suspension tamsulosin 0.4 mg capsule 0.4 mg PO HS 04/28/24 04/28/24 History Patient History Medical History (Updated 04/29/24 @ 17:47 by Li May MD) BPH (benign prostatic hyperplasia) Pleural effusion Hypercholesteremia Peripheral arterial disease Transitional cell carcinoma Surgical History (Updated 04/28/24 @ 15:02 by Mayela Fu PA-C) S/P angioplasty with stent S/P lumbar spinal fusion History of appendectomy History of nephroureterectomy left Family History Other Heart disease Social History Smoking Status: Never smoker Second Hand Exposure: No; Do You Dip or Chew Tobacco: No; Tobacco Cessation Education Requested by Patient: No Hx Alcohol Use: No Hx Substance Use: No Preferred Language: Estonian Communication Ability: Effective 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 Required: No Beliefs That Will Affect Care: None Current Living Situation: Spouse Current Living Situation Comment: house Other Information That Helps Us Care for You: No Feels Safe at Home: Yes Safety Concerns: Feels Safe At This Time Assistive Devices: Cane and Scooter/Electric Scooter Assistive Devices Comment: cane at home, electric wheel chair when out of the home Results & Data Vital Signs (Past 12 Hours) Vital Signs Temp Pulse Resp BP Pulse Ox O2 Del Method O2 Flow Rate 04/29/24 15:40 36.5 C 85 18 113/74 91 Room Air 04/29/24 11:17 36.6 C 85 20 159/90 H 96 Nasal Cannula 2 04/29/24 10:00 Nasal Cannula 2 04/29/24 08:01 36.7 C 59 L 20 147/81 H 100 Nasal Cannula 2
[2024-04-29] MEDS: CALCIUM GLUCONATE 1,000 MG/60 ML BAG IV ONE (17:55)
[2024-04-30 06:37] LABS: Hematocrit (blood only) 38.8 % (42.0-52.0); Hemoglobin 12.3 g/dl (14.0-18.0); Mean Corpuscular Hemoglobin 28.1 pg (25.0-34.0); Mean Corpuscular Hgb Conc 31.7 g/dL (32.0-36.0); Mean Corpuscular Volume 88.6 fL (80.0-100.0); Mean Platelet Volume 10.5 fL (9.4-12.4); Platelet Count 341 K/uL (130-400); RDW Coefficient of Variation 16.5 % (11.5-14.5); RDW Standard Deviation 53.7 fL (36.4-46.3); Red Blood Count 4.38 M/uL (4.70-6.10); White Blood Count 18.04 K/ul (4.8-10.8)
[2024-04-30 07:03] LABS: BUN Creatinine Ratio 29.6 (10-20); Calcium 9.3 mg/dl (8.6-10.3); Creatinine Clr Calc Pharmacy 40.8 ml/min; Est GFR (African American) 63.5 ml/min; Est GFR (Non-African American) 54.8 ml/min; Potassium 5.2 mmol/L (3.5-5.1)
--- NOTE | 2024-04-30 09:20 | Electrocardiogram Report ---
Test Reason : Blood Pressure : */* mmHG Vent. Rate : 86 BPM Atrial Rate : 86 BPM P-R Int : 128 ms QRS Dur : 78 ms QT Int : 328 ms P-R-T Axes : 50 11 16 degrees QTcB Int : 392 ms Normal sinus rhythm Low voltage QRS Nonspecific T wave abnormality Abnormal ECG When compared with ECG of 28-Apr-2024 17:47, QT has shortened Confirmed by Jeffrey Elliott ([id number]) on 04/30/2024 9:20:40 AM Referred By: REFERRED SELF Confirmed By: Jeffrey Elliott
[2024-04-30] MEDS: SENNA 8.6 MG TAB PO SCH (10:23)
[2024-04-30] MEDS: DOCUSATE SODIUM 100 MG CAP PO SCH (10:24)
--- NOTE | 2024-04-30 17:03 | Hospitalist Progress Note ---
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 Metastatic disease Metastatic pleural effusions Transient hypoxia, pleuritic chest pain likely due to above H/O high-grade urothelial carcinoma with metastasis to lung, liver, bone --Chest CT:Progressive metastasis includes worsening of the lymphatic, pulmonary, hepatic and osteolytic skeletal disease. Increased size of the pleural effusions with probable pleural metastasis. Intralobular septal thickening may represent a component of pulmonary edema. 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 Bony destruction/pathologic fracturing involves several bilateral ribs and also the C7 vertebral body without retropulsion. --CT ABD from 03/26/24:Findings consistent with worsening metastatic disease with interval increase in innumerable intrahepatic hypodensities. Innumerable pulmonary metastatic lesions. Left pleural effusion stable when compared to prior exam. Periaortic lymphadenopathy also noted. --Venous Doppler:No DVT within the right or left lower extremity. --V/Q Scan: Scattered small perfusion defects within the lungs likely corresponds the patient's known pulmonary metastases. Therefore, this is consistent with a low probability scan. -- Started on IV Decadron as recommended by oncology -- Appreciate palliative care consult Pain control Consulted [facility] oncology for second opinion as requested. Recommendations noted Supplemental oxygen as needed Bowel regimen to prevent constipation Nebs PRN Hyperkalemia Status post IV calcium gluconate Monitor potassium levels closely slight improvement today Low potassium diet Will consider further management if potassium levels continue to rise H/O Metastatic urothelial carcinoma with mets to R lung, s/p nephrectomy Follows with Dr. Perez - Had a follow-up CT scan done on 08/31/2023 that unfortunately showed disease progression with worsening nodular density left nephrectomy bed as well as metastases with indeterminate right lung nodule. Wants to follow now with Li May MD Chemo treatment has been on hold for the last 3 weeks because of the deteriorating of his general condition and performance status Per oncology outpatient record: Patient was informed poor prognosis and incurable Following with [facility] palliative service, hospice was discussed again. The family is leaning more towards home with hospice and if he improves following up before additional chemotherapy. Continue gabapentin, Megace, PRN tylenol BPH Continue Flomax HS DVT Px: SQ heparin Code status: DNR/DNI Total of 57 minutes spent in review of records, imaging, lab studies and counseling with patient, family and care coordination Admission and Anticipated Discharge Date Admission Date: April 28, 2024 Subjective Patient is seen and examined at bedside. He is very somnolent. His daughter is present States still having nausea associated with abdominal, back pain Shortness of breath and dyspnea persist He denies chest pain He has constipation Requiring minimal supplemental oxygen to maintain saturations Discussed case with palliative care today Physical Exam Physical Exam: General-elderly, cachectic, severely malnourished male seen lying in bed Head- atraumatic Eyes- PERRL, EOMI, anicteric ENT- oropharynx clear Neck- supple, no JVD, no adenopathy, no thyromegaly; carotids +2/2, no bruits appreciated Lungs- clear to auscultation and percussion Heart- regular rhythm; no murmur, no gallop, no rub appreciated Abdomen- normal bowel sounds, soft, nontender, no masses or hepatosplenomegaly Extremities- no pretibial edema, no calf tenderness; peripheral pulses intact Neuro- alert, oriented x 3; Skin- warm & dry Results & Data Results & Data Vital Signs (Past 12 Hours) Vital Signs Temp Pulse Resp BP BP Pulse Ox O2 Del Method 04/30/24 15:11 36.3 C L 71 18 128/82 94 Nasal Cannula 04/30/24 14:37 93 04/30/24 11:24 36.3 C L 75 18 121/79 94 Nasal Cannula 04/30/24 08:51 Nasal Cannula 04/30/24 07:21 36.6 C 90 18 153/90 H 96 Nasal Cannula O2 Flow Rate 04/30/24 15:11 2.5 04/30/24 14:37 04/30/24 11:24 2 04/30/24 08:51 2 04/30/24 07:21 2 Laboratory Results Laboratory Results WBC 18.04 K/ul (4.8-10.8) H 04/30/24 05:42 RBC 4.38 M/uL (4.70-6.10) L 04/30/24 05:42 Hgb 12.3 g/dl (14.0-18.0) L 04/30/24 05:42 Hct 38.8 % (42.0-52.0) L 04/30/24 05:42 MCV 88.6 fL (80.0-100.0) 04/30/24 05:42 MCH 28.1 pg (25.0-34.0) 04/30/24 05:42 MCHC 31.7 g/dL (32.0-36.0) L 04/30/24 05:42 RDW Std Deviation 53.7 fL (36.4-46.3) H 04/30/24 05:42 RDW Coeff of Karlene 16.5 % (11.5-14.5) H 04/30/24 05:42 Plt Count 341 K/uL (130-400) 04/30/24 05:42 MPV 10.5 fL (9.4-12.4) 04/30/24 05:42 Immature Gran % (Auto) 0.8 % 04/28/24 10:14 Neut % (Auto) 80.1 % 04/28/24 10:14 Lymph % (Auto) 7.6 % 04/28/24 10:14 [place] % (Auto) 10.0 % 04/28/24 10:14 Eos % (Auto) 1.1 % 04/28/24 10:14 Baso % (Auto) 0.4 % 04/28/24 10:14 Neut # (Auto) 10.61 K/uL (1.40-6.50) H 04/28/24 10:14 Lymph # (Auto) 1.00 K/uL (1.20-3.40) L 04/28/24 10:14 [place] # (Auto) 1.33 K/uL (0.11-0.59) H 04/28/24 10:14 Eos # (Auto) 0.14 K/uL (0.00-0.50) 04/28/24 10:14 Baso # (Auto) 0.05 K/uL (0.00-0.20) 04/28/24 10:14 Immature Gran # (Auto) 0.11 K/uL (0.01-0.20) 04/28/24 10:14 Sodium 135 mmol/L (136-145) L 04/30/24 05:42 Potassium 5.2 mmol/L (3.5-5.1) H 04/30/24 05:42 Chloride 101 mmol/L (98-107) 04/30/24 05:42 Carbon Dioxide 27 mmol/L (21-32) 04/30/24 05:42 Anion Gap 7 (3-11) 04/30/24 05:42 BUN 37 mg/dl (6-23) H 04/30/24 05:42 Creatinine 1.25 mg/dl (0.6-1.4) 04/30/24 05:42 Est Cr Clr Drug Dosing 40.8 ml/min 04/30/24 05:42 Est GFR ( Amer) 63.5 ml/min 04/30/24 05:42 Est GFR (Non-Af Amer) 54.8 ml/min 04/30/24 05:42 BUN/Creatinine Ratio 29.6 (10-20) H 04/30/24 05:42 Glucose 115 mg/dl (70-99(Fasting)) H 04/30/24 05:42 Calcium 9.3 mg/dl (8.6-10.3) 04/30/24 05:42 Magnesium 2.0 mg/dl (1.7-2.4) 04/30/24 05:42 Total Bilirubin 0.7 mg/dl (0.2-1.0) 04/28/24 10:14 AST 37 U/L (13-39) 04/28/24 10:14 ALT 17 U/L (7-52) 04/28/24 10:14 Alkaline Phosphatase 335 U/L (34-104) H 04/28/24 10:14 Troponin I High Sens 13.8 pg/ml (0-20) 04/28/24 22:41 B-Natriuretic Peptide 210 pg/ml (0-100) H 04/28/24 10:14 Total Protein 6.2 gm/dl (6.0-8.3) 04/28/24 10:14 Albumin 3.2 gm/dl (3.4-5.0) L 04/28/24 10:14 Globulin 3.0 gm/dl (2.5-4.0) 04/28/24 10:14 Albumin/Globulin Ratio 1.1 (0.9-2) 04/28/24 10:14 Urine Color Yellow 04/28/24 10:22 Urine Appearance Clear (Clear) 04/28/24 10:22 Urine pH 6.5 (4.5-7.5) 04/28/24 10:22 Ur Specific Standard 1.017 (1.000-1.030) 04/28/24 10:22 Urine Protein Negative (Negative) 04/28/24 10:22 Urine Glucose (UA) Negative (Negative) 04/28/24 10:22 Urine Ketones 1+ (Negative) H 04/28/24 10:22 Urine Blood Negative (Negative) 04/28/24 10:22 Urine Nitrite Negative (Negative) 04/28/24 10:22 Urine Bilirubin Negative (Negative) 04/28/24 10:22 Urine Urobilinogen Negative (Negative) 04/28/24 10:22 Ur Leukocyte Esterase Negative (Negative) 04/28/24 10:22 Adenovirus (PCR) Not Detected (NotDetected) 04/28/24 10:22 B. pertussis DNA (PCR) Not Detected (NotDetected) 04/28/24 10:22 B.parapertussis DNA PCR Not Detected (NotDetected) 04/28/24 10:22 C. pneumoniae DNA (PCR) Not Detected (NotDetected) 04/28/24 10:22 Coronavirus OC43 (PCR) Not Detected (NotDetected) 04/28/24 10:22 Coronavirus HKU1 (PCR) Not Detected (NotDetected) 04/28/24 10:22 Coronavirus 229E (PCR) Not Detected (NotDetected) 04/28/24 10:22 SARS-CoV-2 (PCR) Not Detected (NotDetected) 04/28/24 10:22 Coronavirus NL63 (PCR) Not Detected (NotDetected) 04/28/24 10:22 Human Metapneumovir PCR Not Detected (NotDetected) 04/28/24 10:22 Influenza Type A (PCR) Not Detected (NotDetected) 04/28/24 10:22 Influenza Type B (PCR) Not Detected (NotDetected) 04/28/24 10:22 M. pneumoniae (PCR) Not Detected (NotDetected) 04/28/24 10:22 Parainfluenza 1 (PCR) Not Detected (NotDetected) 04/28/24 10:22 Parainfluenza 2 (PCR) Not Detected (NotDetected) 04/28/24 10:22 Parainfluenza 3 (PCR) Not Detected (NotDetected) 04/28/24 10:22 Parainfluenza 4 (PCR) Not Detected (NotDetected) 04/28/24 10:22 RSV (PCR) Not Detected (NotDetected) 04/28/24 10:22 Entero/Rhino (PCR) Not Detected (NotDetected) 04/28/24 10:22 Impressions Chest X-Ray 04/28/24 09:24 XR chest 1V portable HISTORY: 79 years-old Male Dyspnea COMPARISON: 03/26/2024 TECHNIQUE: AP view of the chest FINDINGS: Cardiac mediastinal and hilar silhouettes are unchanged. Right IJ Qxzoud-i-Eavz catheter is in stable positioning. Unchanged left greater than right pleural effusion with left basilar predominant consolidation. 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 No pneumothorax or pulmonary edema. Bones appear grossly intact. IMPRESSION: 1. Left greater right pleural effusions with left basilar consolidation again noted. 2. Multifocal pulmonary metastasis redemonstrated. ACT 112: Negative or not required by law. The above report was generated using voice recognition software. It may contain grammatical, syntax or spelling errors. Electronically signed by: Narendra Mckee M.D. 04/28/2024 11:[address] 04/28/24 15:05 CT chest diagnostic wo con CT DOSE: 269.24 mGy.cm CLINICAL HISTORY: 79 years-old Male with SOB, h/o met cancer to lung. Acute shortness of breath. TECHNIQUE: Multiaxial CT images of the chest were performed without contrast. A dose lowering technique was utilized adhering to the principles of ALARA. COMPARISON: Chest CT 11/28/2023, CT abdomen and pelvis 03/26/2024. FINDINGS: No thyroid nodule. Limited study without the use of IV contrast. Progressive lymphadenopathy includes an index 1.7 x 1.6 cm right paratracheal lymph node on image 94 series 4, previously 1.2 x 1.1 cm. The lymph nodes within the posterior mediastinum adjacent to the esophagus have also increased in size. Trace pericardial effusion. Extensive coronary artery calcifications. Mild ectasia of the ascending thoracic aorta, 3.9 cm. Right IJ Vshsem-r-Wkko catheter in the distal tip terminates within the mid SVC. Extensive pulmonary metastasis is redemonstrated, which has also progressed. This includes an index 2.1 cm right apical lesion on image 65, previously 1.2 cm. Intralobular septal thickening. Layering rsffi-ko-bfaisepl pleural effusions. Pleural thickening is noted, left greater than right with mild bibasilar consolidation. Central airways are patent. Extensive hepatic metastasis have also progressed. A 6.5 cm lesion within the right hepatic lobe, previously measured 6 cm on the 03/26/24 study. 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 Osteolytic destructive lesion at C7 with pathologic compression fracture. No definite retropulsion. Numerous osteolytic body lesions. There may be tumor involvement involving the left neural foramen at T11-T12. IMPRESSION: 1. Progressive metastasis includes worsening of the lymphatic, pulmonary, hepatic and osteolytic skeletal disease. 2. Increased size of the pleural effusions with probable pleural metastasis. 3. Intralobular septal thickening may represent a component of pulmonary edema. 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 4. Bony destruction/pathologic fracturing involves several bilateral ribs and also the C7 vertebral body without retropulsion. ACT 112: Negative or not required by law. Dictated: 04/28/2024 4:15 PM Transcribed: 04/28/2024 4:38 PM Johnny [id number] [email or web address] Electronically signed by: Narendra Mckee M.D. 04/28/2024 5:06 PM Venous Doppler Study 04/28/24 15:07 BILATERAL LOWER EXTREMITY VENOUS DOPPLER HISTORY: Acute pain and swelling of the lower legs BLE edema COMPARISON STUDY: None. FINDINGS: There is normal compressibility, flow, and augmentation within the bilateral lower extremity deep venous systems. IMPRESSION: No DVT within the right or left lower extremity. ACT 112: Negative or not required by law. Electronically signed by: Narendra Mckee M.D. 04/28/2024 4:26 PM Pulmonary Perfusion Imaging 04/29/24 17:59 NM pul perfusion CLINICAL HISTORY: Redness of breath.. COMPARISON STUDY: Chest CT 04/28/2024. TECHNIQUE: Immediately following intravenous administration of 5.6 mCi of technetium 99 M MAA for the perfusion scan, anterior, oblique, lateral, and posterior views of the chest were obtained. FINDINGS: Scattered small perfusion defects seen throughout the lungs likely corresponds the patient's known pulmonary metastases. Blunting of the costophrenic sulci consistent with the patient's small bilateral pleural effusions. No large defects identified. IMPRESSION: Scattered small perfusion defects within the lungs likely corre sponds the patient's known pulmonary metastases. Therefore, this is consistent with a low probability scan. ACT 112: Negative or not required by law. Electronically signed by: Troy Livingston M.D. 04/29/2024 10:36 AM Medications Administered Current Inpatient Medications Acetaminophen (Acetaminophen 500 Mg Tab) 1,000 mg PO Q8H FELISHA Stop: 05/28/24 17:29 Last Admin: 04/30/24 16:40 Dose: 1,000 mg Albuterol (Albut/Ipratrop 3mg/0.5mg Neb 3 Ml Vial) 3 ml NEB Q6R PRN; Protocol PRN Reason: sob or wheezing Stop: 05/28/24 17:11 Docusate Sodium (Docusate Sodium 100 Mg Cap) 100 mg PO BID FELISHA Stop: 05/30/24 08:59 Last Admin: 04/30/24 10:24 Dose: 100 mg Gabapentin (Gabapentin 600 Mg Tab) 600 mg PO BID FELISHA Stop: 05/28/24 20:59 Last Admin: 04/30/24 09:06 Dose: 600 mg Heparin Sodium (Porcine) (Heparin Sod 5,000 Unit/0.5 Ml Vial) 5,000 units SQ Q8 FELISHA Stop: 05/28/24 21:59 Last Admin: 04/30/24 13:30 Dose: 5,000 units Heparin Sodium (Porcine) (Heparin 100 Unit/Ml 5ml Flush) 5 ml FLUSH PRN PRN PRN Reason: Flush Stop: 05/28/24 17:11 Last Admin: 04/30/24 11:43 Dose: 5 ml Hydromorphone HCl (Hydromorphone Inj 0.5 Mg/0.5 Ml Syr) 0.5 mg IV Q6H PRN PRN Reason: Mod-Sev Pain (Scale 4-10) Stop: 05/13/24 11:05 Last Admin: 04/30/24 09:06 Dose: 0.5 mg Dexamethasone 4 mg/ Syringe 1 mls @ 1 mls/min IV BID [facility] Stop: 05/28/24 20:59 Last Admin: 04/30/24 09:08 Dose: 1 mls/min Megestrol Acetate (Megestrol Acetate Susp 400 Mg/10 Ml Udc) 625 mg PO DAILY [facility] Stop: 05/29/24 08:59 Last Admin: 04/30/24 09:05 Dose: 625 mg Miscellaneous (Remove Lidoderm Patch) 1 each N/A DAILY@2100 [facility] Stop: 05/28/24 20:59 Last Admin: 04/29/24 20:18 Dose: 1 each Ondansetron HCl (Ondansetron Inj 2 Mg/Ml 2 Ml Vial) 4 mg IV Q6H PRN PRN Reason: Nausea Stop: 05/28/24 17:11 Last Admin: 04/29/24 08:34 Dose: 4 mg Oxycodone HCl (Oxycodone Hcl Ir 5 Mg Tab (Immediate Release)) 5 mg PO Q6H PRN PRN Reason: Severe Pain (Scale 7, 8, 9,10) Stop: 05/12/24 17:22 Last Admin: 04/30/24 12:55 Dose: 5 mg Polyethylene Glycol (Polyethylene (Miralax) 17 Gm Pack) 17 gm PO DAILY PRN PRN Reason: Constipation Stop: 05/28/24 17:11 Last Admin: 04/29/24 08:46 Dose: 17 gm Sennosides (Senna 8.6 Mg Tab) 17.2 mg PO QAM [facility] Stop: 05/30/24 08:59 Last Admin: 04/30/24 10:23 Dose: 17.2 mg Tamsulosin HCl (Tamsulosin Hcl 0.4 Mg Cap) 0.4 mg PO HS [facility] Stop: 05/28/24 20:59 Last Admin: 04/29/24 20:18 Dose: 0.4 mg Tramadol HCl (Tramadol Hcl 50 Mg Tablet) 50 mg PO Q8H PRN PRN Reason: Moderate Pain (Scale 4, 5, 6) Stop: 05/28/24 17:11 Last Admin: 04/30/24 10:26 Dose: 50 mg
--- NOTE | 2024-04-30 18:46 | Palliative Care Progress Note ---
Date of Service April 30, 2024 Assessment & Plan (1) Cancer related pain: (2) Weakness generalized: (3) Advanced care planning/counseling discussion: Plan: ACP meeting with pt, and dtr at bedside for 45min face to face He is intermittently sleeping We reviewed the second opinion onc eval: Dr May suggested immune therapy and low/mild chemo if he gets stronger. He was very opposed to hospice yesterday but was in favor. Today, tells me that after more discussion with her neighbor who was once a hospice nurse as well as his other providers, they would like hospice but if he gets better they want to try more chemo. I reviewed with them his PS seems to be declining, so likelihood of signif improvement may be lower than we hope. He declines rehab, SNF or acute rehab. They only want to consider home options. states he is fully 100% service connected with [facility] d[facility]t [employer]. As such, he may be eligible for the [facility]'s Concurrent Care benefit if it is available in his region. Concurrent Care allows veterans to receive active cancer tx alongside hospice care so that they have the maximal services for both at home care as well as medical care for cancer tx. I suggested he go home with hospice for now as it will help them have the highest level of in home support and IF he declines (which I told them I am worried will be the case_ then he is already on the right level of care for his needs. If he gets stronger even on hospice, then he can revoke hospice and come to see Dr. May. They are in agreement with the above recc today. No hospice agency preference but said their neighbor was a hospice nurse and now works here in wound care. She wants to speak with neighbor to ask if there is an agency neighbor highly recommend. I asked her to please update care mgt tomorrow afternoon when she arrives with her hospice agency choice. (4) Encounter for hospice care discussion: Plan: rediscussed hospice in detail incl parameters and boundaries of the medicare hospice benefit, as was very confused and perceived "our regular insurance can cover the tests, scans and his appointments with his other doctors." (5) Palliative care by specialist: Plan As above Thank you for allowing us to participate in the ongoing care of this patient. Please page with any additional concerns. Sophie Chavis DNP Director, Palliative Medicine Admission and Anticipated Discharge Date Admission Date: April 28, 2024 Subjective Drew is resting in bed. and dtr at bedside He is weaker today and sleeping more per They share they have been speaking about options He is feeling some relief with pain meds but the fatigue is ongoing Appetite poor reiterates wanting to be home Review of Systems Review of Systems: All systems reviewed & are unremarkable except as noted in Subjective Physical Exam Physical Exam: Frail, cachectic, tired appearing bitemp wasting perrla MM dry dentition intact neck supple, no stridor resp effort WNL at rest no rhonchi, wheeze, few rales right mid to lower quad abd pain to palpation BS + gen weakness intermittent lethargy skin pale, scatt ecchymoses Results & Data Vital Signs (Past 12 Hours) Vital Signs Temp Pulse Resp BP BP Pulse Ox O2 Del Method 04/30/24 15:11 36.3 C L 71 18 128/82 94 Nasal Cannula 04/30/24 14:37 93 04/30/24 11:24 36.3 C L 75 18 121/79 94 Nasal Cannula 04/30/24 08:51 Nasal Cannula 04/30/24 07:21 36.6 C 90 18 153/90 H 96 Nasal Cannula O2 Flow Rate 04/30/24 15:11 2.5 04/30/24 14:37 04/30/24 11:24 2 04/30/24 08:51 2 04/30/24 07:21 2 Laboratory Results Abnormal lab results 04/30/24 Range/Units 05:42 WBC 18.04 H (4.8-10.8) K/ul RBC 4.38 L (4.70-6.10) M/uL Hgb 12.3 L (14.0-18.0) g/dl Hct 38.8 L (42.0-52.0) % MCHC 31.7 L (32.0-36.0) g/dL RDW Std Deviation 53.7 H (36.4-46.3) fL RDW Coeff of Karlene 16.5 H (11.5-14.5) % Sodium 135 L (136-145) mmol/L Potassium 5.2 H (3.5-5.1) mmol/L BUN 37 H (6-23) mg/dl BUN/Creatinine Ratio 29.6 H (10-20) Glucose 115 H (70-99(Fasting)) mg/dl Diagnostic Findings Chest X-Ray 04/28/24 09:24 XR chest 1V portable HISTORY: 79 years-old Male Dyspnea COMPARISON: 03/26/2024 TECHNIQUE: AP view of the chest FINDINGS: Cardiac mediastinal and hilar silhouettes are unchanged. Right IJ Vhvdnh-y-Ilvd catheter is in stable positioning. Unchanged left greater than right pleural effusion with left basilar predominant consolidation. 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 No pneumothorax or pulmonary edema. Bones appear grossly intact. IMPRESSION: 1. Left greater right pleural effusions with left basilar consolidation again n oted. 2. Multifocal pulmonary metastasis redemonstrated. ACT 112: Negative or not required by law. The above report was generated using voice recognition software. It may contain grammatical, syntax or spelling errors. Electronically signed by: Narendra Mckee M.D. 04/28/2024 11:[address] 04/28/24 15:05 CT chest diagnostic wo con CT DOSE: 269.24 mGy.cm CLINICAL HISTORY: 79 years-old Male with SOB, h/o met cancer to lung. Acute shortness of breath. TECHNIQUE: Multiaxial CT images of the chest were performed without contrast. A dose lowering technique was utilized adhering to the principles of ALARA. COMPARISON: Chest CT 11/28/2023, CT abdomen and pelvis 03/26/2024. FINDINGS: No thyroid nodule. Limited study without the use of IV contrast. Progressive lymphadenopathy includes an index 1.7 x 1.6 cm right paratracheal lymph node on image 94 series 4, previously 1.2 x 1.1 cm. The lymph nodes within the posterior mediastinum adjacent to the esophagus have also increased in size. Trace pericardial effusion. Extensive coronary artery calcifications. Mild ectasia of the ascending thoracic aorta, 3.9 cm. Right IJ Aioxnb-i-Xnyk catheter in the distal tip terminates within the mid SVC. Extensive pulmonary metastasis is redemonstrated, which has also progressed. This includes an index 2.1 cm right apical lesion on image 65, previously 1.2 cm. Intralobular septal thickening. Layering vshgp-hz-ncidginh pleural effusions. Pleural thickening is noted, left greater than right with mild bibasilar consolidation. Central airways are patent. Extensive hepatic metastasis have also progressed. A 6.5 cm lesion within the right hepatic lobe, previously measured 6 cm on the 03/26/24 study. 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 Osteolytic destructive lesion at C7 with pathologic compression fracture. No definite retropulsion. Numerous osteolytic body lesions. There may be tumor involvement involving the left neural foramen at T11-T12. IMPRESSION: 1. Progressive metastasis includes worsening of the lymphatic, pulmonary, hepatic and osteolytic skeletal disease. 2. Increased size of the pleural effusions with probable pleural metastasis. 3. Intralobular septal thickening may represent a component of pulmonary edema. 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 4. Bony destruction/pathologic fracturing involves several bilateral ribs and also the C7 vertebral body without retropulsion. ACT 112: Negative or not required by law. Dictated: 04/28/2024 4:15 PM Transcribed: 04/28/2024 4:38 PM Johnny [id number] [email or web address] Electronically signed by: Narendra Mckee M.D. 04/28/2024 5:06 PM Venous Doppler Study 04/28/24 15:07 BILATERAL LOWER EXTREMITY VENOUS DOPPLER HISTORY: Acute pain and swelling of the lower legs BLE edema COMPARISON STUDY: None. FINDINGS: There is normal compressibility, flow, and augmentation within the bilateral lower extremity deep venous systems. IMPRESSION: No DVT within the right or left lower extremity. ACT 112: Negative or not required by law. Electronically signed by: Narendra Mckee M.D. 04/28/2024 4:26 PM Pulmonary Perfusion Imaging 04/29/24 17:59 NM pul perfusion CLINICAL HISTORY: Redness of breath.. COMPARISON STUDY: Chest CT 04/28/2024. TECHNIQUE: Immediately following intravenous administration of 5.6 mCi of technetium 99 M MAA for the perfusion scan, anterior, oblique, lateral, and posterior views of the chest were obtained. FINDINGS: Scattered small perfusion defects seen throughout the lungs likely corresponds the patient's known pulmonary metastases. Blunting of the costophrenic sulci consistent with the patient's small bilateral pleural effusions. No large defects identified. IMPRESSION: Scattered small perfusion defects within the lungs likely corresponds the patient's known pulmonary metastases. Therefore, this is consistent with a low probability scan. ACT 112: Negative or not required by law. Electronically signed by: Troy Livingston M.D. 04/29/2024 10:36 AM PG Care Time/CCT Total # of Minutes Spent Total Time Spent with Patient: Total time spent is greater than 50% in coordination of care (as documented) at patient's floor/unit and/or counseling patient: I spent 100 minutes overall addressing this case: 10 min in medical data review/discussion with referring provider(s) and/or preparation for the visit 10 min in direct interaction with the patient/exam 45 min in Advance Care Planning/Goals of Care discussions as det clarke above in note (must be >16min) 20 min in subsequent review and synthesis of assessment and plan 15 min communicating with other providers regarding the patient's case: primary team, oncology Advanced Care Planning 18070 Advanced Care Planning 30 Min [id number] Advanced Care Planning Additional 30 Min [place] [address] SUB INP/OBS CARE 3/50MIN (25 - SIGNIFICANT, SEPARATELY IDENTIFIABLE ) Patient Type Established Medical Decision Making High Complexity Diagnoses Cancer related pain G89.3 Weakness generalized R53.1 Advanced care planning/counseling discussion Z71.89 Encounter for hospice care discussion Z71.89 Palliative care by specialist Z51.5 Additional Codes Advanced Care Planning - 18037 Advanced Care Planning 30 Min: 53361 Advanced Care Planning 30 Min ([id number]) Advanced Care Planning - 10535 Advanced Care Planning Additional 30 Min: 72460 Advanced Care Planning Additional 30 Min ([id number])
--- NOTE | 2024-05-01 01:26 | Communication Note ---
Date of Service: May 01, 2024 "Px rolled out of bed onto the floor. unwitnessed. says he bumped the front of his head. no navarro to head. able to move all extremities." as per RN Small 1cm skin tear to left elbow with some bleeding as per RN. Hold heparin subcu for now.
[2024-05-01 07:58] LABS: Hematocrit (blood only) 38.1 % (42.0-52.0); Hemoglobin 12.5 g/dl (14.0-18.0); Mean Corpuscular Hemoglobin 28.5 pg (25.0-34.0); Mean Corpuscular Hgb Conc 32.8 g/dL (32.0-36.0); Mean Platelet Volume 10.4 fL (9.4-12.4); Platelet Count 344 K/uL (130-400); RDW Coefficient of Variation 16.4 % (11.5-14.5); RDW Standard Deviation 51.8 fL (36.4-46.3); Red Blood Count 4.38 M/uL (4.70-6.10); White Blood Count 19.88 K/ul (4.8-10.8)
[2024-05-01 08:13] LABS: BUN Creatinine Ratio 32.8 (10-20); Calcium 9.3 mg/dl (8.6-10.3); Creatinine Clr Calc Pharmacy 41.8 ml/min; Est GFR (African American) 65.4 ml/min; Est GFR (Non-African American) 56.4 ml/min
--- NOTE | 2024-05-01 16:00 | Hospitalist Progress Note ---
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 Metastatic disease Metastatic pleural effusions Transient hypoxia, pleuritic chest pain likely due to above H/O high-grade urothelial carcinoma with metastasis to lung, liver, bone --Chest CT:Progressive metastasis includes worsening of the lymphatic, pulmonary, hepatic and osteolytic skeletal disease. Increased size of the pleural effusions with probable pleural metastasis. Intralobular septal thickening may represent a component of pulmonary edema. 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 Bony destruction/pathologic fracturing involves several bilateral ribs and also the C7 vertebral body without retropulsion. --CT ABD from 03/26/24:Findings consistent with worsening metastatic disease with interval increase in innumerable intrahepatic hypodensities. Innumerable pulmonary metastatic lesions. Left pleural effusion stable when compared to prior exam. Periaortic lymphadenopathy also noted. --Venous Doppler:No DVT within the right or left lower extremity. --V/Q Scan: Scattered small perfusion defects within the lungs likely corresponds the patient's known pulmonary metastases. Therefore, this is consistent with a low probability scan. -- Started on IV Decadron as recommended by oncology -- Appreciate palliative care consult Pain control Consulted [facility] oncology for second opinion as requested. Recommendations noted Continue O2 Bowel regimen to prevent constipation Nebs PRN Hyperkalemia Status post IV calcium gluconate Monitor potassium levels closely slight improvement today Low potassium diet K+ normal today ---> 5.0 Leukocytosis probably from the steroid use. H/O Metastatic urothelial carcinoma with mets to R lung, s/p nephrectomy Follows with Dr. Perez - Had a follow-up CT scan done on 08/31/2023 that unfortunately showed disease progression with worsening nodular density left nephrectomy bed as well as metastases with indeterminate right lung nodule. Wants to follow now with Li May MD Chemo treatment has been on hold for the last 3 weeks because of the deteriorating of his general condition and performance status Per oncology outpatient record: Patient was informed poor prognosis and incurable Following with [facility] palliative [facility], hospice was discussed again. The family and pt have agreed for home with [facility] hospice services. They will pick him up tomorrow and supply all needed equipment tomorrow Continue gabapentin, Megace, PRN tylenol BPH Continue Flomax HS DVT Px: SQ heparin Code status: DNR/DNI Total of 53 minutes spent in review of records, imaging, lab studies and counseling with patient, family and care coordination Admission and Anticipated Discharge Date Admission Date: April 28, 2024 Subjective Pt seen at bedside. He is somnolent. is present He continues to decline Still has some pain He requires O2 09/04 now Discussed case with palliative medicine and case management. The patient and family have agreed to discharge home with home hospice He denies CP Nausea improved. No diarrhea Physical Exam Physical Exam: General-elderly, cachectic, severely malnourished male seen lying in bed Eyes- PERRL, EOMI, anicteric ENT- oropharynx clear Neck- supple, no JVD, no adenopathy, Lungs- clear to auscultation Heart- regular rhythm; no murmur, Abdomen- normal bowel sounds, soft, nontender, no masses or hepatosplenomegaly Extremities- 1 + pretibial edema, no calf tenderness; Neuro- alert, oriented x 3; weak, somnolent Skin- warm & dry Results & Data Results & Data Vital Signs (Past 12 Hours) Vital Signs Temp Pulse Pulse Resp BP Pulse Ox O2 Del Method 05/01/24 15:39 36.5 C 81 20 151/89 H 94 Nasal Cannula 05/01/24 14:05 71 05/01/24 11:17 36.6 C 69 20 134/85 94 Nasal Cannula 05/01/24 08:40 Nasal Cannula 05/01/24 07:29 36.4 C L 71 20 138/91 94 Nasal Cannula 05/01/24 07:20 67 O2 Flow Rate 05/01/24 15:39 2 05/01/24 14:05 05/01/24 11:17 2 05/01/24 08:40 2 05/01/24 07:29 2 05/01/24 07:20 Laboratory Results Laboratory Results WBC 19.88 K/ul (4.8-10.8) H 05/01/24 07:11 RBC 4.38 M/uL (4.70-6.10) L 05/01/24 07:11 Hgb 12.5 g/dl (14.0-18.0) L 05/01/24 07:11 Hct 38.1 % (42.0-52.0) L 05/01/24 07:11 MCV 87.0 fL (80.0-100.0) 05/01/24 07:11 MCH 28.5 pg (25.0-34.0) 05/01/24 07:11 MCHC 32.8 g/dL (32.0-36.0) 05/01/24 07:11 RDW Std Deviation 51.8 fL (36.4-46.3) H 05/01/24 07:11 RDW Coeff of Karlene 16.4 % (11.5-14.5) H 05/01/24 07:11 Plt Count 344 K/uL (130-400) 05/01/24 07:11 MPV 10.4 fL (9.4-12.4) 05/01/24 07:11 Immature Gran % (Auto) 0.8 % 04/28/24 10:14 Neut % (Auto) 80.1 % 04/28/24 10:14 Lymph % (Auto) 7.6 % 04/28/24 10:14 Glynn % (Auto) 10.0 % 04/28/24 10:14 Eos % (Auto) 1.1 % 04/28/24 10:14 Baso % (Auto) 0.4 % 04/28/24 10:14 Neut # (Auto) 10.61 K/uL (1.40-6.50) H 04/28/24 10:14 Lymph # (Auto) 1.00 K/uL (1.20-3.40) L 04/28/24 10:14 Glynn # (Auto) 1.33 K/uL (0.11-0.59) H 04/28/24 10:14 Eos # (Auto) 0.14 K/uL (0.00-0.50) 04/28/24 10:14 Baso # (Auto) 0.05 K/uL (0.00-0.20) 04/28/24 10:14 Immature Gran # (Auto) 0.11 K/uL (0.01-0.20) 04/28/24 10:14 Sodium 135 mmol/L (136-145) L 05/01/24 07:11 Potassium 5.0 mmol/L (3.5-5.1) 05/01/24 07:11 Chloride 100 mmol/L (98-107) 05/01/24 07:11 Carbon Dioxide 28 mmol/L (21-32) 05/01/24 07:11 Anion Gap 7 (3-11) 05/01/24 07:11 BUN 40 mg/dl (6-23) H 05/01/24 07:11 Creatinine 1.22 mg/dl (0.6-1.4) 05/01/24 07:11 Est Cr Clr Drug Dosing 41.8 ml/min 05/01/24 07:11 Est GFR ( Amer) 65.4 ml/min 05/01/24 07:11 Est GFR (Non-Af Amer) 56.4 ml/min 05/01/24 07:11 BUN/Creatinine Ratio 32.8 (10-20) H 05/01/24 07:11 Glucose 89 mg/dl (70-99(Fasting)) 05/01/24 07:11 Calcium 9.3 mg/dl (8.6-10.3) 05/01/24 07:11 Magnesium 2.0 mg/dl (1.7-2.4) 04/30/24 05:42 Total Bilirubin 0.7 mg/dl (0.2-1.0) 04/28/24 10:14 AST 37 U/L (13-39) 04/28/24 10:14 ALT 17 U/L (7-52) 04/28/24 10:14 Alkaline Phosphatase 335 U/L (34-104) H 04/28/24 10:14 Troponin I High Sens 13.8 pg/ml (0-20) 04/28/24 22:41 B-Natriuretic Peptide 210 pg/ml (0-100) H 04/28/24 10:14 Total Protein 6.2 gm/dl (6.0-8.3) 04/28/24 10:14 Albumin 3.2 gm/dl (3.4-5.0) L 04/28/24 10:14 Globulin 3.0 gm/dl (2.5-4.0) 04/28/24 10:14 Albumin/Globulin Ratio 1.1 (0.9-2) 04/28/24 10:14 Urine Color Yellow 04/28/24 10:22 Urine Appearance Clear (Clear) 04/28/24 10:22 Urine pH 6.5 (4.5-7.5) 04/28/24 10:22 Ur Specific [place] 1.017 (1.000-1.030) 04/28/24 10:22 Urine Protein Negative (Negative) 04/28/24 10:22 Urine Glucose (UA) Negative (Negative) 04/28/24 10:22 Urine Ketones 1+ (Negative) H 04/28/24 10:22 Urine Blood Negative (Negative) 04/28/24 10:22 Urine Nitrite Negative (Negative) 04/28/24 10:22 Urine Bilirubin Negative (Negative) 04/28/24 10:22 Urine Urobilinogen Negative (Negative) 04/28/24 10:22 Ur Leukocyte Esterase Negative (Negative) 04/28/24 10:22 Adenovirus (PCR) Not Detected (NotDetected) 04/28/24 10:22 B. pertussis DNA (PCR) Not Detected (NotDetected) 04/28/24 10:22 B.parapertussis DNA PCR Not Detected (NotDetected) 04/28/24 10:22 C. pneumoniae DNA (PCR) Not Detected (NotDetected) 04/28/24 10:22 Coronavirus OC43 (PCR) Not Detected (NotDetected) 04/28/24 10:22 Coronavirus HKU1 (PCR) Not Detected (NotDetected) 04/28/24 10:22 Coronavirus 229E (PCR) Not Detected (NotDetected) 04/28/24 10:22 SARS-CoV-2 (PCR) Not Detected (NotDetected) 04/28/24 10:22 Coronavirus NL63 (PCR) Not Detected (NotDetected) 04/28/24 10:22 Human Metapneumovir PCR Not Detected (NotDetected) 04/28/24 10:22 Influenza Type A (PCR) Not Detected (NotDetected) 04/28/24 10:22 Influenza Type B (PCR) Not Detected (NotDetected) 04/28/24 10:22 M. pneumoniae (PCR) Not Detected (NotDetected) 04/28/24 10:22 Parainfluenza 1 (PCR) Not Detected (NotDetected) 04/28/24 10:22 Parainfluenza 2 (PCR) Not Detected (NotDetected) 04/28/24 10:22 Parainfluenza 3 (PCR) Not Detected (NotDetected) 04/28/24 10:22 Parainfluenza 4 (PCR) Not Detected (NotDetected) 04/28/24 10:22 RSV (PCR) Not Detected (NotDetected) 04/28/24 10:22 Entero/Rhino (PCR) Not Detected (NotDetected) 04/28/24 10:22
[2024-05-02 07:20] VITALS: PULSE 69
[2024-05-02 08:12] VITALS: BP 112/75; RESP 18; TEMP 97.5; O2SAT 91
[2024-05-02] MEDS: dexAMETHasone 4 MG in SYRINGE 0 ML IV SCH (08:15)
--- NOTE | 2024-05-02 12:13 | Discharge Summary ---
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 EMS reported patient was hypoxic in the low 80s initially but improved in the ED and is now saturating 94% on room air. Endorses feeling more short of breath over the past few days and noticed some swelling in his ankles since yesterday. Has s ome pain across chest and onto R side with deep inspiration. Pain is non- radiating. No palpitations. Denies any history of known heart failure. No fever, chills, cough or congestion. Follows with Dr. Perez of heme onc with history of high-grade urothelial carcinoma involving the bladder status post resection followed by the treatment with BCG twice in 2017. Had a follow-up CT scan done on 08/31/2023 that unfortunately showed disease progression with worsening nodular density left nephrectomy bed as well as metastases with indeterminate right lung nodule. Chemo treatment has been on hold for the last 3 weeks because of the deteriorating of his general condition and performance status. Per heme onc note, Dr. Perez has discussed with patient and in detail the diagnosis and prognosis as patient has an incurable disease. Is due for follow up blood work with Dr. Perez tomorrow. Does feel appetite has improved with Megace. No N/V. + Generalized weakness, no recent falls. Following with [facility] palliative service, has discussed hospice and not interested at this time. Admission Exam Per Admitting Provider General Appearance: WD/WN, vitals as above, NAD, sitting up in bed, pleasant, appears chronically ill, conversing easily Head: normocephalic, atraumatic Eyes: normal inspection, PERRL, conjunctivae normal, anicteric sclerae ENT: external ear and nose normal, oropharynx normal Neck: normal visual inspection, trachea midline, no thyromegaly Respiratory: normal respiratory effort, lungs clear to auscultation, no wheeze, rales, rhonchi. No accessory muscle use Cardiovascular: regular rate, rhythm, normal peripheral pulses, 1+ BLE edema. Vessels: no JVD Chest: normal inspection of chest Abdomen/GI: normal bowel sounds, soft, nontender, no hepatosplenomegaly Extremities/Musculoskeletal: no cyanosis or clubbing, extremities motor stren [facility] 01/19 Neurologic: PERRL, EOMI, accommodation nl, no face palsy, no dysarthria, CN's II-XI intact bilaterally and moves all extremities Psychiatric: A+Ox3, depressed mood Skin: no rashes, normal color, warm/dry Principal Diagnosis Metastatic ureteral transitional cell carcinoma Discharge Exam General- adult, elderly male seen lying in bed. Severe cachexia and wasting. Head- atraumatic Eyes- PERRL, EOMI, anicteric ENT- oropharynx clear dry Neck- supple, no JVD, Lungs- clear to auscultation and percussion, diminished breath sounds in the bases Heart- regular rhythm; no murmur, Abdomen- normal bowel sounds, soft, nontender, no masses or hepatosplenomegaly Extremities- no pretibial edema, no calf tenderness; peripheral pulses intact Neuro- alert, oriented x 3; Skin- warm & dry Discharge Data Allergies Allergy/AdvReac Type Severity Reaction Status Date / Time lisinopril Allergy Severe LIP EDEMA Verified 11/28/23 19:39 Consultations 04/28/24 17:59 Consult Palliative Care Routine 04/29/24 14:09 Consult Oncology Routine Ordered Studies 04/28/24 15:05 CT chest diagnostic wo con Urgent 04/28/24 15:07 US venous doppler LE Routine Laboratory Results WBC 19.88 K/ul (4.8-10.8) H 05/01/24 07:11 RBC 4.38 M/uL (4.70-6.10) L 05/01/24 07:11 Hgb 12.5 g/dl (14.0-18.0) L 05/01/24 07:11 Hct 38.1 % (42.0-52.0) L 05/01/24 07:11 MCV 87.0 fL (80.0-100.0) 05/01/24 07:11 MCH 28.5 pg (25.0-34.0) 05/01/24 07:11 MCHC 32.8 g/dL (32.0-36.0) 05/01/24 07:11 RDW Std Deviation 51.8 fL (36.4-46.3) H 05/01/24 07:11 RDW Coeff of Karlene 16.4 % (11.5-14.5) H 05/01/24 07:11 Plt Count 344 K/uL (130-400) 05/01/24 07:11 MPV 10.4 fL (9.4-12.4) 05/01/24 07:11 Immature Gran % (Auto) 0.8 % 04/28/24 10:14 Neut % (Auto) 80.1 % 04/28/24 10:14 Lymph % (Auto) 7.6 % 04/28/24 10:14 Isabella % (Auto) 10.0 % 04/28/24 10:14 Eos % (Auto) 1.1 % 04/28/24 10:14 Baso % (Auto) 0.4 % 04/28/24 10:14 Neut # (Auto) 10.61 K/uL (1.40-6.50) H 04/28/24 10:14 Lymph # (Auto) 1.00 K/uL (1.20-3.40) L 04/28/24 10:14 Isabella # (Auto) 1.33 K/uL (0.11-0.59) H 04/28/24 10:14 Eos # (Auto) 0.14 K/uL (0.00-0.50) 04/28/24 10:14 Baso # (Auto) 0.05 K/uL (0.00-0.20) 04/28/24 10:14 Immature Gran # (Auto) 0.11 K/uL (0.01-0.20) 04/28/24 10:14 Sodium 135 mmol/L (136-145) L 05/01/24 07:11 Potassium 5.0 mmol/L (3.5-5.1) 05/01/24 07:11 Chloride 100 mmol/L (98-107) 05/01/24 07:11 Carbon Dioxide 28 mmol/L (21-32) 05/01/24 07:11 Anion Gap 7 (3-11) 05/01/24 07:11 BUN 40 mg/dl (6-23) H 05/01/24 07:11 Creatinine 1.22 mg/dl (0.6-1.4) 05/01/24 07:11 Est Cr Clr Drug Dosing 41.8 ml/min 05/01/24 07:11 Est GFR ( Amer) 65.4 ml/min 05/01/24 07:11 Est GFR (Non-Af Amer) 56.4 ml/min 05/01/24 07:11 BUN/Creatinine Ratio 32.8 (10-20) H 05/01/24 07:11 Glucose 89 mg/dl (70-99(Fasting)) 05/01/24 07:11 Calcium 9.3 mg/dl (8.6-10.3) 05/01/24 07:11 Magnesium 2.0 mg/dl (1.7-2.4) 04/30/24 05:42 Total Bilirubin 0.7 mg/dl (0.2-1.0) 04/28/24 10:14 AST 37 U/L (13-39) 04/28/24 10:14 ALT 17 U/L (7-52) 04/28/24 10:14 Alkaline Phosphatase 335 U/L (34-104) H 04/28/24 10:14 Troponin I High Sens 13.8 pg/ml (0-20) 04/28/24 22:41 B-Natriuretic Peptide 210 pg/ml (0-100) H 04/28/24 10:14 Total Protein 6.2 gm/dl (6.0-8.3) 04/28/24 10:14 Albumin 3.2 gm/dl (3.4-5.0) L 04/28/24 10:14 Globulin 3.0 gm/dl (2.5-4.0) 04/28/24 10:14 Albumin/Globulin Ratio 1.1 (0.9-2) 04/28/24 10:14 Urine Color Yellow 04/28/24 10:22 Urine Appearance Clear (Clear) 04/28/24 10:22 Urine pH 6.5 (4.5-7.5) 04/28/24 10:22 Ur Specific [place] 1.017 (1.000-1.030) 04/28/24 10:22 Urine Protein Negative (Negative) 04/28/24 10:22 Urine Glucose (UA) Negative (Negative) 04/28/24 10:22 Urine Ketones 1+ (Negative) H 04/28/24 10:22 Urine Blood Negative (Negative) 04/28/24 10:22 Urine Nitrite Negative (Negative) 04/28/24 10:22 Urine Bilirubin Negative (Negative) 04/28/24 10:22 Urine Urobilinogen Negative (Negative) 04/28/24 10:22 Ur Leukocyte Esterase Negative (Negative) 04/28/24 10:22 Adenovirus (PCR) Not Detected (NotDetected) 04/28/24 10:22 B. pertussis DNA (PCR) Not Detected (NotDetected) 04/28/24 10:22 B.parapertussis DNA PCR Not Detected (NotDetected) 04/28/24 10:22 C. pneumoniae DNA (PCR) Not Detected (NotDetected) 04/28/24 10:22 Coronavirus OC43 (PCR) Not Detected (NotDetected) 04/28/24 10:22 Coronavirus HKU1 (PCR) Not Detected (NotDetected) 04/28/24 10:22 Coronavirus 229E (PCR) Not Detected (NotDetected) 04/28/24 10:22 SARS-CoV-2 (PCR) Not Detected (NotDetected) 04/28/24 10:22 Coronavirus NL63 (PCR) Not Detected (NotDetected) 04/28/24 10:22 Human Metapneumovir PCR Not Detected (NotDetected) 04/28/24 10:22 Influenza Type A (PCR) Not Detected (NotDetected) 04/28/24 10:22 Influenza Type B (PCR) Not Detected (NotDetected) 04/28/24 10:22 M. pneumoniae (PCR) Not Detected (NotDetected) 04/28/24 10:22 Parainfluenza 1 (PCR) Not Detected (NotDetected) 04/28/24 10:22 Parainfluenza 2 (PCR) Not Detected (NotDetected) 04/28/24 10:22 Parainfluenza 3 (PCR) Not Detected (NotDetected) 04/28/24 10:22 Parainfluenza 4 (PCR) Not Detected (NotDetected) 04/28/24 10:22 RSV (PCR) Not Detected (NotDetected) 04/28/24 10:22 Entero/Rhino (PCR) Not Detected (NotDetected) 04/28/24 10:22 Impressions Chest X-Ray 04/28/24 09:24 XR chest 1V portable HISTORY: 79 years-old Male Dyspnea COMPARISON: 03/26/2024 TECHNIQUE: AP view of the chest FINDINGS: Cardiac mediastinal and hilar silhouettes are unchanged. Right IJ Bdhsuf-e-Amma catheter is in stable positioning. Unchanged left greater than right pleural effusion with left basilar predominant consolidation. 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 No pneumothorax or pulmonary edema. Bones appear grossly intact. IMPRESSION: 1. Left greater right pleural effusions with left basilar consolidation again noted. 2. Multifocal pulmonary metastasis redemonstrated. ACT 112: Negative or not required by law. The above report was generated using voice recognition software. It may contain grammatical, syntax or spelling errors. Electronically signed by: Narendra Mckee M.D. 04/28/2024 11:[address] 04/28/24 15:05 CT chest diagnostic wo con CT DOSE: 269.24 mGy.cm CLINICAL HISTORY: 79 years-old Male with SOB, h/o met cancer to lung. Acute shortness of breath. TECHNIQUE: Multiaxial CT images of the chest were performed without contrast. A dose lowering technique was utilized adhering to the principles of ALARA. COMPARISON: Chest CT 11/28/2023, CT abdomen and pelvis 03/26/2024. FINDINGS: No thyroid nodule. Limited study without the use of IV contrast. Progressive lymphadenopathy includes an index 1.7 x 1.6 cm right paratracheal lymph node on image 94 series 4, previously 1.2 x 1.1 cm. The lymph nodes within the posterior mediastinum adjacent to the esophagus have also increased in size. Trace pericardial effusion. Extensive coronary artery calcifications. Mild ectasia of the ascending thoracic aorta, 3.9 cm. Right IJ Rrtrui-v-Tbzf catheter in the distal tip terminates within the mid SVC. Extensive pulmonary metastasis is redemonstrated, which has also progressed. This includes an index 2.1 cm right apical lesion on image 65, previously 1.2 cm. Intralobular septal thickening. Layering yuhaz-gc-xbbppuze pleural effusions. Pleural thickening is noted, left greater than right with mild bibasilar consolidation. Central airways are patent. Extensive hepatic metastasis have also progressed. A 6.5 cm lesion within the right hepatic lobe, previously measured 6 cm on the 03/26/24 study. 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 Osteolytic destructive lesion at C7 with pathologic compression fracture. No definite retropulsion. Numerous osteolytic body lesions. There may be tumor involvement involving the left neural foramen at T11-T12. IMPRESSION: 1. Progressive metastasis includes worsening of the lymphatic, pulmonary, hepatic and osteolytic skeletal disease. 2. Increased size of the pleural effusions with probable pleural metastasis. 3. Intralobular septal thickening may represent a component of pulmonary edema. 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 4. Bony destruction/pathologic fracturing involves several bilateral ribs and also the C7 vertebral body without retropulsion. ACT 112: Negative or not required by law. Dictated: 04/28/2024 4:15 PM Transcribed: 04/28/2024 4:38 PM Johnny [id number] [email or web address] Electronically signed by: Narendra Mckee M.D. 04/28/2024 5:06 PM Venous Doppler Study 04/28/24 15:07 BILATERAL LOWER EXTREMITY VENOUS DOPPLER HISTORY: Acute pain and swelling of the lower legs BLE edema COMPARISON STUDY: None. FINDINGS: There is normal compressibility, flow, and augmentation within the bilateral lower extremity deep venous systems. IMPRESSION: No DVT within the right or left lower extremity. ACT 112: Negative or not required by law. Electronically signed by: Narendra Mckee M.D. 04/28/2024 4:26 PM Pulmonary Perfusion Imaging 04/29/24 17:59 NM pul perfusion CLINICAL HISTORY: Redness of breath.. COMPARISON STUDY: Chest CT 04/28/2024. TECHNIQUE: Immediately following intravenous administration of 5.6 mCi of technetium 99 M MAA for the perfusion scan, anterior, oblique, lateral, and posterior views of the chest were obtained. FINDINGS: Scattered small perfusion defects seen throughout the lungs likely corresponds the patient's known pulmonary metastases. Blunting of the costophrenic sulci consistent with the patient's small bilateral pleural effusions. No large defects identified. IMPRESSION: Scattered small perfusion defects within the lungs likely corresponds the patient's known pulmonary metastases. Therefore, this is consistent with a low probability scan. ACT 112: Negative or not required by law. Electronically signed by: Troy Livingston M.D. 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 Metastatic disease Metastatic pleural effusions Transient hypoxia, pleuritic chest pain likely due to above H/O high-grade urothelial carcinoma with metastasis to lung, liver, bone --Chest CT:Progressive metastasis includes worsening of the lymphatic, pulmonary, hepatic and osteolytic skeletal disease. Increased size of the pleural effusions with probable pleural metastasis. Intralobular septal thickening may represent a component of pulmonary edema. 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 Bony destruction/pathologic fracturing involves several bilateral ribs and also the C7 vertebral body without retropulsion. --CT ABD from 03/26/24:Findings consistent with worsening metastatic disease with interval increase in innumerable intrahepatic hypodensities. Innumerable pulmonary metastatic lesions. Left pleural effusion stable when compared to prior exam. Periaortic lymphadenopathy also noted. --Venous Doppler:No DVT within the right or left lower extremity. --V/Q Scan: Scattered small perfusion defects within the lungs likely corresponds the patient's known pulmonary metastases. Therefore, this is consistent with a low probability scan. -- Started on IV Decadron as recommended by oncology -- Appreciate palliative care consult Pain control Consulted [facility] oncology for second opinion as requested. Recommendations noted Continue O2 Bowel regimen to prevent constipation Nebs PRN Hyperkalemia Status post IV calcium gluconate Monitor potassium levels closely slight improvement today Low potassium diet Leukocytosis probably from the steroid use. H/O Metastatic urothelial carcinoma with mets to R lung, s/p nephrectomy Follows with Dr. Perez - Had a follow-up CT scan done on 08/31/2023 that unfortunately showed disease progression with worsening nodular density left nephrectomy bed as well as metastases with indeterminate right lung nodule. Wants to follow now with Li May MD Chemo treatment has been on hold for the last 3 weeks because of the deteriorating of his general condition and performance status Per oncology outpatient record: Patient was informed poor prognosis and incurable Following with [facility] palliative service, hospice was discussed again. The family and pt have agreed for home with [facility] hospice services. They will pick him up today and supply all needed equipment today Continue gabapentin, Megace, PRN tylenol BPH Continue Flomax HS DVT Px: SQ heparin Code status: DNR/DNI Patient discharged to home hospice. Will start MS Contin 15 mg twice daily. Short acting oxycodone 10 mg every 4 hours for breakthrough. Scopolamine patch ordered. prognosis is terminal days to weeks Home Health Attestation I certify that this patient is under my care and that I, or a physicians assistant casino shift manager working with me, had a face to-face encounter that meets the home health [id number] encounter requirements with this patient. The encounter with the patient was in whole, or in part, for the following medical condition, which is the primary reason for home health care (list medical condition): I certify that, based on my findings, the following services are medically necessary home health services: My clinical findings support the need for the above services because: Further, I certify that my clinical findings support that this patient is homebound (i.e. absences from home require considerable and taxing effort and are for medical reasons or adventism services or infrequently or of short duration when for other reasons) because: Certification for Home Health Services: Based on the above findings, I certify that this patient is confined to the home and needs intermittent senior living care, physical therapy and/or speech therapy or continues to need occupational therapy. The patient is under my care, and I have initiated the establishment of the plan of care. This patient will be followed by a physician who will periodically review the plan of care. Total Time Total Time Spent Total Time Spent (In Minutes): 60 minutes Discharge Plan Discharge Items Patient Disposition: Hospice - Home Reason For Visit: shortness of breath, met cancer to lung Discharge Diagnosis: Diffusely metastatic ureteral transitional cell carcinoma Hypoxic respiratory failure due to large metastatic burden to the lungs Severe cancer cachexia malnourishment Activity: As commented below Activity Comment: Activity as tolerated Non-emergency contact: Primary Care Provider, Oncologist and Campaign Director Call non-emergency contact if: your pain is not controlled and your pain is worsening Follow-up/Referrals: Elissa Carrero M.D. [Primary Care Provider] - Dietitian Info: [facility] hosp[facility] feeds Diet: Regular Addtl Attending Provider Instructions: Pt discharged to home hospice Pending Studies at Discharge: No Stand-Alone Forms: My [facility] Medications and DC Order Prescriptions: New morphine [MS Contin] 15 mg tablet extended release 15 mg PO Q12H Qty: 15 0RF oxycodone 10 mg tablet 10 mg PO Q4H PRN (Reason: pain) Qty: 15 0RF scopolamine base 1 mg over 3 days patch 3 day 1 patch transdermal Q3D PRN (Reason: nausea and vomiting) Qty: 4 0RF Continued gabapentin 600 mg tablet 600 mg PO BID ondansetron HCl 8 mg Tablet 8 mg PO Q8H PRN (Reason: NAUSEA/VOMITING) lidocaine-prilocaine 2.5-2.5 % cream 1 applic topical DIRECTED PRN (Reason: 1 HR PRIOR TO MEDIPORT ACCESS) Rx Instructions: COVER WITH WRAP FOR 1 HR PRIOR TO ACCESS. lidocaine 5 % Adhesive Patch,Medicated 1 patch TOPICAL DAILY PRN (Reason: Pain) Rx Instructions: leave on most painful area for up to 12 hrs tamsulosin 0.4 mg capsule 0.4 mg PO HS megestrol 625 mg/5 mL (125 mg/mL) suspension 5 ml PO DAILY Discontinued tramadol 50 mg tablet 50 mg PO Q8H PRN (Reason: Pain) Discharge Orders: Discharge Order (Routine); Ordered 05/02/24 Ordered By: Franklyn [place] Admission Data Admit Date/Time: 04/28/24 13:40 Attending Provider: Franklyn [place] Admit Provider: Oli Kuhn Primary Care Provider: Elissa Carrero Other Providers: Bethany Chavis; Allen Mckay; Kendra Clifford; Wendy Greer; Shane Curiel; Manuela Tucker; Quynh Nash; Mich Clarke; Jer Terrell; Li May; Bridgette,No Attending; Reinaldo Wheatley
== END 2024-05-02 13:51 | disposition hospice, home (50) | DRG 180 ==
LOC: ED 09:16 → 2W 13:40 → SUATTDRO 13:40 → 2W 15:32